=== PATIENT | male | born 1965 | race Caucasian/White ===

== ENCOUNTER 2019-08-26 19:35 | Emergency (ER) | payer BC ==
[~2019-08-26] VITALS: Ht 172.7 cm; Wt 96.2 kg
[~2019-08-26 19:35] MED LIST: GABAPENTIN300 MG PO; JARDIANCE PO; LISINOPRIL-HCT1 EAC1 PO; LISINOPRIL10 MG PO; LOVASTATIN20 MG PO; METFORMIN HCL500 MG PO
--- OUTSIDE RECORDS SUMMARY | 2019-08-26 19:38 | XMS REPORT ---
Author Author Admin, [place] Organization [facility] [address] [facility] [address] [place] [address] Phone Allergies, Adverse Reactions, Alerts Allergy Name Reaction Description Start Date Severity Status Provider NIFEDIPINE Facial swelling Critical Active Jennifer Malin MD CHLORTHALIDONE Facial swelling Critical Active Jennifer Malin MD Conditions or Problems Problem Name Problem Code Onset Date Status Entry Date Provider Comment Standard Description Annotate Health care maintenance V70.0 Active Jennifer Malin MD Routine general medical examination at a health care facility Liver function abnormality 794.8 Active Jennifer Malin MD Nonspecific abnormal results of function study of liver Obesity 278.00 Active Jennifer Malin MD Obesity, unspecified Tobacco use Active Jennifer Malin MD Tobacco use disorder Microalbuminuria 791.0 Active Ramiro Rizzo [employer] Proteinuria Peripheral vascular insufficiency 443.89 Active Ramiro Payam Friend'Isidro [employer] Other peripheral vascular disease Hyperlipidemia 272.4 Active Ramiro Payam Ronna'Isidro [employer] Other and unspecified hyperlipidemia Vitamin D deficiency 268.9 Active Ramiro Friend'Isidro [employer]C Unspecified vitamin D deficiency Diabetes mellitus, type II on oral hypoglycemics 250.00 Active Ramiro Friend'Isidro [employer] Diabetes mellitus without mention of complication, type II or unspecified type, not stated as uncontrolled A1c 9 Diabetic peripheral neuropathy 250.60 Active Ramiro Friend'Isidro [employer] Diabetes mellitus with neurological manifestations, type II or unspecified type, not stated as uncontrolled Erectile dysfunction 302.72 Active Ramiro Payam O'Isidro [employer] Psychosexual dysfunction with inhibited sexual excitement T level appropriate Hx of syncope V12.59 Active Ramiro Payam O'Isidro [employer] Other personal history of diseases of circulatory system Hypertension 401.1 Active Ramiro Payam O'Isidro [employer] Benign essential hypertension BMI 31.0-31.9 Inactive Jennifer Malin MD BMI 29.0-29.9 Inactive Ramiro Payam O'Isidro [employer] Colorectal screening ICD-V76.51 Inactive Ramiro Payam O'Isidro [employer] Preventive health care ICD-V70.0 Inactive Ramiro Payam O'Isidro [employer] Prostate Cancer, Screening ICD-V76.44 Inactive Ramiro Payam O'Isidro [employer] Candidal balanitis ICD-112.2 Inactive Ramiro Payam O'Isidro [employer] Immunization update ICD-V15.9 Inactive Ramiro Payam O'Isidro [employer] BMI 32.0-32.9 Inactive Ramiro Payam O'Isidro [employer] Bronchitis ICD-490 Inactive Ramiro Payam O'Isidro [employer] Vaccination Against Influenza V04.81 Inactive Ramiro Payam Ronna'Isidro [employer] Need for prophylactic vaccination and inoculation against influenza at outside clinic Vaccination Against Influenza ICD-V04.81 Inactive Ramiro Payam Ronna'Isidro [employer]C Helicobacter pylori gastrointestinal tract infection ICD-041.86 Inactive Ramiro Payam O'Isidro [employer] Hypercholesterolemia 272.0 Inactive Ramiro Hare O'Isidro [employer]C Pure hypercholesterolemia 10y ASCVD=15.9%; consider high intensity statin Abdominal pain, left upper quadrant ICD-789.02 Inactive Ramiro Hare O'Isidro [employer] Overweight ICD-278.02 Inactive Jennifer Malin MD BMI 31.0-31.9 Resolved Jennifer Malin MD Body Mass Index 31.0-31.9, adult BMI 29.0-29.9 Resolved Ramiro Payam O'Isidro [employer] Body Mass Index 29.0-29.9, adult Colorectal screening V76.51 Resolved Ramiro Hare O'Isidro [employer]C Screening for malignant neoplasms of colon Preventive health care V70.0 Resolved Ramiro Payam O'Isidro [employer]-C Routine general medical examination at a health care facility Prostate Cancer, Screening V76.44 Resolved Ramiro Payam O'Isidro [employer] Screening for malignant neoplasms of prostate Candidal balanitis 112.2 Resolved Ramiro Hare O'Isidro [employer]C Candidiasis of other urogenital sites Immunization update V15.9 Resolved Ramiro Friend'Isidro [employer]C Unspecified personal history presenting hazards to health BMI 32.0-32.9 Resolved Ramiro Payam O'Isidro [employer] Body Mass Index 32.0-32.9, adult Bronchitis 490 Resolved Ramiro Payam O'Isidro [employer] Bronchitis, not specified as acute or chronic Helicobacter pylori gastrointestinal tract infection 041.86 Resolved Ramiro Hare O'Isidro [employer] Helicobacter pylori [H. pylori] Abdominal pain, left upper quadrant 789.02 Resolved Ramiro Rizzo [employer]C Abdominal pain, left upper quadrant Overweight 278.02 Resolved Jennifer Malin MD Overweight Medication List Medication Instructions Start Date Stop Date Generic Name NDC Status Provider Patient Instruction ATORVASTATIN CALCIUM 10 MG TABS Take one daily ATORVASTATIN CALCIUM 41879487321 Active Paula Norman [employer]ER Active HYDROCHLOROTHIAZIDE 25 MG ORAL TABLET 1 by mouth every day HYDROCHLOROTHIAZIDE 17465532564 Active Paula Norman [employer]LE SPR[employer]ER Active JANUVIA 100 MG TABLET TAKE ONE TABLET BY MOUTH EVERY DAY SITAGLIPTIN PHOSPHATE 98927200752 Active Jessica Herbert MD Active OLMESARTAN MEDOXOMIL 40 MG ORAL TABLET 1 tab By Mouth Every Day OLMESARTAN MEDOXOMIL 20048515129 Active Paula Norman [employer]LE [employer]ER Active GLIPIZIDE 10 MG ORAL TABLET take 1 tablet Twice a Day GLIPIZIDE 61594624672 Active Paula Norman [employer]ATTLE SPRAYER Active METFORMIN HCL 1000 MG ORAL TABLET 1 tab by mouth twice a day METFORMIN HCL 06160667280 Active Paula Norman [employer]LE SPR[employer]ER Active ASPIRIN 81 MG ORAL TABLET 1 by mouth every day ASPIRIN 34917249602 Active Ramiro Rizzo [employer] Active GABAPENTIN 300 MG ORAL CAPSULE 2 caps By Mouth Twice a Day GABAPENTIN 91379101966 Active Karen Bishop MedAdherence Active CHLORTHALIDONE 25 MG ORAL TABLET 1 tab By Mouth Every Morning CHLORTHALIDONE 25 MG ORAL TABLET 453665 CHLORTHALIDONE Inactive NIFEDIPINE ER 90 MG ORAL TABLET EXTENDED RELEASE 24 HOUR 1 by mouth every day NIFEDIPINE ER 90 MG ORAL TABLET EXTENDED RELEASE 24 HOUR NIFEDIPINE Inactive JANUVIA 50 MG ORAL TABLET 1 By Mouth once a day JANUVIA 50 MG ORAL TABLET SITAGLIPTIN PHOSPHATE Inactive DIFLUCAN 150 MG ORAL TABLET 1 by mouth now. May repeat in three days. DIFLUCAN 150 MG ORAL TABLET 19760717 FLUCONAZOLE Inactive DIFLUCAN 150 MG ORAL TABLET 1 tab by mouth now. Repeat in three days. DIFLUCAN 150 MG ORAL TABLET 19760717 FLUCONAZOLE Inactive FARXIGA 5 MG ORAL TABLET Take 1 tablet by mouth daily FARXIGA 5 MG ORAL TABLET DAPAGLIFLOZIN PROPANEDIOL Inactive BROMFED DM 30-2-10 MG/5ML ORAL SYRUP 10 mL every four hours as needed for cough/congestion BROMFED DM 30-2-10 MG/5ML ORAL SYRUP 3035630 [id number] Inactive FLONASE ALLERGY RELIEF 50 MCG/ACT NASAL SUSPENSION 1 spray in each nostril every day As Needed FLONASE ALLERGY RELIEF 50 MCG/ACT NASAL SUSPENSION 7143508 FLUTICASONE PROPIONATE Inactive MEDROL 4 MG ORAL TABLET THERAPY PACK use as directed MEDROL 4 MG ORAL TABLET THERAPY PACK 164618 METHYLPREDNISOLONE Inactive AMLODIPINE BESYLATE 10 MG ORAL TABLET 1 tab by mouth daily AMLODIPINE BESYLATE 10 MG ORAL TABLET 807934 AMLODIPINE BESYLATE Inactive GLIPIZIDE XL 5 MG ORAL TABLET EXTENDED RELEASE 24 HOUR 1 tab By Mouth Every Day with first meal GLIPIZIDE XL 5 MG ORAL TABLET EXTENDED RELEASE 24 HOUR GLIPIZIDE Inactive NIFEDIPINE ER 90 MG ORAL TABLET EXTENDED RELEASE 24 HOUR 1 by mouth every day NIFEDIPINE ER 90 MG ORAL TABLET EXTENDED RELEASE 24 HOUR NIFEDIPINE Inactive AMOXICILLIN 500 MG ORAL CAPSULE 1 by mouth Twice a Day for 14 days AMOXICILLIN 500 MG ORAL CAPSULE 153817 AMOXICILLIN Inactive BIAXIN 500 MG ORAL TABLET 1 by mouth twice a day for 14 days BIAXIN 500 MG ORAL TABLET CLARITHROMYCIN Inactive GLIMEPIRIDE 2 MG ORAL TABLET 1 By Mouth Twice a Day with largest meals GLIMEPIRIDE 2 MG ORAL TABLET 243136 GLIMEPIRIDE Inactive LIPITOR 40 MG ORAL TABLET 1 by mouth every pm LIPITOR 40 MG ORAL TABLET 858942 ATORVASTATIN CALCIUM Inactive OMEPRAZOLE 20 MG ORAL CAPSULE DELAYED RELEASE 1 by mouth Twice a Day for 14 days OMEPRAZOLE 20 MG ORAL CAPSULE DELAYED RELEASE 437464 OMEPRAZOLE Inactive JANUMET 50-1000 MG ORAL TABLET 1 tab By Mouth Twice a Day JANUMET 50-1000 MG ORAL TABLET SITAGLIPTIN-METFORMIN HCL Inactive LISINOPRIL 20 MG ORAL TABLET 1 by mouth every day in the evening LISINOPRIL 20 MG ORAL TABLET 473721 LISINOPRIL Inactive LISINOPRIL-HYDROCHLOROTHIAZIDE 20-25 MG ORAL TABLET 1 by mouth daily in the morning LISINOPRIL-HYDROCHLOROTHIAZIDE 20-25 MG ORAL TABLET 542416 LISINOPRIL-HYDROCHLOROTHIAZIDE Inactive CHLORTHALIDONE 25 MG ORAL TABLET 1 tab By Mouth Every Morning CHLORTHALIDONE 37347726920 No Longer Active Jennifer Malin MD Active NIFEDIPINE ER 90 MG ORAL TABLET EXTENDED RELEASE 24 HOUR 1 by mouth every day NIFEDIPINE 27905333087 No Longer Active Jennifer Malin MD Active JANUVIA 50 MG ORAL TABLET 1 By Mouth once a day SITAGLIPTIN PHOSPHATE 39664443497 No Longer Active Ramiro Rizzo [employer]ER-C Active DIFLUCAN 150 MG ORAL TABLET 1 by mouth now. May repeat in three days. FLUCONAZOLE 14360781920 No Longer Active Ramiro Rizzo [employer]-C Active DIFLUCAN 150 MG ORAL TABLET 1 tab by mouth now. Repeat in three days. FLUCONAZOLE 29340530015 No Longer Active Ramiro Rizzo [employer]-C Active FARXIGA 5 MG ORAL TABLET Take 1 tablet by mouth daily DAPAGLIFLOZIN PROPANEDIOL 96877024445 No Longer Active Jessica Herbert MD Active INVOKANA 300 MG ORAL TABLET 1 tab By Mouth Every Morning CANAGLIFLOZIN 92240891581 No Longer Active Ramiro Rizzo [employer]ER-C Active JARDIANCE 25 MG ORAL TABLET 1 tab By Mouth Every Morning EMPAGLIFLOZIN 40362749400 No Longer Active Ramiro Rizzo [employer]-C Active BROMFED DM 30-2-10 MG/5ML ORAL SYRUP 10 mL every four hours as needed for cough/congestion [id number] 45302646713 No Longer Active Ramiro Rizzo [employer]ER-C Active FLONASE ALLERGY RELIEF 50 MCG/ACT NASAL SUSPENSION 1 spray in each nostril every day As Needed FLUTICASONE PROPIONATE 76482356929 No Longer Active Jennifer Malin MD Active MEDROL 4 MG ORAL TABLET THERAPY PACK use as directed METHYLPREDNISOLONE 01733518169 No Longer Active Ramiro Rizzo [employer]ER-C Active AMLODIPINE BESYLATE 10 MG ORAL TABLET 1 tab by mouth daily AMLODIPINE BESYLATE 47831646888 No Longer Active Ramiro Rizzo [employer]ER-C Active GLIPIZIDE XL 5 MG ORAL TABLET EXTENDED RELEASE 24 HOUR 1 tab By Mouth Every Day with first meal GLIPIZIDE 64149624630 No Longer Active Ramiro Rizzo [employer]ER-C Active NIFEDIPINE ER 90 MG ORAL TABLET EXTENDED RELEASE 24 HOUR 1 by mouth every day NIFEDIPINE 48071313563 No Longer Active Ramiro Rizzo [employer]ER-C Active AMOXICILLIN 500 MG ORAL CAPSULE 1 by mouth Twice a Day for 14 days AMOXICILLIN 53065782141 No Longer Active Ramiro Rizzo [employer]ER-C Active BIAXIN 500 MG ORAL TABLET 1 by mouth twice a day for 14 days CLARITHROMYCIN 27955669219 No Longer Active Ramiro Rizzo [employer]ER-C Active GLIMEPIRIDE 2 MG ORAL TABLET 1 By Mouth Twice a Day with largest meals GLIMEPIRIDE 19697388369 No Longer Active Ramiro Rizzo [employer]ER-C Active LIPITOR 40 MG ORAL TABLET 1 by mouth every pm ATORVASTATIN CALCIUM 43383914418 No Longer Active Ramiro Rizzo [employer]ER-C Active LOVASTATIN 20 MG ORAL TABLET 1 by mouth every night LOVASTATIN 23013829656 No Longer Active Ramiro Rizzo [employer]ER-C Active OMEPRAZOLE 20 MG ORAL CAPSULE DELAYED RELEASE 1 by mouth Twice a Day for 14 days OMEPRAZOLE 65828688845 No Longer Active Ramiro Payam Rizzo [employer]ER-C Active JANUMET 50-1000 MG ORAL TABLET 1 tab By Mouth Twice a Day SITAGLIPTIN-METFORMIN HCL 18728459323 No Longer Active Ramiro Rizzo [employer]ER-C Active LISINOPRIL 20 MG ORAL TABLET 1 by mouth every day in the evening LISINOPRIL 22763022943 No Longer Active Ramiro Payam Rizzo [employer]ER-C Active LISINOPRIL-HYDROCHLOROTHIAZIDE 20-25 MG ORAL TABLET 1 by mouth daily in the morning LISINOPRIL-HYDROCHLOROTHIAZIDE 45228078712 No Longer Active Ramiro Payam Rizzo [employer]ER-C Active METFORMIN HCL 1000 MG ORAL TABLET 1 by mouth twice a day METFORMIN HCL 46457501404 No Longer Active Ramiro Rizzo [employer]ER-C Active Advance Directives Directive Description Start Date DISCUSSED - NO DECISION MADE Immunizations Vaccine Administration Date Value Standard Description influenza immunization (Flu Vax) has been administered given influenza virus vaccine, unspecified formulation pneumococcal immunization administered given pneumococcal polysaccharide vaccine, 23 valent PEDIATRIC PNEUMOCOCCAL VACCINE ([id number]) #1 given pneumococcal conjugate vaccine, 13 valent Tetanus toxoid, reduced diphtheria toxoid and acellular Pertussis vaccine, absorbed (TdaP) given given tetanus toxoid, reduced diphtheria toxoid, and acellular pertussis vaccine, adsorbed Vital Signs Date Name Value Unit Range Description blood pressure, diastolic 89 mm[Hg] BP dumont blood pressure, systolic 192 mm[Hg] BP sys height E&M 69 [in_us] Bdy height pulse rate E&M 68 /min Heart rate respiratory rate E&M 18 /min Resp rate temperature E&M 97.5 [degF] Body temperature weight E&M 218 [lb_av] Weight Measured blood pressure, diastolic, second observation 91 mm[Hg] BP dumont blood pressure, diastolic, third observation 84 mm[Hg] BP dumont blood pressure, diastolic 84 mm[Hg] BP dumont blood pressure, systolic, second observation 199 mm[Hg] BP sys blood pressure, systolic, third observation 191 mm[Hg] BP sys blood pressure, systolic 191 mm[Hg] BP sys height E&M 69 [in_us] Bdy height pulse rate E&M 58 /min Heart rate respiratory rate E&M 12 /min Resp rate temperature E&M 98.1 [degF] Body temperature weight E&M 221 [lb_av] Weight Measured blood pressure, diastolic 76 mm[Hg] BP dumont blood pressure, systolic 162 mm[Hg] BP sys height E&M 69 [in_us] Bdy height pulse rate E&M 63 /min Heart rate temperature E&M 98.3 [degF] Body temperature weight E&M 215 [lb_av] Weight Measured blood pressure, diastolic 90 mm[Hg] BP dumont blood pressure, systolic 171 mm[Hg] BP sys height E&M 69 [in_us] Bdy height pulse rate E&M 59 /min Heart rate temperature E&M 97.6 [degF] Body temperature weight E&M 208.44 [lb_av] Weight Measured Diagnostic Results Date Name Value Unit Range Description Lab Report: CBC With Differential/Platelet, Comp. Metabolic Panel (14), ... - Urinalysis mucus on urinalysis Present Not Estab. Lab Report: CBC With Differential/Platelet, Comp. Metabolic Panel (14), ... - Chemistry thyroid stimulating hormone, serum 3.010 u[iU]/mL 0.450-4.500 Lab Report: CBC With Differential/Platelet, Comp. Metabolic Panel (14), ... - Urinalysis WBC urine on microscopy 0-5 /hpf {Cells}/[HPF] 0 - 5 Lab Report: CBC With Differential/Platelet, Comp. Metabolic Panel (14), ... - Chemistry very low density lipoproteins 27 mg/dL 5-40 testosterone, total 776 ng/dL [id number] hepatitis B surface antigen Negative Negative Lab Report: CBC With Differential/Platelet, Comp. Metabolic Panel (14), ... - Urinalysis epithelial cells, urine 0-10 /[LPF] 0 - 10 Lab Report: CBC With Differential/Platelet, Comp. Metabolic Panel (14), ... - Chemistry chloride, serum 100 mmol/L 96-106 urea nitrogen, blood 14 mg/dL 6-24 Lab Report: CBC With Differential/Platelet, Comp. Metabolic Panel (14), ... - Urinalysis leukocyte esterase, urine, by dipstick Negative Negative Lab Report: CBC With Differential/Platelet, Comp. Metabolic Panel (14), ... - Serology Helicobacter pylori antibody, IgG, serum 5.4 U/mL 0.0-0.8 Lab Report: QuantiFERON TB Gold (In Tube), QuantiFERON In Tube - Hematology Quantiferon Gold TB blood test for tuberculosis screening Negative Negative Lab Report: CBC With Differential/Platelet, Comp. Metabolic Panel (14), ... - Hematology mean corpuscular hemoglobin concentration, RBC 33.4 G/DL % 31.5-35.7 erythrocyte (RBC) count 3.89 X10E6/UL 10*6/mm3 4.14-5.80 Lab Report: CBC With Differential/Platelet, Comp. Metabolic Panel (14), ... - Serology hepatitis C antibody, serum 0.1 0.0-0.9 Lab Report: CBC With Differential/Platelet, Comp. Metabolic Panel (14), ... - Urinalysis urine color Yellow Yellow Lab Report: CBC With Differential/Platelet, Comp. Metabolic Panel (14), ... - Chemistry Absolute Neutrophils 5.0 X10E3/UL 10*3/uL 1.4-7.0 Lab Report: CBC With Differential/Platelet, Comp. Metabolic Panel (14), ... - Urinalysis bilirubin, urine Negative Negative Lab Report: CBC With Differential/Platelet, Comp. Metabolic Panel (14), ... - Chemistry LDL cholesterol, serum 104 mg/dL 0-99 urea nitrogen/creatinine ratio, serum 14 9-20 Lab Report: CBC With Differential/Platelet, Comp. Metabolic Panel (14), ... - Hematology mean corpuscular volume, RBC 98 fL 79-97 Lab Report: CBC With Differential/Platelet, Comp. Metabolic Panel (14), ... - Chemistry HDL cholesterol, serum 76 mg/dL >39 Lab Report: CBC With Differential/Platelet, Comp. Metabolic Panel (14), ... - Hematology monocytes as percent of blood leukocytes 10 % Not Estab. Lab Report: CBC With Differential/Platelet, Comp. Metabolic Panel (14), ... - Chemistry albumin/globulin ratio, serum 1.0 1.2-2.2 creatinine, serum 1.00 mg/dL 0.76-1.27 cholesterol, serum 207 mg/dL 100-199 Lab Report: Albumin/Creatinine Ratio,Urine - Chemistry creatinine, random, urine 86.4 mg/dL Not Estab. Lab Report: CBC With Differential/Platelet, Comp. Metabolic Panel (14), ... - Chemistry bilirubin, serum, total 0.4 mg/dL 0.0-1.2 Lab Report: CBC With Differential/Platelet, Comp. Metabolic Panel (14), ... - Hematology Eosinophil Absolute Count 0.3 X10E3/UL 10*3/uL 0.0-0.4 Lab Report: CBC With Differential/Platelet, Comp. Metabolic Panel (14), ... - Lab chlamydia DNA probe Negative Negative Lab Report: CBC With Differential/Platelet, Comp. Metabolic Panel (14), ... - Urinalysis appearance, urine Clear Clear Lab Report: CBC With Differential/Platelet, Comp. Metabolic Panel (14), ... - Chemistry aspartate aminotransferase (SGOT), serum 62 U/L 0-40 Lab Report: CBC With Differential/Platelet, Comp. Metabolic Panel (14), ... - Hematology red blood cell distribution width 14.1 % 12.3-15.4 Lab Report: CBC With Differential/Platelet, Comp. Metabolic Panel (14), ... - Urinalysis urinalysis, microscopic examination MICRON Lab Report: CBC With Differential/Platelet, Comp. Metabolic Panel (14), ... - Hematology leukocyte count, blood 8.2 X10E3/UL 10*3/mm3 3.4-10.8 Lab Report: CBC With Differential/Platelet, Comp. Metabolic Panel (14), ... - Urinalysis pH, urine, semiquantitative 5.5 5.0-7.5 Lab Report: CBC With Differential/Platelet, Comp. Metabolic Panel (14), ... - Chemistry potassium, serum 4.8 mmol/L 3.5-5.2 immature granulocytes, percentage of total cells, blood 0 % Not Estab. albumin, serum 3.6 g/dL 3.5-5.5 Lab Report: CBC With Differential/Platelet, Comp. Metabolic Panel (14), ... - Hematology lymphocyte count, blood, automated 2.0 X10E3/UL 10*3/mm3 0.7-3.1 hematocrit, blood 38.0 % 37.5-51.0 Lab Report: CBC With Differential/Platelet, Comp. Metabolic Panel (14), ... - Microbiology Neisseria gonorrhoeae DNA probe Negative Negative Lab Report: CBC With Differential/Platelet, Comp. Metabolic Panel (14), ... - Chemistry sodium, serum 138 mmol/L 134-144 Lab Report: CBC With Differential/Platelet, Comp. Metabolic Panel (14), ... - Hematology neutrophils as percent of blood leukocytes 62 % Not Estab. basophils as percent of blood leukocytes 0 % Not Estab. Lab Report: CBC With Differential/Platelet, Comp. Metabolic Panel (14), ... - Chemistry specific gravity, body fluid >1.030 1.005-1.030 RBC, Urine 0-2 /hpf /[HPF] 0 - 2 Lab Report: CBC With Differential/Platelet, Comp. Metabolic Panel (14), ... - Urinalysis protein, urine, semiquantitative (dipstick) Negative Negative/Trace Lab Report: CBC With Differential/Platelet, Comp. Metabolic Panel (14), ... - Serology rapid plasma reagin antibody, serum Non Reactive Non Reactive Lab Report: CBC With Differential/Platelet, Comp. Metabolic Panel (14), ... - Microbiology microscopic exam See below: Lab Report: CBC With Differential/Platelet, Comp. Metabolic Panel (14), ... - Chemistry carbon dioxide, venous blood 22 mmol/L 20-29 nitrate, urine Negative Negative triglyceride, serum, fasting 137 mg/dL 0-149 calcium, serum 9.1 mg/dL 8.7-10.2 Lab Report: Albumin/Creatinine Ratio,Urine - Chemistry microalbumin/creatinine ratio, urine 3742.4 MG/G CREAT ug/mg 0.0-30.0 Lab Report: CBC With Differential/Platelet, Comp. Metabolic Panel (14), ... - Chemistry alanine aminotransferase (SGPT), serum 81 U/L 0-44 Lab Report: CBC With Differential/Platelet, Comp. Metabolic Panel (14), ... - Hematology mean corpuscular hemoglobin, RBC 32.6 pg 26.6-33.0 Append: Adult Followup - Chemistry blood glucose, fasting 138 mg/dL Lab Report: CBC With Differential/Platelet, Comp. Metabolic Panel (14), ... - Chemistry lipase, serum 38 U/L [iU]/L 0-59 Lab Report: CBC With Differential/Platelet, Comp. Metabolic Panel (14), ... - Urinalysis bacteria, urine microscopy None seen None seen/Few Lab Report: CBC With Differential/Platelet, Comp. Metabolic Panel (14), ... - Chemistry protein, total, serum 7.3 g/dL 6.0-8.5 alkaline phosphatase, serum 305 U/L 39-117 Lab Report: CBC With Differential/Platelet, Comp. Metabolic Panel (14), ... - Hematology hemoglobin, blood 12.7 g/dL 13.0-17.7 lymphocytes as percent of blood leukocytes 24 % Not Estab. Lab Report: CBC With Differential/Platelet, Comp. Metabolic Panel (14), ... - Chemistry hemoglobin A1C, blood, as % of total hemoglobin 9.8 % 4.8-5.6 Lab Report: CBC With Differential/Platelet, Comp. Metabolic Panel (14), ... - Urinalysis glucose, urine, semiquantitative 3+ Negative Lab Report: CBC With Differential/Platelet, Comp. Metabolic Panel (14), ... - Genetics/fertility eGFR if 99 mL/min/1.73m2 >59 Lab Report: CBC With Differential/Platelet, Comp. Metabolic Panel (14), ... - Hematology basophil count, absolute 0.0 x10E3/uL 0.0-0.2 Lab Report: CBC With Differential/Platelet, Comp. Metabolic Panel (14), ... - Chemistry globulin, serum 3.7 1.5-4.5 Estimated Glomerular Filtration Rate (calc) 86 mL/min/1.73m2 >59 vitamin D 25-hydroxy, serum 25.3 ng/mL 30.0-100.0 Lab Report: CBC With Differential/Platelet, Comp. Metabolic Panel (14), ... - Basic Occult Blood, urine Negative Negative Lab Report: CBC With Differential/Platelet, Comp. Metabolic Panel (14), ... - Chemistry testosterone, serum, free 5.7 pg/mL 7.2-24.0 Lab Report: Albumin/Creatinine Ratio,Urine - Urinalysis microalbumin/total urine volume 3233.4 mg/L Not Estab. Lab Report: CBC With Differential/Platelet, Comp. Metabolic Panel (14), ... - Hematology eosinophils as percent of blood leukocytes 4 % Not Estab. Office Visit: Adult Followup rm 1.1 - Chemistry blood glucose, random 292 mg/dL Lab Report: CBC With Differential/Platelet, Comp. Metabolic Panel (14), ... - Urinalysis urobilinogen, urine, semiquantitative (dipstick) 0.2 0.2-1.0 Lab Report: CBC With Differential/Platelet, Comp. Metabolic Panel (14), ... - Chemistry prostate specific antigen 0.8 ng/mL 0.0-4.0 amylase, serum 44 U/L 31-124 Lab Report: CBC With Differential/Platelet, Comp. Metabolic Panel (14), ... - Hematology monocyte count, blood, automated 0.9 X10E3/UL 10*3/uL 0.1-0.9 platelet count 291 X10E3/UL 10*3/mm3 150-379 Lab Report: CBC With Differential/Platelet, Comp. Metabolic Panel (14), ... - Urinalysis ketones, urine, by test strip Negative Negative Encounters Date Encounter Provider Code Facility 05:47:04 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 Ofc Vst, Est Level IV Paula Norman [facility] CPT-16309 [facility] 09:22:37 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 Est Patient Detailed - 73596 Jennifer Malin MD CPT-73293 [facility] 13:43:17 CDT Est Patient Detailed - 27916 Ramiro Rizzo [facility] CPT-46950 [facility] 10:46:18 CDT Ofc Vst, Est Level IV Jessica Herbert MD CPT-99569 [facility] 12:28:41 CDT Ofc Vst, Est Level IV Jessica Herbert MD CPT-98014 [facility] 16:41:49 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 Est Patient Detailed - 16440 Ramiro Rizzo [facility] [facility] [id number] [facility] 10:27:20 CDT Est Patient Detailed - [id number] Ramiro Friend'Isidro CATTLE SPRAYER-C CPT-63702 [facility] 09:14:47 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 Est Patient Detailed - [id number] Ramiro Friend'Isidro CATTLE SPRAYER-C CPT-43095 [facility] 09:10:51 CDT Est Patient Exp Problem - 61030 Ramiro Friend'Isidro CATTLE SPRAYER-C CPT-32488 [facility] 09:13:46 CDT Est Patient Exp Problem - [id number] Ramiro Hare O'Isidro CATTLE SPRAYER-C CPT-93759 [facility] 09:32:15 CDT Est Patient Exp Problem - 47389 Ramiro Friend'Isidro CATTLE SPRAYER-C CPT-40366 [facility] 15:37:18 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 Est Patient Problem Focus - [id number] Ramiro Friend'Isidro CATTLE SPRAYER-C CPT-25913 [facility] 10:58:05 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 Est Patient Exp Problem - 12487 Ramiro Friend'Isidro CATTLE SPRAYER-C CPT-51211 [facility] 17:14:40 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 New Patient Comprehensive - [id number] Ramiro العراقيIsidro CATTLE SPRAYER-C CPT-27162 [facility] Procedures Code Procedure Name Date Entry Date Standard Description CPT-67574 INFLUENZA VACCINE QUADRIVALENT 3 YRS PLUS IM 09:22:50 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 CPT-47093 Admin of Vaccine - Injection - 1 09:22:49 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 CPT-98018 Glucose Stick 10:46:18 CDT CPT-54150 Pneumovax Vaccine PPSV23 17:00:21 CDT CPT-27268 Admin of Vaccine - Injection - 1 17:00:21 CDT CPT-59666 Est Patient Well Exam (40 - 64 Yrs) - 19637 17:00:10 CDT CPT-67434 Prevnar (PCV13) IM 10:27:23 CDT CPT-67358 TDAP 10:27:23 CDT CPT-09817 Admin of Vaccine - Injection - Each Add'l 10:27:23 CDT CPT-82460 Admin of Vaccine - Injection - 1 10:27:23 CDT CPT-37660 Glucose Stick 10:58:08 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 CPT-68215 Glucose Stick 17:14:43 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 CPT-41368 Venipuncture 17:14:43 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 CPT-44834 Handling of specimen for transfer 17:14:42 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
--- OUTSIDE RECORDS SUMMARY | 2019-08-26 19:38 | XMS REPORT ---
Author Author Admin, [place] Organization [facility] Adult [facility] Address [address] [facility] [address] [address] [place] [address] Phone Allergies, Adverse Reactions, Alerts Allergy Name Reaction Description Start Date Severity Status Provider NIFEDIPINE Facial swelling Critical Active Jennifer Malin MD CHLORTHALIDONE Facial swelling Critical Active Jennifer Malin MD Conditions or Problems Problem Name Problem Code Onset Date Status Entry Date Provider Comment Standard Description Annotate Allergic rhinitis, seasonal 477.0 Active Paula Norman WATERSHED TENDER Allergic rhinitis due to pollen Rash and other nonspecific skin eruption 782.1 Active Paula Norman WATERSHED TENDER Rash and other nonspecific skin eruption Health care maintenance V70.0 Active Jennifer Malin MD Routine general medical examination at a health care facility Liver function abnormality 794.8 Active Jennifer Malin MD Nonspecific abnormal results of function study of liver Obesity 278.00 Active Jennifer Malin MD Obesity, unspecified Tobacco use Active Jennifer Malin MD Tobacco use disorder Microalbuminuria 791.0 Active Ramiro Rizzo [employer]-C Proteinuria Peripheral vascular insufficiency 443.89 Active Ramiro Friend'Isidro [employer]ER-C Other peripheral vascular disease Hyperlipidemia 272.4 Active Ramiro Friend'Isidro [employer]-C Other and unspecified hyperlipidemia Vitamin D deficiency 268.9 Active Ramiro Friend'Isidro [employer]-C Unspecified vitamin D deficiency Diabetes mellitus, type II on oral hypoglycemics 250.00 Active Ramiro Payam O'Isidro [employer]-C Diabetes mellitus without mention of complication, type II or unspecified type, not stated as uncontrolled A1c 9 Diabetic peripheral neuropathy 250.60 Active Ramiro Payam FriendTimIsidro [employer] T[employer]-C Diabetes mellitus with neurological manifestations, type II or unspecified type, not stated as uncontrolled Erectile dysfunction 302.72 Active Ramiro Payam FriendTimIsidro [employer]-C Psychosexual dysfunction with inhibited sexual excitement T level appropriate Hx of syncope V12.59 Active Ramiro Payam Friend'Isidro [employer]-C Other personal history of diseases of circulatory system Hypertension 401.1 Active Ramiro Friend'Isidro [employer]ER-C Benign essential hypertension BMI 31.0-31.9 Inactive Jennifer Malin MD BMI 29.0-29.9 Inactive Ramiro Payam Ronna'Isidro [employer] TENDER-C Colorectal screening ICD-V76.51 Inactive Ramiro Payam Ronna'Isidro [employer]ER-C Preventive health care ICD-V70.0 Inactive Ramiro Payam O'Isidro [employer] Prostate Cancer, Screening ICD-V76.44 Inactive Ramiro Payam Ronna'Isidro [employer]-C Candidal balanitis ICD-112.2 Inactive Ramiro Payam Ronna'Isidro [employer]-C Immunization update ICD-V15.9 Inactive Ramiro Payam Ronna'Isidro [employer] T[employer]ER-C BMI 32.0-32.9 Inactive Ramiro Payam O'Isidro [employer]-C Bronchitis ICD-490 Inactive Ramiro Payam Ronna'Isidro [employer]-C Vaccination Against Influenza V04.81 Inactive Ramiro Friend'Isidro [employer]ER-C Need for prophylactic vaccination and inoculation against influenza at outside clinic Vaccination Against Influenza ICD-V04.81 Inactive Ramiro Payam O'Isidro [employer]C Helicobacter pylori gastrointestinal tract infection ICD-041.86 Inactive Ramiro Payam O'Isidro [employer]-C Hypercholesterolemia 272.0 Inactive Ramiro Payam O'Isidro [employer]SH[employer] TENDER-C Pure hypercholesterolemia 10y ASCVD=15.9%; consider high intensity statin Abdominal pain, left upper quadrant ICD-789.02 Inactive Ramiro Payam O'Isidro [employer]-C Overweight ICD-278.02 Inactive Jennifer Malin MD BMI 31.0-31.9 Resolved Jennifer Malin MD Body Mass Index 31.0-31.9, adult BMI 29.0-29.9 Resolved Ramiro Payam Ronna'Isidro [employer]SH[employer] TENDER-C Body Mass Index 29.0-29.9, adult Colorectal screening V76.51 Resolved Ramiro Payam O'Isidro [employer] T[employer]-C Screening for malignant neoplasms of colon Preventive health care V70.0 Resolved Ramiro Payam O'Isidro [employer]SH[employer] TENDER-C Routine general medical examination at a health care facility Prostate Cancer, Screening V76.44 Resolved Ramiro Payam O'Isidro [employer] T[employer]ER-C Screening for malignant neoplasms of prostate Candidal balanitis 112.2 Resolved Ramiro Payam O'Isidro [employer]-C Candidiasis of other urogenital sites Immunization update V15.9 Resolved Ramiro Payam O'Isidro [employer]SH[employer] TENDER-C Unspecified personal history presenting hazards to health BMI 32.0-32.9 Resolved Ramiro Payam O'Isidro [employer] T[employer]-C Body Mass Index 32.0-32.9, adult Bronchitis 490 Resolved Ramiro Payam O'Isidro [employer] TENDER-C Bronchitis, not specified as acute or chronic Helicobacter pylori gastrointestinal tract infection 041.86 Resolved Ramiro Hare Matthias [employer]SH[employer] TENDER-C Helicobacter pylori [H. pylori] Abdominal pain, left upper quadrant 789.02 Resolved Ramiro Hare Matthias [employer]SH[employer] TENDER-C Abdominal pain, left upper quadrant Overweight 278.02 Resolved Jennifer Malin MD Overweight Medication List Medication Instructions Start Date Stop Date Generic Name NDC Status Provider Patient Instruction BD PEN NEEDLE SHORT U/F 31G X 8 MM use for lantus injections INSULIN PEN NEEDLE 78137728702 Active Jessica Herbert MD Active GLIPIZIDE 10 MG ORAL TABLET 1 tab By Mouth Twice a Day GLIPIZIDE 86592301507 Active Paula Norman WATERSHED TENDER Active LANTUS SOLOSTAR 100 UNIT/ML SUBCUTANEOUS SOLUTION PEN-INJECTOR inject 20 units daily at 9 AM INSULIN GLARGINE 60438476553 Active Jessica Herbert MD Active LORATADINE 10 MG ORAL TABLET 1 By Mouth once a day as needed for allergies LORATADINE 62341683532 Active Paula Norman [facility] Active NASONEX 50 MCG/ACT NASAL SUSPENSION 2 sprays each nostril every day MOMETASONE FUROATE 53800238103 Active Paula Norman WATERSHED TENDER Active TRIAMCINOLONE ACETONIDE 0.1 % EXTERNAL CREAM apply to affected area three times a day as needed for itching and red rash TRIAMCINOLONE ACETONIDE 48762811577 Active Paula Norman WATERSHED TENDER Active ATORVASTATIN CALCIUM 20 MG ORAL TABLET 1 tab By Mouth Every Day ATORVASTATIN CALCIUM 84741078773 Active Paula Norman WATERSHED TENDER Active HYDROCHLOROTHIAZIDE 25 MG ORAL TABLET 1 by mouth every day HYDROCHLOROTHIAZIDE 33067324710 Active Paula Norman WATERSHED TENDER Active JANUVIA 100 MG TABLET TAKE ONE TABLET BY MOUTH EVERY DAY SITAGLIPTIN PHOSPHATE 67466346241 Active Jessica Herbert MD Active AMLODIPINE BESYLATE 5 MG ORAL TABLET 1 tab by mouth daily AMLODIPINE BESYLATE 51955654152 Active Jessica Herbert MD Active LISINOPRIL 40 MG ORAL TABLET 1 by mouth every day LISINOPRIL 87769327303 Active Paula Norman WATERSHED TENDER Active METFORMIN HCL 1000 MG ORAL TABLET 1 tab by mouth twice a day METFORMIN HCL 44043758123 Active Paula Norman WATERSHED TENDER Active ASPIRIN 81 MG ORAL TABLET 1 by mouth every day ASPIRIN 63426553872 Active Ramiro Hare Matthias WATERSHED TENDER-C Active GABAPENTIN 300 MG ORAL CAPSULE 2 caps By Mouth Twice a Day GABAPENTIN 75481745213 Active 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[employer], 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 LANTUS SOLOSTAR 100 UNIT/ML SUBCUTANEOUS SOLUTION PEN-INJECTOR inject 20 units take at bedtime LANTUS SOLOSTAR 100 UNIT/ML SUBCUTANEOUS SOLUTION PEN-INJECTOR INSULIN GLARGINE Inactive CHLORTHALIDONE 25 MG ORAL TABLET 1 tab By Mouth Every Morning CHLORTHALIDONE 25 MG ORAL TABLET 024428 CHLORTHALIDONE Inactive NIFEDIPINE ER 90 MG ORAL TABLET EXTENDED RELEASE 24 HOUR 1 by mouth every day NIFEDIPINE ER 90 MG ORAL TABLET EXTENDED RELEASE 24 HOUR NIFEDIPINE Inactive GLIPIZIDE 10 MG ORAL TABLET take 1 tablet Twice a Day GLIPIZIDE 10 MG ORAL TABLET 747603 GLIPIZIDE Inactive JANUVIA 50 MG ORAL TABLET 1 By Mouth once a day JANUVIA 50 MG ORAL TABLET SITAGLIPTIN PHOSPHATE Inactive DIFLUCAN 150 MG ORAL TABLET 1 by mouth now. May repeat in three days. DIFLUCAN 150 MG ORAL TABLET 19760717 FLUCONAZOLE Inactive DIFLUCAN 150 MG ORAL TABLET 1 tab by mouth now. Repeat in three days. DIFLUCAN 150 MG ORAL TABLET 823594 FLUCONAZOLE Inactive FARXIGA 5 MG ORAL TABLET Take 1 tablet by mouth daily FARXIGA 5 MG ORAL TABLET DAPAGLIFLOZIN PROPANEDIOL Inactive BROMFED DM 30-2-10 MG/5ML ORAL SYRUP 10 mL every four hours as needed for cough/congestion BROMFED DM 30-2-10 MG/5ML ORAL SYRUP 4077779 LORRPZYAY-OWOHXURF-UC Inactive FLONASE ALLERGY RELIEF 50 MCG/ACT NASAL SUSPENSION 1 spray in each nostril every day As Needed FLONASE ALLERGY RELIEF 50 MCG/ACT NASAL SUSPENSION 6947637 FLUTICASONE PROPIONATE Inactive MEDROL 4 MG ORAL TABLET THERAPY PACK use as directed MEDROL 4 MG ORAL TABLET THERAPY PACK 211480 METHYLPREDNISOLONE Inactive AMLODIPINE BESYLATE 10 MG ORAL TABLET 1 tab by mouth daily AMLODIPINE BESYLATE 10 MG ORAL TABLET 432596 AMLODIPINE BESYLATE Inactive GLIPIZIDE XL 5 MG [...] 14 days AMOXICILLIN 500 MG ORAL CAPSULE 963923 AMOXICILLIN Inactive BIAXIN 500 MG ORAL TABLET 1 by mouth twice a day for 14 days BIAXIN 500 MG ORAL TABLET CLARITHROMYCIN Inactive GLIMEPIRIDE 2 MG ORAL TABLET 1 By Mouth Twice a Day with largest meals GLIMEPIRIDE 2 MG ORAL TABLET 225528 GLIMEPIRIDE Inactive LIPITOR 40 MG ORAL TABLET 1 by mouth every pm LIPITOR 40 MG ORAL TABLET 077653 ATORVASTATIN CALCIUM Inactive OMEPRAZOLE 20 MG ORAL CAPSULE DELAYED RELEASE 1 by mouth Twice a Day for 14 days OMEPRAZOLE 20 MG ORAL CAPSULE DELAYED RELEASE 961870 OMEPRAZOLE Inactive JANUMET 50-1000 MG ORAL TABLET 1 tab By Mouth Twice a Day JANUMET 50-1000 MG ORAL TABLET SITAGLIPTIN-METFORMIN HCL Inactive LISINOPRIL 20 MG ORAL TABLET 1 by mouth every day in the evening LISINOPRIL 20 MG ORAL TABLET 624133 LISINOPRIL Inactive LISINOPRIL-HYDROCHLOROTHIAZIDE 20-25 MG ORAL TABLET 1 by mouth daily in the morning LISINOPRIL-HYDROCHLOROTHIAZIDE 20-25 MG ORAL TABLET 069521 LISINOPRIL-HYDROCHLOROTHIAZIDE Inactive LANTUS SOLOSTAR 100 UNIT/ML SUBCUTANEOUS SOLUTION PEN-INJECTOR inject 20 units take at bedtime INSULIN GLARGINE 37443719961 No Longer Active Paula Canalesmalina POLK Active CHLORTHALIDONE 25 MG ORAL TABLET 1 tab By Mouth Every Morning CHLORTHALIDONE 54502502623 No Longer Active Jennifer Malin MD Active NIFEDIPINE ER 90 MG ORAL TABLET EXTENDED RELEASE 24 HOUR 1 by mouth every day NIFEDIPINE 57565204042 No Longer Active Jennifer Malin MD Active OLMESARTAN MEDOXOMIL 40 MG ORAL TABLET 1 tab By Mouth Every Day OLMESARTAN MEDOXOMIL 03736265449 No Longer Active Paula Castroelisa POLK Active GLIPIZIDE 10 MG ORAL TABLET take 1 tablet Twice a Day GLIPIZIDE 48320686296 No Longer Active Paula Emerson LOPEZP Active JANUVIA 50 MG ORAL TABLET 1 By Mouth once a day SITAGLIPTIN PHOSPHATE 93480627641 No Longer Active Ramiro Rizzo WATERSHED TENDER-C Active DIFLUCAN 150 MG ORAL TABLET 1 by mouth now. May repeat in three days. FLUCONAZOLE 93807277963 No Longer Active Ramiro Rizzo WATERSHED TENDER-C Active DIFLUCAN 150 MG ORAL TABLET 1 tab by mouth now. Repeat in three days. FLUCONAZOLE 95337178686 No Longer Active Ramiro Rizzo WATERSHED TENDER-C Active FARXIGA 5 MG ORAL TABLET Take 1 tablet by mouth daily DAPAGLIFLOZIN PROPANEDIOL 13701047159 No Longer Active Jessica Herbert MD Active INVOKANA 300 MG ORAL TABLET 1 tab By Mouth Every Morning CANAGLIFLOZIN 84708258820 No Longer Active Ramiro Rizzo WATERSHED TENDER-C Active JARDIANCE 25 MG ORAL TABLET 1 tab By Mouth Every Morning EMPAGLIFLOZIN 26098588177 No Longer Active Ramiro Rizzo WATERSHED TENDER-C Active BROMFED DM 30-2-10 MG/5ML ORAL SYRUP 10 mL every four hours as needed for cough/congestion [id number] 41363981896 No Longer Active Ramiro Rizzo WATERSHED TENDER-C Active FLONASE ALLERGY RELIEF 50 MCG/ACT NASAL SUSPENSION 1 spray in each nostril every day As Needed FLUTICASONE PROPIONATE 08126187860 No Longer Active Jennifer Malin MD Active MEDROL 4 MG ORAL TABLET THERAPY PACK use as directed METHYLPREDNISOLONE 96039183483 No Longer Active Ramiro Rizzo WATERSHED TENDER-C Active AMLODIPINE BESYLATE 10 MG ORAL TABLET 1 tab by mouth daily AMLODIPINE BESYLATE 69955136061 No Longer Active Ramiro Rizzo WATERSHED TENDER-C Active GLIPIZIDE XL 5 MG ORAL TABLET EXTENDED RELEASE 24 HOUR 1 tab By Mouth Every Day with first meal GLIPIZIDE 69313828040 No Longer Active Ramiro Rizzo WATERSHED TENDER-C Active NIFEDIPINE ER 90 MG ORAL TABLET EXTENDED RELEASE 24 HOUR 1 by mouth every day NIFEDIPINE 42647176369 No Longer Active Ramiro Rizzo WATERSHED TENDER-C Active AMOXICILLIN 500 MG ORAL CAPSULE 1 by mouth Twice a Day for 14 days AMOXICILLIN 25241930191 No Longer Active Ramiro Rizzo WATERSHED TENDER-C Active BIAXIN 500 MG ORAL TABLET 1 by mouth twice a day for 14 days CLARITHROMYCIN 74463428562 No Longer Active Ramiro Rizzo WATERSHED TENDER-C Active GLIMEPIRIDE 2 MG ORAL TABLET 1 By Mouth Twice a Day with largest meals GLIMEPIRIDE 13542114649 No Longer Active Ramiro Rizzo WATERSHED TENDER-C Active LIPITOR 40 MG ORAL TABLET 1 by mouth every pm ATORVASTATIN CALCIUM 97271270784 No Longer Active Ramiro Rizzo WATERSHED TENDER-C Active LOVASTATIN 20 MG ORAL TABLET 1 by mouth every night LOVASTATIN 46172477007 No Longer Active Ramiro Hare RonnaTimIsidro WATERSHED TENDER-C Active OMEPRAZOLE 20 MG ORAL CAPSULE DELAYED RELEASE 1 by mouth Twice a Day for 14 days OMEPRAZOLE 30520444155 No Longer Active Ramiro Payam FriendTimIsidro WATERSHED TENDER-C Active JANUMET 50-1000 MG ORAL TABLET 1 tab By Mouth Twice a Day SITAGLIPTIN-METFORMIN HCL 07485950801 No Longer Active Ramiro Payam Rizzo WATERSHED TENDER-C Active LISINOPRIL 20 MG ORAL TABLET 1 by mouth every day in the evening LISINOPRIL 42934549019 No Longer Active Ramiro Payam FriendTimIsidro WATERSHED TENDER-C Active LISINOPRIL-HYDROCHLOROTHIAZIDE 20-25 MG ORAL TABLET 1 by mouth daily in the morning LISINOPRIL-HYDROCHLOROTHIAZIDE 41455270504 No Longer Active Ramiro Payam Rizzo WATERSHED TENDER-C Active METFORMIN HCL 1000 MG ORAL TABLET 1 by mouth twice a day METFORMIN HCL 83545290076 No Longer Active Ramiro Payam FriendTimIsidro WATERSHED TENDER-C Active Advance Directives Directive Description Start Date DISCUSSED - NO DECISION MADE Immunizations Vaccine Administration Date Value Standard Description influenza immunization (Flu Vax) has been administered given influenza virus vaccine, unspecified formulation pneumococcal immunization administered given pneumococcal polysaccharide vaccine, 23 valent PEDIATRIC PNEUMOCOCCAL VACCINE ([id number]) #1 given pneumococcal conjugate vaccine, 13 valent Tetanus toxoid, reduced diphtheria toxoid and acellular Pertussis vaccine, absorbed (TdaP) given given tetanus toxoid, reduced diphtheria toxoid, and acellular pertussis vaccine, adsorbed Vital Signs Date Name Value Unit Range Description blood pressure, diastolic 91 mm[Hg] BP dumont blood pressure, systolic 202 mm[Hg] BP sys height E&M 69 [in_us] Bdy height pulse rate E&M 59 /min Heart rate temperature E&M 97.7 [degF] Body temperature weight E&M 212 [lb_av] Weight Measured blood pressure, diastolic, second observation 98 mm[Hg] BP dumont blood pressure, diastolic, third observation 98 mm[Hg] BP dumont blood pressure, diastolic 98 mm[Hg] BP dumont blood pressure, systolic, second observation 223 mm[Hg] BP sys blood pressure, systolic, third observation 182 mm[Hg] BP sys blood pressure, systolic 182 mm[Hg] BP sys height E&M 69 [in_us] Bdy height pulse rate E&M 59 /min Heart rate respiratory rate E&M 12 /min Resp rate temperature E&M 97.7 [degF] Body temperature weight E&M 212 [lb_av] Weight Measured blood pressure, diastolic 89 mm[Hg] BP dumont [...] temperature weight E&M 215 [lb_av] Weight Measured Diagnostic Results Date Name [...] /hpf {Cells}/[HPF] 0 - 5 Lab Report: Comp. Metabolic Panel (14), Lipid Panel, Cardiovascular Repo ... - Chemistry very low density lipoproteins 27 mg/dL 5-40 Lab Report: CBC With Differential/Platelet, Comp. Metabolic Panel (14), ... - Chemistry testosterone, total 776 ng/dL [phone] Lab Report: PSA, Serum (Serial Monitor), Hep B Surface Ab, Vitamin D, 25 ... - Chemistry hepatitis B surface antigen Negative Negative Lab Report: CBC With Differential/Platelet, Comp. Metabolic Panel (14), ... - Urinalysis epithelial cells, urine 0-10 /[LPF] 0 - 10 Lab Report: Comp. Metabolic Panel (14), Lipid Panel, Cardiovascular Repo ... - Chemistry chloride, serum 103 mmol/L 96-106 urea nitrogen, blood 22 mg/dL 6-24 Lab Report: CBC With Differential/Platelet, [...] Urinalysis bilirubin, urine Negative Negative Lab Report: Comp. Metabolic Panel (14), Lipid Panel, Cardiovascular Repo ... - Chemistry LDL cholesterol, serum 107 mg/dL 0-99 urea nitrogen/creatinine ratio, serum 15 9-20 Lab Report: CBC With Differential/Platelet, Comp. Metabolic Panel (14), ... - Hematology mean corpuscular volume, RBC 98 fL 79-97 Lab Report: Comp. Metabolic Panel (14), Lipid Panel, Cardiovascular Repo ... - Chemistry HDL cholesterol, serum 82 mg/dL >39 Lab Report: CBC With Differential/Platelet, Comp. Metabolic Panel (14), ... - Hematology monocytes as percent of blood leukocytes 10 % Not Estab. Lab Report: Comp. Metabolic Panel (14), Lipid Panel, Cardiovascular Repo ... - Chemistry albumin/globulin ratio, serum 0.8 1.2-2.2 creatinine, serum 1.51 mg/dL 0.76-1.27 cholesterol, serum 216 mg/dL 100-199 Lab Report: Albumin/Creatinine Ratio,Urine - Chemistry creatinine, random, urine 86.4 mg/dL Not Estab. Lab Report: Comp. Metabolic Panel (14), Lipid Panel, Cardiovascular Repo ... - Chemistry bilirubin, serum, total 0.4 mg/dL 0.0-1.2 Lab Report: CBC With Differential/Platelet, Comp. Metabolic Panel (14), ... - Hematology Eosinophil Absolute Count 0.3 X10E3/UL 10*3/uL 0.0-0.4 Lab Report: CBC With Differential/Platelet, Comp. Metabolic Panel (14), ... - Lab chlamydia DNA probe Negative Negative Lab Report: CBC With Differential/Platelet, Comp. Metabolic Panel (14), ... - Urinalysis appearance, urine Clear Clear Lab Report: Comp. Metabolic Panel (14), Lipid Panel, Cardiovascular Repo ... - Chemistry aspartate aminotransferase (SGOT), serum 72 U/L 0-40 Lab Report: CBC With Differential/Platelet, [...] pH, urine, semiquantitative 5.5 5.0-7.5 Lab Report: Comp. Metabolic Panel (14), Lipid Panel, Cardiovascular Repo ... - Chemistry potassium, serum 4.5 mmol/L 3.5-5.2 albumin, serum 3.0 g/dL 3.5-5.5 Lab Report: CBC With Differential/Platelet, Comp. Metabolic Panel (14), ... - Chemistry immature granulocytes, percentage of total cells, blood 0 % Not Estab. Lab Report: CBC With Differential/Platelet, Comp. Metabolic Panel (14), ... - Hematology lymphocyte count, blood, automated 2.0 X10E3/UL 10*3/mm3 0.7-3.1 hematocrit, blood 38.0 % 37.5-51.0 Lab Report: CBC With Differential/Platelet, Comp. Metabolic Panel (14), ... - Microbiology Neisseria gonorrhoeae DNA probe Negative Negative Lab Report: Comp. Metabolic Panel (14), Lipid Panel, Cardiovascular Repo ... - Chemistry sodium, serum 140 mmol/L 134-144 Lab Report: CBC With Differential/Platelet, [...] Microbiology microscopic exam See below: Lab Report: Comp. Metabolic Panel (14), Lipid Panel, Cardiovascular Repo ... - Chemistry carbon dioxide, venous blood 21 mmol/L 20-29 Lab Report: PSA, Serum (Serial Monitor), Hep B Surface Ab, Vitamin D, 25 ... - Serology hepatitis B core antibody, total Negative Negative Lab Report: CBC With Differential/Platelet, Comp. Metabolic Panel (14), ... - Chemistry nitrate, urine Negative Negative Lab Report: Comp. Metabolic Panel (14), Lipid Panel, Cardiovascular Repo ... - Chemistry triglyceride, serum, fasting 137 mg/dL 0-149 calcium, serum 8.8 mg/dL 8.7-10.2 Lab Report: Albumin/Creatinine Ratio,Urine - Chemistry microalbumin/creatinine ratio, urine 3742.4 MG/G CREAT ug/mg 0.0-30.0 Lab Report: Comp. Metabolic Panel (14), Lipid Panel, Cardiovascular Repo ... - Chemistry alanine aminotransferase (SGPT), serum 62 U/L 0-44 Lab Report: CBC With Differential/Platelet, [...] microscopy None seen None seen/Few Lab Report: Comp. Metabolic Panel (14), Lipid Panel, Cardiovascular Repo ... - Chemistry protein, total, serum 7.0 g/dL 6.0-8.5 alkaline phosphatase, serum 378 U/L 39-117 Lab Report: CBC With Differential/Platelet, Comp. Metabolic Panel (14), ... - Hematology hemoglobin, blood 12.7 g/dL 13.0-17.7 lymphocytes as percent of blood leukocytes 24 % Not Estab. Lab Report: Comp. Metabolic Panel (14), Lipid Panel, Cardiovascular Repo ... - Chemistry hemoglobin A1C, blood, as % of total hemoglobin 9.5 % 4.8-5.6 Lab Report: CBC With Differential/Platelet, Comp. Metabolic Panel (14), ... - Urinalysis glucose, urine, semiquantitative 3+ Negative Lab Report: Comp. Metabolic Panel (14), Lipid Panel, Cardiovascular Repo ... - Genetics/fertility eGFR if 60 mL/min/1.73m2 >59 Lab Report: CBC With Differential/Platelet, Comp. Metabolic Panel (14), ... - Hematology basophil count, absolute 0.0 x10E3/uL 0.0-0.2 Lab Report: Comp. Metabolic Panel (14), Lipid Panel, Cardiovascular Repo ... - Chemistry globulin, serum 4.0 1.5-4.5 Estimated Glomerular Filtration Rate (calc) 52 mL/min/1.73m2 >59 Lab Report: PSA, Serum (Serial Monitor), Hep B Surface Ab, Vitamin D, 25 ... - Chemistry vitamin D 25-hydroxy, serum 11.9 ng/mL 30.0-100.0 Lab Report: CBC With Differential/Platelet, Comp. Metabolic Panel (14), ... - Basic Occult Blood, urine Negative Negative Lab Report: CBC With Differential/Platelet, Comp. Metabolic Panel (14), ... - Chemistry testosterone, serum, free 5.7 pg/mL 7.2-24.0 Lab Report: PSA, Serum (Serial Monitor), Hep B Surface Ab, Vitamin D, 25 ... - Serology hepatitis B surface antibody Non Reactive Lab Report: Albumin/Creatinine Ratio,Urine - Urinalysis microalbumin/total urine volume 3233.4 mg/L Not Estab. Lab Report: CBC With Differential/Platelet, Comp. Metabolic Panel (14), ... - Hematology eosinophils as percent of blood leukocytes 4 % Not Estab. Lab Report: Comp. Metabolic Panel (14), Lipid Panel, Cardiovascular Repo ... - Chemistry blood glucose, random 163 mg/dL 65-99 Lab Report: CBC With Differential/Platelet, Comp. Metabolic Panel (14), ... - Urinalysis urobilinogen, urine, semiquantitative (dipstick) 0.2 0.2-1.0 Lab Report: PSA, Serum (Serial Monitor), Hep B Surface Ab, Vitamin D, 25 ... - Chemistry prostate specific antigen 0.7 ng/mL 0.0-4.0 Lab Report: CBC With Differential/Platelet, Comp. Metabolic Panel (14), ... - Chemistry amylase, serum 44 U/L 31-124 Lab Report: CBC With Differential/Platelet, Comp. Metabolic Panel (14), ... - Hematology monocyte count, blood, automated 0.9 X10E3/UL 10*3/uL 0.1-0.9 platelet count 291 X10E3/UL 10*3/mm3 150-379 Lab Report: CBC With Differential/Platelet, Comp. Metabolic Panel (14), ... - Urinalysis ketones, urine, by test strip Negative Negative Encounters Date Encounter Provider Code Facility 14:43:53 CDT Ofc Vst, Est Level IV Jessica Herbert MD CPT-44809 [facility] 10:16:11 CDT Ofc Vst, Est Level IV Paula Norman [facility] CPT-39883 [facility] 05:47:04 RADON INSPECTOR Ofc Vst, Est Level IV Paula Norman [facility] CPT-23516 [facility] 09:22:37 RADON INSPECTOR Est Patient Detailed - 91699 Jennifer Malin MD CPT-63959 [facility] 13:43:17 CDT Est Patient Detailed - [id number] Ramiro POLK-C CPT-69263 [facility] Adult [facility] 10:46:18 CDT Ofc Vst, Est Level IV Jessica Herbert MD CPT-92995 [facility] 12:28:41 CDT Ofc Vst, Est Level IV Jessica Herbert MD CPT-09372 [facility] 16:41:49 RADON INSPECTOR Est Patient Detailed - 41506 Ramiro Friend'Isidro [employer]SHED TENDER-C CPT-27369 [facility] 10:27:20 CDT Est Patient Detailed - 87215 Ramiro Hare O'Isidro [employer] TENDER-C CPT-61639 [facility] 09:14:47 RADON INSPECTOR Est Patient Detailed - 30431 Ramiro Hare O'Isidro W[employer]SHED TENDER-C CPT-17411 [facility] 09:10:51 CDT Est Patient Exp Problem - 77633 Ramiro Hare O'Isidro [employer]SH[employer] TENDER-C CPT-52227 [facility] 09:13:46 CDT Est Patient Exp Problem - 60748 Ramiro Hare O'Isidro WATERSHED TENDER-C CPT-83429 [facility] Adult Medicine 09:32:15 CDT Est Patient Exp Problem - 10556 Ramiro Hare O'Isidro WATERSHED TENDER-C CPT-99839 [facility] Adult Medicine 15:37:18 RADON INSPECTOR Est Patient Problem Focus - 73456 Ramiro Hare O'Isidro WATERSHED TENDER-C CPT-42644 [facility] Adult Medicine 10:58:05 RADON INSPECTOR Est Patient Exp Problem - 09011 Ramiro Hare O'Isidro WATERSHED TENDER-C CPT-53873 [facility] Adult Medicine 17:14:40 RADON INSPECTOR New Patient Comprehensive - [id number] Ramiro Friend'Isidro WATERSHED TENDER-C CPT-96846 [facility] Adult Medicine Procedures Code Procedure Name Date Entry Date Standard Description CPT-66818 INFLUENZA VACCINE QUADRIVALENT 3 YRS PLUS IM 09:22:50 RADON INSPECTOR CPT-15636 Admin of Vaccine - Injection - 1 09:22:49 RADON INSPECTOR CPT-62066 Glucose Stick 10:46:18 CDT CPT-79640 Pneumovax Vaccine PPSV23 17:00:21 CDT CPT-77533 Admin of Vaccine - Injection - 1 17:00:21 CDT CPT-11139 Est Patient Well Exam (40 - 64 Yrs) - 60048 17:00:10 CDT CPT-37220 Prevnar (PCV13) IM 10:27:23 CDT CPT-59393 TDAP 10:27:23 CDT CPT-46528 Admin of Vaccine - Injection - Each Add'l 10:27:23 CDT CPT-21651 Admin of Vaccine - Injection - 1 10:27:23 CDT CPT-12000 Glucose Stick 10:58:08 RADON INSPECTOR CPT-91182 Glucose Stick 17:14:43 RADON INSPECTOR CPT-32823 Venipuncture 17:14:43 RADON INSPECTOR CPT-26188 Handling of specimen for transfer 17:14:42 RADON INSPECTOR
--- NOTE | 2019-08-26 20:51 | Diagnostic Imaging Report ---
TOES 2 + VIEWS LT - HOPD - 3 views HISTORY: Pain COMPARISON: None available. FINDINGS: Bones: No acute displaced fracture. Osseous alignment is within normal limits. Joints: No malalignment. Soft tissues: Vascular calcifications. IMPRESSION: No acute radiographic abnormality. Signed by: Dr. Rishi Padilla MD on 08/26/2019 8:48 PM
== END 2019-08-26 21:27 | disposition home or self-care (01) ==
LOC: FSED 19:35
DX: T25.132A Burn of first degree of left toe(s) (nail), initial encounter (principal); E11.22 Type 2 diabetes mellitus with diabetic chronic kidney disease; I12.9 Hypertensive chronic kidney disease with stage 1 through stage 4 chronic kidney disease, or unspecified chronic kidney disease; N18.9 Chronic kidney disease, unspecified; Z79.4 Long term (current) use of insulin; X08.8XXA Exposure to other specified smoke, fire and flames, initial encounter; Y93.89 Activity, other specified; Y92.69 Other specified industrial and construction area as the place of occurrence of the external cause
CPT/HCPCS: 80048; 85025; 99283

== ENCOUNTER 2019-10-07 22:43 | Inpatient (IN) | payer SELFPAY ==
[~2019-10-07] VITALS: Ht 172.7 cm; Wt 91.2 kg
--- OUTSIDE RECORDS SUMMARY | 2019-10-07 22:47 | XMS REPORT ---
Author Author Admin, [place] Organization Unknown Address Unknown Phone Unavailable PROBLEMS Condition Status Date Provider Notes Burn, 10-19% BSA, L great toe active Paula Canalesd Rash and other nonspecific skin eruption completed - Paula Castropard Allergic rhinitis, seasonal completed - Paula Castropard Liver function abnormality active Jennifer Malin Medication, long-term use active Paula Norman Obesity active Jennifer Malin Tobacco use active Jennifer Malin Microalbuminuria active Ramiro Rizzo BMI 31.0-31.9 completed - Jennifer Malin Prostate Cancer, Screening completed - Ramiro Rizzo Colorectal screening completed - Ramiro Rizzo Peripheral vascular insufficiency active Ramiro Rizzo Preventive health care completed - Ramiro Rizzo BMI 29.0-29.9 completed - Ramiro Rizzo Immunization update completed - Ramiro Rizzo Candidal balanitis completed - Ramiro Rizzo Bronchitis completed - Ramiro Rizzo BMI 32.0-32.9 completed - Ramiro Rizzo Vaccination Against Influenza completed - Ramiro Rizzo at outside clinic Vitamin D deficiency active Ramiro Rizzo Helicobacter pylori gastrointestinal tract infection completed - Ramiro Rizzo Hyperlipidemia active Ramiro Rizzo Diabetic peripheral neuropathy active Ramiro Rizzo Erectile dysfunction active Ramiro Rizoz T level appropriate Hx of syncope active Ramiro Rizzo Abdominal pain, left upper quadrant completed - Ramiro Rizzo Diabetes mellitus, type II active Paula Castropard Hypertension active Ramiro Rizzo Overweight completed - Jennifer Malin ENCOUNTERS Date Type Provider Location Encounter Diagnosis - Ambulatory Encounter Paula Norman [facility] Adult Medicine UNK - Ambulatory Encounter Paula Norman [facility] Adult Medicine UNK - Ambulatory Encounter Paula Norman Radha [place] Юлия Bennett [facility] Adult Medicine Diabetes mellitus, type IIMedication, long-term useAllergic rhinitis, seasonalRash and other nonspecific skin eruptionBurn, 10-19% BSA, L great toe - Ambulatory Encounter Co Юлия Bennett [facility] Adult Medicine UNK - Ambulatory Encounter Paula Norman [facility] UNK - Ambulatory Encounter Jessica Herbert [facility] Adult Medicine UNK - Ambulatory Encounter Paula Norman LM Adult Medicine UNK - Ambulatory Encounter Beth Greene [facility] Adult Medicine UNK - Ambulatory Encounter Beth Greene Paula Norman [facility] Adult Medicine UNK - Ambulatory Encounter Paula Norman [employer] Adult Medicine UNK - Ambulatory Encounter Paula Norman [employer] Adult Medicine UNK - Ambulatory Encounter Jessica Herbert [facility] Adult Medicine UNK - Ambulatory Encounter Jessica Archuleta [facility] Adult Medicine UNK - Ambulatory Encounter Paula Norman [facility] Adult Medicine UNK - Ambulatory Encounter Paula Norman [facility] Adult Medicine UNK - Ambulatory Encounter Paula Norman John Mejia [facility] Adult Medicine Allergic rhinitis, seasonalRash and other nonspecific skin eruption - Ambulatory Encounter Paula Norman Steve Espinosa [facility] Adult Medicine UNK - Ambulatory Encounter Paula Norman [employer] Adult Medicine UNK - Ambulatory Encounter Paula Norman [employer] Adult Medicine UNK - Ambulatory Encounter Jessica Herbert [employer] Adult Medicine UNK - Ambulatory Encounter Anh Samayoa [facility] Adult Medicine UNK - Ambulatory Encounter Linda Contreras [facility] UNK - Ambulatory Encounter Steve Archuleta [facility] Adult Medicine UNK - Ambulatory Encounter Ramiro Bishop MedAdherence [facility] Adult Medicine UNK - Ambulatory Encounter Paula Norman [facility] Adult Medicine UNK - Ambulatory Encounter Paula Norman Cathy Archuleta [facility] Adult Medicine UNK - Ambulatory Encounter Jessica Herbert [facility] Adult Medicine UNK - Ambulatory Encounter Angle Avila [facility] Services UNK - Ambulatory Encounter [place] [facility] Adult Medicine UNK - Ambulatory Encounter Anh Samayoa LM Adult Medicine UNK - Ambulatory Encounter Ramiro Rizzo [employer] [facility] Adult Medicine UNK - Ambulatory Encounter Jose Armando Gonzalez [facility] Adult Medicine UNK - Ambulatory Encounter Jennifer Malin [employer] [facility] Adult Medicine UNK - Ambulatory Encounter Aamir Tejedao [facility] Adult Medicine UNK - Ambulatory Encounter Fax Status [facility] Services UNK - Ambulatory Encounter Fax Status [facility] Services UNK - Ambulatory Encounter Jennifer Manning [facility] Adult Medicine UNK - Ambulatory Encounter Fax Status [facility] Services UNK - Ambulatory Encounter Fax Status [facility] Services UNK - Ambulatory Encounter [facility] - Ambulatory Encounter Jennifer Manning [facility] Adult Medicine UNK - Ambulatory Encounter Jennifer Malin [facility] Adult Medicine UNK - Ambulatory Encounter Jennifer Malin [facility] Adult Medicine UNK - Ambulatory Encounter Jennifer Strickland-Carlos Aamir Manning [facility] Adult Medicine OverweightBMI 31.0-31.9Tobacco useObesityMedication, long-term useLiver function abnormality - Ambulatory Encounter Lilo Amaro LM Adult Medicine UNK - Ambulatory Encounter Steve Archuleta [facility] Adult Medicine UNK - Ambulatory Encounter Ramiro Hare ONicky Hare O'Isidro Kamara Yao [facility] Adult Medicine Microalbuminuria - Ambulatory Encounter [facility] - Ambulatory Encounter Ramiro Friend'Isidro Friend'Isidro [facility] Adult Medicine UNK - Ambulatory Encounter Ramiro Friend'Isidro Hare O'Isidro Zachary Eileen [facility] Adult Medicine HyperlipidemiaBMI 29.0- 29.9BMI 31.0-31.9 - Ambulatory Encounter Rinal Herbert [facility] LM Adult Medicine UNK - Ambulatory Encounter Ana Laura Escobedo [facility] Vision UNK - Ambulatory Encounter Alice Malagon [facility] UNK - Ambulatory Encounter Janice Villalpando [facility] Coding Compliance Specialist UNK - Ambulatory Encounter Rinal Herbert [place] Anisa [facility] Adult Medicine UNK - Ambulatory Encounter Rinal Herbert [facility] Adult Medicine UNK - Ambulatory Encounter Rinal Herbert Aleja Geremias Gomez Anisa [facility] Adult Medicine UNK - Ambulatory Encounter Rinal Herbert [facility] Adult Medicine UNK - Ambulatory Encounter Rinal Herbert [facility] Adult Medicine UNK - Ambulatory Encounter Rinal Herbert [facility] Adult Medicine UNK - Ambulatory Encounter Rinal Herbert [facility] Adult Medicine UNK - Ambulatory Encounter Rinal Herbert [facility] Adult Medicine UNK - Ambulatory Encounter Steve Archuleta [facility] Adult Medicine UNK - Ambulatory Encounter Jessica Herbert [facility] Adult Medicine UNK - Ambulatory Encounter Jessica Keon Escobedo [facility] Adult Medicine UNK - Ambulatory Encounter Beth Jc [facility] Adult Medicine UNK - Ambulatory Encounter Ramiro Campos Jc [facility] Adult Medicine UNK - Ambulatory Encounter Ramiro Rizzo [facility] Adult Medicine UNK - Ambulatory [facility] Adult Medicine UNK - Ambulatory Encounter Ramiro Rizzo [facility] Adult Medicine UNK - Ambulatory Encounter Ramiro Rizzo [facility] Adult Medicine UNK - Ambulatory Encounter Ramiro Rizzo [facility] Adult Medicine UNK - Ambulatory Encounter Ramiro Sharma [facility] Adult Medicine Immunization updatePreventive health careColorectal screeningProstate Cancer, Screening - Ambulatory Encounter Ramiro Guerra [facility] Adult Medicine UNK - Ambulatory Encounter Ramiro Rizzo [facility] UNK - Ambulatory Encounter Ramiro Rizzo [facility] Adult Medicine UNK - Ambulatory Encounter Ramiro Rizzo [facility] Adult Medicine UNK - Ambulatory Encounter Ramiro Rizzo [employer] [facility] Adult Medicine UNK - Ambulatory Encounter Fax Status [facility] UNK - Ambulatory Encounter Fax Status [facility] UNK - Ambulatory Encounter Fax Status [facility] UNK - Ambulatory Encounter Ramiro Friend'Isidro [facility] Adult Medicine UNK - Ambulatory Encounter Ramiro Livingston [facility] Adult Medicine BMI 32.0-32.9Candidal balanitisBMI 29.0-29.9Preventive health carePeripheral vascular insufficiencyColorectal screeningProstate Cancer, Screening - Ambulatory Encounter Ramiro JacobsenLogic [facility] Adult Medicine UNK - Ambulatory Encounter Ramiro Rizzo [employer] [facility] Adult Medicine UNK - Ambulatory Encounter Lacey Hall [facility] Dental UNK - Ambulatory Encounter Ramiro Friend'Isidro Acuña [facility] UNK - Ambulatory Encounter Ramiro Rizzo [facility] Adult Medicine UNK - Ambulatory Encounter Ramiro Friend'Isidro Arellano [facility] Adult Medicine BronchitisCandidal balanitisImmunization update - Ambulatory Encounter Mag Son [facility] Adult Medicine UNK - Ambulatory Encounter Ramiro Friend'Isidro Guerra [facility] Adult Medicine UNK - Ambulatory Encounter Ramiro Friend'Isidro Friend'Isidro LM Adult Medicine UNK - Ambulatory Encounter Ramiro Friend'Isidro [facility] LM Adult Medicine UNK - Ambulatory Encounter Ramiro Friend'Isidro Hare O'Isidro LM Adult Medicine UNK - Ambulatory Encounter Ramiro Friend'Isidro Hare O'Isidro Steve Geremias [facility] Adult Medicine BMI 32.0-32.9Bronchitis - Ambulatory Encounter Ramiro Friend'Isidro Friend'Isidro LM Adult Medicine UNK - Ambulatory Encounter Ramiro Friend'Isidro Friend'Isidro LM Adult Medicine UNK - Ambulatory Encounter Ramiro Friend'Isidro Friend'Isidro Son [facility] Adult Medicine Helicobacter pylori gastrointestinal tract infectionVaccination Against Influenza - Ambulatory Encounter Florenciodenisse Givens [facility] Adult Medicine UNK - Ambulatory Encounter Anna Connell LM Adult Medicine UNK - Ambulatory Encounter Anna Connell [facility] LM Adult Medicine UNK - Ambulatory Encounter Ramiro Friend'Isidro Friend'Isidro [facility] Adult Medicine UNK - Ambulatory Encounter Av Tinajero LM Adult Medicine UNK - Ambulatory Encounter Ramiro Friend'Isidro Friend'Isidro LM Adult Medicine UNK - Ambulatory Encounter Ramiro Friend'Iisdro Friend'Isidro Arellano [facility] Adult Medicine UNK - Ambulatory Encounter Ramiro Friend'Isidro Friend'Isidro [facility] LM Adult Medicine UNK - Ambulatory Encounter Ramiro Friend'Isidro Friend'Isidro LM Adult Medicine UNK - Ambulatory Encounter Ramiro Friend'Isidro Hare O'[facility]idro [facility] Adult Medicine UNK - Ambulatory Encounter Ramiro Friend'Isdiro Hare O'Isidrojay Sharma Eileen LM Adult Medicine Abdominal pain, left upper quadrant - Ambulatory Encounter Ramiro Hare O'Isidro Hare O'Isidro [facility] Adult Medicine UNK - Ambulatory Encounter Ramiro Hare O'Isidro Hare O'Isidro [facility] Adult Medicine UNK - Ambulatory Encounter Av Tinajero [facility] Adult Medicine UNK - Ambulatory Encounter Ramiro Friend'Isidro Hare O'Isidro LM Adult Medicine UNK - Ambulatory Encounter Ramiro Friend'Isidro Hare O'Isidro Sharma Eileen [facility] Adult Medicine UNK - Ambulatory Encounter Ramiro Hare O'Isidro Hare O'Isidro [facility] Adult Medicine UNK - Ambulatory Encounter Ramiro Hare O'Isidro Hare O'Isidro [facility] Adult Medicine UNK - Ambulatory Encounter Ramiro Friend'Isidro Hare O'Isidro [facility] Adult Medicine UNK - Ambulatory Encounter Ramiro Friend'Isidro Hare O'Isidro [facility] Adult Medicine UNK - Ambulatory Encounter Ramiro Hare O'Isidro Hare O'Isidro [facility] Adult Medicine UNK - Ambulatory Encounter Ramiro Friend'Isidro Hare O'Isidro Sharma Eileen [facility] Adult Medicine UNK - Ambulatory Encounter Ramiro Friend'Isidro Hare O'Isidro [facility] LM Adult Medicine UNK - Ambulatory Encounter Ramiro Friend'Isidro Hare O'Isidro [facility] Adult Medicine Diabetes mellitus, type IIErectile dysfunctionHyperlipidemiaHelicobacter pylori gastrointestinal tract infectionVitamin D deficiency - Ambulatory Encounter Ramiro Rizzo [employer] Adult Medicine UNK - Ambulatory Encounter Yuri Reed [facility] Adult Medicine UNK - Ambulatory Encounter Yuri Reed [facility] Adult Medicine UNK - Ambulatory Encounter Ramiro Rizzo [facility] Adult Medicine UNK - Ambulatory Encounter Ramiro Rizzo Zachary Arellano [facility] Adult Medicine OverweightHypertensionDiabetes mellitus, type IIAbdominal pain, left upper quadrantHx of syncopeErectile dysfunctionDiabetic peripheral neuropathy - Ambulatory Encounter [facility] Encounter Av Tinajero [facility] Adult Medicine UNK - Ambulatory Encounter Av Tinajero [facility] Adult Medicine UNK VITAL SIGNS No Information Available ALLERGIES Allergy Name Onset Date Reaction Criticality Status NIFEDIPINE Facial swelling High Criticality active CHLORTHALIDONE Facial swelling High Criticality active REASON FOR REFERRAL Start Date - End Date Service - CT Scan RESULTS Date Observation Value Provider Reference Range Interpretation Location blood glucose, random 198 mg/dL Juan Luis Bennett hemoglobin A1C, blood, as % of total hemoglobin 9.5 % [facility] 4.8-5.6 High " LDL cholesterol, serum 107 mg/dL [facility] 0-99 High " very low density lipoproteins 27 mg/dL [facility] 5-40 " HDL cholesterol, serum 82 mg/dL [facility] >39 " triglyceride, serum, fasting 137 mg/dL [facility] 0-149 " cholesterol, serum 216 mg/dL [facility] 100-199 High " alanine aminotransferase (SGPT), serum 62 1/L [facility] 0-44 High " aspartate aminotransferase (SGOT), serum 72 1/L [facility] 0-40 High " alkaline phosphatase, serum 378 1/L [facility] 39-117 High " bilirubin, serum, total 0.4 mg/dL [facility] 0.0-1.2 " albumin/globulin ratio, serum 0.8 [facility] 1.2-2.2 Low " globulin, serum 4.0 [facility] 1.5-4.5 " albumin, serum 3.0 g/dL [facility] 3.5-5.5 Low " protein, total, serum 7.0 g/dL [facility] 6.0-8.5 " calcium, serum 8.8 mg/dL [facility] 8.7-10.2 " carbon dioxide, venous blood 21 mmol/L [facility] 20-29 " chloride, serum 103 mmol/L [facility] 96-106 " potassium, serum 4.5 mmol/L [facility] 3.5-5.2 " sodium, serum 140 mmol/L [facility] 134-144 " urea nitrogen/creatinine ratio, serum 15 [facility] 9-20 " eGFR if 60 mL/min/((173/100).m2) [facility] >59 " Estimated Glomerular Filtration Rate (calc) 52 mL/min/((173/100).m2) [facility] >59 Low " creatinine, serum 1.51 mg/dL [facility] 0.76-1.27 High " urea nitrogen, blood 22 mg/dL [facility] 6-24 " blood glucose, random 163 mg/dL [facility] 65-99 High " hepatitis B core antibody, total Negative [facility] Negative " hepatitis B surface antigen Negative [facility] Negative " vitamin D 25-hydroxy, serum 11.9 ng/mL [facility] 30.0-100.0 Low " hepatitis B surface antibody Non Reactive [facility] " prostate specific antigen 0.7 ng/mL [facility] 0.0-4.0 microalbumin/creatinine ratio, urine 3742.4 MG/G CREAT [facility] 0.0-30.0 High " microalbumin/total urine volume 3233.4 mg/L [facility] Not Estab. " creatinine, random, urine 86.4 mg/dL [facility] Not Estab. blood glucose, random 292 mg/dL Cathy Quintanilla thyroid stimulating hormone, serum 3.010 u[iU]/mL [facility] 0.450-4.500 " hemoglobin A1C, blood, as % of total hemoglobin 9.8 % [facility] 4.8-5.6 High " microalbumin/creatinine ratio, urine 4276.5 MG/G CREAT [facility] 0.0-30.0 High " microalbumin/total urine volume 3960.0 mg/L [facility] Not Estab. " creatinine, random, urine 92.6 mg/dL [facility] Not Estab. " LDL cholesterol, serum 104 mg/dL [facility] 0-99 High " very low density lipoproteins 27 mg/dL [facility] 5-40 " HDL cholesterol, serum 76 mg/dL [facility] >39 " triglyceride, serum, fasting 137 mg/dL [facility] 0-149 " cholesterol, serum 207 mg/dL [facility] 100-199 High " alanine aminotransferase (SGPT), serum 81 1/L [facility] 0-44 High " aspartate aminotransferase (SGOT), serum 62 1/L [facility] 0-40 High " alkaline phosphatase, serum 305 1/L [facility] 39-117 High " bilirubin, serum, total 0.4 mg/dL [facility] 0.0-1.2 " albumin/globulin ratio, serum 1.0 [facility] 1.2-2.2 Low " globulin, serum 3.7 [facility] 1.5-4.5 " albumin, serum 3.6 g/dL [facility] 3.5-5.5 " protein, total, serum 7.3 g/dL [facility] 6.0-8.5 " calcium, serum 9.1 mg/dL [facility] 8.7-10.2 " carbon dioxide, venous blood 22 mmol/L [facility] 20-29 " chloride, serum 100 mmol/L [facility] 96-106 " potassium, serum 4.8 mmol/L [facility] 3.5-5.2 " sodium, serum 138 mmol/L [facility] 134-144 " urea nitrogen/creatinine ratio, serum 14 [facility] 9-20 " eGFR if 99 mL/min/((173/100).m2) [facility] >59 " Estimated Glomerular Filtration Rate (calc) 86 mL/min/((173/100).m2) [facility] >59 " creatinine, serum 1.00 mg/dL [facility] 0.76-1.27 " urea nitrogen, blood 14 mg/dL [facility] 6-24 " blood glucose, random 241 mg/dL [facility] 65-99 High " immature granulocytes, percentage of total cells, blood 0 % [facility] Not Estab. " basophil count, absolute 0.0 x10E3/uL [facility] 0.0-0.2 " Eosinophil Absolute Count 0.3 X10E3/UL [facility] 0.0-0.4 " monocyte count, blood, automated 0.9 X10E3/UL [facility] 0.1-0.9 " lymphocyte count, blood, automated 2.0 X10E3/UL [facility] 0.7-3.1 " Absolute Neutrophils 5.0 X10E3/UL [facility] 1.4-7.0 " basophils as percent of blood leukocytes 0 % [facility] Not Estab. " eosinophils as percent of blood leukocytes 4 % [facility] Not Estab. " monocytes as percent of blood leukocytes 10 % [facility] Not Estab. " lymphocytes as percent of blood leukocytes 24 % [facility] Not Estab. " neutrophils as percent of blood leukocytes 62 % [facility] Not Estab. " platelet count 291 X10E3/UL [facility] 150-379 " red blood cell distribution width 14.1 % [facility] 12.3-15.4 " mean corpuscular hemoglobin concentration, RBC 33.4 G/DL [facility] 31.5-35.7 " mean corpuscular hemoglobin, RBC 32.6 pg [facility] 26.6-33.0 " mean corpuscular volume, RBC 98 fL [facility] 79-97 High " hematocrit, blood 38.0 % [facility] 37.5-51.0 " hemoglobin, blood 12.7 g/dL [facility] 13.0-17.7 Low " erythrocyte (RBC) count 3.89 X10E6/UL [facility] 4.14-5.80 Low " leukocyte count, blood 8.2 X10E3/UL [facility] 3.4-10.8 hemoglobin A1C, blood, as % of total hemoglobin 9.6 % [facility] 4.8-5.6 High blood glucose, fasting 138 mg/dL Savanna Lange microalbumin/total urine volume 2318.5 mg/L [facility] Not Estab. " creatinine, random, urine 76.6 mg/dL [facility] Not Estab. hemoglobin A1C, blood, as % of total hemoglobin 9.9 % [facility] 4.8-5.6 High hemoglobin A1C, blood, as % of total hemoglobin 10.3 % [facility] 4.8-5.6 High " LDL cholesterol, serum 127 mg/dL [facility] 0-99 High " very low density lipoproteins 48 mg/dL [facility] 5-40 High " HDL cholesterol, serum 57 mg/dL [facility] >39 " triglyceride, serum, fasting 242 mg/dL [facility] 0-149 High " cholesterol, serum 232 mg/dL [facility] 100-199 High " alanine aminotransferase (SGPT), serum 76 1/L [facility] 0-44 High " aspartate aminotransferase (SGOT), serum 57 1/L [facility] 0-40 High " alkaline phosphatase, serum 216 1/L [facility] 39-117 High " bilirubin, serum, total 0.3 mg/dL [facility] 0.0-1.2 " albumin/globulin ratio, serum 1.0 [facility] 1.2-2.2 Low " globulin, serum 4.0 [facility] 1.5-4.5 " albumin, serum 3.9 g/dL [facility] 3.5-5.5 " protein, total, serum 7.9 g/dL [facility] 6.0-8.5 " calcium, serum 9.5 mg/dL [facility] 8.7-10.2 " carbon dioxide, venous blood 26 mmol/L [facility] 18-29 " chloride, serum 96 mmol/L [facility] 96-106 " potassium, serum 4.3 mmol/L [facility] 3.5-5.2 " sodium, serum 137 mmol/L [facility] 134-144 " urea nitrogen/creatinine ratio, serum 16 [facility] 9-20 " eGFR if 82 mL/min/((173/100).m2) [facility] >59 " Estimated Glomerular Filtration Rate (calc) 71 mL/min/((173/100).m2) [facility] >59 " creatinine, serum 1.17 mg/dL [facility] 0.76-1.27 " urea nitrogen, blood 19 mg/dL [facility] 6-24 " blood glucose, random 203 mg/dL [facility] 65-99 High blood glucose, random 171 mg/dL Zachary Arellano microalbumin/total urine volume 16.6 mg/L [facility] Not Estab. " creatinine, random, urine 78.8 mg/dL [facility] Not Estab. vitamin D 25-hydroxy, serum 25.3 ng/mL [facility] 30.0-100.0 Low " thyroid stimulating hormone, serum 1.880 u[iU]/mL [facility] 0.450-4.500 " hemoglobin A1C, blood, as % of total hemoglobin 14.8 % [facility] 4.8-5.6 High " prostate specific antigen 0.8 ng/mL [facility] 0.0-4.0 " LDL cholesterol, serum 120 mg/dL [facility] 0-99 High " very low density lipoproteins 51 mg/dL [facility] 5-40 High " HDL cholesterol, serum 42 mg/dL [facility] >39 " triglyceride, serum, fasting 253 mg/dL [facility] 0-149 High " cholesterol, serum 213 mg/dL [facility] 100-199 High " alanine aminotransferase (SGPT), serum 44 1/L [facility] 0-44 " aspartate aminotransferase (SGOT), serum 35 1/L [facility] 0-40 " alkaline phosphatase, serum 183 1/L [facility] 39-117 High " bilirubin, serum, total 0.4 mg/dL [facility] 0.0-1.2 " albumin/globulin ratio, serum 1.1 [facility] 1.2-2.2 Low " globulin, serum 3.8 [facility] 1.5-4.5 " albumin, serum 4.0 g/dL [facility] 3.5-5.5 " protein, total, serum 7.8 g/dL [facility] 6.0-8.5 " calcium, serum 10.1 mg/dL [facility] 8.7-10.2 " carbon dioxide, venous blood 24 mmol/L [facility] 18-29 " chloride, serum 96 mmol/L [facility] 96-106 " potassium, serum 5.2 mmol/L [facility] 3.5-5.2 " sodium, serum 134 mmol/L [facility] 134-144 " urea nitrogen/creatinine ratio, serum 17 [facility] 9-20 " eGFR if 75 mL/min/((173/100).m2) [facility] >59 " Estimated Glomerular Filtration Rate (calc) 65 mL/min/((173/100).m2) [facility] >59 " creatinine, serum 1.27 mg/dL [facility] 0.76-1.27 " urea nitrogen, blood 21 mg/dL [facility] 6-24 " blood glucose, random 242 mg/dL [facility] 65-99 High " immature granulocytes, percentage of total cells, blood 0 % [facility] Not Estab. " basophil count, absolute 0.0 x10E3/uL [facility] 0.0-0.2 " Eosinophil Absolute Count 0.2 X10E3/UL [facility] 0.0-0.4 " monocyte count, blood, automated 0.6 X10E3/UL [facility] 0.1-0.9 " lymphocyte count, blood, automated 2.6 X10E3/UL [facility] 0.7-3.1 " Absolute Neutrophils 6.4 X10E3/UL [facility] 1.4-7.0 " basophils as percent of blood leukocytes 0 % [facility] Not Estab. " eosinophils as percent of blood leukocytes 2 % [facility] Not Estab. " monocytes as percent of blood leukocytes 7 % [facility] Not Estab. " lymphocytes as percent of blood leukocytes 26 % [facility] Not Estab. " neutrophils as percent of blood leukocytes 65 % [facility] Not Estab. " platelet count 296 X10E3/UL [facility] 150-379 " red blood cell distribution width 13.4 % [facility] 12.3-15.4 " mean corpuscular hemoglobin concentration, RBC 33.5 G/DL [facility] 31.5-35.7 " mean corpuscular hemoglobin, RBC 32.3 pg [facility] 26.6-33.0 " mean corpuscular volume, RBC 96 fL [facility] 79-97 " hematocrit, blood 42.1 % [facility] 37.5-51.0 " hemoglobin, blood 14.1 g/dL [facility] 12.6-17.7 " erythrocyte (RBC) count 4.37 X10E6/UL [facility] 4.14-5.80 " leukocyte count, blood 9.8 X10E3/UL [facility] 3.4-10.8 blood glucose, random 285 mg/dL Zachary Arellano hemoglobin A1C, blood, as % of total hemoglobin 10.3 % [facility] 4.8-5.6 High " LDL cholesterol, serum 139 mg/dL [facility] 0-99 High " very low density lipoproteins 28 mg/dL [facility] 5-40 " HDL cholesterol, serum 51 mg/dL [facility] >39 " triglyceride, serum, fasting 142 mg/dL [facility] 0-149 " cholesterol, serum 218 mg/dL [facility] 100-199 High " alanine aminotransferase (SGPT), serum 52 1/L [facility] 0-44 High " aspartate aminotransferase (SGOT), serum 50 1/L [facility] 0-40 High " alkaline phosphatase, serum 198 1/L [facility] 39-117 High " bilirubin, serum, total 0.5 mg/dL [facility] 0.0-1.2 " albumin/globulin ratio, serum 0.9 [facility] 1.1-2.5 Low " globulin, serum 4.2 [facility] 1.5-4.5 " albumin, serum 3.9 g/dL [facility] 3.5-5.5 " protein, total, serum 8.1 g/dL [facility] 6.0-8.5 " calcium, serum 9.8 mg/dL [facility] 8.7-10.2 " carbon dioxide, venous blood 24 mmol/L [facility] 18-29 " chloride, serum 100 mmol/L [facility] 96-106 " potassium, serum 5.2 mmol/L [facility] 3.5-5.2 " sodium, serum 139 mmol/L [facility] 134-144 " urea nitrogen/creatinine ratio, serum 17 [facility] 9-20 " eGFR if 105 mL/min/((173/100).m2) [facility] >59 " Estimated Glomerular Filtration Rate (calc) 91 mL/min/((173/100).m2) [facility] >59 " creatinine, serum 0.96 mg/dL [facility] 0.76-1.27 " urea nitrogen, blood 16 mg/dL [facility] 6-24 " blood glucose, random 172 mg/dL [facility] 65-99 High blood glucose, random 252 mg/dL Mag Son thyroid stimulating hormone, serum 2.920 u[iU]/mL [facility] 0.450-4.500 " vitamin D 25-hydroxy, serum 31.4 ng/mL [facility] 30.0-100.0 " hemoglobin A1C, blood, as % of total hemoglobin 8.3 % [facility] 4.8-5.6 High " LDL cholesterol, serum 101 mg/dL [facility] 0-99 High " very low density lipoproteins 40 mg/dL [facility] 5-40 " HDL cholesterol, serum 42 mg/dL [facility] >39 " triglyceride, serum, fasting 201 mg/dL [facility] 0-149 High " cholesterol, serum 183 mg/dL [facility] 100-199 " alanine aminotransferase (SGPT), serum 53 1/L [facility] 0-44 High " aspartate aminotransferase (SGOT), serum 43 1/L [facility] 0-40 High " alkaline phosphatase, serum 138 1/L [facility] 39-117 High " bilirubin, serum, total 0.3 mg/dL [facility] 0.0-1.2 " albumin/globulin ratio, serum 1.0 [facility] 1.1-2.5 Low " globulin, serum 3.8 [facility] 1.5-4.5 " albumin, serum 3.8 g/dL [facility] 3.5-5.5 " protein, total, serum 7.6 g/dL [facility] 6.0-8.5 " calcium, serum 9.6 mg/dL [facility] 8.7-10.2 " carbon dioxide, venous blood 24 mmol/L [facility] 18-29 " chloride, serum 101 mmol/L [facility] 97-106 " potassium, serum 5.1 mmol/L [facility] 3.5-5.2 " sodium, serum 139 mmol/L [facility] 136-144 " urea nitrogen/creatinine ratio, serum 18 [facility] 9-20 " eGFR if 84 mL/min/((173/100).m2) [facility] >59 " Estimated Glomerular Filtration Rate (calc) 73 mL/min/((173/100).m2) [facility] >59 " creatinine, serum 1.16 mg/dL [facility] 0.76-1.27 " urea nitrogen, blood 21 mg/dL [facility] 6-24 " blood glucose, random 214 mg/dL [facility] 65-99 High blood glucose, random 127 mg/dL Zachary Arellano hemoglobin A1C, blood, as % of total hemoglobin 7.8 % [facility] 4.8-5.6 High " LDL cholesterol, serum 106 mg/dL [facility] 0-99 High " very low density lipoproteins 23 mg/dL [facility] 5-40 " HDL cholesterol, serum 43 mg/dL [facility] >39 " triglyceride, serum, fasting 116 mg/dL [facility] 0-149 " cholesterol, serum 172 mg/dL [facility] 100-199 " alanine aminotransferase (SGPT), serum 44 1/L [facility] 0-44 " aspartate aminotransferase (SGOT), serum 38 1/L [facility] 0-40 " alkaline phosphatase, serum 108 1/L [facility] 39-117 " bilirubin, serum, total 0.3 mg/dL [facility] 0.0-1.2 " albumin/globulin ratio, serum 1.1 [facility] 1.1-2.5 " globulin, serum 3.5 [facility] 1.5-4.5 " albumin, serum 3.9 g/dL [facility] 3.5-5.5 " protein, total, serum 7.4 g/dL [facility] 6.0-8.5 " calcium, serum 9.2 mg/dL [facility] 8.7-10.2 " carbon dioxide, venous blood 20 mmol/L [facility] 18-29 " chloride, serum 100 mmol/L [facility] 97-108 " potassium, serum 4.2 mmol/L [facility] 3.5-5.2 " sodium, serum 138 mmol/L [facility] 134-144 " urea nitrogen/creatinine ratio, serum 21 [facility] 9-20 High " eGFR if 103 mL/min/((173/100).m2) [facility] >59 " Estimated Glomerular Filtration Rate (calc) 89 mL/min/((173/100).m2) [facility] >59 " creatinine, serum 0.98 mg/dL [facility] 0.76-1.27 " urea nitrogen, blood 21 mg/dL [facility] 6-24 " blood glucose, random 165 mg/dL [facility] 65-99 High " immature granulocytes, percentage of total cells, blood 0 % [facility] " basophil count, absolute 0.0 x10E3/uL [facility] 0.0-0.2 " Eosinophil Absolute Count 0.5 X10E3/UL [facility] 0.0-0.4 High " monocyte count, blood, automated 0.7 X10E3/UL [facility] 0.1-0.9 " lymphocyte count, blood, automated 2.6 X10E3/UL [facility] 0.7-3.1 " Absolute Neutrophils 5.4 X10E3/UL [facility] 1.4-7.0 " basophils as percent of blood leukocytes 0 % [facility] " eosinophils as percent of blood leukocytes 5 % [facility] " monocytes as percent of blood leukocytes 7 % [facility] " lymphocytes as percent of blood leukocytes 28 % [facility] " neutrophils as percent of blood leukocytes 60 % [facility] " platelet count 290 X10E3/UL [facility] 150-379 " red blood cell distribution width 14.0 % [facility] 12.3-15.4 " mean corpuscular hemoglobin concentration, RBC 33.0 G/DL [facility] 31.5-35.7 " mean corpuscular hemoglobin, RBC 32.4 pg [facility] 26.6-33.0 " mean corpuscular volume, RBC 98 fL [facility] 79-97 High " hematocrit, blood 41.2 % [facility] 37.5-51.0 " hemoglobin, blood 13.6 g/dL [facility] 12.6-17.7 " erythrocyte (RBC) count 4.20 X10E6/UL [facility] 4.14-5.80 " leukocyte count, blood 9.2 X10E3/UL [facility] 3.4-10.8 blood glucose, random 206 mg/dL Zachary Arellano hemoglobin A1C, blood, as % of total hemoglobin 7.8 % [facility] 4.8-5.6 High " LDL cholesterol, serum 95 mg/dL [facility] 0-99 " very low density lipoproteins 38 mg/dL [facility] 5-40 " HDL cholesterol, serum 37 mg/dL [facility] >39 Low " triglyceride, serum, fasting 192 mg/dL [facility] 0-149 High " cholesterol, serum 170 mg/dL [facility] 100-199 " alanine aminotransferase (SGPT), serum 33 1/L [facility] 0-44 " aspartate aminotransferase (SGOT), serum 31 1/L [facility] 0-40 " alkaline phosphatase, serum 124 1/L [facility] 39-117 High " bilirubin, serum, total 0.3 mg/dL [facility] 0.0-1.2 " albumin/globulin ratio, serum 1.0 [facility] 1.1-2.5 Low " globulin, serum 3.8 [facility] 1.5-4.5 " albumin, serum 3.9 g/dL [facility] 3.5-5.5 " protein, total, serum 7.7 g/dL [facility] 6.0-8.5 " calcium, serum 9.5 mg/dL [facility] 8.7-10.2 " carbon dioxide, venous blood 24 mmol/L [facility] 18-29 " chloride, serum 98 mmol/L [facility] 97-108 " potassium, serum 4.8 mmol/L [facility] 3.5-5.2 " sodium, serum 137 mmol/L [facility] 134-144 " urea nitrogen/creatinine ratio, serum 16 [facility] 9-20 " eGFR if 96 mL/min/((173/100).m2) [facility] >59 " Estimated Glomerular Filtration Rate (calc) 83 mL/min/((173/100).m2) [facility] >59 " creatinine, serum 1.04 mg/dL [facility] 0.76-1.27 " urea nitrogen, blood 17 mg/dL [facility] 6-24 " blood glucose, random 280 mg/dL [facility] 65-99 High " immature granulocytes, percentage of total cells, blood 0 % [facility] " basophil count, absolute 0.0 x10E3/uL [facility] 0.0-0.2 " Eosinophil Absolute Count 0.3 X10E3/UL [facility] 0.0-0.4 " monocyte count, blood, automated 0.6 X10E3/UL [facility] 0.1-0.9 " lymphocyte count, blood, automated 1.9 X10E3/UL [facility] 0.7-3.1 " Absolute Neutrophils 5.3 X10E3/UL [facility] 1.4-7.0 " basophils as percent of blood leukocytes 0 % [facility] " eosinophils as percent of blood leukocytes 4 % [facility] " monocytes as percent of blood leukocytes 8 % [facility] " lymphocytes as percent of blood leukocytes 24 % [facility] " neutrophils as percent of blood leukocytes 64 % [facility] " platelet count 411 X10E3/UL [facility] 150-379 High " red blood cell distribution width 13.1 % [facility] 12.3-15.4 " mean corpuscular hemoglobin concentration, RBC 34.0 G/DL [facility] 31.5-35.7 " mean corpuscular hemoglobin, RBC 31.9 pg [facility] 26.6-33.0 " mean corpuscular volume, RBC 94 fL [facility] 79-97 " [facility], [facility].9 [facility] hemoglobin, blood 13.9 g/dL [facility] 12.6-17.7 " erythrocyte (RBC) count 4.36 X10E6/UL [facility] 4.14-5.80 " leukocyte count, blood 8.2 [facility]10E3/UL [facility] 3[facility]4-10[facility] blood glucose, random 120 mg/dL [facility] blood glucose, random 200 mg/dL [facility] Quantiferon Gold TB blood test for tuberculosis screening Negative [facility] Negative " hepatitis B surface antigen Negative [facility] Negative " lipase, serum 38 U/L [facility] " amylase, serum 44 1/L [facility] 31-124 " thyroid stimulating hormone, serum 2.240 u[iU]/mL [facility] 0.450-4.500 " hepatitis C antibody, serum 0.1 [facility] 0.0-0.9 " HIV-CMIA (Chemiluminescent Microparticle Immuno Assay) Non Reactive [facility] Non Reactive " vitamin D 25-hydroxy, serum 22.1 ng/mL [facility] 30.0-100.0 Low " rapid plasma reagin antibody, serum Non Reactive [facility] Non Reactive " hemoglobin A1C, blood, as % of total hemoglobin 9.4 % [facility] 4.8-5.6 High " prostate specific antigen 0.7 ng/[facility] " Neisseria gonorrhoeae DNA probe Negative [facility] Negative " chlamydia DNA probe Negative [facility] Negative " Helicobacter pylori antibody, IgG, serum 5.4 U/mL [facility] 0.0-0.8 High " testosterone, serum, free 5.7 pg/mL [facility] 7.2-24.0 Low " testosterone, total 776 ng/dL [facility] 348-1197 " LDL cholesterol, serum 150 mg/dL [facility] 0-99 High " very low density lipoproteins 69 mg/dL [facility] 5-40 High " HDL cholesterol, serum 47 mg/dL [facility] >39 " triglyceride, serum, fasting 345 mg/dL [facility] 0-149 High " cholesterol, serum 266 mg/dL [facility] 100-199 High " bacteria, urine microscopy None seen [facility] None seen/Few " mucus on urinalysis Present [facility] Not Estab. " epithelial cells, urine 0-10 [facility] 0 - 10 " RBC, Urine 0-2 /hpf [facility] 0 - 2 " WBC urine on microscopy 0-5 /hpf [facility] 0 - 5 " microscopic exam See below: [facility] " urinalysis, microscopic examination MICRON [facility] " nitrate, urine Negative [facility] Negative " urobilinogen, urine, semiquantitative (dipstick) 0.2 [facility] 0.2-1.0 " bilirubin, urine Negative [facility] Negative " ketones, urine, by test strip Negative [facility] Negative " glucose, urine, semiquantitative 3+ [facility] Negative Abnormal " protein, urine, semiquantitative (dipstick) Negative [facility] Negative/Trace " leukocyte esterase, urine, by dipstick Negative [facility] Negative " appearance, urine Clear [facility] Clear " urine color Yellow [facility] Yellow " pH, urine, semiquantitative 5.5 [facility] 5.0-7.5 " specific gravity, body fluid >1.030 [facility] 1.005-1.030 High " alanine aminotransferase (SGPT), serum 45 1/L [facility] 0-44 High " aspartate aminotransferase (SGOT), serum 28 1/L [facility] 0-40 " alkaline phosphatase, serum 105 1/L [facility] 39-117 " bilirubin, serum, total <0.2 mg/dL [facility] 0.0-1.2 " albumin/globulin ratio, serum 1.3 [facility] 1.1-2.5 " globulin, serum 3.5 [facility] 1.5-4.5 " albumin, serum 4.4 g/dL [facility] 3.5-5.5 " protein, total, serum 7.9 g/dL [facility] 6.0-8.5 " calcium, serum 10.2 mg/dL [facility] 8.7-10.2 " carbon dioxide, venous blood 25 mmol/L [facility] 18-29 " chloride, serum 95 mmol/L [facility] 97-108 Low " potassium, serum 4.2 mmol/L [facility] 3.5-5.2 " sodium, serum 136 mmol/L [facility] 134-144 " urea nitrogen/creatinine ratio, serum 18 [facility] 9-20 " eGFR if 105 mL/min/((173/100).m2) [facility] >59 " Estimated Glomerular Filtration Rate (calc) 91 mL/min/((173/100).m2) [facility] >59 " creatinine, serum 0.97 mg/dL [facility] 0.76-1.27 " urea nitrogen, blood 17 mg/dL [facility] 6-24 " blood glucose, random 219 mg/dL [facility] 65-99 High " immature granulocytes, percentage of total cells, blood 0 % [facility] " basophil count, absolute 0.1 x10E3/uL [facility] 0.0-0.2 " Eosinophil Absolute Count 0.2 X10E3/UL [facility] 0.0-0.4 " monocyte count, blood, automated 0.8 X10E3/UL [facility] 0.1-0.9 " lymphocyte count, blood, automated 2.8 X10E3/UL [facility] 0.7-3.1 " Absolute Neutrophils 5.7 X10E3/UL [facility] 1.4-7.0 " basophils as percent of blood leukocytes 1 % [facility] " eosinophils as percent of blood leukocytes 2 % [facility] " monocytes as percent of blood leukocytes 8 % [facility] " lymphocytes as percent of blood leukocytes 29 % [facility] " neutrophils as percent of blood leukocytes 60 % [facility] " platelet count 332 X10E3/UL [facility] 150-379 " red blood cell distribution width 13.7 % [facility] 12.3-15.4 " mean corpuscular hemoglobin concentration, RBC 35.0 G/DL [facility] 31.5-35.7 " mean corpuscular hemoglobin, RBC 32.0 pg [facility] 26.6-33.0 " mean corpuscular volume, RBC 92 fL [facility] 79-97 " hematocrit, blood 40.9 % [facility] 37.5-51.0 " hemoglobin, blood 14.3 g/dL [facility] 12.6-17.7 " erythrocyte (RBC) count 4.47 X10E6/UL [facility] 4.14-5.80 " leukocyte count, blood 9.5 X10E3/UL [facility] 3.4-10.8 blood glucose, random 218 mg/dL Zachary Eileen HISTORY OF IMMUNIZATIONS No Information Available HISTORY OF MEDICATION USE Medication Instructions Dates Provider Comments MUPIROCIN 2 % EXTERNAL OINTMENT apply 4 times a day as needed Paula Norman AMOXICILLIN-POT CLAVULANATE 875-125 MG ORAL TABLET take 1 tab By Mouth Twice a Day Paula Norman BD PEN NEEDLE SHORT U/F 31G X 8 MM use for lantus injections Rinal Herbert LANTUS SOLOSTAR 100 UNIT/ML SUBCUTANEOUS SOLUTION PEN-INJECTOR inject 20 units daily at 9 AM Ellaal Herbert 3 month supply TRIAMCINOLONE ACETONIDE 0.1 % EXTERNAL CREAM apply to affected area three times a day as needed for itching and red rash Paula Norman NASONEX 50 MCG/ACT NASAL SUSPENSION 2 sprays each nostril every day Paula Norman LORATADINE 10 MG ORAL TABLET 1 By Mouth once a day as needed for allergies Paula Norman AMLODIPINE BESYLATE 5 MG ORAL TABLET 1 tab by mouth daily Paula Norman GLIPIZIDE 10 MG ORAL TABLET 1 tab By Mouth Twice a Day - Paula Norman LANTUS SOLOSTAR 100 UNIT/ML SUBCUTANEOUS SOLUTION PEN-INJECTOR inject 20 units take at bedtime - Paula Norman ATORVASTATIN CALCIUM 20 MG ORAL TABLET 1 tab By Mouth Every Day Paula Norman HYDROCHLOROTHIAZIDE 25 MG ORAL TABLET 1 by mouth every day Jennifer Malin CHLORTHALIDONE 25 MG ORAL TABLET 1 tab By Mouth Every Morning - Jennifer Malin LISINOPRIL 40 MG ORAL TABLET 1 by mouth every day Paula Norman NIFEDIPINE ER 90 MG ORAL TABLET EXTENDED RELEASE 24 HOUR 1 by mouth every day - Jennifer Malin JANUVIA 100 MG TABLET TAKE ONE TABLET BY MOUTH EVERY DAY Ellajay Keon GLIPIZIDE 10 MG ORAL TABLET take 1 tablet Twice a Day - Paula Norman JANUVIA 50 MG ORAL TABLET 1 By Mouth once a day - Ramiro Rizzo DIFLUCAN 150 MG ORAL TABLET 1 by mouth now. May repeat in three days. - Ramiro Rizzo METFORMIN HCL 1000 MG ORAL TABLET 1 tab by mouth twice a day Ramiro Rizzo DIFLUCAN 150 MG ORAL TABLET 1 tab by mouth now. Repeat in three days. - Ramiro Rizzo FARXIGA 5 MG ORAL TABLET Take 1 tablet by mouth daily - Jessica Herbert FLONASE ALLERGY RELIEF 50 MCG/ACT NASAL SUSPENSION 1 spray in each nostril every day As Needed - Jennifersatnam Malin BROMFED DM 30-2-10 MG/5ML ORAL SYRUP 10 mL every four hours as needed for cough/congestion - Ramiro Rizzo MEDROL 4 MG ORAL TABLET THERAPY PACK use as directed - Ramiro Rizzo GLIPIZIDE XL 5 MG ORAL TABLET EXTENDED RELEASE 24 HOUR 1 tab By Mouth Every Day with first meal - Ramiro Rizzo AMLODIPINE BESYLATE 10 MG ORAL TABLET 1 tab by mouth daily - Ramiro Rizzo NIFEDIPINE ER 90 MG ORAL TABLET EXTENDED RELEASE 24 HOUR 1 by mouth every day - Ramiro Rizzo ASPIRIN 81 MG ORAL TABLET 1 by mouth every day Ramiro Rizzo OMEPRAZOLE 20 MG ORAL CAPSULE DELAYED RELEASE 1 by mouth Twice a Day for 14 days - Ramiro Rizzo BIAXIN 500 MG ORAL TABLET 1 by mouth twice a day for 14 days - Ramiro Rizzo AMOXICILLIN 500 MG ORAL CAPSULE 1 by mouth Twice a Day for 14 days - Ramiro Rizzo GLIMEPIRIDE 2 MG ORAL TABLET 1 By Mouth Twice a Day with largest meals - Ramiro Rizzo LIPITOR 40 MG ORAL TABLET 1 by mouth every pm - Ramiro Rizzo JANUMET 50-1000 MG ORAL TABLET 1 tab By Mouth Twice a Day - Ramiro Rizzo GABAPENTIN 300 MG ORAL CAPSULE 2 caps By Mouth Twice a Day Ramiro Rizzo LISINOPRIL-HYDROCHLOROTHIAZIDE 20-25 MG ORAL TABLET 1 by mouth daily in the morning - Ramiro Rizzo LISINOPRIL 20 MG ORAL TABLET 1 by mouth every day in the evening - Ramiro Rizzo SOCIAL HISTORY Date Observation Value Provider Exercise Program Referral T Juan Luis Bennett " Weight Management Counseling Provided T Juan Luis Bennett " Nutrition intervention T Co Юлия Bennett " drug use, illicit Never Co Юлия Moxey " alcohol use Never Co Юлия Moxey " social history reviewed E&M reviewed today Co Юлия Bennett " sexual orientation Heterosexual Co Юлия Moxey " is there any chance that you could be ? No Co Юлия Moxey " assessment of health literacy ([facility] 2014 Standards, 3C10) Adequate Co Юлия Moxey " passive cigarette smoke exposure Yes Co Юлия Bennett " smoking status current every day smoker Co Юлия Bennett time of call 06/27/2019 10:24 AM Rebecca Browning Exercise Program Referral T Ellajay Herbert " Weight Management Counseling Provided T Jessica Herbert " Nutrition intervention T Jessica Herbert " drug use, illicit Never Steve Archuleta " alcohol use Never Steve Archuleta " social history reviewed E&M reviewed today Steve Archuleta " is there any chance that you could be ? No Steve Archuleta " assessment of health literacy ([facility] 2014 Standards, 3C10) Adequate Steve Archuleta " passive cigarette smoke exposure No Steve Archuleta " smoking status current every day smoker Steve Archuleta smoking, advice to quit Yes Paula Castropard " cigarettes, number smoked per day 5-6 Paula Norman " drug use, illicit Never Mamtaa Roberto " alcohol use Never Mamtaa Roberto " smoking status current every day smoker John Mejia " social history reviewed E&M reviewed today John Mejia " assessment of health literacy ([facility] 2014 Standards, 3C10) Adequate Loraina Robetro " passive cigarette smoke exposure No Loraina Roberto " Exercise Program Referral T Hermelindanayelysujata Roberto " Weight Management Counseling Provided T Hermelindanayelysujata Roberto " Nutrition intervention T Lornayelya Roberto time of call 01/09/2019 9:58 AM Meghan Contreras smoking, advice to quit Yes Paula Castropard " Exercise Program Referral T Paula Norman " Weight Management Counseling Provided T Paula Norman " Nutrition intervention T Paula Canalesd " social history reviewed E&M reviewed today Cathy Quintanilla " sexual orientation Heterosexual Cathy Dwight " is there any chance that you could be ? No Cathy Quintanilla " assessment of health literacy ([facility] 2014 Standards, 3C10) Adequate Cathy Quintanilla " passive cigarette smoke exposure No Cathy Quintanilla " smoking status current every day smoker Cathy Quintanilla time of call 10/25/2018 9:14 AM Angle Avila social history reviewed E&M reviewed today Jennifer Malin " drug use, illicit Never Aamir Manning " alcohol use Never Aamir Manning " Occupation #[employer] Aamir Manning " sexual orientation Heterosexual Aamir Manning " assessment of health literacy ([facility] 2014 Standards, 3C10) Adequate Aamir Manning " passive cigarette smoke exposure No Aamir Manning " smoking status current every day smoker Aamir Manning Exercise Program Referral T Ramiro Rizzo " Weight Management Counseling Provided T Ramiro Rizzo " Nutrition intervention T Ramiro Rizzo " is there any chance that you could be ? No Zachary Eileen " passive cigarette smoke exposure No Zachary Eileen " smoking status current every day smoker Zachary Eileen " alcohol use Never Zachary Eileen " drug use, illicit Never Zachary Eileen " social history reviewed E&M reviewed today Zachary Eileen drug use, illicit Never Edge[place] Anisa " alcohol use Never Savanna Anisa " social history reviewed E&M reviewed today Savanna Anisa " passive cigarette smoke exposure No [place] Anisa " smoking status current every day smoker Savanna Anisa " Exercise Program Referral T [place] Anisa " Weight Management Counseling Provided T Savanna Anisa " Nutrition intervention T [place] Anisa Exercise Program Referral T Jessica Herbert " Weight Management Counseling Provided T Jessica Herbert " Nutrition intervention T Rinjay Herbert " drug use, illicit Never Alyssarohan Quach " alcohol use Never Alyssarohan Main " is there any chance that you could be ? No Channin Main " smoking status current every day smoker Aydee Main Exercise Program Referral T Ramiro Rizzo " Weight Management Counseling Provided T Ramiro Rizzo " Nutrition intervention T Ramiro Rizzo " passive cigarette smoke exposure No Zachary Eileen " smoking status current every day smoker Zachary Eileen " is there any chance that you could be ? No Zachary Eileen " social history reviewed E&M reviewed today Zachary Eileen Exercise Program Referral T Ramiro Rizzo " Weight Management Counseling Provided T Ramiro Rizzo " Nutrition intervention T Ramiro Rizzo " smoking, advice to quit Yes Ramiro Rizzo " cigarettes, number smoked per day 3-4/day Ramiro Rizzo " passive cigarette smoke exposure No Zachary Eileen " is there any chance that you could be ? No Zachary Eileen " smoking status current every day smoker Zachary Eileen " alcohol use Never Zachary Eileen " drug use, illicit Never Zachary Eileen " social history reviewed E&M reviewed today Zachary Eileen time of call 04/13/2017 9:59 AM Tammy Ragsdale Exercise Program Referral Chelsey Rizzo " Weight Management Counseling Provided Chelsey Rizzo " Nutrition intervention Chelsey Rizzo " smoking status current every day smoker Zachary Eileen " passive cigarette smoke exposure No Zachary Eileen " is there any chance that you could be ? No Zachary Eileen " alcohol use Never Zachary Eileen " drug use, illicit Never Zachary Eileen " social history reviewed E&M reviewed today Zachary Eileen smoking, advice to quit Yes Ramiro Rizzo " Exercise Program Referral Chelsey Rizzo " Weight Management Counseling Provided Chelsey Rizzo " Nutrition intervention Chelsey Rizzo " alcohol use Never Nazjely Geremias " drug use, illicit Never Nazjely Geremias " social history reviewed E&M reviewed today Nazjely Geremias " cigarettes, number smoked per day 1-4 Nazjely Geremias " smoking status current every day smoker Nazjely Geremias " passive cigarette smoke exposure No Nazjely Geremias " is there any chance that you could be ? No Nazjely Geremias Exercise Program Referral Chelsey Rizzo " Weight Management Counseling Provided Chelsey Rizzo " Nutrition intervention Chelsey Rizzo " drug use, illicit Never Mag Son " alcohol use Never Mag Son " social history reviewed E&M reviewed today Mag Son " is there any chance that you could be ? No Mag Son " cigarettes, number smoked per day 4-5 Mag Son " passive cigarette smoke exposure No Mag Son " smoking status current every day smoker Mag Son Exercise Program Referral Chelsey Rizzo " Weight Management Counseling Provided Chelsey Rizzo " Nutrition intervention Chelsey Rizzo " passive cigarette smoke exposure No Zachary Eileen " smoking status never smoker Zachary Eileen " alcohol use Never Zachary Eileen " drug use, illicit Never Zachary Eileen " social history reviewed E&M reviewed today Zachary Eileen Exercise Program Referral Chelsey Rizzo " Weight Management Counseling Provided Chelsey Rizzo " Nutrition intervention Chelsey Rizzo " passive cigarette smoke exposure No Zachary Eileen " drug use, illicit Never Zachary Eileen " smoking status never smoker Zachary Eileen " alcohol use Never Zachary Eileen " social history reviewed E&M reviewed today Zachary Eileen drug use, illicit Never Zachary Eileen " alcohol use Never Zachary Eileen " social history reviewed E&M reviewed today Zachary Eileen " passive cigarette smoke exposure No Zachary Eileen " smoking status never smoker Zachary Eileen " passive cigarette smoke exposure No Zachary Eileen " drug use, illicit Never Zachary Eileen " alcohol use Never Zachary Eileen " smoking status never smoker Zachary Eileen " social history reviewed E&M reviewed today Zachary Eileen Exercise Program Referral Chelsey Rizzo " Weight Management Counseling Provided Chelsey Rizzo " Nutrition intervention Chelsey Rizzo " drug use, illicit Never Zachary Eileen " alcohol use Never Zachary Eileen " sex at male Zachary Eileen " patient considered to be homeless No Zachary Eileen " social history reviewed E&M reviewed today Zachary Eileen " passive cigarette smoke exposure No Zachary Eileen " smoking status never smoker Zachary Eileen FUNCTIONAL STATUS Date Observation Value Provider total score, Activities of Daily Living (ADL) Independent Ramiro Rizzo MENTAL STATUS Date Observation Value Provider mental status examination: recall E&M intact for recent and remote events Paula Norman " assessment of judgment and insight E&M intact Paula Castropard " mental status examination: orientation E&M oriented to time, place, and person Paula Castropard " assessment of mood and affect E&M no depression, anxiety, or agitation Paula Castropard " Generalized Anxiety Disorder Questionnaire - Question 2 0 Co Юлия Bennett " Generalized Anxiety Disorder Questionnaire - Question 1 0 Juan Luis Bennett assessment of judgment and insight E&M intact Rinal Herbert " mental status examination: orientation E&M oriented to time, place, and person Rinal Herbert " assessment of mood and affect E&M no depression, anxiety, or agitation Rinal Herbert " Generalized Anxiety Disorder Questionnaire - Question 2 0 Steve Archuleta " Generalized Anxiety Disorder Questionnaire - Question 1 0 Steve Archuleta mental status examination: orientation E&M oriented to time, place, and person Paula Norman " assessment of mood and affect E&M no depression, anxiety, or agitation Paula Norman " Generalized Anxiety Disorder Questionnaire - Question 2 0 John Mejia " Generalized Anxiety Disorder Questionnaire - Question 1 0 John Mejia mental status examination: recall E&M intact for recent and remote events Paula Norman " mental status examination: orientation E&M oriented to time, place, and person Paula Norman " assessment of mood and affect E&M no depression, anxiety, or agitation Paula Norman " Generalized Anxiety Disorder Questionnaire - Question 2 0 Cathy Quintanilla " Generalized Anxiety Disorder Questionnaire - Question 1 0 Cathy Quintanilla assessment of judgment and insight E&M intact Jennifer Kimo " mental status examination: orientation E&M oriented to time, place, and person Jennifer Kimo " assessment of mood and affect E&M no depression, anxiety, or agitation Jennifersatnam Malin " Generalized Anxiety Disorder Questionnaire - Question 2 0 Aamir Manning " Generalized Anxiety Disorder Questionnaire - Question 1 0 Aamir Tejedao assessment of mood and affect E&M Appropriate affect without agitation Ramiro Friend'Isidro " mental status examination: orientation E&M oriented to time, place, and person Ramiro Friend'Isidro " assessment of judgment and insight E&M intact Ramiro Payam O'Isidro " Generalized Anxiety Disorder Questionnaire - Question 2 0 Zachary Arellano " Generalized Anxiety Disorder Questionnaire - Question 1 0 Zachary Arellano assessment of judgment and insight E&M intact Rinal Herbert " mental status examination: orientation E&M oriented to time, place, and person Rinal Herbert " assessment of mood and affect E&M Appropriate affect without agitation Rinal Herbert " Generalized Anxiety Disorder Questionnaire - Question 2 0 Savanna Lange " Generalized Anxiety Disorder Questionnaire - Question 1 0 Savanna Lange assessment of judgment and insight E&M intact Rinal Herbert " mental status examination: orientation E&M oriented to time, place, and person Rinal Herbert " assessment of mood and affect E&M Appropriate affect without agitation Rinal Herbert " Generalized Anxiety Disorder Questionnaire - Question 2 0 Aydee Quach " Generalized Anxiety Disorder Questionnaire - Question 1 0 Aydee Quach assessment of judgment and insight E&M intact Ramiro Rizzo " mental status examination: orientation E&M oriented to time, place, and person Ramiro Rizzo " assessment of mood and affect E&M Appropriate affect without agitation Ramiro Rizzo " Generalized Anxiety Disorder Questionnaire - Question 2 0 Zachary Arellano " Generalized Anxiety Disorder Questionnaire - Question 1 0 Zachary Arellano assessment of judgment and insight E&M intact Ramiro Rizzo " mental status examination: orientation E&M oriented to time, place, and person Ramiro Rizzo " assessment of mood and affect E&M Appropriate affect without agitation Ramiro Rizzo " Generalized Anxiety Disorder Questionnaire - Question 2 0 Zachary Arellano " Generalized Anxiety Disorder Questionnaire - Question 1 0 Zachary Arellano assessment of judgment and insight E&M intact Ramiro Payam Rizzo " mental status examination: orientation E&M oriented to time, place, and person Ramiro Rizoz " assessment of mood and affect E&M Appropriate affect without agitation Ramiro Rizzo " Generalized Anxiety Disorder Questionnaire - Question 2 0 Zachary Arellano " Generalized Anxiety Disorder Questionnaire - Question 1 0 Zachary Arellano assessment of judgment and insight E&M intact Ramiro Rizzo " assessment of mood and affect E&M Appropriate affect without agitation Ramiro Rizzo " Generalized Anxiety Disorder Questionnaire - Question 2 0 Steve Archuleta " Generalized Anxiety Disorder Questionnaire - Question 1 0 Steve Archuleta assessment of judgment and insight E&M intact Ramiro Rizzo " assessment of mood and affect E&M Appropriate affect without agitation Ramiro Rizzo " Generalized Anxiety Disorder Questionnaire - Question 2 0 Mag Son " Generalized Anxiety Disorder Questionnaire - Question 1 0 Mag Son assessment of judgment and insight E&M intact Ramiro Rizzo " assessment of mood and affect E&M Appropriate affect without agitation Ramiro Rizzo " Generalized Anxiety Disorder Questionnaire - Question 2 0 Zachary Arellano " Generalized Anxiety Disorder Questionnaire - Question 1 0 Zachary Arellano assessment of mood and affect E&M Appropriate affect without agitation Ramiro Rizzo " assessment of judgment and insight E&M intact Ramiro العراقيIsidro " Generalized Anxiety Disorder Questionnaire - Question 2 0 Zachary Eileen " Generalized Anxiety Disorder Questionnaire - Question 1 0 Zachary Eileen assessment of judgment and insight E&M intact Ramiro Hare Matthias " assessment of mood and affect E&M no depression, anxiety, or agitation Ramiro Payam Rizzo " Generalized Anxiety Disorder Questionnaire - Question 2 0 Zachary Eileen " Generalized Anxiety Disorder Questionnaire - Question 1 0 Zachary Eileen assessment of judgment and insight E&M intact Ramiro Hare Matthias " assessment of mood and affect E&M no depression, anxiety, or agitation Ramiro Payam Rizzo " Generalized Anxiety Disorder Questionnaire - Question 2 0 Zachary Eileen " Generalized Anxiety Disorder Questionnaire - Question 1 0 Zachary Eileen assessment of judgment and insight E&M intact Ramiro Hare Matthias " assessment of mood and affect E&M no depression, anxiety, or agitation Ramiro Payam Rizzo " Generalized Anxiety Disorder Questionnaire - Question 2 0 Zachary Eileen " Generalized Anxiety Disorder Questionnaire - Question 1 0 Zachary Eileen MEDICAL EQUIPMENT No Information Available FAMILY HISTORY No Information Available INSURANCE PROVIDERS Payer name Policy type / Coverage type Covered libertarian ID [facility] [email or web address] insurance [employer] 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 Metabolic Panel (14) Microalb/Creat Ratio, Rand Ur Hemoglobin A1c CBC With Differential/Platelet Hemoglobin A1c Vitamin C with dilution Lipid Panel Microalb/Creat Ratio, Randm Ur Hemoglobin A1c Comp. Metabolic Panel (14) Magnesium, Serum Vitamin D, 25-Hydroxy Urinalysis (w/micro), Complete SPOT Urine Protein: creatine ratio PTH, Intact Phosphorus, Serum Microalbumin, Random Urine Hemoglobin A1c CBC With Differential/Platelet Comp. Metabolic Panel (14) Hep B Surface Ab Hep B Core Ab, Tot HBsAg Screen HCV RNA, PCR, Ql (Quant Rflx) Vitamin D, 25-Hydroxy PSA, Serum (Serial Monitor) TSH Rfx on Abnormal to Free T4 Hemoglobin A1c Microalb/Creat Ratio, Randm Ur Lipid Panel Comp. Metabolic Panel (14) CBC With Differential/Platelet Hemoglobin A1c Microalb/Creat Ratio, Randm Ur Hemoglobin A1c Hemoglobin A1c Lipid Panel Comp. Metabolic Panel (14) PSA, Serum (Serial Monitor) Microalb/Creat Ratio, Randm Ur Vitamin D, 25-Hydroxy TSH Hemoglobin A1c Lipid Panel Comp. Metabolic Panel (14) CBC With Differential/Platelet Microalb/Creat Ratio, Randm Ur Hemoglobin A1c Lipid Panel Comp. Metabolic Panel (14) CBC With Differential/Platelet Hemoglobin A1c Lipid Panel Comp. Metabolic Panel (14) Vitamin D, 25-Hydroxy TSH Rfx on Abnormal to Free T4 Hemoglobin A1c Lipid Panel Comp. Metabolic Panel (14) Hemoglobin A1c Lipid Panel Comp. Metabolic Panel (14) CBC With Differential/Platelet Helicobacter Pylori Urea Breath Test Hemoglobin A1c Lipid Panel Comp. Metabolic Panel (14) CBC With Differential/Platelet H pylori, IgM, IgG, IgA Ab Lipase, Serum Amylase, Serum QuantiFERON TB Gold (In Tube) Urinalysis Complete w/reflex to Culture Vitamin D, 25-Hydroxy Testosterone,Free and Total PSA, Serum (Serial Monitor) HIV 1/2 ANTIGEN/ANTIBODY, FOURTH GENERATION W/RFL RPR, Rfx Qn RPR/Confirm TP HCV Antibody HBsAg Screen Chlamydia/GC Amplification FIT- Fecal immunoassay test TSH Rfx on Abnormal to Free T4 Hemoglobin A1c Lipid Panel Comp. Metabolic Panel (14) CBC With Differential/Platelet - - - Ofc Vst, Est Level IV Ofc Vst, Est Level IV Ofc Vst, Est Level IV Ofc Vst, Est Level IV [facility] - Internal Nephrology - [place] - [facility] [place] INFLUENZA VACCINE QUADRIVALENT 3 YRS PLUS IM Admin of Vaccine - Injection - 1 Est Patient Detailed - 72580 Nephrology - [place] - [facility] [place] Est Patient Detailed - 06693 Ofc Vst, Est Level IV Glucose Stick Prescription Assistance (Non-HIV) Ofc Vst, Est Level IV Vision Diabetes Education Endocrinology - Adult - [facility] Est Patient Detailed - 66630 Est Patient Well Exam (40 - 64 Yrs) - 13877 Pneumovax Vaccine PPSV23 Admin of Vaccine - Injection - 1 Est Patient Detailed - 40843 Prevnar (PCV13) IM TDAP Admin of Vaccine - Injection - Each Add'l Admin of Vaccine - Injection - 1 Est Patient Detailed - 42607 Est Patient Exp Problem - 06707 Est Patient Exp Problem - 31557 Est Patient Exp Problem - 98513 Est Patient Problem Focus - 05210 Glucose Stick Est Patient Exp Problem - 06678 Glucose Stick Venipuncture Handling of specimen for transfer New Patient Comprehensive - 32616 HISTORY OF PROCEDURES Procedure Date Procedure Name Provider Procedure Notes Status Glucose Stick Jessica Herbert completed Glucose Stick Ramiro Rizzo completed Glucose Stick Ramiro Rizzo completed Venipuncture Ramiro Rizzo completed GOALS No Information Available HEALTH CONCERNS No Information Available
--- OUTSIDE RECORDS SUMMARY | 2019-10-07 22:47 | XMS REPORT ---
Author [facility] Address Unknown Phone Unavailable Care Team Providers Care Programming Manager Name Role Phone REAL NICOLE Unavailable Unavailable Problems This patient has no known problems. Allergies, Adverse Reactions, Alerts This patient has no known allergies or adverse reactions. Medications This patient has no known medications. Results Test Description Test Time Test Comments Text Results Atomic Results Result Comments TOES 2 + VIEWS LT - HOPD 2019-08-26 20:46:00 [place] [address] Patient Name: PRISCILLA ZAMUDIO MR #: [id number] : 1965 Age/Sex: 54/M Req #: [id number] [facility] Physician: Ordered by: REAL NICOLE MD Report #: [id number] Location: [facility] Room/Bed: Procedure: [id number] HOPD/TOES 2 + VIEWS LT - HOPD Exam Date: 08/26/19 Exam Time: 2039 REPORT STATUS: Signed TOES 2 + VIEWS LT - HOPD - 3 views HISTORY: Pain COMPARISON: None available. FINDINGS: Bones: No acute displaced fracture. Osseous alignment is within normal limits. Joints: No malalignment. Soft tissues: Vascular calcifications. IMPRESSION: No acute radiographic abnormality. Signed by: Dr. Rishi Hubbard MD on 08/26/2019 8:48 PM Dictated By: RISHI HUBBARD MD 47 Transcribed By: KEN on 08/26/192047 COPY TO: REAL NICOLE MD
--- OUTSIDE RECORDS SUMMARY | 2019-10-07 22:48 | XMS REPORT ---
Author Author Admin, Bob White Organization Unknown Address Unknown Phone Unavailable PROBLEMS [...] active Ramiro Rizzo Erectile dysfunction active Ramiro Rizzo T level appropriate Hx of syncope active Ramiro Rizzo Abdominal pain, left upper quadrant completed - Ramiro Rizzo Diabetes mellitus, type II active Paula Castropard Hypertension active Ramiro Rizzo Overweight completed - Jennifer Malin ENCOUNTERS Date Type Provider Location Encounter Diagnosis - Ambulatory Encounter Paula Norman Co Юлия Bennett [facility] Adult Medicine UNK - Ambulatory Encounter Paula Norman [facility] Adult Medicine UNK - Ambulatory Encounter Paula Norman [facility] Adult Medicine UNK - Ambulatory Encounter Paula Norman Radha [place] Юлия Steinbergjone [facility] Adult Medicine Diabetes mellitus, type IIMedication, long-term useAllergic rhinitis, seasonalRash and other nonspecific skin eruptionBurn, 10-19% BSA, L great toe - Ambulatory Encounter Co Юлия Bennett [facility] Adult Medicine UNK - Ambulatory Encounter Paula Norman [facility] [place] UNK - Ambulatory Encounter Jessica Herbert [facility] Adult Medicine UNK - Ambulatory Encounter Paula Norman LM Adult Medicine UNK - Ambulatory Encounter Beth Greene [facility] Adult Medicine UNK - Ambulatory Encounter Beth Jc Norman [facility] Adult Medicine UNK - Ambulatory Encounter Paula Norman [facility] Adult Medicine UNK - Ambulatory Encounter Paula Norman [facility] Adult Medicine UNK - Ambulatory Encounter Jessica Herbert [facility] Adult Medicine UNK - Ambulatory Encounter Jessica Herbert Abbemagda Geremias [facility] Adult Medicine UNK - Ambulatory Encounter Paula Norman LM Adult Medicine UNK - Ambulatory Encounter Paula Norman [facility] Adult Medicine UNK - Ambulatory Encounter Paula Norman John Mejia [facility] Adult Medicine Allergic rhinitis, seasonalRash and other nonspecific skin eruption - Ambulatory Encounter Paula Norman Steve Espinosa [facility] Adult Medicine UNK - Ambulatory Encounter Paula Norman [facility] Adult Medicine UNK - Ambulatory Encounter Paula Norman [employer] Adult Medicine UNK - Ambulatory Encounter Jessica Herbert [facility] Adult Medicine UNK - Ambulatory Encounter Anh Samayoa [facility] Adult Medicine UNK - Ambulatory Encounter Linda Contreras [facility] Services UNK - Ambulatory Encounter Steve Archuleta [facility] Adult Medicine UNK - [facility] - Ambulatory Encounter Paula Norman [facility] Adult Medicine UNK - Ambulatory Encounter Paula Norman Cathy Archuleta [facility] Adult Medicine UNK - Ambulatory Encounter Jessica Herbert [facility] Adult Medicine UNK - Ambulatory Encounter Angle Avila [facility] UNK - Ambulatory Encounter New Kamara Yao [facility] Adult Medicine UNK - Ambulatory Encounter Anh Samayoa [facility] Adult Medicine UNK - Ambulatory Encounter Ramiro Rizzo [employer] Adult Medicine UNK - Ambulatory Encounter Jose Armando Gonzalez [facility] Adult Medicine UNK - Ambulatory Encounter Jennifer Malin [employer] Adult Medicine UNK - Ambulatory Encounter Aamir Manning [facility] Adult Medicine UNK - Ambulatory Encounter Fax Status [facility] Services UNK - Ambulatory Encounter Fax Status [facility] Services UNK - Ambulatory Encounter Jennifer Manning [facility] Adult Medicine UNK - Ambulatory Encounter [facility] - Ambulatory Encounter [facility] UNK - Ambulatory Encounter Fax Status [facility] Services UNK - Ambulatory Encounter Jennifer Manning [facility] Adult Medicine UNK - Ambulatory Encounter Jennifer Malin [facility] Adult Medicine UNK - Ambulatory Encounter Jennifer Malin [facility] Adult Medicine UNK - Ambulatory Encounter Jennifer Avila Armando Manning [facility] Adult Medicine OverweightBMI 31.0-31.9Tobacco useObesityMedication, long-term useLiver function abnormality - Ambulatory Encounter Lilo Prem LM Adult Medicine UNK - Ambulatory Encounter Steve Archuleta LM Adult Medicine UNK - Ambulatory Encounter Ramiro Rizzo Anh Yao [facility] Adult Medicine Microalbuminuria - Ambulatory Encounter Ramiro Rizzo [facility] Adult Medicine UNK - Ambulatory Encounter Ramiro Rizzo [facility] Adult Medicine UNK - Ambulatory Encounter Ramiro Rizzo Zachary Eileen [facility] Adult Medicine HyperlipidemiaBMI 29.0- 29.9BMI 31.0-31.9 - Ambulatory Encounter Rinal Herbert [facility] LM Adult Medicine UNK - Ambulatory Encounter Ana Laura Escobedo [facility] Vision UNK - Ambulatory Encounter Alice Malagon [facility] UNK - Ambulatory Encounter Janice Villalpando [facility] Combine Driver UNK - Ambulatory Encounter Rinal Herbert Savanna Anisa [facility] Adult Medicine UNK - Ambulatory Encounter Rinal Herbert [facility] Adult Medicine UNK - Ambulatory Encounter Rinal Herbert Aleja Villalpando Tyler Anisa [facility] Adult Medicine UNK - Ambulatory Encounter Rinal Herbert [facility] Adult Medicine UNK - Ambulatory Encounter Rinal Herbert [facility] Adult Medicine UNK - Ambulatory Encounter Rinal Herbert [facility] Adult Medicine UNK - Ambulatory Encounter Rinal Herbert [facility] Adult Medicine UNK - Ambulatory Encounter Rinal Herbert [employer] Adult Medicine UNK - Ambulatory Encounter Steve Archuleta [facility] Adult Medicine UNK - Ambulatory Encounter Jessica Herbert [facility] Adult Medicine UNK - Ambulatory Encounter Jessica Nortonlucinda Bryson Ana Laura Escobedo [facility] Adult Medicine UNK - Ambulatory Encounter Beth Jc [facility] Adult Medicine UNK - Ambulatory Encounter Ramiro Campos Jc [facility] Adult Medicine UNK - Ambulatory Encounter Ramiro Rizzo [facility] Adult Medicine UNK - [facility] Adult Medicine UNK - Ambulatory Encounter Ramiro Rizzo [facility] Adult Medicine UNK - Ambulatory Encounter Ramiro Rizzo [facility] Adult Medicine UNK - Ambulatory Encounter Ramiro Rizzo [facility] Adult Medicine UNK - Ambulatory Encounter Ramiro Sharma [facility] Adult Medicine Immunization updatePreventive health careColorectal screeningProstate Cancer, Screening - Ambulatory Encounter Ramiro Guerra [facility] Adult Medicine UNK - Ambulatory Encounter Ramiro Rizzo [email or web address] UNK - Ambulatory Encounter Ramiro Rizzo [facility] Adult Medicine UNK - Ambulatory [facility] - Ambulatory Encounter Ramiro Friend'Isidro [facility] Adult Medicine UNK - Ambulatory Encounter Fax Status [facility] UNK - Ambulatory Encounter Fax Status [facility] UNK - [facility]ulatory [facility] - Ambulatory Encounter Ramiro Rizzo [facility] Adult Medicine UNK - Ambulatory Encounter Ramiro Friend'Isidro Friend'Isidro Garcia [facility] Adult Medicine BMI 32.0-32.9Candidal balanitisBMI 29.0-29.9Preventive health carePeripheral vascular insufficiencyColorectal screeningProstate Cancer, Screening - Ambulatory Encounter Ramiro Friend'Isidro [employer] Adult Medicine UNK - Ambulatory Encounter Ramiro Friend'Isidro [employer] Adult Medicine UNK - Ambulatory Encounter Lacey Hall [facility] Dental UNK - Ambulatory Encounter Ramiro Hare O'Isidro Acuña [facility] UNK - Ambulatory Encounter Ramiro Rizzo [facility] Adult Medicine UNK - Ambulatory Encounter Ramiro Friend'Isidro Friend'Isidro Arellano [facility] Adult Medicine BronchitisCandidal balanitisImmunization update - Ambulatory Encounter Mag Son [facility] Adult Medicine UNK - Ambulatory Encounter Ramiro Rizzo Peyton Guerra LM Adult Medicine UNK - Ambulatory Encounter Ramiro Friend'Isidro LM Adult Medicine UNK - Ambulatory Encounter Ramiro Friend'Isidro [facility]ic LM Adult Medicine UNK - Ambulatory Encounter Ramiro Friend'Isidro LM Adult Medicine UNK - Ambulatory Encounter Ramiro Friend'Isidro Zabaladaniela Archuleta [facility] Adult Medicine BMI 32.0-32.9Bronchitis - Ambulatory Encounter Ramiro Friend'Isidro Friend'Isidro [facility] Adult Medicine UNK - Ambulatory Encounter Ramiro Friend'Isidro LM Adult Medicine UNK - Ambulatory Encounter Ramiro Friend'Isidro Friend'Isidro Magsyed Son [facility] Adult Medicine Helicobacter pylori gastrointestinal tract infectionVaccination Against Influenza - Ambulatory Encounter Florencio Givens [facility] Adult Medicine UNK - Ambulatory Encounter Anna Connell [facility] Adult Medicine UNK - Ambulatory Encounter Anna Connell [facility] LM Adult Medicine UNK - Ambulatory Encounter Ramiro Friend'Isidro [facility] LM Adult Medicine UNK - Ambulatory Encounter Av Tinajero LM Adult Medicine UNK - Ambulatory Encounter Ramiro Rizzo LM Adult Medicine UNK - Ambulatory Encounter Ramiro Friend'Isidro Friend'Isidro Arellano [facility] Adult Medicine UNK - Ambulatory Encounter Ramiro Friend'Isidro [facility] Adult Medicine UNK - Ambulatory Encounter Ramiro Hare O'Isidro Hare [facility]ro [facility] Adult Medicine UNK - Ambulatory Encounter Ramiro Hare O'Isidrojay Hare [facility]idro [facility] Adult Medicine UNK - Ambulatory Encounter Ramiro Hare O'Isidrojay Hare O'Isidro Zachary Eileen [facility] Adult Medicine Abdominal pain, left upper quadrant - Ambulatory Encounter Ramiro Hare O'Isidrojay Hare O'Isidro [facility] Adult Medicine UNK - Ambulatory Encounter Ramiro Hare O'Isidrojay Hare O'Isidro [facility] Adult Medicine UNK - Ambulatory Encounter Av Tinajero [facility] Adult Medicine UNK - Ambulatory Encounter Ramiro Hare O'Isidrojay Hare O'Isidro [facility] Adult Medicine UNK - Ambulatory Encounter Ramiro Hare O'Isidro Hare O'Isidro Zachary Eileen [facility] Adult Medicine UNK - Ambulatory Encounter Ramiro Hare O'Isidro Hare O'Isidro [facility] Adult Medicine UNK - Ambulatory Encounter Ramiro Hare O'Isidro Hare O'Isidro [facility] Adult Medicine UNK - Ambulatory Encounter Ramiro Hare O'Isidrojay Hare O'Isidro [facility] Adult Medicine UNK - Ambulatory Encounter Ramiro Hare O'Isidrojay Hare O'Isidro [facility] Adult Medicine UNK - Ambulatory Encounter Ramiro Hare O'Isidrojay Hare O'Isidro [facility] Adult Medicine UNK - Ambulatory Encounter Ramiro Hare O'Isidrojay Hare O'Isidro Zachary Eileen [facility] Adult Medicine UNK - Ambulatory Encounter Ramiro Hare O'Isidrojay Hare O'Isidro [facility] Adult Medicine UNK - Ambulatory Encounter Ramiro Rizzo [facility] Adult Medicine Diabetes mellitus, type IIErectile dysfunctionHyperlipidemiaHelicobacter pylori gastrointestinal tract infectionVitamin D deficiency - Ambulatory Encounter Ramiro Rizzo [facility] Adult Medicine UNK - Ambulatory Encounter [facility] Adult Medicine UNK - Ambulatory Encounter [facility] Adult Medicine UNK - Ambulatory Encounter Ramiro Rizzo [facility] Adult Medicine UNK - Ambulatory Encounter Ramiro Rizzo Zachary Arellano [facility] Adult Medicine OverweightHypertensionDiabetes mellitus, type IIAbdominal pain, left upper quadrantHx of syncopeErectile dysfunctionDiabetic peripheral neuropathy - Ambulatory Encounter [facility] - Ambulatory Encounter Av Tinajero [facility] Adult Medicine UNK - Ambulatory Encounter Av Tinajero [facility] Adult Medicine UNK VITAL SIGNS No Information Available ALLERGIES Allergy Name Onset Date Reaction Criticality Status NIFEDIPINE Facial swelling High Criticality active CHLORTHALIDONE Facial swelling High Criticality active REASON FOR REFERRAL Start Date - End Date Service - Endocrinology - Adult - CT Scan RESULTS Date Observation Value Provider Reference Range Interpretation Location blood glucose, random 198 mg/dL Co Юлия Bennett hemoglobin A1C, blood, as % of [...] High blood glucose, random 171 mg/dL Zachary Eileen microalbumin/total urine volume 16.6 mg/L [facility] Not [...] % [facility] " platelet count 411 X10E3/UL [facility] 150-379 High " red blood cell distribution width 13.1 % [facility] 12.3-15.4 " mean corpuscular hemoglobin concentration, RBC 34.0 G/DL [facility] 31.5-35.7 " mean corpuscular hemoglobin, RBC 31.9 pg [facility] 26.6-33.0 " mean corpuscular volume, RBC 94 fL [facility] 79-97 " hematocrit, blood 40.9 % Link[facility] 37.5-51.0 " hemoglobin, blood 13.9 g/dL [facility] 12.6-17.7 " erythrocyte (RBC) count 4.36 X10E6/UL [facility] 4.14-5.80 " leukocyte count, blood 8.2 X10E3/UL [facility] 3.4-10.8 blood glucose, random 120 mg/dL [facility] blood glucose, random 200 mg/dL [facility] Quantiferon Gold TB blood test for tuberculosis screening Negative [facility] Negative " hepatitis B surface antigen Negative [facility] Negative " lipase, serum 38 U/L [facility] 0-59 " amylase, serum 44 1/L [facility] 31-124 " thyroid stimulating hormone, serum 2.240 u[iU]/mL [facility] 0.450-4.500 " hepatitis C antibody, serum 0.1 [facility] 0.0-0.9 " HIV-CMIA (Chemiluminescent Microparticle Immuno Assay) Non Reactive [facility] Non Reactive " vitamin D 25-hydroxy, serum 22.1 ng/mL [facility] 30.0-100.0 Low " rapid plasma reagin antibody, serum Non Reactive [facility] Non Reactive " hemoglobin A1C, blood, as % of total hemoglobin 9.4 % [facility] 4.8-5.6 High " prostate specific antigen 0.7 ng/mL [facility] 0.0-4.0 " Neisseria gonorrhoeae DNA probe Negative [...] inject 20 units daily at 9 AM Rinal Herbert 3 month supply TRIAMCINOLONE ACETONIDE 0.1 [...] TABLET 1 by mouth every day Jennifer Kimo CHLORTHALIDONE 25 MG ORAL TABLET 1 tab By Mouth Every Morning - Jennifer Malin LISINOPRIL 40 MG ORAL TABLET 1 by mouth every day Paula Norman NIFEDIPINE ER 90 MG ORAL TABLET EXTENDED RELEASE 24 HOUR 1 by mouth every day - Jennifersatnam Malin JANUVIA 100 MG TABLET TAKE ONE TABLET BY MOUTH EVERY DAY Jessica Herbert GLIPIZIDE 10 MG ORAL TABLET take 1 [...] each nostril every day As Needed - Jennifer Malin BROMFED DM 30-2-10 MG/5ML ORAL SYRUP [...] Juan Luis Bennett " Nutrition intervention T Juan Luis Bennett " drug use, illicit Never Co Юлия Bennett " alcohol use Never Co Юлия Bennett " social history reviewed E&M reviewed today Juan Luis Bennett " sexual orientation Heterosexual Juan Luis Bennett " is there any chance that you could be ? No Co Юлия Bennett " assessment of health literacy ([facility] 2014 Standards, 3C10) Adequate Juan Luis Bennett " passive cigarette smoke exposure Yes Juan Luis Bennett " smoking status current every day smoker Co Юлия Bennett time of call 06/27/2019 10:24 AM Rebecca Browning Exercise Program Referral T Jessica Herbert " Weight Management Counseling Provided T Jessica Herbert " Nutrition intervention T Rinjay Herbert " drug use, illicit Never Steve Archuleta " alcohol use Never Steve Archuleta " social history reviewed E&M reviewed today Josettelucian Archuleta " is there any chance that you could be ? No Steve Archuleta " assessment of health literacy ([employer] 2014 Standards, 3C10) Adequate Steve Archuleta " [...] social history reviewed E&M reviewed today John Roberto " assessment of health literacy ([employer] 2014 Standards, 3C10) Adequate Lormarilee Mejia " passive cigarette smoke exposure No Lornayelya Roberto " Exercise Program Referral T John Mejia " Weight Management Counseling Provided T John Mejia " Nutrition intervention T John Mejia time of call 01/09/2019 9:58 AM Meghan Contreras smoking, advice to quit Yes Paula Castropard " Exercise Program Referral T Paula Castropard " Weight Management Counseling Provided T Paula Castropard " Nutrition intervention T Paula Castropard " social history reviewed E&M reviewed today Cathy Quintanilla " sexual orientation Heterosexual Cathy Quintanilla " is there any chance that you could be ? No Cathy Quintanilla " assessment of health literacy ([employer] 2014 Standards, 3C10) Adequate Cathy Quintanilla " passive cigarette smoke exposure No Cathy Quintanilla " smoking status current every day smoker Cathy Quintanilla time of call 10/25/2018 9:14 AM Angle Avila social history reviewed E&M reviewed today Jennifer Malin " drug use, illicit Never Aamir Manning " alcohol use Never Aamir Manning " Occupation #1 [employer] Aamir Manning " sexual orientation Heterosexual Aamir Manning " assessment of health literacy ([employer] 2014 Standards, 3C10) Adequate Aamir Manning " passive cigarette smoke exposure No Aamir Manning " smoking status current every day smoker Aamir Manning Exercise Program Referral T Ramiro Rizzo " Weight Management Counseling Provided Chelsey Rizzo " Nutrition intervention T Ramiro Rizzo " is there any chance that you could be ? No Zachary Eileen " passive cigarette smoke exposure No Zachary Eileen " smoking status current every day smoker Zachary Eileen " alcohol use Never Zachary Eileen " drug use, illicit Never Zachary Eileen " social history reviewed E&M reviewed today Zachary Eileen drug use, illicit Never Savanna Anisa " alcohol use Never Savanna Anisa " social history reviewed E&M reviewed today Tyler Anisa " passive cigarette smoke exposure No Savanna Anisa " smoking status current every day smoker Savanna Anisa " Exercise Program Referral T Tyler Anisa " Weight Management Counseling Provided T Tyler Anisa " Nutrition intervention T Savanna Anisa Exercise Program Referral T Jessica Herbert " Weight Management Counseling Provided T Rinjay Herbert " Nutrition intervention T Rinjay Herbert " drug use, illicit Never Aydee Quach " alcohol use Never Channin Main " is there any chance that you could be ? No Channin Main " smoking status current every day smoker Aydee Quach Exercise Program Referral T Ramiro Rizzo " [...] Chelsey Rizzo " Weight Management Counseling Provided T Ramiro Rizzo " Nutrition intervention Chelsey Rizzo " smoking, advice to quit Yes [...] intervention Chelsey Rizzo " alcohol use Never Nadaniela Archuleta " drug use, illicit Never Nalexjely Geremias " social history reviewed E&M reviewed today Nadaniela Archuleta " cigarettes, number smoked per day 1-4 Nazilanly Geremias " smoking status current every day smoker Steve Archuleta " passive cigarette smoke exposure No Nazjely [...] of judgment and insight E&M intact Paula Norman " mental status examination: orientation E&M oriented to time, place, and person Paula Norman " assessment of mood and affect E&M no depression, anxiety, or agitation Paula Norman " Generalized Anxiety Disorder Questionnaire - Question 2 0 Co Юлия Bennett " Generalized Anxiety Disorder Questionnaire - Question 1 0 Co Юлия Bennett assessment of judgment and insight E&M intact Jessica Herbert " mental status examination: orientation E&M [...] affect E&M no depression, anxiety, or agitation Jennifer Kimo " Generalized Anxiety Disorder Questionnaire - Question 2 0 Aamir Manning " Generalized Anxiety Disorder Questionnaire - Question 1 0 Aamir Manning assessment of mood and affect E&M Appropriate affect without agitation Ramiro Rizzo " mental status examination: orientation E&M oriented to time, place, and person Ramiro Rizzo " assessment of judgment and insight E&M intact Ramiro Rizzo " Generalized Anxiety Disorder Questionnaire [...] E&M oriented to time, place, and person Jessica Herbert " assessment of mood and affect E&M Appropriate affect without agitation Jessica Herbert " Generalized Anxiety Disorder Questionnaire - Question 2 0 Aydee Quach " Generalized Anxiety Disorder Questionnaire - Question 1 0 Aydee Quach assessment of judgment and insight E&M intact Ramiro Hare O'Isidro " mental status examination: orientation E&M oriented to time, place, and person Ramiro Hare O'Isidro " assessment of mood and affect E&M Appropriate affect without agitation Ramiro Payam O'Isidro " Generalized Anxiety Disorder Questionnaire - Question 2 0 Zachary Arellano " Generalized Anxiety Disorder Questionnaire - Question 1 0 Zachary Arellano assessment of judgment and insight E&M intact Ramiro Hare O'Isidro " mental status examination: orientation E&M oriented to time, place, and person Ramiro Hare O'Isidro " assessment of mood and affect E&M Appropriate affect without agitation Ramiro Hare O'Isidro " Generalized Anxiety Disorder Questionnaire - Question 2 0 Zachary Arellano " Generalized Anxiety Disorder Questionnaire - Question 1 0 Zachary Arellano assessment of judgment and insight E&M intact Ramiro Hare O'Isidro " mental status examination: orientation E&M oriented to time, place, and person Ramiro Hare O'Isidro " assessment of mood and affect E&M Appropriate affect without agitation Ramiro Hare O'Isidro " Generalized Anxiety Disorder Questionnaire - Question 2 0 Zachary Arellano " Generalized Anxiety Disorder Questionnaire - Question 1 0 Zachary Arellano assessment of judgment and insight E&M intact Ramiro Hare O'Isidro " assessment of mood and affect E&M Appropriate affect without agitation Ramiro Hare O'Isidro " Generalized Anxiety Disorder Questionnaire - Question 2 0 Steve Archuleta " Generalized Anxiety Disorder Questionnaire - Question 1 0 Steve Archuleta assessment of judgment and insight E&M intact Ramiro Hare O'Isidro " assessment of mood and affect E&M Appropriate affect without agitation Ramiro Payam O'Isidro " Generalized Anxiety Disorder Questionnaire - Question 2 0 Mag Son " Generalized Anxiety Disorder Questionnaire - Question 1 0 Mag Son assessment of judgment and insight E&M intact Ramiro Hare O'Isidro " assessment of mood and affect E&M Appropriate affect without agitation Ramiro Hare O'Isidro " Generalized Anxiety Disorder Questionnaire - Question 2 0 Zachary Arellano " Generalized Anxiety Disorder Questionnaire - Question 1 0 Zachary Eileen assessment of mood and affect E&M Appropriate affect without agitation Ramiro Rizzo " assessment of judgment and insight E&M intact Ramiro Rizzo " Generalized Anxiety Disorder Questionnaire - Question 2 0 Zachary Eileen " Generalized Anxiety Disorder Questionnaire - Question 1 0 Zachary Garzais assessment of judgment and insight E&M intact Ramiro Rizzo " assessment of mood and affect E&M no depression, anxiety, or agitation Ramiro Rizzo " Generalized Anxiety Disorder Questionnaire - Question 2 0 Zachary Eileen " Generalized Anxiety Disorder Questionnaire - Question 1 0 Zachary Garzais assessment of judgment and insight E&M intact Ramiro Payam Rizzo " assessment of mood and affect E&M no depression, anxiety, or agitation Ramiro Rizzo " Generalized Anxiety Disorder Questionnaire - Question 2 0 Zachary Eileen " Generalized Anxiety Disorder Questionnaire - Question 1 0 Zachary Garzais assessment of judgment and insight E&M intact Ramiro Payam Rizzo " assessment of mood and affect E&M no depression, anxiety, or agitation Ramiro Rizzo " Generalized Anxiety Disorder Questionnaire - Question 2 0 Zachary Eileen " Generalized Anxiety Disorder Questionnaire - Question 1 0 Zachary Eileen MEDICAL EQUIPMENT No Information Available FAMILY HISTORY No Information Available INSURANCE PROVIDERS Payer name Policy type / Coverage type Covered green party ID Sliding 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 [id number] [facility] [employer] [id number] Sliding 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 Metabolic Panel (14) CBC With Differential/Platelet Urinalysis (w/micro), Complete Vitamin D, 25-Hydroxy Lipid Panel Comp. Metabolic Panel (14) Microalb/Creat Ratio, Randm Ur Hemoglobin A1c CBC With Differential/Platelet Hemoglobin [...] (14) CBC With Differential/Platelet - - - - Ofc Vst, Est Level IV Ofc Vst, Est Level IV Ofc Vst, Est Level IV Ofc Vst, Est Level IV Vision Dental - Internal Nephrology - Adult [facility] INFLUENZA VACCINE QUADRIVALENT 3 YRS PLUS IM Admin of Vaccine - Injection - 1 Est Patient Detailed - 29151 Nephrology - Adult - [facility] Est Patient Detailed - 47537 Ofc Vst, Est Level IV Glucose Stick Prescription Assistance (Non-HIV) Ofc Vst, Est Level IV Vision Diabetes Education Endocrinology - Adult - [facility] Est Patient Detailed - 95930 Est Patient Well Exam (40 - 64 Yrs) - 12814 Pneumovax Vaccine PPSV23 Admin of Vaccine - Injection - 1 Est Patient Detailed - 49202 Prevnar (PCV13) IM TDAP Admin of Vaccine - Injection - Each Add'l Admin of Vaccine - Injection - 1 Est Patient Detailed - 86579 Est Patient Exp Problem - 83119 Est Patient Exp Problem - 22981 Est Patient Exp Problem - 74928 Est Patient Problem Focus - 92704 Glucose Stick Est Patient Exp Problem - 03240 Glucose Stick Venipuncture Handling of specimen for transfer New Patient Comprehensive - 70376 HISTORY OF PROCEDURES Procedure Date Procedure Name Provider Procedure Notes Status Glucose Stick Jessica Herbert completed Glucose Stick Ramiro Rizzo completed Glucose Stick Ramiro Rizzo completed Venipuncture Ramiro Rizzo completed GOALS No Information Available HEALTH CONCERNS No Information Available
--- OUTSIDE RECORDS SUMMARY | 2019-10-07 22:49 | XMS REPORT ---
Author Author Admin, [place] Organization Unknown Address Unknown Phone Unavailable PROBLEMS [...] Encounter Diagnosis - Ambulatory Encounter Paula Norman LinkLogic [facility] Adult Medicine UNK - Ambulatory Encounter Paula Norman [facility] Adult Medicine UNK - Ambulatory Encounter Paula Norman [place] Bennett [facility] Adult Medicine UNK - Ambulatory Encounter Paula Norman [place] Bennett [facility] Adult Medicine UNK - Ambulatory Encounter Paula Norman [facility] Adult Medicine UNK - Ambulatory Encounter Paula Norman [facility] Adult Medicine UNK - Ambulatory Encounter Paula Norman Radha [place] Юлия Steinbergxjone [facility] Adult Medicine Diabetes mellitus, type IIMedication, long-term useAllergic rhinitis, seasonalRash and other nonspecific skin eruptionBurn, 10-19% BSA, L great toe - Ambulatory Encounter Co Юлия Bennett [facility] Adult Medicine UNK - Ambulatory Encounter Paula Norman Peyton Orr MedAdherence, Rebecca Aguilar [place] UNK - Ambulatory Encounter Jessica Herbert [facility] Adult Medicine UNK - Ambulatory Encounter Paula Norman [facility] Adult Medicine UNK - Ambulatory Encounter Beth Greene [facility] Adult Medicine UNK - Ambulatory Encounter Beth Norman [facility] Adult Medicine UNK - Ambulatory Encounter Paula Norman [employer] Adult Medicine UNK - Ambulatory Encounter Paula Norman [facility]Logic LM Adult Medicine UNK - Ambulatory Encounter Ellajay Herbert [facility] Adult Medicine UNK - Ambulatory Encounter Ellajay Archuleta [facility] Adult Medicine UNK - Ambulatory Encounter Paula Norman [facility] Adult Medicine UNK - Ambulatory Encounter Paula Norman [facility] Adult Medicine UNK - Ambulatory Encounter Paula Norman John Mejia [facility] Adult Medicine Allergic rhinitis, seasonalRash and other nonspecific skin eruption - Ambulatory Encounter Paula Norman Steve Espinosa [facility] Adult Medicine UNK - Ambulatory Encounter Paula Norman [employer] [facility] Adult Medicine UNK - Ambulatory Encounter Paula Norman [employer] Adult Medicine UNK - Ambulatory Encounter Jessica Herbert [employer] Adult Medicine UNK - Ambulatory Encounter Anh Samayoa [facility] Adult Medicine UNK - Ambulatory Encounter [facility] UNK - Ambulatory Encounter Steve Archuleta [facility] Adult Medicine UNK - Ambulatory Encounter [facility] UNK - Ambulatory Encounter Paula Norman LM Adult Medicine UNK - Ambulatory Encounter Paula Norman Cathy Archuleta [facility] Adult Medicine UNK - Ambulatory Encounter Jessica Herbert [facility] Adult Medicine UNK - Ambulatory Encounter Angle Avila [facility] Public Health Services UNK - Ambulatory Encounter New Stanley Anh Samayoa [facility] Adult Medicine UNK - Ambulatory Encounter Anh Samayoa [facility] Adult Medicine UNK - Ambulatory Encounter [facility] UNK - Ambulatory Encounter Jose Armando Gonzalez [facility] Adult Medicine UNK - Ambulatory Encounter [facility]in [facility] UNK - Ambulatory Encounter Aamir Manning [facility] Adult Medicine UNK - Ambulatory Encounter Fax Status [facility] UNK - Ambulatory Encounter Fax Status [facility] UNK - Ambulatory Encounter Jennifer Manning [facility] Adult Medicine UNK - Ambulatory Encounter [facility] - [facility]ulatory Encounter Fax Status [facility] UNK - Ambulatory Encounter [facility] - Ambulatory Encounter Jennifer Manning [facility] Adult Medicine UNK - Ambulatory Encounter Jennifer Malin [facility] Adult Medicine UNK - Ambulatory Encounter Jennifer Malin [facility] Adult Medicine UNK - Ambulatory Encounter Jennifer Manning [facility] Adult Medicine OverweightBMI 31.0-31.9Tobacco useObesityMedication, long-term useLiver function abnormality - Ambulatory Encounter Lilo Amaro [facility] Adult Medicine UNK - Ambulatory Encounter Steve Archuleta [facility] Adult Medicine UNK - Ambulatory Encounter Ramiro Friend'Isidro Friend'Isidro Samayoa [facility] Adult Medicine Microalbuminuria - Ambulatory Encounter Ramiro Friend'Isidro Hare O'Isidro [facility] Adult Medicine UNK - Ambulatory Encounter Ramiro Friend'Isidro Friend'Isidro [facility] Adult Medicine UNK - Ambulatory Encounter Ramiro Hare O'Isidro Hare O'Isidro Zachary Eileen [facility] Adult Medicine HyperlipidemiaBMI 29.0- 29.9BMI 31.0-31.9 - Ambulatory Encounter Rinjay Herbert [employer] Adult Medicine UNK - Ambulatory Encounter Ana Laura Escobedo [facility] Vision UNK - Ambulatory Encounter Alice Malagon [facility] UNK - Ambulatory Encounter Janice Villalpando [facility] Scoreboard Operator UNK - Ambulatory Encounter Rinal Herbert Savanna Lange [facility] Adult Medicine UNK - Ambulatory Encounter Rinal Herbert [facility] Adult Medicine UNK - Ambulatory Encounter Rinal Herbert Aleja Gomez Anisa [facility] Adult Medicine UNK - Ambulatory Encounter Rinal Herbert [employer] [facility] Adult Medicine UNK - Ambulatory Encounter Rinal Herbert [facility] LM Adult Medicine UNK - Ambulatory Encounter Rinal Herbert [facility] LM Adult Medicine UNK - Ambulatory Encounter Rinjay Herbert LM Adult Medicine UNK - Ambulatory Encounter Rinjay Herbert [facility] LM Adult Medicine UNK - Ambulatory Encounter Sagrariodaniela Archuleta [facility] Adult Medicine UNK - Ambulatory Encounter Rinjay Herbert LM Adult Medicine UNK - Ambulatory Encounter Rinal Keon Escobedo [facility] Adult Medicine UNK - Ambulatory Encounter Beth Greene [facility] Adult Medicine UNK - Ambulatory Encounter Ramiro Greene [facility] Adult Medicine UNK - Ambulatory Encounter Ramiro Rizzo [facility] Adult Medicine UNK - Ambulatory Encounter Ramiro Rizzo [employer] [facility] Adult Medicine UNK - Ambulatory Encounter Ramiro Rizzo [facility] Adult Medicine UNK - Ambulatory Encounter Ramiro Rizzo [facility] Adult Medicine UNK - Ambulatory Encounter Ramiro Rizzo [facility] Adult Medicine UNK - Ambulatory Encounter Ramiro Sharma [facility] Adult Medicine Immunization updatePreventive health careColorectal screeningProstate Cancer, Screening - Ambulatory Encounter Ramiro Guerra [facility] Adult Medicine UNK - Ambulatory Encounter Ramiro Hare O'Isidro Hare O'Isidro [facility] UNK - Ambulatory Encounter Ramiro Friend'Isidro Hare [facility] UNK - Ambulatory Encounter Ramiro Hare O'Isidro Hare O'Isidro [facility] Adult Medicine UNK - Ambulatory Encounter Ramiro Hare O'Isidro [facility] UN[facility] - Ambulatory Encounter Fax Status [facility] UNK - Ambulatory Encounter Fax Status [facility] UNK - Ambulatory [facility] - [facility]ulatory Encounter Ramiro Friend'Isidro Hare O'Isidro [facility] Adult Medicine UNK - Ambulatory Encounter Ramiro Hare O'Isidro Hare O'Isidrojay [place] [facility] Adult Medicine BMI 32.0-32.9Candidal balanitisBMI 29.0-29.9Preventive health carePeripheral vascular insufficiencyColorectal screeningProstate Cancer, Screening - Ambulatory Encounter Ramiro Friend'Isidro Hare O'Isidro [employer] [facility] Adult Medicine UNK - Ambulatory Encounter Ramiro Hare O'Isidro Hare O'Isidro [employer] [facility] Adult Medicine UNK - Ambulatory Encounter Lacey Hall [facility] Dental UNK - Ambulatory Encounter Ramiro Hare O'Isidro Hare O'Isidrojay Jones [facility] UNK - Ambulatory Encounter Ramiro Hare O'Isidrojay Rizzo [facility] Adult Medicine UNK - Ambulatory Encounter Ramiro Loveon Eileen [facility] Adult Medicine BronchitisCandidal balanitisImmunization update - Ambulatory Encounter Mag Son [facility] Adult Medicine UNK - Ambulatory Encounter Ramiro Guerra [facility] Adult Medicine UNK - Ambulatory Encounter Ramiro Rizzo [facility] Adult Medicine UNK - Ambulatory Encounter Ramiro Rizzo [facility] Adult Medicine UNK - Ambulatory Encounter Ramiro Rizzo [facility] Adult Medicine UNK - Ambulatory Encounter Ramiro Archuleta [facility] Adult Medicine BMI 32.0-32.9Bronchitis - Ambulatory Encounter Ramiro Rizzo [facility] Adult Medicine UNK - Ambulatory Encounter Ramiro Rizzo [facility] Adult Medicine UNK - Ambulatory Encounter Ramiro Son [facility] Adult Medicine Helicobacter pylori gastrointestinal tract infectionVaccination Against Influenza - Ambulatory Encounter Florencio Givens [facility] Adult Medicine UNK - Ambulatory Encounter Anna Connell [facility] Adult Medicine UNK - Ambulatory Encounter Anna JacobsenLogic [facility] Adult Medicine UNK - Ambulatory Encounter [facility]ro [facility] UNK - Ambulatory Encounter Av Tinajero [facility] Adult Medicine UNK - Ambulatory Encounter Ramiro Hare O'Isidro [facility] O'[facility]idro [facility] Adult Medicine UNK - Ambulatory Encounter Ramiro Hare O'Isidro Hare O'Isidro Zachary Eileen [facility] Adult Medicine UNK - Ambulatory Encounter Ramiro Hare O'Isidro Hare O'Isidro [facility] Adult Medicine UNK - Ambulatory Encounter Ramiro Hare O'Isidrojay aHre O'Isidro [facility] Adult Medicine UNK - Ambulatory [...] Adult Medicine UNK - Ambulatory Encounter Ramiro Arellano [facility] Adult Medicine UNK - Ambulatory Encounter Ramiro Rizzo [employer] [facility] Adult Medicine UNK - Ambulatory Encounter Ramiro Rizzo [facility] Adult Medicine Diabetes mellitus, type IIErectile dysfunctionHyperlipidemiaHelicobacter pylori gastrointestinal tract infectionVitamin D deficiency - Ambulatory Encounter Ramiro Rizzo [employer] [facility] Adult Medicine UNK - [facility] - Ambulatory Encounter Yuri [facility] Adult Medicine UNK - Ambulatory Encounter Ramiro Rizzo [facility] Adult Medicine UNK - Ambulatory Encounter Ramiro Loveon [facility] Adult Medicine OverweightHypertensionDiabetes mellitus, type IIAbdominal pain, left upper quadrantHx of syncopeErectile dysfunctionDiabetic peripheral neuropathy - Ambulatory Encounter Ramiro Rizzo [facility] UNK - Ambulatory Encounter Av Tinajero [facility] Adult Medicine UNK - Ambulatory Encounter Av Tinajero [facility] Adult Medicine UNK VITAL SIGNS No Information Available ALLERGIES Allergy Name Onset Date Reaction Criticality Status NIFEDIPINE Facial swelling High Criticality active CHLORTHALIDONE Facial swelling High Criticality active REASON FOR REFERRAL Start Date - End Date Service - Endocrinology - Adult - CT Scan RESULTS Date Observation Value Provider Reference Range Interpretation Location microalbumin/creatinine ratio, urine 4905.3 MG/G CREAT [facility] 0.0-30.0 High " microalbumin/total urine volume 4792.5 mg/L [facility] Not Estab. " creatinine, random, urine 97.7 mg/dL [facility] Not Estab. " bacteria, urine microscopy None seen [facility] None seen/Few " mucus on urinalysis Present [facility] Not Estab. " cast type, urinalysis Granular casts [facility] N/A Abnormal " casts, urine Present [facility] None seen Abnormal " epithelial cells, urine 0-10 [facility] 0 - 10 " RBC, Urine 0-2 /hpf [facility] 0 - 2 " WBC urine on microscopy 0-5 /hpf [facility] 0 - 5 " urinalysis, microscopic examination See below: [facility]ic " nitrate, urine Negative [facility] Negative " urobilinogen, urine, semiquantitative (dipstick) 0.2 [facility] 0.2-1.0 " bilirubin, urine Negative [facility] Negative " ketones, urine, by test strip Negative [facility] Negative " glucose, urine, semiquantitative 3+ [facility] Negative Abnormal " protein, urine, semiquantitative (dipstick) 3+ [facility] Negative/Trace Abnormal " leukocyte esterase, urine, by dipstick Negative [facility] Negative " appearance, urine Clear [facility] Clear " urine color Yellow [facility] Yellow " pH, urine, semiquantitative 5.5 [facility] 5.0-7.5 " specific gravity, body fluid 1.023 [facility] 1.005-1.030 blood glucose, random 144 mg/dL [facility] blood glucose, random 198 mg/dL [facility] hemoglobin A1C, blood, as % of total [...] 3.4-10.8 blood glucose, random 206 mg/dL Zachary Eileen hemoglobin A1C, blood, as % of total [...] " mean corpuscular volume, RBC 94 fL [facility] 79-97 " hematocrit, blood 40.9 % LinkLog 37.5-51.0 " hemoglobin, blood 13.9 g/dL LinkLog 12.6-17.7 " erythrocyte (RBC) count 4.36 [facility]E6/[facility] 4.14-5.80 " leukocyte count, blood 8.2 X10E3/UL LinkLog 3.4-10.8 blood glucose, random 120 mg/dL [facility] blood glucose, random 200 mg/dL [facility] Quantiferon Gold TB blood test for tuberculosis screening Negative Link[facility] Negative " hepatitis B surface antigen Negative [facility] Negative " lipase, serum 38 U/L LinkLog 0-59 " amylase, serum 44 1/L [facility] 31-124 " thyroid stimulating hormone, serum 2.240 u[iU]/[facility] 0.450-4.500 " hepatitis C antibody, serum 0.1 [facility] 0.0-0.9 " HIV-CMIA (Chemiluminescent Microparticle Immuno Assay) Non Reactive [facility] Non Reactive " vitamin D 25-hydroxy, serum 22.1 ng/mL [facility] 30.0-100.0 Low " rapid plasma reagin antibody, serum Non Reactive [facility]ic Non Reactive " hemoglobin A1C, blood, as % of total hemoglobin 9.4 % LinkLog 4.8-5.6 High " prostate specific antigen 0.7 ng/mL LinkLog 0.0-4.0 " Neisseria gonorrhoeae DNA probe Negative [...] Mouth Twice a Day - Paula Norman BD PEN NEEDLE SHORT U/F [...] day as needed for allergies Paula Norman HYDRALAZINE HCL 25 MG ORAL TABLET 1 tab By Mouth Three Times a Day Paula Norman GLIPIZIDE 10 MG ORAL TABLET 1 tab By Mouth Twice a Day - Paula Norman LANTUS SOLOSTAR 100 UNIT/ML SUBCUTANEOUS SOLUTION PEN-INJECTOR inject 20 units take at bedtime - Paula Norman ATORVASTATIN CALCIUM 20 MG ORAL TABLET 1 tab By Mouth Every Day Paula Norman HYDROCHLOROTHIAZIDE 25 MG ORAL TABLET 1 by mouth every day Jennifersatnam Malin CHLORTHALIDONE 25 MG ORAL TABLET 1 tab By Mouth Every Morning - Jennifersatnam Malin LISINOPRIL 40 MG ORAL TABLET 1 [...] Observation Value Provider Exercise Program Referral T Co Юлия Bennett " Weight Management Counseling Provided T Co Юлия Sabrina " Nutrition intervention T Co Юлия Moxjone " drug use, illicit Never Co Юлия Moxey " alcohol use Never Co Юлия Moxey " social history reviewed E&M reviewed today Co Юлия Bennett " sexual orientation Heterosexual Co Юлия Moxey " assessment of health literacy ([facility] 2014 Standards, 3C10) Adequate Co Юлия Moxey " passive cigarette smoke exposure Yes Co Юлия Moxey " smoking status current every day smoker Co Юлия Moxey Exercise Program Referral T Co Юлия Idrisxjone " Weight Management Counseling Provided T Co Юлия Idrisxey " Nutrition intervention T Co Юлия Moxey " drug use, illicit Never Co Юлия Moxey " alcohol use Never Co Юлия Moxey " social history reviewed E&M reviewed today Co Юлия Moxey " sexual orientation Heterosexual Co Юлия Moxey " is there any chance that you could be ? No Co Юлия Moxey " assessment of health literacy ([facility] 2014 Standards, 3C10) Adequate Co Юлия Moxey " passive cigarette smoke exposure Yes Co Юлия Moxey " smoking status current every day smoker Co Юлия Moxey time of call 06/27/2019 10:24 AM Rebecca [...] " assessment of health literacy ([facility] 2014 Standards, 3C10) Adequate Nadaniela Archuleta " passive cigarette smoke exposure No Nadaniela Archuleta " smoking status current every day smoker Steve Archuleta smoking, advice to quit Yes Paula Norman " cigarettes, number smoked per day 5-6 Paula Norman " drug use, illicit Never Lornayelya Roberto " alcohol use Never Lornayelya Roberto " smoking status current every day smoker John Roberto " social history reviewed E&M reviewed today Lormarilee Mejia " assessment of health literacy ([facility] 2014 Standards, 3C10) Adequate Loraina Roberto " passive cigarette smoke exposure No Loraina Roberto " Exercise Program Referral T Loraina Roberto " Weight Management Counseling Provided T Mamtaa Roberto " Nutrition intervention T Mamtaa Roberto time of call 01/09/2019 9:58 AM Meghan Contreras smoking, advice to quit Yes Paula Norman " Exercise Program Referral T Paula Norman " Weight Management Counseling Provided T Paula Norman " Nutrition intervention T Paula Norman " social history reviewed E&M reviewed today Cathy Quintanilla " sexual orientation Heterosexual Cathy Quintanilla " is there any chance that you could be ? No Cathy Quintanilla " assessment of health literacy ([facility] 2014 Standards, 3C10) Adequate Cathy Quintanilla " passive cigarette smoke exposure No Cathy Dwight " smoking status current every day smoker Cathy Dwight time of call 10/25/2018 9:14 AM Angle Avila social history reviewed E&M reviewed today Jennifer Malin " drug use, illicit Never Aamir Manning " alcohol use Never Aamir Manning " Occupation #[employer] Aamir Manning " sexual orientation Heterosexual Aamir Manning " assessment of health literacy ([facility] 2014 Standards, 3C10) Adequate Aamir Manning " passive cigarette smoke exposure No Aamir Manning " smoking status current every day smoker Aamir Manning Exercise Program Referral Chelsey Rizzo " Weight Management Counseling Provided Chelsey Rizzo " Nutrition intervention Chelsey Rizzo " is there any chance that you could be ? No Zachary Eileen " passive cigarette smoke exposure No Zachary Eileen " smoking status current every day smoker Zachary Eileen " alcohol use Never Zachary Eileen " drug use, illicit Never Zachary Eileen " social history reviewed E&M reviewed today Zachary Eileen drug use, illicit Never Osseo Anisa " alcohol use Never Savanna Anisa " social history reviewed E&M reviewed today Osseo Anisa " passive cigarette smoke exposure No Osseo Anisa " smoking status current every day smoker Savanna Anisa " Exercise Program Referral T Osseo Anisa " Weight Management Counseling Provided T Osseo Anisa " Nutrition intervention T Osseo Anisa Exercise Program Referral T Jessica Herbert " Weight Management Counseling Provided T Jessica Herbert " Nutrition intervention T Jessica Herbert " drug use, illicit Never Aydee Quach " alcohol use Never Channrohan Quach " is there any chance that you could be ? No Channin Main " smoking status current every day smoker Channin Main Exercise Program Referral Chelsey Rizzo " Weight [...] reviewed E&M reviewed today Steve Archuleta " cigarettes, number smoked per day 1-4 Nazjely Geremias " smoking status current every day smoker Nalexlucian Archuleta " passive cigarette smoke exposure No Steve Archuleta " is there any chance that you could be ? No Steve Archuleta Exercise Program Referral Chelsey Rizzo " Weight Management Counseling Provided Chelsey Rizzo " Nutrition intervention Chelsey Rizzo " drug use, illicit Never Mag Son " alcohol use Never Mag Son " social history reviewed E&M reviewed today Mag Son " is there any chance that you could be ? No Mag Son " cigarettes, number smoked per day 4-5 Magsyed Cartagenas " passive cigarette smoke exposure No Mag Osn " smoking status current every day smoker Mag Cartagenas Exercise Program Referral Chelsey Rizzo " Weight [...] and person Paula Norman " assessment of judgment and insight E&M intact Paula Norman " assessment of mood and affect E&M no depression, anxiety, or agitation Paula Norman " Generalized Anxiety Disorder Questionnaire - Question 2 0 Co Юлия Bennett " Generalized Anxiety Disorder Questionnaire - Question 1 0 Co Юлия Steinbergrachel mental status examination: recall E&M intact for [...] Questionnaire - Question 1 0 Co Юлия Sabrina assessment of judgment and insight E&M intact [...] affect without agitation Ramiro Payam O'Isidro " mental status examination: orientation E&M oriented to time, place, and person Ramiro Payam O'Isidro " assessment of judgment and insight E&M [...] insight E&M intact Ramiro Payam O'Isidro " mental status examination: orientation E&M oriented to time, place, and person Ramiro Payam O'Isidro " assessment of mood and affect E&M Appropriate affect without agitation Ramiro Payam O'Isidro " Generalized Anxiety Disorder Questionnaire - Question 2 0 Zachary Arellano " Generalized Anxiety Disorder Questionnaire - Question 1 0 Zachary Arellano assessment of judgment and insight E&M intact Ramiro Payam O'Isidro " mental status examination: orientation E&M oriented to time, place, and person Ramiro Payam O'Isidro " assessment of mood and affect E&M Appropriate affect without agitation Ramiro Payam O'Isidro " Generalized Anxiety Disorder Questionnaire - Question 2 0 Zachary Arellano " Generalized Anxiety Disorder Questionnaire - Question 1 0 Zachary Arellano assessment of judgment and insight E&M intact Ramiro Payam O'Isidro " mental status examination: orientation E&M oriented to time, place, and person Ramiro Payam O'Isidro " assessment of mood and affect [...] judgment and insight E&M intact Ramiro Hare ONicky " assessment of mood and affect E&M [...] judgment and insight E&M intact Ramiro Hare ONicky " assessment of mood and affect E&M no depression, anxiety, or agitation Ramiro Rizzo " Generalized Anxiety Disorder Questionnaire - Question 2 0 Zachary Arellano " Generalized Anxiety Disorder Questionnaire - Question 1 0 Zachary Arellano assessment of judgment and insight E&M intact Ramiro Hare ONicky " assessment of mood and affect E&M [...] Questionnaire - Question 1 0 Zachary Arellano MEDICAL EQUIPMENT No Information Available FAMILY HISTORY No Information Available INSURANCE PROVIDERS Payer name Policy type / Coverage type Covered green party ID Sliding 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 [id number] [facility] 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 [id number] Sliding 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 [id number] Sliding 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 [employer] Other FAMILY PLANNING*TITLE V Medicaid BCBS OF [facility] [id number] Sliding Fee Scale 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 [id number] Family Planning/WHFPT Medicaid [id number] [employer] Other [id number] ADVANCE DIRECTIVES Name Date DISCUSSED - NO [...] Dental - Internal Nephrology - Adult - [facility] INFLUENZA VACCINE QUADRIVALENT 3 YRS PLUS IM Admin of Vaccine - Injection - 1 Est Patient Detailed - 40410 Nephrology - Adult - [facility] Est Patient Detailed - 26149 Ofc Vst, Est Level IV Glucose Stick Prescription Assistance (Non-HIV) Ofc Vst, Est Level IV Vision Diabetes Education Endocrinology - Adult - [facility] Est Patient Detailed - 22340 Est Patient Well Exam (40 - 64 Yrs) - 19090 Pneumovax Vaccine PPSV23 Admin of Vaccine - Injection - 1 Est Patient Detailed - 58748 Prevnar (PCV13) IM TDAP Admin of Vaccine - Injection - Each Add'l Admin of Vaccine - Injection - 1 Est Patient Detailed - 49252 Est Patient Exp Problem - 89884 Est Patient Exp Problem - 60952 Est Patient Exp Problem - 80295 Est Patient Problem Focus - 20113 Glucose Stick Est Patient Exp Problem - 87100 Glucose Stick Venipuncture Handling of specimen for transfer New Patient Comprehensive - 84811 HISTORY OF PROCEDURES Procedure Date Procedure Name Provider Procedure Notes Status Glucose Stick Jessica Herbert completed Glucose Stick Ramiro Rizzo completed Glucose Stick Ramiro Rizzo completed Venipuncture Ramiro Rizzo completed GOALS No Information Available HEALTH CONCERNS No Information Available
--- OUTSIDE RECORDS SUMMARY | 2019-10-07 22:50 | XMS REPORT ---
Author Author Admin, [place] Organization Unknown Address Unknown Phone Unavailable PROBLEMS [...] Diagnosis - Ambulatory Encounter Paula Norman LinkLogic [facility] Adult Medicine UNK - Ambulatory Encounter Paula Norman [facility] Adult Medicine UNK - Ambulatory Encounter Paula Norman [place] Юлия Bennett [facility] Adult Medicine UNK - Ambulatory Encounter Paula Norman Co Юлия Bennett [facility] Adult Medicine UNK - Ambulatory Encounter Paula Norman [facility] Adult Medicine UNK - Ambulatory Encounter Paula Norman [facility] Adult Medicine UNK - Ambulatory Encounter Paula Norman Radha [place] Юлия Steinbergxjone [facility] Adult Medicine Diabetes mellitus, type IIMedication, long-term useAllergic rhinitis, seasonalRash and other nonspecific skin eruptionBurn, 10-19% BSA, L great toe - Ambulatory Encounter Co Юлия Bennett [facility] Adult Medicine UNK - Ambulatory Encounter Paula Norman Peyton Orr MedAdherence, Rebecca Aguilar [place] UNK - Ambulatory Encounter Jessica Herbert [facility] Adult Medicine UNK - Ambulatory Encounter Paula Norman [facility] Adult Medicine UNK - Ambulatory Encounter Beth Greene [facility] Adult Medicine UNK - Ambulatory Encounter Beth Norman [facility] Adult Medicine UNK - Ambulatory Encounter Paula Norman [employer] Adult Medicine UNK - Ambulatory Encounter Paula Norman [facility] LM Adult Medicine UNK - Ambulatory Encounter Ellajay Herbert [facility] Adult Medicine UNK - Ambulatory Encounter Ellajay Archuleta [facility] Adult Medicine UNK - Ambulatory Encounter Paula Norman [facility] Adult Medicine UNK - Ambulatory Encounter Paula Norman [facility] Adult Medicine UNK - Ambulatory Encounter Paula Norman John Mejia [facility] Adult Medicine Allergic rhinitis, seasonalRash and other nonspecific skin eruption - Ambulatory Encounter Paula Norman Steve Espinosa [facility] Adult Medicine UNK - Ambulatory Encounter Paula Norman [employer] Adult Medicine UNK - Ambulatory Encounter Paula Norman [employer] Adult Medicine UNK - Ambulatory Encounter Jessica Herbert [employer] Adult Medicine UNK - Ambulatory Encounter Anh Samayoa [facility] Adult Medicine UNK - Ambulatory Encounter [facility] UNK - Ambulatory Encounter Steve Archuleta [facility] Adult Medicine UNK - [facility] - Ambulatory Encounter Paula Norman LM Adult Medicine UNK - Ambulatory Encounter Paula Norman Cathy Archuleta [facility] Adult Medicine UNK - Ambulatory Encounter Jessica Herbert [facility] Adult Medicine UNK - Ambulatory Encounter Angle Avila [facility] Services UNK - Ambulatory Encounter [place] Anh Samayoa [facility] Adult Medicine UNK - Ambulatory Encounter Anh Samayoa [facility] Adult Medicine UNK - Ambulatory [facility] - Ambulatory Encounter Jose Armando Gonzalez [facility] Adult Medicine UNK - Amb[facility] - Ambulatory Encounter Aamir Manning [facility] Adult Medicine UNK - Ambulatory Encounter Fax Status [facility] Services UNK - Ambulatory Encounter Fax Status [facility] Services UNK - Ambulatory Encounter Jennifer Manning [facility] Adult Medicine UNK - Ambulatory Encounter [facility] - Ambulatory Encounter Fax Status [facility] UNK - Ambulatory Encounter [facility] UNK - Ambulatory Encounter Jennifer Manning [facility] Adult Medicine UNK - Ambulatory Encounter Jennifer Malin [facility] Adult Medicine UNK - Ambulatory Encounter Jennifer Malin [facility] Adult Medicine UNK - Ambulatory Encounter Jennifer Manning [facility] Adult Medicine OverweightBMI 31.0-31.9Tobacco useObesityMedication, long-term useLiver function abnormality - Ambulatory Encounter Lilo Amaro [facility] Adult Medicine UNK - Ambulatory Encounter Steve Archuleta [facility] Adult Medicine UNK - Ambulatory Encounter Ramiro Friend'Isidro Friend'Isidro Samayoa [facility] Adult Medicine Microalbuminuria - Ambulatory Encounter Ramiro Friend'Isidro Hare O'Isidro [facility] Adult Medicine UNK - Ambulatory Encounter Ramiro Friend'Isidro Friend'Isidro [facility] Adult Medicine UNK - Ambulatory Encounter Ramiro Hare O'Isidro Hare O'Isidro Zachary Eileen [facility] Adult Medicine HyperlipidemiaBMI 29.0- 29.9BMI 31.0-31.9 - Ambulatory Encounter Rinjay Herbert [employer] Adult Medicine UNK - Ambulatory Encounter Ana Laura Escobedo [facility] Vision UNK - Ambulatory Encounter Alice Malagon [facility] UNK - Ambulatory Encounter Janice Villalpando [facility] Wage Analyst UNK - Ambulatory Encounter Rinal Herbert Savanna Lange [facility] Adult Medicine UNK - Ambulatory Encounter Rinal Herbert [facility] Adult Medicine UNK - Ambulatory Encounter Rinal Herbert Aleja Gomez Anisa [facility] Adult Medicine UNK - Ambulatory Encounter Rinal Herbert [employer] [facility] Adult Medicine UNK - Ambulatory Encounter Rinal Herbert [facility] LM Adult Medicine UNK - Ambulatory Encounter Rinal Herbert [facility] LM Adult Medicine UNK - Ambulatory Encounter Rinjay Herbert LM Adult Medicine UNK - Ambulatory Encounter Rinjay Herbert [facility] LM Adult Medicine UNK - Ambulatory Encounter Sagrariodaniela Archuleta [facility] Adult Medicine UNK - Ambulatory Encounter Rinjay Herbert LM Adult Medicine UNK - Ambulatory Encounter Rinal Keon Escobedo [facility] Adult Medicine UNK - Ambulatory Encounter Beth Greene [facility] Adult Medicine UNK - Ambulatory Encounter Ramiro Greene [facility] Adult Medicine UNK - Ambulatory Encounter Ramiro Rizzo [facility] Adult Medicine UNK - Ambulatory Encounter Ramiro Rizzo [employer] [facility] Adult Medicine UNK - Ambulatory Encounter Ramiro Rizzo [facility] Adult Medicine UNK - Ambulatory Encounter Ramiro Rizzo [facility] Adult Medicine UNK - Ambulatory Encounter Ramiro Rizzo [facility] Adult Medicine UNK - Ambulatory Encounter Ramiro Sharma [facility] Adult Medicine Immunization updatePreventive health careColorectal screeningProstate Cancer, Screening - Ambulatory Encounter Ramiro Guerra [facility] Adult Medicine UNK - Ambulatory Encounter Ramiro Hare O'Isidro Hare O'Isidro [facility] UNK - Ambulatory Encounter Ramiro Friend'Isidro [facility] - Ambulatory Encounter Ramiro Hare O'Isidro [facility] UNK - Ambulatory Encounter Ramiro Hare O'Isidro [facility] - Ambulatory Encounter Fax Status [facility] Services UNK - Ambulatory Encounter Fax Status [facility] UNK - Ambulatory [facility]counter [facility] - Ambulatory Encounter Ramiro Friend'Isidro Hare O'Isidro [facility] Adult Medicine UNK - Ambulatory Encounter Ramiro Hare O'Isidro Hare O'Isidrojay Livingston [facility] Adult Medicine BMI 32.0-32.9Candidal balanitisBMI 29.0-29.9Preventive health carePeripheral vascular insufficiencyColorectal screeningProstate Cancer, Screening - Ambulatory Encounter Ramiro Friend'Isidro Hare O'Isidro [employer] Adult Medicine UNK - Ambulatory Encounter Ramiro Hare O'Isidro Hare O'Isidro [employer] [facility] Adult Medicine UNK - Ambulatory Encounter Lacey Hall [facility] Dental UNK - Ambulatory Encounter Ramiro Hare O'Isidro Hare O'Isidrojay Jones [facility] Services [facility] UNK - Ambulatory Encounter Ramiro Hare O'Isidrojay Rizzo [facility] Adult Medicine UNK - Ambulatory Encounter Ramiro Loveon Eileen [facility] Adult Medicine BronchitisCandidal balanitisImmunization update - Ambulatory Encounter Mag Son [facility] Adult Medicine UNK - Ambulatory Encounter Ramiro Guerra [facility] Adult Medicine UNK - Ambulatory Encounter Ramiro Rizzo [facility] Adult Medicine UNK - Ambulatory Encounter Ramiro Rizzo [facility] Adult Medicine UNK - Ambulatory Encounter Ramiro Rizzo [facility] Adult Medicine UNK - Ambulatory Encounter Ramiro Archuleta [facility] Adult Medicine BMI 32.0-32.9Bronchitis - Ambulatory Encounter Ramiro Rizzo [facility] Adult Medicine UNK - Ambulatory Encounter Ramiro Rizzo [facility] Adult Medicine UNK - Ambulatory Encounter Ramiro Son [facility] Adult Medicine Helicobacter pylori gastrointestinal tract infectionVaccination Against Influenza - Ambulatory Encounter Florencio Givens [facility] Adult Medicine UNK - Ambulatory Encounter Anna Connell [facility] Adult Medicine UNK - Ambulatory Encounter Anna JacobsenLogic [facility] Adult Medicine UNK - Ambulatory Encounter [facility] UNK - Ambulatory Encounter Av Tinajero [facility] Adult Medicine UNK - Ambulatory Encounter Ramiro [...] Medicine UNK - Ambulatory Encounter Ramiro Arellano [facility] Adult Medicine UNK - Ambulatory Encounter Ramiro Rizzo [employer] [facility] Adult Medicine UNK - Ambulatory Encounter Ramiro Rizzo [facility] Adult Medicine Diabetes mellitus, type IIErectile dysfunctionHyperlipidemiaHelicobacter pylori gastrointestinal tract infectionVitamin D deficiency - Ambulatory Encounter Ramiro Rizzo [employer] Adult Medicine UNK - [facility] - Ambulatory Encounter Yuri [facility] Adult Medicine UNK - Ambulatory Encounter Ramiro Rizzo [facility] Adult Medicine UNK - Ambulatory Encounter Ramiro Loveon [facility] Adult Medicine OverweightHypertensionDiabetes mellitus, type IIAbdominal pain, left upper quadrantHx of syncopeErectile dysfunctionDiabetic peripheral neuropathy - Ambulatory Encounter Ramiro Rizzo [facility] UNK - Ambulatory Encounter Av Tinajero [facility] Adult Medicine UNK - Ambulatory Encounter Av Tinajero [facility] Adult Medicine UNK VITAL SIGNS No Information [...] 1.005-1.030 blood glucose, random 144 mg/dL Co [facility] blood glucose, random 198 mg/dL [facility] hemoglobin A1C, blood, as % of [...] " mean corpuscular volume, RBC 94 fL [facility] 79-97 " hematocrit, blood 40.9 % LinkLog 37.5-51.0 " hemoglobin, blood 13.9 g/dL LinkLog 12.6-17.7 " erythrocyte (RBC) count 4.36 X10E6/UL [facility] 4.14-5.80 " leukocyte count, blood 8.2 X10E3/UL LinkLog 3.4-10.8 blood glucose, random 120 mg/dL [facility] blood glucose, random 200 mg/dL [facility] Quantiferon Gold TB blood test for tuberculosis screening Negative LinkLogic Negative " hepatitis B surface antigen Negative [facility] Negative " lipase, serum 38 U/L LinkLog 0-59 " amylase, serum 44 1/L [facility] 31-124 " thyroid stimulating hormone, serum 2.240 u[iU]/mL [facility] 0.450-4.500 " hepatitis C antibody, serum 0.1 Link[facility]ic 0.0-0.9 " HIV-CMIA (Chemiluminescent Microparticle Immuno Assay) Non Reactive LinkLogic Non Reactive " vitamin D 25-hydroxy, serum 22.1 ng/mL [facility] 30.0-100.0 Low " rapid plasma reagin antibody, [...] Moxey " assessment of health literacy ([facility] 2014 Standards, 3C10) Adequate Co Юлия Moxey [...] Юлия Moxey " assessment of health literacy ([facility] 2014 Standards, 3C10) Adequate Co Юлия Moxey [...] Steve Archuleta " assessment of health literacy ([facility] 2014 Standards, 3C10) Adequate Nadaniela Archuleta " [...] Lormarilee Mejia " assessment of health literacy ([facility] 2014 Standards, 3C10) Adequate Loraina Roberto " [...] Cathy Quintanilla " assessment of health literacy ([facility] 2014 Standards, 3C10) Adequate Cathy Quintanilla " passive cigarette smoke exposure No Cathy Dwight " smoking status current every day smoker Cathy Dwight time of call 10/25/2018 9:14 AM Angle Avila social history reviewed E&M reviewed today Jennifer Malin " drug use, illicit Never Aamir Manning " alcohol use Never Aamir Manning " Occupation #1 [employer] Aamir Manning " sexual orientation Heterosexual Aamir Amnning " assessment of health literacy ([facility] 2014 Standards, 3C10) Adequate Aamir Manning [...] today Zachary Eileen drug use, illicit Never Reading Anisa " alcohol use Never Savanna Anisa " social history reviewed E&M reviewed today Reading Anisa " passive cigarette smoke exposure No Reading Anisa " smoking status current every day smoker Savanna Anisa " Exercise Program Referral T Reading Anisa " Weight Management Counseling Provided T Reading Anisa " Nutrition intervention T Reading Anisa Exercise Program Referral T Jessica Herbert [...] affect E&M no depression, anxiety, or agitation Palua Norman " Generalized Anxiety Disorder Questionnaire - Question 2 0 Cathy Quintanilla " Generalized Anxiety Disorder Questionnaire - Question 1 0 Cathy Quintanilla assessment of judgment and insight E&M intact Jennifer Kiom " mental status examination: orientation E&M oriented [...] Disorder Questionnaire - Question 2 0 Savanna Lnage " Generalized Anxiety Disorder Questionnaire - Question [...] type / Coverage type Covered libertarian ID Sliding 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 [id number] [facility] 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 [id number] Sliding 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 [id number] Sliding 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 [employer] Other FAMILY PLANNING*TITLE V Medicaid BCBS OF [facility] [id number] Sliding Fee Scale 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 [id number] Family Planning/WHFPT Medicaid [id number] [employer] Other [id number] ADVANCE DIRECTIVES Name Date DISCUSSED - NO [...] Dental - Internal Nephrology - Adult - [facility] INFLUENZA VACCINE QUADRIVALENT 3 YRS PLUS IM Admin of Vaccine - Injection - 1 Est Patient Detailed - 71435 Nephrology - Adult - [facility] Est Patient Detailed - 62054 Ofc Vst, Est Level IV Glucose Stick Prescription Assistance (Non-HIV) Ofc Vst, Est Level IV Vision Diabetes Education Endocrinology - Adult - [facility] Est Patient Detailed - 65341 Est Patient Well Exam (40 - 64 Yrs) - 62973 Pneumovax Vaccine PPSV23 Admin of Vaccine - Injection - 1 Est Patient Detailed - 41319 Prevnar (PCV13) IM TDAP Admin of Vaccine - Injection - Each Add'l Admin of Vaccine - Injection - 1 Est Patient Detailed - 78523 Est Patient Exp Problem - 00092 Est Patient Exp Problem - 16004 Est Patient Exp Problem - 28653 Est Patient Problem Focus - 80996 Glucose Stick Est Patient Exp Problem - 99431 Glucose Stick Venipuncture Handling of specimen for transfer New Patient Comprehensive - 81872 HISTORY OF PROCEDURES Procedure Date Procedure Name Provider Procedure Notes Status Glucose Stick Jessica Herbert completed Glucose Stick Ramiro Rizzo completed Glucose Stick Ramiro Rizzo completed Venipuncture Ramiro Rizzo completed GOALS No Information Available HEALTH CONCERNS No Information Available
--- OUTSIDE RECORDS SUMMARY | 2019-10-07 22:51 | XMS REPORT ---
Author Author Admin, [place] Organization Unknown Address Unknown Phone Unavailable PROBLEMS Condition Status Date Provider Notes Asymptomatic microscopic hematuria active Paula Norman Burn, 10-19% BSA, L great toe active Paula Norman Rash and other nonspecific skin eruption completed - Paula Norman Allergic rhinitis, seasonal completed - Paula Norman Liver function abnormality active Jennifer Malin Medication, [...] Location Encounter Diagnosis - Ambulatory Encounter Paula Castroparmalina Castropard [facility] [place] [facility] Asymptomatic microscopic hematuria - Ambulatory Encounter Paula Norman [facility] Adult Medicine UNK - Ambulatory Encounter Paula Castropard [facility] Adult Medicine UNK - Ambulatory Encounter Paula Norman [facility] UNK - Ambulatory Encounter Paula Norman Jessica Herbert Co Юлия Bennett [facility] UNK - Ambulatory Encounter Paula Norman Juan Luis Bennett [facility] UNK - Ambulatory Encounter Paula Castropard [facility] UNK - Ambulatory Encounter Paula Norman [facility] UNK - Ambulatory Encounter Paula Norman Radha Livingston Co Юлия Steinbergxjone [facility] Diabetes mellitus, type IIMedication, long-term useAllergic rhinitis, seasonalRash and other nonspecific skin eruptionBurn, 10-19% BSA, L great toe - Ambulatory Encounter Co Юлия Bennett [facility] UNK - Ambulatory Encounter [facility] Castroelisa [facility] UN[facility] - Ambulatory Encounter [facility] Herbert [facility] Adult Medicine UNK - Ambulatory Encounter Paula Norman [facility] Adult Medicine UNK - Ambulatory Encounter Beth Greene [facility] Adult Medicine UNK - Ambulatory Encounter Beth Norman [facility] Adult Medicine UNK - Ambulatory Encounter Paula Norman [facility] Adult Medicine UNK - Ambulatory Encounter Paula Norman [facility] Adult Medicine UNK - Ambulatory Encounter Jessica Herbert [facility] Adult Medicine UNK - Ambulatory Encounter Ellajay Herbert Steve Archuleta [facility] Adult Medicine UNK - Ambulatory Encounter Paula Norman [facility] Adult Medicine UNK - Ambulatory Encounter Paula Norman [facility] Adult Medicine UNK - Ambulatory Encounter Paula Norman John Mejia [facility] Allergic rhinitis, seasonalRash and other nonspecific skin eruption - Ambulatory Encounter Paula Norman Steve Espinosa [facility] Adult Medicine UNK - Ambulatory Encounter Paula Norman [facility] Adult [facility] UNK - Ambulatory Encounter Paula Norman [facility] Adult Medicine UNK - Ambulatory Encounter Ellajay Nortonel [facility] Adult Medicine UNK - Ambulatory Encounter Anh Samayoa [facility] UNK - Ambulatory Encounter Linda Contreras [facility] UNK - Ambulatory Encounter Steve Archuleta [facility] Medicine UNK - Ambulatory Encounter Ramiro Bishop MedAdherence [facility] Medicine UNK - Ambulatory Encounter Paula Norman [facility] Medicine UNK - Ambulatory Encounter Paula Norman Cathy Archuleta [facility] UNK - Ambulatory Encounter Jessica Herbert [facility] Medicine UNK - Ambulatory Encounter Angle Avila [facility] UNK - Ambulatory Encounter New Kamara Yao [facility] Medicine UNK - Ambulatory Encounter Anh Samayoa [facility] Medicine UNK - Ambulatory Encounter Ramiro Rizzo LinkLogic [facility] Medicine UNK - Ambulatory Encounter Jose Armando Gonzalez [facility] Medicine UNK - Ambulatory Encounter Jennifer Malin [facility] Adult Medicine UNK - Ambulatory Encounter Aamir Manning [facility] Medicine UNK - Ambulatory Encounter Fax Status [facility] UNK - Ambulatory Encounter [facility] - Ambulatory Encounter Jennifer Tejedao [facility] Medicine UNK - Ambulatory Encounter Fax Status LinkLogic [facility] Services UNK - Ambulatory Encounter F[facility] UNK - Ambulatory Encounter Fax Status [facility] UNK - Ambulatory Encounter Jennifer Manning [facility] Medicine UNK - Ambulatory Encounter Jennifer Malin [facility] UNK - Ambulatory Encounter Jennifer Malin [facility] UNK - Ambulatory Encounter [facility] OverweightBMI 31.0-31.9Tobacco useObesityMedication, long-term useLiver function abnormality - Ambulatory Encounter Lilo Amaro [facility] UNK - Ambulatory Encounter Steve Archuleta [facility] UNK - Ambulatory Encounter Ramiro Samayoa [facility] Medicine Microalbuminuria - Ambulatory Encounter Ramiro Rizzo [facility] Adult Medicine UNK - Ambulatory Encounter Ramiro Rizzo [facility] Adult Medicine UNK - Ambulatory Encounter Ramiro Sharma Eileen [facility] Adult Medicine HyperlipidemiaBMI 29.0- 29.9BMI 31.0-31.9 - Ambulatory Encounter Jessica Herbert LinkLogduy [facility] UNK - Ambulatory Encounter Ana Laura Escobedo [facility] Vision UNK - Ambulatory Encounter Alice Malagon [facility] UNK - Ambulatory Encounter Janice Villalpando [facility] Sustainable Development Policy Analyst UNK - Ambulatory Encounter Jessica Lange [facility] Medicine UNK - Ambulatory Encounter Rinal Herbert [facility] Adult [facility] UNK - Ambulatory Encounter Rinal Herbert Aleja Mckeon [facility] Adult [facility] UNK - Ambulatory Encounter Rinal Herbert [facility] UNK - Ambulatory Encounter Rinal Herbert [facility] Adult [facility] UNK - Ambulatory Encounter Rinal Herbert [facility] Adult [facility] UNK - Ambulatory Encounter Rinal Herbert [facility] Adult Medicine UNK - Ambulatory Encounter Rinal Herbert [facility] Adult [facility] UNK - Ambulatory Encounter Josettelucian Geremias [facility] Adult [facility] UNK - Ambulatory Encounter Rinal Herbert [facility] Adult Medicine UNK - Ambulatory Encounter Rinal Herbert Aydee Escobedo [facility] Medicine UNK - Ambulatory Encounter Beth Jc [facility] Medicine UNK - Ambulatory Encounter Ramiro Mitchellhemi Jc [facility] Medicine UNK - Ambulatory Encounter [facility] - Ambulatory Encounter Ramiro Rizzo [facility] Adult Medicine UNK - Ambulatory Encounter Ramiro Rizzo [facility] Adult Medicine UNK - Ambulatory Encounter Ramiro Rizzo [facility] Adult Medicine UNK - Ambulatory Encounter Ramiro Rizzo [facility] Adult Medicine UNK - Ambulatory Encounter Ramiro Arellano [facility] Adult Medicine Immunization updatePreventive health careColorectal screeningProstate Cancer, Screening - Ambulatory Encounter Ramiro Guerra [facility] UNK - Ambulatory Encounter Ramiro Rizzo [facility] UNK - Ambulatory Encounter Ramiro Rizzo [facility] Adult Medicine UNK - Ambulatory Encounter Ramiro Rizzo [facility] Adult Medicine UNK - Ambulatory Encounter Ramiro Rizzo [facility] Adult Medicine UNK - Ambulatory Encounter [facility] - Ambulatory Encounter Fax [facility] UNK - Ambulatory Encounter Fax Status [facility] UNK - Ambulatory Encounter Ramiro Rizzo [facility] Adult Medicine UNK - Ambulatory Encounter Ramiro Livingston [facility] Adult Medicine BMI 32.0-32.9Candidal balanitisBMI 29.0-29.9Preventive health carePeripheral vascular insufficiencyColorectal screeningProstate Cancer, Screening - Ambulatory Encounter [facility]ro [facility] UN[facility] - Ambulatory Encounter Ramiro Rizzo [facility] UNK - Ambulatory Encounter Lacey Hall [facility] Dental UNK - Ambulatory Encounter Ramiro Friend'Isidro Hare O'Isidro Gomezesias Karen Acuña [facility] UNK - Ambulatory Encounter Ramiro Friend'Isidro Friend'Isidro [facility] Adult Medicine UNK - Ambulatory Encounter Ramiro Friend'Isidro Hare O'Isidro Loveon Eileen [facility] BronchitisCandidal balanitisImmunization update - Ambulatory Encounter Mag Son [facility] Medicine UNK - Ambulatory Encounter Ramiro Friend'Isidro Friend'Isidro Guerra [facility] Medicine UNK - Ambulatory Encounter Ramiro Friend'Isidro Hare O'Isidro [facility] Medicine UNK - Ambulatory Encounter Ramiro Friend'Isidro Hare O'Isidro [facility] UNK - Ambulatory Encounter Ramiro Firend'Isidro Friend'Isidro [facility] UNK - Ambulatory Encounter Ramiro Friend'Isidro Hare O'Isidro Finchlucian Geremias [facility] BMI 32.0-32.9Bronchitis - Ambulatory Encounter Ramiro Friend'Isidro Friend'Isidro [facility] UNK - Ambulatory Encounter Ramiro Friend'Isidro Friend'Isidro [facility] Medicine UNK - Ambulatory Encounter Ramiro Friend'Isidro Friend'Isidro Son [facility] Helicobacter pylori gastrointestinal tract infectionVaccination Against Influenza - Ambulatory Encounter Florencio Givens [facility] Medicine UNK - Ambulatory Encounter Anna Connell [facility] Medicine UNK - Ambulatory Encounter Anna R Ko [facility] Adult [facility] UNK - Ambulatory Encounter Ramiro Hare O'Isidro Hare O'Isidro [facility] Adult [facility] UNK - Ambulatory Encounter Av Pittsada [facility] Adult Medicine UNK - Ambulatory Encounter Rmairo Hare O'Isidro Hare O'Isidro [facility] Adult Medicine [...] Medicine UNK - Ambulatory Encounter Ramiro Rizzo [facility] Medicine UNK - Ambulatory Encounter Ramiro Rizzo [facility] Medicine UNK - Ambulatory Encounter Ramiro Rizzo [facility] Medicine UNK - Ambulatory Encounter Ramiro Arellano [facility] Medicine UNK - Ambulatory Encounter Ramiro Rizzo LinkLogic [facility] Medicine UNK - Ambulatory Encounter Ramiro Rizzo [facility] Diabetes mellitus, type IIErectile dysfunctionHyperlipidemiaHelicobacter pylori gastrointestinal tract infectionVitamin D deficiency - Ambulatory Encounter [facility]ro [facility]izzo [facility] UNK - Ambulatory Encounter Yuri Derek [facility] UNK - Ambulatory Encounter Yuri Derek [facility] Medicine UNK - Ambulatory Encounter Ramiro Rizzo [facility] UNK - Ambulatory Encounter Ramiro Sharma Eileen [facility] Adult [facility] OverweightHypertensionDiabetes mellitus, type IIAbdominal pain, left upper quadrantHx of syncopeErectile dysfunctionDiabetic peripheral neuropathy - Ambulatory Encounter Ramiro Rizzo [facility] UNK - Ambulatory Encounter Av Tinajero [facility] UNK - Ambulatory Encounter Av Tinajero [facility] UNK VITAL SIGNS No Information [...] 1.005-1.030 blood glucose, random 144 mg/dL Co Юлия Bennett blood glucose, random 198 mg/dL Co Юлия [...] " mean corpuscular volume, RBC 94 fL LinkLogic 79-97 " hematocrit, blood 40.9 % [facility]Logic 37.5-51.0 " hemoglobin, blood 13.9 g/dL [facility] 12.6-17.7 " erythrocyte (RBC) count 4.36 X10E6/UL [facility] 4.14-5.80 " leukocyte count, blood 8.2 X10E3/UL [facility] 3.4-10.8 blood glucose, random 120 mg/dL [facility] blood glucose, random 200 mg/dL [facility] Quantiferon Gold TB blood test for [...] as percent of blood leukocytes 60 % LinkLog " platelet count 332 X10E3/UL LinkLog 150-379 " red blood cell distribution width 13.7 % LinkLog 12.3-15.4 " mean corpuscular hemoglobin concentration, RBC 35.0 G/DL LinkLog 31.5-35.7 " mean corpuscular hemoglobin, RBC 32.0 pg [facility]Logic 26.6-33.0 " mean corpuscular volume, RBC 92 fL LinkLog 79-97 " hematocrit, blood 40.9 % LinkLog 37.5-51.0 " hemoglobin, blood 14.3 g/dL LinkLog 12.6-17.7 " erythrocyte (RBC) count 4.47 X10E6/UL [facility] 4.14-5.80 " leukocyte count, blood 9.5 X10E3/UL [facility] 3.4-10.8 blood glucose, random 218 mg/dL Zachary Arellano HISTORY OF IMMUNIZATIONS No Information Available HISTORY OF MEDICATION USE Medication Instructions Dates Provider Comments MUPIROCIN 2 % EXTERNAL OINTMENT apply 4 times a day as needed Paula Norman AMOXICILLIN-POT CLAVULANATE 875-125 MG ORAL TABLET take 1 tab By Mouth Twice a Day - Paula Norman BD PEN NEEDLE SHORT U/F 31G X 8 MM use for lantus injections [facility] LANTUS SOLOSTAR 100 UNIT/ML SUBCUTANEOUS SOLUTION PEN-INJECTOR [...] nostril every day As Needed - Jennifer BLANCOFED DM 30-2-10 MG/5ML ORAL SYRUP 10 mL [...] Luis Bennett " drug use, illicit Never Juan Luis Bennett " alcohol use Never Juan Luis Bennett " social history reviewed E&M reviewed today Juan Luis Bennett " sexual orientation Heterosexual Juan Luis Bennett " assessment of health literacy ([facility] 2014 Standards, 3C10) Adequate Co Юлия Moxey " passive cigarette smoke exposure Yes Co Юлия Moxey " smoking status current every day smoker Co Юлия Moxey Exercise Program Referral T Co Юлия Moxey " Weight Management Counseling Provided T Co Юлия Moxey " Nutrition intervention T Co Юлия Moxey " drug use, illicit Never Co Юлия Moxey " alcohol use Never Co Юлия Moxey " social history reviewed E&M reviewed today Co Юлия Moxey " sexual orientation Heterosexual Co Юлия Moxey " is there any chance that you could be ? No Co Юлия Moxey " assessment of health literacy ([facility] 2014 Standards, 3C10) Adequate Co Юлия Moxey " passive cigarette smoke exposure Yes Co Юлия Moxey " smoking status current every day smoker Co Юлия Moxey time of call 06/27/2019 10:24 AM Rebecca Browning Exercise Program Referral T Rinjay Herbert " Weight Management Counseling Provided T Jessica Herbert " Nutrition intervention T Rinal Herbert " drug use, illicit Never Steve Archuleta " alcohol use Never Steve Archuleta " social history reviewed E&M reviewed today Steve Archuleta " is there any chance that you could be ? No Nadaniela Archuleta " assessment of health literacy ([facility] 2014 Standards, 3C10) Adequate Steve Archuleta " passive cigarette smoke exposure No Steve Archuleta " smoking status current every day smoker Steve Archuleta smoking, advice to quit Yes Paula Norman " cigarettes, number smoked per day 5-6 Paula Norman " drug use, illicit Never Mamtaa Roberto " alcohol use Never Loraina Roberto " smoking status current every day smoker Mamtaa Roberto " social history reviewed E&M reviewed today John Mejia " assessment of health literacy ([facility] 2014 Standards, 3C10) Adequate John Mejia " passive cigarette smoke exposure No Loraina Roberto " Exercise Program Referral T John Mejia " Weight Management Counseling Provided T John Mejia " Nutrition intervention T John Mejia time of call 01/09/2019 9:58 AM Meghan Contreras smoking, advice to quit Yes Paula Norman " Exercise Program Referral T Paula Castropard " Weight Management Counseling Provided T Paula Castropard " Nutrition intervention T Paula Castropard " social history reviewed E&M reviewed today Cathy Dwight " sexual orientation Heterosexual Cathy Quintanilla " is there any chance that you could be ? No Cathy Dwight " assessment of health literacy ([facility] 2014 Standards, 3C10) Adequate Cathy Quintanilla " passive cigarette smoke exposure No Cathytalya Quintanilla " smoking status current every day smoker Cathy Quintanilla time of call 10/25/2018 9:14 AM Angle Avila social history reviewed E&M reviewed today Jennifer Kimo " drug use, illicit Never Aamir Manning " alcohol use Never Aamir Manning " Occupation #1 [employer] Aamir Manning " sexual orientation Heterosexual Aamir Manning " assessment of health literacy ([facility] 2014 Standards, 3C10) Adequate Aamir Manning " [...] Never Savanna Anisa " alcohol use Never Freedom Anisa " social history reviewed E&M reviewed today Freedom Anisa " passive cigarette smoke exposure No Savanna Anisa " smoking status current every day smoker Freedom Anisa " Exercise Program Referral T Savanna Anisa " Weight Management Counseling Provided T Freedom Anisa " Nutrition intervention T Savanna Anisa Exercise Program Referral T Rinjay Herbert " Weight Management Counseling Provided T Rinjay Herbert " Nutrition intervention T Jessica Herbert " drug use, illicit Never Aydee Quach " alcohol use Never Aydee Quach " is there any chance that you could be ? No Aydee Quach " smoking status current every day smoker Aydee Quach Exercise Program Referral Chelsey Rizzo " Weight [...] intervention Chelsey Rizzo " alcohol use Never Steve Archuleta " drug use, illicit Never Abbely Geremias " social history reviewed E&M reviewed today Steve Archuleta " cigarettes, number smoked per day 1-4 Nadaniela Archuleta " smoking status current every [...] E&M intact for recent and remote events Puala Norman " mental status examination: orientation E&M oriented to time, place, and person Paula Norman " assessment of judgment and insight E&M intact Paula Norman " assessment of mood and affect E&M no depression, anxiety, or agitation Paula Norman " Generalized Anxiety Disorder Questionnaire - Question 2 0 Co Юлия Bennett " Generalized Anxiety Disorder Questionnaire - Question 1 0 Co Юлия Steinbergxjone mental status examination: recall E&M intact for [...] Questionnaire - Question 1 0 Co Юлия Steinbergxey assessment of judgment and insight E&M intact [...] oriented to time, place, and person Jennifer Malin " assessment of mood and affect E&M no depression, anxiety, or agitation Jennifer Malin " Generalized Anxiety Disorder Questionnaire - [...] insight E&M intact Ramiro Payam Rizzo " Generalized Anxiety Disorder [...] judgment and insight E&M intact Ramiro Hare Ronna'Isidro " assessment of mood and affect E&M [...] Disorder Questionnaire - Question 2 0 Zachary Garzais " Generalized Anxiety Disorder Questionnaire - Question 1 0 Zacharyamanda Arellano MEDICAL EQUIPMENT No Information Available FAMILY HISTORY No Information Available INSURANCE PROVIDERS Payer name Policy type / Coverage type Covered libertarian ID Sliding 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 [id number] [facility] 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 GVISP 1 [id number] Sliding 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 [id number] Sliding 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 [employer] Other FAMILY PLANNING*TITLE V Medicaid [facility] [id number] Sliding Fee Scale 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 [id number] Family Planning/WHFPT Medicaid [id number] [employer] Other [id number] ADVANCE DIRECTIVES Name Date DISCUSSED - NO [...] CBC With Differential/Platelet - - - - - Ofc Vst, Est Level IV Ofc Vst, Est Level IV Ofc Vst, Est Level IV Ofc Vst, Est Level IV Ofc Vst, Est Level IV [facility] - Internal Nephrology - Adult - [facility] INFLUENZA VACCINE QUADRIVALENT 3 YRS PLUS IM Admin of Vaccine - Injection - 1 Est Patient Detailed - 55559 Nephrology - Adult - LM Est Patient Detailed - 57727 Ofc Vst, Est Level IV Glucose Stick Prescription Assistance (Non-HIV) Ofc Vst, Est Level IV Vision Diabetes Education Endocrinology - Adult - [facility] Est Patient Detailed - 42207 Est Patient Well Exam (40 - 64 Yrs) - 47913 Pneumovax Vaccine PPSV23 Admin of Vaccine - Injection - 1 Est Patient Detailed - 50181 Prevnar (PCV13) IM TDAP Admin of Vaccine - Injection - Each Add'l Admin of Vaccine - Injection - 1 Est Patient Detailed - 74786 Est Patient Exp Problem - 35301 Est Patient Exp Problem - 03609 Est Patient Exp Problem - 51163 Est Patient Problem Focus - 39397 Glucose Stick Est Patient Exp Problem - 94956 Glucose Stick Venipuncture Handling of specimen for transfer New Patient Comprehensive - 81642 HISTORY OF PROCEDURES Procedure Date Procedure Name Provider Procedure Notes Status Glucose Stick Jessica Herbert completed Glucose Stick Ramiro Rizzo completed Glucose Stick Ramiro Rizzo completed Venipuncture Ramiro Rizzo completed GOALS No Information Available HEALTH CONCERNS No Information Available
--- OUTSIDE RECORDS SUMMARY | 2019-10-07 22:52 | XMS REPORT ---
Author Author Admin, [place] Organization Unknown Address Unknown Phone Unavailable PROBLEMS Condition Status Date Provider Notes CKD stage 4 (gfr 15-29) active Paula Norman Asymptomatic microscopic hematuria active Paula Norman Burn, 10-19% BSA, L great toe active Paula Norman Rash and other nonspecific skin eruption completed - Paula Canalesd Allergic rhinitis, seasonal completed - Paula Norman [...] Location Encounter Diagnosis - Ambulatory Encounter Paula Castropard [facility] Adult Medicine CKD stage 4 (gfr 15-29) - Ambulatory Encounter Paula Castropard [facility] Adult Medicine UNK - Ambulatory Encounter Paula Castropard [facility] Adult Medicine Asymptomatic microscopic hematuria - Ambulatory Encounter Paula Norman [facility] Adult Medicine UNK - Ambulatory Encounter Paula Norman [facility] Adult Medicine UNK - Ambulatory Encounter Paula Norman [facility] Adult Medicine UNK - Ambulatory Encounter Paula Norman Jessica Herbert [place] Юлия Bennett [facility] Adult Medicine UNK - Ambulatory Encounter Paula Castropard Juan Luis Bennett [facility] Adult Medicine UNK - Ambulatory Encounter Paula Norman [facility] Adult Medicine UNK - Ambulatory Encounter Paula Norman [facility] Adult Medicine UNK - Ambulatory Encounter Paula Castropard Radha Livingston [place] Юлия Steinbergrachel [facility] Adult Medicine Diabetes mellitus, type IIMedication, long-term useAllergic rhinitis, seasonalRash and other nonspecific skin eruptionBurn, 10-19% BSA, L great toe - Ambulatory Encounter Juan Luis Bennett [facility] Adult Medicine UNK - Ambulatory Encounter Paula Castropard Paula Castroelisa [facility] Burkett UNK - Ambulatory Encounter Jessica Herbert [facility] Adult Medicine UNK - Ambulatory Encounter Paula Castropard Paula Castropard [facility] Adult Medicine UNK - Ambulatory Encounter Beth Greene [facility] Adult Medicine UNK - Ambulatory Encounter Beth Greene Paula Castropard Paula Castropard [facility] Adult Medicine UNK - Ambulatory Encounter Paula Castropard Paula Castropard Link[facility] Adult Medicine UNK - Ambulatory Encounter Paula Castropard Paula Castropard LinkLogic [facility] Adult Medicine UNK - Ambulatory Encounter Ellajay Keon [facility] Adult Medicine UNK - Ambulatory Encounter Jessica Herbert Steve Archuleta [facility] Adult Medicine UNK - Ambulatory Encounter Paula Canalesd Paula Castropard [facility] Adult Medicine UNK - Ambulatory Encounter Paula Canalsed Paula Castropard [facility] Adult Medicine UNK - Ambulatory Encounter Paula Canalesd Paula Castroelisa Mejia [facility] Adult Medicine Allergic rhinitis, seasonalRash and other nonspecific skin eruption - Ambulatory Encounter Paula Castropard Paula Castroelisa Espinosa [facility] Adult Medicine UNK - Ambulatory Encounter Paula Castropard Paula Castropard Link[facility] Adult Medicine UNK - Ambulatory Encounter Paula Emerson Norman [facility] LM Adult Medicine UNK - Ambulatory Encounter Ellajay Herbert [facility] Adult Medicine UNK - Ambulatory Encounter Anh Yao [facility] Adult Medicine UNK - Ambulatory Encounter Linda Contreras [facility] UNK - Ambulatory Encounter Steve Archuleta [facility] Adult Medicine UNK - Ambulatory Encounter Ramiro Hare O'Isidrojay Hare O'Isidrojay Bishop MedAdherence [facility] Adult Medicine UNK - Ambulatory Encounter Paula Norman [facility] Adult Medicine UNK - Ambulatory Encounter Paula Norman Cathy Archuleta [facility] Adult Medicine UNK - Ambulatory Encounter Jessica Herbert [facility] Adult Medicine UNK - Ambulatory Encounter Angle Avila [facility] Public Health Services UNK - Ambulatory Encounter [place] Anh Yao [facility] Adult Medicine UNK - Ambulatory Encounter Anh Yao [facility] Adult Medicine UNK - Ambulatory Encounter Ramiro Hare O'Isidro LinkLogic [facility] Adult Medicine UNK - Ambulatory Encounter Jose Armando Gonzalez [facility] Adult Medicine UNK - Ambulatory Encounter Jennifer Malin [employer] Adult Medicine UNK - Ambulatory Encounter Aamir Manning [facility] Adult Medicine UNK - Ambulatory Encounter Fax Status [employer] Services UNK - Ambulatory Encounter Fax Status [facility] UNK - Ambulatory Encounter Jennifer Tejedao [facility] Adult Medicine UNK - Ambulatory Encounter [facility] - [facility]ulatory Encounter [facility] UNK - Ambulatory Encounter Jennifer Manning [facility] Adult Medicine UNK - Ambulatory Encounter Jennifer Malin [facility] Adult Medicine UNK - Ambulatory Encounter Jennifer Malin [facility] Adult Medicine UNK - Ambulatory Encounter Jennifer Strickland-Carlos Tejedao [facility] Adult Medicine OverweightBMI 31.0-31.9Tobacco useObesityMedication, long-term useLiver function abnormality - Ambulatory Encounter Lilo Amaro [facility] Adult Medicine UNK - Ambulatory Encounter Steve Archuleta [facility] Adult Medicine UNK - Ambulatory Encounter Ramiro Samayoa [facility] Adult Medicine Microalbuminuria - Ambulatory Encounter Ramiro Rizzo [facility] Adult Medicine UNK - Ambulatory Encounter Ramiro Rizzo [facility] Adult Medicine UNK - Ambulatory Encounter Ramiro Arellano [facility] Adult Medicine HyperlipidemiaBMI 29.0- 29.9BMI 31.0-31.9 - [facility] Adult Medicine UNK - Ambulatory Encounter Ana Laura Escobedo [facility] Vision UNK - Ambulatory Encounter Alice Malagon [facility] Services UNK - Ambulatory Encounter Janice eSrvin Cruz [facility] License Distributor UNK - Ambulatory Encounter Rinal Herbert Lecompte Anisa [facility] Adult Medicine UNK - Ambulatory Encounter Rinal Herbert [facility] Adult Medicine UNK - Ambulatory Encounter Rinal Herbert Aleja Gomez Anisa [facility] Adult Medicine UNK - [...] - Ambulatory Encounter Rinal Herbert Aydee Escobedo [facility] Adult Medicine UNK - Ambulatory Encounter Beth Jc [facility] Adult Medicine UNK - Ambulatory Encounter Ramiro Hare O'Isidro Hare O'Isidro Mitchellhemi Jc [facility] Adult Medicine UNK - Ambulatory Encounter Ramiro Hare O'Isidro Hare O'Isidro [facility] Adult Medicine UNK - Ambulatory Encounter Ramiro Hare O'Isidro Hare O'Isidro [facility] Adult Medicine UNK - Ambulatory Encounter Ramiro Hare O'Isidro Hare O'Isidro [facility] Adult Medicine UNK - Ambulatory Encounter Ramiro Rizzo [facility] Adult Medicine UNK - Ambulatory Encounter Ramiro Rizzo [facility] Adult Medicine UNK - Ambulatory Encounter Ramiro Arellano [facility] Adult Medicine Immunization updatePreventive health careColorectal screeningProstate Cancer, Screening - Ambulatory Encounter Ramiro Guerra [facility] Adult Medicine UNK - Ambulatory Encounter Ramiro Rizzo [facility] UNK - Ambulatory Encounter Ramiro Rizoz [facility] Adult Medicine UNK - Ambulatory Encounter Ramiro Rizzo [facility] Adult Medicine UNK - Ambulatory Encounter Ramiro Rizzo [facility] Adult Medicine UNK - Ambulatory Encounter Fax Status [facility] Services UNK - Ambulatory Encounter [facility] - [facility]ulatory Encounter [facility] UNK - Ambulatory Encounter Ramiro Rizzo [facility] Adult Medicine UNK - Ambulatory Encounter Ramiro Livingston [facility] Adult Medicine BMI 32.0-32.9Candidal balanitisBMI 29.0-29.9Preventive health carePeripheral vascular insufficiencyColorectal screeningProstate Cancer, Screening - Ambulatory Encounter Ramiro Hare O'Isidro Hare O'Isidro LinkLogic [facility] Adult Medicine UNK - Ambulatory Encounter Ramiro Hare O'Isidro Hare O'Isidro [employer]ic [facility] Adult Medicine UNK - Ambulatory Encounter Lacey Landes [facility] Dental UNK - Ambulatory Encounter Ramiro Hare O'Isidro Hare O'Isidro [facility] UNK - Ambulatory Encounter Ramiro Hare O'Isidro Hare O'Isidro [facility] Adult Medicine UNK - Ambulatory Encounter Ramiro Hare O'Isidro Hare O'Isidrojay Arellano [facility] Adult Medicine BronchitisCandidal balanitisImmunization update - Ambulatory Encounter Mag Son [facility] Adult Medicine UNK - Ambulatory Encounter Ramiro Hare O'Isidro Hare O'Isidrojay Guerra [facility] Adult Medicine UNK - Ambulatory Encounter Ramiro Hare O'Isidro Hare O'Isidro [facility] Adult Medicine UNK - Ambulatory Encounter Ramiro Hare O'Isidro Hare O'Isidro [employer] [facility] Adult Medicine UNK - Ambulatory Encounter Ramiro Hare O'Isidro Hare O'Isidro [facility] Adult Medicine UNK - Ambulatory Encounter Ramiro Hare O'Isidro Hare O'Isidro Steve Archuleta [facility] Adult Medicine BMI 32.0-32.9Bronchitis - Ambulatory Encounter Ramiro Hare O'Isidro Hare O'Isidro [facility] Adult Medicine UNK - Ambulatory Encounter Ramiro Hare O'Isidro Hare O'Isidro [facility] Adult Medicine UNK - Ambulatory Encounter Ramiro Hare O'Isidro Hare Matthias Son [facility] Adult Medicine Helicobacter pylori gastrointestinal tract infectionVaccination Against Influenza - Ambulatory Encounter Florenciodenisse Givens [facility] Adult Medicine UNK - Ambulatory Encounter Anna Connell [facility] Adult Medicine UNK - Ambulatory Encounter Anna Connell LinkLogic [facility] Adult Medicine UNK - Ambulatory Encounter Ramiro Friend'Isidro [facility] LM Adult Medicine UNK - Ambulatory Encounter Av Tinajero [facility] Adult Medicine UNK - Ambulatory Encounter Ramiro Friend'Isidro LM Adult Medicine UNK - Ambulatory Encounter Ramiro Friend'Isidro Loveon Eileen [facility] Adult Medicine UNK - Ambulatory Encounter Ramiro Rizzo [facility] Adult Medicine UNK - Ambulatory Encounter Ramiro Rizzo [facility] Adult Medicine UNK - Ambulatory Encounter Ramiro Friend'Isidro [facility] Adult Medicine UNK - Ambulatory Encounter Ramiro Friend'Isidro Zachary Eileen [facility] Adult Medicine Abdominal pain, left upper quadrant - Ambulatory Encounter Ramiro Rizzo [facility] Adult Medicine UNK - Ambulatory Encounter Ramiro Rizzo [facility] Adult Medicine UNK - Ambulatory Encounter Av Tinajero [facility] Adult Medicine UNK - Ambulatory Encounter Ramiro Rizzo LM Adult Medicine UNK - Ambulatory Encounter Ramiro Friend'Isidro Zachray Eileen [facility] Adult Medicine UNK - Ambulatory Encounter Ramiro Rizzo [employer] Adult Medicine UNK - Ambulatory Encounter Ramiro Friend'Isidro Friend'Isidro [facility] Adult Medicine UNK - Ambulatory Encounter Ramiro Friend'Isidro Hare O'Isidro [facility] Adult Medicine UNK - Ambulatory Encounter Ramiro Friend'Isidro Hare O'Isidro [facility] Adult Medicine UNK - Ambulatory Encounter Ramiro Friend'Isidro Friend'Isidro [facility] Adult Medicine UNK - Ambulatory Encounter Ramiro Friend'Isidro Friend'Isidro Sharma [facility] Adult Medicine UNK - Ambulatory Encounter [facility] - Ambulatory Encounter Ramiro Friend'Isidro Friend'Isidro [facility] Adult Medicine Diabetes mellitus, type IIErectile dysfunctionHyperlipidemiaHelicobacter pylori gastrointestinal tract infectionVitamin D deficiency - Ambulatory Encounter Ramiro Friend'Isidro Friend'Isidro [facility] Adult Medicine UNK - Ambulatory Encounter Yuri Derek [facility] Adult Medicine UNK - Ambulatory Encounter Yuri Derek [facility] Adult Medicine UNK - Ambulatory Encounter Ramiro Friend'Isidro Friend'Isidro [facility] Adult Medicine UNK - Ambulatory Encounter Ramiro Friend'Isidro Sharma [facility] Adult Medicine OverweightHypertensionDiabetes mellitus, type IIAbdominal pain, left upper quadrantHx of syncopeErectile dysfunctionDiabetic peripheral neuropathy - Ambulatory Encounter Ramiro Friend'Isidro Friend'Isidro [facility] UNK - Ambulatory Encounter Av Tinajero [facility] Adult Medicine UNK - Ambulatory Encounter Av Tinajero [facility] Adult Medicine UNK VITAL SIGNS No Information Available ALLERGIES Allergy Name Onset Date Reaction Criticality Status NIFEDIPINE Facial swelling High Criticality active CHLORTHALIDONE Facial swelling High Criticality active REASON FOR REFERRAL Start Date - End Date Service - Endocrinology - Adult - CT Scan RESULTS Date Observation Value Provider Reference Range Interpretation Location vitamin D 25-hydroxy, serum 10.3 ng/mL [facility] 30.0-100.0 Low " hemoglobin A1C, blood, as % of total hemoglobin 8.5 % [facility] 4.8-5.6 High " LDL cholesterol, serum 116 mg/dL [facility] 0-99 High " very low density lipoproteins 22 mg/dL [facility] 5-40 " HDL cholesterol, serum 76 mg/dL [facility] >39 " triglyceride, serum, fasting 112 mg/dL [facility] 0-149 " cholesterol, serum 214 mg/dL [facility] 100-199 High " alanine aminotransferase (SGPT), serum 75 1/L [facility] 0-44 High " aspartate aminotransferase (SGOT), serum 82 1/L [facility] 0-40 High " alkaline phosphatase, serum 580 1/L [facility] 39-117 High " bilirubin, serum, total 0.3 mg/dL [facility] 0.0-1.2 " albumin/globulin ratio, serum 0.7 [facility] 1.2-2.2 Low " globulin, serum 4.3 [facility] 1.5-4.5 " albumin, serum 3.0 g/dL [facility] 3.5-5.5 Low " protein, total, serum 7.3 g/dL [facility] 6.0-8.5 " calcium, serum 9.1 mg/dL [facility] 8.7-10.2 " carbon dioxide, venous blood 20 mmol/L [facility] 20-29 " chloride, serum 107 mmol/L [facility] 96-106 High " potassium, serum 5.2 mmol/L [facility] 3.5-5.2 " sodium, serum 139 mmol/L [facility] 134-144 " urea nitrogen/creatinine ratio, serum 12 [facility] 9-20 " eGFR if 32 mL/min/((173/100).m2) [facility] >59 Low " Estimated Glomerular Filtration Rate (calc) 28 mL/min/((173/100).m2) [facility] >59 Low " creatinine, serum 2.52 mg/dL [facility] 0.76-1.27 High " urea nitrogen, blood 31 mg/dL [facility] 6-24 High " blood glucose, random 159 mg/dL [facility] 65-99 High " immature granulocytes, percentage of total cells, blood 0 % [facility] Not Estab. " basophil count, absolute 0.0 x10E3/uL [facility] 0.0-0.2 " Eosinophil Absolute Count 0.3 X10E3/UL [facility] 0.0-0.4 " monocyte count, blood, automated 0.8 X10E3/UL [facility] 0.1-0.9 " lymphocyte count, blood, automated 2.2 X10E3/UL [facility] 0.7-3.1 " Absolute Neutrophils 10.0 X10E3/UL [facility] 1.4-7.0 High " basophils as percent of blood leukocytes 0 % [facility] Not Estab. " eosinophils as percent of blood leukocytes 3 % [facility] Not Estab. " monocytes as percent of blood leukocytes 6 % [facility] Not Estab. " lymphocytes as percent of blood leukocytes 17 % [facility] Not Estab. " neutrophils as percent of blood leukocytes 74 % [facility] Not Estab. " platelet count 386 X10E3/UL [facility] 150-450 " red blood cell distribution width 13.1 % [facility] 12.3-15.4 " mean corpuscular hemoglobin concentration, RBC 33.5 G/DL [facility] 31.5-35.7 " mean corpuscular hemoglobin, RBC 32.1 pg [facility] 26.6-33.0 " mean corpuscular volume, RBC 96 fL [facility] 79-97 " hematocrit, blood 35.5 % [facility] 37.5-51.0 Low " hemoglobin, blood 11.9 g/dL [facility] 13.0-17.7 Low " erythrocyte (RBC) count 3.71 X10E6/UL [facility] 4.14-5.80 Low " leukocyte count, blood 13.5 X10E3/UL [facility] 3.4-10.8 High microalbumin/creatinine ratio, urine 4905.3 MG/G CREAT [facility] [...] 1.005-1.030 blood glucose, random 144 mg/dL [facility] blood glucose, random 198 mg/dL Co [facility] hemoglobin A1C, blood, as % [...] [facility] 3.4-10.8 blood glucose, random 120 mg/dL [facility] blood glucose, random 200 mg/dL [facility] Quantiferon Gold TB blood test [...] X 8 MM use for lantus injections [facility] LANTUS SOLOSTAR 100 UNIT/ML SUBCUTANEOUS SOLUTION PEN-INJECTOR inject 20 units daily at 9 AM [facility] 3 month supply TRIAMCINOLONE ACETONIDE 0.1 % [...] By Mouth Twice a Day - Paula DUMONT SOLOSTAR 100 UNIT/ML SUBCUTANEOUS SOLUTION PEN-INJECTOR inject [...] 1 tablet by mouth daily - Jessica Hebrert FLONASE ALLERGY RELIEF 50 MCG/ACT NASAL SUSPENSION [...] Juan Luis Bennett " sexual orientation Heterosexual Co Юлия Bennett " assessment of health literacy ([facility] 2014 Standards, 3C10) Adequate Juan Luis Bennett " passive cigarette smoke exposure Yes Co Юлия Moxey " smoking status current every day smoker Co Юлия Idrisxey Exercise Program Referral T Co Юлия Moxey [...] Юлия Moxey " assessment of health literacy ([facility] 2014 Standards, 3C10) Adequate Co Юлия Moxey [...] Steve Archuleta " assessment of health literacy ([facility] 2014 Standards, 3C10) Adequate Steve Archuleta " passive cigarette smoke exposure No Steve Archuleta " smoking status current every day smoker Steve Archuleta smoking, advice to quit Yes Paula Norman " cigarettes, number smoked per day 5-6 Paula Emerson " drug use, illicit Never John Mejia " alcohol use Never John Mejia " smoking status current every day smoker Mamtasujata Roberto " social history reviewed E&M reviewed today John Mejia " assessment of health literacy ([facility] 2014 Standards, 3C10) Adequate John Mejia " passive cigarette smoke exposure No John Mejia " Exercise Program Referral T John Mejia [...] Cathy Quintanilla " assessment of health literacy ([facility] 2014 Standards, 3C10) Adequate Cathy Quintanilla " passive cigarette smoke exposure No Cathy Quintanilla " smoking status current every day smoker Cathy Quintanilla time of call 10/25/2018 9:14 AM Angle Avila social history reviewed E&M reviewed today Jennifer Malin " drug use, illicit Never Aamir Manning " alcohol use Never Aamir Manning " Occupation #1 [employer] Aamir Manning " sexual orientation Heterosexual Aamir Manning " assessment of health literacy ([facility] 2014 Standards, 3C10) Adequate Aamir Manning " [...] Never Savanna Anisa " alcohol use Never Lecompte Anisa " social history reviewed E&M reviewed today Savanna Anisa " passive cigarette smoke exposure No Lecompte Anisa " smoking status current every day smoker Savanna Anisa " Exercise Program Referral T Savanna Anisa " Weight Management Counseling Provided T Savanna Anisa " Nutrition intervention T Lecompte Anisa Exercise Program Referral T Jessica Herbert [...] " Nutrition intervention T Ramiro Rizzo " smoking status current every day [...] " Nutrition intervention T Ramiro Rizzo " alcohol use Never Nazjely Geremias " drug use, illicit Never Nazjely Geremias " social history reviewed E&M reviewed today Steve Archuleta " cigarettes, number smoked per day 1-4 Nazjely Geremias " smoking status current every day smoker Nazjely Geremias " passive cigarette smoke exposure No Nazjemagda Archuleta " is there any chance that you could be ? No Nazlucian Archuleta Exercise Program Referral Chelsey Rizzo " [...] Activities of Daily Living (ADL) Independent Ramiro Hare Matthias MENTAL STATUS Date Observation Value Provider mental [...] - Question 1 0 Co Юлия Bennett mental status examination: recall E&M intact for recent and remote events Paula Norman " assessment of judgment and insight E&M intact Paula Norman " mental status examination: orientation E&M oriented to time, place, and person Paula Norman " assessment of mood and affect E&M no depression, anxiety, or agitation Paula Onrman " Generalized Anxiety Disorder Questionnaire - Question 2 0 Juan Luis Bennett " Generalized Anxiety Disorder Questionnaire - [...] Disorder Questionnaire - Question 1 0 Steve Arhculeta mental status examination: orientation E&M oriented to [...] assessment of judgment and insight E&M intact Jennifersatnam Malin " mental status examination: orientation E&M oriented to time, place, and person Jennifersatnam Malin " assessment of mood and affect E&M no depression, anxiety, or agitation Jennifersatnam Malin " Generalized Anxiety Disorder Questionnaire - Question 2 0 Aamir Manning " Generalized Anxiety Disorder Questionnaire - Question 1 0 Aamir Manning assessment of mood and affect E&M Appropriate affect without agitation Ramiro Hare O'Isidro " mental status examination: orientation E&M oriented to time, place, and person Ramiro Hare O'Isidro " assessment of judgment and insight [...] 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 [id number] [facility] 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 [id number] Sliding 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 [id number] Sliding 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 [facility] [employer] [facility] [employer] Other FAMILY PLANNING*TITLE V Medicaid BCBS OF [facility] [id number] Sliding Fee Scale 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 [id number] Family Planning/WHFPT Medicaid [id number] [employer] Other [id number] ADVANCE DIRECTIVES Name Date DISCUSSED - NO DECISION MADE TREATMENT PLAN Date Name Vitamin D, 25-Hydroxy Urinalysis Complete w/reflex to Culture Microalb/Creat Ratio, Rand Ur Lipid Panel Hemoglobin A1c Comp. Metabolic Panel (14) CBC With Differential/Platelet Urinalysis (w/micro), Complete Vitamin D, 25-Hydroxy Lipid Panel Comp. Metabolic Panel (14) Microalb/Creat Ratio, Rand Ur Hemoglobin A1c CBC With Differential/Platelet Hemoglobin A1c Vitamin C with dilution Lipid Panel Microalb/Creat Ratio, Rand Ur Hemoglobin A1c Comp. Metabolic Panel (14) [...] With Differential/Platelet - - - - - Nephrology - Adult - [facility] Ofc Vst, Est Level IV Ofc Vst, Est Level IV Ofc Vst, Est Level IV Ofc Vst, Est Level IV Ofc Vst, Est Level IV [facility] - Internal Nephrology - Adult - [facility] INFLUENZA VACCINE QUADRIVALENT 3 YRS PLUS IM Admin of Vaccine - Injection - 1 Est Patient Detailed - 45830 Nephrology - Adult - [facility] Est Patient Detailed - 51421 Ofc Vst, Est Level IV Glucose Stick Prescription Assistance (Non-HIV) Ofc Vst, Est Level IV Vision Diabetes Education Endocrinology - [place] - [facility] [place] Patient Detailed - 78853 Est Patient Well Exam (40 - 64 Yrs) - 12344 Pneumovax Vaccine PPSV23 Admin of Vaccine - Injection - 1 Est Patient Detailed - 71545 Prevnar (PCV13) IM TDAP Admin of Vaccine - Injection - Each Add'l Admin of Vaccine - Injection - 1 Est Patient Detailed - 08212 Est Patient Exp Problem - 50853 Est Patient Exp Problem - 61693 Est Patient Exp Problem - 74045 Est Patient Problem Focus - 39617 Glucose Stick Est Patient Exp Problem - 24500 Glucose Stick Venipuncture Handling of specimen for transfer New Patient Comprehensive - 02803 HISTORY OF PROCEDURES Procedure Date Procedure Name Provider Procedure Notes Status Glucose Stick Jessica Herbert completed Glucose Stick Ramiro Rizzo completed Glucose Stick Ramior Rizzo completed Venipuncture Ramiro Rizzo completed GOALS No Information Available HEALTH CONCERNS No Information Available
--- OUTSIDE RECORDS SUMMARY | 2019-10-07 22:53 | XMS REPORT ---
Author Author Admin, [place] Organization Unknown Address Unknown Phone Unavailable PROBLEMS Condition Status Date Provider Notes CKD stage 4 (gfr 15-29) active Paula Norman Asymptomatic microscopic hematuria active Paula Norman Burn, 10-19% BSA, L great toe active Paula Norman Rash and other nonspecific skin eruption completed - Paula Cnaalesd Allergic rhinitis, seasonal completed - Paula Norman [...] - Ramiro Rizzo BMI 32.0-32.9 completed - Ramrio Rizzo Vaccination Against Influenza completed - Ramiro [...] Encounter Diagnosis - Ambulatory Encounter [place] Castropard [facility] [place] CKD stage 4 (gfr 15-29) - Ambulatory Encounter Paula Castropard [facility] Adult Medicine UNK - Ambulatory Encounter Paula Castropard [facility] [place] [facility] Asymptomatic microscopic hematuria - Ambulatory Encounter Paula Norman [facility] Adult Medicine UNK - Ambulatory Encounter Paula Norman [facility] Adult Medicine UNK - Ambulatory Encounter Paula Norman [facility] UNK - Ambulatory Encounter Paula Norman Jessica Herbert Co Юлия Bennett [facility] UNK - Ambulatory Encounter Paula Castropard Juan Luis Benentt [facility] [place] [facility] UNK - Ambulatory Encounter Paula Norman [facility] UNK - Ambulatory Encounter Paula Norman [facility] [place] [facility] UNK - Ambulatory Encounter Paula Castropard Radha Livingston Co Юлия Steinbergrachel [facility] [place] [facility] Diabetes mellitus, type IIMedication, long-term useAllergic rhinitis, seasonalRash and other nonspecific skin eruptionBurn, 10-19% BSA, L great toe - Ambulatory Encounter Juan Luis Bennett [facility] [place] [facility] UNK - Ambulatory Encounter Paula Castropard Paula Castroelisa [facility] Rebecca Burkett UNK - Ambulatory Encounter Jessica Herbert [facility] [place] [facility] UNK - Ambulatory Encounter Paula Castropard Paula Castropard [facility] UNK - Ambulatory Encounter Beth Greene [facility] UNK - Ambulatory Encounter Beth Greene Paula Castropard Paula Castropard [facility] UNK - Ambulatory Encounter Paula Castropard Paula Castropard [employer] [facility] UNK - Ambulatory Encounter Paula Castropard Paula Castropard [employer] [facility] UNK - Ambulatory Encounter Ellajay Keon [facility] [place] [facility] UNK - Ambulatory Encounter Jessica Herbert Steve Archuleta [facility] UNK - Ambulatory Encounter Paula Canalesd Paula Castropard [facility] UNK - Ambulatory Encounter Paula Canalesd Paula Castropard [facility] UNK - Ambulatory Encounter Paula Canalesd Paula Castroelisa Mejia [facility] [place] [facility] Allergic rhinitis, seasonalRash and other nonspecific skin eruption - Ambulatory Encounter Paula Castropard Paula Castroelisa Espinosa [facility] [place] [facility] UNK - Ambulatory Encounter Paula Castropard Paula Castropard [employer] [facility] Medicine UNK - Ambulatory Encounter Paula Emerson Norman [employer] [facility] Adult Medicine UNK - Ambulatory Encounter Ellajay Herbert [facility] Adult Medicine UNK - Ambulatory Encounter Anh Yao [facility] UNK - Ambulatory Encounter Linda Contreras [facility] UNK - Ambulatory Encounter Steve Archuleta [facility] UNK - Ambulatory Encounter Ramiro Hare O'Isidrojay Hare O'Isidrojay Bishop MedAdherence [facility] UNK - Ambulatory Encounter Paula Norman [facility] UNK - Ambulatory Encounter Paula Norman Cathy Archuleta [facility] UNK - Ambulatory Encounter Jessica Herbert [facility] Medicine UNK - Ambulatory Encounter Angle Avila [facility] Public Health Services UNK - Ambulatory Encounter New Stanley Anh Yoa [facility] UNK - Ambulatory Encounter Anh Yao [facility] Medicine UNK - Ambulatory Encounter Ramiro Hare O'Isidro [employer] [facility] UNK - Ambulatory Encounter Jose Armando Gonzalez [facility] Medicine UNK - Ambulatory Encounter Jennifer Malin [employer] [facility] Medicine UNK - Ambulatory Encounter Aamir Manning [facility] Medicine UNK - Ambulatory Encounter Fax Status [facility] Services UNK - Ambulatory Encounter Fax Status [facility] UNK - Ambulatory Encounter Jennifer Tejedao [facility] UNK - Ambulatory Encounter [facility] Ambulatory Encounter [facility] UNK - Ambulatory Encounter [facility] UNK - Ambulatory Encounter Jennifer Manning [facility] UNK - Ambulatory Encounter Jennifer Malin [facility] UNK - Ambulatory Encounter Jennifer Malin [facility] UNK - Ambulatory Encounter Jennifer Strickland-Carlos Tejedao [facility] [place] [facility] OverweightBMI 31.0-31.9Tobacco useObesityMedication, long-term useLiver function abnormality - Ambulatory Encounter Lilo Amaro [facility] [place] [facility] UNK - Ambulatory Encounter Steve Archuleta [facility] UNK - Ambulatory Encounter Ramiro Samayoa [facility] Microalbuminuria - Ambulatory Encounter Ramiro Rizzo [facility] Adult Medicine UNK - Ambulatory Encounter Ramiro Rizzo [facility] Adult Medicine UNK - Ambulatory Encounter Ramiro Arellano 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 Adult Medicine UNK - Ambulatory Encounter Ramiro Hare O'Isidro Hare O'Isidro [employer] [facility] Adult Medicine UNK - Ambulatory Encounter Ramiro Hare O'Isidro Hare O'Isidro [facility] Adult Medicine UNK - Ambulatory Encounter Ramiro Rizzo [facility] Adult Medicine UNK - Ambulatory Encounter Ramiro Rizzo [facility] Adult Medicine UNK - Ambulatory Encounter Ramiro Arellano [facility] Adult Medicine Immunization updatePreventive health careColorectal screeningProstate Cancer, Screening - Ambulatory Encounter Ramiro Guerra [facility] UNK - Ambulatory Encounter Ramiro Rizzo [facility] UNK - Ambulatory Encounter Ramiro Rizzo [facility] Adult Medicine UNK - Ambulatory Encounter Ramiro Rizzo [facility] Adult Medicine UNK - Ambulatory Encounter Ramiro Rizzo [facility] Adult Medicine UNK - Ambulatory Encounter Fax Status [employer] [facility] Services UNK - Ambulatory Encounter Fax Status [facility] UNK - Ambulatory Encounter Fax Status [facility] Services UNK - Ambulatory Encounter Ramiro Rizzo [facility] Adult Medicine UNK - Ambulatory Encounter Ramiro Livingston [facility] Adult Medicine BMI 32.0-32.9Candidal balanitisBMI 29.0-29.9Preventive health carePeripheral vascular insufficiencyColorectal screeningProstate Cancer, Screening - Ambulatory Encounter Ramiro Hare O'Isidro Hare O'Isidro [employer] [facility] Medicine UNK - Ambulatory Encounter Ramiro Hare O'Isidro Hare O'Isidro [employer] [facility] Medicine UNK - Ambulatory Encounter Lacey Landes [facility] Dental UNK - Ambulatory Encounter Ramiro Hare O'Isidro Hare O'Isidro Dunia Jones [facility] Center UNK - Ambulatory Encounter Ramiro Hare O'Isidro Hare O'Isidro [facility] Adult Medicine UNK - Ambulatory Encounter Ramiro Hare O'Isidro Hare O'Isidrojay Arellano [facility] BronchitisCandidal balanitisImmunization update - Ambulatory Encounter Mag Son [facility] Medicine UNK - Ambulatory Encounter Ramiro Hare O'Isidro Hare O'Isidrojay Guerra [facility] Medicine UNK - Ambulatory Encounter Ramiro Hare O'Isidro Hare O'Isidro [facility] Medicine UNK - Ambulatory Encounter Ramiro Hare O'Isidro Hare O'Isidro [employer] [facility] Medicine UNK - Ambulatory Encounter Ramiro Hare O'Isidro Hare O'Isidro [facility] Adult Medicine UNK - Ambulatory Encounter Ramiro Hare O'Isidro Hare O'Isidro Steve Archuleta [facility] [place] [facility] BMI 32.0-32.9Bronchitis - Ambulatory Encounter Ramiro Hare O'Isidro Hare O'Isidro [facility] Medicine UNK - Ambulatory Encounter Ramiro Hare O'Isidro Hare O'Isidro [facility] Adult Medicine UNK - Ambulatory Encounter Ramiro Hare O'Isidro Hare Matthias Son [facility] Medicine Helicobacter pylori gastrointestinal tract infectionVaccination Against Influenza - Ambulatory Encounter Florenciodenisse Givens [facility] [place] Medicine UNK - Ambulatory Encounter Anna Connell [facility] Medicine UNK - Ambulatory Encounter Anna Connell [employer] [facility] Medicine UNK - Ambulatory Encounter Ramiro Friend'Isidro [facility] Adult Medicine UNK - Ambulatory Encounter Av Tinajero [facility] Medicine UNK - Ambulatory Encounter Ramiro Friend'Isidro [facility] Adult Medicine UNK - Ambulatory Encounter Ramiro Friend'Isidro Loveon Eileen [facility] Medicine UNK - Ambulatory Encounter Ramiro Rizzo [facility] Adult Medicine UNK - Ambulatory Encounter Ramiro Rizzo [facility] Adult Medicine UNK - Ambulatory Encounter Ramiro Friend'Isidro [facility] Adult Medicine UNK - Ambulatory Encounter Ramiro Friend'Isidro Zachary Eileen [facility] [place] [facility] Abdominal pain, left upper quadrant - Ambulatory Encounter Ramiro Rizzo [facility] Adult Medicine UNK - Ambulatory Encounter Ramiro Rizzo [facility] Adult Medicine UNK - Ambulatory Encounter Av Tinajero [facility] Medicine UNK - Ambulatory Encounter Ramiro Rizzo [facility] Adult Medicine UNK - Ambulatory Encounter Ramiro Friend'Isidro Zachary Eileen [facility] Adult Medicine UNK - Ambulatory [...] - Ambulatory Encounter Ramiro Friend'Isidro Friend'Isidro Sharma [facility] Adult Medicine UNK - Ambulatory En[facility] - Ambulatory Encounter Ramiro Friend'Isidro Friend'Isidro [facility] Diabetes mellitus, type IIErectile dysfunctionHyperlipidemiaHelicobacter pylori gastrointestinal tract infectionVitamin D deficiency - Ambulatory Encounter Ramiro Friend'Isidro Friend'Isidro [facility] Adult Medicine UNK - Ambulatory Encounter Yuri Derek [facility] Adult Medicine UNK - Ambulatory Encounter Yuri Derek [facility] Medicine UNK - Ambulatory Encounter Ramiro Friend'Isidro Friend'Isidro [facility] Medicine UNK - Ambulatory Encounter Ramiro Friend'Isidro Sharma [facility] Adult Medicine OverweightHypertensionDiabetes mellitus, type IIAbdominal pain, left upper quadrantHx of syncopeErectile dysfunctionDiabetic peripheral neuropathy - Ambulatory Encounter Ramiro Friend'Isidro Friend'Isidro [facility] UNK - Ambulatory Encounter Av Tinajero [...] 1.005-1.030 blood glucose, random 144 mg/dL [facility] blood glucose, random 198 mg/dL Co [facility] hemoglobin A1C, blood, as % of [...] LinkLogic 3.4-10.8 blood glucose, random 120 mg/dL [facility] blood glucose, random 200 mg/dL [facility] Quantiferon Gold TB blood test for [...] X 8 MM use for lantus injections [facility] LANTUS SOLOSTAR 100 UNIT/ML SUBCUTANEOUS SOLUTION PEN-INJECTOR inject 20 units daily at 9 [facility] 3 month supply TRIAMCINOLONE ACETONIDE 0.1 % [...] Юлия Bennett " assessment of health literacy ([facility] 2014 Standards, 3C10) Adequate Juan Luis [...] Юлия Moxey " assessment of health literacy ([facility] 2014 Standards, 3C10) Adequate Co Юлия [...] Steve Archuleta " assessment of health literacy ([facility] 2014 Standards, 3C10) Adequate Steve Archuleta [...] John Mejia " assessment of health literacy ([facility] 2014 Standards, 3C10) Adequate John Mejia " [...] Cathy Quintanilla " assessment of health literacy ([facility] 2014 Standards, 3C10) Adequate Cathy Quintanilla " passive cigarette smoke exposure No Cathy Quintanilla " smoking status current every day smoker Cathy Quintanilla time of call 10/25/2018 9:14 AM Angle Avila social history reviewed E&M reviewed today Jennifer Malin " drug use, illicit Never Aamir Manning " alcohol use Never Aamir Manning " 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 Aamir Manning " sexual orientation Heterosexual Aamir Manning " assessment of health literacy ([facility] 2014 Standards, 3C10) Adequate Aamir Manning [...] Never Savanna Anisa " alcohol use Never Kimberton Anisa " social history reviewed E&M reviewed today Savanna Anisa " passive cigarette smoke exposure No Kimberton Anisa " smoking status current every day smoker Savanna Anisa " Exercise Program Referral T Savanna Anisa " Weight Management Counseling Provided T Savanna Anisa " Nutrition intervention T Kimberton Anisa Exercise Program Referral T Jessica Herbert " Weight Management Counseling Provided T Jessica Herbert " Nutrition intervention T Jessica Herbert " drug use, illicit Never Aydee Quach " alcohol use Never Aydee Quach " is there any chance that you could be ? 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 [id number] [facility] 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 [id number] Sliding 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 [id number] Sliding 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 [facility] [employer] Other FAMILY PLANNING*TITLE V Medicaid BCBS OF [facility] [id number] Sliding Fee Scale 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 [id number] Family Planning/WHFPT Medicaid [id number] [employer] Other [id number] ADVANCE DIRECTIVES Name Date DISCUSSED - NO [...] - - - Nephrology - [place] - [facility] Ofc Vst, Est Level IV Ofc Vst, Est Level IV Ofc Vst, Est Level IV Ofc Vst, Est Level IV Ofc Vst, Est Level IV Vision Dental - Internal Nephrology - Adult - [facility] INFLUENZA VACCINE QUADRIVALENT 3 YRS PLUS IM Admin of Vaccine - Injection - 1 Est Patient Detailed - 45725 Nephrology - Adult - [facility] Est Patient Detailed - 29774 Ofc Vst, Est Level IV Glucose Stick Prescription Assistance (Non-HIV) Ofc Vst, Est Level IV Vision Diabetes Education Endocrinology - Adult - [facility] Est Patient Detailed - 79097 Est Patient Well Exam (40 - 64 Yrs) - 00137 Pneumovax Vaccine PPSV23 Admin of Vaccine - Injection - 1 Est Patient Detailed - 51718 Prevnar (PCV13) IM TDAP Admin of Vaccine - Injection - Each Add'l Admin of Vaccine - Injection - 1 Est Patient Detailed - 20814 Est Patient Exp Problem - 99622 Est Patient Exp Problem - 99905 Est Patient Exp Problem - 24261 Est Patient Problem Focus - 24259 Glucose Stick Est Patient Exp Problem - 48601 Glucose Stick Venipuncture Handling of specimen for transfer New Patient Comprehensive - 80659 HISTORY OF PROCEDURES Procedure Date Procedure Name Provider Procedure Notes Status Glucose Stick Jessica Herbert completed Glucose Stick Ramiro Rizzo completed Glucose Stick Ramiro Rizzo completed Venipuncture Ramiro Rizzo completed GOALS No Information Available HEALTH CONCERNS No Information Available
--- OUTSIDE RECORDS SUMMARY | 2019-10-07 22:54 | XMS REPORT ---
Author Author Admin, Nara Visa Organization Unknown Address Unknown Phone Unavailable PROBLEMS [...] Provider Location Encounter Diagnosis - Ambulatory Encounter Juan Luis Bennett [facility] Adult Medicine UNK - Ambulatory [facility]counter [facility] Adult Medicine UNK - Ambulatory Encounter Paula Castropard [facility] Adult Medicine CKD stage 4 (gfr 15-29) - Ambulatory Encounter Paula Norman [facility] Adult Medicine UNK - Ambulatory Encounter Paula Castropard [facility] Adult Medicine Asymptomatic microscopic hematuria - Ambulatory Encounter Paula Norman [facility] Adult Medicine UNK - Ambulatory Encounter [facility] Adult Medicine UNK - Ambulatory Encounter Paula Norman [facility] Adult Medicine UNK - Ambulatory Encounter Paula Norman Rinal Herbert [place] Юлия Bennett [facility] Adult Medicine UNK - Ambulatory Encounter Paula Norman Juan Luis Bennett [facility] Adult Medicine UNK - Ambulatory Encounter Paula Norman [facility] Adult Medicine UNK - Ambulatory Encounter Paula Norman [facility] Adult Medicine UNK - Ambulatory Encounter Paula Norman Radha [place] Юлия Bennett [facility] Adult Medicine Diabetes mellitus, type IIMedication, long-term useAllergic rhinitis, seasonalRash and other nonspecific skin eruptionBurn, 10-19% BSA, L great toe - Ambulatory Encounter Co Юлия Bennett [facility] Adult Medicine UNK - Ambulatory Encounter Paula [facility] - Ambulatory Encounter Jessica Herbert [facility] Adult Medicine UNK - Ambulatory Encounter Paula Norman [facility] Adult Medicine UNK - Ambulatory Encounter Beth Greene [facility] Adult Medicine UNK - Ambulatory Encounter Beth Jcelaine Norman [facility] Adult Medicine UNK - Ambulatory Encounter Paula Norman [employer] Adult Medicine UNK - Ambulatory Encounter Paula Norman [facility] Adult Medicine UNK - Ambulatory Encounter Jessica Herbert [facility] Adult Medicine UNK - Ambulatory Encounter Ellajay Herbert Steve Archuleta [facility] Adult Medicine UNK - Ambulatory Encounter Paula Norman [facility] Adult Medicine UNK - Ambulatory Encounter Paula Norman [facility] Adult Medicine UNK - Ambulatory Encounter Paula Norman John Mejia [facility] Adult Medicine Allergic rhinitis, seasonalRash and other nonspecific skin eruption - Ambulatory Encounter Paula Norman Steve Espinosa [facility] Adult Medicine UNK - Ambulatory Encounter Paula Norman [facility] Adult Medicine UNK - Ambulatory Encounter Paula Norman [facility] Adult Medicine UNK - Ambulatory Encounter Jessica Herbert [facility] LM Adult Medicine UNK - Ambulatory Encounter Anh Yao [facility] Adult Medicine UNK - Ambulatory Encounter Linda Contreras [facility] UNK - Ambulatory Encounter Steve Archuleta [facility] Adult Medicine UNK - Ambulatory Encounter Ramiro Hrae ONicky Bishop MedAdherence [facility] Adult Medicine UNK - Ambulatory Encounter Paula Norman [facility] Adult Medicine UNK - Ambulatory Encounter Paula Norman Cathy Archuleta [facility] Adult Medicine UNK - Ambulatory Encounter Jessica Nortonel [facility] Adult Medicine UNK - Ambulatory Encounter Angle Avila [facility] UNK - Ambulatory Encounter New Jaden Samayoa LM Adult Medicine UNK - Ambulatory Encounter Anh Samayoa [facility] Adult Medicine UNK - Ambulatory Encounter Ramiro JacobsenLogic [facility] Adult Medicine UNK - Ambulatory Encounter Jose Armando Gonzalez [facility] Adult Medicine UNK - Ambulatory Encounter Jennifer [facility]in [facility] UNK - Ambulatory Encounter Aamir Manning [facility] Adult Medicine UNK - Ambulatory Encounter Fax Status [facility] UNK - Ambulatory Encounter Fax Status [facility] UNK - Ambulatory Encounter Jennifer Manning [facility] Adult Medicine UNK - Ambulatory Encounter Fax Status [facility] UNK - Ambulatory Encounter Fax Status [facility] UNK - Ambulatory Encounter Fax Status [facility] UNK - Ambulatory Encounter Jennifer Manning [facility] Adult Medicine UNK - Ambulatory Encounter Jennifer Malin [facility] Adult Medicine UNK - Ambulatory Encounter Jennifer Malin [facility] Adult Medicine UNK - Ambulatory Encounter Jennifer Manning [facility] Adult Medicine OverweightBMI 31.0-31.9Tobacco useObesityMedication, long-term useLiver function abnormality - Ambulatory Encounter Lilo Amaro [facility] Adult Medicine UNK - Ambulatory Encounter Steve Archuleta [facility] Adult Medicine UNK - Ambulatory Encounter Ramiro Samayoa [facility] Adult Medicine Microalbuminuria - Ambulatory Encounter Ramiro Rizzo [facility] Adult Medicine UNK - Ambulatory Encounter Ramiro Rizzo [facility] Adult Medicine UNK - Ambulatory Encounter Ramiro Arellano [facility] Adult Medicine HyperlipidemiaBMI 29.0- 29.9BMI 31.0-31.9 - Ambulatory Encounter Rinal Herbert [facility] Adult Medicine UNK - Ambulatory Encounter Ana Laura Escobedo [facility] Vision UNK - Ambulatory Encounter Aliceangelina ObandoAbrazo [facility] UNK - Ambulatory Encounter Janice Villalpando [facility] Design Engineer UNK - Ambulatory Encounter Rinal Herbert [place] [facility] [facility] Adult Medicine UNK - Ambulatory Encounter Rinal Herbert [facility] Adult Medicine UNK - Ambulatory Encounter Rinal Herbert Aleja Villalpando [place] [facility] [facility] Adult Medicine UNK - Ambulatory [...] UNK - Ambulatory Encounter Rinal Herbert Aydee Parsonluci Reardoners LM Adult Medicine UNK - Ambulatory Encounter Beth Jc [facility] Adult Medicine UNK - Ambulatory Encounter Ramiro Hare O'Isidro Mitchellhemi Jc [facility] Adult Medicine UNK - Ambulatory Encounter Ramiro Rizzo [facility] Adult Medicine UNK - Ambulatory Encounter Ramiro JacobsenLogduy [facility] Adult Medicine UNK - Ambulatory Encounter Ramiro Rizzo [facility] Adult Medicine UNK - Ambulatory Encounter Ramiro Rizzo [facility] Adult Medicine UNK - Ambulatory Encounter Ramiro Rizzo [facility] Adult Medicine UNK - Ambulatory Encounter Ramiro Arellano [facility] Adult Medicine Immunization updatePreventive health careColorectal screeningProstate Cancer, Screening - Ambulatory Encounter Ramiro Guerra [facility] Adult Medicine UNK - Ambulatory Encounter [facility] - Ambulatory Encounter Ramiro Rizzo [facility] Adult Medicine UNK - Ambulatory Encounter Ramiro Rizzo [facility] Adult Medicine UNK - Ambulatory Encounter [facility] UNK - Ambulatory Encounter Fax Status [facility] UN[facility] - Ambulatory Encounter Fax Status [facility] UNK - Ambulatory Encounter Fax Status [facility] UNK - Ambulatory Encounter Ramiro Rizzo [facility] Adult Medicine UNK - Ambulatory Encounter Ramiro [place] [facility] Adult Medicine BMI 32.0-32.9Candidal balanitisBMI 29.0-29.9Preventive health carePeripheral vascular insufficiencyColorectal screeningProstate Cancer, Screening - Ambulatory Encounter Ramiro Rizzo [employer] Adult Medicine UNK - Ambulatory Encounter Ramiro Friend'Isidro LinkLogic [facility] Adult Medicine UNK - Ambulatory Encounter Lacey Raafel [facility] Dental UNK - Ambulatory Encounter Ramiro Friend'Isidro [facility] UNK - Ambulatory Encounter Ramiro Rizzo [facility] Adult Medicine UNK - Ambulatory Encounter Ramiro Friend'Isidro Friend'Isidro Arellano [facility] Adult Medicine BronchitisCandidal balanitisImmunization update - Ambulatory Encounter Mag Son [facility] Adult Medicine UNK - Ambulatory Encounter Ramiro Friend'Isidro Guerra [facility] Adult Medicine UNK - Ambulatory Encounter Ramiro Rizzo LM Adult Medicine UNK - Ambulatory Encounter Ramiro Friend'Isidro Rizzo Link[employer] [facility] Adult Medicine UNK - Ambulatory Encounter Ramiro Rizzo [facility] Adult Medicine UNK - Ambulatory Encounter Ramiro Friend'Isidro Archuleta [facility] Adult Medicine BMI 32.0-32.9Bronchitis - Ambulatory Encounter Ramiro Friend'Isidro [facility] Adult Medicine UNK - Ambulatory Encounter Ramiro Rizzo LM Adult Medicine UNK - Ambulatory Encounter Ramiro Son [facility] Adult Medicine Helicobacter pylori gastrointestinal tract infectionVaccination Against Influenza - Ambulatory Encounter Florencio Chon [facility] Adult Medicine UNK - Ambulatory Encounter Anna Connell [facility] Adult Medicine UNK - Ambulatory Encounter Anna Connell [employer] Adult Medicine UNK - Ambulatory Encounter Ramiro Rizzo [employer] Adult Medicine UNK - Ambulatory Encounter Av Tinajero [facility] Adult Medicine UNK - Ambulatory Encounter Ramiro Rizzo [facility] Adult Medicine UNK - Ambulatory Encounter Ramiro Arellano [facility] Adult Medicine UNK - Ambulatory Encounter Ramiro Rizzo LinkLog[facility] Adult Medicine UNK - Ambulatory Encounter Ramiro Rizzo LM Adult Medicine UNK - Ambulatory Encounter Ramiro Rizzo LM Adult Medicine UNK - Ambulatory Encounter Ramiro Sharma Eileen [facility] Adult Medicine Abdominal pain, left upper quadrant - Ambulatory Encounter Ramiro Rizzo LM Adult Medicine UNK - Ambulatory Encounter Ramiro Rizzo LinkLog[facility] Adult Medicine UNK - Ambulatory Encounter Av Tinajero [facility] Adult Medicine UNK - Ambulatory Encounter Ramiro Hare [facility] Adult Medicine UNK - Ambulatory Encounter Ramiro Friend'Isidro Friend'Isidro Zachary Eileen [facility] Adult Medicine UNK - Ambulatory Encounter Ramiro Friend'Isidro Hare O'Isidro [facility] Adult Medicine UNK - Ambulatory Encounter Ramiro Friend'Isidro Hare O'Isidro [facility] Adult Medicine UNK - Ambulatory Encounter Ramiro Friend'Isidro Hare O'Isidro [facility] Adult Medicine UNK - Ambulatory Encounter Ramiro Friend'Isidro Hare O'Isidro [facility] Adult Medicine UNK - Ambulatory Encounter Ramiro Friend'Isidro Friend'Isidro [facility] Adult Medicine UNK - Ambulatory Encounter Ramiro Friend'Isidro Hare O'Isidro Zachary Eileen [facility] Adult Medicine UNK - Ambulatory Encounter Ramiro Friend'Isidro Hare O'Isidro [facility] Adult Medicine UNK - Ambulatory Encounter Ramiro Friend'Isidro Friend'Isidro LM Adult Medicine Diabetes mellitus, type IIErectile dysfunctionHyperlipidemiaHelicobacter pylori gastrointestinal tract infectionVitamin D deficiency - Ambulatory Encounter Ramiro Friend'Isidro Friend'Isidro [facility] Adult Medicine UNK - Ambulatory Encounter Yuri Derek [facility] Adult Medicine UNK - Ambulatory Encounter Yuri Derek [facility] Adult Medicine UNK - Ambulatory Encounter Ramiro Friend'Isidro Friend'Isidro [facility] Adult Medicine UNK - Ambulatory Encounter Ramiro Friend'Isidro Friend'Isidro Sharma Eileen LM Adult Medicine OverweightHypertensionDiabetes mellitus, type IIAbdominal pain, left upper quadrantHx of syncopeErectile dysfunctionDiabetic peripheral neuropathy - Ambulatory Encounter [facility] - Ambulatory Encounter Av Tinajero [facility] Adult Medicine UNK - Ambulatory Encounter Av Tinajero [facility] Adult Medicine UNK VITAL SIGNS [...] 1.005-1.030 blood glucose, random 144 mg/dL Co [facility] blood glucose, random 198 mg/dL Co [facility] hemoglobin A1C, blood, as % of [...] 4.8-5.6 High blood glucose, fasting 138 mg/dL [place] microalbumin/total urine volume 2318.5 mg/L LinkLogic Not [...] High blood glucose, random 127 mg/dL Zachary Eileen hemoglobin A1C, blood, as [...] LinkLogic 3.4-10.8 blood glucose, random 120 mg/dL [facility] blood glucose, random 200 mg/dL [facility] Quantiferon Gold TB blood test for [...] LinkLogic 79-97 " hematocrit, blood 40.9 % LinkLog [...] By Mouth Twice a Day - Paula HORTONOSTAR 100 UNIT/ML SUBCUTANEOUS SOLUTION PEN-INJECTOR inject 20 [...] Bennett " alcohol use Never Co Юлия Moxey " social history reviewed E&M reviewed today Co Юлия Moxey " sexual orientation Heterosexual Co Юлия Moxey " assessment of health literacy ([facility] 2014 Standards, 3C10) Adequate Co [...] Юлия Moxey " assessment of health literacy ([facility] 2014 Standards, 3C10) Adequate Co Юлия Moxey " passive cigarette smoke exposure Yes Co Юлия Moxey " smoking status current every day smoker Co Юлия Moxey time of call 06/27/2019 10:24 AM Rebecca Browning Exercise Program Referral T Jessica Herbert " Weight Management Counseling Provided T Rinal Herbert " Nutrition intervention T Jessica Herbert " drug use, illicit Never Sagrariodaniela Archuleta " alcohol use Never Steve Archuleta " social history reviewed E&M reviewed today Steve Archuleta " is there any chance that you could be ? No Steve Archuleta " assessment of health literacy ([facility] 2014 Standards, 3C10) Adequate Steve Archuleta " passive cigarette smoke exposure No Josetteilanmagda Archuleta " smoking status current every day smoker Sagrariodaniela Archuleta smoking, advice to quit Yes Paula Norman " cigarettes, number smoked per day 5-6 Paula Norman " drug use, illicit Never John Mejia " alcohol use Never Mamtaa Roberto " smoking status current every day smoker John Mejia " social history reviewed E&M reviewed today John Mejia " assessment of health literacy ([facility] 2014 Standards, 3C10) Adequate Jhon Mejia " passive cigarette smoke exposure No [...] Cathy Dwight " assessment of health literacy ([facility] 2014 Standards, 3C10) Adequate Cathytalya Quintnailla " passive cigarette smoke exposure No Cathy Quintanilla " smoking status current every day smoker Cathy Quintanilla time of call 10/25/2018 9:14 AM Angle Avila social history reviewed E&M reviewed today Jennifer Malin " drug use, illicit Never Aamir Manning " alcohol use Never Aamir Manning " Occupation #1 [employer] Aamir Manning " sexual orientation Heterosexual Aamir Manning " assessment of health literacy ([facility] 2014 Standards, 3C10) Adequate Aamir [...] today Zachary Eileen drug use, illicit Never [place] " alcohol use Never Savanna Anisa " social history reviewed E&M reviewed today Savanna Anisa " passive cigarette smoke exposure No [place] " smoking status current every day smoker [place] " Exercise Program Referral T [place] " Weight Management Counseling Provided T Savanna Lange " Nutrition intervention T Savanna Lange Exercise Program Referral T Jessica Herbert " Weight Management Counseling Provided T Jessica Herbert " Nutrition intervention T Rinjay Herbert " drug use, illicit Never Aydee Quach " alcohol use Never Aydee Quach " is there any chance that you could be ? No Alyssain Main " smoking status current every day smoker Aydee Quach Exercise Program Referral Chelsye Rizzo " Weight Management Counseling Provided Chelsey [...] " smoking status current every day smoker Nalexjemagda Archuleta " passive cigarette smoke exposure No [...] Chelsey Rizzo " drug use, illicit Never Azchary Eileen " alcohol use Never Zachary Eileen " sex at male Zachary Eileen " patient considered to be homeless No Zachary Eileen " social history reviewed E&M reviewed today Zachary Arellano " passive cigarette smoke exposure No Zachary Eileen " smoking status never smoker Zachary Arellano FUNCTIONAL STATUS Date Observation Value Provider total score, Activities of Daily Living (ADL) Independent Ramiro Hare RonnaNicky MENTAL STATUS Date Observation Value Provider mental [...] - Question 1 0 Juan Luis Bennett mental status examination: recall E&M intact [...] Disorder Questionnaire - Question 1 0 Savanna Lawrencey assessment of judgment and insight E&M intact [...] Anxiety Disorder Questionnaire - Question 2 0 Zacharyamanda Arellano " Generalized Anxiety Disorder Questionnaire - Question 1 0 Zacharyamanda Arellano assessment of judgment and insight E&M [...] name Policy type / Coverage type Covered republican ID Sliding 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 [id number] [facility] 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 [employer] [id number] Sliding 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 Metabolic [...] - - - Nephrology - Adult - [facility] Ofc Vst, Est Level IV Ofc Vst, Est Level IV Ofc Vst, Est Level IV Ofc Vst, Est Level IV Ofc Vst, Est Level IV Vision Dental - Internal Nephrology - Adult - [facility] INFLUENZA VACCINE QUADRIVALENT 3 YRS PLUS IM Admin of Vaccine - Injection - 1 Est Patient Detailed - 64950 Nephrology - Adult - [facility] Est Patient Detailed - 28057 Ofc Vst, Est Level IV Glucose Stick Prescription Assistance (Non-HIV) Ofc Vst, Est Level IV Vision Diabetes Education Endocrinology - Adult - [facility] Est Patient Detailed - 01198 Est Patient Well Exam (40 - 64 Yrs) - 13747 Pneumovax Vaccine PPSV23 Admin of Vaccine - Injection - 1 Est Patient Detailed - 73446 Prevnar (PCV13) IM TDAP Admin of Vaccine - Injection - Each Add'l Admin of Vaccine - Injection - 1 Est Patient Detailed - 17366 Est Patient Exp Problem - 99089 Est Patient Exp Problem - 10576 Est Patient Exp Problem - 46489 Est Patient Problem Focus - 92782 Glucose Stick Est Patient Exp Problem - 38266 Glucose Stick Venipuncture Handling of specimen for transfer New Patient Comprehensive - 88794 HISTORY OF PROCEDURES Procedure Date Procedure Name Provider Procedure Notes Status Glucose Stick Jessica Herbert completed Glucose Stick Ramiro Rizzo completed Glucose Stick Ramiro Rizzo completed Venipuncture Ramiro Rizzo completed GOALS No Information Available [facility] No Information Available
--- OUTSIDE RECORDS SUMMARY | 2019-10-07 22:55 | XMS REPORT ---
Author Author Admin, [place] [facility] Unknown Address Unknown Phone Unavailable PROBLEMS [...] Provider Location Encounter Diagnosis - Ambulatory Encounter Co Юлия Bennett [facility] Adult Medicine UNK - Ambulatory Encounter Co Юлия Bennett [facility] Adult Medicine UNK - [facility] Adult Medicine UNK - Ambulatory Encounter Paula Castropard [facility] Adult Medicine CKD stage 4 (gfr 15-29) - Ambulatory Encounter [facility] Adult Medicine UNK - Ambulatory Encounter Paula Norman [facility] Adult Medicine Asymptomatic microscopic hematuria - Ambulatory Encounter Paula Norman [facility] Adult Medicine UNK - Ambulatory Encounter Paula Norman [facility] Adult Medicine UNK - Ambulatory Encounter Paula Norman [facility] Adult Medicine UNK - Ambulatory Encounter Paula Norman Rinal Herbert Co Юлия Bennett [facility] Adult Medicine UNK - Ambulatory Encounter Paula Norman Juan Luis Bennett [facility] Adult Medicine UNK - Ambulatory Encounter Paula Norman [facility] Adult Medicine UNK - Ambulatory Encounter Paula Norman [facility] Adult Medicine UNK - Ambulatory Encounter Paula Norman Radha [place] Co Юлия Steinbergxjone [facility] Adult Medicine Diabetes mellitus, type IIMedication, long-term useAllergic rhinitis, seasonalRash and other nonspecific skin eruptionBurn, 10-19% BSA, L great toe - Ambulatory Encounter Co Юлия Bennett [facility] Adult Medicine UNK - Ambulatory Encounter Paula Norman [facility] - Ambulatory Encounter Jessica Herbert [facility] Adult Medicine UNK - Ambulatory Encounter Paula Norman [facility] Adult Medicine UNK - Ambulatory Encounter Beth Jc [facility] Adult Medicine UNK - Ambulatory Encounter Beth Jcelaine Norman [facility] Adult Medicine UNK - Ambulatory Encounter Paula Norman [facility] Adult Medicine UNK - Ambulatory Encounter Paula Norman [facility] Adult Medicine UNK - Ambulatory Encounter Ellajay Keon [facility] Adult Medicine UNK - Ambulatory Encounter Jessica Herbert Steve Archuleta [facility] Adult Medicine UNK - Ambulatory Encounter Paula Norman [facility] Adult Medicine UNK - Ambulatory Encounter Paula Norman [facility] Adult Medicine UNK - Ambulatory Encounter Paula Norman John Mejia [facility] Adult Medicine Allergic rhinitis, seasonalRash and other nonspecific skin eruption - Ambulatory Encounter Paula Norman Abbemagda Geremias [facility] Adult Medicine UNK - Ambulatory Encounter Paula Norman [facility] Adult Medicine UNK - Ambulatory Encounter Paula Norman [facility] Adult Medicine UNK - Ambulatory Encounter Ellajay Herbert [facility] LM Adult Medicine UNK - Ambulatory Encounter Fletcher Yao [facility] Adult Medicine UNK - Ambulatory Encounter Linda Contreras [facility] UNK - Ambulatory Encounter Steve Archuleta [facility] Adult Medicine UNK - Ambulatory Encounter Ramiro JimenezAdherence LM Adult Medicine UNK - Ambulatory Encounter Paula Norman [facility] Adult Medicine UNK - Ambulatory Encounter Paula Norman Cathy Archuleta [facility] Adult Medicine UNK - Ambulatory Encounter Jessica Herbert [facility] Adult Medicine UNK - Ambulatory Encounter Angle Avila [facility] Public Health Services UNK - Ambulatory Encounter New Adrogue Anh Yao [facility] Adult Medicine UNK - Ambulatory Encounter Anh Yao [facility] Adult Medicine UNK - Ambulatory Encounter Ramiro JacobsenLogic LM Adult Medicine UNK - Ambulatory Encounter Jose Armando Gonzalez [facility] Adult Medicine UNK - Ambulatory Encounter Jennifer Malin [facility] LM Adult Medicine UNK - Ambulatory Encounter Aamir Kerri [facility] Adult Medicine UNK - Ambulatory Encounter Fax Status [facility] Services UNK - Ambulatory Encounter [facility] - Ambulatory Encounter Jennifer Manning [facility] Adult Medicine UNK - Ambulatory Encounter Fax Status [facility] Services UNK - Ambulatory Encounter Fax Status [facility] Services UNK - Ambulatory Encounter Fax Status [facility] UNK - Ambulatory Encounter Jennifer Manning [facility] Adult Medicine UNK - Ambulatory Encounter Jennifer Malin [facility] Adult Medicine UNK - Ambulatory Encounter Jennifer Malin [facility] Adult Medicine UNK - Ambulatory Encounter Jennifer Strickland-Carlos [facility] Adult Medicine OverweightBMI 31.0-31.9Tobacco useObesityMedication, long-term useLiver function abnormality - Ambulatory Encounter Lilo Amaro [facility] Adult Medicine UNK - Ambulatory Encounter Steve Archuleta [facility] Adult Medicine UNK - Ambulatory Encounter Ramiro Samayoa [facility] Adult Medicine Microalbuminuria - Ambulatory Encounter Ramiro Rizzo [facility] Adult Medicine UNK - Ambulatory Encounter Ramiro Rizzo [facility] Adult Medicine UNK - Ambulatory Encounter Ramiro Friend'Isidro Arellano [facility] Adult Medicine HyperlipidemiaBMI 29.0- 29.9BMI 31.0-31.9 - Ambulatory Encounter Rinal Herbert [facility] Adult Medicine UNK - Ambulatory Encounter Ana Laura Escobedo [facility] Vision UNK - Ambulatory Encounter Alice [facility] Services UNK - Ambulatory Encounter Janice Villalpando [facility] Staffing And Scheduling Coordinator UNK - Ambulatory Encounter Rinal Herbert Wasilla Anisa [facility] Adult Medicine UNK - Ambulatory Encounter Rinal Herbert [facility] Adult Medicine UNK - Ambulatory Encounter Rinal Herbert Aleja Villalpando [place] Anisa [facility] Adult Medicine UNK - Ambulatory [...] Adult Medicine UNK - Ambulatory Encounter Rinal Herbertlucinda Parsonluci Escobedo [facility] Adult Medicine UNK - Ambulatory Encounter Beth Jc C Adult Medicine UNK - Ambulatory Encounter Ramiro Hare O'Isidro Campos Jc [facility] Adult Medicine UNK - Ambulatory Encounter Ramiro Rizzo [facility] Adult Medicine UNK - Ambulatory En[facility] - Ambulatory Encounter Ramiro Rizzo [facility] Adult Medicine UNK - Ambulatory Encounter Ramiro Rizzo [facility] Adult Medicine UNK - Ambulatory Encounter Ramiro Rizzo [facility] Adult Medicine UNK - Ambulatory Encounter Ramiro Sharma [facility] Adult Medicine Immunization updatePreventive health careColorectal screeningProstate Cancer, Screening - Ambulatory Encounter Ramiro Guerra [facility] Adult Medicine UNK - Ambulatory Encounter R[facility]ro [facility]izzo [facility] - Ambulatory Encounter Ramiro Rizzo [facility] Adult Medicine UNK - Ambulatory Encounter Ramiro Rizzo [facility] Adult Medicine UNK - Ambulatory Encounter [facility] UNK - Ambulatory Encounter Fax Status LinkLogic [facility] Services UNK - Ambulatory Encounter Fax Status [facility] UNK - Ambulatory Encounter Fax Status [facility] UNK - Ambulatory Encounter Ramiro Rizzo [facility] Adult Medicine UNK - Ambulatory Encounter Ramiro Friend'Isidro Andria Garcia Miki [facility] Adult Medicine BMI 32.0-32.9Candidal balanitisBMI 29.0-29.9Preventive health carePeripheral vascular insufficiencyColorectal screeningProstate Cancer, Screening - Ambulatory Encounter Ramiro Friend'Isidro Friend'Isidro LinkLogic [facility] Adult Medicine UNK - Ambulatory Encounter Ramiro Friend'Isidro Hare O'Isidro [facility]ic [facility] Adult Medicine UNK - Ambulatory Encounter Lacey Hall [facility] Dental UNK - Ambulatory Encounter Ramiro Friend'Isidro Hare O'Isidro Munoz [facility] UNK - Ambulatory Encounter Ramiro Friend'Isidro Rizzo [facility] Adult Medicine UNK - Ambulatory Encounter Ramiro Friend'Isidro Friend'Isidro Arellano [facility] Adult Medicine BronchitisCandidal balanitisImmunization update - Ambulatory Encounter Mag Son [facility] Adult Medicine UNK - Ambulatory Encounter Ramiro Friend'Isidro Friend'Isidro Guerra [facility] Adult Medicine UNK - Ambulatory Encounter Ramiro Friend'Isidro [facility] Adult Medicine UNK - Ambulatory Encounter Ramiro Friend'Isidro Rizzo [employer] Adult Medicine UNK - Ambulatory Encounter Ramiro Rizzo [facility] Adult Medicine UNK - Ambulatory Encounter Ramiro Friend'Isidro Friend'Isidro Archuleta [facility] Adult Medicine BMI 32.0-32.9Bronchitis - Ambulatory Encounter Ramiro Friend'Isidro [facility] Adult Medicine UNK - Ambulatory Encounter Ramiro Friend'Isidro [facility] Adult Medicine UNK - Ambulatory Encounter Ramiro Friend'Isidro Mag Huy [facility] Adult Medicine Helicobacter pylori gastrointestinal tract infectionVaccination Against Influenza - Ambulatory Encounter Florencio Chon [facility] Adult Medicine UNK - Ambulatory Encounter Anna Connell [facility] Adult Medicine UNK - Ambulatory Encounter Anna Connell [facility] Adult Medicine UNK - Ambulatory Encounter Ramiro Friend'Isidro Friend'Isidro [facility] Adult Medicine UNK - Ambulatory Encounter Av Tinajero LM Adult Medicine UNK - Ambulatory Encounter Ramiro Friend'Isidro Friend'Isidro [facility] Adult Medicine UNK - Ambulatory Encounter Ramiro Friend'Isidro Arellano [facility] Adult Medicine UNK - Ambulatory Encounter Ramiro Friend'Isidro Friend'Isidro [facility]ic [facility] Adult Medicine UNK - Ambulatory Encounter Ramiro Friedn'Isidro [facility] Adult Medicine UNK - Ambulatory Encounter Ramiro Friend'Isidro Friend'Isidro [facility] Adult Medicine UNK - Ambulatory Encounter Ramiro Friend'Isidro Sharma Eileen [facility] Adult Medicine Abdominal pain, left upper quadrant - Ambulatory Encounter Ramiro Friend'Isidro Friend'Isidro LM Adult Medicine UNK - Ambulatory Encounter Ramiro Friend'Isidro Friend'Isidro LinkLogic [facility] Adult Medicine UNK - Ambulatory Encounter Av Tinajero [facility] Adult Medicine UNK - Ambulatory Encounter Ramiro Friend'sIidro Hare O'Isidro [facility] Adult Medicine UNK - [...] Ambulatory Encounter Ramiro Hare O'Isidro Hare O'Isidro Arellano [facility] Adult Medicine UNK - Ambulatory Encounter Ramiro Hare O'Isidro Hare O'Isidro [facility] Adult Medicine UNK - Ambulatory Encounter Ramiro Friend'Isidro Hare O'Isidro [facility] Adult [facility] Diabetes mellitus, type IIErectile dysfunctionHyperlipidemiaHelicobacter pylori gastrointestinal tract infectionVitamin D deficiency - Ambulatory Encounter Ramiro Friend'Isidro Hare O'Isidro [facility] Adult Medicine UNK - Ambulatory Encounter Yuri Derek [facility] Adult Medicine UNK - Ambulatory Encounter Yuri Derek [facility] Adult Medicine UNK - Ambulatory Encounter Ramiro Friend'Isidro Hare O'Isidro [facility] Adult Medicine UNK - Ambulatory Encounter Ramiro Friend'Isidro Rizzo Zachary Garzais [facility] Adult Medicine OverweightHypertensionDiabetes mellitus, type IIAbdominal pain, left upper quadrantHx of syncopeErectile dysfunctionDiabetic peripheral neuropathy - Ambulatory Encounter Ramiro Mills [facility] UNK - Ambulatory Encounter Av Tinajero [facility] Adult Medicine UNK - Ambulatory Encounter Av Tinajero [facility] Adult Medicine UNK VITAL SIGNS No Information [...] blood glucose, random 144 mg/dL Co Юлия Hampton blood glucose, random 198 mg/dL Co [facility] hemoglobin A1C, blood, as % of total [...] 4.8-5.6 High blood glucose, fasting 138 mg/dL Wasilla Anisa microalbumin/total urine volume 2318.5 mg/L LinkLogic [...] LinkLogic 3.4-10.8 blood glucose, random 120 mg/dL [facility] blood glucose, random 200 mg/dL [facility] Quantiferon Gold TB blood test for [...] Take 1 tablet by mouth daily - Rinjay Herbert FLONASE ALLERGY RELIEF 50 MCG/ACT NASAL [...] Date Observation Value Provider Exercise Program Referral Chelsey Bennett " Weight Management Counseling Provided Chelsey Bennett " Nutrition intervention T Co Юлия Moxey " drug use, illicit Never Co Юлия Moxey " alcohol use Never Co Юлия Moxey " social history reviewed E&M reviewed today Co Юлия Moxey " sexual orientation Heterosexual Co Юлия Moxey " assessment of health literacy ([facility] 2014 Standards, 3C10) Adequate Co Юлия Moxey [...] " assessment of health literacy ([facility] 2014 Standards, 3C10) Adequate Co Юлия Moxey " passive cigarette smoke exposure Yes Co Юлия Moxey " smoking status current every day smoker Co Юлия Moxey time of call 06/27/2019 10:24 AM Rebecca Browning Exercise Program Referral T Rinal Herbert " Weight Management Counseling Provided T Rinal Herbert " Nutrition intervention T Rinal Herbert " drug use, illicit Never Steve Archuleta " alcohol use Never Steve Archuleta " social history reviewed E&M reviewed today Steve Archuleta " is there any chance that you could be ? No Steve Archuleta " assessment of health literacy ([facility] 2014 Standards, 3C10) Adequate Steve Archuleta " passive cigarette smoke exposure No Steve Archuleta " smoking status current every day smoker Steve Archuleta smoking, advice to quit Yes Paula Norman " cigarettes, number smoked per day 5-6 Paula Norman " drug use, illicit Never Lornayelya Roberto " alcohol use Never Mamtaa Roberto " smoking status current every day smoker John Mejia " social history reviewed E&M reviewed today John Mejia " assessment of health literacy ([facility] 2014 Standards, 3C10) Adequate John Mejia " [...] " assessment of health literacy ([facility] 2014 Standards, 3C10) Adequate Cathy Quintanilla " passive cigarette smoke exposure No Cathy Dwight " smoking status current every day smoker Cathy Dwight time of call 10/25/2018 9:14 AM Angle Avila social history reviewed E&M reviewed today Jennifer Malin " drug use, illicit Never Aamir Manning " alcohol use Never Aamir Manning " Occupation #1 [employer] Aamir Manning " sexual orientation Heterosexual Aamir Manning " assessment of health literacy ([facility] 2014 Standards, 3C10) Adequate Aamir Manning " [...] today Zachary Eileen drug use, illicit Never Wasilla Anisa " alcohol use Never Wasilla Anisa " social history reviewed E&M reviewed today Savanna Anisa " passive cigarette smoke exposure No Savanna Anisa " smoking status current every day smoker Wasilla Anisa " Exercise Program Referral T Savanna Lange " Weight Management Counseling Provided T Savanna [...] 9:59 AM Tammy Ragsdale Exercise Program Referral T Ramiro Rizzo " [...] Steve Archuleta " drug use, illicit Never Steve Archuleta " social history reviewed E&M reviewed today Steve Archuleta " cigarettes, number smoked per day 1-4 Sagrariodaniela Geremias " smoking status current every day smoker Steve Archuleta " passive cigarette smoke exposure No Stvee Archuleta " is there any chance that you could be ? 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 [id number] Sliding 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 [employer] Other FAMILY PLANNING*TITLE V Medicaid [facility] [id number] Sliding Fee Scale 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 [id number] Family Planning/WHFPT Medicaid [id number] [employer] Other [id number] ADVANCE DIRECTIVES Name Date DISCUSSED - NO [...] - - - Nephrology - Adult - [facility] Ofc Vst, Est Level IV Ofc Vst, Est Level IV Ofc Vst, Est Level IV Ofc Vst, Est Level IV Ofc Vst, Est Level IV Vision Dental - Internal Nephrology - Adult - [facility] INFLUENZA VACCINE QUADRIVALENT 3 YRS PLUS IM Admin of Vaccine - Injection - 1 Est Patient Detailed - 39310 Nephrology - Adult - [facility] Est Patient Detailed - 73609 Ofc Vst, Est Level IV Glucose Stick Prescription Assistance (Non-HIV) Ofc Vst, Est Level IV Vision Diabetes Education Endocrinology - Adult - C Est Patient Detailed - 42609 Est Patient Well Exam (40 - 64 Yrs) - 65446 Pneumovax Vaccine PPSV23 Admin of Vaccine - Injection - 1 Est Patient Detailed - 96841 Prevnar (PCV13) IM TDAP Admin of Vaccine - Injection - Each Add'l Admin of Vaccine - Injection - 1 Est Patient Detailed - 06849 Est Patient Exp Problem - 48149 Est Patient Exp Problem - 64537 Est Patient Exp Problem - 45393 Est Patient Problem Focus - 87372 Glucose Stick Est Patient Exp Problem - 68193 Glucose Stick Venipuncture Handling of specimen for transfer New Patient Comprehensive - 45117 HISTORY OF PROCEDURES Procedure Date Procedure Name Provider Procedure Notes Status Glucose Stick Jessica Herbert completed Glucose Stick Ramiro Rizzo completed Glucose Stick Ramiro Rizzo completed Venipuncture Ramiro iRzzo completed GOALS No Information Available HEALTH [facility]CERNS No Information Available
--- OUTSIDE RECORDS SUMMARY | 2019-10-07 22:56 | XMS REPORT ---
Author Author Admin, Clyde Organization Unknown Address Unknown Phone Unavailable PROBLEMS [...] Encounter Diagnosis - Ambulatory Encounter Paula Castropard [facility] Adult Medicine UNK - Ambulatory Encounter Co Юлия Bennett [facility] Adult Medicine UNK - Ambulatory Encounter Co Юлия Bennett [facility] Adult Medicine UNK - Ambulatory Encounter Paula Norman LinkLogic [facility] Adult Medicine UNK - Ambulatory Encounter Paula Castropard [facility] Adult Medicine CKD stage 4 (gfr 15-29) - Ambulatory Encounter Paula Norman LinkLogic [facility] Adult Medicine UNK - Ambulatory Encounter Paula Norman [facility] Adult Medicine Asymptomatic microscopic hematuria - Ambulatory Encounter Paula Norman LinkLogic [facility] Adult Medicine UNK - Ambulatory Encounter Paula Norman LinkLogic [facility] Adult Medicine UNK - Ambulatory Encounter Paula Norman [facility] Adult Medicine UNK - Ambulatory Encounter Paula Norman Rinal Herbert Co Юлия Bennett [facility] Adult Medicine UNK - Ambulatory Encounter Paula Norman Co Юлия Bennett [facility] Adult Medicine UNK - Ambulatory Encounter Paula Norman LM Adult Medicine UNK - Ambulatory Encounter Paula Norman LM Adult Medicine UNK - Ambulatory Encounter Paula Norman Radha [place] Юлия Steinbergjone [facility] Adult Medicine Diabetes mellitus, type IIMedication, long-term useAllergic rhinitis, seasonalRash and other nonspecific skin eruptionBurn, 10-19% BSA, L great toe - Ambulatory Encounter Co Юлия Bennett [facility] Adult Medicine UNK - Ambulatory Encounter Paula Norman [facility]ton [facility] [place] [facility]K - Ambulatory Encounter Jessica Herbert [facility] Adult Medicine UNK - Ambulatory Encounter Paula Norman [facility] Adult Medicine UNK - Ambulatory Encounter Bethene Greene [facility] Adult Medicine UNK - Ambulatory Encounter Bethene Greene Paula Norman [facility] Adult Medicine UNK - Ambulatory Encounter Paula Norman LinkLogic [facility] Adult Medicine UNK - Ambulatory Encounter Paula Norman LinkLogic [facility] Adult Medicine UNK - Ambulatory Encounter Jessica Herbert LM Adult Medicine UNK - Ambulatory Encounter Jessica Archuleta [facility] Adult Medicine UNK - Ambulatory Encounter Paula Norman [facility] Adult Medicine UNK - Ambulatory Encounter Paula Canalesd LM Adult Medicine UNK - Ambulatory Encounter Paula Norman John Mejia [facility] Adult Medicine Allergic rhinitis, seasonalRash and other nonspecific skin eruption - Ambulatory Encounter Paula Norman Abbemagda Geremias Espinosa [facility] Adult Medicine UNK - Ambulatory Encounter Paula Norman LinkLogic [facility] Adult Medicine UNK - Ambulatory Encounter Paula Norman LinkLogic [facility] Adult Medicine UNK - Ambulatory Encounter Jessica Herbert LinkLogic [facility] Adult Medicine UNK - Ambulatory Encounter Anh Samayoa [facility] Adult Medicine UNK - Ambulatory Encounter Linda Contreras [facility] UNK - Ambulatory Encounter Steve Archuleta [facility] Adult Medicine UNK - Ambulatory Encounter Ramiro [facility] Adult Medicine UNK - Ambulatory Encounter Paula Norman [facility] Adult Medicine UNK - Ambulatory Encounter Paula Norman Cathy Archuleta [facility] Adult Medicine UNK - Ambulatory Encounter Jessica Herbert [facility] Adult Medicine UNK - Ambulatory Encounter Angle Avila [facility] UNK - Ambulatory Encounter [place] [facility] Adult Medicine UNK - Ambulatory Encounter Anh Samayoa [facility] Adult Medicine UNK - [facility] - Ambulatory Encounter Jose Armando Gonzalez [facility] Adult Medicine UNK - Ambulatory Encounter Jennifer Malin [facility] Adult Medicine UNK - Ambulatory Encounter Aamir Manning [facility] Adult Medicine UNK - Ambulatory Encounter Fax Status [facility] UNK - Ambulatory Encounter Fax Status [facility] UNK - Ambulatory Encounter Jennifer Manning [facility] Adult Medicine UNK - Ambulatory Encounter Fax Status [facility] UNK - Ambulatory Encounter Fax Status [facility] UNK - Ambulatory Encounter Fax Status [facility] UNK - Ambulatory Encounter Jennifer Manning [facility] Adult Medicine UNK - Ambulatory Encounter Jennifer Malin [facility] Adult Medicine UNK - Ambulatory Encounter Jennifer Malin [facility] Adult Medicine UNK - Ambulatory Encounter Jennifer Manning [facility] Adult Medicine OverweightBMI 31.0-31.9Tobacco useObesityMedication, long-term useLiver function abnormality - Ambulatory Encounter Lilo Amaro [facility] Adult Medicine UNK - Ambulatory Encounter Steve Archuleta [facility] Adult Medicine UNK - Ambulatory Encounter Ramiro Samayoa [facility] Adult Medicine Microalbuminuria - Ambulatory Encounter Ramiro Rizzo [facility] Adult Medicine UNK - Ambulatory Encounter Ramiro Rizzo [facility] Adult Medicine UNK - Ambulatory Encounter Ramiro Hare ONicky Hare O'Isidro Zachary Eileen [facility] Adult Medicine HyperlipidemiaBMI 29.0- 29.9BMI 31.0-31.9 - Ambulatory Encounter Rinal Herbert [facility] Adult Medicine UNK - Ambulatory Encounter Ana Laura Escobedo [facility] Vision UNK - Ambulatory Encounter [facility] UNK - Ambulatory Encounter Janice Villalpando [facility] Environmental Education Specialist UNK - Ambulatory Encounter Rinal Herbert Savanna Anisa [facility] Adult Medicine UNK - Ambulatory Encounter Rinal Herbert [facility] Adult Medicine UNK - Ambulatory Encounter Rinal Herbert Aleja Castroel Anisa [facility] Adult Medicine UNK - Ambulatory [...] UNK - Ambulatory Encounter Rinal Herbert Aydee Du Escobedo [facility] Adult Medicine UNK - Ambulatory Encounter Beth Jc [facility] Adult Medicine UNK - Ambulatory Encounter Ramiro Hare O'Isidro Hare ONicky Greene [facility] Adult Medicine UNK - Ambulatory Encounter Ramiro Rizzo [facility] Adult Medicine UNK - Ambulatory Encounter Ramiro Rizzo LinkLog[employer] [facility] Adult Medicine UNK - Ambulatory Encounter Ramiro Rizzo [facility] Adult Medicine UNK - Ambulatory Encounter Ramiro Rizzo [facility] Adult Medicine UNK - Ambulatory Encounter Ramiro Rizzo [facility] Adult Medicine UNK - Ambulatory Encounter Ramiro Sharma [facility] Adult Medicine Immunization updatePreventive health careColorectal screeningProstate Cancer, Screening - Ambulatory Encounter Ramiro Guerra [facility] Adult Medicine UNK - Ambulatory Encounter [facility] - [facility] - [facility]ulatory Encounter [facility] UNK - Ambulatory Encounter Ramiro Rizzo LinkLogduy [facility] Adult Medicine UNK - Ambulatory Encounter Fax Status [facility] UNK - Ambulatory Encounter Fax Status [facility] UNK - Ambulatory Encounter Fax Status [facility] UNK - Ambulatory Encounter Ramiro Rizzo [facility] Adult Medicine UNK - Ambulatory Encounter Ramiro Friend'Isidro Livingston [facility] Adult Medicine BMI 32.0-32.9Candidal balanitisBMI 29.0-29.9Preventive health carePeripheral vascular insufficiencyColorectal screeningProstate Cancer, Screening - Ambulatory Encounter Ramiro Friend'Isidro Hare O'Isidro JacobsenLogic [facility] Adult Medicine UNK - Ambulatory Encounter Ramiro Friend'Isidro H[facility] - Ambulatory Encounter Lacey Hall [facility] Dental UNK - Ambulatory Encounter Ramiro Friend'Isidro Hare O'Isidro [facility] UNK - Ambulatory Encounter Ramiro Friend'Isidro Rizzo [facility] Adult Medicine UNK - Ambulatory Encounter Ramiro Friend'Isidro Friend'Isidro Arellano [facility] Adult Medicine BronchitisCandidal balanitisImmunization update - Ambulatory Encounter Mag Son [facility] Adult Medicine UNK - Ambulatory Encounter Ramiro Friend'Isidro Guerra [facility] Adult Medicine UNK - Ambulatory Encounter Ramiro Friend'Isidro [facility] Adult Medicine UNK - Ambulatory Encounter Ramiro Friend'Isidro [facility] UNK - Ambulatory Encounter Ramiro Friend'Isidro Friend'Isidro [facility] Adult Medicine UNK - Ambulatory Encounter Ramiro Friend'Isidro Hare O'Isidro Archuleta [facility] Adult Medicine BMI 32.0-32.9Bronchitis - Ambulatory Encounter Ramiro Rizzo [facility] Adult Medicine UNK - Ambulatory Encounter Ramiro Friend'Isidro Friend'Isidro [facility] Adult Medicine UNK - Ambulatory Encounter Ramiro Son [facility] Adult Medicine Helicobacter pylori gastrointestinal tract infectionVaccination Against Influenza - Ambulatory Encounter Florencio Chon [facility] Adult Medicine UNK - Ambulatory Encounter Anna Connell [facility] Adult Medicine UNK - Ambulatory Encounter Anna Connell [facility] Adult Medicine UNK - Ambulatory Encounter Ramiro Rizzo LinkLogic [facility] Adult Medicine UNK - Ambulatory Encounter Av Lior [facility] Adult Medicine UNK - Ambulatory Encounter Ramiro Rizzo [facility] Adult Medicine UNK - Ambulatory Encounter Ramiro Friend'Isidro Arellano [facility] Adult Medicine UNK - Ambulatory Encounter Ramiro Rizzo LinkLogic [facility] Adult Medicine UNK - Ambulatory Encounter Ramiro Friend'Isidro [facility] Adult Medicine UNK - Ambulatory Encounter Ramiro Friend'Isidro [facility] Adult Medicine UNK - Ambulatory Encounter Ramiro Friend'Isidro Sharma Eileen [facility] Adult Medicine Abdominal pain, left upper quadrant - Ambulatory Encounter Ramiro Friend'Isidro [facility] Adult Medicine UNK - Ambulatory Encounter Ramiro Payam O'Isidro Hare [facility]idro [facility] Adult Medicine [...] Medicine UNK - Ambulatory Encounter Ramiro Hare O'sIidro Hare O'Isidro [facility] Adult Medicine UNK - Ambulatory Encounter Ramiro Hare O'Isidro Hare O'Isidro [facility] Adult Medicine UNK - Ambulatory Encounter Ramiro Hare O'Isidro Hare O'Isidro Zachary Eileen [facility] Adult Medicine UNK - Ambulatory Encounter Ramiro Hare O'Isidro Hare O'Isidro [facility] Adult Medicine UNK - Ambulatory Encounter Ramiro Hare O'Isidro Hare [facility]'Is[facility]ro [facility] Adult Medicine Diabetes mellitus, [...] - Ambulatory Encounter Ramiro Rizzo Zachary Arellano [facility] Adult Medicine OverweightHypertensionDiabetes mellitus, type IIAbdominal pain, left upper quadrantHx of syncopeErectile dysfunctionDiabetic peripheral neuropathy - Ambulatory Encounter Ramiro Rizzo [facility] UNK - Ambulatory Encounter Av Tinajero [facility] Adult Medicine UNK - Ambulatory Encounter Av Tinajero [facility] Adult Medicine UNK VITAL SIGNS No Information [...] LinkLogic 1.005-1.030 blood glucose, random 144 mg/dL Juan Luis Bennett blood glucose, random 198 mg/dL Juan Luis Redman Idrisxjone hemoglobin A1C, blood, as % of total [...] High blood glucose, fasting 138 mg/dL Savanna Wadezy microalbumin/total urine volume 2318.5 mg/L LinkLogic Not [...] 3.4-10.8 blood glucose, random 285 mg/dL Zachary Eileen hemoglobin A1C, blood, as [...] High blood glucose, random 252 mg/dL Mag Cartagenas thyroid stimulating hormone, serum 2.920 u[iU]/mL LinkLogic [...] LinkLogic 3.4-10.8 blood glucose, random 120 mg/dL [facility] blood glucose, random 200 mg/dL [facility] Quantiferon Gold TB blood test for [...] MEDICATION USE Medication Instructions Dates Provider Comments HUMALOG 100 UNIT/ML SUBCUTANEOUS SOLUTION inject 4 units pre meal Three Times a Day Paula Norman MUPIROCIN 2 % EXTERNAL OINTMENT apply 4 [...] 1 tab by mouth twice a day - Paula Norman DIFLUCAN 150 MG ORAL TABLET 1 tab by mouth now. Repeat in three days. - Ramiro Rizzo FARXIGA 5 MG ORAL TABLET Take 1 tablet by mouth daily - Jessica Herbert FLONASE ALLERGY RELIEF 50 MCG/ACT NASAL SUSPENSION 1 spray in each nostril every day As Needed - Jennifer SANCHEZ DM 30-2-10 MG/5ML ORAL SYRUP 10 mL [...] Provider Exercise Program Referral T Co Юлия Moxey " Weight Management Counseling Provided T Co Юлия Moxey " Nutrition intervention T Co Юлия Moxey " drug use, illicit Never Co Юлия Moxey " alcohol use Never Co Юлия Moxey " social history reviewed E&M reviewed today Co Юлия Moxey " sexual orientation Heterosexual Co Юлия Moxey " assessment of health literacy ([facility] 2014 Standards, 3C10) Adequate Co Юлия [...] Юлия Moxey " assessment of health literacy ([facility] 2014 Standards, 3C10) Adequate Co Юлия Moxey " passive cigarette smoke exposure Yes Co Юлия Moxey " smoking status current every day smoker Co Юлия Moxey time of call 06/27/2019 10:24 AM Rebecca Browning Exercise Program Referral T Rinal Herbert " Weight Management Counseling Provided T Rinjay Herbert " Nutrition intervention T Rinal Herbert " drug use, illicit Never Abbely Geremias " alcohol use Never Abbely Geremias " social history reviewed E&M reviewed today Steve Archuleta " is there any chance that you could be ? No Steve Archuleta " assessment of health literacy ([facility] 2014 Standards, 3C10) Adequate Nalexjely Geremias " passive cigarette smoke exposure No Nazjely Geremias " smoking status current every day smoker Steve Archuleta smoking, advice to quit Yes Paula Norman " cigarettes, number smoked per day 5-6 Apula Norman " drug use, illicit Never Loraina Roberto " alcohol use Never Loraina Roberto " smoking status current every day smoker John Mejia " social history reviewed E&M reviewed today John Roberto " assessment of health literacy ([facility] 2014 Standards, 3C10) Adequate John Roberto " passive cigarette smoke exposure No John Roberto " Exercise Program Referral T John Roberto " Weight Management Counseling Provided T Mamtasujata Mejia " Nutrition intervention Chelsey Hermelindamarilee Rboerto time of call 01/09/2019 9:58 AM Meghan Contreras smoking, advice to quit Yes Paula Canalesd " Exercise Program Referral T Paula Norman " Weight Management Counseling Provided T Paula Norman " Nutrition intervention T Paula Norman " social history reviewed E&M reviewed today Cathy Dwight " sexual orientation Heterosexual Cathy Quintanilla " is there any chance that you could be ? No Cathy Quintanilla " assessment of health literacy ([facility] 2014 Standards, 3C10) Adequate Cathy Quintanilla " passive cigarette smoke exposure No Cathy Dwight " smoking status current every day smoker Cathy Dwight time of call 10/25/2018 9:14 AM Angle Avila social history reviewed E&M reviewed today Jennifer Malin " drug use, illicit Never Aamir Manning " alcohol use Never Aamir Manning " Occupation #1 [employer] Aamir Manning " sexual orientation Heterosexual Aamir Manning " assessment of health literacy ([facility] 2014 Standards, 3C10) Adequate Aamir Manning [...] today Zachary Eileen drug use, illicit Never [place] Anisa " alcohol use Never [place] Anisa " social history reviewed E&M reviewed today [place] Anisa " passive cigarette smoke exposure No Savanna Anisa " smoking status current every day smoker Savannalucinda Wadezy " Exercise Program Referral T Savanna Lange " Weight Management Counseling Provided T Savanna Lange " Nutrition intervention T Savanna Lawrencey Exercise Program Referral T Jessica Herbert " Weight Management Counseling Provided T Jessica Herbert " Nutrition intervention T Jessica Herbert " drug use, illicit Never Channrohan Main " alcohol use Never Channrohan Main " is there any chance that you could be ? No Channin Main " smoking status current every day smoker Channin Main Exercise Program Referral T Ramiro Rizzo [...] " Weight Management Counseling Provided T Ramiro iRzzo " Nutrition intervention T Ramiro Rizzo " [...] Yes Ramiro Rizzo " Exercise Program Referral T Ramiro Rizzo " Weight Management Counseling Provided T Ramiro Friend'Isidro " Nutrition intervention Chelsey Rizzo " alcohol use Never Steve Archuleta " drug use, illicit Never Steve Archuleta " social history reviewed E&M reviewed today Steve Archuleta " cigarettes, number smoked per day 1-4 Steve Archuleta " smoking status current every [...] Rizzo " drug use, illicit Never Zachary Eielen " alcohol use Never Zachary Eileen " [...] judgment and insight E&M intact Ramiro Payam Friend'Isidro " Generalized Anxiety Disorder Questionnaire - Question [...] and person Ramiro Friend'Isidro " assessment of mood and affect E&M [...] 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 [id number] Family Planning/WHFPT Medicaid [id number] [employer] Other [id number] ADVANCE DIRECTIVES Name Date DISCUSSED - NO [...] - - - Nephrology - Adult - LM Ofc Vst, Est Level IV Ofc Vst, Est Level IV Ofc Vst, Est Level IV Ofc Vst, Est Level IV Ofc Vst, Est Level IV [facility] - Internal Nephrology - Adult - [facility] INFLUENZA VACCINE QUADRIVALENT 3 YRS PLUS IM Admin of Vaccine - Injection - 1 Est Patient Detailed - 59806 Nephrology - Adult - [facility] Est Patient Detailed - 10809 Ofc Vst, Est Level IV Glucose Stick Prescription Assistance (Non-HIV) Ofc Vst, Est Level IV Vision Diabetes Education Endocrinology - Adult - [facility] Est Patient Detailed - 20079 Est Patient Well Exam (40 - 64 Yrs) - 76121 Pneumovax Vaccine PPSV23 Admin of Vaccine - Injection - 1 Est Patient Detailed - 86865 Prevnar (PCV13) IM TDAP Admin of Vaccine - Injection - Each Add'l Admin of Vaccine - Injection - 1 Est Patient Detailed - 92688 Est Patient Exp Problem - 63046 Est Patient Exp Problem - 48772 Est Patient Exp Problem - 77118 Est Patient Problem Focus - 98352 Glucose Stick Est Patient Exp Problem - 01403 Glucose Stick Venipuncture Handling of specimen for transfer New Patient Comprehensive - 79384 HISTORY OF PROCEDURES Procedure Date Procedure Name Provider Procedure Notes Status Glucose Stick Rinal Herbert completed Glucose Stick Ramiro Rizzo completed Glucose Stick Ramiro Rizzo completed Venipuncture Ramiro Rizzo completed GOALS No Information Available [facility] No Information Available
--- OUTSIDE RECORDS SUMMARY | 2019-10-07 22:57 | XMS REPORT ---
Author Author Admin, [place] Organization Unknown Address Unknown Phone Unavailable PROBLEMS [...] Helicobacter pylori gastrointestinal tract infection completed - Raimro Rizzo Hyperlipidemia active Ramiro Rizzo Diabetic peripheral neuropathy active Ramiro Rizzo Erectile dysfunction active Ramiro Rizzo T level appropriate Hx of syncope active Ramiro Rizzo Abdominal pain, left upper quadrant completed - Ramiro Rizzo Diabetes mellitus, type II active Paula Castropard Hypertension active Ramiro Rizzo Overweight completed - Jennifer Malin ENCOUNTERS Date Type Provider Location Encounter Diagnosis - Ambulatory Encounter Paula Castropard [facility] Adult Medicine UNK - Ambulatory Encounter Paula Castroparmalina Castropard [facility] Adult Medicine UNK - Ambulatory Encounter Paula Castroparmalina Castropard [facility] Adult Medicine UNK - Ambulatory Encounter Paula Castropard LM Adult Medicine UNK - Ambulatory Encounter Co Юлия Bennett C Adult Medicine UNK - Ambulatory Encounter Co Юлия Bennett C Adult Medicine UNK - Ambulatory Encounter Paula Castropard Paula Castropard LinkLogic [facility] Adult Medicine UNK - Ambulatory Encounter Paula Castropard [facility] Adult Medicine CKD stage 4 (gfr 15-29) - Ambulatory Encounter Paula Castropard [facility] LM Adult Medicine UNK - Ambulatory Encounter Paula Castroparmalina Castropard [facility] Adult Medicine Asymptomatic microscopic hematuria - Ambulatory Encounter Paula Castroparmalina Castropard [facility] LM Adult Medicine UNK - Ambulatory Encounter Paula Castropard LinkLogic [facility] Adult Medicine UNK - Ambulatory Encounter Paula Norman LM Adult Medicine UNK - Ambulatory Encounter Paula Norman Jessica Herbert Co Юлия Steinbergjone [facility] Adult Medicine UNK - Ambulatory Encounter Paula Norman Co Юлия Steinbergjone [facility] Adult Medicine UNK - Ambulatory Encounter Paula Norman [facility] Adult Medicine UNK - Ambulatory Encounter Paula Norman [facility] Adult Medicine UNK - Ambulatory Encounter Paula Norman Radha Livingston Co Юлия [facility] Adult Medicine Diabetes mellitus, type IIMedication, long-term useAllergic rhinitis, seasonalRash and other nonspecific skin eruptionBurn, 10-19% BSA, L great toe - Ambulatory Encounter Co Юлия Steinbergjone [facility] Adult Medicine UNK - Ambulatory Encounter Paula Norman Peyton Orr [facility] [place] UNK - Ambulatory Encounter Ellaal Keon [facility] Adult Medicine UNK - Ambulatory Encounter Paula Norman [facility] Adult Medicine UNK - Ambulatory Encounter Bethene Greene [facility] Adult Medicine UNK - Ambulatory Encounter Bethene Greene Paula Norman LM Adult Medicine UNK - Ambulatory Encounter Paula Norman LinkLogic [facility] Adult Medicine UNK - Ambulatory Encounter Paula Norman LinkLogic [facility] Adult Medicine UNK - Ambulatory Encounter Rinal Herbert [facility] Adult Medicine UNK - Ambulatory Encounter Rinal Herbert Steve Archuleta [facility] Adult Medicine UNK - Ambulatory Encounter Paula Norman LM Adult Medicine UNK - Ambulatory Encounter Paula Norman [facility] Adult Medicine UNK - Ambulatory Encounter Paula Norman John Mejia [facility] Adult Medicine Allergic rhinitis, seasonalRash and other nonspecific skin eruption - Ambulatory Encounter Paula Norman Steve Espinosa [facility] Adult Medicine UNK - Ambulatory Encounter Paula Norman LinkLogic [facility] Adult Medicine UNK - Ambulatory Encounter Paula Norman LinkLogic [facility] Adult Medicine UNK - Ambulatory Encounter Jessica Herbert LinkLogic [facility] Adult Medicine UNK - Ambulatory Encounter Anh Samayoa [facility] Adult Medicine UNK - Ambulatory Encounter [facility] UNK - Ambulatory Encounter Steve Archuleta [facility] Adult Medicine UNK - [facility] - Ambulatory Encounter Paula Norman [facility] Adult Medicine UNK - Ambulatory Encounter Paula Norman aCthy Archuleta [facility] Adult Medicine UNK - Ambulatory Encounter Jessica Herbert [facility] Adult Medicine UNK - Ambulatory Encounter Angle Avila [facility] Public Health Services UNK - Ambulatory Encounter New Adrogue Anh Samayoa [facility] Adult Medicine UNK - Ambulatory Encounter Anh Samayoa [facility] Adult Medicine UNK - Ambulatory Encounter Ramiro JacobsenLogduy [facility] Adult Medicine UNK - Ambulatory Encounter Jose Armando Gonzalez LM Adult Medicine UNK - Ambulatory Encounter Jennifer Malin [employer]Log[employer] [facility] Adult Medicine UNK - Ambulatory Encounter Aamir Manning [facility] Adult Medicine UNK - Ambulatory Encounter [facility] - [facility]ulatory Encounter [facility] UN[facility] - Ambulatory Encounter Jennifer Manning [facility] Adult Medicine UNK - Ambulatory Encounter F[facility] UNK - Ambulatory Encounter F[facility] UNK - Ambulatory Encounter [facility] UNK - Ambulatory Encounter Jennifer Manning [facility] Adult Medicine UNK - Ambulatory Encounter Jennifer Malin [facility] Adult Medicine UNK - Ambulatory Encounter Jennifer Malin [facility] Adult Medicine UNK - Ambulatory Encounter Jenniefr Avila Aamir Manning [facility] Adult Medicine OverweightBMI 31.0-31.9Tobacco useObesityMedication, long-term useLiver function abnormality - Ambulatory Encounter Lilo Amaro [facility] Adult Medicine UNK - Ambulatory Encounter Steve Archuleta [facility] Adult Medicine UNK - Ambulatory Encounter Ramiro Rizzo Anh Yao [facility] Adult Medicine Microalbuminuria - Ambulatory Encounter Ramiro Hare O'Isidro Hare O'Isidro LinkLogic [facility] Adult Medicine UNK - Ambulatory Encounter Ramiro Hare O'Isidro Hare O'Isidro [facility] Adult Medicine UNK - Ambulatory Encounter Ramiro Hare O'Isidro Hare O'Isidro Zachary Eileen [facility] Adult Medicine HyperlipidemiaBMI 29.0- 29.9BMI 31.0-31.9 - Ambulatory Encounter Rinal Herbert [facility] LM Adult Medicine UNK - Ambulatory Encounter Ana Laura Escobedo [facility] Vision UNK - [facility] - Ambulatory Encounter Janice Villalpando [facility] Facility Security Officer UNK - Ambulatory Encounter Rinal Herbert Helen Anisa [facility] Adult Medicine UNK - Ambulatory Encounter Rinal Herbert [facility] Adult Medicine UNK - Ambulatory Encounter Rinal Herbert Aleja Geremias Villalpando [facility] Adult Medicine UNK - Ambulatory [...] Adult Medicine UNK - Ambulatory Encounter Jessica Bryson Ana Laura Gregg [facility] Adult Medicine UNK - Ambulatory Encounter Bethene Greene [facility] Adult Medicine UNK - Ambulatory Encounter Ramiro Friend'Isidro Greene [facility] Adult Medicine UNK - Ambulatory Encounter Ramiro Friend'Isidro [facility] Adult Medicine UNK - Ambulatory Encounter [facility] - Ambulatory Encounter Ramiro Friend'Isidro [facility] Adult Medicine UNK - Ambulatory Encounter Ramiro Friend'Isidro [facility] Adult Medicine UNK - Ambulatory Encounter Ramiro Friend'Isidro [facility] Adult Medicine UNK - Ambulatory Encounter Ramiro Sharma [facility] Adult Medicine Immunization updatePreventive health careColorectal screeningProstate Cancer, Screening - Ambulatory Encounter Ramiro Guerra [facility] Adult Medicine UNK - Ambulatory En[facility] - Ambulatory Encounter Ramiro Rizzo [facility] Adult Medicine UNK - Ambulatory Encounter Ramiro Friend'Isidro [facility] Adult Medicine UNK - Ambulatory En[facility] UNK - Ambulatory Encounter Fax Status [facility] UNK - Ambulatory Encounter Fax Status [facility] UNK - Ambulatory Encounter Fax Status [facility] UNK - Ambulatory Encounter Ramiro Rizzo [facility] Adult Medicine UNK - Ambulatory Encounter Ramiro Friend'Isidro Livingston [facility] Adult Medicine BMI 32.0-32.9Candidal balanitisBMI 29.0-29.9Preventive health carePeripheral vascular insufficiencyColorectal screeningProstate Cancer, Screening - Ambulatory Encounter Ramiro Rizzo Link[employer] [facility] Adult Medicine UNK - Ambulatory Encounter Ramiro [facility]idro [facility] UNK - Ambulatory Encounter Lacey Hall [facility] Dental UNK - Ambulatory Encounter Ramiro Jones [facility] UNK - Ambulatory Encounter Ramiro Rizzo [facility] Adult Medicine UNK - Ambulatory Encounter Ramiro Arellano [facility] Adult Medicine BronchitisCandidal balanitisImmunization update - Ambulatory Encounter Mag Son [facility] Adult Medicine UNK - Ambulatory Encounter Ramiro Guerra [facility] Adult Medicine UNK - Ambulatory Encounter Ramiro Friend'Isidro [facility] Adult Medicine UNK - Ambulatory Encounter Ramiro Rizzo [facility] LM Adult Medicine UNK - Ambulatory Encounter Ramiro Friend'Isidro LM Adult Medicine UNK - Ambulatory Encounter Ramiro Friend'Isidro Steve Archuleta [facility] Adult Medicine BMI 32.0-32.9Bronchitis - Ambulatory Encounter Ramiro Friend'Isidro Friend'Isidro LM Adult Medicine UNK - Ambulatory Encounter Ramiro Friend'Isidro Friend'Isidro LM Adult Medicine UNK - Ambulatory Encounter Ramiro Friend'Isidro Friend'Isidro Mag Huy [facility] Adult Medicine Helicobacter pylori gastrointestinal tract infectionVaccination Against Influenza - Ambulatory Encounter Florencio Givens [facility] Adult Medicine UNK - Ambulatory Encounter Anna Connell LM Adult Medicine UNK - Ambulatory Encounter Anna Connell [facility] LM Adult Medicine UNK - Ambulatory Encounter Ramiro Friend'Isidro [facility] LM Adult Medicine UNK - Ambulatory Encounter Av Tinajero LM Adult Medicine UNK - Ambulatory Encounter Ramiro Friend'Isidro LM Adult Medicine UNK - Ambulatory Encounter Ramiro Arellano LM Adult Medicine UNK - Ambulatory [...] infectionVitamin D deficiency - Ambulatory Encounter Ramiro Hare O'Isidro Hare O'Isidro [facility] Adult Medicine UNK - Ambulatory Encounter Yuri Reed [facility] Adult Medicine UNK - Ambulatory Encounter Yuri Reed [facility] Adult Medicine UNK - Ambulatory Encounter Ramiro iRzzo [facility] Adult Medicine UNK - Ambulatory Encounter Ramiro Rizzo Zachary Arellano [facility] Adult Medicine OverweightHypertensionDiabetes mellitus, type IIAbdominal pain, left upper quadrantHx of syncopeErectile dysfunctionDiabetic peripheral neuropathy - Ambulatory Encounter Ramiro Rizzo [facility] UNK - Ambulatory Encounter Av Tinajero [facility] Adult Medicine UNK - Ambulatory Encounter Av Tinajero [facility] Adult Medicine UNK VITAL SIGNS No Information [...] 1.005-1.030 blood glucose, random 144 mg/dL [facility] blood glucose, random 198 mg/dL [facility] hemoglobin A1C, blood, as % of total [...] LinkLogic 3.4-10.8 blood glucose, random 120 mg/dL [facility] blood glucose, random 200 mg/dL [facility] Quantiferon Gold TB blood test for tuberculosis [...] LinkLog 37.5-51.0 " hemoglobin, blood 14.3 g/dL LinkLogic [...] By Mouth Twice a Day - Paula Canalesd BD PEN NEEDLE SHORT U/F 31G X 8 MM use for lantus injections Jessica Herbert LANTUS SOLOSTAR 100 UNIT/ML SUBCUTANEOUS SOLUTION PEN-INJECTOR inject 20 units daily at 9 AM Jessica Herbert 3 month supply TRIAMCINOLONE ACETONIDE 0.1 % EXTERNAL CREAM apply to affected area three times a day as needed for itching and red rash Paula Castropard NASONEX 50 MCG/ACT NASAL SUSPENSION 2 sprays each nostril every day Paula Castropard LORATADINE 10 MG ORAL TABLET 1 By Mouth once a day as needed for allergies Paula Castropard HYDRALAZINE HCL 25 MG ORAL TABLET 1 tab By Mouth Three Times a Day Paula Canalesd GLIPIZIDE 10 MG ORAL TABLET 1 tab By Mouth Twice a Day - Paula Canalesd LANTUS SOLOSTAR 100 UNIT/ML SUBCUTANEOUS SOLUTION PEN-INJECTOR inject 20 units take at bedtime - Paula Castropard ATORVASTATIN CALCIUM 20 MG ORAL TABLET 1 tab By Mouth Every Day Paula Norman HYDROCHLOROTHIAZIDE 25 MG ORAL TABLET 1 by mouth every day Jennifer Malin CHLORTHALIDONE 25 MG ORAL TABLET 1 tab By Mouth Every Morning - Jennifer Malin LISINOPRIL 40 MG ORAL TABLET 1 by mouth every day Paula Castropard NIFEDIPINE ER 90 MG ORAL TABLET EXTENDED RELEASE 24 HOUR 1 by mouth every day - Jennifer Malin JANUVIA 100 MG TABLET TAKE ONE TABLET BY MOUTH EVERY DAY - Paula Norman GLIPIZIDE 10 MG ORAL TABLET take 1 tablet Twice a Day - Paula Norman JANUVIA 50 MG ORAL TABLET 1 By Mouth once a day - Ramiro Rizzo DIFLUCAN 150 MG ORAL TABLET 1 by mouth now. May repeat in three days. - Ramiro Payam O'Isidro METFORMIN HCL 1000 MG ORAL TABLET 1 [...] Юлия Moxey " assessment of health literacy ([facility] 2014 Standards, 3C10) Adequate Co [...] Юлия Moxey " assessment of health literacy ([facility] 2014 Standards, 3C10) Adequate Co [...] Steve Archuleta " assessment of health literacy ([facility] 2014 Standards, 3C10) Adequate Steve Archuleta " passive cigarette smoke exposure No Steve Archuleta " smoking status current every day smoker Steve Archuleta smoking, advice to quit Yes Paula Norman " cigarettes, number smoked per day 5-6 Paula Canalesd " drug use, illicit Never Mamtaa Roberto " alcohol use Never Mamtaa Roberto " smoking status current every day smoker John Mejia " social history reviewed E&M reviewed today John Mejia " assessment of health literacy ([facility] 2014 Standards, 3C10) Adequate Hermelindanayelya Roberto " passive cigarette smoke exposure No [...] Cathy Quintanilla " assessment of health literacy ([facility] 2014 Standards, 3C10) Adequate Cathy Quintanilla " passive cigarette smoke exposure No Cathy Quintanilla " smoking status current every day smoker Cathy Dwight time of call 10/25/2018 9:14 AM Angle Avila social history reviewed E&M reviewed today Jennifer Malin " drug use, illicit Never Aamir Manning " alcohol use Never Aamir Manning " Occupation #1 [employer] Aamir Manning " sexual orientation Heterosexual Aamir Manning " assessment of health literacy ([facility] 2014 Standards, 3C10) Adequate Aamir [...] today Zachary Eileen drug use, illicit Never Helen Anisa " alcohol use Never Savanna Anisa " social history reviewed E&M reviewed today Helen Anisa " passive cigarette smoke exposure No Helen Anisa " smoking status current every day smoker Savanna Anisa " Exercise Program Referral T Helen Anisa " Weight Management Counseling Provided T Helen Anisa " Nutrition intervention T Helen Anisa Exercise Program Referral T Rinjay Herbert " Weight Management Counseling Provided T Rinal Herbert " Nutrition intervention T Rinal Keon " drug use, illicit Never Aydee Quach [...] " smoking status current every day smoker Nadaniela Archuleta " passive cigarette smoke exposure No Nalexjely Geremias " is there any chance that [...] Counseling Provided Chelsey Rizzo " Nutrition intervention Chelsye Rizzo " passive cigarette smoke exposure No [...] insight E&M intact Ramiro Payam O'Isidro " assessment of mood and affect E&M Appropriate affect without agitation Ramiro Payam O'Isidro " Generalized Anxiety Disorder Questionnaire - Question 2 0 Mag Son " Generalized Anxiety Disorder Questionnaire - Question 1 0 Mag Son assessment of judgment and insight E&M intact Ramiro Payam O'Isidro " assessment of mood [...] Disorder Questionnaire - Question 1 0 Zacharyamanda Garzais assessment of judgment and insight E&M intact Ramiro Payam Rizzo " assessment of mood and affect E&M no depression, anxiety, or agitation Ramiro Rizzo " Generalized Anxiety Disorder Questionnaire - Question 2 0 Zachary Eileen " Generalized Anxiety Disorder Questionnaire - Question 1 0 Zacharyamanda Garzais assessment of judgment and insight E&M [...] name Policy type / Coverage type Covered democrat ID Sliding 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 [id number] [facility] [employer] [id number] Sliding Fee - Cat 1 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 Dialoggy [id number] Sliding Fee - Cat 1 [employer] insurance company [employer] Other FAMILY PLANNING*TITLE V [id number] Sliding Fee Scale [employer] [id number] Family Planning/WHFPT Medicaid [id number] [employer] Other [id number] ADVANCE DIRECTIVES Name Date DISCUSSED - NO [...] - - - Nephrology - Adult - [facility] Ofc Vst, Est Level IV Ofc Vst, Est Level IV Ofc Vst, Est Level IV Ofc Vst, Est Level IV Ofc Vst, Est Level IV [facility] - Internal Nephrology Adult [facility] INFLUENZA VACCINE QUADRIVALENT 3 YRS PLUS IM Admin of Vaccine - Injection - 1 Est Patient Detailed - 71222 Nephrology - Adult [facility] Est Patient Detailed - 53320 Ofc Vst, Est Level IV Glucose Stick Prescription Assistance (Non-HIV) Ofc Vst, Est Level IV Vision Diabetes Education Endocrinology - Adult [facility] Est Patient Detailed - 89823 Est Patient Well Exam (40 - 64 Yrs) - 17052 Pneumovax Vaccine PPSV23 Admin of Vaccine - Injection - 1 Est Patient Detailed - 12910 Prevnar (PCV13) IM TDAP Admin of Vaccine - Injection - Each Add'l Admin of Vaccine - Injection - 1 Est Patient Detailed - 55368 Est Patient Exp Problem - 45084 Est Patient Exp Problem - 15147 Est Patient Exp Problem - 67224 Est Patient Problem Focus - 34116 Glucose Stick Est Patient Exp Problem - 98264 Glucose Stick Venipuncture Handling of specimen for transfer New Patient Comprehensive - 52678 HISTORY OF PROCEDURES Procedure Date Procedure Name Provider Procedure Notes Status Glucose Stick Jessica Herbert completed Glucose Stick Ramiro Rizzo completed Glucose Stick Ramiro Rizzo completed Venipuncture Ramiro Rizzo completed GOALS No Information Available [facility] No Information Available
--- OUTSIDE RECORDS SUMMARY | 2019-10-07 22:58 | XMS REPORT ---
Author Author Admin, Philip Organization Unknown Address Unknown Phone Unavailable PROBLEMS [...] - Ramiro Rizzo BMI 29.0-29.9 completed - Ramrio Rizzo Immunization update completed - Ramiro Rizzo [...] Encounter Diagnosis - Ambulatory Encounter Paula Castropard [facility] Adult Medicine UNK - Ambulatory Encounter Paula Castroparmalina Castropard [facility] Adult Medicine UNK - Ambulatory Encounter Paula Castroparmalina Castropard [facility] Adult Medicine UNK - Ambulatory Encounter Paula Castropard LM Adult Medicine UNK - Ambulatory Encounter Co Юлия Bennett C Adult Medicine UNK - Ambulatory Encounter Co Юлия Bennett C Adult Medicine UNK - Ambulatory Encounter Paula Castropard Paula Castropard [employer] [facility] Adult Medicine UNK - Ambulatory Encounter Paula Castropard [facility] Adult Medicine CKD stage 4 (gfr 15-29) - Ambulatory Encounter Paula Castropard [employer] LM Adult Medicine UNK - Ambulatory Encounter Paula Castroparmalina Castropard [facility] Adult Medicine Asymptomatic microscopic hematuria - Ambulatory Encounter Paula Castroparmalina Castropard [employer] LM Adult Medicine UNK - Ambulatory Encounter Paula Castropard [employer] [facility] Adult Medicine UNK - Ambulatory Encounter Paula Norman LM Adult Medicine UNK - Ambulatory Encounter Paula Norman Jessica Herbert Co Юлия Steinbergjone [facility] Adult Medicine UNK - Ambulatory Encounter Paula Norman Co Юлия Steinbergjone [facility] Adult Medicine UNK - Ambulatory Encounter Paula Norman [facility] Adult Medicine UNK - Ambulatory Encounter Paula Norman [facility] Adult Medicine UNK - Ambulatory Encounter Paula Norman Radha [place] Юлия [facility] Adult Medicine Diabetes mellitus, type IIMedication, long-term useAllergic rhinitis, seasonalRash and other nonspecific skin eruptionBurn, 10-19% BSA, L great toe - Ambulatory Encounter Co Юлия Steinbergjone [facility] Adult Medicine UNK - Ambulatory Encounter Paula Norman Peyton Orr [facility] [place] UNK - Ambulatory Encounter Ellaal Keon [facility] Adult Medicine UNK - Ambulatory Encounter Paula Norman [facility] Adult Medicine UNK - Ambulatory Encounter Bethene Greene [facility] Adult Medicine UNK - Ambulatory Encounter Bethene Greene Paula Norman LM Adult Medicine UNK - Ambulatory Encounter Paula Norman [employer] [facility] Adult Medicine UNK - Ambulatory Encounter Paula Norman [employer] [facility] Adult Medicine UNK - Ambulatory Encounter Rinal Herbert [facility] Adult Medicine UNK - Ambulatory Encounter Rinal Herbert Steve Archuleta [facility] Adult Medicine UNK - Ambulatory Encounter Paula Norman LM Adult Medicine UNK - Ambulatory Encounter Paula Norman [facility] Adult Medicine UNK - Ambulatory Encounter Paula Norman John Mejia [facility] Adult Medicine Allergic rhinitis, seasonalRash and other nonspecific skin eruption - Ambulatory Encounter Paula Norman Steve Espinosa [facility] Adult Medicine UNK - Ambulatory Encounter Paula Norman [employer] [facility] Adult Medicine UNK - Ambulatory Encounter Paula Norman [employer] [facility] Adult Medicine UNK - Ambulatory Encounter Jessica Herbert [employer] [facility] Adult Medicine UNK - Ambulatory Encounter Anh Samayoa [facility] Adult Medicine UNK - Ambulatory Encounter Linda Contreras [facility] UNK - Ambulatory Encounter Steve Archuleta [facility] Adult Medicine UNK - [facility] - Ambulatory Encounter Paula Norman [facility] Adult Medicine UNK - Ambulatory Encounter Paula Norman Cathy Archuleta [facility] Adult Medicine UNK - Ambulatory Encounter Jessica Herbert [facility] Adult Medicine UNK - Ambulatory Encounter Angle Avila [facility] Public [facility] Services UNK - Ambulatory Encounter [place] Anh Samayoa [facility] Adult Medicine UNK - Ambulatory Encounter Anh Samayoa [facility] Adult Medicine UNK - Ambulatory Encounter Ramiro JacobsenLogduy [facility] Adult Medicine UNK - Ambulatory Encounter Jose Armando Gonzalez LM Adult Medicine UNK - Ambulatory Encounter Jennifer Malin [employer] [facility] Adult Medicine UNK - Ambulatory Encounter Aamir Manning [facility] Adult Medicine UNK - Ambulatory [facility] - Ambulatory Encounter Jennifer Manning [facility] Adult Medicine UNK - Ambulatory Encounter [facility] - [facility]counter [facility] - [facility] - Ambulatory Encounter Jennifer Manning [facility] Adult Medicine UNK - Ambulatory Encounter Jennifer Malin [facility] Adult Medicine UNK - Ambulatory Encounter Jennifer Malin [facility] Adult Medicine UNK - Ambulatory Encounter Jennifer Avila Aamir Manning [facility] Adult Medicine OverweightBMI 31.0-31.9Tobacco useObesityMedication, long-term useLiver function abnormality - Ambulatory Encounter Lilo Amaro [facility] Adult Medicine UNK - Ambulatory Encounter Steve Archuleta [facility] Adult Medicine UNK - Ambulatory Encounter Ramiro Rizzo Anh Ayo [facility] Adult Medicine Microalbuminuria - Ambulatory Encounter Ramiro Hare O'Isidro Hare O'Isidro [employer] Adult Medicine UNK - Ambulatory Encounter Ramiro Hare O'Isidro Hare O'Isidro [facility] Adult Medicine UNK - Ambulatory Encounter Ramiro Hare O'Isidro Hare O'Isidro Zachary Eileen [facility] Adult Medicine HyperlipidemiaBMI 29.0- 29.9BMI 31.0-31.9 - Ambulatory Encounter Rinal Herbert [employer] LM Adult Medicine UNK - Ambulatory Encounter Ana Laura Escobedo [facility] Vision UNK - [facility] - [facility]ulatory Encounter Janice Villalpando [facility] Application Systems Architect UNK - Ambulatory Encounter Rinal Herbert Hollis Anisa [facility] Adult Medicine UNK - Ambulatory Encounter Rinal Herbert [facility] Adult Medicine UNK - Ambulatory Encounter Rinal Herbert Aleja Geremias Villalpando Hollis Anisa [facility] Adult Medicine UNK - Ambulatory [...] Ambulatory Encounter Jessica Bryson Ana Laura Gregg [facility] Adult Medicine UNK - Ambulatory Encounter Bethene Greene [facility] Adult Medicine UNK - Ambulatory Encounter Ramiro Friend'Isidro Greene [facility] Adult Medicine UNK - Ambulatory Encounter Ramiro Friend'Isidro [facility] Adult Medicine UNK - Ambulatory Encounter [facility] - Ambulatory Encounter Ramiro Friend'Isidro [facility] Adult Medicine UNK - Ambulatory Encounter Ramiro Friend'Isidro [facility] Adult Medicine UNK - Ambulatory Encounter Ramiro Friend'Isidro [facility] Adult Medicine UNK - Ambulatory Encounter Ramiro Sharma [facility] Adult Medicine Immunization updatePreventive health careColorectal screeningProstate Cancer, Screening - Ambulatory Encounter Ramiro Guerra [facility] Adult Medicine UNK - Ambulatory En[facility] - Ambulatory Encounter Ramiro Rizzo [facility] Adult Medicine UNK - Ambulatory Encounter Ramiro Friend'Isidro [facility] Adult Medicine UNK - Ambulatory En[facility] - Ambulatory Encounter [facility] - [facility]ulatory Encounter [facility] UNK - Ambulatory Encounter F[facility] UNK - Ambulatory Encounter Ramiro Rizzo [facility] Adult Medicine UNK - Ambulatory Encounter Ramiro Friend'Isidro [place] [facility] Adult Medicine BMI 32.0-32.9Candidal balanitisBMI 29.0-29.9Preventive health carePeripheral vascular insufficiencyColorectal screeningProstate Cancer, Screening - Ambulatory Encounter Ramiro Rizzo [employer] [facility] Adult Medicine UNK - Ambulatory Encounter [facility] UNK - Ambulatory Encounter Lacey Hall [facility] Dental UNK - Ambulatory Encounter Ramiro Jones [facility] UNK - Ambulatory Encounter Ramiro Rizzo [facility] Adult Medicine UNK - Ambulatory Encounter Ramiro Arellano [facility] Adult Medicine BronchitisCandidal balanitisImmunization update - Ambulatory Encounter Mag Son [facility] Adult Medicine UNK - Ambulatory Encounter Ramiro Guerra [facility] Adult Medicine UNK - Ambulatory Encounter Ramiro Friend'Isidro [facility] Adult Medicine UNK - Ambulatory Encounter Ramiro Rizzo [employer] LM Adult Medicine UNK - Ambulatory Encounter Ramiro Friend'Isidro LM Adult Medicine UNK - Ambulatory Encounter Ramiro Friend'Isidro Steve Archuleta [facility] Adult Medicine BMI 32.0-32.9Bronchitis - Ambulatory Encounter Ramiro Friend'Isidro Friend'Isidro LM Adult Medicine UNK - Ambulatory Encounter Ramiro Friend'Isidro Friend'Isidro LM Adult Medicine UNK - Ambulatory Encounter Ramiro Friend'Isidro Friend'Isidro Mag Huy [facility] Adult Medicine Helicobacter pylori gastrointestinal tract infectionVaccination Against Influenza - Ambulatory Encounter Florencio Givens [facility] Adult Medicine UNK - Ambulatory [...] Medicine UNK - Ambulatory Encounter Yuri Reed [facility] Adult Medicine UNK - Ambulatory Encounter Yuri Reed [facility] Adult Medicine UNK - Ambulatory Encounter Ramiro Rizzo [facility] Adult Medicine UNK - Ambulatory Encounter Ramiro Rizzo Zachary Arellano [facility] Adult Medicine OverweightHypertensionDiabetes mellitus, type IIAbdominal pain, left upper quadrantHx of syncopeErectile dysfunctionDiabetic peripheral neuropathy - Ambulatory Encounter R[facility]ro Riz[facility] UNK - Ambulatory Encounter Av Tinajero [facility] Adult Medicine UNK - Ambulatory Encounter Av Tinajero [facility] Adult Medicine UNK VITAL SIGNS [...] 1.005-1.030 blood glucose, random 144 mg/dL Co [facility] blood glucose, random 198 mg/dL [facility] hemoglobin A1C, blood, as % of [...] [employer]Logic 3.4-10.8 blood glucose, random 120 mg/dL [facility] blood glucose, random 200 mg/dL [facility] Quantiferon Gold TB blood test for tuberculosis [...] Юлия Moxey " assessment of health literacy ([employer] 2014 Standards, 3C10) Adequate Co Юлия Moxey [...] Юлия Moxey " assessment of health literacy ([employer] 2014 Standards, 3C10) Adequate Co Юлия Moxey [...] Steve Archuleta " assessment of health literacy ([employer] 2014 Standards, 3C10) Adequate Steve Archuleta " [...] John Mejia " assessment of health literacy ([employer] 2014 Standards, 3C10) Adequate Hermelindanayelya Roberto " passive cigarette smoke exposure No Loraina Roberto " Exercise Program Referral T John Mejia " Weight Management Counseling Provided T John Mejia " Nutrition intervention T John Mejia time of call 01/09/2019 9:58 AM Meghan Contreras smoking, advice to quit Yes Paula Nomran " Exercise Program Referral T Paula Castropard " Weight Management Counseling Provided T Paula Castropard " Nutrition intervention T Paula Castropard " social history reviewed E&M reviewed today Cathy Dwight " sexual orientation Heterosexual Cathy Quintanilla " is there any chance that you could be ? No Cathy Quintanilla " assessment of health literacy ([employer] 2014 Standards, 3C10) Adequate Cathy Quintanilla " passive cigarette smoke exposure No Cathy Quintanilla " smoking status current every day smoker Cathy Dwight time of call 10/25/2018 9:14 AM Angle Avila social history reviewed E&M reviewed today Jennifer Malin " drug use, illicit Never Aamir Manning " alcohol use Never Aamir Manning " Occupation #1 [employer] Aamir Manning " sexual orientation Heterosexual Aamir Manning " assessment of health literacy ([employer] 2014 Standards, 3C10) Adequate Aamir Manning " [...] today Zachary Eileen drug use, illicit Never Hollis Anisa " alcohol use Never Savanna Anisa " social history reviewed E&M reviewed today Hollis Anisa " passive cigarette smoke exposure No Hollis Anisa " smoking status current every day smoker Savanna Anisa " Exercise Program Referral T Hollis Anisa " Weight Management Counseling Provided T Hollis Anisa " Nutrition intervention T Hollis Anisa Exercise Program Referral T Rinjay Herbert [...] 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 [id number] [facility] [employer] [id number] Sliding Fee - Cat 1 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 [employer] [id number] Sliding Fee - Cat 1 [employer] insurance company [facility] [employer] Other FAMILY PLANNING*TITLE V [id number] Sliding Fee Scale [employer] insurance [employer] [id number] Family Planning/WHFPT Medicaid [id number] [employer] Other [id number] ADVANCE DIRECTIVES Name Date DISCUSSED - NO [...] IV [facility] - Internal Nephrology Adult [facility] INFLUENZA VACCINE QUADRIVALENT 3 YRS PLUS IM Admin of Vaccine - Injection - 1 Est Patient Detailed - 63821 Nephrology - Adult [facility] Est Patient Detailed - 66721 Ofc Vst, Est Level IV Glucose Stick Prescription Assistance (Non-HIV) Ofc Vst, Est Level IV Vision Diabetes Education Endocrinology - Adult [facility] Est Patient Detailed - 45737 Est Patient Well Exam (40 - 64 Yrs) - 51427 Pneumovax Vaccine PPSV23 Admin of Vaccine - Injection - 1 Est Patient Detailed - 14178 Prevnar (PCV13) IM TDAP Admin of Vaccine - Injection - Each Add'l Admin of Vaccine - Injection - 1 Est Patient Detailed - 21785 Est Patient Exp Problem - 12399 Est Patient Exp Problem - 88429 Est Patient Exp Problem - 72258 Est Patient Problem Focus - 08065 Glucose Stick Est Patient Exp Problem - 81952 Glucose Stick Venipuncture Handling of specimen for transfer New Patient Comprehensive - 69967 HISTORY OF PROCEDURES Procedure Date Procedure Name Provider Procedure Notes Status Glucose Stick Jessica Herbert completed Glucose Stick Ramiro Rizzo completed Glucose Stick Ramiro Rizzo completed Venipuncture Ramiro Rizzo completed GOALS No Information Available [facility] No Information Available
--- OUTSIDE RECORDS SUMMARY | 2019-10-07 22:59 | XMS REPORT ---
Author Author Admin, [place] Organization Unknown Address Unknown Phone Unavailable PROBLEMS [...] Provider Location Encounter Diagnosis - Ambulatory Encounter Rachana Beltre [place] [facility] ADVIS[facility] UNK - Ambulatory Encounter Paula Castropard [place] [facility] UNK - Ambulatory Encounter Paula Castropard [place] [facility] UNK - Ambulatory Encounter Paula Castropard LM Adult Medicine UNK - Ambulatory Encounter Paula Castropard [place] [facility] UNK - Ambulatory Encounter Co Юлия Bennett [place] [facility] UNK - Ambulatory Encounter Co Юлия Bennett [place] [facility] UNK - Ambulatory Encounter Paula Norman [facility] [place] [facility] UNK - Ambulatory Encounter Paula Castropard [place] [facility] CKD stage 4 (gfr 15-29) - Ambulatory Encounter Paula Castropard [facility] [place] [facility] UNK - Ambulatory Encounter Paula Castropard [place] [facility] Asymptomatic microscopic hematuria - Ambulatory Encounter Paula Castropard [facility] [place] [facility] UNK - Ambulatory Encounter Paula Norman [facility] UNK - Ambulatory Encounter Paula Norman [facility] UNK - Ambulatory Encounter Paula Norman Ellajay Herbert Co Юлия Steinbergxjone [facility] UNK - Ambulatory Encounter Paula Norman Co Юлия Steinbergxjone [facility] Adult [facility] UNK - Ambulatory Encounter Paula Norman [facility] UNK - Ambulatory Encounter Paula Norman [facility] UNK - Ambulatory Encounter Paula Norman Radha [place] Co Юлия Moxjone C Adult Medicine Diabetes mellitus, type IIMedication, long-term useAllergic rhinitis, seasonalRash and other nonspecific skin eruptionBurn, 10-19% BSA, L great toe - Ambulatory Encounter Co Юлия Steinbergxjone [facility] UNK - Ambulatory Encounter Paula Norman Peyton Orr [facility] - Ambulatory Encounter Jessica Herbert [facility] UNK - Ambulatory Encounter Paula Norman [facility] UNK - Ambulatory Encounter Beth Jc [facility] UNK - Ambulatory Encounter Bethene Norman [facility] UNK - Ambulatory Encounter Paula Norman [facility] UNK - Ambulatory Encounter Paula Norman [facility] Adult [facility] UNK - Ambulatory Encounter Rinal Herbert [facility] Adult [facility] UNK - Ambulatory Encounter Jessica Archuleta [place] [facility] UNK - Ambulatory Encounter Paula Norman [place] [facility] UNK - Ambulatory Encounter Paula Norman [place] [facility] UNK - Ambulatory Encounter Paula Norman John Mejia [place] [facility] Allergic rhinitis, seasonalRash and other nonspecific skin eruption - Ambulatory Encounter Paula Norman Steve Espinosa [place] [facility] UNK - Ambulatory Encounter Paula Norman [facility] [place] [facility] UNK - Ambulatory Encounter Paula Norman [facility] [place] [facility] UNK - Ambulatory Encounter Jessica Herbert [facility] [place] [facility] UNK - Ambulatory Encounter Anh Samayoa [place] [facility] UNK - Ambulatory Encounter Linda Contreras [facility] UNK - Ambulatory Encounter Steve Archuleta [place] [facility] UNK - Ambulatory Encounter Ramiro Bishop [facility]herence [place] [facility] UNK - Ambulatory Encounter Paula Norman [place] [facility] UNK - Ambulatory Encounter Paula Norman Cathy Archuleta [place] [facility] UNK - Ambulatory Encounter Jessica Herbert [place] [facility] UNK - Ambulatory Encounter Angle Avila [facility] Services UNK - Ambulatory Encounter New Adrogue Anh Samayoa [place] [facility] UNK - Ambulatory Encounter Anh Samayoa LM Adult Medicine UNK - Ambulatory Encounter Ramiro JacobsenLogduy [place] [facility] UNK - Ambulatory Encounter Jose Armando Gonzalez LM Adult Medicine UNK - Ambulatory Encounter Jennifer JacobsenLogduy [place] [facility] UNK - Ambulatory Encounter Aamir Manning [place] [facility] UNK - Ambulatory Encounter [facility] - Ambulatory Encounter Fax Status [facility] UNK - Ambulatory Encounter Jennifer Manning [place] [facility] UNK - Ambulatory Encounter [facility] - Ambulatory Encounter [facility] - [facility] - Ambulatory Encounter Jennifer Manning [place] [facility] UNK - Ambulatory Encounter Jennifer Malin LM Adult Medicine UNK - Ambulatory Encounter Jennifer Malin LM Adult Medicine UNK - Ambulatory Encounter Jennifer Strickland-Carlos Aamir Manning [place] [facility] OverweightBMI 31.0-31.9Tobacco useObesityMedication, long-term useLiver function abnormality - Ambulatory Encounter Lilo Amaro LM Adult Medicine UNK - Ambulatory Encounter Steve Archuleta [place] [facility] UNK - Ambulatory Encounter Ramiro Hare ONicky Rizzo [place] Yao [place] [facility] Microalbuminuria - Ambulatory Encounter Ramiro Friend'Isidro Hare O'Isidro Link[facility]ic [facility] Adult Medicine UNK - Ambulatory Encounter Ramiro Friend'Isidro Rizzo [facility] Adult Medicine UNK - Ambulatory Encounter Ramiro Hare O'Isidro Hare O'Isidro Zachary Eileen [facility] Adult Medicine HyperlipidemiaBMI 29.0- 29.9BMI 31.0-31.9 - Ambulatory Encounter Rinal Herbert [facility] LM Adult Medicine UNK - Ambulatory Encounter Ana Laura Escobedo [place] [facility] UNK - Ambulatory Encounter Alice Malagon [facility] UNK - Ambulatory Encounter Janice Villalpando [place] [employer] [facility] UNK - Ambulatory Encounter Rinal Herbert [place] Anisa [facility] UNK - Ambulatory Encounter Rinal Herbert [facility] UNK - Ambulatory Encounter Rinal Herbert Aleja Geremias Castroel Anisa [facility] Adult [facility] UNK - [...] Medicine UNK - Ambulatory Encounter Jessica Herbert [place] [facility] UNK - Ambulatory Encounter Jessica Keon Escobedo [place] [facility] UNK - Ambulatory Encounter Beth Jc [place] [facility] UNK - Ambulatory Encounter Ramiro Greene [place] [facility] UNK - Ambulatory Encounter Ramiro Rizzo [facility] Adult Medicine UNK - Ambulatory Encounter [facility] - Ambulatory Encounter Ramiro Rizzo [facility] Adult Medicine UNK - Ambulatory Encounter Ramiro Rizzo [facility] Adult Medicine UNK - Ambulatory Encounter Ramiro Rizzo [facility] Adult Medicine UNK - Ambulatory Encounter Ramiro Sharma [facility] Adult Medicine Immunization updatePreventive health careColorectal screeningProstate Cancer, Screening - Ambulatory Encounter Ramiro Guerra [place] [facility] UNK - Ambulatory Encounter [facility] - [facility]ulatory Encounter Ramiro Rizzo [facility] Adult Medicine UNK - Ambulatory Encounter Ramiro Rizzo [facility] Adult Medicine UNK - Ambulatory En[facility] UN[facility] - Ambulatory Encounter Fax Status [facility] Services UNK - Ambulatory Encounter Fax Status [facility] acute hospital UNK - Ambulatory Encounter [facility] - Ambulatory Encounter Ramiro Friend'Isidro [facility] Adult Medicine UNK - Ambulatory Encounter Ramiro Friend'Isidro Friend'Isidro Loveon Eileen Living[place] [facility] Adult Medicine BMI 32.0-32.9Candidal balanitisBMI 29.0-29.9Preventive health carePeripheral vascular insufficiencyColorectal screeningProstate Cancer, Screening - Ambulatory Encounter Ramiro Friend'Isidro Friend'Isidro [facility] [place] [facility] UNK - Ambulatory Encounter Ramiro Friend'Isidro Friend'Isidro [facility] [place] [facility] UNK - Ambulatory Encounter Lacey Hall [place] Dental UNK - Ambulatory Encounter Ramiro Friend'Isidro Hare O'Isidro Jones Acuña [facility] Services Contact Center UNK - Ambulatory Encounter Ramiro Friend'Isidro Friend'Isidro [facility] Adult Medicine UNK - Ambulatory Encounter Ramiro Friend'Isidro Friend'Isidro Arellano [place] [facility] BronchitisCandidal balanitisImmunization update - Ambulatory Encounter Mag Son [place] [facility] UNK - Ambulatory Encounter Ramiro Friend'Isidro Friend'Isidro Guerra [place] [facility] UNK - Ambulatory Encounter Ramiro Friend'Isidro Friend'Isidro LM Adult Medicine UNK - Ambulatory Encounter Ramiro Friend'Isidro Hare O'Isidro [facility]ic LM Adult Medicine UNK - Ambulatory Encounter Ramiro Friend'Isidro Hare O'Isidro LM Adult Medicine UNK - Ambulatory Encounter Ramiro Friend'Isidro Hare O'Isidro Steve Archuleta [place] [facility] BMI 32.0-32.9Bronchitis - Ambulatory Encounter Ramiro Friend'Isidro Hare O'Isidro LM Adult Medicine UNK - Ambulatory Encounter Ramiro Friend'Isidro Hare O'Isidro [place] [facility] UNK - Ambulatory Encounter Ramiro Friend'Isidro Friend'Isidro Son [place] [facility] Helicobacter pylori gastrointestinal tract infectionVaccination Against Influenza - Ambulatory Encounter Florenciodenisse Givens [place] [facility] UNK - Ambulatory Encounter Anna Connell LM Adult Medicine UNK - Ambulatory Encounter Anna Connell [facility] LM Adult Medicine UNK - Ambulatory Encounter Ramiro Friend'Isidro Hare O'Isidro [facility] LM Adult Medicine UNK - Ambulatory Encounter Av Tinajero LM Adult Medicine UNK - Ambulatory Encounter Ramiro Friend'Isidro Friend'Isidro LM Adult Medicine UNK - Ambulatory Encounter Ramiro Friend'Isidro Friend'Isidro Arellano [place] [facility] UNK - Ambulatory Encounter Ramiro Friend'Isidro Hare O'Isidro [facility] [place] [facility] UNK - Ambulatory Encounter Ramiro Friend'Isidro Hare O'Isidro LM Adult Medicine UNK - Ambulatory Encounter Ramiro Friend'Isidro Friend'Isidro [facility] Adult [facility] UNK - Ambulatory Encounter Ramiro Friend'Isidro Zachary Eileen LM Adult Medicine Abdominal pain, left upper quadrant - Ambulatory Encounter Ramiro Friend'Isidro Hare O'Isidro [facility] Adult [facility] UNK - Ambulatory Encounter Ramiro Hare O'Isidro Hare O'Isidro [facility] Adult Medicine UNK - Ambulatory Encounter Av Tinajero [facility] Adult Medicine UNK - Ambulatory Encounter Ramiro Friend'Isidro Hare O'Isidro [facility] Adult Medicine UNK - Ambulatory Encounter Ramiro Friend'Isidro Hare O'Isidro Sharma Eilene [facility] Adult Medicine UNK - Ambulatory Encounter [...] Ambulatory Encounter Ramiro Friend'Isidro Friend'Isidro Sharma Eileen [facility] Adult Medicine UNK - Ambulatory Encounter Ramiro Friend'Isidro Hare O'Isidro [facility] Adult Medicine UNK - Ambulatory Encounter Ramiro Friend'Isidro Hare O'Isidro [facility] Adult [facility] Diabetes mellitus, type IIErectile dysfunctionHyperlipidemiaHelicobacter pylori gastrointestinal tract infectionVitamin D deficiency - Ambulatory Encounter Ramiro Rizzo [facility] [place] [facility] UNK - Ambulatory Encounter Yuri Reed [place] [facility] UNK - Ambulatory Encounter Yuri Reed [place] [facility] UNK - Ambulatory Encounter Ramiro Rizzo [place] [facility] UNK - Ambulatory Encounter Ramiro Rizzo Zachary Arellano [place] [facility] OverweightHypertensionDiabetes mellitus, type IIAbdominal pain, left upper quadrantHx of syncopeErectile dysfunctionDiabetic peripheral neuropathy - Ambulatory Encounter Ramiro Rizzo [facility] UNK - Ambulatory Encounter Av Tinajero [place] [facility] UNK - Ambulatory Encounter Av Tinajero [place] [facility] UNK VITAL SIGNS No Information [...] 1.005-1.030 blood glucose, random 144 mg/dL Co [facility] blood glucose, random 198 mg/dL [facility] hemoglobin A1C, blood, as % of total [...] 4.8-5.6 High blood glucose, fasting 138 mg/dL [facility]/total urine volume 2318.5 mg/L LinkLogic Not [...] LinkLogic 3.4-10.8 blood glucose, random 120 mg/dL Zachary [facility] blood glucose, random 200 mg/[facility] Quantifer[facility] Gold TB blood test for [...] TABLET 1 by mouth every day Jennifer Mailn CHLORTHALIDONE 25 MG ORAL TABLET 1 tab [...] literacy ([employer] 2014 Standards, 3C10) Adequate Co Юлия [...] literacy ([employer] 2014 Standards, 3C10) Adequate Co Юлия [...] Never Abbely Geremias " alcohol use Never Nalexjely Geremias " social history reviewed E&M reviewed today Steve Archuleta " is there any chance that you could be ? No Steve Archuleta " assessment of health literacy ([employer] 2014 Standards, 3C10) Adequate Steve Archuleta " passive cigarette smoke exposure No Steve Archuleta " smoking status current every day smoker Steve Archuleta smoking, advice to quit Yes Paula Canalesd " cigarettes, number smoked per day 5-6 Paula Norman " drug use, illicit Never John Mejia " alcohol use Never John Mejia " smoking status current every day smoker John Mejia " social history reviewed E&M reviewed today John Mejia " assessment of health literacy ([employer] 2014 Standards, 3C10) Adequate Hermelindanayelysujata Roberto " passive cigarette smoke exposure No Mamtaa Roberto " Exercise Program Referral T John Mejia " Weight Management Counseling Provided T John Mejia " Nutrition intervention T John Mejia time of call 01/09/2019 9:58 AM Meghan Contreras smoking, advice to quit Yes Paula Canalesd " Exercise Program Referral T Paula Castropard [...] Never 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 Manning " 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.] Ramiro Rizzo " Nutrition intervention T Ramiro Payam O'Isidro " smoking status current every day smoker Zachary Eileen " passive cigarette smoke exposure No Zachary Eileen " is there any chance that you could be ? No Zachary Eileen " alcohol use Never Zachary Eileen " drug use, illicit Never Zachary Eileen " social history reviewed E&M reviewed today Zachary Eileen smoking, advice to quit Yes Ramiro Rizzo " Exercise Program Referral Chlesey Rizzo " Weight Management Counseling Provided Chelsey Rizzo " Nutrition intervention Chelsey Rizzo " alcohol use Never Nazjely Geremias " drug use, illicit Never Nazjely Geremias " social history reviewed E&M reviewed today Nazjemagda Archuleta " cigarettes, number smoked per day [...] intact for recent and remote events Paula Castropard " mental status examination: orientation E&M oriented to time, place, and person Paula Castropard " assessment of judgment and insight E&M intact Paula Castropard " assessment of mood and [...] E&M no depression, anxiety, or agitation Paula Canalesd " Generalized Anxiety Disorder Questionnaire - Question [...] insight E&M intact Ramiro Payam Friend'Isidro " mental status examination: orientation E&M [...] of judgment and insight E&M intact Ramiro Friend'Isidro " assessment of mood and affect E&M Appropriate affect without agitation Ramiro Rizzo " Generalized Anxiety Disorder Questionnaire - Question 2 0 Mag Son " Generalized Anxiety Disorder Questionnaire - Question 1 0 Mag Son assessment of judgment and insight E&M intact Ramiro Friend'Isidro " assessment of mood and [...] Disorder Questionnaire - Question 2 0 Zachary Elieen " Generalized Anxiety Disorder Questionnaire - Question [...] 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 [id number] [facility] 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 [id number] Sliding 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 [id number] Sliding 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 [employer] Other FAMILY PLANNING*TITLE V Medicaid [facility] [id number] Sliding Fee Scale 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 [id number] Family Planning/FPT Medicaid [id number] [employer] Other [id number] ADVANCE DIRECTIVES Name Date DISCUSSED - NO [...] Vision Dental - Internal Nephrology - Adult [facility] INFLUENZA VACCINE QUADRIVALENT 3 YRS PLUS IM Admin of Vaccine - Injection - 1 Est Patient Detailed - 69369 Nephrology - Adult - [place] Est Patient Detailed - 96356 Ofc Vst, Est Level IV Glucose Stick Prescription Assistance (Non-HIV) Ofc Vst, Est Level IV Vision Diabetes Education Endocrinology - Adult - [place] Est Patient Detailed - 28701 Est Patient Well Exam (40 - 64 Yrs) - 26795 Pneumovax Vaccine PPSV23 Admin of Vaccine - Injection - 1 Est Patient Detailed - 03154 Prevnar (PCV13) IM TDAP Admin of Vaccine - Injection - Each Add'l Admin of Vaccine - Injection - 1 Est Patient Detailed - 12710 Est Patient Exp Problem - 92102 Est Patient Exp Problem - 25809 Est Patient Exp Problem - 42038 Est Patient Problem Focus - 54376 Glucose Stick Est Patient Exp Problem - 31284 Glucose Stick Venipuncture Handling of specimen for transfer New Patient Comprehensive - 44882 HISTORY OF PROCEDURES Procedure Date Procedure Name Provider Procedure Notes Status Glucose Stick Jessica Herbert completed Glucose Stick Ramiro Rizzo completed Glucose Stick Ramiro Rizzo completed Venipuncture Ramiro Rizzo completed GOALS No Information Available HEALTH CONCERNS No Information Available
--- OUTSIDE RECORDS SUMMARY | 2019-10-07 23:00 | XMS REPORT ---
Author Author Admin, [place] Organization Unknown Address Unknown Phone Unavailable PROBLEMS Condition Status Date Provider Notes Osteomyelitis, acute, L great toe active Paula Castropard r/o dry gangrene CKD stage 4 (gfr 15-29) active Paula Norman Asymptomatic microscopic hematuria active Paula Castropard Burn, 10-19% BSA, L great toe active Paula Castropard Rash and other nonspecific skin eruption completed [...] Helicobacter pylori gastrointestinal tract infection completed - Ramior Rizzo Hyperlipidemia active Ramiro Rizzo Diabetic peripheral neuropathy active Ramiro Rizzo Erectile dysfunction active Ramiro Rizzo T level appropriate Hx of syncope active Ramiro Rizzo Abdominal pain, left upper quadrant completed - Ramiro Rizzo Diabetes mellitus, type II active Paula Castropard Hypertension active Ramiro Rizzo Overweight completed - Jennifer Malin ENCOUNTERS Date Type Provider Location Encounter Diagnosis - Ambulatory Encounter Paula Norman [facility] [place] UN[place] - Ambulatory Encounter Paula Norman [facility] [place] UNK - Ambulatory Encounter Paula Norman Co Юлия Bennett [facility] [place] Osteomyelitis, acute, L great toe - Ambulatory Encounter Paula Norman Kaylie Aceveod MedAdherence, [facility] [place] UNK - Ambulatory Encounter Rachana Minor [facility] [place] CORRESPONDENCE REPRESENTATIVE UNK - Ambulatory Encounter Paula Norman [facility] [place] UNK - Ambulatory Encounter Paula Norman [facility] [place] UNK - Ambulatory Encounter Paula Castropard [facility] [place] UNK - Ambulatory Encounter Paula Norman [facility] [place] Medicine UNK - Ambulatory Encounter Co Юлия Bennett [facility] [place] Medicine UNK - Ambulatory Encounter Co Юлия Bennett [facility] [place] Medicine UNK - Ambulatory Encounter Paula Norman LinkLogic [facility] [place] UNK - Ambulatory Encounter Paula Norman [facility] [place] CKD stage 4 (gfr 15-29) - Ambulatory Encounter Paula Norman LinkLog[facility] [place] UNK - Ambulatory Encounter Paula Norman [facility] [place] Medicine Asymptomatic microscopic hematuria - Ambulatory Encounter Paula Norman LinkLogic [facility] [place] Medicine UNK - Ambulatory Encounter Paula Norman LinkLogic [facility] [place] Medicine UNK - Ambulatory Encounter Paula Norman [facility] [place] Medicine UNK - Ambulatory Encounter Paula Norman Jessica Herbert Co Юлия Bennett [facility] [place] Medicine UNK - Ambulatory Encounter Paula Norman Co Юлия Bennett [facility] [place] Medicine UNK - Ambulatory Encounter Paula Norman [facility] [place] Adult Medicine UNK - Ambulatory Encounter Paula Norman [facility] [place] Medicine UNK - Ambulatory Encounter Paula Norman Radha Living[place] Co Юлия Steinbergxjone [facility] [place] Diabetes mellitus, type IIMedication, long-term useAllergic rhinitis, seasonalRash and other nonspecific skin eruptionBurn, 10-19% BSA, L great toe - Ambulatory Encounter Co Юлия Bennett [facility] [place] UNK - Ambulatory Encounter Paula Norman Peyton Orr [facility]herence, Rebecca Burkett UNK - Ambulatory Encounter Jessica Herbert [facility] [place] Medicine UNK - Ambulatory Encounter Paula Norman [facility] Adult Medicine UNK - Ambulatory Encounter Beth Greene [facility] [place] Adult Medicine UNK - Ambulatory Encounter Beth Norman [facility] Adult Medicine UNK - Ambulatory Encounter Paula Norman [facility] Adult Medicine UNK - Ambulatory Encounter Paula Castropard [facility] Adult Medicine UNK - Ambulatory Encounter Ellajay Herbert [facility] [place] Medicine UNK - Ambulatory Encounter Jessica Archuleta [facility] [place] Adult Medicine UNK - Ambulatory Encounter Paula Norman [facility] Adult Medicine UNK - Ambulatory Encounter Paula Norman [facility] Adult Medicine UNK - Ambulatory Encounter Paula Norman John Mejia [facility] [place] Allergic rhinitis, seasonalRash and other nonspecific skin eruption - Ambulatory Encounter Paula Norman Steve Espinosa [facility] [place] Medicine UNK - Ambulatory Encounter Paula Norman [facility] Adult Medicine UNK - Ambulatory Encounter Paula Norman [facility]Log[facility] [place] Adult Medicine UNK - Ambulatory Encounter Jessica Herbert LinkLogic [facility] [place] Adult Medicine UNK - Ambulatory Encounter Anh Samayoa [facility] [place] Adult Medicine UNK - Ambulatory Encounter Linda Contreras [facility] UNK - Ambulatory Encounter Steve Archuleta [facility] [place] Medicine UNK - Ambulatory Encounter Ramiro Villafuertes MedAdherence [facility] [place] Adult Medicine UNK - Ambulatory Encounter Paula Norman [facility] [place] Adult Medicine UNK - Ambulatory Encounter Paula Norman Cathy Archuleta [facility] [place] Adult Medicine UNK - Ambulatory Encounter Jessica Herbert [facility] [place] Adult Medicine UNK - Ambulatory Encounter Angle Avila [facility] Public Health Services UNK - Ambulatory Encounter New Kamara Yao [facility] [place] Adult Medicine UNK - Ambulatory Encounter Anh Yao [facility] [place] Adult Medicine UNK - Ambulatory Encounter Ramiro Hare O'Isidro Ramiro Hare O'Isidro LinkLogic [facility] [place] Adult Medicine UNK - Ambulatory Encounter Jose Armando Gonzalez [facility] [place] Adult Medicine UNK - Ambulatory Encounter Jennifer Malin [facility]Log[facility] [place] Adult Medicine UNK - Ambulatory Encounter Aamir Manning [facility] [place] Adult Medicine UNK - Ambulatory Encounter Fax Status [facility] UNK - Ambulatory Encounter Fax Status [facility] UNK - Ambulatory Encounter Jennifer Manning [facility] [place] Medicine UNK - Ambulatory Encounter [facility] - Ambulatory Encounter Fax Status [facility] UNK - Ambulatory Encounter [facility] UN[facility] - Ambulatory Encounter Jennifer Manning [facility] [place] Adult Medicine UNK - Ambulatory Encounter Jennifer Malin [facility] [place] Adult Medicine UNK - Ambulatory Encounter Jennifer Malin [facility] [place] Medicine UNK - Ambulatory Encounter Jennifer Manning [facility] [place] Medicine OverweightBMI 31.0-31.9Tobacco useObesityMedication, long-term useLiver function abnormality - Ambulatory Encounter Lilo Amaro [facility] [place] Medicine UNK - Ambulatory Encounter Steve Archuleta [facility] [place] Adult Medicine UNK - Ambulatory Encounter Ramiro Friend'Isidro Samayoa [facility] [place] Adult Medicine Microalbuminuria - Ambulatory Encounter Ramiro Friend'Isidro [facility] Adult Medicine UNK - Ambulatory Encounter Ramiro Hare O'Isidro Friend'Isidro [facility] Adult Medicine UNK - Ambulatory Encounter Ramiro Friend'Isidro Hare O'Isidro Sharma Eileen [facility] Adult Medicine HyperlipidemiaBMI 29.0- 29.9BMI 31.0-31.9 - Ambulatory Encounter Rinjay Herbert [facility] [place] [place] Medicine UNK - Ambulatory Encounter Ana Laura Escobedo [facility] [place] Vision UNK - Ambulatory Encounter Alice Malagon [facility] UNK - Ambulatory Encounter Janice Villalpando [facility] [place] Balloon Tester UNK - Ambulatory Encounter Rinal Herbertlucinda aLnge [facility] [place] Adult Medicine UNK - Ambulatory Encounter Rinjay Herbert [facility] Adult Medicine UNK - Ambulatory Encounter Rinal Keon Mckeon [facility] [place] Adult Medicine UNK - Ambulatory Encounter Rinjay Herbert [facility] Adult Medicine UNK - Ambulatory Encounter Jessica Herbert [facility] Adult Medicine UNK - Ambulatory Encounter Rinjay Herbert [facility] Adult Medicine UNK - Ambulatory Encounter Jessica Herbert [facility] Adult Medicine UNK - Ambulatory Encounter Jessica Herbert [facility] Adult Medicine UNK - Ambulatory Encounter Steve Archuleta [facility] Adult Medicine UNK - Ambulatory Encounter Jessica Herbert [facility] Adult Medicine UNK - Ambulatory Encounter Jessica Herbert Aydee Escobedo [facility] [place] Adult Medicine UNK - Ambulatory Encounter Bethene Greene [facility] [place] Adult Medicine UNK - Ambulatory Encounter Ramiro Wongi Jc [facility] [place] Adult Medicine UNK - Ambulatory Encounter Ramiro Rizzo [facility] Adult Medicine UNK - Ambulatory Encounter Ramiro Rizzo [facility]Log[facility] [place] [place] Adult Medicine UNK - Ambulatory Encounter Ramiro Rizzo [facility] Adult Medicine UNK - Ambulatory Encounter Ramiro Rizzo [facility] Adult Medicine UNK - Ambulatory Encounter Ramiro Rizzo [facility] Adult Medicine UNK - Ambulatory Encounter [facility]ro [facility] Immunization updatePreventive health careColorectal screeningProstate Cancer, Screening - Ambulatory Encounter Ramiro Hare O'Isidro Peyton Guerra [facility] [place] [place] Medicine UNK - Ambulatory Encounter Ramiro Hare O'Isidro Hare O'Isidro [facility] UNK - Ambulatory Encounter Ramiro Hare O'Isidrojay Hare O'Isidro [facility] Adult Medicine UNK - Ambulatory Encounter Ramiro Hare O'Isidrojay Hare O'Isidro [facility] Adult Medicine UNK - Ambulatory Encounter Ramiro Hare O'Isidro Hare O'Isidro [employer] Adult Medicine UNK - Ambulatory Encounter F[facility] UN[facility] - [facility]ulatory [facility]counter [facility] - [facility]ulatory Encounter Fax [facility] UNK - Ambulatory Encounter Ramiro Hare O'Isidro Hare O'Isidro [facility] Adult Medicine UNK - Ambulatory Encounter Ramiro Hare O'Isidro Hare O'Isidro Andria Livingston [facility] Adult Medicine BMI 32.0-32.9Candidal balanitisBMI 29.0-29.9Preventive health carePeripheral vascular insufficiencyColorectal screeningProstate Cancer, Screening - Ambulatory Encounter Ramiro Hare O'Isidro Hare O'Isidro [employer] Adult Medicine UNK - Ambulatory Encounter Ramiro Hare O'Isidro Hare O'Isidro [employer] [place] [place] Adult Medicine UNK - Ambulatory Encounter Lacey Hall [facility] [place] Dental UNK - Ambulatory Encounter Ramiro Hare O'Isidro Hare O'Isidro Dunia Acuña [facility] UNK - Ambulatory Encounter Ramiro Rizzo [facility] Adult Medicine UNK - Ambulatory Encounter Ramiro Loveon Eileen [facility] [place] [place] Adult Medicine BronchitisCandidal balanitisImmunization update - Ambulatory Encounter Mag Son [facility] [place] Adult Medicine UNK - Ambulatory Encounter Ramiro Guerra [facility] [place] Adult Medicine UNK - Ambulatory Encounter Ramiro Rizzo [facility] [place] Adult Medicine UNK - Ambulatory En[facility] - Ambulatory Encounter Ramiro Rizzo [facility] [place] [place] Medicine UNK - Ambulatory Encounter Ramiro Finchlucian Geremias [facility] [place] BMI 32.0-32.9Bronchitis - Ambulatory Encounter Ramiro Rizzo [facility] [place] Medicine UNK - Ambulatory Encounter Ramiro Rizzo [facility] [place] Adult Medicine UNK - Ambulatory Encounter Ramiro Son [facility] [place] Medicine Helicobacter pylori gastrointestinal tract infectionVaccination Against Influenza - Ambulatory Encounter Florencio Givens [facility] [place] Adult Medicine UNK - Ambulatory Encounter Anna Connell [facility] [place] Adult Medicine UNK - Ambulatory Encounter Anna [facility]nell [facility] UNK - [facility] - Ambulatory Encounter [...] Medicine UNK - Ambulatory Encounter Ramiro Rizzo [facility] [place] Adult Medicine UNK - Ambulatory Encounter Ramiro Arellano [facility] [place] Adult Medicine UNK - Ambulatory Encounter Ramiro iRzzo [facility] Adult Medicine UNK - Ambulatory Encounter Ramiro Rizzo [facility] [place] Diabetes mellitus, type IIErectile dysfunctionHyperlipidemiaHelicobacter pylori gastrointestinal tract infectionVitamin D deficiency - Ambulatory Encounter Ramiro Rizzo [facility] Adult Medicine UNK - [facility] - [facility] - Ambulatory Encounter Ramiro Rizzo [facility] [place] Medicine UNK - Ambulatory Encounter Ramiro Sharma [facility] Adult Medicine OverweightHypertensionDiabetes mellitus, type IIAbdominal pain, left upper quadrantHx of syncopeErectile dysfunctionDiabetic peripheral neuropathy - Ambulatory Encounter Ramiro Rizzo [facility] UNK - Ambulatory Encounter Av Tinajero [facility] [place] Adult Medicine UNK - Ambulatory Encounter Av Tinajero [facility] [place] Adult Medicine UNK VITAL SIGNS No Information Available ALLERGIES Allergy Name Onset Date Reaction Criticality Status NIFEDIPINE Facial swelling High Criticality active CHLORTHALIDONE Facial swelling High Criticality active REASON FOR REFERRAL Start Date - End Date Service - Endocrinology - Adult - CT Scan RESULTS Date Observation Value Provider Reference Range Interpretation Location hemoglobin A1C, blood, as % of total hemoglobin 162 % Juan Luis Bennett vitamin D 25-hydroxy, serum 10.3 ng/mL LinkLogic [...] 1.005-1.030 blood glucose, random 144 mg/dL Co [facility] blood glucose, random 198 mg/dL [facility] hemoglobin A1C, blood, as % of [...] LinkLogic 3.4-10.8 blood glucose, random 120 mg/dL [facility] blood glucose, random 200 mg/dL [facility] Quantiferon Gold TB blood test for [...] ORAL TABLET 1 by mouth every day - Paula Norman CHLORTHALIDONE 25 MG ORAL TABLET 1 tab [...] Rizzo SOCIAL HISTORY Date Observation Value Provider drug use, illicit Never Co Юлия Moxey " alcohol use Never Co Юлия Moxey " social history reviewed E&M reviewed today Co Юлия Bennett " sexual orientation Heterosexual Co Юлия Moxey " assessment of health literacy ([facility] 2014 Standards, 3C10) Adequate Co Юлия Moxey " Exercise Program Referral T Co Юлия Moxey " Weight Management Counseling Provided T Co Юлия Moxey " Nutrition intervention T Co Юлия Moxey " passive cigarette smoke [...] of health literacy ([facility] 2014 Standards, 3C10) Adequate Co [...] of health literacy ([facility] 2014 Standards, 3C10) Adequate Co [...] of health literacy ([facility] 2014 Standards, 3C10) Adequate Sagrariodaniela Geremias " passive cigarette smoke exposure No Sagrariomiraly Geremias " smoking status current every day [...] of health literacy ([facility] 2014 Standards, 3C10) Adequate John Mejia " passive cigarette smoke exposure No John Mejia " Exercise Program Referral T John Mejia " Weight Management Counseling Provided T John Mejia " Nutrition intervention Chelsey Mejia time of call 01/09/2019 9:58 AM [...] Cathy Dwight " assessment of health literacy ([facility] 2014 Standards, 3C10) Adequate Cathy Quintanilla " passive cigarette smoke exposure No Cathytalya Quintanilla " smoking status current every day smoker Cathy Quintanilla time of call 10/25/2018 9:14 AM Angle Avila social history reviewed E&M reviewed today Jennifer Malin " drug use, illicit Never Aamir Manning " alcohol use Never Aamir Manning " Occupation #[employer] Aamir Manning " sexual orientation Heterosexual Aamir Manning " assessment of health literacy ([facility] 2014 Standards, 3C10) Adequate Aamir [...] today Zachary Eileen drug use, illicit Never Wolcott Anisa " alcohol use Never Wolcott Anisa " social history reviewed E&M reviewed [...] " smoking status current every day smoker Nazjemagda Archuleta " passive cigarette smoke exposure No [...] " social history reviewed E&M reviewed today Zacharyamanda Arellano " passive cigarette smoke exposure No [...] " assessment of mood and affect E&M depressed Paula Norman " Generalized Anxiety Disorder Questionnaire - Question 2 0 Co Юлия Bennett " Generalized Anxiety Disorder Questionnaire - Question 1 0 Co Юлия Bennett mental status examination: recall E&M intact for recent and remote events Paula Norman " mental status examination: orientation E&M oriented to time, place, and person Puala Norman " assessment of judgment and insight [...] Disorder Questionnaire - Question 2 0 Cathy Quintainlla " Generalized Anxiety Disorder Questionnaire - Question [...] judgment and insight E&M intact Ramiro Payam Friend'Iisdro " mental status examination: orientation E&M oriented [...] Appropriate affect without agitation Ramiro Friend'Isidro " Generalized Anxiety Disorder Questionnaire - [...] Appropriate affect without agitation Ramiro Friend'Isidro " Generalized Anxiety Disorder Questionnaire - Question 2 0 Mag Son " Generalized Anxiety Disorder Questionnaire - Question 1 0 Mag Son assessment of judgment and insight E&M intact Ramiro Hare O'Isidro " assessment of mood and affect E&M Appropriate affect without agitation Ramiro Friend'Isidro " Generalized Anxiety Disorder Questionnaire - Question 2 0 Zachary Arellano " Generalized Anxiety Disorder Questionnaire - Question 1 0 Zachary Arellano assessment of mood and affect E&M Appropriate affect without agitation Ramiro Hare O'Isidro " assessment of judgment [...] Disorder Questionnaire - Question 2 0 Zacharyamanda Garzais " Generalized Anxiety Disorder Questionnaire - Question 1 0 Zachary Eileen MEDICAL EQUIPMENT No Information Available FAMILY HISTORY No Information Available INSURANCE PROVIDERS Payer name Policy type / Coverage type Covered green party ID Sliding 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 [id number] [facility] [id number] [facility] 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 Wave Accounting [id number] Sliding 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 [id number] Sliding 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 [facility] [employer] Other FAMILY PLANNING*TITLE V Medicaid [facility] [id number] Sliding Fee Scale 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 [id number] Family Planning/WHFPT Medicaid [id number] [employer] Other [id number] ADVANCE DIRECTIVES Name Date DISCUSSED - NO [...] to Free T4 Hemoglobin A1c Microalb/Creat Ratio, Rand Ur Lipid Panel Comp. Metabolic Panel (14) CBC With Differential/Platelet Hemoglobin A1c Microalb/Creat Ratio, Rand Ur Hemoglobin A1c Hemoglobin A1c Lipid Panel Comp. Metabolic Panel (14) PSA, Serum (Serial Monitor) Microalb/Creat Ratio, Rand Ur Vitamin D, 25-Hydroxy TSH Hemoglobin A1c [...] - - Ofc Vst, Est Level IV Nephrology - Adult - [facility] Ofc Vst, Est Level IV Ofc Vst, Est Level IV Ofc Vst, Est Level IV Ofc Vst, Est Level IV Ofc Vst, Est Level IV Vision Dental - Internal Nephrology - Adult - [facility] INFLUENZA VACCINE QUADRIVALENT 3 YRS PLUS IM Admin of Vaccine - Injection - 1 Est Patient Detailed - 15415 Nephrology - Adult - [facility] Est Patient Detailed - 00918 Ofc Vst, Est Level IV Glucose Stick Prescription Assistance (Non-HIV) Ofc Vst, Est Level IV Vision Diabetes Education Endocrinology - Adult - [facility] Est Patient Detailed - 07110 Est Patient Well Exam (40 - 64 Yrs) - 81855 Pneumovax Vaccine [id number] Admin of Vaccine - Injection - 1 Est Patient Detailed - 50355 Prevnar (PCV13) IM TDAP Admin of Vaccine - Injection - Each Add'l Admin of Vaccine - Injection - 1 Est Patient Detailed - 41867 Est Patient Exp Problem - 38619 Est Patient Exp Problem - 41892 Est Patient Exp Problem - 61091 Est Patient Problem Focus - 75853 Glucose Stick Est Patient Exp Problem - 56539 Glucose Stick Venipuncture Handling of specimen for transfer New Patient Comprehensive - 18959 HISTORY OF PROCEDURES Procedure Date Procedure Name Provider Procedure Notes Status Glucose Stick Jessica Herbert completed Glucose Stick Ramiro Rizzo completed Glucose Stick Ramiro Rizzo completed Venipuncture Ramiro Rizzo completed GOALS No Information Available HEALTH CONCERNS No Information Available
--- OUTSIDE RECORDS SUMMARY | 2019-10-07 23:02 | XMS REPORT ---
Author Author Admin, [place] Organization Unknown Address Unknown Phone Unavailable PROBLEMS [...] - Ramiro Rizzo BMI 32.0-32.9 completed - Rmairo Rizzo Vaccination Against Influenza completed - Ramiro [...] Provider Location Encounter Diagnosis - Ambulatory Encounter Steve Archuleta [facility] Adult Medicine UNK - Ambulatory Encounter Paula Norman [facility] Adult Medicine UNK - Ambulatory Encounter Paula Norman [facility] Adult Medicine UNK - Ambulatory Encounter Paula Norman Juan Luis Bennett [facility] Adult Medicine Osteomyelitis, acute, L great toe - Ambulatory Encounter Paula Norman Kaylie Acevedo [employer], [facility] Adult Medicine UNK - Ambulatory Encounter Rachana Minor [facility] 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 - Ambulatory Encounter Paula Norman [facility] Adult Medicine UNK - Ambulatory Encounter Paula Norman [facility] Adult Medicine UNK - Ambulatory Encounter Paula Norman [facility] Adult Medicine UNK - Ambulatory Encounter Paula Norman [facility] Adult Medicine UNK - Ambulatory Encounter Juan Luis Bennett [facility] Adult Medicine UNK - Ambulatory Encounter Co Юлия Bennett [facility] Adult Medicine UNK - Ambulatory Encounter Paula Norman LinkLogic [facility] Adult Medicine UNK - Ambulatory Encounter Paula Norman [facility] Adult Medicine CKD stage 4 (gfr 15-29) - Ambulatory Encounter [facility] - Ambulatory Encounter Paula Norman [facility] Adult Medicine Asymptomatic microscopic hematuria - Ambulatory Encounter [facility] UNK - Ambulatory Encounter [facility] Adult Medicine UNK - Ambulatory Encounter Paula Norman [facility] Adult Medicine UNK - Ambulatory Encounter Paula Norman Jessica Herbert Co Юлия Steinbergjone [facility] Adult Medicine UNK - Ambulatory Encounter Paula Norman Co Юлия Steinbergjone [facility] Adult Medicine UNK - Ambulatory Encounter Paula Norman [facility] Adult Medicine UNK - Ambulatory Encounter Paula Norman [facility] Adult Medicine UNK - Ambulatory Encounter Paula Norman Radha [place] Юлия Steinbergjone [facility] Adult Medicine Diabetes mellitus, type IIMedication, long-term useAllergic rhinitis, seasonalRash and other nonspecific skin eruptionBurn, 10-19% BSA, L great toe - Ambulatory Encounter Co Юлия Bennett [facility] Adult Medicine UNK - Ambulatory Encounter Paula Norman [facility] - Ambulatory Encounter [facility] Adult Medicine UNK - Ambulatory Encounter [facility] Norman [facility] Adult Medicine UNK - Ambulatory Encounter Beth Greene [facility] Adult Medicine UNK - Ambulatory Encounter Beth Norman [facility] Adult Medicine UNK - Ambulatory Encounter Paula Norman [facility]Log[facility] Adult Medicine UNK - Ambulatory Encounter Paula Castropard LinkLogic [facility] Adult Medicine UNK - Ambulatory Encounter Jessica Nortonel [facility] Adult Medicine UNK - Ambulatory Encounter Ellajay Archuleta [facility] Adult Medicine UNK - Ambulatory Encounter Paula Norman [facility] Adult Medicine UNK - Ambulatory Encounter Paula Norman C Adult Medicine UNK - Ambulatory Encounter Paula Norman John Mejia [facility] Adult Medicine Allergic rhinitis, seasonalRash and other nonspecific skin eruption - Ambulatory Encounter Paula Norman Steve Espinosa [facility] Adult Medicine UNK - Ambulatory Encounter Paula Castropard [facility] Adult Medicine UNK - Ambulatory Encounter Paula Castropard [facility] Adult Medicine UNK - Ambulatory Encounter Jessica Herebrt LinkLogic [facility] Adult Medicine UNK - Ambulatory Encounter Anh Samayoa [facility] Adult Medicine UNK - Ambulatory Encounter Linda Contreras [facility] UNK - Ambulatory Encounter Steve Archuleta [facility] Adult Medicine UNK - Ambulatory Encounter Ramiro JimenezAdhermichael [facility] Adult Medicine UNK - Ambulatory Encounter Paula Norman [facility] Adult Medicine UNK - Ambulatory Encounter Paula Norman Cathy Archuleta [facility] Adult Medicine UNK - Ambulatory Encounter Jessica Herbert [facility] Adult Medicine UNK - Ambulatory Encounter Angle Avila [facility] Public [facility] Services UNK - Ambulatory Encounter [place] [facility] Adult Medicine UNK - Ambulatory Encounter [place] SrivastavaYao [facility] Adult Medicine UNK - Ambulatory Encounter Ramiro Rizzo [employer]Logic [facility] Adult Medicine UNK - Ambulatory Encounter Jose Armando Gonzalez [facility] Adult Medicine UNK - Ambulatory Encounter Jennifer Malin [employer]Logic [facility] Adult Medicine UNK - Ambulatory Encounter Aamir Manning [facility] Adult Medicine UNK - Ambulatory Encounter [facility] - Ambulatory Encounter Fax Status LinkLogic [facility] UNK - Ambulatory Encounter Jennifer Tejedao [facility] Adult Medicine UNK - Ambulatory Encounter Fax Status [facility]ic [facility] UNK - Ambulatory Encounter Fax Status [facility] UNK - Ambulatory Encounter Fax Status [facility] UNK - Ambulatory Encounter eJnnifer Tejedao [facility] Adult Medicine UNK - Ambulatory Encounter Jennifer Malin [facility] Adult Medicine UNK - Ambulatory Encounter Jennifer Malin [facility] Adult Medicine UNK - Ambulatory Encounter Jennifer Manning [facility] Adult Medicine OverweightBMI 31.0-31.9Tobacco useObesityMedication, long-term useLiver function abnormality - Ambulatory Encounter Lilo Amaro [facility] Adult Medicine UNK - Ambulatory Encounter Steve Archuleta [facility] Adult Medicine UNK - Ambulatory Encounter Ramiro Samayoa [facility] Adult Medicine Microalbuminuria - Ambulatory Encounter Ramiro Rizzo [facility] Adult Medicine UNK - Ambulatory Encounter Ramiro Rizzo [facility] Adult Medicine UNK - Ambulatory Encounter Ramiro Sharma [facility] Adult Medicine HyperlipidemiaBMI 29.0- 29.9BMI 31.0-31.9 - Ambulatory Encounter Jessica Herbert LinkLogduy [facility] Adult Medicine UNK - Ambulatory Encounter Ana Laura Escobedo [facility] Vision UNK - Ambulatory Encounter Alice Malagon [facility] UNK - Ambulatory Encounter Janice Villalpando [facility] 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 - Ambulatory Encounter Rinal Keon Lange [facility] Adult Medicine UNK - Ambulatory Encounter Jessica Herbert [facility] Adult Medicine UNK - Ambulatory Encounter Rinal Herbert Aleja Geremias Gomez Anisa [facility] Adult Medicine UNK - Ambulatory Encounter Rinal Herbert [facility] Adult Medicine UNK - Ambulatory Encounter Rinal Herbert [facility] Adult Medicine UNK - Ambulatory Encounter Rinal Herbert [facility] Adult Medicine UNK - Ambulatory Encounter Rinal Herbert [facility] Adult Medicine UNK - Ambulatory Encounter Rinal Herbert [facility] Adult Medicine UNK - Ambulatory Encounter Sagrariodaniela Geremias [facility] Adult Medicine UNK - Ambulatory Encounter Rinal Herbert [facility] Adult Medicine UNK - Ambulatory Encounter Rinal Herbert Aydee Escobedo [facility] Adult Medicine UNK - Ambulatory Encounter Beth Jc [facility] Adult Medicine UNK - Ambulatory [facility] - Ambulatory Encounter Ramiro Rizzo [facility] Adult Medicine UNK - Ambulatory Encounter Ramiro Rizzo [facility] Adult Medicine UNK - Ambulatory Encounter Ramiro Rizzo [facility] Adult Medicine UNK - Ambulatory Encounter Ramiro Rizzo [facility] Adult Medicine UNK - Ambulatory Encounter Ramiro Rizzo [facility] Adult Medicine UNK - Ambulatory Encounter Ramiro Sharma [facility] Adult Medicine Immunization updatePreventive health careColorectal screeningProstate Cancer, Screening - Ambulatory Encounter Ramiro Hare O'Isidro Hare O'Isidrojay Guerra [facility] Adult Medicine UNK - Ambulatory Encounter Ramiro Hare O'Isidro [facility] - Ambulatory Encounter Ramiro Hare O'Isidro [facility] UNK - Ambulatory Encounter Ramiro Hare O'Isidro Hare O'Isidro [facility] Adult Medicine UNK - Ambulatory Encounter Ramiro Hare O'Isidro [facility] UNK - Ambulatory Encounter [facility]ax [facility] UNK - Ambulatory Encounter [facility]ax [facility] - Ambulatory Encounter Fax [facility] UNK - Ambulatory Encounter Ramiro Friend'Isidro Hare O'Isidro [facility] Adult Medicine UNK - Ambulatory Encounter Ramiro Hare O'Isidro Hare O'Isidrojay [place] [facility] Adult Medicine BMI 32.0-32.9Candidal balanitisBMI 29.0-29.9Preventive health carePeripheral vascular insufficiencyColorectal screeningProstate Cancer, Screening - Ambulatory Encounter Ramiro Hare O'Isidro Hare O'Isidro LinkLogic [facility] Adult Medicine UNK - Ambulatory Encounter Ramiro Hare O'Isidro Hare O'Isidro LinkLogic [facility] Adult Medicine UNK - Ambulatory Encounter Lacey Hall [facility] Dental UNK - Ambulatory Encounter Ramiro Hare O'Isidro Hare O'Isidrojay [place] Karen Acuña [facility] UNK - Ambulatory Encounter Ramiro Friend'Isidro Friend'Isidro [facility] Adult Medicine UNK - Ambulatory Encounter Ramiro Friend'Isidro Friend'Isidro Zachary Eileen [facility] Adult Medicine BronchitisCandidal balanitisImmunization update - Ambulatory Encounter Mag Son [facility] Adult Medicine UNK - Ambulatory Encounter Ramiro Friend'Isidro Friend'Isidro Guerra [facility] Adult Medicine UNK - Ambulatory Encounter Ramiro Friend'Isidro Hare O'Isidro [facility] Adult Medicine UNK - Ambulatory Encounter Ramiro Friend'Isidro Hare O'Isidro LinkLogic [facility] Adult Medicine UNK - Ambulatory Encounter Ramiro Friend'Isidro Hare O'Isidro [facility] Adult Medicine UNK - Ambulatory Encounter Ramiro Friend'Isidro Hare O'Isidro Archuleta [facility] Adult Medicine BMI 32.0-32.9Bronchitis - Ambulatory Encounter Ramiro Friend'Isidro Friend'Isidro [facility] Adult Medicine UNK - Ambulatory Encounter Ramiro Friend'Isidro Friend'Isidro [facility] Adult Medicine UNK - Ambulatory Encounter Ramiro Friend'Isidro Friend'Isidro Son [facility] Adult Medicine Helicobacter pylori gastrointestinal tract infectionVaccination Against Influenza - Ambulatory Encounter Florencio Givens [facility] Adult Medicine UNK - Ambulatory Encounter Anna Connell [facility] Adult Medicine UNK - Ambulatory Encounter Anna JacobsenLogduy [facility] Adult Medicine UNK - Ambulatory Encounter Ramiro Friend'Isidro Ramiro Payam O'Isidro [facility] Adult Medicine UNK - [...] Medicine UNK - Ambulatory Encounter Ramiro Rizzo [facility] Adult Medicine UNK - Ambulatory Encounter Ramiro Rizzo [facility] Adult Medicine UNK - Ambulatory Encounter Ramiro Arellano [facility] Adult Medicine UNK - Ambulatory Encounter Ramiro Rizzo [facility] Adult Medicine UNK - Ambulatory Encounter Ramiro Rizzo [facility] Adult Medicine Diabetes mellitus, type IIErectile dysfunctionHyperlipidemiaHelicobacter pylori gastrointestinal tract infectionVitamin D deficiency - Ambulatory Encounter Ramiro Rizzo [facility] Adult Medicine UNK - [facility] - Ambulatory Encounter Yuri Derek [facility] Adult Medicine UNK - Ambulatory Encounter Ramiro Rizzo [facility] Adult Medicine UNK - Ambulatory Encounter Ramiro Loveon [facility] Adult Medicine OverweightHypertensionDiabetes mellitus, type IIAbdominal pain, left upper quadrantHx of syncopeErectile dysfunctionDiabetic peripheral neuropathy - Ambulatory Encounter Ramiro Rizzo [facility] UNK - Ambulatory Encounter Av Tinajero [facility] Adult Medicine UNK - Ambulatory Encounter Av Tinajero [facility] Adult Medicine UNK VITAL SIGNS [...] 1.005-1.030 blood glucose, random 144 mg/dL Co [facility] blood glucose, random 198 mg/dL [facility] hemoglobin A1C, blood, as % of [...] 12.6-17.7 " erythrocyte (RBC) count 4.36 X10E6/UL LinkLog 4.14-5.80 " leukocyte count, blood 8.2 X10E3/UL LinkLog 3.4-10.8 blood glucose, random 120 mg/dL [facility] blood glucose, random 200 mg/dL [facility] Quantiferon Gold TB blood test [...] Helicobacter pylori antibody, IgG, serum 5.4 U/mL [facility] 0.0-0.8 High " testosterone, serum, free 5.7 [...] Provider drug use, illicit Never Co Юлия Bennett " alcohol use Never Co Юлия Moxjone " social history reviewed E&M reviewed today Co Юлия Bennett " sexual orientation Heterosexual Co Юлия Steinbergxjone " assessment of health literacy ([facility] 2014 Standards, 3C10) Adequate Co Юлия Moxey " Exercise Program Referral T Co Юлия Moxjone " Weight Management Counseling Provided T Co Юлия Moxey " Nutrition intervention T Co Юлия Moxey " passive cigarette smoke exposure Yes Co Юлия Steinbergxjone " smoking status current every day smoker [...] Юлия Moxey " assessment of health literacy ([facility] 2014 Standards, 3C10) Adequate Co [...] Юлия Moxey " assessment of health literacy ([facility] 2014 Standards, 3C10) Adequate Co Юлия Moxey " passive cigarette smoke exposure Yes Co Юлия Moxey " smoking status current every day smoker Co Юлия Moxey time of call 06/27/2019 10:24 AM Rebecca Browning Exercise Program Referral T Rinal Herbert " Weight Management Counseling Provided T Rinal Herbert " Nutrition intervention T Rinal Herbert " drug use, illicit Never Nadaniela Geremias " alcohol use Never Josettelucian Geremias " social history reviewed E&M reviewed today Steve Archuleta " is there any chance that you could be ? No Steve Archuleta " assessment of health literacy ([facility] 2014 Standards, 3C10) Adequate Steve Archuleta " passive cigarette smoke exposure No Steve Archuleta " smoking status current every day smoker Steve Archuleta smoking, advice to quit Yes Paula Norman " cigarettes, number smoked per day 5-6 Paula Norman " drug use, illicit Never Lornayelya Roberto " alcohol use Never Lornayelya Roberto " smoking status current every day smoker Lornayelya Roberto " social history reviewed E&M reviewed today John Mejia " assessment of health literacy ([facility] 2014 Standards, 3C10) Adequate John [...] Cathy Quintanilla " assessment of health literacy ([facility] 2014 Standards, 3C10) Adequate Cathy Quintanilla " passive cigarette smoke exposure No Cathy Dwight " smoking status current every day smoker Cathy Quintanilla time of call 10/25/2018 9:14 AM Angle Avila social history reviewed E&M reviewed today Jennifer Malin " drug use, illicit Never Aamir Manning " alcohol use Never Aamir Manning " 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 Aamir Manning " sexual orientation Heterosexual Aamir Manning " assessment of health literacy ([facility] 2014 Standards, 3C10) Adequate Aamir [...] " social history reviewed E&M reviewed today [place] Anisa " passive cigarette smoke exposure No [place] Anisa " smoking status current every day smoker [place] Anisa " Exercise Program Referral T Savanna [...] cigarettes, number smoked per day 1-4 Sagrariodaniela Archuleta " smoking status current every day [...] Chelsey Rizzo " Nutrition intervention T Ramiro Payam O'Isidro " drug use, illicit Never Zachary Eileen [...] of Daily Living (ADL) Independent Ramiro Hare RonnaTimIsidro MENTAL STATUS Date Observation Value Provider mental [...] oriented to time, place, and person Paula Canalesd " assessment of mood and affect E&M [...] assessment of judgment and insight E&M intact aRmiro Hare Matthias " assessment of mood and [...] 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, [id number] Sliding Fee Scale 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 [id number] Family Planning/WHFPT Medicaid [id number] [employer] Other [id number] ADVANCE DIRECTIVES Name Date DISCUSSED - NO [...] Vision Dental - Internal Nephrology - Adult [facility] INFLUENZA VACCINE QUADRIVALENT 3 YRS PLUS IM Admin of Vaccine - Injection - 1 Est Patient Detailed - 60399 Nephrology - Adult [facility] Est Patient Detailed - 60686 Ofc Vst, Est Level IV Glucose Stick Prescription Assistance (Non-HIV) Ofc Vst, Est Level IV Vision Diabetes Education Endocrinology - Adult [facility] Est Patient Detailed - 17439 Est Patient Well Exam (40 - 64 Yrs) - 36290 Pneumovax Vaccine PPSV23 Admin of Vaccine - Injection - 1 Est Patient Detailed - 13836 Prevnar (PCV13) IM TDAP Admin of Vaccine - Injection - Each Add'l Admin of Vaccine - Injection - 1 Est Patient Detailed - 55167 Est Patient Exp Problem - 28593 Est Patient Exp Problem - 71041 Est Patient Exp Problem - 97696 Est Patient Problem Focus - 22724 Glucose Stick Est Patient Exp Problem - 30572 Glucose Stick Venipuncture Handling of specimen for transfer New Patient Comprehensive - 43401 HISTORY OF PROCEDURES Procedure Date Procedure Name Provider Procedure Notes Status Glucose Stick Jessica Nortonel completed Glucose Stick Ramiro Rizzo completed Glucose Stick Ramiro Rizzo completed Venipuncture Ramiro Rizzo completed GOALS No Information Available HEALTH CONCERNS No Information Available
[2019-10-07] MEDS ORDERED: ACETAMINOPHEN 325 MG TAB ONE (23:03)
--- OUTSIDE RECORDS SUMMARY | 2019-10-07 23:03 | XMS REPORT ---
Author Author Admin, [place] Organization Unknown Address Unknown Phone Unavailable PROBLEMS [...] Jennifer Malin Prostate Cancer, Screening completed - Raimro Rizzo Colorectal screening completed - Ramiro Rizzo [...] Rizzo Diabetes mellitus, type II active Paula Emerson Hypertension active Ramiro Rizzo Overweight completed - Jennifer Malin ENCOUNTERS Date Type Provider Location Encounter Diagnosis - Ambulatory Encounter Paula Castropard Paula Castroelisa Bennett [facility] Adult Medicine UNK - Ambulatory Encounter Jessica Herbert [facility] Adult Medicine UNK - Ambulatory Encounter Jessica Archuleta [facility] Adult Medicine UNK - Ambulatory Encounter Steve rAchuleta [facility] Adult Medicine UNK - Ambulatory Encounter Paula Castroparmalina Castropard [facility] Adult Medicine UNK - Ambulatory Encounter Paula Castropard Paula Castropard [facility] Adult Medicine UNK - Ambulatory Encounter Paula Castroparmalina Castropard Juan Luis Bennett [facility] Adult Medicine Osteomyelitis, acute, L great toe - Ambulatory Encounter Paula Castropard Paula Castroelisa Acevedo MedAdherence, [facility] Adult Medicine UNK - Ambulatory Encounter Rachana Beltre [facility] PESTICIDE USE MEDICAL 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 UNK - Ambulatory Encounter Paula Castropard Paula Emerson [facility] Adult Medicine UNK - Ambulatory Encounter Paula Castroparmalina Castropard [facility] Adult Medicine UNK - Ambulatory Encounter Paula Norman LM Adult Medicine UNK - Ambulatory Encounter Paula Norman LM Adult Medicine UNK - Ambulatory Encounter Co Юлия Bennett [facility] Adult Medicine UNK - Ambulatory Encounter Co Юлия Bennett [facility] Adult Medicine UNK - Ambulatory Encounter Paula Norman LinkLogic [facility] Adult Medicine UNK - Ambulatory Encounter Paula Castropard [facility] Adult Medicine CKD stage 4 (gfr 15-29) - Ambulatory Encounter Paula Norman [employer] [facility] Adult Medicine UNK - Ambulatory Encounter Paula Canalesd Paula Castropard [facility] Adult Medicine Asymptomatic microscopic hematuria - Ambulatory Encounter Paula Norman LinkLog[employer] [facility] Adult Medicine UNK - Ambulatory Encounter Paula Canalesd [employer]Logic [facility] Adult Medicine UNK - Ambulatory Encounter Paula Castropard [facility] Adult Medicine UNK - Ambulatory Encounter Paula Canalesmalina Herbert Co Юлия Steinbergxjone [facility] Adult Medicine UNK - Ambulatory Encounter Paula Canalesd Paula Norman Co Юлия Steinbergxjone [facility] Adult Medicine UNK - Ambulatory Encounter Paula Canalesd Paula Castropard LM Adult Medicine UNK - Ambulatory Encounter Paula Canalesd Paula Castropard LM Adult Medicine UNK - Ambulatory Encounter Paula Canalesd Paula Canalesmalina [place] Co Юлия Steinbergxjone [facility] Adult Medicine Diabetes mellitus, type IIMedication, long-term useAllergic rhinitis, seasonalRash and other nonspecific skin eruptionBurn, 10-19% BSA, L great toe - Ambulatory Encounter Juan Luis Bennett [facility] Adult Medicine UNK - Ambulatory Encounter Paula Norman Peyton Orr MedAdherence, Rebecca Maurerasquez Lauren Burkett UNK - Ambulatory Encounter Ellaal Keon [facility] Adult Medicine UNK - Ambulatory Encounter Paula Norman [facility] Adult Medicine UNK - Ambulatory Encounter Bethevangelist Greene [facility] Adult Medicine UNK - Ambulatory Encounter Beth Jc Norman [facility] Adult Medicine UNK - Ambulatory Encounter Paula Norman [employer]Log[employer] [facility] Adult Medicine UNK - Ambulatory Encounter Paula Norman [employer] [facility] Adult Medicine UNK - Ambulatory Encounter Ellaal Herbert [facility] Adult Medicine UNK - Ambulatory Encounter Jessica Archuleta [facility] Adult Medicine UNK [...] ASSOCIATION Adult Medicine UNK - Ambulatory Encounter Ellajay Herbert [employer] [facility] Adult Medicine UNK - Ambulatory Encounter Anh Yao [facility] Adult Medicine UNK - Ambulatory Encounter Linda Contreras [facility] UNK - Ambulatory Encounter Steve Archuleta [facility] Adult Medicine UNK - Ambulatory Encounter Ramiro Bishop MedAdherence [facility] Adult Medicine UNK - Ambulatory Encounter Paula Norman [facility] Adult Medicine UNK - Ambulatory Encounter Paula Norman Cathy Archuleta [facility] Adult Medicine UNK - Ambulatory Encounter Jessica Herbert [facility] Adult Medicine UNK - Ambulatory Encounter Angle Avila [facility] UNK - Ambulatory Encounter New Kamara Yao [facility] Adult Medicine UNK - Ambulatory Encounter Anh Yao [facility] Adult Medicine UNK - Ambulatory Encounter Ramiro Rizzo [employer] [facility] Adult Medicine UNK - Ambulatory Encounter Jose Armando Gonzalez [facility] Adult Medicine UNK - Ambulatory Encounter [facility] - Ambulatory Encounter Aamir Manning [facility] Adult Medicine UNK - Ambulatory Encounter Fax Status [facility] Services UNK - Ambulatory Encounter Fax Status [facility] UNK - Ambulatory Encounter Jennifer Tejedao [facility] Adult Medicine UNK - Ambulatory Encounter Fax Status [facility] UNK - Ambulatory Encounter Fax Status [facility] UNK - Ambulatory Encounter Fax Status [facility] UNK - Ambulatory Encounter Jennifer Manning [facility] Adult Medicine UNK - Ambulatory Encounter Jennifer Malin [facility] Adult Medicine UNK - Ambulatory Encounter Jennifer Malin [facility] Adult Medicine UNK - Ambulatory Encounter Jennifer Avila Armando [facility] Adult Medicine OverweightBMI 31.0-31.9Tobacco useObesityMedication, long-term useLiver function abnormality - Ambulatory Encounter Lilo Amaro [facility] Adult Medicine UNK - Ambulatory Encounter Steve Archuleta [facility] Adult Medicine UNK - Ambulatory Encounter Ramiro Samayoa [facility] Adult Medicine Microalbuminuria - Ambulatory Encounter Ramiro Rizzo [facility] Adult Medicine UNK - Ambulatory Encounter Ramiro Rizzo [facility] Adult Medicine UNK - Ambulatory Encounter Ramiro Arellano [facility] Adult Medicine HyperlipidemiaBMI 29.0- 29.9BMI 31.0-31.9 - Ambulatory En[facility] Adult Medicine UNK - Ambulatory Encounter Ana Laura Escobedo [facility] Vision UNK - Ambulatory Encounter Alice Malagon [facility] UNK - Ambulatory Encounter Janice Villalpando [facility] Art Glass Setter UNK - Ambulatory Encounter Rinal Herbert [place] Anisa LM Adult Medicine UNK - Ambulatory Encounter Rinal Herbert [facility] Adult Medicine UNK - Ambulatory Encounter Rinal Herbert Aleja Camacho Villalpando [place] An[place] LM Adult Medicine UNK - Ambulatory [...] UNK - Ambulatory Encounter Rinal Keon Escobedo [facility] Adult Medicine UNK - Ambulatory Encounter Bethene Greene [facility] Adult Medicine UNK - Ambulatory Encounter Ramiro Hare O'Isidro Hare [facility]idro [facility] - Ambulatory Encounter Ramiro Hare O'Isidro [facility] - Ambulatory Encounter Ramiro Hare O'Isidro Hare O'Isidro [employer] [facility] Adult Medicine UNK - Ambulatory Encounter Ramiro Hare O'Isidro Hare O'Isidro [facility] Adult Medicine UNK - Ambulatory Encounter Ramiro Hare O'Isidro Hare O'Isidro [facility] Adult Medicine UNK - Ambulatory Encounter Ramiro Rizzo [facility] Adult Medicine UNK - Ambulatory Encounter Ramiro Arellano [facility] Adult Medicine Immunization updatePreventive health careColorectal screeningProstate Cancer, Screening - Ambulatory Encounter Ramiro Guerra [facility] Adult Medicine UNK - Ambulatory Encounter Ramiro Rizzo [facility] UNK - Ambulatory Encounter Ramiro Rizzo [facility] Adult Medicine UNK - Ambulatory Encounter Ramiro Rizzo [facility] Adult Medicine UNK - Ambulatory Encounter Ramiro Rizzo [facility] Adult Medicine UNK - Ambulatory Encounter [facility] - [facility]ulatory Encounter [facility] - Ambulatory Encounter Fax [facility] UNK - Ambulatory Encounter Ramiro Rizzo [facility] Adult Medicine UNK - Ambulatory Encounter Ramiro Livingston [facility] Adult Medicine BMI 32.0-32.9Candidal balanitisBMI 29.0-29.9Preventive health carePeripheral vascular insufficiencyColorectal screeningProstate Cancer, Screening - Ambulatory Encounter [facility]ro [facility] UNK - Ambulatory Encounter Ramiro Friend'Isidro Friend'Isidro [employer]Log[facility] Adult Medicine UNK - Ambulatory Encounter Lacey Landes [facility] Dental UNK - Ambulatory Encounter Ramiro Hare O'Isidro Hare O'Isidrojay [place] Rodriguez Tammy Ragsdale [facility] UNK - Ambulatory Encounter Ramiro Hare O'Isidro Hare O'Isidro [facility] Adult Medicine UNK - Ambulatory Encounter Ramiro Friend'Isidro Hare O'Isidro Arellano [facility] Adult Medicine BronchitisCandidal balanitisImmunization update - Ambulatory Encounter Mag Son [facility] Adult Medicine UNK - Ambulatory Encounter Ramiro Hare O'Isidro Hare O'Isidro Guerra [facility] Adult Medicine UNK - Ambulatory Encounter Ramiro Hare O'Isidro Hare O'Isidro [facility] Adult Medicine UNK - Ambulatory Encounter Ramiro Friend'Isidro Hare O'Isidro LinkLogic [facility] Adult Medicine UNK - Ambulatory Encounter Ramiro Friend'Isidro Hare O'Isidro [facility] Adult Medicine UNK - Ambulatory Encounter Ramiro Friend'Isidro Hare O'Isidro Archuleta [facility] Adult Medicine BMI 32.0-32.9Bronchitis - Ambulatory Encounter Ramiro Friend'Isidro Friend'Isidro [facility] Adult Medicine UNK - Ambulatory Encounter Ramiro Friend'Isidro Hare O'Isidro [facility] Adult Medicine UNK - Ambulatory Encounter Ramiro Friend'Isidro Hare O'Isidro Son [facility] Adult Medicine Helicobacter pylori gastrointestinal tract infectionVaccination Against Influenza - Ambulatory Encounter Florencio Givens [facility] Adult Medicine UNK - Ambulatory Encounter Anna Schmidt Ko [facility] Adult Medicine UNK - Ambulatory Encounter Anna Brayan Ko [facility] Adult Medicine UNK - Ambulatory Encounter Ramiro Friend'Isidro Friend'Isidro [facility] Adult Medicine UNK - Ambulatory Encounter Av Tinajero [facility] Adult Medicine UNK - Ambulatory Encounter Ramiro Hare O'Isidro [facility] Adult Medicine UNK - Ambulatory Encounter Ramiro Friend'Isidro Sharma Eileen [facility] Adult Medicine UNK - Ambulatory Encounter Ramiro Friend'Isidro Hare O'Isidro [facility] Adult Medicine UNK - Ambulatory Encounter Ramiro Hare O'Isidro [facility] Adult Medicine UNK - Ambulatory Encounter Ramiro Friend'Isidro Hare O'Isidro [facility] Adult Medicine UNK - Ambulatory Encounter Ramiro Hare O'Isidro Zachary Eileen [facility] Adult Medicine Abdominal pain, left upper quadrant - Ambulatory Encounter Ramiro Friend'Isidro [facility] Adult Medicine UNK - Ambulatory Encounter Ramiro Friend'Iisdro Friend'Isidro [facility]ic [facility] Adult Medicine UNK - Ambulatory Encounter Av Tinajero [facility] Adult Medicine UNK - Ambulatory Encounter Ramiro Friend'Isidro [facility] Adult Medicine UNK - Ambulatory Encounter Ramiro Friend'Isidro Zachary Eileen [facility] Adult Medicine UNK - Ambulatory Encounter Ramiro Friend'Isidro FriendNicky LinkLogic LM Adult Medicine UNK - Ambulatory [...] - Ambulatory Encounter Ramiro Friend'Isidro Friend'Isidro [facility] Adult Medicine UNK - Ambulatory Encounter Ramiro Friend'Isidro Friend'Isidro [facility] Adult Medicine Diabetes mellitus, type IIErectile dysfunctionHyperlipidemiaHelicobacter pylori gastrointestinal tract infectionVitamin D deficiency - Ambulatory Encounter Ramiro Rizzo [employer] Adult Medicine UNK - Ambulatory Encounter Yuri Derek [facility] Adult Medicine UNK - Ambulatory Encounter Yuri Derek [facility] Adult Medicine UNK - Ambulatory Encounter Ramiro Friend'Isidro [facility] Adult Medicine UNK - Ambulatory Encounter Ramiro Friend'Isidro Friend'Isidro Sharma Eileen [facility] Adult Medicine OverweightHypertensionDiabetes mellitus, type IIAbdominal pain, left upper quadrantHx of syncopeErectile dysfunctionDiabetic peripheral neuropathy - Ambulatory Encounter Ramiro Friend'Isidro Friend'Isidro [facility] UNK - Ambulatory Encounter Av Tin[place]ero [place] [...] as % of total hemoglobin 162 % Co Юлия Steinbergrachel vitamin D 25-hydroxy, serum 10.3 ng/mL [facility]Logic [...] blood glucose, random 144 mg/dL Co [facility] blood glucose, random 198 mg/dL Co [facility] hemoglobin A1C, blood, as % of total [...] LinkLogic 3.4-10.8 blood glucose, random 120 mg/dL [facility] blood glucose, random 200 mg/dL [facility] Quantiferon Gold TB blood test for tuberculosis screening Negative LinkLogic Negative " hepatitis B surface antigen Negative [facility]Logic Negative " lipase, serum 38 U/L [facility]ic 0-59 " amylase, serum 44 1/L [facility] 31-124 " thyroid stimulating hormone, serum 2.240 [...] MEDICATION USE Medication Instructions Dates Provider Comments TRADJENTA 5 MG ORAL TABLET take 1 tablet daily Rinal Herbert HUMALOG 100 UNIT/ML SUBCUTANEOUS SOLUTION inject 4 [...] SOLOSTAR 100 UNIT/ML SUBCUTANEOUS SOLUTION PEN-INJECTOR inject 15 units sq Twice a Day Rinal Herbert 3 month supply TRIAMCINOLONE ACETONIDE [...] Juan Luis Bennett " alcohol use Never Co Юлия Moxey " social history reviewed E&M reviewed today Co Юлия Moxey " sexual orientation Heterosexual Co Юлия Moxey " assessment of health literacy ([facility] 2014 Standards, 3C10) Adequate Co Юлия Moxey " passive cigarette smoke exposure Yes Co Юлия Moxey " smoking status current every day smoker Co Юлия Moxey Exercise Program Referral T Rinal Herbert " Weight Management Counseling Provided T Rinal Herbert " Nutrition intervention T Rinal Herbert " drug use, illicit Never Namiraly Geremias " alcohol use Never Namiraly Geremias " social history reviewed E&M reviewed today Steve Archuleta " is there any chance that you could be ? No Nadaniela Archuleta " assessment of health literacy ([facility] 2014 Standards, 3C10) Adequate Nazjely Geremias " passive cigarette smoke exposure Yes Namiraly Geremias " smoking status current every day smoker Steve Archuleta drug use, illicit Never Co Юлия Moxey " alcohol use Never Co Юлия Moxey " social history reviewed E&M reviewed today Co Юлия Moxey " sexual orientation Heterosexual Co Юлия Moxey " assessment of health literacy ([facility] 2014 Standards, 3C10) Adequate Co Юлия Moxey [...] Юлия Moxey " assessment of health literacy ([facility] 2014 Standards, 3C10) Adequate Co Юлия Moxey [...] Юлия Moxey " assessment of health literacy ([facility] 2014 Standards, 3C10) Adequate Co Юлия Moxey " passive cigarette smoke exposure Yes Co Юлия Moxey " smoking status current every day smoker Co Юлия Moxey time of call 06/27/2019 10:24 AM Rebecca Browning Exercise Program Referral T Jessica Herbert " Weight Management Counseling Provided T Jessica Herbert " Nutrition intervention T Rinjay Nortonel " drug use, illicit Never Steve Archuleta " alcohol use Never Steve Archuleta " social history reviewed E&M reviewed today Steve Archuleta " is there any chance that you could be ? No Steve Archuleta " assessment of health literacy ([facility] 2014 Standards, 3C10) Adequate Nadaniela Archuleta " passive cigarette smoke exposure No Steve Archuleta " smoking status current every day smoker Steve Archuleta smoking, advice to quit Yes Paula Norman " cigarettes, number smoked per day 5-6 Paula Norman " drug use, illicit Never Loraina Roberto " alcohol use Never Loraina Roebrto " smoking status current every day smoker Mamtasujata Roberto " social history reviewed E&M reviewed today Lormarilee Mejia " assessment of health literacy ([facility] 2014 Standards, 3C10) Adequate Loraina Roberto " passive cigarette smoke exposure No Loraina Roberto " Exercise Program Referral T Loraina Roberto " Weight Management Counseling Provided T Loraina Roberto " Nutrition intervention T Mamtaa Roberto [...] Cathy Quintanilla " assessment of health literacy ([facility] 2014 Standards, 3C10) Adequate Cathy Dwight " passive cigarette smoke exposure No Cathy Dwight " smoking status current every day smoker Cathy Quintanilla time of call 10/25/2018 9:14 AM Angle Avila social history reviewed E&M reviewed today Jennifer Malin " drug use, illicit Never Aamir Manning " alcohol use Never Aamir Manning " Occupation #1 [employer] Aamri Manning " sexual orientation Heterosexual Aamir Manning " assessment of health literacy ([facility] 2014 Standards, 3C10) Adequate Aamir Manning " [...] today Zachary Eileen drug use, illicit Never Garden[place] Anisa " alcohol use Never Savanna Anisa " social history reviewed E&M reviewed today Gardena Anisa " passive cigarette smoke exposure No Savanna Anisa " smoking status current every day smoker Gardena Anisa " Exercise Program Referral T Gardena Anisa " Weight Management Counseling Provided T Gardena Anisa " Nutrition intervention T Gardena Anisa Exercise Program Referral T Jessica Herbert " Weight Management Counseling Provided T Jessica Herbert " Nutrition intervention T Jessica Herbert " drug use, illicit Never Channrohan Quach " alcohol use Never Channrohan Quach " is there any chance that you could be ? No Channin Main " smoking status current every day smoker Alyssain Main Exercise Program Referral Chelsey Rizzo " Weight Management Counseling Provided Chelsey Rizzo " Nutrition intervention Chelsey Rizzo " passive cigarette smoke exposure No Azchary Eileen " smoking status current every day [...] intervention Chelsey Rizzo " alcohol use Never Nazjemagda Archuleta " drug use, illicit Never Nazjely Geremias " social history reviewed E&M reviewed today Steve Archuleta " cigarettes, number smoked per day 1-4 Nazjely Geremias " smoking status current every day smoker Nalexjely Geremias " passive cigarette smoke exposure No Steve Archuleta " is there any chance that you could be ? No Steve Archuleta Exercise Program Referral Chelsey Rizzo " Weight Management Counseling Provided Chelsey Rizzo " Nutrition intervention Chelsey Rizzo " drug use, illicit Never aMg Son " alcohol use Never Mag Son " social history reviewed E&M reviewed today Mag Son " is there any chance that you could be ? No Mag Son " cigarettes, number smoked per day 4-5 Magsyed Son " passive cigarette smoke exposure No [...] Rizzo MENTAL STATUS Date Observation Value Provider Generalized Anxiety Disorder Questionnaire - Question 2 0 Co Юлия Bennett " Generalized Anxiety Disorder Questionnaire - Question 1 0 Co Юлия Bennett assessment of judgment and insight E&M intact Rinal Herbert " mental status examination: orientation E&M oriented to time, place, and person Rinal Herbert " assessment of mood and affect E&M depressed Rinal Herbert " Generalized Anxiety Disorder Questionnaire - Question 2 0 Steve Archuleta " Generalized Anxiety Disorder Questionnaire - Question 1 0 Steve Archuleta mental status examination: recall E&M intact for [...] E&M oriented to time, place, and person Ramrio Rizzo " assessment of judgment and insight [...] Anxiety Disorder Questionnaire - Question 1 0 Gardena Anisa assessment of judgment and insight E&M intact [...] insight E&M intact Ramiro Hare Matthias " mental status examination: orientation E&M oriented [...] Disorder Questionnaire - Question 2 0 Zachary rAellano " Generalized Anxiety Disorder Questionnaire - Question [...] 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 Sliding Fee Scale 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 [id number] Family Planning/WHFPT Medicaid [id number] [employer] Other [id number] ADVANCE DIRECTIVES Name Date DISCUSSED - NO DECISION MADE TREATMENT PLAN Date Name Fructosamine Hemoglobin A1c Vitamin D, 25-Hydroxy Urinalysis Complete w/reflex to [...] - - Ofc Vst, Est Level IV Prescription Assistance (Non-HIV) Free Glucometer- [facility] Ofc Vst, Est Level IV Nephrology - Adult - [facility] Ofc Vst, Est Level IV Ofc Vst, Est Level IV Ofc Vst, Est Level IV Ofc Vst, Est Level IV Ofc Vst, Est Level IV Vision Dental - Internal Nephrology Adult [facility] INFLUENZA VACCINE QUADRIVALENT 3 YRS PLUS IM Admin of Vaccine - Injection - 1 Est Patient Detailed - 29980 Nephrology - Adult [facility] Est Patient Detailed - 94522 Ofc Vst, Est Level IV Glucose Stick Prescription Assistance (Non-HIV) Ofc Vst, Est Level IV Vision Diabetes Education Endocrinology - Adult - [facility] Est Patient Detailed - 71447 Est Patient Well Exam (40 - 64 Yrs) - 66049 Pneumovax Vaccine PPSV23 Admin of Vaccine - Injection - 1 Est Patient Detailed - 64248 Prevnar (PCV13) IM TDAP Admin of Vaccine - Injection - Each Add'l Admin of Vaccine - Injection - 1 Est Patient Detailed - 52031 Est Patient Exp Problem - 30826 Est Patient Exp Problem - 09502 Est Patient Exp Problem - 43046 Est Patient Problem Focus - 14160 Glucose Stick Est Patient Exp Problem - 19604 Glucose Stick Venipuncture Handling of specimen for transfer New Patient Comprehensive - 34891 HISTORY OF PROCEDURES Procedure Date Procedure Name Provider Procedure Notes Status Glucose Stick Jessica Herbert completed Glucose Stick Ramiro Rizzo completed Glucose Stick Ramiro Rizzo completed Venipuncture Ramiro Rizzo completed GOALS No Information Available [facility] No Information Available
--- OUTSIDE RECORDS SUMMARY | 2019-10-07 23:04 | XMS REPORT ---
Author Author Admin, Tyrone Organization Unknown Address Unknown Phone Unavailable PROBLEMS Condition Status Date Provider Notes Elevated LFTs active Paula Canalesd Osteomyelitis, acute, L great toe active Paula Norman r/o dry gangrene CKD stage 4 (gfr 15-29) active Paula Norman Asymptomatic microscopic hematuria active Paula Canalesd Burn, 10-19% BSA, L great toe completed - Paula Canalesd Rash and other nonspecific skin [...] Provider Location Encounter Diagnosis - Ambulatory Encounter Stephen Soliz [facility] Adult Medicine UNK - Ambulatory Encounter Stephen Soliz [facility] Adult Medicine UNK - Ambulatory Encounter Paula Castropard [facility] Adult Medicine UNK - Ambulatory Encounter Paula Castropard Juan Luis Bennett [facility] Adult Medicine Burn, 10-19% BSA, L great toeElevated LFTs - Ambulatory Encounter Jessica Herbert [facility] Adult Medicine UNK - Ambulatory Encounter Jessica Archuleta [facility] Adult Medicine UNK - Ambulatory Encounter Steve Archuleta [facility] Adult Medicine UNK - Ambulatory Encounter Paula Castropard [facility] Adult Medicine UNK - Ambulatory Encounter Paula Norman [facility] Adult Medicine UNK - Ambulatory Encounter Paula Castropard Juan Luis Bennett [facility] Adult Medicine Osteomyelitis, acute, L great toe - Ambulatory Encounter Paula Castroparmalina Berriosd MedAdherence, LM Adult Medicine UNK - Ambulatory Encounter Rachana Alexsander [facility] FLOOR COVERINGS SALESPERSON UNK - Ambulatory Encounter Paula Castroparmalina Norman [facility] Adult Medicine UNK - Ambulatory Encounter Paula Castroparmalina Castropard LM Adult Medicine UNK - Ambulatory Encounter Paula Castroparmalina Norman [facility] Adult Medicine UNK - Ambulatory Encounter Paula Castroparmalina Castropard LM Adult Medicine UNK - Ambulatory Encounter Co Юлия Bennett [facility] Adult Medicine UNK - Ambulatory Encounter Co Юлия Bennett [facility] Adult Medicine UNK - Ambulatory Encounter Paula Canalesd Paula Canalesd LinkLogic LM Adult Medicine UNK - Ambulatory Encounter Paula Canalesd Paula Castropard LM Adult Medicine CKD stage 4 (gfr 15-29) - Ambulatory Encounter Paula Canalesd LinkLogic LM Adult Medicine UNK - Ambulatory Encounter Paula Castropard LM Adult Medicine Asymptomatic microscopic hematuria - Ambulatory Encounter Paula Canalesd Paula Castropard [facility] Adult Medicine UNK - Ambulatory Encounter Paula Canalesd LinkLogic LM Adult Medicine UNK - Ambulatory Encounter Paula Castropard Paula Castropard [facility] Adult Medicine UNK - Ambulatory Encounter Paula Castropard Paula Castropard Rinal Herbert Co Юлия Bennett [facility] Adult Medicine UNK - Ambulatory Encounter Paula Castropard Paula Castropard Co Юлия Bennett [facility] Adult Medicine UNK - Ambulatory Encounter Paula Norman [facility] Adult Medicine UNK - Ambulatory Encounter Paula Norman [facility] Adult Medicine UNK - Ambulatory Encounter Paula Norman Radha [place] Юлия Steinbergxjone [facility] Adult Medicine Diabetes mellitus, type IIMedication, long-term useAllergic rhinitis, seasonalRash and other nonspecific skin eruptionBurn, 10-19% BSA, L great toe - Ambulatory Encounter Co Юлия Bennett [facility] Adult Medicine UNK - Ambulatory Encounter Paula Norman Peyton [facility] [place] UNK - Ambulatory Encounter Jessica Herbert [facility] Adult Medicine UNK - Ambulatory Encounter Paula Norman [facility] Adult Medicine UNK - Ambulatory Encounter Beth Greene [facility] Adult Medicine UNK - Ambulatory Encounter Beth Jcelaine Norman [facility] Adult Medicine UNK - Ambulatory Encounter Paula Norman LinkLogic [facility] Adult Medicine UNK - Ambulatory Encounter Paula Norman LinkLogic [facility] Adult Medicine UNK - Ambulatory Encounter Jessica Herbert [facility] Adult Medicine UNK - Ambulatory Encounter Ellaal Herbert Steve Archuleta [facility] Adult Medicine UNK - Ambulatory Encounter Paula Norman [facility] Adult Medicine UNK - Ambulatory Encounter Paula Norman [facility] Adult Medicine UNK - Ambulatory Encounter Paula Norman John Mejia [facility] Adult Medicine Allergic rhinitis, seasonalRash and other nonspecific skin eruption - Ambulatory Encounter Paula Norman Abbemagda Geremias Espinosa LM Adult Medicine UNK - Ambulatory Encounter Paula Norman LinkLogic LM Adult Medicine UNK - Ambulatory Encounter Paula Norman LinkLogic LM Adult Medicine UNK - Ambulatory Encounter Jessica Herbert LinkLogic LM Adult Medicine UNK - Ambulatory Encounter Anh Yao [facility] Adult Medicine UNK - Ambulatory Encounter [facility] UNK - Ambulatory Encounter Steve Archuleta [facility] Adult Medicine UNK - Ambulatory Encounter Ramiro JimenezAdherence [facility] Adult Medicine UNK - Ambulatory Encounter Paula Norman LM Adult Medicine UNK - Ambulatory Encounter Paula Norman Cathy Archuleta [facility] Adult Medicine UNK - Ambulatory Encounter Jessica Herbert [facility] Adult Medicine UNK - Ambulatory Encounter Angle Avila [facility] Public Health Services UNK - Ambulatory Encounter [place]rogue Anh Yao LM Adult Medicine UNK - Ambulatory Encounter Anh Samayoa LM Adult Medicine UNK - Ambulatory Encounter Ramiro JacobsenLogic LM Adult Medicine UNK - Ambulatory Encounter Jose Armando Gonzalez [facility] Adult Medicine UNK - Ambulatory Encounter Jennifer Malin LinkLogic [facility] Adult Medicine UNK - Ambulatory Encounter Aamirmohinder Manning [facility] Adult Medicine UNK - Ambulatory Encounter Fax Status [facility] UNK - [facility] - [facility] Encounter Jennifer Manning [facility] Adult Medicine UNK - Ambulatory Encounter Fax Status [facility] UNK - Ambulatory Encounter Fax Status [facility] UNK - Ambulatory Encounter Fax Status [facility] UNK - Ambulatory Encounter Jennifer Manning [facility] Adult Medicine UNK - Ambulatory Encounter Jennifer Malin [facility] Adult Medicine UNK - Ambulatory Encounter Jennifer Malin [facility] Adult Medicine UNK - Ambulatory Encounter Jennifer Strickland-Carlos Manning [facility] Adult Medicine OverweightBMI 31.0-31.9Tobacco useObesityMedication, long-term useLiver function abnormality - Ambulatory Encounter Lilo Amaro [facility] Adult Medicine UNK - Ambulatory Encounter Steve Archuleta [facility] Adult Medicine UNK - Ambulatory Encounter Ramiro Samayoa [facility] Adult Medicine Microalbuminuria - [facility] - Ambulatory Encounter Ramiro Rizzo [facility] Adult Medicine UNK - Ambulatory Encounter Ramiro Arellano [facility] Adult Medicine HyperlipidemiaBMI 29.0- 29.9BMI 31.0-31.9 - Ambulatory Encounter Rinal Herbert [facility] Adult [facility] UNK - Ambulatory Encounter Ana Laura Escobedo [facility] Vision UNK - Ambulatory Encounter Alcie [facility] [place] Services UNK - Ambulatory Encounter Janice Villalpando [facility] Vascular Tech UNK - Ambulatory Encounter Rinal Herbert [place] Anisa [facility] Adult Medicine UNK - Ambulatory Encounter Rinal Herbert [facility] Adult [facility] UNK - Ambulatory Encounter Rinal Herbert Aleja Villalpando [place] Anisa [facility] Adult Medicine UNK - [...] - Ambulatory Encounter Rinal Herbert Aydee Parsonluci Escobedo [facility] Adult Medicine UNK - Ambulatory Encounter Beth Jc [facility] Adult Medicine UNK - Ambulatory Encounter Ramiro Hare ONicky Hare O'Isidro Beth Jc [facility] Adult Medicine UNK - Ambulatory Encounter Ramiro Hare O'Isidro [facility] Adult Medicine UNK - Ambulatory Encounter Ramiro Rizzo LinkLogduy [facility] Adult Medicine UNK - Ambulatory Encounter Ramiro Rizzo [facility] Adult Medicine UNK - Ambulatory Encounter Ramiro Rizzo [facility] Adult Medicine UNK - Ambulatory Encounter Ramiro Rizzo [facility] Adult Medicine UNK - Ambulatory Encounter Ramiro Sharma [facility] Adult Medicine Immunization updatePreventive health careColorectal screeningProstate Cancer, Screening - Ambulatory Encounter Ramiro Guerra [facility] Adult Medicine UNK - Ambulatory En[facility] - Ambulatory Encounter Ramiro Rizzo [facility] Adult Medicine UNK - Ambulatory Encounter Ramiro Rizzo [facility] Adult Medicine UNK - Ambulatory [facility] - Ambulatory Encounter Fax Status LinkLogic [facility] UNK - Ambulatory Encounter Fax Status LinkLogic [facility] UNK - Ambulatory Encounter Fax Status LinkLogic [facility] UNK - Ambulatory Encounter Ramiro Rizzo [facility] Adult Medicine UNK - Ambulatory Encounter Ramiro Ayers Pete Zacharyamanda Garcia Miki [facility] Adult Medicine BMI 32.0-32.9Candidal balanitisBMI 29.0-29.9Preventive health carePeripheral vascular insufficiencyColorectal screeningProstate Cancer, Screening - Ambulatory Encounter Ramiro Friend'Isidro Friend'Isidro LinkLogic [facility] Adult Medicine UNK - Ambulatory Encounter Ramiro Friend'Isidro Hare O'Isidro LinkLogic [facility] Adult Medicine UNK - Ambulatory Encounter Lacey Hall [facility] Dental UNK - Ambulatory Encounter Ramiro Friend'Isidro Friend'Isidro [facility] UNK - Ambulatory Encounter Ramiro Rizzo [facility] Adult Medicine UNK - Ambulatory Encounter Ramiro Friend'Isidro Arellano [facility] Adult Medicine BronchitisCandidal balanitisImmunization update - Ambulatory Encounter Mag Son [facility] Adult Medicine UNK - Ambulatory Encounter Ramiro Guerra [facility] Adult Medicine UNK - Ambulatory Encounter Ramiro Rizzo [facility] Adult Medicine UNK - Ambulatory Encounter Ramiro Friend'Isidro LinkLogduy [facility] Adult Medicine UNK - Ambulatory Encounter Ramiro Friend'Isidro [facility] Adult Medicine UNK - Ambulatory Encounter Ramiro Friend'Isidro Friend'Isidro Archuleta [facility] Adult Medicine BMI 32.0-32.9Bronchitis - Ambulatory Encounter Ramiro العراقيIsidro Friend'Isidro LM Adult Medicine UNK - Ambulatory Encounter Ramiro Friend'Isidro LM Adult Medicine UNK - Ambulatory Encounter Ramiro Friend'Isidro Friend'Iisdro Magsyed Son [facility] Adult Medicine Helicobacter pylori gastrointestinal tract infectionVaccination Against Influenza - Ambulatory Encounter Florencio Givens [facility] Adult Medicine UNK - Ambulatory Encounter Anna Connell [facility] Adult Medicine UNK - Ambulatory Encounter Anna Connell LinkLogic [facility] Adult Medicine UNK - Ambulatory Encounter Ramiro Friend'Isidro Friend'Isidro LinkLogic [facility] Adult Medicine UNK - Ambulatory Encounter Av Tinajero [facility] Adult Medicine UNK - Ambulatory Encounter Ramiro Friend'Isidro Friend'Isidro LM Adult Medicine UNK - Ambulatory Encounter Ramiro Friend'Isidro Friend'Isidro Arellano [facility] Adult Medicine UNK - Ambulatory Encounter Ramiro Friend'Isidro Friend'Isidro LinkLogic [facility] Adult Medicine UNK - Ambulatory Encounter Ramiro Friend'Isidro Friend'Isidro LM Adult Medicine UNK - Ambulatory Encounter Ramiro Friend'Isidro Friend'Isidro LM Adult Medicine UNK - Ambulatory Encounter Ramiro Friend'Isidro Friend'Isidro Arellano [facility] Adult Medicine Abdominal pain, left upper quadrant - Ambulatory Encounter Ramiro Friend'Isidro Friend'Isidro LM Adult Medicine UNK - Ambulatory Encounter Ramiro Friend'Isidro Friend'Isidro LinkLogic [facility] Adult Medicine UNK - Ambulatory Encounter Av [...] Hare O'Isidro Zachary Eileen [facility] Adult [facility] OverweightHypertensionDiabetes mellitus, type IIAbdominal pain, left upper quadrantHx of syncopeErectile dysfunctionDiabetic peripheral neuropathy - Ambulatory Encounter Ramiro [facility] UNK - Ambulatory Encounter Av Tinajero [facility] Adult Medicine UNK - Ambulatory Encounter Av Tinajero [facility] Adult Medicine UNK VITAL SIGNS No Information [...] of total hemoglobin 162 % Co Юлия Bennett vitamin D 25-hydroxy, serum 10.3 ng/mL [...] blood glucose, random 198 mg/dL Co Юлия Moxey hemoglobin A1C, blood, as % of total [...] High blood glucose, fasting 138 mg/dL Savanna Anisa microalbumin/total urine volume 2318.5 mg/L LinkLogic [...] LinkLogic 3.4-10.8 blood glucose, random 120 mg/dL [facility] blood glucose, random 200 mg/dL [facility] Quantiferon Gold TB blood test [...] MEDICATION USE Medication Instructions Dates Provider Comments AMOXICILLIN-POT CLAVULANATE 875-125 MG ORAL TABLET 1 tab By Mouth Twice a Day Paula Norman BACTRIM DS 800-160 MG ORAL TABLET 1 tab by mouth twice a day Paula Norman BUMEX 1 MG ORAL TABLET 1 tab By Mouth Every Day Paula Norman METOPROLOL SUCCINATE ER 25 MG ORAL TABLET EXTENDED RELEASE 24 HOUR 1 tab by mouth daily Paula Norman TRADJENTA 5 MG ORAL TABLET take 1 tablet daily Jessica Herbert HUMALOG 100 UNIT/ML SUBCUTANEOUS SOLUTION inject 4 units pre meal Three Times a Day Paula Norman MUPIROCIN 2 % EXTERNAL OINTMENT apply 4 times a day as needed Paula Canalesd AMOXICILLIN-POT CLAVULANATE 875-125 MG ORAL TABLET take 1 tab By Mouth Twice a Day - Paula Canalesd BD PEN NEEDLE SHORT U/F 31G X 8 MM use for lantus injections Jessica Herbert LANTUS SOLOSTAR 100 UNIT/ML SUBCUTANEOUS SOLUTION PEN-INJECTOR inject 15 units sq Twice a Day Jessica Herbert 3 month supply TRIAMCINOLONE ACETONIDE 0.1 % EXTERNAL CREAM apply to affected area three times a day as needed for itching and red rash Paula Canalesd NASONEX 50 MCG/ACT NASAL SUSPENSION 2 sprays each nostril every day Paula Castropard LORATADINE 10 MG ORAL TABLET 1 By Mouth once a day as needed for allergies Paula Csatropard HYDRALAZINE HCL 25 MG ORAL TABLET 1 tab By Mouth Three Times a Day Paula Castropard GLIPIZIDE 10 MG ORAL TABLET 1 tab [...] Юлия Moxey " assessment of health literacy ([facility] 2014 Standards, 3C10) Adequate Co Юлия Moxey " passive cigarette smoke exposure Yes Co Юлия Moxey " smoking status current every day smoker Co Юлия Moxey Exercise Program Referral T Rinal Herbert " Weight Management Counseling Provided T Rinal Herbert " Nutrition intervention T Rinal Herbert " drug use, illicit Never Nazjely Geremias " alcohol use Never Josettejely Geremias " social history reviewed E&M reviewed today Steve Archuleta " is there any chance that you could be ? No Nazjely Geremias " assessment of health literacy ([facility] 2014 Standards, 3C10) Adequate Sagrariozilanly Geremias " passive cigarette smoke exposure Yes Nazjely Geremias " smoking status current every day smoker Steve Archuleta drug use, illicit Never Co Юлия Moxey " alcohol use Never Co Юлия Moxey " social history reviewed E&M reviewed today Co Юлия Moxey " sexual orientation Heterosexual Co Юлия Moxey " assessment of health literacy ([facility] 2014 Standards, 3C10) Adequate Co Юлия [...] Юлия Moxey " assessment of health literacy ([facility] 2014 Standards, 3C10) Adequate Co Юлия [...] Юлия Moxey " assessment of health literacy ([facility] 2014 Standards, 3C10) Adequate Co Юлия [...] Steve Archuleta " assessment of health literacy ([facility] 2014 Standards, 3C10) Adequate Steve Archuleta " passive cigarette smoke exposure No Steve Archuleta " smoking status current every day smoker Steve Archuleta smoking, advice to quit Yes Paula Norman " cigarettes, number smoked per day 5-6 Paula Norman " drug use, illicit Never John Roberto " alcohol use Never John Roberto " smoking status current every day smoker John Mejia " social history reviewed E&M reviewed today John Roberto " assessment of health literacy ([facility] 2014 Standards, 3C10) Adequate John Roberto [...] Cathy Quintanilla " assessment of health literacy ([facility] 2014 Standards, 3C10) Adequate Cathy Quintanilla " passive cigarette smoke exposure No Cathy Dwight " smoking status current every day smoker Cathy Quintanilla time of call 10/25/2018 9:14 AM Angle Avila social history reviewed E&M reviewed today Jennifer Malin " drug use, illicit Never Aamir Manning " alcohol use Never Aamir Manning " Occupation #1 [employer] Aamir Manning " sexual orientation Heterosexual Aamir Manning " assessment of health literacy ([facility] 2014 Standards, 3C10) Adequate Aamir Manning [...] Never Savanna Anisa " alcohol use Never [place] Anisa " social history reviewed E&M reviewed today Savanna Lange " passive cigarette smoke exposure No Savanna Lange " smoking status current every day smoker [place] Wadezy " Exercise Program Referral T Savanna Anisa " Weight Management Counseling Provided T Savannalucinda Lawrencey " Nutrition intervention T [place] Anisa Exercise Program Referral T Rinjay Herbert [...] chance that you could be ? No Abbely Geremias Exercise Program Referral Chelsey Rizzo " [...] Date Observation Value Provider mental status examination: orientation E&M oriented to [...] Questionnaire - Question 2 0 Co Юлия Steinbergrachel " Generalized Anxiety Disorder Questionnaire - Question [...] Questionnaire - Question 2 0 Co Юлия Steinbergrachel " Generalized Anxiety Disorder Questionnaire - Question 1 0 Co Юлия Steinbergrachel assessment of judgment and insight E&M intact Rinal Herbert " mental status examination: orientation E&M oriented to time, place, and person Rinal Herbert " assessment of mood and affect E&M no depression, anxiety, or agitation Rinal Hrebert " Generalized Anxiety Disorder Questionnaire - Question [...] libertarian ID Sliding Fee - Cat 1 Striiv [id number] BCBS OF [facility] [id number] [facility] 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 [id number] Sliding 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 [id number] Sliding 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 [facility] [employer] Other FAMILY PLANNING*TITLE V [id number] Fee Scale 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 [id number] Family Planning/WHFPT Medicaid [id number] [employer] Other [id number] ADVANCE DIRECTIVES Name Date DISCUSSED - NO [...] Est Level IV Nephrology - Adult - [facility] Ofc Vst, Est Level IV Prescription Assistance (Non-HIV) Free Glucometer- [facility] Ofc Vst, Est Level IV Nephrology - Adult - [facility] Ofc Vst, Est Level IV Ofc Vst, Est Level IV Ofc Vst, Est Level IV Ofc Vst, Est Level IV Ofc Vst, Est Level IV Vision Dental - Internal Nephrology - Adult - [facility] INFLUENZA VACCINE QUADRIVALENT 3 YRS PLUS IM Admin of Vaccine - Injection - 1 Est Patient Detailed - 30362 Nephrology - Adult - [facility] Est Patient Detailed - 61850 Ofc Vst, Est Level IV Glucose Stick Prescription Assistance (Non-HIV) Ofc Vst, Est Level IV Vision Diabetes Education Endocrinology - Adult - [facility] Est Patient Detailed - 67681 Est Patient Well Exam (40 - 64 Yrs) - 61350 Pneumovax Vaccine PPSV23 Admin of Vaccine - Injection - 1 Est Patient Detailed - 56933 Prevnar (PCV13) IM TDAP Admin of Vaccine - Injection - Each Add'l Admin of Vaccine - Injection - 1 Est Patient Detailed - 25673 Est Patient Exp Problem - 93991 Est Patient Exp Problem - 56498 Est Patient Exp Problem - 21610 Est Patient Problem Focus - 71653 Glucose Stick Est Patient Exp Problem - 03147 Glucose Stick Venipuncture Handling of specimen for transfer New Patient Comprehensive - 12187 HISTORY OF PROCEDURES Procedure Date Procedure Name Provider Procedure Notes Status Glucose Stick Jessica Herbert completed Glucose Stick Ramiro Rizzo completed Glucose Stick Ramiro Rizzo completed Venipuncture Ramiro Rizzo completed GOALS No Information Available [facility]ALTH [facility] No Information Available
--- OUTSIDE RECORDS SUMMARY | 2019-10-07 23:05 | XMS REPORT ---
Author Author Admin, [place] Organization Unknown Address Unknown Phone Unavailable PROBLEMS [...] Provider Location Encounter Diagnosis - Ambulatory Encounter Ramiro Herbert [facility] UNK - Ambulatory Encounter Paula Norman Link[facility] Adult Medicine UNK - Ambulatory Encounter Stephen Soliz [facility] Adult Medicine UNK - Ambulatory Encounter Stephen Soliz [facility] Adult Medicine UNK - Ambulatory Encounter Paula Norman [facility] Adult Medicine UNK - Ambulatory Encounter Paula Norman Co Юлия Bennett [facility] Adult Medicine Burn, 10-19% BSA, L great toeElevated LFTs - Ambulatory Encounter Jessica Herbert [facility] Adult Medicine UNK - Ambulatory Encounter Jessica Leblanc [facility] Adult Medicine UNK - Ambulatory Encounter Steve Archuleta [facility] Adult Medicine UNK - Ambulatory Encounter Paula Castropard Paula Castropard [facility] Adult Medicine UNK - Ambulatory Encounter Puala Canalesd Paula Castropard LM Adult Medicine UNK - Ambulatory Encounter Paula Canalesd Paula Canalesd Co Юлия Steinbergxjone [facility] Adult Medicine Osteomyelitis, acute, L great toe - Ambulatory Encounter Paula Castropard Paula Castropard Kaylie Curtis MedAdherence, LM Adult Medicine UNK - Ambulatory Encounter Rachana Minor [facility] 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 - Ambulatory Encounter Paula Canalesd Paula Castropard LM Adult Medicine UNK - Ambulatory Encounter Paula Canalesd Paula Castropard LM Adult Medicine UNK - Ambulatory Encounter Paula Canalesd Paula Castropard [facility] Adult Medicine UNK - Ambulatory Encounter Paula Castropard Paula Castropard [facility] Adult Medicine UNK - Ambulatory Encounter Co Юлия Bennett [facility] Adult Medicine UNK - Ambulatory Encounter Co Юлия Bennett [facility] Adult Medicine UNK - Ambulatory Encounter Paula Castropard Paula Castropard [employer] [facility] Adult Medicine UNK - Ambulatory Encounter Paula Castropard Paula Castropard [facility] Adult Medicine CKD stage 4 (gfr 15-29) - Ambulatory Encounter Paula Castropard Paula Castropard LinkLogic LM Adult Medicine UNK - Ambulatory Encounter Paula Canalesd Paula Castropard LM Adult Medicine Asymptomatic microscopic hematuria - Ambulatory Encounter Paula Castropard Paula Castropard LinkLogic LM Adult Medicine UNK - Ambulatory Encounter Paula Canalesd Paula Castropard [employer]Logic LM Adult Medicine UNK - Ambulatory Encounter Paula Castropard Paula Castropard LM Adult Medicine UNK - Ambulatory Encounter Paula Emerson Lopez Herbert Co Юлия Bennett [facility] Adult Medicine UNK - Ambulatory Encounter Paula Norman Co Юлия Steinbergxjone [facility] Adult Medicine UNK - Ambulatory Encounter Paula Norman LM Adult Medicine UNK - Ambulatory Encounter Paula Norman [facility] Adult Medicine UNK - Ambulatory Encounter Paula Norman Radha [place] Co Юлия [facility] Adult Medicine Diabetes mellitus, type IIMedication, long-term useAllergic rhinitis, seasonalRash and other nonspecific skin eruptionBurn, 10-19% BSA, L great toe - Ambulatory Encounter Co Юлия Steinbergjone [facility] Adult Medicine UNK - Ambulatory Encounter Paula Norman [facility] [place] UNK - Ambulatory Encounter Ellajay Keon [facility] Adult Medicine UNK - Ambulatory Encounter Paula Norman [facility] Adult Medicine UNK - Ambulatory Encounter Beth Jc [facility] Adult Medicine UNK - Ambulatory Encounter Bethene Norman [facility] Adult Medicine UNK - Ambulatory Encounter Paula Norman [employer] [facility] Adult Medicine UNK - Ambulatory Encounter Paula Norman [employer] [facility] Adult Medicine UNK - Ambulatory Encounter Ellaal Herbert [facility] Adult Medicine UNK - Ambulatory Encounter Ellaal Herbert Steve Archuleta [facility] Adult Medicine UNK - Ambulatory Encounter Paula Canalesd [facility] Adult Medicine UNK - Ambulatory Encounter Paula Norman [facility] Adult Medicine UNK - Ambulatory Encounter Paula Norman John Mejia [facility] Adult Medicine Allergic rhinitis, seasonalRash and other nonspecific skin eruption - Ambulatory Encounter Paula Norman Sagrariodaniela Geremias Espinosa [facility] Adult Medicine UNK - Ambulatory Encounter Paula Norman [employer] [facility] Adult Medicine UNK - Ambulatory Encounter [facility] - Ambulatory Encounter Jessica Herbert [facility] Adult Medicine UNK - Ambulatory Encounter Anh Samayoa [facility] Adult Medicine UNK - Ambulatory Encounter Linda Contreras [facility] UNK - Ambulatory Encounter Steve Archuleta [facility] Adult Medicine UNK - [facility] - Ambulatory Encounter Paula Norman [facility] Adult Medicine UNK - Ambulatory Encounter Paula Norman Cathy Archuleta [facility] Adult Medicine UNK - Ambulatory Encounter Jessica Herbert [facility] Adult Medicine UNK - Ambulatory Encounter Angle Avila [facility] Public Health Services UNK - Ambulatory Encounter [place] [facility] Adult Medicine UNK - Ambulatory Encounter Anh Samayoa [facility] Adult Medicine UNK - Ambulatory [facility] UNK - Ambulatory Encounter Jose Armando Gonzalez [facility] Adult Medicine UNK - Ambulatory Encounter Jennifer JacobsenLabette Healthduy [facility] Adult Medicine UNK - Ambulatory Encounter Aamir Manning [facility] Adult Medicine UNK - Ambulatory Encounter Fax Status [facility] Services UNK - Ambulatory En[facility] - Ambulatory Encounter Jennifer Manning [facility] Adult Medicine UNK - Ambulatory Encounter [facility] - Ambulatory Encounter Fax Status [facility] UNK - Ambulatory Encounter Fax Status [facility] UNK - Ambulatory Encounter Jennifer Manning [facility] Adult Medicine UNK - Ambulatory Encounter Jennifer Malin [facility] Adult Medicine UNK - Ambulatory Encounter Jennifer Malin [facility] Adult Medicine UNK - Ambulatory Encounter Jennifer Strickland-Carlos Tejedao [facility] Adult Medicine OverweightBMI 31.0-31.9Tobacco useObesityMedication, long-term useLiver function abnormality - Ambulatory Encounter Lilo Amaro [facility] Adult Medicine UNK - Ambulatory Encounter Steve Archuleta [facility] Adult Medicine UNK - Ambulatory Encounter Ramiro Samayoa [facility] Adult Medicine Microalbuminuria - Ambulatory Encounter Ramiro Rizzo [facility] Adult Medicine UNK - [facility] - Ambulatory Encounter Ramiro Garzais [facility] Adult Medicine HyperlipidemiaBMI 29.0- 29.9BMI 31.0-31.9 - Ambulatory Encounter Rinal Herbert [facility] Adult Medicine UNK - Ambulatory Encounter Ana Laura Escobedo [facility] Vision UNK - Ambulatory Encounter Alice Obandolory [facility] UNK - Ambulatory Encounter Janice Villalpando [facility] 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 UNK - Ambulatory Encounter Rinal Herbert [...] - Ambulatory Encounter Rinal Herbert Aydee Escobedo [facility] Adult Medicine UNK - Ambulatory Encounter Beth Jc [facility] Adult Medicine UNK - Ambulatory Encounter Ramiro Friend'Isidro Mitchellhemi Jc [facility] Adult Medicine UNK - Ambulatory Encounter Ramiro Friend'Isidro [facility] Adult Medicine UNK - Ambulatory Encounter Ramiro [facility]ro [facility] UNK - Ambulatory Encounter Ramiro Friend'Isidro Friend'Isidro [facility] Adult Medicine UNK - Ambulatory Encounter Ramiro Rizzo [facility] Adult Medicine UNK - Ambulatory Encounter Ramiro Friend'Isidro Friend'Isidro [facility] Adult Medicine UNK - Ambulatory Encounter Ramiro Friend'Isidro Sharma [facility] Adult Medicine Immunization updatePreventive health careColorectal screeningProstate Cancer, Screening - Ambulatory Encounter Ramiro Guerra [facility] Adult Medicine UNK - Ambulatory Encounter Ramiro Friend'Isidro [facility] UNK - Ambulatory Encounter Ramiro Rizzo [facility] Adult Medicine UNK - Ambulatory Encounter Ramiro Friend'Isidro [facility] Adult Medicine UNK - Ambulatory Encounter Ramiro Friend'Isidro [facility] Adult Medicine UNK - Ambulatory Encounter Fax Status [facility] UNK - Ambulatory Encounter Fax Status [facility] UNK - Ambulatory Encounter Fax Status [facility] UNK - Ambulatory Encounter Ramiro Rizzo [facility] Adult Medicine UNK - Ambulatory Encounter Ramiro Friend'Isidro Friend'Isidro Ayers Freemanedmond Livingston [facility] Adult Medicine BMI 32.0-32.9Candidal balanitisBMI 29.0-29.9Preventive health carePeripheral vascular insufficiencyColorectal screeningProstate Cancer, Screening - Ambulatory Encounter Ramiro Friend'Isidro Friend'Isidro [facility] Adult Medicine UNK - Ambulatory Encounter Ramiro Friend'Isidro Friend'Isidro [facility] Adult Medicine UNK - Ambulatory Encounter Lacey Hall [facility] Dental UNK - Ambulatory Encounter Ramiro Friend'Isidro Hare O'Isidro [place] [facility] Contact Center UNK - Ambulatory Encounter Ramiro Rizzo [facility] Adult Medicine UNK - Ambulatory Encounter Ramiro Friend'Isidro Friend'Isidro Arellano [facility] Adult Medicine BronchitisCandidal balanitisImmunization update - Ambulatory Encounter Mag Son [facility] Adult Medicine UNK - Ambulatory Encounter Ramiro Friend'Isidro Guerra [facility] Adult Medicine UNK - Ambulatory Encounter Ramiro Friend'Isidro Friend'Isidro [facility] Adult Medicine UNK - Ambulatory Encounter Ramiro Friend'Isidro [facility]idro [facility] UNK - Ambulatory Encounter Ramiro Friend'Isidro Friend'Isidro [facility] Adult Medicine UNK - Ambulatory Encounter Ramiro Friend'Isidro Friend'Isidro Steve Archuleta [facility] Adult Medicine BMI 32.0-32.9Bronchitis - Ambulatory Encounter Ramiro Friend'Isidro Hare O'Isidro LM Adult Medicine UNK - Ambulatory Encounter Ramiro Friend'Isidro Friend'Isidro LM Adult Medicine UNK - Ambulatory Encounter Ramiro Friend'Isidro Hare O'Isidro Son [facility] Adult Medicine Helicobacter pylori gastrointestinal tract infectionVaccination Against Influenza - Ambulatory Encounter Florencio Givens [facility] Adult Medicine UNK - Ambulatory Encounter Anna Connell [facility] Adult Medicine UNK - Ambulatory Encounter Anna Connell [employer] [facility] Adult Medicine UNK - Ambulatory Encounter Ramiro Friend'Isidro Hare O'Isidro [employer]ic [facility] Adult Medicine UNK - Ambulatory Encounter Av Tinajero [facility] Adult Medicine UNK - Ambulatory Encounter Ramiro Friend'Isidro Friend'Isidro [facility] Adult Medicine UNK - Ambulatory Encounter Ramiro Friend'Isidro Arellano [facility] Adult Medicine UNK - Ambulatory Encounter Ramiro Friend'Isidro Hare O'Isidro [employer]ic [facility] Adult Medicine UNK - Ambulatory Encounter Ramiro Friend'Isidro Friend'Isidro LM Adult Medicine UNK - Ambulatory Encounter Ramiro Friend'Isidro Friend'Isidro [facility] Adult Medicine UNK - Ambulatory Encounter Ramiro Friend'Isidro Friend'Isidro Loveon Eileen [facility] Adult Medicine Abdominal pain, left upper quadrant [...] Medicine UNK - Ambulatory Encounter Ramiro Hrae O'Isidro Hare O'Is[facility]ro [facility] Adult Medicine UNK [...] Medicine UNK - Ambulatory Encounter Ramiro Rizzo [facility] Adult Medicine UNK - Ambulatory Encounter Ramiro Rizzo Zachary Arellano [facility] Adult Medicine OverweightHypertensionDiabetes mellitus, type IIAbdominal pain, left upper quadrantHx of syncopeErectile dysfunctionDiabetic peripheral neuropathy - [facility] Encounter Av Tinajero [facility] Adult Medicine UNK - Ambulatory Encounter Av Tinajero [facility] Adult Medicine UNK VITAL SIGNS No Information [...] 1.005-1.030 blood glucose, random 144 mg/dL Co [facility] blood glucose, random 198 mg/dL [facility] hemoglobin A1C, blood, as % of [...] 3.4-10.8 blood glucose, random 120 mg/dL Zachary Arellano blood glucose, random 200 mg/dL Zachary Arellano Quantiferon Gold TB blood test for tuberculosis [...] MEDICATION USE Medication Instructions Dates Provider Comments GLUCOCARD SHINE TEST IN VITRO STRIP Use glucometer with test strips to check blood glucose as directed by provider Ramiro Otto GLUCOCARD SHINE DEVICE Use glucometer with test strips to check blood glucose as directed by provider Ramiro Otto AMOXICILLIN-POT CLAVULANATE 875-125 MG ORAL TABLET 1 tab By Mouth Twice a Day Paula Norman BACTRIM DS 800-160 MG ORAL TABLET 1 tab by mouth twice a day Paula Norman BUMEX 1 MG ORAL TABLET 1 tab By Mouth Every Day Paula Norman METOPROLOL SUCCINATE ER 25 MG ORAL TABLET EXTENDED RELEASE 24 HOUR 1 tab by mouth daily Paual Castropard TRADJENTA 5 MG ORAL TABLET take 1 [...] every day As Needed - Jennifersatnam Malin BELLAFED DM 30-2-10 MG/5ML ORAL SYRUP 10 mL [...] Rizzo SOCIAL HISTORY Date Observation Value Provider assessment of health literacy ([facility] 2014 Standards, 3C10) Adequate Ramiro Otto " Reason for the consultation - consult note Free glucometer per referral by Dr. Keon Otto " The member(s) participating in the consultation Patient Ramiro Otto Exercise Program Referral T Co Юлия Bennett " Weight Management Counseling Provided T Co Юлия Morachel " Nutrition intervention T Co Юлия Mosandraey " drug use, illicit Never Co Юлия [...] Co Юлия Moxey Exercise Program Referral T Jessica Herbert " [...] [facility] 2014 Standards, 3C10) Adequate Steve Archuleta " passive cigarette smoke exposure Yes Steve Archuleta " smoking status current every [...] Never Steve Archuleta " alcohol use Never Nadaniela Archuleta " social history reviewed E&M reviewed today Steve Archuleta " is there any chance that you could be ? No Steve Archuleta " assessment of health literacy ([facility] 2014 Standards, 3C10) Adequate Steve [...] [facility] Standards, 3C10) Adequate Lormarilee Mejia " [...] Never Aamir Manning " Occupation #1 [employer] Aamir Manning " sexual orientation Heterosexual Aamir Manning " assessment of health literacy [facility] Standards, 3C10) Adequate Aamir Manning [...] " social history reviewed E&M reviewed today [place] Anisa " passive cigarette smoke exposure No [place] Anisa " smoking status current every day smoker [place] Anisa " Exercise Program Referral T [place] Anisa " Weight Management Counseling Provided T Savanna Anisa " Nutrition intervention T [place] Anisa Exercise Program Referral T Rinjay Herbert " Weight Management Counseling Provided T Rinal Herbert " Nutrition intervention T Rinal Herbert " drug use, illicit Never Channrohan [...] Nadaniela Archuleta " drug use, illicit Never Nadaniela Archuleta " social history reviewed E&M reviewed [...] to time, place, and person Ramiro Hare Matthias " assessment of mood and affect E&M Appropriate affect without agitation Ramiro Rizzo " Generalized Anxiety Disorder Questionnaire - Question 2 0 Zachary Arellano " Generalized Anxiety Disorder Questionnaire - Question 1 0 Zachary Arellano assessment of judgment and insight E&M intact Ramiro Hare O'Isidro " mental status examination: orientation E&M oriented to time, place, and person Ramiro Hare Matthias " assessment of mood [...] affect without agitation Ramiro Payam O'Isidro " assessment of judgment and insight E&M intact Ramiro Payam O'Isidro " Generalized Anxiety Disorder Questionnaire - Question 2 0 Zachary Arellano " Generalized Anxiety Disorder Questionnaire - Question 1 0 Zachary Arellano assessment of judgment and insight E&M intact Ramiro Hare O'Isidro " assessment of mood and affect E&M no depression, anxiety, or agitation Ramiro Friend'Isidro " Generalized Anxiety Disorder [...] party ID Sliding Fee - Cat 1 [employer] insurance company [id number] [facility] [id number] [facility] [employer] insurance [employer] [id number] Sliding Fee - Cat 1 [employer] insurance [employer] [id number] Sliding Fee - Cat 1 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 [employer] Primary Health Care [employer] Other FAMILY PLANNING*TITLE V Medicaid [facility] [id number] Sliding Fee Scale 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 [employer] [id number] Family Planning/WHFPT Medicaid [id number] Primary Health Care [employer] Other [id number] ADVANCE DIRECTIVES Name Date DISCUSSED - NO [...] Est Level IV Nephrology - Adult - [facility] Ofc Vst, Est Level IV Prescription Assistance (Non-HIV) Free Glucometer- [facility] Ofc Vst, Est Level IV Nephrology - Adult - [facility] Ofc Vst, Est Level IV Ofc Vst, Est Level IV Ofc Vst, Est Level IV Ofc Vst, Est Level IV Ofc Vst, Est Level IV Vision Dental - Internal Nephrology - Adult - [facility] INFLUENZA VACCINE QUADRIVALENT 3 YRS PLUS IM Admin of Vaccine - Injection - 1 Est Patient Detailed - 18202 Nephrology - Adult - [facility] Est Patient Detailed - 40739 Ofc Vst, Est Level IV Glucose Stick Prescription Assistance (Non-HIV) Ofc Vst, Est Level IV Vision Diabetes Education Endocrinology - Adult - [facility] Est Patient Detailed - 67132 Est Patient Well Exam (40 - 64 Yrs) - 03558 Pneumovax Vaccine PPSV23 Admin of Vaccine - Injection - 1 Est Patient Detailed - 49848 Prevnar (PCV13) IM TDAP Admin of Vaccine - Injection - Each Add'l Admin of Vaccine - Injection - 1 Est Patient Detailed - 20820 Est Patient Exp Problem - 51239 Est Patient Exp Problem - 93482 Est Patient Exp Problem - 62452 Est Patient Problem Focus - 67803 Glucose Stick Est Patient Exp Problem - 56709 Glucose Stick Venipuncture Handling of specimen for transfer New Patient Comprehensive - 14687 HISTORY OF PROCEDURES Procedure Date Procedure Name Provider Procedure Notes Status Glucose Stick Jessica Herbert completed Glucose Stick Ramiro Rizzo completed Glucose Stick Ramiro Rizzo completed Venipuncture Ramiro Rizzo completed GOALS No Information Available HEALTH [facility]CERNS No Information Available
--- OUTSIDE RECORDS SUMMARY | 2019-10-07 23:06 | XMS REPORT ---
Author Author Admin, Harvey Organization Unknown Address Unknown Phone Unavailable PROBLEMS [...] Encounter Diagnosis - Ambulatory Encounter Ramiro Herbert [facility] UNK - Ambulatory Encounter Paula Norman [facility] [place] UNK - Ambulatory Encounter Stephen Soliz [facility] [place] [place] Medicine UNK - Ambulatory Encounter Stephen Soliz [facility] [place] Medicine UNK - Ambulatory Encounter Paula Norman [facility] [place] Medicine UNK - Ambulatory Encounter Paula Norman Co Юлия Bennett [facility] [place] Medicine Burn, 10-19% BSA, L great toeElevated LFTs - Ambulatory Encounter Jessica Herbert [facility] [place] [place] Medicine UNK - Ambulatory Encounter Jessica Leblanc [facility] [place] [place] Adult Medicine UNK - Ambulatory Encounter Steve Archuleta [facility] [place] Medicine UNK - Ambulatory Encounter Paula Castropard Paula Castropard [facility] [place] Adult Medicine UNK - Ambulatory Encounter Paula Canalesd Paula Castropard LM Adult Medicine UNK - Ambulatory Encounter Paula Canalesd Paula Canalesd Co Юлия Steinbergxjone [facility] [place] [place] Medicine Osteomyelitis, acute, L great toe - Ambulatory Encounter Paula Castropard Paula Castropard Kaylie Curtis MedAdherence, LM Adult Medicine UNK - Ambulatory Encounter Rachana Minor [facility] [place] DRUM CLEANER UNK - Ambulatory Encounter Paula Canalesd Paula Castropard LM Adult Medicine UNK - Ambulatory Encounter Paula Canalesd Paula Castropard LM Adult Medicine UNK - Ambulatory Encounter Paula Canalesd Paula Castropard [facility] [place] [place] Adult Medicine UNK - Ambulatory Encounter Paula Castropard Paula Castropard [facility] [place] Medicine UNK - Ambulatory Encounter Co Юлия Bennett [facility] [place] Medicine UNK - Ambulatory Encounter Co Юлия Bennett [facility] [place] Adult Medicine UNK - Ambulatory Encounter Paula Castropard Paula Castropard [employer] [facility] [place] Adult Medicine UNK - Ambulatory Encounter Paula Castropard Paula Castropard [facility] [place] Adult Medicine [...] Paula Emerson Lopez Herbert Co Юлия Bennett [facility] [place] [place] Adult Medicine UNK - Ambulatory Encounter Paula Norman Co Юлия Steinbergxjone [facility] [place] Adult Medicine UNK - Ambulatory Encounter Paula Norman LM Adult Medicine UNK - Ambulatory Encounter Paula Norman [facility] [place] [place] Medicine UNK - Ambulatory Encounter Paula Norman Radha [place] Юлия [facility] Adult Medicine Diabetes mellitus, type IIMedication, long-term useAllergic rhinitis, seasonalRash and other nonspecific skin eruptionBurn, 10-19% BSA, L great toe - Ambulatory Encounter Co Юлия Steinbergjone [facility] [place] [place] Medicine UNK - Ambulatory Encounter Paula Norman [facility]ton [facility] Rebecca Browning [place] UNK - Ambulatory Encounter Ellajay Keon [facility] [place] Medicine UNK - Ambulatory Encounter Paula Norman [facility] [place] [place] Adult Medicine UNK - Ambulatory Encounter Beth Jc [facility] [place] Medicine UNK - Ambulatory Encounter Bethene Norman [facility] [place] Adult Medicine UNK - Ambulatory Encounter Paula Norman [employer] [facility] [place] Adult Medicine UNK - Ambulatory Encounter Paula Norman [employer] [facility] [place] Adult Medicine UNK - Ambulatory Encounter Ellaal Herbert [facility] [place] Adult Medicine UNK - Ambulatory Encounter Ellaal Herbert Steve Archuleta [facility] [place] Adult Medicine UNK - Ambulatory Encounter Paula Canalesd [facility] [place] Adult Medicine UNK - Ambulatory Encounter Paula Norman [facility] [place] Adult Medicine UNK - Ambulatory Encounter Paula Norman John Mejia [facility] [place] Medicine Allergic rhinitis, seasonalRash and other nonspecific skin eruption - Ambulatory Encounter Paula Norman Sagrariodaniela Geremias Espinosa [facility] [place] [place] Adult Medicine UNK - Ambulatory Encounter Paula Norman [facility] [place] [place] Adult Medicine UNK - Ambulatory [facility]counter [facility] - Ambulatory Encounter Jessica Herbert [facility] Adult Medicine UNK - Ambulatory Encounter Anh Samayoa [facility] [place] [place] Adult Medicine UNK - Ambulatory Encounter Linda Contreras [facility] UNK - Ambulatory Encounter Steve Archuleta [facility] [place] [place] Adult Medicine UNK - [facility] Ambulatory Encounter Paula Norman [facility] [place] [place] Adult Medicine UNK - Ambulatory Encounter Paula Norman Cathy Archuleta [facility] [place] Adult Medicine UNK - Ambulatory Encounter Jessica Herbert [facility] [place] [place] Adult Medicine UNK - Ambulatory Encounter Angle Avila [facility] UNK - Ambulatory Encounter [place] [facility] [place] [place] Adult Medicine UNK - Ambulatory Encounter Anh Samayoa [facility] [place] Adult Medicine UNK - Ambulatory [facility] - Ambulatory Encounter Jose Armando Gonzalez [facility] [place] Adult Medicine UNK - Ambulatory Encounter Jennifer JacobsenLabette Healthduy [facility] [place] Adult Medicine UNK - Ambulatory Encounter Aamir Manning [facility] [place] [place] Adult Medicine UNK - Ambulatory Encounter Fax Status [facility] UNK - Ambulatory Encounter Fax Status [facility] UNK - Ambulatory Encounter Jennifer Manning [facility] [place] [place] Adult Medicine UNK - Ambulatory Encounter Fax Status [facility] UNK - Ambulatory Encounter Fax Status [facility] UNK - Ambulatory Encounter Fax Status [facility] UNK - Ambulatory Encounter Jennifer Mannnig [facility] [place] Medicine UNK - Ambulatory Encounter Jennifer Malin [facility] [place] Adult Medicine UNK - Ambulatory Encounter Jennifer Malin [facility] [place] Medicine UNK - Ambulatory Encounter Jennifer Strickland-Carlos Tejedao [facility] [place] Medicine OverweightBMI 31.0-31.9Tobacco useObesityMedication, long-term useLiver function abnormality - Ambulatory Encounter Lilo Amaro [facility] [place] Medicine UNK - Ambulatory Encounter Steve Archuleta [facility] Adult Medicine UNK - Ambulatory Encounter Ramiro Samayoa [facility] [place] Adult Medicine Microalbuminuria - Ambulatory Encounter Ramiro Rzizo [facility] Adult Medicine UNK - [facility] - Ambulatory Encounter Ramiro Garzais [facility] Adult Medicine HyperlipidemiaBMI 29.0- 29.9BMI 31.0-31.9 - Ambulatory Encounter Rinal Herbert [facility] Adult Medicine UNK - Ambulatory Encounter Ana Laura Escobedo [facility] Vision UNK - Ambulatory Encounter Alice Obandolory [facility] Services UNK - Ambulatory Encounter Janice Villalpando [facility] [place] [place] Shampoo Technician UNK - Ambulatory Encounter Rinal Herbert [place] [...] Ambulatory Encounter Rinal Herbert Aydee Escobedo [facility] [place] Adult Medicine UNK - Ambulatory Encounter Beth Jc [facility] Adult Medicine UNK - Ambulatory Encounter Ramiro Friend'Isidro Mitchellhemi Jc [facility] Adult Medicine UNK - Ambulatory Encounter Ramiro Friend'Isidro [facility] Adult Medicine UNK - Ambulatory Encounter [facility] UNK - Ambulatory Encounter Ramiro Friend'Isidro Friend'Isidro [facility] Adult Medicine UNK - Ambulatory Encounter Ramiro Rizzo [facility] Adult Medicine UNK - Ambulatory Encounter Ramiro Friend'Isidro Friend'Isidro [facility] Adult Medicine UNK - Ambulatory Encounter Ramiro Friend'Isidro Sharma [facility] Adult Medicine Immunization updatePreventive health careColorectal screeningProstate Cancer, Screening - Ambulatory Encounter Ramiro Guerra [facility] [place] Medicine UNK - Ambulatory Encounter Ramiro Friend'Isidro [facility] UNK - Ambulatory Encounter Ramiro Rizzo [facility] Adult Medicine UNK - Ambulatory Encounter Ramiro Friend'Isidro [facility] Adult Medicine UNK - Ambulatory Encounter Ramiro Friend'Isidro [facility] Adult Medicine UNK - Ambulatory Encounter Fax Status [facility] Services UNK - Ambulatory Encounter Fax Status [facility] Services UNK - Ambulatory Encounter Fax Status [facility] UNK - Ambulatory Encounter Ramiro Rizzo [facility] Adult Medicine UNK - Ambulatory Encounter Ramiro Friend'Isidro Friend'Isidro Ayers Freemanedmond Livingston [facility] Adult Medicine BMI 32.0-32.9Candidal balanitisBMI 29.0-29.9Preventive health carePeripheral vascular insufficiencyColorectal screeningProstate Cancer, Screening - Ambulatory Encounter Ramiro Friend'Isidro Friend'Isidro [facility] Adult Medicine UNK - Ambulatory Encounter Ramiro Friend'Isidro Friend'Isidro [facility] Adult Medicine UNK - Ambulatory Encounter Lacey Hall [facility] Dental UNK - Ambulatory Encounter Ramiro Friend'Isidro Hare O'Isidro [facility] UNK - Ambulatory Encounter Ramiro Rizzo [facility] Adult Medicine UNK - Ambulatory Encounter Ramiro Friend'Isidro Friend'Isidro Arellano [facility] Adult Medicine BronchitisCandidal balanitisImmunization update - Ambulatory Encounter Mag Son [facility] Adult Medicine UNK - Ambulatory Encounter Ramiro Friend'Isidro Guerra [facility] Adult Medicine UNK - Ambulatory Encounter Ramiro Friend'Isidro Friend'Isidro [facility] Adult Medicine UNK - Ambulatory Encounter Ramiro Friend'Isidro [facility] UNK - Ambulatory Encounter Ramiro Friend'Isidro Friend'Isidro [facility] [place] Medicine UNK - Ambulatory Encounter Ramiro Friend'Isidro Friend'Isidro Steve Archuleta [facility] [place] Medicine BMI 32.0-32.9Bronchitis - Ambulatory Encounter Ramiro Friend'Isidro Hare O'Isidro LM Adult Medicine UNK - Ambulatory Encounter Ramiro Friend'Isidro Friend'Isidro LM Adult Medicine UNK - Ambulatory Encounter Ramiro Friend'Isidro Hare O'Isidro Son [facility] Adult Medicine Helicobacter pylori gastrointestinal tract infectionVaccination Against Influenza - Ambulatory Encounter Florencio Givens [facility] Adult Medicine UNK - Ambulatory Encounter Anna Connell [facility] Adult Medicine UNK - Ambulatory Encounter Anna Connell [employer] [facility] Adult Medicine UNK - Ambulatory Encounter Ramiro Friend'Isidro Hare O'Isidro [employer] [facility] Adult Medicine UNK - Ambulatory Encounter Av Tinajero [facility] Adult Medicine UNK - Ambulatory Encounter Ramiro Friend'Isidro Friend'Isidro [facility] Adult Medicine UNK - Ambulatory Encounter Ramiro Friend'Isidro Arellano [facility] Adult Medicine UNK - Ambulatory Encounter Ramiro Friend'Isidro Hare O'Isidro [employer]ic [facility] Adult Medicine UNK - Ambulatory Encounter Ramiro Friend'Isidro Friend'Isidro LM Adult Medicine UNK - Ambulatory Encounter Ramiro Friend'Isidro Friend'Isidro [facility] [place] Medicine UNK - Ambulatory Encounter Ramiro Friend'Isidro Friend'Isidro Loveon Eileen [facility] [place] Medicine Abdominal pain, left upper quadrant - Ambulatory Encounter Ramiro Friend'Isidro Hare [facility] Adult Medicine UNK - Ambulatory Encounter Ramiro Hare O'Isidro Hare O'Isidro [facility] Adult Medicine UNK - Ambulatory Encounter Av Tinajero [facility] Adult Medicine UNK - Ambulatory Encounter Ramiro Hare O'Isidro Hare O'Is[facility]ro [facility] Adult Medicine UNK - Ambulatory Encounter Ramiro Hare O'Isidro Hrae O'Isidro Zachary Eileen [facility] Adult Medicine UNK [...] UNK - Ambulatory Encounter Ramiro Rizzo [facility] [place] Medicine UNK - Ambulatory Encounter Ramiro Rizzo Zachary Arellano [facility] Adult Medicine OverweightHypertensionDiabetes mellitus, type IIAbdominal pain, left upper quadrantHx of syncopeErectile dysfunctionDiabetic peripheral neuropathy - [facility] - [facility] Encounter Av Tinajero [facility] [place] Medicine UNK - Ambulatory Encounter Av Tinajero [facility] Adult Medicine [...] 1.005-1.030 blood glucose, random 144 mg/dL Co [facility] blood glucose, random 198 mg/dL [facility] hemoglobin A1C, blood, as % of [...] LinkLogic 3.4-10.8 blood glucose, random 120 mg/dL Zcahary Arellano blood glucose, random 200 mg/dL Zachary [...] HOUR 1 tab by mouth daily Paula Castropard TRADJENTA 5 MG ORAL TABLET take [...] Observation Value Provider assessment of health literacy ([facility] 2014 Standards, 3C10) Adequate Ramiro Otto " [...] Юлия Moxey " assessment of health literacy ([facility] 2014 Standards, 3C10) Adequate Co Юлия [...] Steve Archuleta " assessment of health literacy ([facility] 2014 Standards, 3C10) Adequate Steve Archuleta " passive cigarette smoke exposure Yes Steve Archuleta " smoking status current every day smoker Steve Archuleta drug use, illicit Never Co Юлия Moxey " alcohol use Never Co Юлия Moxey " social history reviewed E&M reviewed today Co Юлия Moxey " sexual orientation Heterosexual Co Юлия Moxey " assessment of health literacy ([facility] 2014 Standards, 3C10) Adequate Co Юлия [...] Юлия Moxey " assessment of health literacy ([facility] 2014 Standards, 3C10) Adequate Co Юлия [...] Юлия Moxey " assessment of health literacy ([facility] 2014 Standards, 3C10) Adequate Co Юлия [...] Steve Archuleta " assessment of health literacy ([facility] 2014 Standards, 3C10) Adequate Steve Archuleta [...] John Roberto " assessment of health literacy ([facility] 2014 Standards, 3C10) Adequate Lormarilee Mejia " [...] Cathy Quintanilla " assessment of health literacy ([facility] 2014 Standards, 3C10) Adequate Cathy Quintanilla " passive cigarette smoke exposure No Cathy Quintanilla " smoking status current every day smoker Cathy Quintanilla time of call 10/25/2018 9:14 AM Angle Avila social history reviewed E&M reviewed today Jennifer Malin " drug use, illicit Never Aamir Manning " alcohol use Never Aamir Manning " Occupation #1 [employer] Aamir Manning " sexual orientation Heterosexual Aamir Manning " assessment of health literacy [facility] Standards, 3C10) Adequate Aamir [...] " social history reviewed E&M reviewed today [place] Anisa " passive cigarette smoke exposure No [place] Anisa " smoking status current every day smoker [place] Anisa " Exercise Program Referral T [place] Anisa " Weight Management Counseling Provided T [place] Anisa " Nutrition intervention T [place] Anisa Exercise Program Referral T Rinjay Herbert [...] Counseling Provided Chelsey Rizzo " Nutrition intervention Chelesy Rizzo " smoking, advice to quit Yes [...] Eileen " drug use, illicit Never Zachary Ieleen " smoking status never smoker Zachary Eileen [...] republican ID Sliding Fee - Cat 1 [employer] insurance company [id number] [facility] [id number] [facility] [employer] insurance [employer] [id number] Sliding Fee - Cat 1 [employer] insurance [employer] [id number] Sliding Fee - Cat 1 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 [employer] Primary Health Care [employer] Other FAMILY PLANNING*TITLE V Medicaid [facility] [id number] Sliding Fee Scale 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 [employer] [id number] Family Planning/WHFPT Medicaid [id number] Primary Health Care [employer] Other [id number] ADVANCE DIRECTIVES Name Date DISCUSSED - NO [...] Est Level IV Nephrology - Adult - [facility] Ofc Vst, Est Level IV Prescription Assistance (Non-HIV) Free Glucometer- [facility] Ofc Vst, Est Level IV Nephrology - Adult - [facility] Ofc Vst, Est Level IV Ofc Vst, Est Level IV Ofc Vst, Est Level IV Ofc Vst, Est Level IV Ofc Vst, Est Level IV Vision Dental - Internal Nephrology - Adult - [facility] INFLUENZA VACCINE QUADRIVALENT 3 YRS PLUS IM Admin of Vaccine - Injection - 1 Est Patient Detailed - 51793 Nephrology - Adult - [facility] [place] Est Patient Detailed - 64460 Ofc Vst, Est Level IV Glucose Stick Prescription Assistance (Non-HIV) Ofc Vst, Est Level IV Vision Diabetes Education Endocrinology - Adult - [facility] [place] Est Patient Detailed - 93308 Est Patient Well Exam (40 - 64 Yrs) - 97778 Pneumovax Vaccine [id number] Admin of Vaccine - Injection - 1 Est Patient Detailed - 84278 Prevnar (PCV13) IM TDAP Admin of Vaccine - Injection - Each Add'l Admin of Vaccine - Injection - 1 Est Patient Detailed - 12293 Est Patient Exp Problem - 12330 Est Patient Exp Problem - 77015 Est Patient Exp Problem - 95781 Est Patient Problem Focus - 56977 Glucose Stick Est Patient Exp Problem - 35561 Glucose Stick Venipuncture Handling of specimen for transfer New Patient Comprehensive - 49635 HISTORY OF PROCEDURES Procedure Date Procedure Name Provider Procedure Notes Status Glucose Stick Jessica Herbert completed Glucose Stick Ramiro Rizzo completed Glucose Stick Ramiro Rizzo completed Venipuncture Ramiro Rizzo completed GOALS No Information Available [facility] No Information Available
--- OUTSIDE RECORDS SUMMARY | 2019-10-07 23:07 | XMS REPORT ---
Author Author Admin, [place] Organization Unknown Address Unknown Phone Unavailable [...] Castropard Allergic rhinitis, seasonal completed - Paula aCstropard Liver function abnormality active Jennifer Malin Medication, long-term use active Paula Norman Obesity active Jennifer Mailn Tobacco use active Jennifer Malin Microalbuminuria active [...] Encounter Diagnosis - Ambulatory Encounter Ramiro Herbert [facility] UNK - Ambulatory Encounter Paula Norman LinkLogic [facility] Adult Medicine UNK - Ambulatory Encounter Stephen Soliz [facility] Adult Medicine UNK - Ambulatory Encounter Stephen Soliz [facility] Adult Medicine UNK - Ambulatory Encounter Paula Norman [facility] Adult Medicine UNK - Ambulatory Encounter Paula Norman Co Юлия Bennett [facility] Adult Medicine Burn, 10-19% BSA, L great toeElevated LFTs - Ambulatory Encounter Jessica Herbert [facility] Adult Medicine UNK - Ambulatory Encounter Jessica Leblanc [facility] Adult Medicine UNK - Ambulatory Encounter Steve Archuleta [facility] Adult Medicine UNK - Ambulatory Encounter Paula Castropard Paula Castropard [facility] Adult Medicine UNK - Ambulatory Encounter Paula Canalesd Paula Castropard LM Adult Medicine UNK - Ambulatory Encounter Paula Canalesd Paula Canalesd Co Юлия Steinbergxjone [facility] Adult Medicine Osteomyelitis, acute, L great toe - Ambulatory Encounter Paula Castropard Paula Castropard Kaylie Curtis MedAdherence, LM Adult Medicine UNK - Ambulatory Encounter Rachana Minor [facility] PRECISION LENS GRINDER UNK - Ambulatory Encounter Paula Canalesd Paula Castropard LM Adult Medicine UNK - Ambulatory Encounter Paula Canalesd Paula Castropard LM Adult Medicine UNK - Ambulatory Encounter Paula Canalesd Paula Castropard [facility] Adult Medicine UNK - Ambulatory Encounter Paula Castropard Paula Castropard [facility] Adult Medicine UNK - Ambulatory Encounter Co Юлия Bennett [facility] Adult Medicine UNK - Ambulatory Encounter Co Юлия Bennett [facility] Adult Medicine UNK - Ambulatory Encounter Paula Castropard Paula Castropard LinkLogic [facility] Adult Medicine UNK - Ambulatory Encounter Paula Castropard Paula Castropard [facility] Adult Medicine CKD stage 4 (gfr 15-29) [...] Paula Emerson Lopez Herbert Co Юлия Bennett [facility] Adult Medicine UNK - Ambulatory Encounter Paula Norman Co Юлия Steinbergxjone [facility] Adult Medicine UNK - Ambulatory Encounter Paula Norman LM Adult Medicine UNK - Ambulatory Encounter Paula Norman [facility] Adult Medicine UNK - Ambulatory Encounter Paula Norman Radha Livingston Co Юлия [facility] Adult Medicine Diabetes mellitus, type IIMedication, long-term useAllergic rhinitis, seasonalRash and other nonspecific skin eruptionBurn, 10-19% BSA, L great toe - Ambulatory Encounter Co Юлия Steinbergjone [facility] Adult Medicine UNK - Ambulatory Encounter Paula Norman [facility] Browning [facility] UNK - Ambulatory Encounter Ellajay Keon [facility] Adult Medicine UNK - Ambulatory Encounter Paula Norman [facility] Adult Medicine UNK - Ambulatory Encounter Beth Jc [facility] Adult Medicine UNK - Ambulatory Encounter Bethene Norman [facility] Adult Medicine UNK - Ambulatory Encounter Paula Norman LinkLogic [facility] Adult Medicine UNK - Ambulatory Encounter Paula Norman LinkLogic [facility] Adult Medicine UNK - Ambulatory Encounter Ellaal Herbert [facility] Adult Medicine UNK - Ambulatory Encounter Ellaal Herbert Steve Archuleta [facility] Adult Medicine UNK - Ambulatory Encounter Paula Canalesd [facility] Adult Medicine UNK - Ambulatory Encounter Paula Norman [facility] Adult Medicine UNK - Ambulatory Encounter Paula Norman John Mejia [facility] Adult Medicine Allergic rhinitis, seasonalRash and other nonspecific skin eruption - Ambulatory Encounter Paula Norman Sagraroidaniela Geremias Espinosa [facility] Adult Medicine UNK - Ambulatory Encounter Paula Norman LinkLogic [facility] Adult Medicine UNK - Ambulatory Encounter [facility] - Ambulatory Encounter Jessica Herbert [facility] Adult Medicine UNK - Ambulatory Encounter Anh Samayoa [facility] Adult Medicine UNK - Ambulatory Encounter Linda Contreras [facility] UNK - Ambulatory Encounter Steve Archuleta [facility] Adult Medicine UNK - [facility] - Ambulatory Encounter Paula Norman [facility] Adult Medicine UNK - Ambulatory Encounter Paula Norman Cathy Archuleta [facility] Adult Medicine UNK - Ambulatory Encounter Jessica Herbert [facility] Adult Medicine UNK - Ambulatory Encounter Angle Avila [facility] Public [facility] Services UNK - Ambulatory Encounter [place] [facility] Adult Medicine UNK - Ambulatory Encounter Anh Samayoa [facility] Adult Medicine UNK - Ambulatory Encounter [facility] Adult [facility] UNK - Ambulatory Encounter Jose Armando Gonzalez [facility] Adult Medicine UNK - Ambulatory Encounter [facility]Cit[facility] Center[facility] Adult Medicine UNK - Ambulatory Encounter Aamir Manning [facility] Adult Medicine UNK - Ambulatory Encounter Fax Status [facility] UNK - Ambulatory Encounter [facility] UNK - Ambulatory Encounter Jennifer Manning [facility] Adult Medicine UNK - Ambulatory Encounter Fax Status [facility] UNK - Ambulatory Encounter Fax Status [facility] UNK - Ambulatory Encounter Fax Status [facility] UNK - Ambulatory Encounter Jennifer Manning [facility] Adult Medicine UNK - Ambulatory Encounter Jennifer Malin [facility] Adult Medicine UNK - Ambulatory Encounter Jennifer Malin [facility] Adult Medicine UNK - Ambulatory Encounter Jennifer Strickland-Carlos Tejedao [facility] Adult Medicine OverweightBMI 31.0-31.9Tobacco useObesityMedication, long-term useLiver function abnormality - Ambulatory Encounter Lilo Amaro [facility] Adult Medicine UNK - Ambulatory Encounter Steve Archuleta [facility] Adult Medicine UNK - Ambulatory Encounter Ramiro Samayoa [facility] Adult Medicine Microalbuminuria - Ambulatory Encounter Ramiro Rizzo [facility] Adult Medicine UNK - [facility] - Ambulatory Encounter Ramiro Garzais [facility] Adult Medicine HyperlipidemiaBMI 29.0- 29.9BMI 31.0-31.9 - Ambulatory Encounter Rinal Herbert [facility] Adult Medicine UNK - Ambulatory Encounter Ana Laura Escobedo [facility] Vision UNK - Ambulatory Encounter Alice Obandolory [facility] UNK - Ambulatory Encounter aJnice Villalpando [facility] [employer] Supervisor UNK - Ambulatory Encounter Rinal Herbert [place] [...] - Ambulatory Encounter Rinal Herbert Aydee Escobedo [facility] Adult Medicine UNK - Ambulatory Encounter Beth Jc [facility] Adult Medicine UNK - Ambulatory Encounter Ramiro Friend'Isidro Mitchellhemi Jc [facility] Adult Medicine UNK - Ambulatory Encounter Ramiro Friend'Isidro [facility] Adult Medicine UNK - Ambulatory Encounter Ramiro [facility] UNK - Ambulatory Encounter Ramiro Friend'Isidro Friend'Isidro [facility] Adult Medicine UNK - Ambulatory Encounter Ramiro Rizzo [facility] Adult Medicine UNK - Ambulatory Encounter Ramiro Friend'Isidro Friend'Isidro [facility] Adult Medicine UNK - Ambulatory Encounter Ramiro Friend'Isidro [facility] Adult Medicine Immunization updatePreventive health careColorectal screeningProstate Cancer, Screening - Ambulatory Encounter Ramiro Guerra [facility] Adult Medicine UNK - Ambulatory Encounter Ramiro Friend'Isidro [facility] UNK - Ambulatory Encounter Ramiro Rizzo [facility] Adult Medicine UNK - Ambulatory Encounter Ramiro Friend'Isidro [facility] Adult Medicine UNK - Ambulatory Encounter Ramiro Friend'Isidro [facility] Adult Medicine UNK - Ambulatory Encounter Fax Status [facility] UNK - Ambulatory Encounter Fax Status [facility] UNK - Ambulatory Encounter Fax Status [facility] UNK - Ambulatory Encounter Ramiro Rizzo [facility] Adult Medicine UNK - Ambulatory Encounter Ramiro Friend'Isidro Friend'Isidro Ayers Freemanedmond Livingston [facility] Adult Medicine BMI 32.0-32.9Candidal balanitisBMI 29.0-29.9Preventive health carePeripheral vascular insufficiencyColorectal screeningProstate Cancer, Screening - Ambulatory Encounter Ramiro Friend'Isidro Friend'Isidro [facility] Adult Medicine UNK - Ambulatory Encounter Ramiro Friend'Isidro Friend'Isidro [facility] Adult Medicine UNK - Ambulatory Encounter Lacey Hall [facility] Dental UNK - Ambulatory Encounter Ramiro Friend'Isidro Hare O'Isidro [facility] UNK - Ambulatory Encounter Ramiro Rizoz [facility] Adult Medicine UNK - Ambulatory Encounter Ramiro Friend'Isidro Friend'Isidro Arellano [facility] Adult Medicine BronchitisCandidal balanitisImmunization update - Ambulatory Encounter Mag Son [facility] Adult Medicine UNK - Ambulatory Encounter Ramiro Friend'Isidro Guerra [facility] Adult Medicine UNK - Ambulatory Encounter Ramiro Friend'Isidro Friend'Isidro [facility] Adult Medicine UNK - Ambulatory Encounter Ramiro Friend'Isidro [facility]ro [facility] UNK - Ambulatory Encounter Ramiro Friend'Isidro Friend'Isidro [facility] Adult Medicine UNK - Ambulatory Encounter Ramiro Friend'Isidro Friend'Isidro Steve Archuleta [facility] Adult Medicine BMI 32.0-32.9Bronchitis - Ambulatory Encounter Ramiro Friend'Isidro Hare O'Isidro LM Adult Medicine UNK - Ambulatory Encounter Ramiro Friend'Isidro Friend'Isidro LM Adult Medicine UNK - Ambulatory Encounter Ramiro Friend'Isidro Hare O'Isidro Son [facility] Adult Medicine Helicobacter pylori gastrointestinal tract infectionVaccination Against Influenza - Ambulatory Encounter Florencio Givens [facility] Adult Medicine UNK - Ambulatory Encounter Anna Connell [facility] Adult Medicine UNK - Ambulatory Encounter Anna Connell LinkLogic [facility] Adult Medicine UNK - Ambulatory Encounter Ramiro Friend'Isidro Hare O'Isidro LinkLogic [facility] Adult Medicine UNK - Ambulatory Encounter Av Tinajero [facility] Adult Medicine UNK - Ambulatory Encounter Ramiro Friend'Isidro Friend'Isidro [facility] Adult Medicine UNK - Ambulatory Encounter Ramiro Friend'Isidro Arellano [facility] Adult Medicine UNK - Ambulatory Encounter Ramiro Friend'Isidro Hare O'Isidro LinkLogic [facility] Adult Medicine UNK - Ambulatory Encounter Ramiro Friend'Isidro Friend'Isidro LM Adult Medicine UNK - Ambulatory Encounter Ramiro Friend'Isidro Friend'Isidro [facility] Adult Medicine UNK - Ambulatory Encounter Ramiro Friend'Isidro Friend'Isidro Loveon Eileen [facility] Adult Medicine Abdominal pain, left upper quadrant [...] - Ambulatory Encounter Ramiro Hare O'Isidro Hare [facility]'Iisdro [facility] Adult Medicine UNK - Ambulatory Encounter [...] UNK - Ambulatory Encounter Ramiro Rizzo [facility] Adult Medicine UNK - Ambulatory Encounter Ramiro Rizzo Zachary Arellano [facility] Adult Medicine OverweightHypertensionDiabetes mellitus, type IIAbdominal pain, left upper quadrantHx of syncopeErectile dysfunctionDiabetic peripheral neuropathy - Ambulatory Encounter [facility] - Ambulatory Encounter Av Tinajero [facility] Adult Medicine UNK - Ambulatory Encounter Av Tinajero [facility] Adult Medicine UNK VITAL SIGNS No Information [...] 1.005-1.030 blood glucose, random 144 mg/dL Co [facility] blood glucose, random 198 mg/dL [facility] hemoglobin A1C, blood, as % of [...] inject 15 units sq Twice a Day Jesisca Herbert 3 month supply TRIAMCINOLONE ACETONIDE 0.1 [...] Observation Value Provider assessment of health literacy ([facility] 2014 Standards, 3C10) Adequate Ramiro Otto " [...] Юлия Moxey " assessment of health literacy ([facility] 2014 Standards, 3C10) Adequate Co Юлия [...] Steve Archuleta " assessment of health literacy ([facility] 2014 Standards, 3C10) Adequate Steve Archuleta " passive cigarette smoke exposure Yes Steve Archuleta " smoking status current every day smoker Steve Archuleta drug use, illicit Never Co Юлия Moxey " alcohol use Never Co Юлия Moxey " social history reviewed E&M reviewed today Co Юлия Moxey " sexual orientation Heterosexual Co Юлия Moxey " assessment of health literacy ([facility] 2014 Standards, 3C10) Adequate Co Юлия [...] Юлия Moxey " assessment of health literacy ([facility] 2014 Standards, 3C10) Adequate Co Юлия [...] Юлия Moxey " assessment of health literacy ([facility] 2014 Standards, 3C10) Adequate Co Юлия [...] Steve Archuleta " assessment of health literacy ([facility] 2014 Standards, 3C10) Adequate Steve Archuleta " passive cigarette smoke exposure No Steve Archuleta " smoking status current every day smoker Steve Archuleta smoking, advice to quit Yes Paula Castropard " cigarettes, number smoked per day 5-6 Paula Onrman " drug use, illicit Never Loraina Roberto " alcohol use Never Loraina Roberto " smoking status current every day smoker John Mejia " social history reviewed E&M reviewed today John Roberto " assessment of health literacy ([facility] 2014 Standards, 3C10) Adequate Lormarilee Mejia " [...] Cathy Quintanilla " assessment of health literacy ([facility] 2014 Standards, 3C10) Adequate Cathy Quintanilla " passive cigarette smoke exposure No Cathy Quintanilla " smoking status current every day smoker Cathy Quintanilla time of call 10/25/2018 9:14 AM Angle Avila social history reviewed E&M reviewed today Jennifer Malin " drug use, illicit Never Aamir Manning " alcohol use Never Aamir Manning " Occupation #1 [employer] Aamir Manning " sexual orientation Heterosexual Aamir Manning " assessment of health literacy ([facility] 2014 Standards, 3C10) Adequate Aamir [...] " social history reviewed E&M reviewed today [place] Anisa " passive cigarette smoke exposure No [place] Anisa " smoking status current every day smoker [place] Anisa " Exercise Program Referral T [place] Anisa " Weight Management Counseling Provided T [place] Anisa " Nutrition intervention T [place] Anisa Exercise Program Referral T Rinjay Herbert [...] Chelsey Rizzo " Weight Management Counseling Provided Ches[place] iRzzo " Nutrition intervention Chelsey Rizzo " passive [...] " passive cigarette smoke exposure No Zachary Eilene " smoking status never smoker Zachary Eileen [...] affect E&M no depression, anxiety, or agitation Jennifre Malin " Generalized Anxiety Disorder Questionnaire - [...] of judgment and insight E&M intact Ramiro Haer O'Isidro " assessment of mood and affect [...] libertarian ID Sliding Fee - Cat 1 [employer] company [id number] [facility] [id number] [facility] [employer] insurance [employer] [id number] Sliding Fee - Cat 1 [employer] [id number] Sliding Fee - Cat 1 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 [employer] Primary Health [facility] Siva Other FAMILY PLANNING*TITLE V Medicaid [facility] [id number] Sliding Fee Scale 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 [employer] [id number] Family Planning/WHFPT Medicaid [id number] Primary Health Care [employer]iva Other [id number] ADVANCE DIRECTIVES Name Date DISCUSSED - NO [...] Est Level IV Nephrology - Adult - [facility] Ofc Vst, Est Level IV Prescription Assistance (Non-HIV) Free Glucometer- [facility] Ofc Vst, Est Level IV Nephrology - Adult - [facility] Ofc Vst, Est Level IV Ofc Vst, Est Level IV Ofc Vst, Est Level IV Ofc Vst, Est Level IV Ofc Vst, Est Level IV Vision Dental - Internal Nephrology - Adult - [facility] INFLUENZA VACCINE QUADRIVALENT 3 YRS PLUS IM Admin of Vaccine - Injection - 1 Est Patient Detailed - 86350 Nephrology - Adult - [facility] Est Patient Detailed - 57285 Ofc Vst, Est Level IV Glucose Stick Prescription Assistance (Non-HIV) Ofc Vst, Est Level IV Vision Diabetes Education Endocrinology - Adult - [facility] Est Patient Detailed - 49960 Est Patient Well Exam (40 - 64 Yrs) - 40135 Pneumovax Vaccine PPSV23 Admin of Vaccine - Injection - 1 Est Patient Detailed - 65093 Prevnar (PCV13) IM TDAP Admin of Vaccine - Injection - Each Add'l Admin of Vaccine - Injection - 1 Est Patient Detailed - 47256 Est Patient Exp Problem - 67050 Est Patient Exp Problem - 38877 Est Patient Exp Problem - 89474 Est Patient Problem Focus - 99414 Glucose Stick Est Patient Exp Problem - 15476 Glucose Stick Venipuncture Handling of specimen for transfer New Patient Comprehensive - 85016 HISTORY OF PROCEDURES Procedure Date Procedure Name Provider Procedure Notes Status Glucose Stick Jessica Herbert completed Glucose Stick Ramiro Rizzo completed Glucose Stick Ramiro Rizzo completed Venipuncture Ramiro Rizzo completed GOALS No Information Available [facility] No Information Available
--- OUTSIDE RECORDS SUMMARY | 2019-10-07 23:08 | XMS REPORT ---
Author Author Admin, [place] Organization Unknown Address Unknown Phone Unavailable PROBLEMS [...] Rizzo Diabetes mellitus, type II active Paula Norman Hypertension active Ramiro Rizzo Overweight completed - Jennifer Malin ENCOUNTERS Date Type Provider Location Encounter Diagnosis - Ambulatory Encounter Juan Luis Bennett [facility] UNK - Ambulatory Encounter Morlin Soliz [facility] UNK - Ambulatory Encounter Morlin Soliz [facility] UNK - Ambulatory Encounter Morlin Soliz [facility] UNK - Ambulatory Encounter Ramiro Herbert [facility] UNK - Ambulatory Encounter Paula Castropard Paula Castropard [facility] UNK - Ambulatory Encounter Morlin Soliz [facility] UNK - Ambulatory Encounter Morlin Soliz [facility] UNK - Ambulatory Encounter Paula Castroelisa Norman [facility] UNK - Ambulatory Encounter Paula Castropard Paula Castroelisa Bennett [facility] Burn, 10-19% BSA, L great toeElevated LFTs - Ambulatory Encounter Jessica Herbert [facility] UNK - Ambulatory Encounter Jessica Leblanc [facility] Adult Medicine UNK - Ambulatory Encounter Steve Archuleta [facility] Adult Medicine UNK - Ambulatory Encounter Paula Canalesd Paula Castropard LM Adult Medicine UNK - Ambulatory Encounter Paula Canalesd Paula Castropard LM Adult Medicine UNK - Ambulatory Encounter Paula Norman Co Юлия Bennett [facility] Adult Medicine Osteomyelitis, acute, L great toe - Ambulatory Encounter Paula Castropard Paula Castroelisa Acevedo [facility], [facility] Adult Medicine UNK - Ambulatory Encounter Rachana Beltre [facility] MANAGER FAMILY UNK - Ambulatory Encounter Paula Castropard Paula Castropard [facility] Adult Medicine UNK - Ambulatory Encounter Paula Canalesd Paula Castropard [facility] Adult Medicine UNK - Ambulatory Encounter Paula Castropard Paula Castropard [facility] Adult Medicine UNK - Ambulatory Encounter Paula Castropard [facility] Adult Medicine UNK - Ambulatory Encounter Co Юлия Bennett [facility] Adult Medicine UNK - Ambulatory Encounter Co Юлия Bennett [facility] Adult Medicine UNK - Ambulatory Encounter Paula Canalesd Paula Castropard [facility] LM Adult Medicine UNK - Ambulatory Encounter Paula Castropard Paula Castropard LM Adult Medicine CKD stage 4 (gfr 15-29) - Ambulatory Encounter Paula Canalesd Paula Castropard [facility] LM Adult Medicine UNK - Ambulatory Encounter Paula Castropard Paula Castropard [facility] Adult Medicine Asymptomatic microscopic hematuria - Ambulatory Encounter Paula Norman [facility] UNK - Ambulatory Encounter Paula Norman [facility] UNK - Ambulatory Encounter Paula Norman [facility] UNK - Ambulatory Encounter Paula Norman Jessica Herbert Co Юлия Steinbergxjone C Adult Medicine UNK - Ambulatory Encounter Paula Norman Co Юлия Steinbergxjone [facility] Adult Medicine UNK - Ambulatory Encounter Paula Norman [facility] Adult [facility] UNK - Ambulatory Encounter Paula Norman [facility] Adult [facility] UNK - Ambulatory Encounter Paula Norman Radha Livingston Co Юлия Steinbergxjone [facility] Adult Medicine Diabetes mellitus, type IIMedication, long-term useAllergic rhinitis, seasonalRash and other nonspecific skin eruptionBurn, 10-19% BSA, L great toe - Ambulatory Encounter Co Юлия Bennett [facility] Adult Medicine UNK - Ambulatory Encounter Paula Norman [facility] Rebecca Browning [place] UNK - Ambulatory Encounter Jessica Herbert [facility] Adult Medicine UNK - Ambulatory Encounter Paula Norman [facility] UNK - Ambulatory Encounter Bethene Greene [facility] UNK - Ambulatory Encounter Beth Jc Paula Norman [facility] Adult Medicine UNK - Ambulatory Encounter Paula Norman [facility] LM Adult Medicine UNK - Ambulatory Encounter Paula Norman [facility] LM Adult Medicine UNK - Ambulatory Encounter Jessica Herbert [facility] Adult Medicine UNK - Ambulatory Encounter Jessica Archuleta [facility] Adult Medicine UNK - Ambulatory Encounter Paula Norman [facility] Adult Medicine UNK - Ambulatory Encounter Paula Norman [facility] Adult Medicine UNK - Ambulatory Encounter Paula Norman John Mejia [facility] Adult Medicine Allergic rhinitis, seasonalRash and other nonspecific skin eruption - Ambulatory Encounter Paula Norman Steve Espinosa [facility] Adult Medicine UNK - Ambulatory Encounter Paula Norman LinkLogic [facility] Adult Medicine UNK - Ambulatory Encounter Paula Norman LinkLogic [facility] Adult Medicine UNK - Ambulatory Encounter Jessica Herbert LinkLogic [facility] Adult Medicine UNK - Ambulatory Encounter Anh Samayoa [facility] Adult Medicine UNK - Ambulatory Encounter Linda Contreras [facility] UNK - Ambulatory Encounter Steve Archuleta [facility] Adult Medicine UNK - [facility] - Ambulatory Encounter Paula Norman [facility] Adult Medicine UNK - Ambulatory Encounter Paula Norman Cathy Archuleta [facility] Adult Medicine UNK - Ambulatory Encounter Jessica Herbert [facility] Adult Medicine UNK - Ambulatory Encounter Angle Avila [facility] Public [facility] UNK - Ambulatory Encounter [place] LM Adult Medicine UNK - Ambulatory Encounter Anh Samayoa [facility] Adult [facility] UNK - Ambulatory Encounter Ramiro Rizzo [facility] LM Adult Medicine UNK - Ambulatory Encounter Jose Armando Gonzalez [facility] Adult Medicine UNK - Ambulatory Encounter Jennifer Malni [facility] LM Adult Medicine UNK - Ambulatory Encounter Aamir Tejedao LM Adult Medicine UNK - Ambulatory En[facility] - Ambulatory Encounter Fax Status [facility] Services UNK - Ambulatory Encounter Jennifer Manning [facility] Adult Medicine UNK - Ambulatory Encounter [facility] - Ambulatory Encounter F[facility] - Ambulatory Encounter Fax [facility] - Ambulatory Encounter Jennifer Manning [facility] Adult Medicine UNK - Ambulatory Encounter Jennifer Malin [facility] Adult [facility] UNK - Ambulatory Encounter Jennifer Malin LM Adult Medicine UNK - Ambulatory Encounter Jennifer Strickland-Carlos Bloomando Manning LM Adult Medicine OverweightBMI 31.0-31.9Tobacco useObesityMedication, long-term useLiver function abnormality - Ambulatory Encounter Lilo Amaro LM Adult Medicine UNK - Ambulatory Encounter Steve Archuleta LM Adult Medicine UNK - Ambulatory Encounter Ramiro Kamara Yao [facility] Adult Medicine Microalbuminuria - Ambulatory Encounter Ramiro Rizzo [facility] Adult Medicine UNK - Ambulatory Encounter Ramiro Friend'Isidro Friend'Isidro [facility] Adult Medicine UNK - Ambulatory Encounter Ramiro Friend'Isidro Hare O'Isidro Zachary Eileen [facility] Adult Medicine HyperlipidemiaBMI 29.0- 29.9BMI 31.0-31.9 - Ambulatory Encounter Rinal Herbert [facility] LM Adult Medicine UNK - Ambulatory Encounter Ana Laura Escobedo [facility] Vision UNK - Ambulatory Encounter Alice Malagon [facility] UNK - Ambulatory Encounter Janice Villalpando [facility] Software Integration Developer UNK - Ambulatory Encounter Rinal Herbert Afton Anisa [facility] UNK - Ambulatory [...] Medicine UNK - Ambulatory Encounter Steve Archuleta [facility] Adult Medicine UNK - Ambulatory Encounter Ellajay Keon [facility] Adult Medicine UNK - Ambulatory Encounter Jessica Bryson Ana Laura Gregg [facility] Adult Medicine UNK - Ambulatory Encounter Beth Jc [facility] Adult Medicine UNK - Ambulatory Encounter Ramiro Campos Jc [facility] Adult Medicine UNK - Ambulatory Encounter Ramiro Rizzo [facility] Adult Medicine UNK - Ambulatory [facility] Adult Medicine UNK - Ambulatory Encounter Ramiro Rizzo [facility] Adult Medicine UNK - Ambulatory Encounter Ramiro Rizzo [facility] Adult Medicine UNK - Ambulatory Encounter Ramiro Rizzo [facility] Adult Medicine UNK - Ambulatory En[facility] Immunization updatePreventive health careColorectal screeningProstate Cancer, Screening - Ambulatory Encounter Ramiro Guerra [facility] Adult Medicine UNK - Ambulatory Encounter Ramiro Rizzo [facility] UNK - Ambulatory Encounter Ramiro Rizzo [facility] Adult Medicine UNK - Ambulatory Encounter Ramiro Rizzo [facility] Adult Medicine UNK - Ambulatory Encounter Ramiro Rizzo LinkLogic [facility] Adult Medicine UNK - Ambulatory Encounter [facility] - [facility]ulatory [facility] - Ambulatory Encounter Ramiro Friend'Isidro Friend'Isidro [facility] Adult Medicine UNK - Ambulatory Encounter Ramiro Friend'Isidro Livingston [facility] Adult Medicine BMI 32.0-32.9Candidal balanitisBMI 29.0-29.9Preventive health carePeripheral vascular insufficiencyColorectal screeningProstate Cancer, Screening - Ambulatory Encounter Ramiro Friend'Isidro LinkLogic [facility] Adult Medicine UNK - Ambulatory Encounter Ramiro Friend'Isidro LinkLogic [facility] Adult Medicine UNK - Ambulatory Encounter Lacey Hall [facility] Dental UNK - Ambulatory Encounter Ramiro Friend'Isidro Friend'Isidro Acuña [facility] UNK - Ambulatory Encounter Ramiro Rizzo [facility] Adult Medicine UNK - Ambulatory Encounter Ramiro Friend'Isidro Arellano [facility] Adult Medicine BronchitisCandidal balanitisImmunization update - Ambulatory Encounter Mag Son [facility] Adult Medicine UNK - Ambulatory Encounter Ramiro Friend'Isidro Friend'Isidro Guerra [facility] Adult Medicine UNK - Ambulatory Encounter Ramiro Friend'Isidro LM Adult Medicine UNK - Ambulatory Encounter Ramiro Friend'Isidro LinkLogic [facility] Adult Medicine UNK - Ambulatory Encounter Ramiro Friend'Isidro Hare O'Isidro [facility] Adult Medicine UNK - Ambulatory Encounter Ramiro Friend'Isidro Hare O'Isidro Steve Archuleta [facility] Adult Medicine BMI 32.0-32.9Bronchitis - Ambulatory Encounter Ramiro Friend'Isidro [facility] Adult Medicine UNK - Ambulatory Encounter Ramiro Friend'Isidro Friend'Isidro [facility] Adult Medicine UNK - Ambulatory Encounter Ramiro Friend'Isidro [facility]Isidro [facility] Helicobacter pylori gastrointestinal tract infectionVaccination Against Influenza - Ambulatory Encounter Florencio Givens [facility] Adult Medicine UNK - Ambulatory Encounter Anna Connell [facility] Adult Medicine UNK - Ambulatory Encounter Anna Connell LinkLogic [facility] Adult Medicine UNK - Ambulatory Encounter Ramiro Friend'Isidro Friend'Isidro LinkLogic [facility] Adult Medicine UNK - Ambulatory Encounter Av Tinajero [facility] Adult Medicine UNK - Ambulatory Encounter Ramiro Friend'Isidro [facility] Adult Medicine UNK - Ambulatory Encounter Ramiro Friend'Isidro Friend'Isidro Arellano [facility] Adult Medicine UNK - Ambulatory Encounter Ramiro Friend'Isidro Friend'Isidro LinkLogic [facility] Adult Medicine UNK - Ambulatory Encounter Ramiro Friend'Isidro Ramiro Payam O'Isidro [facility] UNK - Ambulatory [...] Hare O'Isidrojay Hare O'Isidro [facility] Adult [facility] Diabetes mellitus, type IIErectile dysfunctionHyperlipidemiaHelicobacter pylori gastrointestinal tract infectionVitamin D deficiency - Ambulatory Encounter Ramiro Mills [facility] Adult Medicine UNK - Ambulatory Encounter Yuri [facility] Adult Medicine UNK - Ambulatory Encounter Yuri [facility] Adult Medicine UNK - Ambulatory Encounter Ramiro Rizzo [facility] Adult Medicine UNK - Ambulatory Encounter Ramiro Rizzo Zachary Arellano [facility] Adult Medicine OverweightHypertensionDiabetes mellitus, type IIAbdominal pain, left upper quadrantHx of syncopeErectile dysfunctionDiabetic peripheral neuropathy - Ambulatory En[facility] - Ambulatory Encounter Av Lior [facility] Adult Medicine UNK - Ambulatory Encounter Av Tinajero [facility] Adult Medicine UNK VITAL [...] 1.005-1.030 blood glucose, random 144 mg/dL Co [facility] blood glucose, random 198 mg/dL Co [facility] hemoglobin A1C, blood, as % [...] 4.8-5.6 High blood glucose, fasting 138 mg/dL Afton Anisa microalbumin/total urine volume 2318.5 mg/L [facility] [...] High blood glucose, random 252 mg/dL Mag Rossijas thyroid stimulating hormone, serum 2.920 u[iU]/mL [facility]ic [...] LinkLogic 3.4-10.8 blood glucose, random 206 mg/dL Zacharyamanda Garzais hemoglobin A1C, blood, as % of total [...] LinkLogic 3.4-10.8 blood glucose, random 120 mg/dL [facility] blood glucose, random 200 mg/dL [facility] Quantiferon Gold TB blood test [...] MG ORAL TABLET take 1 tablet daily Ellajay Nortonel HUMALOG 100 UNIT/ML SUBCUTANEOUS SOLUTION inject 4 units pre meal Three Times a Day Paula Norman MUPIROCIN 2 % EXTERNAL OINTMENT apply 4 times a day as needed Paula Norman AMOXICILLIN-POT CLAVULANATE 875-125 MG ORAL TABLET take 1 tab By Mouth Twice a Day - Paula Norman BD PEN NEEDLE SHORT U/F 31G X 8 MM use for lantus injections Ellaal Herbert LANTUS SOLOSTAR 100 UNIT/ML SUBCUTANEOUS SOLUTION [...] now. Repeat in three days. - Ramiro Rizoz FARXIGA 5 MG ORAL TABLET Take 1 [...] Twice a Day with largest meals - Raimro Rizzo LIPITOR 40 MG ORAL TABLET 1 [...] Observation Value Provider assessment of health literacy ([facility] 2014 Standards, 3C10) Adequate Ramiro Otto " Reason for the consultation - consult note Free glucometer per referral by Dr. Keon Otto " The member(s) participating in the consultation Patient Ramiro Otto Exercise Program Referral T Juan Luis Bennett " Weight Management Counseling Provided T Juan Luis Bennett " Nutrition intervention T Juan Luis Bennett " drug use, illicit Never Co Юлия Bennett " alcohol use Never Co Юлия Bennett " social history reviewed E&M reviewed today Juan Luis Bennett " sexual orientation Heterosexual Co Юлия Moxey " assessment of health literacy ([facility] 2014 Standards, 3C10) Adequate Co Юлия Moxey [...] Steve Archuleta " assessment of health literacy ([facility] 2014 Standards, 3C10) Adequate Steve Archuleta " passive cigarette smoke exposure Yes Steve Archuleta " smoking status current every day smoker Steve Archuleta drug use, illicit Never Co Юлия Moxey " alcohol use Never Co Юлия Moxey " social history reviewed E&M reviewed today Co Юлия Moxey " sexual orientation Heterosexual Co Юлия Moxey " assessment of health literacy ([facility] 2014 Standards, 3C10) Adequate Co Юлия Moxey [...] Юлия Moxey " assessment of health literacy ([facility] 2014 Standards, 3C10) Adequate Co Юлия Moxey [...] Юлия Moxey " assessment of health literacy ([facility] 2014 Standards, 3C10) Adequate Co Юлия Moxey " passive cigarette smoke exposure Yes Co Юлия Moxey " smoking status current every day smoker Co Юлия Idrisxey time of call 06/27/2019 10:24 AM Rebecca [...] Steve Archuleta " assessment of health literacy ([facility] 2014 Standards, 3C10) Adequate Steve Archuleta " [...] " social history reviewed E&M reviewed today Lornayelysujata Roberto " assessment of health literacy ([facility] 2014 Standards, 3C10) Adequate Lormarilee Mejia " passive cigarette smoke exposure No Lormarilee Mejia " Exercise Program Referral T Lornayelya Roberto " Weight Management Counseling Provided T Loraina Roberto " Nutrition intervention T Hermelindaaina Roberto time of call 01/09/2019 9:58 AM [...] Cathy Quintanilla " assessment of health literacy ([facility] 2014 Standards, 3C10) Adequate Cathy Quintanilla " passive cigarette smoke exposure No Cathy Quintanilla " smoking status current every day smoker Cathy Quintanilla time of call 10/25/2018 9:14 AM Angle Avila social history reviewed E&M reviewed today Jennifer Malin " drug use, illicit Never Aamir Manning " alcohol use Never Aamir Manning " Occupation #[employer] Aamir Manning " sexual orientation Heterosexual Aamir Manning " assessment of health literacy ([facility] 2014 Standards, 3C10) Adequate Aamir Manning " [...] Never Savanna Anisa " alcohol use Never Afton Anisa " social history reviewed E&M reviewed today Savanna Anisa " passive cigarette smoke exposure No Afton Anisa " smoking status current every day smoker Afton Anisa " Exercise Program Referral T Savanna [...] Anxiety Disorder Questionnaire - Question 2 0 Setve Archuleta " Generalized Anxiety Disorder Questionnaire - [...] 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 [id number] [facility] [id number] [facility] 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 [id number] Sliding 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 [id number] Sliding 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 Ofc Vst, Est Level IV Nephrology - Adult - [facility] Ofc Vst, Est Level IV Ofc Vst, Est Level IV Ofc Vst, Est Level IV Ofc Vst, Est Level IV Ofc Vst, Est Level IV [facility] - Internal Nephrology - Adult [facility] VACCINE QUADRIVALENT 3 YRS PLUS IM Admin of Vaccine - Injection - 1 Est Patient Detailed - 61056 Nephrology [facility] Est Patient Detailed - 40004 Ofc Vst, Est Level IV Glucose Stick Prescription Assistance (Non-HIV) Ofc Vst, Est Level IV Vision Diabetes Education Endocrinology - Adult - [facility] Est Patient Detailed - 50681 Est Patient Well Exam (40 - 64 Yrs) - 51947 Pneumovax Vaccine PPSV23 Admin of Vaccine - Injection - 1 Est Patient Detailed - 68879 Prevnar (PCV13) IM TDAP Admin of Vaccine - Injection - Each Add'l Admin of Vaccine - Injection - 1 Est Patient Detailed - 18700 Est Patient Exp Problem - 49989 Est Patient Exp Problem - 61047 Est Patient Exp Problem - 09726 Est Patient Problem Focus - 61783 Glucose Stick Est Patient Exp Problem - 77453 Glucose Stick Venipuncture Handling of specimen for transfer New Patient Comprehensive - 92096 HISTORY OF PROCEDURES Procedure Date Procedure Name Provider Procedure Notes Status Glucose Stick Rinal Herbert completed Glucose Stick Ramiro Rizzo completed Glucose Stick Ramiro Rizzo completed Venipuncture Ramiro Rizzo completed GOALS No Information Available HEALTH CONCERNS No Information Available
[2019-10-07] MEDS ORDERED: MORPHINE SULFATE 2 MG/ML SYR 1ML IV PRN (23:15)
[2019-10-07] MEDS ORDERED: ONDANSETRON HCL INJ 2MG/ML 2ML 2 MG/ML VIAL IV PRN (23:15)
[2019-10-07] MEDS ORDERED: ACETAMINOPHEN 325 MG TAB PO ONE (23:15)
[2019-10-07] MEDS ORDERED: SODIUM CHLORIDE 0.9% 1000ML 1,000 ML IV ONE (23:15)
[2019-10-07] MEDS ORDERED: PIPER-TAZ 3.375 GM 50 ML ONE (23:18)
[2019-10-07 23:19] LABS: BASOPHILS % 0.1 % (0.0-1.0); EOSINOPHILS # (AUTO) 0.1 (0.0-0.4); EOSINOPHILS % 0.8 % (0.0-6.0); HEMATOCRIT 38.5 % (38.2-49.6); HEMOGLOBIN 12.7 g/dL (14.0-18.0); LYMPHOCYTES # (AUTO) 0.4 (1.0-3.2); LYMPHOCYTES % 4.9 % (18.0-39.1); MEAN CORPUSCULAR VOLUME 93.9 fL (81-99); MONOCYTES # (AUTO) 0.1 (0.2-0.8); MONOCYTES % 1.2 % (4.4-11.3); NEUTROPHILS % 92.5 % (38.7-80.0); PLATELET COUNT 454 x10e3/uL (140-360); RED CELL DISTRIBUTION WIDTH 12.1 % (11.7-14.4)
[2019-10-07] MEDS ORDERED: SODIUM CHLORIDE 0.9% 1000ML 1,000 ML IV SCH (23:30)
[2019-10-07 23:34] LABS: ALBUMIN 2.1 g/dL (3.5-5.0); ALBUMIN/GLOBULIN RATIO 0.3 (0.8-2.0); ANION GAP 15.8 mmol/L (8-16); CALCIUM 9.6 mg/dL (8.4-10.2); CREATININE, SERUM 3.25 mg/dL (0.72-1.25); POTASSIUM 4.8 mmol/L (3.5-5.1)
[2019-10-07] MEDS ORDERED: PIPER-TAZ 3.375 GM 50 ML IV ONE (23:45)
[2019-10-07] MEDS ORDERED: MORPHINE SULFATE INJ 4 MG/ML INJ 1ML IV PRN (23:45)
[2019-10-08] MEDS: SODIUM CHLORIDE 0.9% 1000ML 1,000 ML IV SCH ×3 (01:15→16:40)
[2019-10-08 05:48] LABS: BASOPHILS # (AUTO) 0.1 (0.0-0.1); BASOPHILS % 0.2 % (0.0-1.0); EOSINOPHILS % 0.1 % (0.0-6.0); HEMATOCRIT 30.7 % (38.2-49.6); LYMPHOCYTES % 3.8 % (18.0-39.1); MEAN CORPUSCULAR HEMOGLOBIN 30.5 pg (28-32); MEAN CORPUSCULAR HGB CONC 32.6 g/dL (31-35); MEAN CORPUSCULAR VOLUME 93.6 fL (81-99); MONOCYTES # (AUTO) 1.7 (0.2-0.8); MONOCYTES % 6.5 % (4.4-11.3); NEUTROPHILS % 88.6 % (38.7-80.0); PLATELET COUNT 338 x10e3/uL (140-360); RED BLOOD COUNT 3.28 x10e6/uL (4.3-5.7)
[2019-10-08 06:09] LABS: CALCIUM 8.2 mg/dL (8.4-10.2); CREATININE, SERUM 3.45 mg/dL (0.72-1.25)
--- NOTE | 2019-10-08 06:21 | NUR ---
consult paged to dr saldana. spoke to sales representative [employer]. awaiting call back
--- NOTE | 2019-10-08 06:47 | NUR ---
report given to harley madrid, updated on plan of care.
[2019-10-08] MEDS ORDERED: VANCOMYCIN 1GM/NS 250 ML 250 ML IV SCH (07:30)
[2019-10-08] MEDS ORDERED: ACETAMINOPHEN 325 MG TAB PO PRN (09:45)
[2019-10-08] MEDS ORDERED: SODIUM CHLORIDE 0.9% IV ONE (10:00)
[2019-10-08] MEDS ORDERED: VANCOMYCIN HCL IV ONE (10:00)
[2019-10-08] MEDS ORDERED: DEXTROSE 50% SYRINGE 50 ML IV PRN ×2 (10:00→12:30)
--- NOTE | 2019-10-08 10:48 | History and Physical ---
ADDENDUM: The patient has CKD stage 4, seems to be at his baseline, I am not sure. Family reports that he had some renal disease, but they do not know the actual stage. At this time, we will just continue to monitor on IV fluids. I did renally adjust his medications including his vancomycin and cefepime antibiotics that he is currently on. MD RAFA Dumont/MODSher /[phone]
[2019-10-08 11:31] VITALS: BP 173/77
[2019-10-08] MEDS ORDERED: AUGMENTIN 875-1 EACH PO (11:56)
[2019-10-08] MEDS ORDERED: HYDRALAZINE HCL25 MG PO (11:56)
[2019-10-08] MEDS ORDERED: METOPROLOL SUCC25 MG PO (11:56)
[2019-10-08] MEDS ORDERED: TRADJENTA5 MG PO (11:56)
[2019-10-08] MEDS ORDERED: BUMETANIDE1 MG PO (11:56)
[2019-10-08] MEDS ORDERED: MUPIROCIN22 GM TOP (11:57)
[2019-10-08] MEDS ORDERED: LANTUS 3ML100 UNITS/ SQ (11:58)
[2019-10-08] MEDS ORDERED: PIPER-TAZ 3.375 GM 50 ML IV SCH (12:00)
[2019-10-08 12:05] VITALS: BP 173/77
--- NOTE | 2019-10-08 12:11 | NUR ---
PATIENT ARRIVED ON THE UNIT AT 1105 PER STRETCHER FROM THE ER. PATIENT IS AWAKE, ALERT AND IN STABLE CONDITION WITH NO S/S OF RESPIRATORY DISTRESS. PATIENT DENIES PAIN. TELEMETRY APPLIED. LEFT GREAT TOE IS BLACKENED, OPEN TO AIR, AND NO DRAINAGE IS NOTED. PRESENT IN ROOM. PATIENT REFUSED BED ALARM. CALL LIGHT IS WITHIN REACH- PATIENT IS INSTRUCTED TO CALL FOR ASSISTANCE NEEDED.
[2019-10-08 12:26] VITALS: BP 173/77
[2019-10-08] MEDS: INSULIN LISPRO 100 UNIT/1 ML 3ML VIAL SQ SCH ×3 (12:30→20:17)
[2019-10-08] MEDS: LISINOPRIL 10 MG TAB PO SCH (13:01)
--- NOTE | 2019-10-08 14:44 | Diagnostic Imaging Report ---
Foot complete CPT code: 78068 Indication: Diabetic, great toe discoloration x1 month ^r/o gas ^[id number] ^[id number] Technique: A.P., oblique and lateral views of the left foot obtained. Comparison: Left toe x-rays 08/26/2019 Findings: Calcaneus is intact with prominent posterior spur. The midfoot is intact. There is diffuse demineralization of the distal phalanx of the great toe with surrounding soft tissue swelling and subcutaneous air. There appears to be a fracture at the volar aspect of the distal tuft nondisplaced on lateral image. The other digits are intact and normal in morphology. Diffuse arterial calcifications. Ulcer at the plantar surface of the great toe at the distal tuft. IMPRESSION: Soft tissue ulceration with subcutaneous air and focal demineralization of the distal phalanx suggestive of osteomyelitis. A nondisplaced fracture of the distal tuft is suspected. Signed by: Dr. Alexandra Guzman MD on 10/08/2019 2:41 PM
[2019-10-08] MEDS: HYDRALAZINE HCL 25 MG TAB PO SCH ×2 (15:10→21:15)
[2019-10-08 15:19] VITALS: BP 150/82
--- NOTE | 2019-10-08 15:55 | History and Physical ---
CHIEF COMPLAINT: Left big toe gangrene. HISTORY OF PRESENT ILLNESS: This is a 54-year-old male, history of type 2 diabetes for several years on insulin, very noncompliant with his medical care as well as his diabetes. His last A1c report was 9.1 about 3 months ago, comes into the emergency room with worsening left big toe gangrene that has been ongoing for the last several weeks. The patient reported to his PCP approximately one month ago, was sent to [facility] to have left toe further evaluated. While at [facility], he apparently had some workup done according to the family. They told them that the foot was fine, they gave him some oral antibiotics and they told them to follow up as an outpatient. He now reports with a temperature of 102 from home. His left big toe has gotten worse according to the family. He came in for further evaluation and management. The patient is seen and evaluated at bedside on the medical floor. He is currently doing well with no other issues at this time. Vital signs were stable when I evaluated him. REVIEW OF SYSTEMS: Pertinent positives: Left big toe gangrene. Pertinent negatives: Denies any chest pain, palpitation, nausea, vomiting, diarrhea, dysuria, hematuria, frequency, urgency, lightheadedness, dizziness, abdominal pain, headaches, shortness of breath, cough, congestion, fever, or any other complaints. The rest of 14-point review of systems have been reviewed with the patient and are negative. ALLERGIES: NO KNOWN DRUG ALLERGIES. HOME MEDICATIONS: Takes: 1. Lisinopril 20 mg daily. 2. Metformin 1000 mg p.o. b.i.d. 3. Lisinopril/hydrochlorothiazide 20/25 mg one tab daily. 4. Jardiance 25 mg daily. 5. Gabapentin 300 mg daily. 6. Lovastatin 20 mg at bedtime. PAST MEDICAL HISTORY: Type 2 diabetes, hypertension, morbidly obese, diabetic foot ulcers, peripheral neuropathy. PAST SURGICAL HISTORY: Reports none. FAMILY HISTORY: Hypertension and diabetes. SOCIAL HISTORY: No drugs. No alcohol. Does not smoke. Good social support. He is . PHYSICAL EXAMINATION: VITAL SIGNS: Temperature is 98.3, pulse 65, respiratory rate 16, blood pressure is 111/50, and pulse ox is 98% on room air. GENERAL: Not in acute distress. Alert and oriented x3. Cooperative on examination. HEENT: Head; normocephalic, atraumatic. Eyes; pupils are equal, round, and reactive to light bilaterally. Extraocular movements intact bilaterally. Throat; no evidence of erythema or exudates in the posterior pharynx. Has poor dentition. NECK: Supple. Good range of motion. PULMONARY: Clear to auscultation bilaterally. No wheezing, no rales, no rhonchi, no crackles appreciated. CARDIOVASCULAR: Positive S1 and S2. No murmurs, rubs, or gallops appreciated. ABDOMEN: Soft, nondistended, and nontender to palpation. Bowel sounds were present. MUSCULOSKELETAL: Strength is 5/5 throughout. No evidence of any muscle deficits on examination. No weakness appreciated. NEUROLOGIC: Cranial nerve II through XII grossly intact. No evidence of any neurological deficits on exam. SKIN: Intact. Warm to touch. Good cap refill. PSYCHIATRIC: Normal affect and mood. EXTREMITIES: Left foot big toe gangrene necrotic, but palpable pulses with warm to touch. Good blood flow appreciated. LABORATORY DATA: Labs show white count was initially on admission 8.6, now 25.9, hemoglobin was 10, hematocrit was 30.7, platelets of 338. Chemistry; sodium 134, potassium 4, chloride 110, bicarb 17, anion gap of 11, BUN is 37, creatinine is 3.45, glucose was 207, calcium 8.2. LFTs within normal range. Albumin 2.1. MICROBIOLOGY: Cultures are pending. IMAGING STUDIES: None. IMPRESSION: 1. Diabetic foot ulceration, left big toe gangrene. 2. Type 2 diabetes. 3. Hypertension. 4. Morbid obesity. 5. Peripheral neuropathy. PLAN: At this time, Podiatry has been consulted to evaluate the left big toe. MRI of the foot as well as x-ray of the foot for further evaluation and management. Continue with IV antibiotics. Blood cultures have been collected. Lactic acid and procalcitonin levels have been ordered. We will also get repeat labs as his white count is elevated to 25. Put him on insulin sliding scale, Accu-Cheks, A1c. Monitor blood pressure very closely. Resume same home medications. We will restart the patient's home gabapentin. Nutrition to start on diabetic diet. Lovenox for DVT prophylaxis. Otherwise, we will continue with same plan of care and monitor very closely. We will also get an arterial Doppler of the left lower extremity to evaluate for any type of flow obstruction. MD RAFA Dumont/EMMETT /[id number]
[2019-10-08] MEDS: ENOXAPARIN SOD INJ 40 MG/0.4 ML SYR SC SCH (16:40)
[2019-10-08 17:36] LABS: BASOPHILS # (AUTO) 0.1 (0.0-0.1); BASOPHILS % 0.3 % (0.0-1.0); EOSINOPHILS # (AUTO) 0.3 (0.0-0.4); EOSINOPHILS % 0.9 % (0.0-6.0); HEMATOCRIT 33.4 % (38.2-49.6); LYMPHOCYTES # (AUTO) 2.6 (1.0-3.2); LYMPHOCYTES % 8.9 % (18.0-39.1); MEAN CORPUSCULAR HGB CONC 32.9 g/dL (31-35); MEAN CORPUSCULAR VOLUME 94.1 fL (81-99); MONOCYTES # (AUTO) 1.9 (0.2-0.8); MONOCYTES % 6.7 % (4.4-11.3); NEUTROPHILS # (AUTO) 24.1 (2.1-6.9); NEUTROPHILS % 82.7 % (38.7-80.0); PLATELET COUNT 379 x10e3/uL (140-360); RED BLOOD COUNT 3.55 x10e6/uL (4.3-5.7); RED CELL DISTRIBUTION WIDTH 12.1 % (11.7-14.4)
--- NOTE | 2019-10-08 19:18 | NUR ---
PATIENT IS IN STABLE CONDITION WITH NO S/S OF RESPIRATORY DISTRESS- NO PAIN VOICED. IV FLUIDS AND TELEMETRY APPLIED. PRESENT IN ROOM. CALL LIGHT IS WITHIN REACH, PATIENT INSTRUCTED TO CALL FOR ASSISTANCE NEEDED. REPORT GIVEN TO ONCOMING NURSE.
--- NOTE | 2019-10-08 19:21 | Diagnostic Imaging Report ---
CT Abdomen and Pelvis without contrast INDICATION: Loose bowels and leukocytosis ^loose bm's ^[id number] ^[id number] TECHNIQUE: Thin collimation axial images obtained from the diaphragm to the level of the pubic symphysis without nonionic intravenous contrast. Dose reduction techniques used: Automated exposure control, adjustment of the mAs and/or kVp according to patient size, standardized low-dose protocol, and/or iterative reconstruction technique. RADIATION DOSE: Total DLP: 719.8 mGy*cm Estimated effective dose: (DLP x 0.015 x size factor) mSv CTDIvol has been reviewed. It is below the limits set by the Radiation Protocol Committee (RPC). COMPARISON: None. ABDOMEN FINDINGS: Lung Bases: Mild bibasilar atelectasis. The heart is mildly enlarged to top normal in size. Liver: Cirrhosis. No mass on these unenhanced images. Gallbladder: Present and appears normal. No ductal dilatation. Pancreas: Mild fatty atrophy. No soft tissue mass or ductal dilatation. Tiny calcifications in the uncinate process. Spleen: 14 cm in length. No mass. Adrenal Glands: No evidence for mass. Kidneys: Mild perinephric inflammation. Right: No renal calculus. No cortical mass or hydronephrosis Left: No renal calculus. No cortical mass or hydronephrosis Lymph Nodes: Mildly prominent aortocaval lymph nodes measuring up 12 14 mm in short axis. Aorta: Normal in diameter. Scattered calcifications. PELVIS FINDINGS: Bowel: Stomach: Normal. Small Bowel: Normal in caliber with normal wall thickness. Large Bowel: Mild to moderate burden of stool in the right colon and transverse colon. There is fluid distending the rectum with mild perirectal inflammation. No evidence of diverticulosis. Appendix: Normal. Bladder: Well distended and grossly normal. Ureters: No ureteral dilatation or calculus. There are calcifications in the vas deferens. The prostate gland is not enlarged. Peritoneum/Retroperitoneum: Mild ascites. Bones: Mild degenerative changes of the spine. No focal osseous lesions. Soft tissues: Multiple penile calcifications. IMPRESSION: 1. Fluid distending the rectum with mild perirectal inflammation. Findings are nonspecific. Please correlate for signs/symptoms of proctitis. No evidence of colitis. No evidence of bowel obstruction. Normal appendix. 2. No evidence of renal calculus or obstructive uropathy. 3. Cirrhosis and chronic pancreatitis. Signed by: Dr. Alexandra Guzman MD on 10/08/2019 7:18 PM
[2019-10-08] MEDS: GABAPENTIN 300 MG CAP PO SCH (20:17)
--- NOTE | 2019-10-08 20:18 | NUR ---
DR WALSH MADE AWARE OF THE FOOT X RAY AND CT ABDOMEN RESULT NEW ORDER RECEIVED.
[2019-10-08 20:29] VITALS: BP 185/81
[2019-10-08 20:43] VITALS: BP 185/81
[2019-10-08] MEDS: CEFEPIME 1GM/NS 0.9% 50 ML 50 ML IV SCH (21:15)
[2019-10-08] MEDS: SIMVASTATIN 20 MG TAB PO SCH (21:16)
[2019-10-08] MEDS: MORPHINE SULFATE 2 MG/ML SYR 1ML IV PRN (21:25)
[2019-10-08] MEDS: INSULIN GLARGINE 100 UNITS/ML VIAL SQ SCH (21:26)
[2019-10-08] MEDS: METRONIDAZOLE 500MG/NS 100ML 100 ML IV SCH (22:01)
[2019-10-08 22:38] LABS: BAND NEUTROPHILS % (MANUAL) 5 %; LYMPHOCYTES % (MANUAL) 12 % (19-48); MONOCYTES % (MANUAL) 6 % (3.4-9.0); NEUTROPHILS % (MANUAL) 76 % (40-74); PLASMA CELLS %(MANUAL) 1
[2019-10-08 22:39] LABS: PLATELET ESTIMATE ADEQUATE; PLATELET MORPHOLOGY COMMENT FEW LARGE
[2019-10-08 22:40] LABS: ANISOCYTOSIS SLIGHT
[2019-10-09] VITALS (8 sets, daily range): BP systolic 137–196; BP diastolic 66–88
[2019-10-09] MEDS: METRONIDAZOLE 500MG/NS 100ML 100 ML IV SCH ×3 (05:10→22:00)
[2019-10-09 06:03] LABS: BASOPHILS # (AUTO) 0.1 (0.0-0.1); BASOPHILS % 0.4 % (0.0-1.0); EOSINOPHILS # (AUTO) 0.5 (0.0-0.4); HEMATOCRIT 29.5 % (38.2-49.6); HEMOGLOBIN 9.5 g/dL (14.0-18.0); LYMPHOCYTES # (AUTO) 2.7 (1.0-3.2); MEAN CORPUSCULAR HEMOGLOBIN 30.7 pg (28-32); MEAN CORPUSCULAR HGB CONC 32.2 g/dL (31-35); MEAN CORPUSCULAR VOLUME 95.5 fL (81-99); MONOCYTES # (AUTO) 1.4 (0.2-0.8); MONOCYTES % 6.2 % (4.4-11.3); NEUTROPHILS # (AUTO) 17.9 (2.1-6.9); NEUTROPHILS % 78.9 % (38.7-80.0); PLATELET COUNT 342 x10e3/uL (140-360); RED BLOOD COUNT 3.09 x10e6/uL (4.3-5.7); RED CELL DISTRIBUTION WIDTH 12.3 % (11.7-14.4)
[2019-10-09 06:21] LABS: ANION GAP 11.2 mmol/L (8-16); CALCIUM 7.8 mg/dL (8.4-10.2); CREATININE, SERUM 3.29 mg/dL (0.72-1.25); POTASSIUM 4.2 mmol/L (3.5-5.1)
--- NOTE | 2019-10-09 07:00 | NUR ---
received am report and rounds done. pt is alert sitting up in bed, no s/s of distress. call light within reach and instructed pt to call RN for help. family is at the bedside.
--- NOTE | 2019-10-09 07:28 | NUR ---
IM- progess note O/N no events v/s; revd PE nad anicteric ns1s2 mod bs soft nt nd no t; left foot great toe dry gangrenous changes. skin dry flat affect a&ox3; fuller labs/meds; revd A/P: 54yoM DFU- left foot great toe Left foot great toe gangrene SEpsis- POA HTN DM2 DM-neuropahty EDGAR PLAN IVF May have CKD Add clindamycin IV abx; add betadine topically; d/c planning; needs f/u outpt with [facility] where pt has rec'd care; Pt has gangrene of toe for 1 month. Needs to f/u with podiatry outpt. Anirudh Ellis MD, PhD.
[2019-10-09] MEDS: INSULIN LISPRO 100 UNIT/1 ML 3ML VIAL SQ SCH ×4 (07:30→21:00)
[2019-10-09] MEDS ORDERED: CLINDAMYCIN 300MG 50 ML IV SCH (08:00)
[2019-10-09] MEDS: INSULIN GLARGINE 100 UNITS/ML VIAL SQ SCH ×2 (08:30→21:00)
[2019-10-09] MEDS: GABAPENTIN 300 MG CAP PO SCH ×2 (08:43→17:11)
[2019-10-09] MEDS: HYDRALAZINE HCL 25 MG TAB PO SCH ×3 (08:43→21:11)
[2019-10-09] MEDS: METOPROLOL SUCCINATE 25 MG TAB XL PO SCH (08:44)
[2019-10-09] MEDS: LISINOPRIL 10 MG TAB PO SCH (08:44)
[2019-10-09] MEDS ORDERED: POVIDONE IODINE 10% 120 ML BTL EXT SCH (09:00)
[2019-10-09] MEDS ORDERED: BUMETANIDE 1 MG TAB PO SCH (09:00)
[2019-10-09] MEDS ORDERED: GABAPENTIN 300 MG CAP PO SCH (09:00)
[2019-10-09] MEDS: NON-FORMULARY MEDICATION (Linagliptin (Tradjenta) 5 MG) PO SCH (09:00)
[2019-10-09] MEDS: CEFEPIME 1GM/NS 0.9% 50 ML 50 ML IV SCH ×2 (09:40→21:00)
--- NOTE | 2019-10-09 09:44 | Diagnostic Imaging Report ---
TECHNIQUE: Magnetic resonance imaging of the LEFT foot was performed WITHOUT injected contrast. HISTORY: Pain, evaluate for infection COMPARISON: None available. DISCUSSION: Soft tissue ulceration of the hallux bone marrow edema and T1 replacement involving the distal phalanx. Mild edema involving the distal aspect of the proximal phalanx without T1 replacement. Degenerative arthrosis of the first MTP joint. Soft tissue swelling of the foot. No abscess. Atrophy of the musculature. 9 mm plantar fibroma. IMPRESSION: Osteomyelitis distal phalanx of the hallux and probable early osteomyelitis of the distal aspect of the proximal phalanx. Signed by: Dr. Patrick Barton M.D. on 10/09/2019 9:40 AM
[2019-10-09] MEDS: SODIUM CHLORIDE 0.9% 1000ML 1,000 ML IV SCH ×2 (11:27→21:10)
[2019-10-09] MEDS ORDERED: VANCOMYCIN HCL 1.25 GM in SODIUM CHLORIDE 0.9% 250ML 250 ML IV ONE (13:00)
[2019-10-09] MEDS ORDERED: INFLUENZA VIRUS VAC SPLIT INJ 0.5 ML SYR IM ONE (13:30)
--- NOTE | 2019-10-09 14:40 | NUR ---
Nutrition Screen Note RD Recommendation for Physician: Plan of Care: RD following, monitoring for tolerance and adequacy Nutrition reason for involvement: Nutrition Risk Trigger- MST2 Primary Diagnose(s): gangrene of toe, sepsis PMH: DM2, HTN, obesity, diabetic foot ulcers, peripheral neuropathy Ht: 68 in Wt: 201.5 lb BMI: 30.6 kg/m2 IBW: [address] Assessment: (10/09) 54 YOM admitted for gangrene of toe on L foot and sepsis. Pt seen today per MST screen. Pt reports decreased po intake on Wednesday and Wednesday, reports eating well upon admit last night. Pt denies GI distress. Pt reports UBW of 212# 1 month ago, current wt of 207# at time of visit- insignificant wt change noted. Questionable admit wt. Pt discussed during am rounds, plan for MRI of L foot today. Chart reviewed. Labs and meds reviewed. Will continue to monitor. Current Diet: 1800 ADA Malnutrition Evaluation (10/09/19) The patient does not meet criteria for a specified degree of malnutrition at this time. Will re-evaluate at follow-up as appropriate. 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
--- NOTE | 2019-10-09 15:48 | NUR ---
GAVE PACKET OF INFORMATION WITH COMMUNITY [employer] FOR ASSISTANCE WITH LOW TO NO INCOME TO PATIENT. RESOURCES THAT PATIENT MAY BE ABLE TO FOLLOW UP UPON DISCHARGE. PT EDUCATED ON EACH RESOURCE AND UNDERSTANDING HOW TO FOLLOW UP TO SEE IF QUALIFIED FOR EACH RESOURCE.
[2019-10-09] MEDS: ENOXAPARIN SOD INJ 40 MG/0.4 ML SYR SC SCH (17:11)
--- NOTE | 2019-10-09 17:40 | Consultation ---
DATE OF CONSULTATION: 10/09/2019 INFECTIOUS DISEASE CONSULT REASON FOR CONSULTATION: Diabetic foot ulcer and fever. Thank you, Dr. Ellis, for asking me to see this patient, who was admitted through the emergency department. HISTORY OF PRESENT ILLNESS: The patient presented to the emergency department on 10/07/2019, with fever to 103 degrees Fahrenheit. He has had diarrhea for a few days. He has left great toe durand wound for several weeks and has been taking amoxicillin and Bactrim at least 3 weeks for infection of the wound. At the emergency department, he was noted to have temperature of 102.6 degrees Fahrenheit, pulse rate 104, respiratory rate 19, blood pressure 188/94, and oxygen saturation 98% on room air. Initial laboratory studies showed blood leukocyte count of 8690 with 92.5% neutrophils, BUN 36, creatinine 3.25, and blood glucose 341. MRI of the left foot showed osteomyelitis of the distal phalanx and probable osteomyelitis of the proximal phalanx of the left great toe. PAST MEDICAL HISTORY: Diabetes mellitus type 2, hypertension, hyperlipidemia, diabetic foot wound, and peripheral neuropathy. PAST SURGICAL HISTORY: None. ALLERGIES: NO KNOWN DRUG ALLERGIES. MEDICATIONS: See MAR. The current antibiotics are cefepime 1 g IV piggyback q.12 hours, metronidazole 500 mg IV piggyback q.8 hours, and clindamycin 300 mg IV piggyback q.6 hours. The patient received vancomycin and Zosyn in the emergency room. IMMUNIZATIONS: The patient has not received influenza vaccine this season. Tetanus/ diphtheria vaccine cannot be verified. FAMILY HISTORY: Significant for diabetes mellitus and hypertension. SOCIAL HISTORY: No alcohol or recreational drug use. The patient smokes. The patient has cut down cigarette to 3 a day. He was a heavy smoker until age 21 and then stopped until age 42 and began smoking again after a divorce until today. REVIEW OF SYSTEMS: As per History of Present Illness. The fever and diarrhea subsided. He denies cough, shortness of breath, nausea, vomiting, abdominal pain, and dysuria. He reports intermittent sharp pain of the feet and stated that he was taking gabapentin 600 mg by mouth twice a day for peripheral neuropathy. PHYSICAL EXAMINATION: GENERAL: No acute distress. VITAL SIGNS: T-max 98.4, pulse rate 64, respiratory rate 20, blood pressure 187/44, and weight 201 pounds. HEENT: Normocephalic. There is no icterus or injection of conjunctivae. There is no ear or nasal discharge. Moist oral mucosa. No pharyngeal erythema or exudate. NECK: Supple. No meningismus. LUNGS: With good air entry bilaterally. HEART: With normal S1 and S2. Regular. ABDOMEN: Soft and nontender. EXTREMITIES: There is gangrene of the left great toe with small purulent discharge. The left foot redness has improved. There is trace edema of the left foot. The dorsalis pedis and posterior tibial pulses are both palpable in both feet. There is no edema, clubbing, or cyanosis of the rest of the extremities. SKIN: There is gangrene of the left great toe. No rash. WILD LIFE PHOTOGRAPHER: Awake, alert, and oriented to person, place, and time. There is decreased sensation to monofilament test of the feet. Nonfocal. LABORATORY AND DIAGNOSTICS: WBC 22,630, hemoglobin 9.5, platelet 242,000, neutrophils 78.9, lymphocytes 12, monocytes 6.2, eosinophils 2.2, and basophils 0.4. BUN 38, creatinine 2.39, and blood glucose 93. IMPRESSION: 1. Infected left great toe wound which failed outpatient treatment. 2. Left great toe gangrene. 3. Osteomyelitis of the left great toe. 4. Chronic kidney disease, stage 4. 5. Diabetes mellitus type 2, uncontrolled. 6. Hypertension, uncontrolled. PLAN: 1. Switch clindamycin to vancomycin 15 mg/kg dose with target serum vancomycin level between 15 and 20. 2. Podiatry consult. 3. Glycemic and blood pressure control per hospitalists. 4. Influenza vaccination. Tetanus/diphtheria vaccination if not yet given within 10 years. MD SANTO Horvath/EMMETT /[id number] MTDD
--- NOTE | 2019-10-09 19:39 | NUR ---
RECEIVED PT IN BED AOX3 RESPIRATIONS ARE EVEN AND UNLABORED .DENIES PAIN LEFT FOOT GANGRENE TELE #15 SHOWS SR .CALL LIGHT WITH IN REACH .CONTINUE TO MONITOR
[2019-10-09] MEDS: SIMVASTATIN 20 MG TAB PO SCH (21:11)
[2019-10-09] MEDS ORDERED: ONDANSETRON HCL 4 MG ORAL DISINTEGRATING TAB PO PRN (21:15)
--- NOTE | 2019-10-09 21:45 | Consultation ---
DATE OF CONSULTATION: 10/09/2019 CONSULTED FOR: Left great toe gangrene. HISTORY OF PRESENT ILLNESS: This is a 54-year-old male with history of type 2 diabetes mellitus, who was admitted to the hospital for worsening pain, swelling and discoloration of the right great toe. He states that he is being treated by a family physician for his left foot, however, progressively got worsen, presented to the ER. On admission, he did admit to fever and chills. PAST MEDICAL HISTORY: Significant for hypertension, diabetes mellitus, peripheral neuropathy and high cholesterol, morbid obesity. PAST SURGICAL HISTORY: Reports none. FAMILY HISTORY: Hypertension, diabetes mellitus. SOCIAL HISTORY: Denies any illicit drug abuse, alcohol abuse or tobacco abuse at this point. PHYSICAL EXAMINATION: VITAL SIGNS: Reviewed. Labs were reviewed. Radiographs are reviewed, which do show osteomyelitis of the left great toe. GENERAL: The patient was seen lying in bed, in no acute distress. HEAD: Normocephalic. CHEST: Denies any chest pain. LUNGS: Denies any shortness of breath. ABDOMEN: Soft, nontender. EXTREMITIES: Lower extremity evaluation, palpable pulses to the dorsalis pedis, posterior tibial pulse of the left foot. There is a full thickness gangrene of the left hallux with significant necrosis, malodor and drainage noted at this time. LABORATORY DATA: Reviewed. IMPRESSION: 1. Left hallux gangrene. 2. Type 2 diabetes mellitus, uncontrolled. 3. Peripheral neuropathy. 4. Hypertension. PLAN: From podiatry standpoint, the patient will need a left great toe amputation and we will plan for surgery on Wednesday. He is to have a medical clearance and cardiac clearance prior to surgery. He will be n.p.o. after midnight on Wednesday. We will begin Betadine with dry dressing to the left foot in the interim. Podiatry will continue to follow. Thank you again for including in the care of this patient. MADHU Del Rosario/ADDISONL /[id number]
[2019-10-09] MEDS: MORPHINE SULFATE 2 MG/ML SYR 1ML IV PRN ×2 (23:23→23:59)
[2019-10-10] VITALS (7 sets, daily range): BP systolic 156–207; BP diastolic 70–93
[2019-10-10] MEDS: METRONIDAZOLE 500MG/NS 100ML 100 ML IV SCH ×3 (05:50→22:00)
--- NOTE | 2019-10-10 06:33 | NUR ---
B/P HIGH NOTIFIED DR LARSEN GIVEN ORDERED TO GIVE HYDRALAZINE 100MG Q8HRS AND ONE NOW .PT C/O PAIN NAND GIVEN PAIN MEDICATION.CALL LIGHT WITH IN REACH .CONTINUE TO MONITOR
[2019-10-10] MEDS ORDERED: HYDRALAZINE HCL 100 MG TABLET PO ONE (06:55)
--- NOTE | 2019-10-10 06:57 | NUR ---
IM- progess note O/N no events v/s; revd PE nad anicteric ns1s2 mod bs soft nt nd no t; left foot great toe dry gangrenous changes. skin dry flat affect a&ox3; fuller labs/meds; revd A/P: 54yoM DFU- left foot great toe Left foot great toe gangrene SEpsis- POA HTN DM2 DM-neuropahty EDGAR PLAN IVF May have CKD Add clindamycin IV abx; add betadine topically; d/c planning; needs f/u outpt with [facility] where pt has rec'd care; Pt has gangrene of toe for 1 month. Needs to f/u with podiatry outpt. 3 stop lisinopril and bumex; use 1/2 NS and bicarbs; check renal U/S. control BP. PreOP evaluation: Surgical risk, low/intermediate; Functional status>4mets; Clinical risk: pt has CKD, DM2, Pt may proceed to amputation of toe WITHOUT further testing. Anirudh Ellis MD, PhD.
[2019-10-10] MEDS ORDERED: SODIUM CHLORIDE 0.45% 1,000 ML IV ONE (07:00)
--- NOTE | 2019-10-10 07:00 | NUR ---
received am report and rounds done. pt is alert sitting up in bed, no s/s of distress. call light within reach and instructed pt to call RN for help.
[2019-10-10 07:16] LABS: BASOPHILS % 0.3 % (0.0-1.0); EOSINOPHILS # (AUTO) 0.4 (0.0-0.4); EOSINOPHILS % 2.5 % (0.0-6.0); HEMOGLOBIN 10.2 g/dL (14.0-18.0); LYMPHOCYTES # (AUTO) 2.7 (1.0-3.2); LYMPHOCYTES % 17.4 % (18.0-39.1); MEAN CORPUSCULAR HGB CONC 32.9 g/dL (31-35); MEAN CORPUSCULAR VOLUME 94.2 fL (81-99); MONOCYTES # (AUTO) 1.2 (0.2-0.8); MONOCYTES % 7.5 % (4.4-11.3); NEUTROPHILS # (AUTO) 11.2 (2.1-6.9); NEUTROPHILS % 71.3 % (38.7-80.0); PLATELET COUNT 393 x10e3/uL (140-360); RED BLOOD COUNT 3.29 x10e6/uL (4.3-5.7); RED CELL DISTRIBUTION WIDTH 12.3 % (11.7-14.4)
--- NOTE | 2019-10-10 07:16 | NUR ---
BEDSIDE REPORT GIVEN TO THE ONCOMING NURSE
[2019-10-10] MEDS: INSULIN LISPRO 100 UNIT/1 ML 3ML VIAL SQ SCH ×4 (07:30→21:00)
[2019-10-10 07:34] LABS: ANION GAP 11.2 mmol/L (8-16); CALCIUM 8.6 mg/dL (8.4-10.2); CREATININE, SERUM 3.21 mg/dL (0.72-1.25); POTASSIUM 4.2 mmol/L (3.5-5.1)
[2019-10-10] MEDS: NIFEDIPINE CR 30 MG TAB PO SCH (08:31)
[2019-10-10] MEDS: SODIUM BICARBONATE 650 MG TAB PO SCH ×3 (08:31→20:41)
[2019-10-10] MEDS: GABAPENTIN 300 MG CAP PO SCH ×2 (08:31→17:30)
[2019-10-10] MEDS: METOPROLOL SUCCINATE 25 MG TAB XL PO SCH (08:31)
[2019-10-10] MEDS: NON-FORMULARY MEDICATION (Linagliptin (Tradjenta) 5 MG) PO SCH (08:32)
[2019-10-10] MEDS: INSULIN GLARGINE 100 UNITS/ML VIAL SQ SCH ×2 (09:00→21:00)
[2019-10-10] MEDS: CEFEPIME 1GM/NS 0.9% 50 ML 50 ML IV SCH ×2 (09:31→20:41)
--- NOTE | 2019-10-10 13:42 | Diagnostic Imaging Report ---
EXAM: US RENAL RETROPERITONEAL COMP DATE: 10/10/2019 12:00 AM INDICATION: Acute kidney injury versus chronic kidney disease COMPARISON: CT abdomen/pelvis without contrast from 10/08/2019 FINDINGS: The right kidney is normal in size measuring 11.8 x 5.2 x 5.2 cm with cortical thickness of 1.8 cm. Cortical echogenicity is within normal limits. There is no evidence for solid renal mass, hydronephrosis, or shadowing calculi. The left kidney is normal in size measuring 11.9 x 6.8 x 4.7 cm with cortical thickness of 1.7 cm. Cortical echogenicity is within normal limits. There is no evidence for solid renal mass, hydronephrosis, or shadowing calculi. The partially distended urinary bladder appears unremarkable. Void volume is 106 cc. Bilateral ureteral jets are noted. IMPRESSION: Unremarkable sonographic appearance of the bilateral kidneys. Signed by: Dr. Isidro Tobar MD on 10/10/2019 1:38 PM
[2019-10-10] MEDS: POVIDONE IODINE 10% 120 ML BTL EXT SCH (13:45)
[2019-10-10] MEDS: HYDRALAZINE HCL 100 MG TABLET PO SCH ×2 (14:04→20:41)
[2019-10-10] MEDS: MORPHINE SULFATE 2 MG/ML SYR 1ML IV PRN ×2 (17:30→21:30)
[2019-10-10] MEDS: ENOXAPARIN SOD INJ 40 MG/0.4 ML SYR SC SCH (17:30)
--- NOTE | 2019-10-10 19:14 | NUR ---
RECEIVED PT IN BED AOX3 .DENIES PAIN NO ACUTE DISTRESS NOTED .NPO AFTER MIDNIGHT CALL LIGHT WITH IN REACH .CONTINUE TO MONITOR
[2019-10-10] MEDS: SIMVASTATIN 20 MG TAB PO SCH (20:41)
[2019-10-11] VITALS (8 sets, daily range): BP systolic 131–158; BP diastolic 63–79
--- NOTE | 2019-10-11 05:53 | NUR ---
IM- progess note O/N no events v/s; revd PE nad anicteric ns1s2 mod bs soft nt nd no t; left foot great toe dry gangrenous changes. skin dry flat affect a&ox3; fuller labs/meds; revd A/P: 54yoM DFU- left foot great toe Left foot great toe gangrene SEpsis- POA HTN DM2 DM-neuropahty EDGAR PLAN IVF May have CKD Add clindamycin IV abx; add betadine topically; d/c planning; needs f/u outpt with [facility] where pt has rec'd care; Pt has gangrene of toe for 1 month. Needs to f/u with podiatry outpt. 12/3 stop lisinopril and bumex; use 1/2 NS and bicarbs; check renal U/S. control BP. PreOP evaluation: Surgical risk, low/intermediate; Functional status>4mets; Clinical risk: pt has CKD, DM2, Pt may proceed to amputation of toe WITHOUT further testing. 12-4 renal u/s unremarkable; use IVF and bicarbs; Anirudh Ellis MD, PhD.
--- NOTE | 2019-10-11 06:31 | NUR ---
PT RESTED DURING THE NIGHT .PT IS NPO FOR SURGERY .CALL LIGHT WITH IN REACH .CONTINUE TO MONITOR
[2019-10-11 06:42] LABS: BASOPHILS # (AUTO) 0.1 (0.0-0.1); BASOPHILS % 0.4 % (0.0-1.0); EOSINOPHILS # (AUTO) 0.3 (0.0-0.4); EOSINOPHILS % 2.3 % (0.0-6.0); HEMATOCRIT 30.5 % (38.2-49.6); HEMOGLOBIN 9.9 g/dL (14.0-18.0); LYMPHOCYTES # (AUTO) 2.2 (1.0-3.2); LYMPHOCYTES % 14.9 % (18.0-39.1); MEAN CORPUSCULAR HEMOGLOBIN 30.7 pg (28-32); MEAN CORPUSCULAR HGB CONC 32.5 g/dL (31-35); MEAN CORPUSCULAR VOLUME 94.4 fL (81-99); MONOCYTES % 6.6 % (4.4-11.3); NEUTROPHILS # (AUTO) 10.7 (2.1-6.9); NEUTROPHILS % 74.2 % (38.7-80.0); PLATELET COUNT 365 x10e3/uL (140-360); RED BLOOD COUNT 3.23 x10e6/uL (4.3-5.7); RED CELL DISTRIBUTION WIDTH 12.4 % (11.7-14.4)
[2019-10-11 06:56] LABS: ANION GAP 11.3 mmol/L (8-16); CALCIUM 8.3 mg/dL (8.4-10.2); CREATININE, SERUM 3.38 mg/dL (0.72-1.25); POTASSIUM 4.3 mmol/L (3.5-5.1)
--- NOTE | 2019-10-11 07:10 | NUR ---
PATIENT IS IN STABLE CONDITION WITH NO S/S OF RESPIRATORY DISTRESS- PATIENT C/O LEFT GREAT TOE PAIN 5/10. IV FLUIDS AND TELEMETRY APPLIED. DRESSING APPLIED TO LEFT GREAT TOE IS DRY AND INTACT- PATIENT IS NPO FOR TODAY'S PROCEDURE. CALL LIGHT IS WITHIN REACH, PATIENT INSTRUCTED TO CALL FOR ASSISTANCE NEEDED.
[2019-10-11] MEDS: METRONIDAZOLE 500MG/NS 100ML 100 ML IV SCH ×3 (07:22→22:00)
--- NOTE | 2019-10-11 07:24 | NUR ---
BED SIDE REPORT GIVEN TO THE ONCOMING NURSE
[2019-10-11] MEDS: SODIUM CHLORIDE 0.45% 1,000 ML IV SCH ×2 (07:30→15:28)
[2019-10-11] MEDS: INSULIN LISPRO 100 UNIT/1 ML 3ML VIAL SQ SCH ×4 (07:30→21:00)
[2019-10-11] MEDS: MORPHINE SULFATE 2 MG/ML SYR 1ML IV PRN (07:31)
[2019-10-11] MEDS: INSULIN GLARGINE 100 UNITS/ML VIAL SQ SCH ×2 (08:33→21:00)
[2019-10-11] MEDS: NON-FORMULARY MEDICATION (Linagliptin (Tradjenta) 5 MG) PO SCH (08:33)
[2019-10-11] MEDS: HYDRALAZINE HCL 100 MG TABLET PO SCH ×3 (08:36→20:47)
[2019-10-11] MEDS: NIFEDIPINE CR 30 MG TAB PO SCH (08:36)
[2019-10-11] MEDS: METOPROLOL SUCCINATE 25 MG TAB XL PO SCH (08:36)
[2019-10-11] MEDS: CEFEPIME 1GM/NS 0.9% 50 ML 50 ML IV SCH ×2 (08:37→20:47)
[2019-10-11] MEDS: GABAPENTIN 300 MG CAP PO SCH ×2 (08:37→17:09)
[2019-10-11] MEDS: SODIUM BICARBONATE 650 MG TAB PO SCH ×3 (08:37→20:47)
[2019-10-11] MEDS: POVIDONE IODINE 10% 120 ML BTL EXT SCH (09:00)
--- NOTE | 2019-10-11 12:58 | NUR ---
PATIENT OFF THE FLOOR PER BED TO OR- PATIENT IS IN STABLE CONDITION WITH NO S/S OF RESPIRATORY DISTRESS. TELEMETRY APPLIED.
[2019-10-11] MEDS ORDERED: BUPIVACAINE HCL 0.5% INJ 30 ML VIAL INJ ONE (13:05)
[2019-10-11] MEDS ORDERED: SEVOFLURANE INHAL SOLN 250 ML PEN BTL ONE (13:54)
[2019-10-11] MEDS ORDERED: GLYCOPYRROLATE INJ 1MG/ 5 ML SYR ONE (13:54)
[2019-10-11] MEDS ORDERED: LIDOCAINE HCL 2% LOCAL INJ 5 ML SDV VIAL INJ ONE (13:54)
[2019-10-11] MEDS ORDERED: EPHEDRINE SULFATE INJ 50 MG/10 ML SYR ONE (13:54)
[2019-10-11] MEDS ORDERED: PROPOFOL IV EMULSION 10 MG/ML 20 ML VIAL ONE (13:54)
[2019-10-11] MEDS ORDERED: ONDANSETRON HCL INJ 2MG/ML 2ML 2 MG/ML VIAL ONE (13:54)
[2019-10-11] MEDS ORDERED: MIDAZOLAM HCL 2 MG/2 ML VIAL ONE (14:33)
[2019-10-11] MEDS ORDERED: FENTANYL CITRATE/PF 100MCG/2 ML INJ ONE (14:33)
--- NOTE | 2019-10-11 15:20 | NUR ---
PATIENT BACK ON THE UNIT FROM RECOVERY- PATIENT'S LEFT FOOT IS COVERED WITH CARMINA BANDAGE AND IS INTACT AND DRY. IV ANTIBIOTIC INFUSING. BED ALARM APPLIED. TELEMETRY APPLIED.
[2019-10-11] MEDS: ENOXAPARIN SOD INJ 40 MG/0.4 ML SYR SC SCH (17:09)
--- NOTE | 2019-10-11 19:35 | NUR ---
PATIENT IS IN STABLE CONDITION WITH NO S/S OF RESPIRATORY DISTRESS. PATIENT DENIES PAIN. IV FLUIDS AND TELEMETRY APPLIED. DRESSING TO LEFT FOOT IS INTACT AND DRY. CALL LIGHT IS WITHIN REACH, PATIENT INSTRUCTED TO CALL FOR ASSISTANCE NEEDED. REPORT GIVEN TO ONCOMING NURSE.
--- NOTE | 2019-10-11 19:40 | NUR ---
RECEIVED PT IN BED AOX3 .PT HAD LEFT GREAT TOE AMPUTATION .DENIES PAIN AT THIS TIME .CALL LIGHT WITH IN REACH
[2019-10-11] MEDS: SIMVASTATIN 20 MG TAB PO SCH (20:47)
[2019-10-12] VITALS (8 sets, daily range): BP systolic 138–172; BP diastolic 63–84
[2019-10-12] MEDS: SODIUM CHLORIDE 0.45% 1,000 ML IV SCH ×3 (00:21→21:44)
[2019-10-12] MEDS: MORPHINE SULFATE 2 MG/ML SYR 1ML IV PRN ×3 (02:45→21:44)
[2019-10-12] MEDS: METRONIDAZOLE 500MG/NS 100ML 100 ML IV SCH ×3 (05:25→21:44)
[2019-10-12] MEDS ORDERED: ACETAMINOPHEN/CODEINE 300MG - 30MG TAB PO PRN (05:30)
--- NOTE | 2019-10-12 05:57 | NUR ---
C/O PAIN ONE TIME .DRESSING AT THE GRATE TOE DY AND INTACT .CALL LIGHT WITH IN REACH .CONTINUE TO MONITOR
[2019-10-12 06:30] LABS: BASOPHILS # (AUTO) 0.1 (0.0-0.1); BASOPHILS % 0.5 % (0.0-1.0); EOSINOPHILS # (AUTO) 0.3 (0.0-0.4); EOSINOPHILS % 2.7 % (0.0-6.0); HEMATOCRIT 29.9 % (38.2-49.6); HEMOGLOBIN 9.9 g/dL (14.0-18.0); LYMPHOCYTES # (AUTO) 2.2 (1.0-3.2); LYMPHOCYTES % 17.7 % (18.0-39.1); MEAN CORPUSCULAR HEMOGLOBIN 30.8 pg (28-32); MEAN CORPUSCULAR HGB CONC 33.1 g/dL (31-35); MEAN CORPUSCULAR VOLUME 93.1 fL (81-99); MONOCYTES # (AUTO) 0.8 (0.2-0.8); MONOCYTES % 6.7 % (4.4-11.3); NEUTROPHILS # (AUTO) 8.6 (2.1-6.9); NEUTROPHILS % 70.8 % (38.7-80.0); PLATELET COUNT 367 x10e3/uL (140-360); RED BLOOD COUNT 3.21 x10e6/uL (4.3-5.7); RED CELL DISTRIBUTION WIDTH 12.5 % (11.7-14.4)
[2019-10-12 07:06] LABS: ANION GAP 12.2 mmol/L (8-16); CALCIUM 8.2 mg/dL (8.4-10.2); CREATININE, SERUM 3.02 mg/dL (0.72-1.25); POTASSIUM 4.2 mmol/L (3.5-5.1)
--- NOTE | 2019-10-12 07:10 | NUR ---
PATIENT IS ALERT AND IN STABLE CONDITION WITH NO S/S OF RESPIRATORY DISTRESS. PATIENT C/O LEFT GREAT TOE 01/15 BUT WANTS TO WAIT ON RECEIVING PAIN MEDICATION. PATIENT AWARE PAIN MEDICATION IS AVAILABLE FOR HIM. IV FLUIDS INFUSING. DRESSING TO LEFT FOOT IS DRY AND INTACT. BED ALARM APPLIED. BEDSIDE COMMODE AVAILABLE FOR PATIENT. CALL LIGHT IS WITHIN REACH, PATIENT INSTRUCTED TO CALL FOR ASSISTANCE NEEDED.
--- NOTE | 2019-10-12 07:13 | NUR ---
BEDSIDE REPORT GIVEN TOT HE ONCOMING NURSE
[2019-10-12] MEDS: POVIDONE IODINE 10% 120 ML BTL EXT SCH (07:16)
[2019-10-12] MEDS: INSULIN LISPRO 100 UNIT/1 ML 3ML VIAL SQ SCH ×4 (07:30→21:08)
[2019-10-12] MEDS: NON-FORMULARY MEDICATION (Linagliptin (Tradjenta) 5 MG) PO SCH (07:35)
[2019-10-12] MEDS: SODIUM BICARBONATE 650 MG TAB PO SCH ×3 (08:09→21:08)
[2019-10-12] MEDS: NIFEDIPINE CR 30 MG TAB PO SCH (08:09)
[2019-10-12] MEDS: GABAPENTIN 300 MG CAP PO SCH ×2 (08:09→16:29)
[2019-10-12] MEDS: METOPROLOL SUCCINATE 25 MG TAB XL PO SCH (08:09)
[2019-10-12] MEDS: HYDRALAZINE HCL 100 MG TABLET PO SCH ×3 (08:09→21:08)
[2019-10-12] MEDS: INSULIN GLARGINE 100 UNITS/ML VIAL SQ SCH ×2 (08:09→21:08)
[2019-10-12] MEDS: CEFEPIME 1GM/NS 0.9% 50 ML 50 ML IV SCH ×2 (08:09→21:08)
--- NOTE | 2019-10-12 13:43 | NUR ---
ROUNDED WITH DR. ZUÑIGA ON THE PATIENT- PATIENT'S DRESSINGS ARE DRY AND INTACT. DR. ZUÑIGA WOULD LIKE TO HAVE THE PATIENT F/U WITH HER NEXT WEEK AND WEAR A POST OP SHOE.
[2019-10-12] MEDS: ENOXAPARIN SOD INJ 40 MG/0.4 ML SYR SC SCH (16:29)
--- NOTE | 2019-10-12 19:05 | NUR ---
Received bedside report from day nurse. Patient resting in bed, no s/s of distress or c/o pain at this time. All safety measures in place. Will continue to monitor.
--- NOTE | 2019-10-12 19:17 | NUR ---
PATIENT IS ALERT AND IN STABLE CONDITION WITH NO S/S OF RESPIRATORY DISTRESS. NO PAIN VOICED. IV FLUIDS INFUSING. DRESSING TO LEFT FOOT IS DRY AND INTACT. PATIENT TO FOLLOW UP WITH DR. ZUÑIGA NEXT WEEK AND TO LEAVE WITH A POST OP SHOE. CALL LIGHT IS WITHIN REACH, PATIENT INSTRUCTED TO CALL FOR ASSISTANCE NEEDED. REPORT GIVEN TO ONCOMING NURSE.
[2019-10-12] MEDS: SIMVASTATIN 20 MG TAB PO SCH (21:08)
--- NOTE | 2019-10-12 21:11 | Operative Report ---
DATE OF PROCEDURE: 10/11/2019 SURGEON: Carlene Zavala DPM GARMENT LOOPER: None. PREOPERATIVE DIAGNOSIS: Left foot hallux gangrene. POSTOPERATIVE DIAGNOSIS: Left foot hallux gangrene. PROCEDURE: Left hallux amputation. ANESTHESIA: General. HEMOSTASIS: None. INJECTABLES: 10 mL of 0.5% Marcaine plain. DESCRIPTION OF PROCEDURE: After informed consent was obtained, the patient was brought to the operating room and placed on the operating table in the supine position. General anesthesia was obtained. The left lower extremity was scrubbed, prepped, and draped in the usual aseptic manner. Attention was directed to the left foot where a fish-mouth type incision was made at the base of the 1st digit and disarticulated at the interphalangeal joint level. At this time, two wound cultures were performed and sent to micro. Next, the digit was disarticulated and sent to pathology assessment. The wound was then thoroughly irrigated with copious amount of saline consisting of 3 L of normal sterile saline with 20 mL of Betadine in a pulsed lavage fashion. Next, the wound was then coapted utilizing 3-0 Vicryl and 2-0 nylon. Next, the surgical site was injected with approximately 10 mL of 0.5% Marcaine plain. The patient tolerated the procedure and anesthesia well. The patient was transferred back to the recovery room with vital signs stable and neurovascular status intact to preop status. Carlene Zavala DPM [facility]/MODL /[id number]
[2019-10-13] VITALS: BP 170/79
[2019-10-13] MEDS: MORPHINE SULFATE 2 MG/ML SYR 1ML IV PRN (02:08)
--- NOTE | 2019-10-13 04:44 | Progress Note ---
DATE: 10/12/2019 SUBJECTIVE: The patient was seen at bedside today in no acute distress. Dressings are clean, dry, and intact to the left foot. He denies any overnight constitutional symptoms. He states he is doing quite well. Dressings are clean, dry and intact clinically, no changes. ASSESSMENT: 1. Status post 1-day left hallux amputation. 2. Diabetes mellitus with peripheral neuropathy. PLAN: From Podiatry standpoint, the patient is okay to be discharged home on oral antibiotics. Leave the dressing clean, dry and intact. He is okay to be weightbearing as tolerated in surgical shoe. At this point, Podiatry will sign off. He is to follow up with me in clinic within 1 week of discharge. Thank you again for including me in the care of this patient. Carlene Zavala DPM [facility]/MODL /[id number]
--- NOTE | 2019-10-13 05:00 | NUR ---
Stat BMP labs drawn per Dr. Ellis's orders.
[2019-10-13 05:02] VITALS: BP 155/73
[2019-10-13 05:32] LABS: ANION GAP 10.2 mmol/L (8-16); CALCIUM 8.4 mg/dL (8.4-10.2); CREATININE, SERUM 2.88 mg/dL (0.72-1.25); POTASSIUM 4.2 mmol/L (3.5-5.1)
[2019-10-13] MEDS: METRONIDAZOLE 500MG/NS 100ML 100 ML IV SCH (05:47)
--- NOTE | 2019-10-13 06:14 | NUR ---
Received discharge orders and written Rx from Dr. Ellis.
--- NOTE | 2019-10-13 07:08 | NUR ---
Gave bedside report to day nurse. Patient awake and resting in bed, no s/s of distress or c/o pain at this time. All safety measures in place.
--- NOTE | 2019-10-13 07:09 | NUR ---
received change of shift report, walking rounds completed at bedside, pt in stable condition, will discharge this morning after breakfast.
[2019-10-13] MEDS: INSULIN LISPRO 100 UNIT/1 ML 3ML VIAL SQ SCH (07:30)
[2019-10-13 08:00] VITALS: BP 159/71
[2019-10-13] MEDS: CEFEPIME 1GM/NS 0.9% 50 ML 50 ML IV SCH (08:04)
[2019-10-13] MEDS: NON-FORMULARY MEDICATION (Linagliptin (Tradjenta) 5 MG) PO SCH (08:06)
[2019-10-13] MEDS: INSULIN GLARGINE 100 UNITS/ML VIAL SQ SCH (08:13)
[2019-10-13] MEDS: SODIUM BICARBONATE 650 MG TAB PO SCH (08:14)
[2019-10-13] MEDS: METOPROLOL SUCCINATE 25 MG TAB XL PO SCH (08:14)
[2019-10-13] MEDS: GABAPENTIN 300 MG CAP PO SCH (08:15)
[2019-10-13] MEDS: NIFEDIPINE CR 30 MG TAB PO SCH (08:15)
[2019-10-13] MEDS: HYDRALAZINE HCL 100 MG TABLET PO SCH (08:16)
[2019-10-13 08:20] VITALS: BP 159/71
== END 2019-10-13 10:30 | disposition home or self-care (01) | DRG 854 ==
LOC: ER 22:43 → ERHOLD 23:22 → MED/SURG3 10-08 11:13
PROVIDERS: ADMIT Internal Medicine; ATTEND Internal Medicine
PROC: 0Y6Q0Z2 Detachment at Left 1st Toe, Mid, Open Approach (ICD-10-PCS; principal; 2019-10-11 13:25)
DX: A41.9 Sepsis, unspecified organism (principal); E11.52 Type 2 diabetes mellitus with diabetic peripheral angiopathy with gangrene; I70.262 Atherosclerosis of native arteries of extremities with gangrene, left leg; N17.9 Acute kidney failure, unspecified; N18.4 Chronic kidney disease, stage 4 (severe); M86.8X7 Other osteomyelitis, ankle and foot; L97.529 Non-pressure chronic ulcer of other part of left foot with unspecified severity; E66.01 Morbid (severe) obesity due to excess calories; Z68.30 Body mass index [BMI] 30.0-30.9, adult; Z91.19 Patient's noncompliance with other medical treatment and regimen; E11.42 Type 2 diabetes mellitus with diabetic polyneuropathy; Z79.84 Long term (current) use of oral hypoglycemic drugs; E11.22 Type 2 diabetes mellitus with diabetic chronic kidney disease; E11.69 Type 2 diabetes mellitus with other specified complication; E78.5 Hyperlipidemia, unspecified; Z83.3 Family history of diabetes mellitus; Z82.49 Family history of ischemic heart disease and other diseases of the circulatory system; F17.210 Nicotine dependence, cigarettes, uncomplicated; I12.9 Hypertensive chronic kidney disease with stage 1 through stage 4 chronic kidney disease, or unspecified chronic kidney disease
CPT/HCPCS: 36415; 74176; 76770; 80048; 80053; 80061; 82948; 83036; 83605; 84145; 85025; 87040; 87045; 87071; 87075; 87205; 87493; 88304; 88305; 88311; 93005; 93926; 96372; 99284; J0692; J1650; J2001; J2250; J2270; J2405; J2543; J3010; J3370; J7030; J7050

== ENCOUNTER 2020-08-04 19:05 | Inpatient (IN) | payer SELFPAY ==
[~2020-08-04] VITALS: Ht 172.7 cm; Wt 111.6 kg
[~2020-08-04 19:05] MED LIST changes: +AUGMENTIN 875-1 EACH PO; +BUMETANIDE1 MG PO; +HYDRALAZINE HCL25 MG PO; +LANTUS 3ML100 UNITS/ SQ; +METOPROLOL SUCC25 MG PO; +MUPIROCIN22 GM TOP; +TRADJENTA5 MG PO
[2020-08-04] MEDS ORDERED: LIDOCAINE JELLY 2% 10ML URO-JET TOP ONE (19:30)
[2020-08-04] MEDS ORDERED: MORPHINE SULFATE 2 MG/ML SYR 1ML IV STA (19:39)
[2020-08-04] MEDS ORDERED: ONDANSETRON HCL INJ 2MG/ML 2ML 2 MG/ML VIAL IV STA (19:39)
[2020-08-04 19:50] LABS: BASOPHILS % 0.3 % (0.0-1.0); EOSINOPHILS # (AUTO) 0.2 (0.0-0.4); EOSINOPHILS % 1.7 % (0.0-6.0); HEMATOCRIT 21.8 % (38.2-49.6); LYMPHOCYTES # (AUTO) 0.6 (1.0-3.2); LYMPHOCYTES % 4.8 % (18.0-39.1); MEAN CORPUSCULAR HEMOGLOBIN 30.5 pg (28-32); MEAN CORPUSCULAR HGB CONC 31.2 g/dL (31-35); MEAN CORPUSCULAR VOLUME 97.8 fL (81-99); MONOCYTES % 7.7 % (4.4-11.3); NEUTROPHILS # (AUTO) 11.1 (2.1-6.9); PLATELET COUNT 201 x10e3/uL (140-360); RED BLOOD COUNT 2.23 x10e6/uL (4.3-5.7); RED CELL DISTRIBUTION WIDTH 14.4 % (11.7-14.4)
[2020-08-04] MEDS ORDERED: MORPHINE SULFATE INJ 4 MG/ML INJ 1ML ONE (19:50)
[2020-08-04 19:54] LABS: HEMOGLOBIN 6.8 g/dL (14.0-18.0)
[2020-08-04 19:56] LABS: BILIRUBIN,URINE NEGATIVE (NEGATIVE); CLARITY,URINE HAZY (CLEAR); COLOR,URINE YELLOW (YELLOW); KETONES,URINE NEGATIVE (NEGATIVE); LEUKOCYTE ESTERASE ,URINE NEGATIVE (NEGATIVE); NITRITE,URINE NEGATIVE (NEGATIVE); PROTEIN,URINE DIPSTICK >=300 (NEGATIVE); URINE UROBILINOGEN 0.2 mg/dL (0.2 - 1)
[2020-08-04 19:58] LABS: AMORPHOUS SEDIMENT,URINE FEW (FEW); BACTERIA,URINE MODERATE /HPF; EPITHELIAL CELLS,URINE FEW /LPF; RBC,URINE 21-50 /HPF (0-5)
[2020-08-04 20:09] LABS: ALBUMIN 3.3 g/dL (3.5-5.0); ALBUMIN/GLOBULIN RATIO 0.7 (0.8-2.0); ANION GAP 19.1 mmol/L (8-16); CALCIUM 7.4 mg/dL (8.4-10.2); CREATININE, SERUM 12.22 mg/dL (0.72-1.25)
[2020-08-04 20:20] LABS: POTASSIUM 6.1 mmol/L (3.5-5.1)
[2020-08-04] MEDS ORDERED: DEXTROSE 50% SYRINGE 50 ML IV STA (20:20)
[2020-08-04] MEDS ORDERED: SODIUM BICARBONATE 8.4% INJ 50 ML SYR IV STA (20:20)
[2020-08-04 20:21] LABS: EOSINOPHILS % (MANUAL) 1 % (0-7); LYMPHOCYTES % (MANUAL) 5 % (19-48); MONOCYTES % (MANUAL) 12 % (3.4-9.0); NEUTROPHILS % (MANUAL) 82 % (40-74)
[2020-08-04 20:22] LABS: PLATELET ESTIMATE ADEQUATE; PLATELET MORPHOLOGY COMMENT NORMAL
[2020-08-04] MEDS ORDERED: INSULIN REGULAR, HUMAN 100 UNIT/1 ML 3ML VIAL IV ONE (20:30)
[2020-08-04] MEDS ORDERED: CALCIUM GLUCONATE 10% INJ 13.95 MEQ in SODIUM CHLORIDE 0.9% 100 ML 100 ML IV ONE (20:30)
[2020-08-04] MEDS ORDERED: SOD POLYSTYRENE SULFONATE SUSP 15 GM/60 ML BTL PO ONE (20:30)
[2020-08-04 20:37] LABS: INR 1.15; PROTHROMBIN TIME 15.3 seconds (11.9-14.5)
[2020-08-04 20:38] LABS: PARTIAL THROMBOPLASTIN TIME 41.7 seconds (23.8-35.5)
[2020-08-04] MEDS ORDERED: CALCIUM GLUCONATE 10% INJ 0.465 MEQ/ML VIAL ONE (20:51)
[2020-08-04 20:53] LABS: CREATINE KINASE MB 7.2 ng/mL (0-5.0)
[2020-08-04] MEDS ORDERED: SODIUM CHLORIDE 0.9% 100 ML ONE (20:53)
[2020-08-04] MEDS ORDERED: ONDANSETRON HCL INJ 2MG/ML 2ML 2 MG/ML VIAL IV PRN (21:15)
[2020-08-04] MEDS ORDERED: SODIUM CHLORIDE FLUSH 10 ML SYR INJ PRN (21:15)
[2020-08-04] MEDS ORDERED: ASPIRIN 81 MG CHEW TAB PO ONE (21:15)
[2020-08-04] MEDS ORDERED: MORPHINE SULFATE INJ 4 MG/ML INJ 1ML IV PRN (22:15)
[2020-08-04] MEDS ORDERED: RENAGEL800 MG PO (23:09)
[2020-08-04] MEDS ORDERED: PROCARDIA XL30 MG (23:09)
[2020-08-04] MEDS ORDERED: ATORVASTATIN CA20 MG PO (23:09)
[2020-08-04] MEDS ORDERED: SODIUM BICARBO650 MG PO (23:09)
[2020-08-04] MEDS ORDERED: FUROSEMIDE INJ 10 MG/ML 4 ML VIAL IV ONE (23:15)
[2020-08-05] VITALS (11 sets, daily range): BP systolic 132–164; BP diastolic 70–91
[2020-08-05 01:04] LABS: CREATINE KINASE MB 6.5 ng/mL (0-5.0)
[2020-08-05] MEDS ORDERED: MORPHINE SULFATE 2 MG/ML SYR 1ML IV ONE (01:30)
[2020-08-05] MEDS ORDERED: NALOXONE HCL INJ 0.4 MG/ML AMP ONE ×3 (04:19→04:27)
[2020-08-05] MEDS ORDERED: HYDRALAZINE HCL 20 MG/ML VIAL IV PRN (04:30)
[2020-08-05 05:51] LABS: BASOPHILS % 0.3 % (0.0-1.0); EOSINOPHILS # (AUTO) 0.1 (0.0-0.4); EOSINOPHILS % 0.7 % (0.0-6.0); HEMATOCRIT 22.6 % (38.2-49.6); LYMPHOCYTES # (AUTO) 0.5 (1.0-3.2); LYMPHOCYTES % 3.8 % (18.0-39.1); MEAN CORPUSCULAR HEMOGLOBIN 31.8 pg (28-32); MEAN CORPUSCULAR VOLUME 102.7 fL (81-99); MONOCYTES # (AUTO) 0.8 (0.2-0.8); MONOCYTES % 6.5 % (4.4-11.3); NEUTROPHILS # (AUTO) 10.7 (2.1-6.9); PLATELET COUNT 172 x10e3/uL (140-360); RED CELL DISTRIBUTION WIDTH 14.2 % (11.7-14.4)
[2020-08-05 06:20] LABS: CREATININE, SERUM 12.55 mg/dL (0.72-1.25)
[2020-08-05 06:32] LABS: CALCIUM 7.6 mg/dL (8.4-10.2)
[2020-08-05 06:40] LABS: ALBUMIN 3.2 g/dL (3.5-5.0); ALBUMIN/GLOBULIN RATIO 0.7 (0.8-2.0); ANION GAP 19.5 mmol/L (8-16)
[2020-08-05 06:51] LABS: POTASSIUM 6.5 mmol/L (3.5-5.1)
[2020-08-05 07:25] LABS: MAGNESIUM 2.2 MG/DL (1.3-2.1); PHOSPHORUS 10.3 MG/DL (2.3-4.7)
[2020-08-05] MEDS: INSULIN REGULAR, HUMAN 100 UNIT/1 ML 3ML VIAL SQ SCH ×4 (07:30→21:00)
[2020-08-05 07:45] LABS: THYROID STIMULATING HORMONE 5.713 uIU/mL (0.350-4.940)
[2020-08-05] MEDS ORDERED: FAMOTIDINE 20 MG/2 ML VIAL IV SCH (09:00)
[2020-08-05] MEDS ORDERED: FENTANYL CITRATE/PF 100MCG/2 ML INJ ONE (09:04)
[2020-08-05] MEDS ORDERED: MIDAZOLAM HCL 2 MG/2 ML VIAL ONE (09:04)
[2020-08-05] MEDS ORDERED: HEPARIN SOD (PORCINE) 1000 UNIT/ML SDV ONE (09:04)
[2020-08-05] MEDS ORDERED: CEFAZOLIN SOD 1 GM/NS 50ML 50 ML IV ONE (09:09)
[2020-08-05] MEDS ORDERED: DEXTROSE 50% SYRINGE 50 ML IV STA (09:17)
[2020-08-05] MEDS ORDERED: SOD POLYSTYRENE SULFONATE SUSP 15 GM/60 ML BTL PO ONE (09:45)
[2020-08-05] MEDS ORDERED: INSULIN REGULAR, HUMAN 100 UNIT/1 ML 3ML VIAL IV ONE (09:45)
[2020-08-05] MEDS ORDERED: SODIUM CHLORIDE 0.9% 250ML 250 ML IV SCH (10:00)
[2020-08-05] MEDS ORDERED: CALCIUM GLUCONATE 10% INJ 4.65 MEQ in SODIUM CHLORIDE 0.9% 50ML 50 ML IV ONE (10:00)
[2020-08-05] MEDS ORDERED: SODIUM CHLORIDE 0.9% 250ML 250 ML ONE ×3 (10:02→12:56)
[2020-08-05] MEDS ORDERED: LIDOCAINE HCL 1% LOCAL INJ 20 ML VIAL ONE (10:02)
[2020-08-05] MEDS ORDERED: HEPARIN SOD (PORCINE) 1000 UNIT/ML SDV IV PRN (11:00)
[2020-08-05] MEDS ORDERED: MANNITOL 25% 12.5GM/50 ML VIAL IV PRN (11:00)
[2020-08-05] MEDS ORDERED: SODIUM CHLORIDE 0.9% 1000ML 2,000 ML IV PRN (11:00)
[2020-08-05] MEDS ORDERED: SODIUM CHLORIDE 0.9% 1000ML 2,000 ML ONE (11:04)
[2020-08-05] MEDS ORDERED: ACETAMINOPHEN 325 MG TAB PO PRN (13:15)
[2020-08-05] MEDS: CEFTRIAXONE SOD 1 GM/NS 50 ML 50 ML IV SCH (14:00)
[2020-08-05 14:20] LABS: % IRON SATURATION 14 % (15-50); IRON 33 ug/dL (65-175); TOTAL IRON BINDING CAPACITY 244 ug/dL (261-478); TRANSFERRIN 174 mg/dL (174-364)
[2020-08-05] MEDS: DEXTROSE 50% SYRINGE 50 ML IV PRN ×2 (14:50→14:55)
[2020-08-05] MEDS: SODIUM BICARBONATE 650 MG TAB PO SCH ×2 (15:00→22:00)
[2020-08-05] MEDS ORDERED: GABAPENTIN 300 MG CAP PO SCH (17:00)
[2020-08-05] MEDS ORDERED: NON-FORMULARY MEDICATION (Insulin Glargine (Lantus 3ML Pen) 15 UNITS) SQ SCH (17:00)
[2020-08-05] MEDS: SEVELAMER CARBONATE 800 MG TAB PO SCH (17:00)
[2020-08-05] MEDS: INSULIN GLARGINE 100 UNITS/ML VIAL SQ SCH (17:00)
[2020-08-05] MEDS: ACETAMINOPHEN/CODEINE 300MG - 30MG TAB PO PRN (17:31)
[2020-08-05 19:06] LABS: BASOPHILS % 0.3 % (0.0-1.0); EOSINOPHILS # (AUTO) 0.1 (0.0-0.4); EOSINOPHILS % 0.7 % (0.0-6.0); HEMATOCRIT 26.5 % (38.2-49.6); HEMOGLOBIN 8.5 g/dL (14.0-18.0); LYMPHOCYTES # (AUTO) 0.4 (1.0-3.2); LYMPHOCYTES % 3.4 % (18.0-39.1); MEAN CORPUSCULAR HEMOGLOBIN 30.7 pg (28-32); MEAN CORPUSCULAR HGB CONC 32.1 g/dL (31-35); MEAN CORPUSCULAR VOLUME 95.7 fL (81-99); MONOCYTES # (AUTO) 0.6 (0.2-0.8); MONOCYTES % 5.5 % (4.4-11.3); NEUTROPHILS # (AUTO) 10.4 (2.1-6.9); NEUTROPHILS % 89.8 % (38.7-80.0); PLATELET COUNT 206 x10e3/uL (140-360); RED BLOOD COUNT 2.77 x10e6/uL (4.3-5.7); RED CELL DISTRIBUTION WIDTH 14.6 % (11.7-14.4)
[2020-08-05 19:22] LABS: CALCIUM 7.9 mg/dL (8.4-10.2); CREATININE, SERUM 9.15 mg/dL (0.72-1.25)
[2020-08-05] MEDS ORDERED: ATORVASTATIN 20 MG TAB PO SCH (21:00)
[2020-08-05] MEDS: ATORVASTATIN 40 MG TAB PO SCH (22:00)
[2020-08-06] VITALS (8 sets, daily range): BP systolic 146–187; BP diastolic 70–82
[2020-08-06] MEDS: LEVOTHYROXINE SODIUM 25 MCG TABLET PO SCH (05:20)
[2020-08-06] MEDS: ACETAMINOPHEN/CODEINE 300MG - 30MG TAB PO PRN ×2 (05:20→12:10)
[2020-08-06 05:58] LABS: BASOPHILS % 0.4 % (0.0-1.0); EOSINOPHILS # (AUTO) 0.4 (0.0-0.4); EOSINOPHILS % 4.1 % (0.0-6.0); HEMATOCRIT 26.8 % (38.2-49.6); HEMOGLOBIN 8.8 g/dL (14.0-18.0); LYMPHOCYTES # (AUTO) 0.8 (1.0-3.2); LYMPHOCYTES % 7.6 % (18.0-39.1); MEAN CORPUSCULAR HEMOGLOBIN 31.5 pg (28-32); MEAN CORPUSCULAR HGB CONC 32.8 g/dL (31-35); MEAN CORPUSCULAR VOLUME 96.1 fL (81-99); MONOCYTES % 9.9 % (4.4-11.3); NEUTROPHILS # (AUTO) 8.1 (2.1-6.9); NEUTROPHILS % 77.6 % (38.7-80.0); PLATELET COUNT 183 x10e3/uL (140-360); RED BLOOD COUNT 2.79 x10e6/uL (4.3-5.7)
[2020-08-06] MEDS ORDERED: FAMOTIDINE 20 MG/2 ML VIAL IV SCH (06:00)
[2020-08-06 06:28] LABS: ALBUMIN/GLOBULIN RATIO 0.7 (0.8-2.0); ANION GAP 18.5 mmol/L (8-16); CALCIUM 7.6 mg/dL (8.4-10.2); CREATININE, SERUM 9.28 mg/dL (0.72-1.25); POTASSIUM 4.5 mmol/L (3.5-5.1)
[2020-08-06] MEDS: INSULIN REGULAR, HUMAN 100 UNIT/1 ML 3ML VIAL SQ SCH ×4 (07:30→19:43)
[2020-08-06] MEDS: SODIUM BICARBONATE 650 MG TAB PO SCH ×3 (08:13→20:07)
[2020-08-06] MEDS: NIFEDIPINE CR 30 MG TAB PO SCH (08:13)
[2020-08-06] MEDS: SEVELAMER CARBONATE 800 MG TAB PO SCH ×3 (08:13→17:00)
[2020-08-06] MEDS: INSULIN GLARGINE 100 UNITS/ML VIAL SQ SCH ×2 (08:16→17:00)
[2020-08-06] MEDS: CEFTRIAXONE SOD 1 GM/NS 50 ML 50 ML IV SCH (15:52)
[2020-08-06] MEDS ORDERED: ONDANSETRON HCL 4 MG ORAL DISINTEGRATING TAB PO PRN (17:00)
[2020-08-06] MEDS: HYDRALAZINE HCL 20 MG/ML VIAL IV PRN (20:07)
[2020-08-06] MEDS: ATORVASTATIN 40 MG TAB PO SCH (20:07)
[2020-08-07] VITALS (9 sets, daily range): BP systolic 156–198; BP diastolic 66–81
[2020-08-07] MEDS: ACETAMINOPHEN/CODEINE 300MG - 30MG TAB PO PRN ×2 (03:40→21:25)
[2020-08-07] MEDS: LEVOTHYROXINE SODIUM 25 MCG TABLET PO SCH (06:00)
[2020-08-07] MEDS: INSULIN REGULAR, HUMAN 100 UNIT/1 ML 3ML VIAL SQ SCH ×4 (07:30→20:01)
[2020-08-07] MEDS: INSULIN GLARGINE 100 UNITS/ML VIAL SQ SCH ×2 (09:00→17:34)
[2020-08-07] MEDS: SEVELAMER CARBONATE 800 MG TAB PO SCH ×3 (09:03→17:34)
[2020-08-07] MEDS: FAMOTIDINE 20 MG TAB PO SCH (09:03)
[2020-08-07] MEDS: SODIUM BICARBONATE 650 MG TAB PO SCH ×3 (09:03→21:04)
[2020-08-07] MEDS: NIFEDIPINE CR 30 MG TAB PO SCH (09:03)
[2020-08-07 10:31] LABS: BASOPHILS # (AUTO) 0.1 (0.0-0.1); BASOPHILS % 0.6 % (0.0-1.0); EOSINOPHILS # (AUTO) 0.4 (0.0-0.4); EOSINOPHILS % 4.1 % (0.0-6.0); HEMATOCRIT 26.7 % (38.2-49.6); HEMOGLOBIN 8.6 g/dL (14.0-18.0); LYMPHOCYTES # (AUTO) 1.2 (1.0-3.2); LYMPHOCYTES % 11.4 % (18.0-39.1); MEAN CORPUSCULAR HEMOGLOBIN 30.6 pg (28-32); MEAN CORPUSCULAR HGB CONC 32.2 g/dL (31-35); MONOCYTES # (AUTO) 1.1 (0.2-0.8); NEUTROPHILS # (AUTO) 7.4 (2.1-6.9); NEUTROPHILS % 72.5 % (38.7-80.0); PLATELET COUNT 215 x10e3/uL (140-360); RED BLOOD COUNT 2.81 x10e6/uL (4.3-5.7); RED CELL DISTRIBUTION WIDTH 14.6 % (11.7-14.4)
[2020-08-07 11:23] LABS: ANION GAP 14.9 mmol/L (8-16); CALCIUM 7.5 mg/dL (8.4-10.2); CREATININE, SERUM 7.29 mg/dL (0.72-1.25); POTASSIUM 3.9 mmol/L (3.5-5.1)
[2020-08-07] MEDS: CEFTRIAXONE SOD 1 GM/NS 50 ML 50 ML IV SCH (17:34)
[2020-08-07] MEDS: HYDRALAZINE HCL 20 MG/ML VIAL IV PRN ×2 (18:39→23:55)
[2020-08-07] MEDS: ATORVASTATIN 40 MG TAB PO SCH (21:04)
[2020-08-07] MEDS: METOCLOPRAMIDE HCL 10 MG/2ML VIAL IV SCH (23:41)
[2020-08-08] VITALS (8 sets, daily range): BP systolic 160–193; BP diastolic 69–79
[2020-08-08] MEDS: LEVOTHYROXINE SODIUM 25 MCG TABLET PO SCH (05:45)
[2020-08-08] MEDS: METOCLOPRAMIDE HCL 10 MG/2ML VIAL IV SCH ×4 (06:04→23:32)
[2020-08-08] MEDS: HYDRALAZINE HCL 20 MG/ML VIAL IV PRN ×2 (06:05→21:16)
[2020-08-08 06:29] LABS: AMYLASE 48 U/L (25-125); LIPASE 17 U/L (8-78)
[2020-08-08] MEDS: FAMOTIDINE 20 MG TAB PO SCH (07:30)
[2020-08-08] MEDS: INSULIN REGULAR, HUMAN 100 UNIT/1 ML 3ML VIAL SQ SCH ×4 (07:30→20:04)
[2020-08-08] MEDS: SEVELAMER CARBONATE 800 MG TAB PO SCH ×3 (07:43→18:05)
[2020-08-08] MEDS: DICYCLOMINE HCL 10 MG CAP PO SCH ×3 (09:00→21:39)
[2020-08-08] MEDS: NIFEDIPINE CR 30 MG TAB PO SCH (09:00)
[2020-08-08] MEDS: INSULIN GLARGINE 100 UNITS/ML VIAL SQ SCH ×2 (09:00→18:06)
[2020-08-08] MEDS ORDERED: IRON SUCROSE 100 MG in SODIUM CHLORIDE 0.9% 100 ML 100 ML IV SCH (09:00)
[2020-08-08] MEDS: SODIUM BICARBONATE 650 MG TAB PO SCH ×3 (09:00→21:39)
[2020-08-08] MEDS: ASPIRIN 81 MG CHEW TAB PO SCH (09:00)
[2020-08-08] MEDS ORDERED: HEPARIN SOD (PORCINE) 1000 UNIT/ML SDV ONE (10:17)
[2020-08-08] MEDS ORDERED: FENTANYL CITRATE/PF 100MCG/2 ML INJ ONE (10:17)
[2020-08-08] MEDS ORDERED: MIDAZOLAM HCL 2 MG/2 ML VIAL ONE (10:17)
[2020-08-08] MEDS ORDERED: LIDOCAINE HCL 1% LOCAL INJ 20 ML VIAL ONE (10:22)
[2020-08-08] MEDS ORDERED: SODIUM CHLORIDE 0.9% 250ML 250 ML ONE (10:22)
[2020-08-08] MEDS: CEFTRIAXONE SOD 1 GM/NS 50 ML 50 ML IV SCH (14:00)
[2020-08-08] MEDS: ACETAMINOPHEN/CODEINE 300MG - 30MG TAB PO PRN (21:16)
[2020-08-08] MEDS: ATORVASTATIN 40 MG TAB PO SCH (21:39)
[2020-08-09] VITALS (8 sets, daily range): BP systolic 170–209; BP diastolic 75–95
[2020-08-09] MEDS: HYDRALAZINE HCL 20 MG/ML VIAL IV PRN ×3 (04:28→21:32)
[2020-08-09] MEDS: METOCLOPRAMIDE HCL 10 MG/2ML VIAL IV SCH ×3 (05:07→17:41)
[2020-08-09] MEDS: LEVOTHYROXINE SODIUM 25 MCG TABLET PO SCH (05:07)
[2020-08-09 06:18] LABS: BASOPHILS # (AUTO) 0.1 (0.0-0.1); BASOPHILS % 0.5 % (0.0-1.0); EOSINOPHILS # (AUTO) 0.4 (0.0-0.4); EOSINOPHILS % 3.2 % (0.0-6.0); HEMATOCRIT 28.6 % (38.2-49.6); HEMOGLOBIN 9.2 g/dL (14.0-18.0); LYMPHOCYTES # (AUTO) 0.8 (1.0-3.2); LYMPHOCYTES % 6.9 % (18.0-39.1); MEAN CORPUSCULAR HEMOGLOBIN 30.2 pg (28-32); MEAN CORPUSCULAR HGB CONC 32.2 g/dL (31-35); MEAN CORPUSCULAR VOLUME 93.8 fL (81-99); MONOCYTES # (AUTO) 1.1 (0.2-0.8); MONOCYTES % 8.9 % (4.4-11.3); NEUTROPHILS # (AUTO) 9.7 (2.1-6.9); NEUTROPHILS % 80.3 % (38.7-80.0); PLATELET COUNT 248 x10e3/uL (140-360); RED BLOOD COUNT 3.05 x10e6/uL (4.3-5.7); RED CELL DISTRIBUTION WIDTH 13.6 % (11.7-14.4)
[2020-08-09 06:43] LABS: ANION GAP 14.6 mmol/L (8-16); CREATININE, SERUM 6.12 mg/dL (0.72-1.25); MAGNESIUM 1.8 MG/DL (1.3-2.1); PHOSPHORUS 5.3 MG/DL (2.3-4.7); POTASSIUM 3.6 mmol/L (3.5-5.1)
[2020-08-09] MEDS: INSULIN REGULAR, HUMAN 100 UNIT/1 ML 3ML VIAL SQ SCH ×4 (07:30→21:24)
[2020-08-09] MEDS: FAMOTIDINE 20 MG TAB PO SCH (07:57)
[2020-08-09] MEDS: SEVELAMER CARBONATE 800 MG TAB PO SCH ×3 (07:57→17:41)
[2020-08-09] MEDS: ASPIRIN 81 MG CHEW TAB PO SCH (08:00)
[2020-08-09] MEDS: DICYCLOMINE HCL 10 MG CAP PO SCH ×4 (08:00→21:23)
[2020-08-09] MEDS: SODIUM BICARBONATE 650 MG TAB PO SCH ×3 (08:00→21:24)
[2020-08-09] MEDS: NIFEDIPINE CR 30 MG TAB PO SCH ×3 (08:01→21:24)
[2020-08-09] MEDS: INSULIN GLARGINE 100 UNITS/ML VIAL SQ SCH ×2 (08:02→17:00)
[2020-08-09] MEDS ORDERED: HEPARIN SOD (PORCINE) 1000 UNIT/ML SDV IV PRN (11:30)
[2020-08-09] MEDS: IRON SUCROSE 100 MG in SODIUM CHLORIDE 0.9% 100 ML 100 ML IV SCH (12:30)
[2020-08-09] MEDS: CEFTRIAXONE SOD 1 GM/NS 50 ML 50 ML IV SCH (15:00)
[2020-08-09] MEDS: DOCUSATE SODIUM 100 MG CAP PO SCH (18:28)
[2020-08-09] MEDS: ATORVASTATIN 40 MG TAB PO SCH (21:23)
[2020-08-10] VITALS: BP 186/73
[2020-08-10] MEDS: METOCLOPRAMIDE HCL 10 MG/2ML VIAL IV SCH ×4 (02:03→17:30)
[2020-08-10] MEDS: HYDRALAZINE HCL 20 MG/ML VIAL IV PRN (02:04)
[2020-08-10 04:00] VITALS: BP 156/48
[2020-08-10] MEDS: LEVOTHYROXINE SODIUM 25 MCG TABLET PO SCH (06:00)
[2020-08-10] MEDS: INSULIN REGULAR, HUMAN 100 UNIT/1 ML 3ML VIAL SQ SCH ×3 (07:30→17:30)
[2020-08-10] MEDS: SEVELAMER CARBONATE 800 MG TAB PO SCH ×3 (07:31→17:30)
[2020-08-10] MEDS: FAMOTIDINE 20 MG TAB PO SCH (07:31)
[2020-08-10 08:19] VITALS: BP 173/67
[2020-08-10] MEDS: NIFEDIPINE CR 30 MG TAB PO SCH (08:40)
[2020-08-10] MEDS: ASPIRIN 81 MG CHEW TAB PO SCH (08:40)
[2020-08-10] MEDS: SODIUM BICARBONATE 650 MG TAB PO SCH ×2 (08:40→14:28)
[2020-08-10] MEDS: DOCUSATE SODIUM 100 MG CAP PO SCH ×2 (08:40→17:30)
[2020-08-10] MEDS: DICYCLOMINE HCL 10 MG CAP PO SCH ×2 (08:58→14:28)
[2020-08-10 09:00] VITALS: BP 173/67
[2020-08-10] MEDS ORDERED: INSULIN GLARGINE 100 UNITS/ML VIAL SQ SCH (09:00)
[2020-08-10] MEDS ORDERED: LISINOPRIL 20 MG TAB PO SCH (09:00)
[2020-08-10 12:13] VITALS: BP 170/63
[2020-08-10] MEDS: IRON SUCROSE 100 MG in SODIUM CHLORIDE 0.9% 100 ML 100 ML IV SCH (12:52)
[2020-08-10] MEDS: CEFTRIAXONE SOD 1 GM/NS 50 ML 50 ML IV SCH (15:00)
[2020-08-10 16:39] VITALS: BP 154/68
[2020-08-10] MEDS ORDERED: LEVOTHYROXINE25 MCG PO (19:28)
[2020-08-10] MEDS ORDERED: LISINOPRIL20 MG PO (19:28)
== END 2020-08-10 20:20 | disposition home or self-care (01) | DRG 673 ==
LOC: ER 19:11 → ERHOLD 21:25 → MED/SURG2 23:08
PROVIDERS: ADMIT Internal Medicine; ATTEND Internal Medicine
PROC: 02HV33Z Insertion of Infusion Device into Superior Vena Cava, Percutaneous Approach (ICD-10-PCS; principal; 2020-08-04)
PROC: B548ZZA Ultrasonography of Superior Vena Cava, Guidance (ICD-10-PCS; 2020-08-04)
PROC: 30233N1 Transfusion of Nonautologous Red Blood Cells into Peripheral Vein, Percutaneous Approach (ICD-10-PCS; 2020-08-05)
PROC: 5A1D70Z Performance of Urinary Filtration, Intermittent, Less than 6 Hours Per Day (ICD-10-PCS; 2020-08-05)
PROC: 5A1D70Z Performance of Urinary Filtration, Intermittent, Less than 6 Hours Per Day (ICD-10-PCS; 2020-08-06)
PROC: 5A1D70Z Performance of Urinary Filtration, Intermittent, Less than 6 Hours Per Day (ICD-10-PCS; 2020-08-07)
PROC: 0JH63XZ Insertion of Tunneled Vascular Access Device into Chest Subcutaneous Tissue and Fascia, Percutaneous Approach (ICD-10-PCS; 2020-08-08)
PROC: 02PY33Z Removal of Infusion Device from Great Vessel, Percutaneous Approach (ICD-10-PCS; 2020-08-08)
PROC: 02HV33Z Insertion of Infusion Device into Superior Vena Cava, Percutaneous Approach (ICD-10-PCS; 2020-08-08)
PROC: 5A1D70Z Performance of Urinary Filtration, Intermittent, Less than 6 Hours Per Day (ICD-10-PCS; 2020-08-09)
DX: N17.9 Acute kidney failure, unspecified (principal); I63.81 Other cerebral infarction due to occlusion or stenosis of small artery; I50.33 Acute on chronic diastolic (congestive) heart failure; E87.2 Acidosis; I13.2 Hypertensive heart and chronic kidney disease with heart failure and with stage 5 chronic kidney disease, or end stage renal disease; E11.22 Type 2 diabetes mellitus with diabetic chronic kidney disease; E78.5 Hyperlipidemia, unspecified; E11.42 Type 2 diabetes mellitus with diabetic polyneuropathy; E87.5 Hyperkalemia; Z89.412 Acquired absence of left great toe; Z83.3 Family history of diabetes mellitus; Z72.0 Tobacco use; D63.1 Anemia in chronic kidney disease; E03.9 Hypothyroidism, unspecified; E11.319 Type 2 diabetes mellitus with unspecified diabetic retinopathy without macular edema; E66.9 Obesity, unspecified; Z68.37 Body mass index [BMI] 37.0-37.9, adult; N18.6 End stage renal disease; R41.82 Altered mental status, unspecified; T40.605A Adverse effect of unspecified narcotics, initial encounter; Z11.59 Encounter for screening for other viral diseases; Z79.4 Long term (current) use of insulin
CPT/HCPCS: 36415; 36556; 36558; 51700; 70450; 70551; 71045; 74470; 76770; 76937; 77001; 80048; 80053; 81001; 81241; 81400; 82150; 82270; 82550; 82553; 82607; 82728; 82746; 82948; 83036; 83540; 83690; 83735; 83880; 84100; 84132; 84443; 84466; 84484; 85025; 85303; 85306; 85610; 85730; 86039; 86592; 86704; 86705; 86706; 86850; 86900; 86920; 87086; 87340; 90962; 93005; 93306; 97139; 99152; 99251; 99284; C1769; C1892; J0360; J0610; J0690; J0696; J1644; J1756; J1815; J1817; J1940; J2001; J2150; J2250; J2270; J2310; J2405; J2765; J3010; J7030; J7050; J7799; P9016; U0002

== ENCOUNTER 2020-09-09 14:36 | Inpatient (IN) | payer SELFPAY ==
[~2020-09-09] VITALS: Ht 172.7 cm; Wt 93.4 kg
[~2020-09-09 14:36] MED LIST changes: +ATORVASTATIN CA20 MG PO; +LEVOTHYROXINE25 MCG PO; +LISINOPRIL20 MG PO; +PROCARDIA XL30 MG; +RENAGEL800 MG PO; +SODIUM BICARBO650 MG PO
[2020-09-09 16:59] LABS: BASOPHILS # (AUTO) 0.1 (0.0-0.1); BASOPHILS % 0.5 % (0.0-1.0); EOSINOPHILS # (AUTO) 0.5 (0.0-0.4); EOSINOPHILS % 3.1 % (0.0-6.0); HEMATOCRIT 31.9 % (38.2-49.6); HEMOGLOBIN 10.3 g/dL (14.0-18.0); LYMPHOCYTES # (AUTO) 1.3 (1.0-3.2); LYMPHOCYTES % 9.1 % (18.0-39.1); MEAN CORPUSCULAR HEMOGLOBIN 29.7 pg (28-32); MEAN CORPUSCULAR HGB CONC 32.3 g/dL (31-35); MEAN CORPUSCULAR VOLUME 91.9 fL (81-99); MONOCYTES % 6.7 % (4.4-11.3); NEUTROPHILS # (AUTO) 11.7 (2.1-6.9); NEUTROPHILS % 79.9 % (38.7-80.0); PLATELET COUNT 316 x10e3/uL (140-360); RED BLOOD COUNT 3.47 x10e6/uL (4.3-5.7); RED CELL DISTRIBUTION WIDTH 13.9 % (11.7-14.4)
[2020-09-09 17:17] LABS: ALBUMIN 2.5 g/dL (3.5-5.0); ALBUMIN/GLOBULIN RATIO 0.4 (0.8-2.0); ANION GAP 16.2 mmol/L (8-16); CALCIUM 8.5 mg/dL (8.4-10.2); CREATININE, SERUM 6.32 mg/dL (0.72-1.25); POTASSIUM 4.2 mmol/L (3.5-5.1)
[2020-09-09 17:24] LABS: CREATINE KINASE MB 4.7 ng/mL (0-5.0)
[2020-09-09] MEDS ORDERED: PIPER-TAZ 3.375 GM 50 ML IV STA (17:53)
--- NOTE | 2020-09-09 18:05 | Emergency Department Note ---
History of Present Illnes History of Present Illness Chief Complaint: Genitourinary History of Present Illness This is a 55 year old male arrived to the ED with complaints of testicular pain pain for several weeks. . Chief Complaint Comment PATIENT IN FROM HOME WITH COMPLAINTS OF PENILE AND TESTICULAR PAIN X 3 WEEKS; STATES HAD A CATHETER PLACED 08/04/2020 WHEN HE WAS SEEN FOR RENAL FAILURE. PATIENT STATES HE HAS BEEN ON ABX FOR A BACTERIAL AND A FUNGAL INFECTION. LAST SAW HIS PHYSICIAN ON Wednesday09/02/2020. PATIENT RATES PAIN 08/17, APPEARS UNCOMFORTABLE, AMBULATORY WITHOUT ASSISTANCE Historian: Patient Arrival Mode: Car Onset (how long ago): week(s) Severity: mild Onset quality: gradual Duration (how long): week(s) Timing of current episode: constant Progression: worsening Relieving factors: none Exacerbating factors: none (RASHI STORM DO) Past Medical/Family History Physician Review I have reviewed the patient's past medical and family history. Any updates have been documented here. (RASHI STORM DO) Past Medical History Recent Fever: No Clinical Suspicion of Infectio: No New/Unexplained Change in Ment: No Past Medical History: Hypertension, Diabetes, Hyperlipedemia, Chronic Kidney Disease Other Medical History: NEUROPATHY Past Surgical History: None Other Surgery: BILATERAL LENS REPLACEMENT (35 YEARS OLD) LEFT TOE AMPUTATION (RASHI STORM DO) Recent Fever: No Clinical Suspicion of Infectio: Yes New/Unexplained Change in Ment: No Other Medical History: ESRD Past Surgical History: None (CARLOS A SANCHEZ DO) Social History Smoking Cessation: Never Smoker Alcohol Use: None Any Illegal Drug Use: No (CARLOS A SANCHEZ DO) Other Last Tetanus: UTD (RASHI STORM DO) Review of Systems Review of Systems Constitutional: Reports no symptoms EENTM: Reports no symptoms Cardiovascular: Reports no symptoms Respiratory: Reports no symptoms Gastrointestinal: Reports no symptoms Genitourinary: Reports as per HPI, Reports dysuria, Reports frequency, Reports pain Musculoskeletal: Reports no symptoms Integumentary: Reports no symptoms Neurological: Reports no symptoms Psychological: Reports no symptoms Endocrine: Reports no symptoms Hematological/Lymphatic: Reports no symptoms (RASHI STORM DO) Physical Exam Related Data Allergies: Coded Allergies: No Known Allergies (Unverified , 04/27/14) Triage Vital Signs Vital Signs Date Time Temp Pulse Resp B/P (MAP) Pulse Ox O2 Delivery O2 Flow Rate FiO2 09/09/20 15:01 97.6 75 18 128/73 100 Room Air Vital signs reviewed: Yes (RASHI STORM DO) Physical Exam CONSTITUTIONAL Constitutional: Present well-developed, Present well-nourished HENT HENT: Present normocephalic, Present atraumatic, Present oropharynx clear/moist, Present nose normal HENT L/R: Present left ext ear normal, Present right ext ear normal EYES Eyes: Reports PERRL, Reports conjunctivae normal NECK Neck: Present ROM normal PULMONARY Pulmonary: Present effort normal, Present breath sounds normal CARDIOVASCULAR Cardiovascular: Present regular rhythm, Present heart sounds normal, Present capillary refill normal, Present normal rate GASTROINTESTINAL Abdominal: Present soft, Present nontender, Present bowel sounds normal GENITOURINARY SKIN Skin: Present warm, Present dry MUSCULOSKELETAL Musculoskeletal: Present ROM normal NEUROLOGICAL Neurological: Present alert, Present oriented x 3, Present no gross motor or sensory deficits PSYCHOLOGICAL Psychological: Present mood/affect normal, Present judgement normal (RASHI STORM DO) Genitourinary: Present penis tenderness, Present other (debris glans region with diffuse tenderness of penile shaft) (CARLOS A SANCHEZ DO) Results Laboratory Result Diagram: 09/09/20 1650 09/09/20 1650 Laboratory Laboratory Tests Test 09/09/20 16:50 White Blood Count 14.68 x10e3/uL (4.8-10.8) Red Blood Count 3.47 x10e6/uL (4.3-5.7) Hemoglobin 10.3 g/dL (14.0-18.0) Hematocrit 31.9 % (38.2-49.6) Mean Corpuscular Volume 91.9 fL (81-99) Mean Corpuscular Hemoglobin 29.7 pg (28-32) Mean Corpuscular Hemoglobin Concent 32.3 g/dL (31-35) Red Cell Distribution Width 13.9 % (11.7-14.4) Platelet Count 316 x10e3/uL (140-360) Neutrophils (%) (Auto) 79.9 % (38.7-80.0) Lymphocytes (%) (Auto) 9.1 % (18.0-39.1) Monocytes (%) (Auto) 6.7 % (4.4-11.3) Eosinophils (%) (Auto) 3.1 % (0.0-6.0) Basophils (%) (Auto) 0.5 % (0.0-1.0) Neutrophils # (Auto) 11.7 (2.1-6.9) Lymphocytes # (Auto) 1.3 (1.0-3.2) Monocytes # (Auto) 1.0 (0.2-0.8) Eosinophils # (Auto) 0.5 (0.0-0.4) Basophils # (Auto) 0.1 (0.0-0.1) Absolute Immature Granulocyte (auto 0.10 x10e3/uL (0-0.1) Sodium Level 136 mmol/L (136-145) Potassium Level 4.2 mmol/L (3.5-5.1) Chloride Level 98 mmol/L (98-107) Carbon Dioxide Level 26 mmol/L (22-29) Anion Gap 16.2 mmol/L (8-16) Blood Urea Nitrogen 36 mg/dL (7-26) Creatinine 6.32 mg/dL (0.72-1.25) Estimat Glomerular Filtration Rate 9 ML/MIN (60-) BUN/Creatinine Ratio 6 (6-25) Glucose Level 137 mg/dL (74-118) Calcium Level 8.5 mg/dL (8.4-10.2) Total Bilirubin 0.4 mg/dL (0.2-1.2) Aspartate Amino Transf (AST/SGOT) 45 IU/L (5-34) Alanine Aminotransferase (ALT/SGPT) 39 IU/L (0-55) Alkaline Phosphatase 540 IU/L (40-150) Creatine Kinase 161 IU/L (30-200) Creatine Kinase MB 4.70 ng/mL (0-5.0) Troponin I 0.021 ng/mL (0-0.300) B-Type Natriuretic Peptide 924.9 pg/mL (0-100) Total Protein 8.8 g/dL (6.5-8.1) Albumin 2.5 g/dL (3.5-5.0) Globulin 6.3 g/dL (2.3-3.5) Albumin/Globulin Ratio 0.4 (0.8-2.0) Lab results reviewed: Yes (RASHI STORM, DO) Imaging Imaging results reviewed: Yes Impressions [facility] [address] [address] Patient Name: PRISCILLA ZAMUDIO MR #: [id number] : 1965 Age/Sex: 55/M Req #: [id number] Adm Physician: Ordered by: RASHI STORM DO Report #: [id number] Location: ER Room/Bed: Procedure: [id number] CT/CT ABDOMEN/PELVIS W Exam Date: 09/09/20 Exam Time: 1850 REPORT STATUS: Signed EXAM: CT Abdomen and Pelvis WITH contrast INDICATION: Scrotal pain COMPARISON: Same day scrotal ultrasound. CT of the abdomen/pelvis on 10/08/2019. TECHNIQUE: Abdomen and pelvis were scanned utilizing a multidetector helical scanner from the lung base to the pubic symphysis after administration of IV contrast. Coronal and sagittal reformations were obtained. Routine protocol was performed. Scan was performed when during portal venous phase. IV CONTRAST: 100 mL of Isovue 370 ORAL CONTRAST: None COMPLICATIONS: None RADIATION DOSE: Total DLP: 669 mGy*cm Estimated effective dose: (DLP x 0.015 x size factor) mSv CTDIvol has been reviewed. It is below the limits set by the Radiation Protocol Committee (RPC). Dose modulation, iterative reconstruction, and/or weight based adjustment of the mA/kV was utilized to reduce the radiation dose to as low as reasonably achievable. FINDINGS: LINES and TUBES: None. LOWER THORAX: Unremarkable HEPATOBILIARY: No focal hepatic lesions. No biliary ductal dilation. GALLBLADDER: No radio-opaque stones or sludge. No wall thickening. SPLEEN: No splenomegaly. PANCREAS: No focal masses or ductal dilatation. ADRENALS: No adrenal nodules KIDNEYS/URETERS: Bilateral kidneys have hypoenhancement. No hydronephrosis. No cystic or solid mass lesions. No stones. There is nonspecific perinephric fat stranding bilaterally. GI TRACT: Circumferential wall thickness of the rectum. No abnormal distention, wall thickening, or evidence of bowel obstruction. Appendix is normal. PELVIC ORGANS/BLADDER: Unremarkable. LYMPH NODES: No lymphadenopathy. VESSELS: Scattered mild arterial vascular calcifications. PERITONEUM / RETROPERITONEUM: No free air or fluid. BONES: There are degenerative changes in the spine. SOFT TISSUES: There is scrotal soft tissue edema and redemonstration of multiple penile calcifications. There is a focus of air in the distal penis , likely from recent Beltrán catheterization. There is nonspecific diffuse soft tissue edema of the bilateral upper thigh extending to the midabdomen. Prominent bilateral inguinal lymph nodes unchanged from prior examination. IMPRESSION: 1. Nonspecific scrotal soft tissue edema. Redemonstration of multiple penile calcifications which are unchanged from prior examination. Findings are indeterminate and may be related to ongoing infectious or inflammatory process. Urology consultation should be considered. 2. Hypoenhancing kidneys with nonspecific perinephric fat stranding. Findings are nonspecific but can be suggestive of pyelonephritis and/or medical renal disease. 3. Circumferential wall thickening of the rectum which may be due to underdistention. However, proctitis can have a similar appearance and should be considered. Signed by: Shanae Walls MD on 09/09/2020 8:47 PM Dictated By: SHANAE WALLS MD 46 Transcribed By: KEN on 09/09/202046 COPY TO: RASHI STORM DO~ [address] [place] [address] Patient Name: PRISCILLA ZAMUDIO MR #: [id number] : 1965 Age/Sex: 55/M Req #: [id number] Adm Physician: Ordered by: RASHI STORM DO Report #: [id number] Location: ER Room/Bed: Procedure: [id number] US/US TESTICULAR Exam Date: 09/09/20 Exam Time: 1621 REPORT STATUS: Signed EXAM: Scrotal Ultrasound with Duplex INDICATION: Testicular pain and swelling. COMPARISON: CT abdomen/pelvis on 10/08/2019. TECHNIQUE: Transverse and longitudinal images were obtained of the scrotum with grayscale imaging, color Doppler and spectral waveform analysis. FINDINGS: Right testis: Size: 4.1 x 2.1 x 2.6 cm, normal in size. Echogenicity: Normal Mass/Cysts: None Left testis: Size: 3.8 x 2.0 x 2.7 cm, normal in size. Echogenicity: Normal Mass/Cysts: None Epididymis: The right epididymis measures 1.2 x 1.0 x 0.8 cm and the left measures 1.4 x 1.0 x 0.9 cm. Appearance: Normal in size without increased vascularity. Mass/Cysts: None Extratesticular: Masses: None Hydrocele: None Varicocele: None Others: There are enlarged lymph nodes in the bilateral inguinal area measuring 4.0 x 1.3 x 2.4 cm on the right and 2.5 x 1.0 x 1.5 cm and the left. Morphology demonstrates normal fatty hilum. This finding is similar in appearance when compared to CT of the abdomen/pelvis on 10/08/2019. Doppler: Normal arterial flow to both testes and symmetrical flow on color Doppler evaluation is seen. No evidence of testicular torsion. IMPRESSION: 1. No evidence of testicular torsion. No evidence of epididymoorchitis. 2. Enlarged bilateral inguinal nodes have normal morphology and are unchanged. Signed by: Shanae Walls MD on 09/09/2020 6:51 PM Dictated By: SHANAE WALLS MD 50 Transcribed By: KEN on 09/09/201850 COPY TO: RASHI STORM DO~ (CARLOS A SANCHEZ DO) Procedures 12 Lead ECG Interpretation ECG Interpretation : ECG: ECG 1 Box Finisher: Interpreted by ED physician Prior ECG tracings: reviewed QRS axis: normal ST segments normal: Yes T waves normal: Yes Clinical Impression: normal ECG (RASHI STORM DO) Assessment & Plan Medical Decision Making MDM 55-year-old male arrives the ED with complaints of penile pain, patient really lab work and imaging, Senokot given to Dr. Sanchez for further workup and dispo. (RASHI STORM DO) MDM Diff Dx : sepsis, UTI, kidney infection, fourniere's, balanitis (CARLOS A SANCHEZ DO) Assessment & Plan Final Impression: (1) Complicated UTI (urinary tract infection) (2) Renal failure (3) Balanitis (CARLOS A SANCHEZ DO) Depart Disposition: ADMITTED Last Vital Signs Date Time Temp Pulse Resp B/P (MAP) Pulse Ox O2 Delivery O2 Flow Rate FiO2 09/09/20 15:01 97.6 75 18 128/73 100 Room Air (RASHI STORM DO) Home Meds Active Scripts Lisinopril (PRINAVIL / ZESTRIL) 20 Mg Tablet, 20 MG PO DAILY for 30 Days, 5 Refills Prov:JESIKA BANDA MD 08/10/20 Levothyroxine Sodium (LEVOTHYROXINE SODIUM) 25 Mcg Tablet, 25 MCG PO DAILY@06 for 30 Days, 5 Refills Prov:JESIKA BANDA MD 08/10/20 Reported Medications Nifedipine (PROCARDIA XL) 30 Mg Tab.er.24, 60 MG DAILY, #30 TAB 08/04/20 Atorvastatin Calcium (ATORVASTATIN CALCIUM) 20 Mg Tablet, 80 MG PO HS, #30 TAB 08/04/20 Sevelamer Hcl (RENAGEL) 800 Mg Tablet, 1600 MG PO TID, TAB 08/04/20 Sodium Bicarbonate (SODIUM BICARBONATE) 650 Mg Tablet, 650 MG PO TID 08/04/20 Insulin Glargine (LANTUS 3ML PEN) 100 Units/1 Ml Inj, 15 UNITS SQ BID WITH MEALS 10/08/19 Bumetanide (BUMETANIDE) 1 Mg Tablet, 1 MG PO BID, #30 TAB 10/08/19 Linagliptin (TRADJENTA) 5 Mg Tablet, 5 MG PO DAILY 10/08/19 Gabapentin (GABAPENTIN) 300 Mg Capsule, 600 MG PO BID, #60 CAP 10/04/17 RASHI STORM DO Sep 09, 2020 18:05 CARLOS A SANCHEZ DO Sep 09, 2020 19:59
--- NOTE | 2020-09-09 18:54 | Diagnostic Imaging Report ---
EXAM: Scrotal Ultrasound with Duplex INDICATION: Testicular pain and swelling. COMPARISON: CT abdomen/pelvis on 10/08/2019. TECHNIQUE: Transverse and longitudinal images were obtained of the scrotum with grayscale imaging, color Doppler and spectral waveform analysis. FINDINGS: Right testis: Size: 4.1 x 2.1 x 2.6 cm, normal in size. Echogenicity: Normal Mass/Cysts: None Left testis: Size: 3.8 x 2.0 x 2.7 cm, normal in size. Echogenicity: Normal Mass/Cysts: None Epididymis: The right epididymis measures 1.2 x 1.0 x 0.8 cm and the left measures 1.4 x 1.0 x 0.9 cm. Appearance: Normal in size without increased vascularity. Mass/Cysts: None Extratesticular: Masses: None Hydrocele: None Varicocele: None Others: There are enlarged lymph nodes in the bilateral inguinal area measuring 4.0 x 1.3 x 2.4 cm on the right and 2.5 x 1.0 x 1.5 cm and the left. Morphology demonstrates normal fatty hilum. This finding is similar in appearance when compared to CT of the abdomen/pelvis on 10/08/2019. Doppler: Normal arterial flow to both testes and symmetrical flow on color Doppler evaluation is seen. No evidence of testicular torsion. IMPRESSION: 1. No evidence of testicular torsion. No evidence of epididymoorchitis. 2. Enlarged bilateral inguinal nodes have normal morphology and are unchanged. Signed by: Sebastian Hall MD on 09/09/2020 6:51 PM
[2020-09-09] MEDS ORDERED: IOPAMIDOL 370 MG/ML 200 ML INFUS..BTL INJ ONE (19:02)
[2020-09-09] MEDS ORDERED: SODIUM CHLORIDE 0.9% 50ML 50 ML ONE (19:02)
[2020-09-09 20:28] LABS: BILIRUBIN,URINE NEGATIVE (NEGATIVE); CLARITY,URINE SL CLOUDY (CLEAR); COLOR,URINE YELLOW (YELLOW); KETONES,URINE NEGATIVE (NEGATIVE); LEUKOCYTE ESTERASE ,URINE TRACE (NEGATIVE); NITRITE,URINE NEGATIVE (NEGATIVE); PROTEIN,URINE DIPSTICK >=300 (NEGATIVE); URINE UROBILINOGEN 0.2 mg/dL (0.2 - 1)
[2020-09-09 20:35] LABS: BACTERIA,URINE MANY /HPF; EPITHELIAL CELLS,URINE MODERATE /LPF
--- NOTE | 2020-09-09 20:50 | Diagnostic Imaging Report ---
EXAM: CT Abdomen and Pelvis WITH contrast INDICATION: Scrotal pain COMPARISON: Same day scrotal ultrasound. CT of the abdomen/pelvis on 10/08/2019. TECHNIQUE: Abdomen and pelvis were scanned utilizing a multidetector helical scanner from the lung base to the pubic symphysis after administration of IV contrast. Coronal and sagittal reformations were obtained. Routine protocol was performed. Scan was performed when during portal venous phase. IV CONTRAST: 100 mL of Isovue 370 ORAL CONTRAST: None COMPLICATIONS: None RADIATION DOSE: Total DLP: 669 mGy*cm Estimated effective dose: (DLP x 0.015 x size factor) mSv CTDIvol has been reviewed. It is below the limits set by the Radiation Protocol Committee (RPC). Dose modulation, iterative reconstruction, and/or weight based adjustment of the mA/kV was utilized to reduce the radiation dose to as low as reasonably achievable. FINDINGS: LINES and TUBES: None. LOWER THORAX: Unremarkable HEPATOBILIARY: No focal hepatic lesions. No biliary ductal dilation. GALLBLADDER: No radio-opaque stones or sludge. No wall thickening. SPLEEN: No splenomegaly. PANCREAS: No focal masses or ductal dilatation. ADRENALS: No adrenal nodules KIDNEYS/URETERS: Bilateral kidneys have hypoenhancement. No hydronephrosis. No cystic or solid mass lesions. No stones. There is nonspecific perinephric fat stranding bilaterally. GI TRACT: Circumferential wall thickness of the rectum. No abnormal distention, wall thickening, or evidence of bowel obstruction. Appendix is normal. PELVIC ORGANS/BLADDER: Unremarkable. LYMPH NODES: No lymphadenopathy. VESSELS: Scattered mild arterial vascular calcifications. PERITONEUM / RETROPERITONEUM: No free air or fluid. BONES: There are degenerative changes in the spine. SOFT TISSUES: There is scrotal soft tissue edema and redemonstration of multiple penile calcifications. There is a focus of air in the distal penis , likely from recent Beltrán catheterization. There is nonspecific diffuse soft tissue edema of the bilateral upper thigh extending to the midabdomen. Prominent bilateral inguinal lymph nodes unchanged from prior examination. IMPRESSION: 1. Nonspecific scrotal soft tissue edema. Redemonstration of multiple penile calcifications which are unchanged from prior examination. Findings are indeterminate and may be related to ongoing infectious or inflammatory process. Urology consultation should be considered. 2. Hypoenhancing kidneys with nonspecific perinephric fat stranding. Findings are nonspecific but can be suggestive of pyelonephritis and/or medical renal disease. 3. Circumferential wall thickening of the rectum which may be due to underdistention. However, proctitis can have a similar appearance and should be considered. Signed by: Sebastian Hall MD on 09/09/2020 8:47 PM
[2020-09-09] MEDS ORDERED: MORPHINE SULFATE INJ 4 MG/ML INJ 1ML IV PRN (22:00)
[2020-09-09] MEDS ORDERED: SODIUM CHLORIDE 0.9% 1000ML 1,000 ML IV SCH (22:00)
[2020-09-10] VITALS (9 sets, daily range): BP systolic 114–186; BP diastolic 45–82
[2020-09-10] MEDS: HYDRALAZINE HCL 20 MG/ML VIAL IV PRN ×2 (01:44→04:30)
[2020-09-10] MEDS ORDERED: HYDRALAZINE HCL 20 MG/ML VIAL ONE (01:48)
[2020-09-10] MEDS: PIPER-TAZ 3.375 GM 50 ML IV SCH ×2 (02:15→08:40)
--- NOTE | 2020-09-10 03:00 | NUR ---
RECEIVED REPORT FROM SANDRINE MALONE NURSE. PATIENT ARRIVED VIA WHEELCHAIR TO THE UNIT. PATIENT IN PAIN. CALL LIGHT WITHIN REACH. PAIN MEDICATION ADMINISTERED AFTER ARRIVAL
[2020-09-10] MEDS: ONDANSETRON HCL INJ 2MG/ML 2ML 2 MG/ML VIAL IV PRN ×2 (03:37→18:22)
--- NOTE | 2020-09-10 05:13 | NUR ---
PATIENT COMPLAINING OF PENILE AND TESTICLE PAIN AND SAID THE MORPHINE IS NOT HELPING. CALLED AND TALKED TO DR. MYERS ABOUT THE MORPHINE NOT HELPING THE PATIENT'S PAIN AND THE PATIENT HAS [address] MYERS ORDERED TORADOL 10 MG, IV Q6H
[2020-09-10] MEDS ORDERED: KETOROLAC TROMETHAMINE 30 MG/ML VIAL IV PRN (05:15)
[2020-09-10 06:18] LABS: BASOPHILS # (AUTO) 0.1 (0.0-0.1); BASOPHILS % 0.5 % (0.0-1.0); EOSINOPHILS # (AUTO) 0.3 (0.0-0.4); EOSINOPHILS % 2.5 % (0.0-6.0); HEMATOCRIT 31.9 % (38.2-49.6); HEMOGLOBIN 10.2 g/dL (14.0-18.0); LYMPHOCYTES # (AUTO) 1.2 (1.0-3.2); LYMPHOCYTES % 9.6 % (18.0-39.1); MEAN CORPUSCULAR HEMOGLOBIN 29.7 pg (28-32); MEAN CORPUSCULAR VOLUME 92.7 fL (81-99); MONOCYTES # (AUTO) 0.8 (0.2-0.8); NEUTROPHILS # (AUTO) 10.1 (2.1-6.9); NEUTROPHILS % 80.9 % (38.7-80.0); PLATELET COUNT 316 x10e3/uL (140-360); RED BLOOD COUNT 3.44 x10e6/uL (4.3-5.7)
[2020-09-10 06:47] LABS: ALBUMIN 2.3 g/dL (3.5-5.0); ALBUMIN/GLOBULIN RATIO 0.4 (0.8-2.0); ANION GAP 15.5 mmol/L (8-16); CALCIUM 8.1 mg/dL (8.4-10.2); CREATININE, SERUM 6.62 mg/dL (0.72-1.25); POTASSIUM 4.5 mmol/L (3.5-5.1)
--- NOTE | 2020-09-10 07:22 | NUR ---
GAVE BEDSIDE SHIFT REPORT TO ONCOMING NURSE. CALL LIGHT WITHIN REACH. PATIENT IN BED. HOURLY ROUNDING PERFORMED.
--- NOTE | 2020-09-10 08:40 | NUR ---
Dr. Sow here to see pt.
[2020-09-10] MEDS: NON-FORMULARY MEDICATION (Linagliptin (Tradjenta) 5 MG) PO SCH (09:00)
[2020-09-10] MEDS ORDERED: ZOLPIDEM TARTRATE 5 MG TAB PO PRN (09:15)
--- NOTE | 2020-09-10 09:23 | Consultation ---
DATE OF CONSULTATION: 09/10/2020 Urology Consultation REASON FOR CONSULTATION: Penoscrotal edema and renal failure. HISTORY OF PRESENT ILLNESS: Michael Johnosn is a 55-year-old man with chronic renal failure, now on hemodialysis. The patient was noted to have penoscrotal edema. He had a Beltrán catheter in place. The Beltrán catheter was removed. The patient is admitted with urinary tract infection, microhematuria, renal failure, and other problems. The patient reports he makes a very little urine out since he has been on dialysis. Urinalysis was obtained by the ER, but not enough urine was there for a culture. The patient denies previous urolithiasis or ever seeing a urologist previously. PAST MEDICAL AND SURGICAL HISTORY: 1. Hypertension. 2. Chronic renal failure, on hemodialysis Wednesday, , and Wednesday. 3. Diabetes mellitus. 4. Hyperlipidemia. 5. Neuropathy. 6. Status post bilateral lens placement. 7. Left toe amputation. CURRENT MEDICATIONS: Please refer to the MAR. ALLERGIES: PLEASE REFER TO THE MAR. SOCIAL HISTORY: The patient denies smoking, ethanol, or drug use. He used to smoke in the past. 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 FAMILY HISTORY: Noncontributory to the active urological problems. REVIEW OF SYSTEMS: As discussed as above in the history of present illness and past medical history, otherwise negative for all systems. PHYSICAL EXAMINATION: GENERAL: Relatively healthy-appearing 55-year-old male, walking around the room, in no apparent distress. VITAL SIGNS: He is currently afebrile. Vital signs are currently stable. ABDOMEN: Soft, nondistended, nontender. It is obese. GENITOURINARY: Testes descended bilaterally. Nontender. There is minimal amount of penoscrotal edema. The patient has a firm, hard penile shaft. He has phimosis as well. There is no obvious drainage or discharge at this time. This is consistent with dry gangrene. For the remaining physical examination systems, please refer to the admission history and physical in the chart. LABORATORY STUDIES: CT scan of the abdomen and pelvis was done with contrast, that showed poorly functioning kidneys and scrotal soft tissue edema and calcifications of the penis. White blood cell count is 12,490, hemoglobin 10.2, platelets 316,000. The patient's is creatinine 6.62, sodium is slightly low at 135, calcium is low at 8.1. Urinalysis significant for rbc's, wbc's, and many bacteria as well as proteinuria and glycosuria. ASSESSMENT: 1. Chronic renal failure. 2. Penoscrotal edema, that is mild. 3. Urinary tract infection. 4. Microhematuria. 5. Leukocytosis. 6. Anemia. 7. Hyponatremia. 8. Phimosis. 9. Obesity. 10. Glycosuria. 11. Proteinuria. 12. History of Beltrán catheter. 13. Dry gangrene of the penis. PLANS: 1. Hematological and electrolyte abnormalities per primary team. 2. RN to collect urine culture and sensitivity. Unfortunately, the patient has already received antibiotics prior to the culture being sent. 3. The patient needs ongoing urological followup. 4. Defer the antibiotics to the Infectious Diseases service. Thank you much for involving us in the care of your patient. We will be happy to follow along with you as well as an outpatient. Zachery Felton MD [place]/MODL /[id number]
[2020-09-10] MEDS: NIFEDIPINE CR 30 MG TAB PO SCH (09:45)
[2020-09-10] MEDS: BUMETANIDE 1 MG TAB PO SCH ×2 (09:45→16:12)
[2020-09-10] MEDS: LISINOPRIL 20 MG TAB PO SCH (09:45)
[2020-09-10] MEDS: INSULIN GLARGINE 100 UNITS/ML VIAL SQ SCH ×2 (09:45→17:00)
[2020-09-10] MEDS: SEVELAMER CARBONATE 800 MG TAB PO SCH ×3 (09:45→22:29)
[2020-09-10] MEDS: SODIUM BICARBONATE 650 MG TAB PO SCH ×3 (09:45→22:30)
[2020-09-10] MEDS ORDERED: GABAPENTIN 300 MG CAP PO SCH (09:45)
--- NOTE | 2020-09-10 10:00 | NUR ---
Dr. Guerra here to see pt.
--- NOTE | 2020-09-10 12:00 | NUR ---
pt signed consent for dialysis.
--- NOTE | 2020-09-10 13:41 | NUR ---
WOUND CARE CONSULT 55 YO MALE HX OF UTI, ESRD NAT 18 0N CONSERVATIVE PUP STATUS AND INTERVENTIONS VISCO SURFACE LABS: WBC- 12.49 HGB- 10.2 GLUCOSE-150 HEAD TO TOE SKIN ASSESSMENT COMPLETE PATIENT PRESENTS WITH RIGHT POSTERIOR UPGRADEABLE WOUND REPORTED PAST NONHEALING ABRASION/SKIN TEAR BY PATIENT MEASURES 3CM X3CM DARK BLACK ESCHAR RIGHT POSTERIOR HEEL UPGRADEABLE WOUND 3CM X3CM DARK BLACK ESCHAR REPORTED PAST NONHEALING WOUND R/T STEPPING ON OBJECT BY PATIENT RECOMMENDATIONS: NURSING TO CONTINUE TO MONITOR PATIENT AND KEEP SKIN CLEAN AND FREE FROM LOOSE STOOL OR IRRITATING MOISTURE AND CONTINUE TO FOLLOW CONSERVATIVE / MODERATE / STRICT PUP STATUS INTERVENTIONS NURSING TO CONTINUE TO GET PATIENT OUT OF BED FOR MEALS AND MUCH TOLERATED NURSING TO CLEAN UPGRADEABLE RIGHT LOWER LEG WOUND AND RIGHT UPGRADEABLE HEEL WOUND WITH NORMAL SALINE DAILY AND PAINT WITH BETADINE AND LEAVE OPEN TO AIR Addendum: 09/10/20 at 1349 by Edgardo Tavarez RN Amended: Links added.
--- NOTE | 2020-09-10 14:26 | Consultation ---
DATE OF CONSULTATION: 09/10/2020 HISTORY OF PRESENT ILLNESS: A 55-year-old gentleman, who went to a Nephrology Service, came in with scrotal swelling seen by . Please see their notes for detail. Has underlying history of hypertension, type 2 diabetes, diabetic kidney disease, end-stage renal disease, peripheral neuropathy, atherosclerotic cardiovascular disease, hypothyroidism, secondary hyperparathyroidism as well as anemia of chronic kidney disease, currently sitting up in no apparent distress, scheduled for dialysis today. Denies fever, chills, nausea, vomiting, or headache. ALLERGIES: NO APPARENT DRUG ALLERGIES. LABORATORY DATA: White count 14.6 with a hemoglobin 10.3, potassium 4.5, creatinine 6.6, alkaline phosphatase is elevated with calcium 8.1. SOCIAL HISTORY: Does not smoke or drink. FAMILY HISTORY: Significant for diabetes. MEDICATIONS: Currently on linagliptin 5 mg p.o. daily, sodium bicarbonate 650 b.i.d., Renagel 600 mg p.o. t.i.d., nifedipine 60 mg p.o. daily, lisinopril 20 mg p.o. daily, levothyroxine 25 mcg p.o. daily, Bumex 1 mg p.o. b.i.d., Neurontin 600 mg p.o. b.i.d., which I will adjust to 300 mg once a day given his kidney failure. I will also stop linagliptin because of ESRD status. He is on Peptazol at a very high dose, which I will change to q.12. Infectious Disease to see. PHYSICAL EXAMINATION: GENERAL: Awake, alert, and oriented x3, lying supine, in no apparent distress. VITAL SIGNS: Blood pressure 183/78, pulse rate 73, afebrile, respiratory rate 14. HEAD AND NECK: Cornea clear. Oral mucosa moist. Neck veins flat. LUNGS: Bibasilar rales. HEART: S1, S2 audible. ABDOMEN: Soft, nontender. EXTREMITIES: Lower extremity examination shows no edema. IMPRESSION AND PLAN: End-stage renal disease, mild fluid overload. Please see Dr. Felton's note. I will arrange for dialysis. Please resume phosphorus binders. Renal diet. Please see orders. MD JACINDA Gomez/EMMETT /[id number]
--- NOTE | 2020-09-10 14:41 | History and Physical ---
HISTORY OF PRESENT ILLNESS: Michael Johnson is a 55-year-old male with past medical history positive for hypertension, diabetes, end-stage renal disease on dialysis, came here because of testicular pain. He had another testicular ultrasound, which showed no torsion. He showed calcification in the penis area. Blood pressure is very high also. REVIEW OF SYSTEMS: CARDIOVASCULAR: No chest pain or palpitations. RESPIRATORY: No shortness of breath. No cough. GASTROINTESTINAL: No nausea or vomiting. No diarrhea. GENITOURINARY: Testicular pain. No frequency. No dysuria. No blood in the urine. ALLERGIES: NOT ALLERGIC TO ANYTHING. PAST MEDICAL HISTORY: Hypertension, diabetes, and end-stage renal disease, on dialysis. SOCIAL HISTORY: He does not smoke. He does not drink. PHYSICAL EXAMINATION: VITAL SIGNS: Blood pressure 183/78, temperature 37.9, heart rate 73 per minute, respiratory rate 18 per minute, O2 saturation 98%. LABORATORY DATA: On the CBC, white count is elevated 12.49, hemoglobin 10.2, hematocrit 31.9, platelet count 316,000. On the BMP; sodium 135, potassium 4.5, chloride 100, CO2 of 24, BUN 42 and creatinine 3.62, glucose 150, calcium 8.1, total bilirubin 0.3, AST 41, ALT 34, alkaline phosphatase 525, creatine kinase 161, troponin 0.021. B-type natriuretic peptide , albumin 2.3, globulin 6.1. On the urine, essentially no leukocytes. Some red blood cells and white blood cells. COVID-19 test is pending. We have an x-ray also done. CT of the abdomen and pelvis showed nonspecific scrotal soft tissue edema, multiple penile calcifications, which are unchanged from prior examination finding indeterminated and may be related to ongoing infections, inflammatory process. Urology consultation should be considered. Hypoenhancing kidney with nonspecific perinephric fat stranding. Findings are nonspecific, but can be suggestive of pyelonephritis and medical renal disease, circumferential wall thickening of the rectum, which may be due to underdistention, however, proctitis . Testicular ultrasound has been done, which showed no evidence of testicular torsion. No evidence of high epididymo-orchitis unchanged. IMPRESSION: 1. Testicular pain. 2. End-stage renal disease, on dialysis. 3. Hypertension. 4. Uncontrolled diabetes mellitus type 2 with end-stage renal disease. 5. Obesity. PLAN OF TREATMENT: The patient is getting normal saline, which we are going to discontinue because the patient is a dialysis patient. Continue with Zosyn 3.375 g IV q.6 hours. Continue Lipitor 80 mg at bedtime, Bumex 1 mg twice a day, gabapentin 600 mg twice a day. He is taking hydralazine 10 mg IV q.4 hours as needed for hypertension. He is taking also levothyroxine 25 mcg daily, lisinopril 20 mg daily, morphine 4 mg q.4 hours as needed for severe pain. Apparently it is not working. We are going to change to Dilaudid 1 mg IV every 4 hours as needed. Continue nifedipine 60 mg daily. Sevelamer 1600 mg daily two times a day. Sodium bicarbonate 650 mg three times a day. Continue Lantus insulin 15 units twice a day and Tradjenta 5 mg daily. Urology is on the case for the benign calcifications. Dr. Burroughs also consulted for Infectious Diseases. . renal diet. We are going to give him Ambien 5 mg at night p.r.n. for sleep also because of insomnia. MD DEE Ramirez/EMMETT /[id number]
[2020-09-10] MEDS: GABAPENTIN 300 MG CAP PO SCH (16:12)
--- NOTE | 2020-09-10 17:30 | NUR ---
dialysis started at t his time. pt tolerating well.
[2020-09-10] MEDS ORDERED: SODIUM CHLORIDE 0.9% 1000ML 2,000 ML ONE (18:21)
[2020-09-10] MEDS: HYDROMORPHONE 1MG/1ML INJ IV PRN ×2 (18:21→22:30)
--- NOTE | 2020-09-10 19:35 | NUR ---
walking rounds complete, report given to oncoming nurse, pt stable at shift change.
--- NOTE | 2020-09-10 19:37 | NUR ---
Patient received undergoing dialysis. AAO x 3. No acute distress noted. Call light within reach.
[2020-09-10] MEDS ORDERED: HEPARIN SOD (PORCINE) 1000 UNIT/ML SDV ONE (21:12)
[2020-09-10] MEDS: ATORVASTATIN 40 MG TAB PO SCH (22:29)
[2020-09-10] MEDS: PIPERACILLIN/TAZO 2.25 GM 50 ML IV SCH (22:30)
--- NOTE | 2020-09-10 22:35 | NUR ---
Dialysis completed. 3.5 L removed.
[2020-09-11] VITALS (8 sets, daily range): BP systolic 146–188; BP diastolic 75–91
--- NOTE | 2020-09-11 02:49 | Consultation ---
DATE OF CONSULTATION: 09/10/2020 REASON FOR CONSULTATION: Cellulitis of the scrotum. HISTORY OF PRESENT ILLNESS: This is a 55-year-old white male with history of hypertension, diabetes mellitus, end-stage disease on hemodialysis, comes in with redness and swelling of the scrotum. The patient is being admitted. PAST MEDICAL HISTORY: As above. PAST SURGICAL HISTORY: As above. ALLERGIES: NKA. SOCIAL HISTORY: There is no smoking, drug abuse or alcohol abuse. FAMILY HISTORY: Otherwise unremarkable. LABORATORY DATA: Urine culture is still pending. White count 12.09. His COVID is still pending. His sodium 135, creatinine 6.65. PHYSICAL EXAMINATION: GENERAL: Currently alert, oriented. Does not seem to be in acute distress, obese. VITAL SIGNS: Stable, currently afebrile. HEENT: Normocephalic. NECK: Supple. CHEST: Clear. ABDOMEN: Soft. Bowel sounds present. He did have erythema above the scrotal area. IMPRESSION: Cellulitis of the scrotum, end-stage renal disease, he is going to be on dialysis, currently on Zosyn. Present time he is feeling better with that. We will continue same and reassess in the morning. MD NGOC Romero/EMMETT /[id number]
[2020-09-11] MEDS: HYDROMORPHONE 1MG/1ML INJ IV PRN ×4 (04:09→21:38)
[2020-09-11 05:18] LABS: BASOPHILS # (AUTO) 0.1 (0.0-0.1); BASOPHILS % 0.6 % (0.0-1.0); EOSINOPHILS # (AUTO) 0.4 (0.0-0.4); EOSINOPHILS % 3.8 % (0.0-6.0); HEMATOCRIT 33.5 % (38.2-49.6); HEMOGLOBIN 10.6 g/dL (14.0-18.0); LYMPHOCYTES # (AUTO) 1.5 (1.0-3.2); LYMPHOCYTES % 12.9 % (18.0-39.1); MEAN CORPUSCULAR HEMOGLOBIN 29.3 pg (28-32); MEAN CORPUSCULAR HGB CONC 31.6 g/dL (31-35); MEAN CORPUSCULAR VOLUME 92.5 fL (81-99); MONOCYTES % 8.6 % (4.4-11.3); NEUTROPHILS # (AUTO) 8.4 (2.1-6.9); NEUTROPHILS % 73.6 % (38.7-80.0); PLATELET COUNT 304 x10e3/uL (140-360); RED BLOOD COUNT 3.62 x10e6/uL (4.3-5.7); RED CELL DISTRIBUTION WIDTH 14.1 % (11.7-14.4)
[2020-09-11] MEDS: LEVOTHYROXINE SODIUM 25 MCG TABLET PO SCH (05:52)
[2020-09-11] MEDS: PIPERACILLIN/TAZO 2.25 GM 50 ML IV SCH ×3 (05:52→21:50)
--- NOTE | 2020-09-11 06:44 | NUR ---
Patient resting comfortably. Shift report given to oncoming nurse about patient's status.
--- NOTE | 2020-09-11 07:30 | NUR ---
PATIENT IS AWAKE, SITTING ON THE SIDE OF THE BED AND IN STABLE CONDITION WITH NO S/S OF RESPIRATORY DISTRESS. NO PAIN VOICED. CALL LIGHT IS WITHIN REACH, PATIENT INSTRUCTED TO CALL FOR ASSISTANCE NEEDED.
[2020-09-11] MEDS: NON-FORMULARY MEDICATION (Linagliptin (Tradjenta) 5 MG) PO SCH (09:00)
[2020-09-11] MEDS: SODIUM BICARBONATE 650 MG TAB PO SCH ×3 (09:45→21:14)
[2020-09-11] MEDS: NIFEDIPINE CR 30 MG TAB PO SCH ×2 (09:45→16:19)
[2020-09-11] MEDS: SEVELAMER CARBONATE 800 MG TAB PO SCH ×3 (09:45→21:14)
[2020-09-11] MEDS: GABAPENTIN 300 MG CAP PO SCH ×2 (09:46→16:19)
[2020-09-11] MEDS: BUMETANIDE 1 MG TAB PO SCH ×2 (09:46→16:19)
[2020-09-11] MEDS: LISINOPRIL 20 MG TAB PO SCH (09:46)
[2020-09-11] MEDS: INSULIN GLARGINE 100 UNITS/ML VIAL SQ SCH ×2 (10:08→17:40)
[2020-09-11] MEDS: HYDRALAZINE HCL 20 MG/ML VIAL IV PRN (12:48)
[2020-09-11] MEDS ORDERED: ONDANSETRON HCL 4 MG ORAL DISINTEGRATING TAB PO PRN (13:45)
--- NOTE | 2020-09-11 14:32 | NUR ---
CALL PLACED OUT TO DR. MYERS REGARDING PAIN MEDICATION FOR PATIENT- AWAITING CALLBACK.
--- NOTE | 2020-09-11 14:33 | Progress Note ---
DATE: Internal Medicine Progress Note SUBJECTIVE: The patient is complaining of pain. PHYSICAL EXAMINATION: VITAL SIGNS: Blood pressure 198/80, temperature 98.1, heart rate 77 per minute, respiratory rate 17 per minute, and oxygen saturation 98%. HEART: Showed regular rhythm. Normal S1 and S2 sound. LUNGS: Clear bilaterally. EXTREMITIES: Show 2+ bilateral pedal edema. LABORATORY DATA: On the CBC; white blood count 11.4, hemoglobin 10.6, hematocrit 33.5, and platelet count 304,000. Last blood sugar is 111. Urine culture is negative for the first 18 to 24 hours. FINAL IMPRESSION: 1. Testicular pain secondary to scrotal cellulitis. 2. End-stage renal disease, on dialysis. 3. Uncontrolled hypertension. 4. Uncontrolled diabetes mellitus type 2 with end-stage renal disease. 5. Obesity. PLAN OF TREATMENT: We are going to increase the nifedipine to 60 mg twice a day due to uncontrolled hypertension. Continue Zosyn 2.25 g IV q.8 hours. Continue Lipitor 80 mg at bedtime, Bumex 1 mg twice a day, gabapentin 300 mg twice a day, hydralazine 10 mg IV q.4 hours as needed for hypertension, Dilaudid 1 mg IV q.4 hours as needed for severe pain, Lantus 15 units subcutaneously twice a day, Synthroid 25 mcg p.o. daily, lisinopril 20 mg daily, nifedipine 60 mg twice a day, Zofran 4 mg q.4 hours as needed, sevelamer 1600 mg 3 times a day, sodium bicarbonate 650 mg 3 times a day, Ambien 5 mg at night p.r.n. for sleep, and Tradjenta [address] Burroughs is following the case from an Infectious Disease point of view, Dr. Felton from Urology point of view, and Dr. Guerra from Nephrology point of view. Continue diabetic and renal diet. Continue to monitor blood sugar before meals and at bedtime. Continue monitoring BUN, creatinine, and electrolytes. We will follow the blood pressure closely. Tentative discharge tomorrow. MD DEE Ramirez/MODL /[id number]
[2020-09-11] MEDS: HYDROCODONE/APAP 10MG-325MG TAB PO PRN ×2 (15:05→19:10)
--- NOTE | 2020-09-11 15:46 | NUR ---
Nutrition Screen Note RD Recommendation for Physician: -Recommend renal/ADA diet Plan of Care: RD following, monitoring for tolerance and adequacy Nutrition reason for involvement: Nutrition Risk Trigger Primary Diagnose(s): complicated UTI, ESRD PMH: Hypertension, Chronic renal failure, on hemodialysis, Diabetes mellitus, Hyperlipidemia, Neuropathy, Status post bilateral lens placement, Left toe amputation. Ht: 68 in Wt: 206 lb BMI: 31.3 kg/m2 IBW: [address] Assessment: (09/11/20) Chart reviewed. Labs and meds reviewed. Pt is a 55 year old male admitted with complicated UTI and ESRD. Pt reports a good appetite and has been eating all of his meals. No weight loss reported and pt mentioned he usually weighs 206 lbs. No N/V/D/C or chewing/swallowing issues. Pt declined the need for diet education. Will continue to monitor. Current Diet: 1400 ADA Malnutrition Evaluation (09/11/20) The patient does not meet criteria for a specified degree of malnutrition at this time. Will re-evaluate at follow-up as appropriate. Diet Education Needs Assessment: Pt declined the need for diet education. Nutrition Care Level: low Signed: Britney Tomlinson, RD, LD
--- NOTE | 2020-09-11 15:47 | NUR ---
INFECTIOUS DISEASE PROGRESS NOTE DR. BRYSON LOCKWOOD CC: Cellulitis of the scrotum. HISTORY OF PRESENT ILLNESS: This is a 55-year-old white male with history of hypertension, diabetes mellitus, end-stage disease on hemodialysis, comes in with redness and swelling of the scrotum. ROS: swelling, pain ALL 14 POINT ROS REVIEWED AND NEGATIVE UNLESS OTHERWISE DOCUMENTED PAST MEDICAL HISTORY: As above. ALLERGIES: NKA. LABORATORY DATA: per chart PHYSICAL EXAMINATION: GENERAL: Currently alert, oriented. Does not seem to be in acute distress, obese. VITAL SIGNS: Stable, currently afebrile. HEENT: Normocephalic. atraumatic NECK: Supple. no JVD CHEST: Clear. symmetric expansion ABDOMEN: Soft. Bowel sounds present. He did have erythema above the scrotal area. IMPRESSION: Cellulitis of the scrotum end-stage renal disease Leukocytosis IMPRESSION: 1. No evidence of testicular torsion. No evidence of epididymoorchitis. 2. Enlarged bilateral inguinal nodes have normal morphology and are unchanged. PLAN: Zosyn, supportive care We will continue same for now await culture results Gudelia Fernández MSN, CASINO PORTER, AGACNP-BC d/w Bryson Lockwood M.D
--- NOTE | 2020-09-11 19:24 | NUR ---
PATIENT IS IN STABLE CONDITION WITH NO S/S OF RESPIRATORY DISTRESS. PATIENT RECEIVED PAIN MEDICATION FOR SCROTUM PAIN 06/17. CALL LIGHT IS WITHIN REACH- PATIENT INSTRUCTED TO CALL FOR ASSISTANCE NEEDED. BEDSIDE SHIFT REPORT GIVEN TO ONCOMING NURSE.
--- NOTE | 2020-09-11 20:52 | NUR ---
RECEIVED PT AOX3 SITTING ON THE SIDE OF THE BED NO SIGN OF RESPIRATORY DISTRESS. C/O PAIN AT THE SCROTUM . CALL LIGHT IS WITHIN REACH, CONTINUE TO MONITOR
[2020-09-11] MEDS: ATORVASTATIN 40 MG TAB PO SCH (21:14)
[2020-09-12 01:09] VITALS: BP 149/79
[2020-09-12] MEDS: PIPERACILLIN/TAZO 2.25 GM 50 ML IV SCH ×2 (01:38→05:50)
[2020-09-12] MEDS: HYDROMORPHONE 1MG/1ML INJ IV PRN ×3 (01:38→12:16)
[2020-09-12 05:03] VITALS: BP 177/82
--- NOTE | 2020-09-12 06:15 | NUR ---
PT C/O PAIN AND GIVEN ORDERED PAIN MEDICATION ,CALL LIGHT WITH IN REACH ,CONTINUE TO MONITOR
[2020-09-12] MEDS: LEVOTHYROXINE SODIUM 25 MCG TABLET PO SCH (06:28)
--- NOTE | 2020-09-12 07:26 | NUR ---
BEDSIDE REPORT GIVEN TO THE ONCOMING NURSE
[2020-09-12 07:58] VITALS: BP 160/71
[2020-09-12 08:27] VITALS: BP 160/71
[2020-09-12] MEDS ORDERED: SODIUM CHLORIDE 0.9% 1000ML 2,000 ML ONE (08:39)
[2020-09-12] MEDS ORDERED: HEPARIN SOD (PORCINE) 1000 UNIT/ML SDV IV PRN (08:45)
[2020-09-12] MEDS ORDERED: SODIUM CHLORIDE 0.9% 1000ML 2,000 ML IV PRN (08:45)
[2020-09-12] MEDS: NON-FORMULARY MEDICATION (Linagliptin (Tradjenta) 5 MG) PO SCH (09:00)
[2020-09-12] MEDS ORDERED: VANCOMYCIN HCL 1 GM VIAL ONE (09:01)
[2020-09-12] MEDS: BUMETANIDE 1 MG TAB PO SCH ×2 (09:09→16:34)
[2020-09-12] MEDS: GABAPENTIN 300 MG CAP PO SCH ×2 (09:09→16:34)
[2020-09-12] MEDS: LISINOPRIL 20 MG TAB PO SCH (09:10)
[2020-09-12] MEDS: SODIUM BICARBONATE 650 MG TAB PO SCH ×2 (09:10→16:34)
[2020-09-12] MEDS: SEVELAMER CARBONATE 800 MG TAB PO SCH ×2 (09:10→16:34)
[2020-09-12] MEDS: INSULIN GLARGINE 100 UNITS/ML VIAL SQ SCH (09:11)
[2020-09-12] MEDS: NIFEDIPINE CR 30 MG TAB PO SCH ×2 (09:11→16:34)
--- NOTE | 2020-09-12 09:18 | NUR ---
DIALYSIS STARTED, PT TOLERATING WELL.
[2020-09-12 09:44] LABS: ANION GAP 15.7 mmol/L (8-16); CALCIUM 8.3 mg/dL (8.4-10.2); CREATININE, SERUM 6.66 mg/dL (0.72-1.25); POTASSIUM 4.7 mmol/L (3.5-5.1)
--- NOTE | 2020-09-12 11:14 | NUR ---
CALLED DR MYERS FOR D/C ORDERS.
[2020-09-12 11:38] VITALS: BP 130/74
[2020-09-12] MEDS: HYDROCODONE/APAP 10MG-325MG TAB PO PRN (12:37)
--- NOTE | 2020-09-12 13:19 | Progress Note ---
DATE: SUBJECTIVE: Mr. Johnson is doing well. There are no new complaints. He does have dialysis arranged. The scrotal is better. His urine culture was negative. His white count is 11 and his hemoglobin of 10. REVIEW OF SYSTEMS: Otherwise unremarkable. PHYSICAL EXAMINATION: GENERAL: Currently alert and oriented. VITAL SIGNS: Stable, currently afebrile. HEENT: He is not icteric. NECK: Supple. CHEST: Clear bilateral. HEART: S1 and S2. ABDOMEN: Soft. Bowel sounds present. EXTREMITIES: No edema. SKIN: No rash. IMPRESSION: 1. Scrotal cellulitis, getting better. Can discharge home with doxycycline 100 mg p.o. b.i.d. for 2 weeks. 2. The patient has diarrhea. We will give Flagyl for possibility of Clostridium difficile . Follow up as outpatient. MD NGOC Romero/EMMETT /[id number]
--- NOTE | 2020-09-12 14:45 | NUR ---
pt dialysis finished pt tolerated well.
[2020-09-12 15:52] VITALS: BP 151/78
--- NOTE | 2020-09-12 16:34 | Discharge Summary ---
HOSPITAL COURSE: A 55-year-old male, past medical history positive for end-stage renal disease on dialysis, hypertension, and diabetes, came here with scrotal pain. He was found to have scrotal cellulitis, seen by Urology, Dr. Felton. He was seen by Dr. Burroughs, Infectious Diseases. He is going to be discharged home today with oral antibiotics. The patient had a testicular ultrasound, which showed no evidence of any torsion, but he has some swelling in the scrotum area. The patient is on dialysis. He had dialysis today. Blood pressure was very high when he came, now blood pressure is much better after his nifedipine was increased. PHYSICAL EXAMINATION: HEART: Showed regular rhythm. Normal S1 and S2 sound. LUNGS: Clear bilaterally. ABDOMEN: Soft. EXTREMITIES: Show 2+ edema. VITAL SIGNS: Blood pressure 130/74, temperature 97.8, heart rate 85 per minute, respiratory rate 16 per minute, and oxygen saturation 96%. LABORATORY DATA: On the blood work, we have CBC; white blood count is 11.4, hemoglobin 10.6, hematocrit 33.5, and platelet count 304,000. On the BMP; sodium 135, potassium 4.7, chloride 99, CO2 25, BUN 37, creatinine 3.66, glucose 122, and calcium 8.3. FINAL IMPRESSION: 1. Scrotal cellulitis. 2. Hypertension with hypertensive nephropathy. 3. Uncontrolled diabetes mellitus type 2 with diabetic nephropathy. 4. End-stage renal disease, on dialysis. PLAN OF TREATMENT: The patient will continue with Tylenol 3 one tablet every 6 hours as needed for pain, doxycycline 100 mg twice a day, to complete 10 days of treatment, Flagyl 250 mg 3 times a day for 2 weeks, and Procardia XL 60 mg 2 tablets daily. Continue Lipitor 80 mg daily, Bumex 1 mg twice a day, and gabapentin 300 mg twice a day. Continue with Lantus insulin 15 units twice a day, levothyroxine 25 mcg daily, lisinopril 20 mg daily, Procardia XL 60 mg twice a day, sevelamer 1600 mg 3 times a day, sodium bicarbonate 650 mg 3 times a day, Ambien 5 mg at night p.r.n. for insomnia, and Tradjenta 5 mg daily. The patient is going to follow up with Dr. Felton. Follow up also with Dr. Burroughs. Follow up with primary care physician. Diet, renal and diabetic diet. MD DEE Ramirez/EMMETT /[id number]
--- NOTE | 2020-09-12 17:00 | NUR ---
pt discharged home , no distress noted at this time, pt was educated on his medications and was asked to follow up with their PCP, pt iv site removed, no swelling no redness to site.
--- OUTSIDE RECORDS SUMMARY | 2020-09-12 18:45 | XMS REPORT | Clinical Summary ---
Author Author [facility] Organization [facility] Address Unknown Phone Unavailable Care Team Providers Care Vice President [employer] Name Role Phone Asked, No Pcp PCP Unavailable Allergies Not on File Medications Not on file Active Problems Not on file Encounters Care Team Description Date Type Specialty [place] MD Elevated serum creatinine; CKD (chronic kidney disease) 03/08/2020 Hospital Radiology Encounter 03/08/2020 Travel 02/14/2020 Travel [place] MD Elevated serum creatinine (Primary Dx); CKD (chronic kidney disease) 02/14/2020 Transcribe Access Orders after 09/09/2019 Social History Date Tobacco Use Types Packs/Day Years Used Never Assessed Sex Assigned at Date Recorded Not on file Last Filed Vital Signs Not on file Plan of Treatment Health Maintenance Due Date Last Done Comments DIABETES: RETINAL EYE 1975 EXAM DIABETIC FOOT EXAM 1975 URINE MICROALBUMIN 1975 COLONOSCOPY SCREENING 2015 SHINGLES VACCINES (#1) 2015 INFLUENZA VACCINE 06/08/2020 10/10/2019 Procedures Comments Procedure Name Priority Date/Time Associated Diag nosis US RENAL Routine 03/08/2020 Elevated serum creatinine 12:29 PM CDT CKD (chronic kidney disease) after 09/09/2019 Results * US Renal (03/08/2020 12:29 PM CDT) Specimen Narrative Performed At EXAMINATION: US RENAL [facility] CLINICAL HISTORY: R79.89 Other specif ied abnormal findings of blood chemistry, N18.9 Chronic kidney disease unspecif ied, ELEVATED CREATININE CKD COMPARISON: None available at this time . IMPRESSION: 1.Normal renal size and echogenicity. 2.No cortical atrophy or hydronephrosis . 3.Nonspecific mild diffuse thickening o f the urinary bladder wall may be due to to detrussor muscle hypertrophy from ch ronic outlet obstruction or inflammatory or infectious cystitis. FINDINGS: RIGHT KIDNEY: *Position and Orientation: Normal. *Renal Cortical Echogenicity: Normal. *Size: 11.7 x 5.4 x 5.0 cm. *Cyst: None. *Mass: None. *Calculus: None. *Hydronephrosis: None. LEFT KIDNEY: *Position and Orientation: Normal. *Renal Cortical Echogenicity: Normal. *Size: 11.2 x 6.6 x 5.4 cm. *Cyst: None. *Mass: None. *Calculus: None. *Hydronephrosis: None. BLADDER: Mild diffuse thickening of the urinary bladder wall. OTHER: None. Thank you for allowing us to participat e in the care of your patient. [facility]-[id number] Procedure Note Hm Interface, Radiology Results Incoming - 03/08/2020 12:36 PM CDT EXAMINATION: US RENAL CLINICAL HISTORY: R79.89 Other specified abnormal findings of blood chemistry, N18.9 Chronic kidney disease unspecified, ELEVATED CREATININE CKD COMPARISON: None available at this time. IMPRESSION: 1.Normal renal size and echogenicity. 2.No cortical atrophy or hydronephrosis. 3.Nonspecific mild diffuse thickening of the urinary bladder wall may be due to to detrussor muscle hypertrophy from chronic outlet obstruction or inflammatory or infectious cystitis. FINDINGS: RIGHT KIDNEY: *Position and Orientation: Normal. *Renal Cortical Echogenicity: Normal. *Size: 11.7 x 5.4 x 5.0 cm. *Cyst: None. *Mass: None. *Calculus: None. *Hydronephrosis: None. LEFT KIDNEY: *Position and Orientation: Normal. *Renal Cortical Echogenicity: Normal. *Size: 11.2 x 6.6 x 5.4 cm. *Cyst: None. *Mass: None. *Calculus: None. *Hydronephrosis: None. BLADDER: Mild diffuse thickening of the urinary bladder wall. OTHER: None. Thank you for allowing us to participate in the care of your patient. [facility]-[id number] Performing Organization Address City/State/ZIP Code P vignesh Number [facility] [id number] [place] [address] after 09/09/2019 Advance Directives For more information, please contact: [phone] Patient Community Reinvestment Act Officer Explanation Type Date Recorded Advance Directives, Living Will and Medical Power of Test Lead
--- OUTSIDE RECORDS SUMMARY | 2020-09-12 18:47 | XMS REPORT | Continuity of Care Document ---
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 weight E&M 2019-09-29 09:50:41 203 [lb_av] [facility] in kilograms E&M 2019-09-29 09:50:41 92.27 kg [facility] site 2019-09-29 09:50:41 oral Lega cy [facility] respiratory rate E&M 2019-09-29 09:50:41 18 /min [facility] height in centimeters E&M 2019-09-29 09:50:41 175.26 cm [facility] oxygen saturation, oximetry 2019-09-29 09:02:42 97 % [facility] blood pressure, diastolic 2019-09-29 09:02:42 86 mm[Hg] [facility] blood pressure, systolic 2019-09-29 09:02:42 203 mm[Hg] [facility] pulse rate 2019-09-29 09:02:42 62 /min [facility] temperature E&M 2019-09-29 09:02:42 98.6 [degF] Leg[facility] y [facility] temperature site 2019-09-29 09:02:42 oral Lega cy [facility] height in centimeters E&M 2019-09-29 09:02:42 175.26 cm [facility] weight E&M 2019-09-29 09:02:42 203.20 [lb_av] [facility] weight in kilograms E&M 2019-09-29 09:02:42 92.36 kg [facility] oxygen saturation, oximetry 2019-09-27 09:36:57 98 % [facility] blood pressure, diastolic 2019-09-27 09:36:57 63 mm[Hg] [facility] blood pressure, systolic 2019-09-27 09:36:57 177 mm[Hg] [facility] pulse rate 2019-09-27 09:36:57 64 /min [facility] temperature E&M 2019-09-27 09:36:57 97.6 [degF] [facility] weight E&M 2019-09-27 09:36:57 205 [lb_av] [facility]&M 2019-09-27 09:36:57 93.18 kg [facility] site 2019-09-27 09:36:57 oral Lega cy [facility] respiratory rate E&M 2019-09-27 09:36:57 18 /min [facility] height in centimeters E&M 2019-09-27 09:36:57 175.26 cm [facility] oxygen saturation, oximetry 2019-09-16 13:25:59 98 % [facility] blood pressure, diastolic 2019-09-16 13:25:59 75 mm[Hg] [facility] blood pressure, systolic 2019-09-16 13:25:59 163 mm[Hg] [facility] pulse rate 2019-09-16 13:25:59 60 /min [facility] temperature E&M 2019-09-16 13:25:59 97.6 [degF] [facility] weight E&M 2019-09-16 13:25:59 212 [lb_av] [facility] weight in kilograms E&M 2019-09-16 13:25:59 96.36 kg [facility] temperature site 2019-09-16 13:25:59 oral Lega [facility] respiratory rate E&M 2019-09-16 13:25:59 18 /min [facility] height in centimeters E&M 2019-09-16 13:25:59 175.26 cm [facility] blood pressure, diastolic 2019-09-05 11:23:26 92 mm[Hg] [facility] blood pressure, systolic 2019-09-05 11:23:26 198 mm[Hg] [facility] oxygen saturation, oximetry 2019-09-05 11:23:26 97 % [facility] pulse rate 2019-09-05 11:23:26 67 /min [facility]&M 2019-09-05 11:23:26 97.8 [degF] [facility] y [facility] weight E&M 2019-09-05 11:23:26 210 [lb_av] [facility] E&M 2019-09-05 11:23:26 95.45 kg [facility] temperature site 2019-09-05 11:23:26 oral Lega [facility] respiratory rate E&M 2019-09-05 11:23:26 18 /min [facility] height in centimeters E&M 2019-09-05 11:23:26 175.26 cm [facility] blood pressure, diastolic 2019-02-01 10:56:38 91 mm[Hg] [facility] blood pressure, systolic 2019-02-01 10:56:38 202 mm[Hg] [facility] oxygen saturation, oximetry 2019-02-01 10:56:38 97 % [facility] pulse rate 2019-02-01 10:56:38 59 /min [facility] E&M 2019-02-01 10:56:38 97.7 [degF] [facility] weight E&M 2019-02-01 10:56:38 212 [lb_av] [facility] E&M 2019-02-01 10:56:38 96.36 kg [facility] temperature site 2019-02-01 10:56:38 oral Lega [facility] height in centimeters E&M 2019-02-01 10:56:38 175.26 cm [facility] blood pressure, diastolic 2019-02-01 09:03:00 98 mm[Hg] [facility] blood pressure, systolic 2019-02-01 09:03:00 182 mm[Hg] [facility] oxygen saturation, oximetry 2019-02-01 09:03:00 97 % [facility] respiratory rate E&M 2019-02-01 09:03:00 12 /min [facility] pulse rate 2019-02-01 09:03:00 59 /min [facility] temperature E&M 2019-02-01 09:03:00 97.7 [degF] [facility] y [facility] weight E&M 2019-02-01 09:03:00 212 [lb_av] [facility] in [facility] E&M 2019-02-01 09:03:00 96.36 kg [facility] site 2019-02-01 09:03:00 oral Lega cy [facility] height in centimeters E&M 2019-02-01 09:03:00 175.26 cm [facility] oxygen saturation, oximetry 2018-12-15 12:46:55 97 % [facility] respiratory rate E&M 2018-12-15 12:46:55 18 /min [facility] pulse rate 2018-12-15 12:46:55 68 /min [facility] blood pressure, diastolic 2018-12-15 12:46:55 89 mm[Hg] [facility] blood pressure, systolic 2018-12-15 12:46:55 192 mm[Hg] [facility] temperature E&M 2018-12-15 12:46:55 97.5 [degF] [facility] y [facility] height in centimeters E&M 2018-12-15 12:46:55 175.26 cm [facility] site 2018-12-15 12:46:55 oral Lega cy [facility] weight E&M 2018-12-15 12:46:55 218 [lb_av] [facility] E&M 2018-12-15 12:46:55 99.09 kg [facility] blood pressure, diastolic 2018-09-19 08:40:31 84 mm[Hg] [facility] blood pressure, systolic 2018-09-19 08:40:31 191 mm[Hg] [facility] oxygen saturation, oximetry 2018-09-19 08:40:31 98 % [facility] respiratory rate E&M 2018-09-19 08:40:31 12 /min [facility] pulse rate 2018-09-19 08:40:31 58 /min [facility] 2018-09-19 08:40:31 oral Lega cy [facility] temperature E&M 2018-09-19 08:40:31 98.1 [degF] [facility] weight E&M 2018-09-19 08:40:31 221 [lb_av] [facility] weight in kilograms E&M 2018-09-19 08:40:31 100.45 kg [facility] height in centimeters E&M 2018-09-19 08:40:31 175.26 cm [facility] blood pressure, diastolic 2018-07-04 12:16:17 76 mm[Hg] [facility] blood pressure, systolic 2018-07-04 12:16:17 162 mm[Hg] [facility] pulse rate 2018-07-04 12:16:17 63 /min [facility] oxygen saturation, oximetry 2018-07-04 12:16:17 97 % [facility] temperature E&M 2018-07-04 12:16:17 98.3 [degF] [facility] y [facility] weight E&M 2018-07-04 12:16:17 215 [lb_av] [facility] E&M 2018-07-04 12:16:17 97.73 kg [facility] height in centimeters E&M 2018-07-04 12:16:17 175.26 cm [facility] temperature site 2018-05-09 10:11:25 oral Lega [facility] oxygen saturation, oximetry 2018-05-09 10:11:25 97 % [facility] blood pressure, diastolic 2018-05-09 10:11:25 90 mm[Hg] [facility] blood pressure, systolic 2018-05-09 10:11:25 171 mm[Hg] [facility] pulse rate 2018-05-09 10:11:25 59 /min [facility] E&M 2018-05-09 10:11:25 97.6 [degF] [facility] weight E&M 2018-05-09 10:11:25 208.44 [lb_av] [facility] weight in kilograms E&M 2018-05-09 10:11:25 94.75 kg [facility] height in centimeters E&M 2018-05-09 10:11:25 175.26 cm [facility] blood pressure, diastolic 2018-01-20 11:33:44 90 mm[Hg] [facility] blood pressure, systolic 2018-01-20 11:33:44 198 mm[Hg] [facility] oxygen saturation, oximetry 2018-01-20 11:33:44 97 % [facility] pulse rate 2018-01-20 11:33:44 60 /min [facility] 2018-01-20 11:33:44 tympanic [facility] temperature E&M 2018-01-20 11:33:44 95.6 [degF] [facility] weight E&M 2018-01-20 11:33:44 206 [lb_av] [facility] E&M 2018-01-20 11:33:44 93.64 kg [facility] height in centimeters E&M 2018-01-20 11:33:44 175.26 cm [facility] blood pressure, diastolic 2017-10-25 15:20:44 74 mm[Hg] [facility] blood pressure, systolic 2017-10-25 15:20:44 125 mm[Hg] [facility] pulse rate 2017-10-25 15:20:44 73 /min [facility] oxygen saturation, oximetry 2017-10-25 15:20:44 98 % [facility] temperature E&M 2017-10-25 15:20:44 97.6 [degF] [facility] y [facility] weight E&M 2017-10-25 15:20:44 199 [lb_av] [facility] E&M 2017-10-25 15:20:44 90.45 kg [facility] temperature site 2017-10-25 15:20:44 tympanic Lega [facility] height in centimeters E&M 2017-10-25 15:20:44 175.26 cm [facility] pulse rate 2017-08-02 16:08:02 78 /min [facility], diastolic 2017-08-02 16:08:02 69 mm[Hg] [facility] blood pressure, systolic 2017-08-02 16:08:02 110 mm[Hg] [facility] temperature E&M 2017-08-02 16:08:02 96.5 [degF] [facility] y [facility] weight E&M 2017-08-02 16:08:02 199.38 [lb_av] [facility] weight in kilograms E&M 2017-08-02 16:08:02 90.63 kg [facility] temperature site 2017-08-02 16:08:02 tympanic Lega [facility] height in centimeters E&M 2017-08-02 16:08:02 175.26 cm [facility] pulse rate 2017-03-29 09:49:20 61 /min [facility] blood pressure, diastolic 2017-03-29 09:49:20 87 mm[Hg] [facility] blood pressure, systolic 2017-03-29 09:49:20 173 mm[Hg] [facility] temperature E&M 2017-03-29 09:49:20 97.9 [degF] [facility] 2017-03-29 09:49:20 98 % [facility] weight E&M 2017-03-29 09:49:20 213.38 [lb_av] [facility] weight in kilograms E&M 2017-03-29 09:49:20 96.99 kg [facility] height in centimeters E&M 2017-03-29 09:49:20 175.26 cm [facility] temperature site 2017-03-29 09:49:20 tympanic Lega [facility] temperature site 2016-12-07 08:34:07 tympanic Lega [facility] pulse rate 2016-12-07 08:34:07 60 /min [facility], diastolic 2016-12-07 08:34:07 95 mm[Hg] [facility] blood pressure, systolic 2016-12-07 08:34:07 185 mm[Hg] [facility] oxygen saturation, oximetry 2016-12-07 08:34:07 99 % [facility] temperature E&M 2016-12-07 08:34:07 96.4 [degF] [facility] weight E&M 2016-12-07 08:34:07 218.38 [lb_av] [facility] weight in kilograms E&M 2016-12-07 08:34:07 99.26 kg [facility] height in centimeters E&M 2016-12-07 08:34:07 175.26 cm [facility] blood pressure, diastolic 2016-09-07 08:30:17 96 mm[Hg] [facility] blood pressure, systolic 2016-09-07 08:30:17 196 mm[Hg] [facility] oxygen saturation, oximetry 2016-09-07 08:30:17 99 % [facility] pulse rate 2016-09-07 08:30:17 66 /min [facility] E&M 2016-09-07 08:30:17 95.8 [degF] [facility] weight E&M 2016-09-07 08:30:17 222 [lb_av] [facility] E&M 2016-09-07 08:30:17 100.91 kg [facility] temperature site 2016-09-07 08:30:17 tympanic Lega [facility] height in centimeters E&M 2016-09-07 08:30:17 175.26 cm [facility] pulse rate 2016-05-26 08:28:37 62 /min [facility], diastolic 2016-05-26 08:28:37 85 mm[Hg] [facility] blood pressure, systolic 2016-05-26 08:28:37 160 mm[Hg] [facility] temperature E&M 2016-05-26 08:28:37 97.4 [degF] [facility] oxygen saturation, oximetry 2016-05-26 08:28:37 98 % [facility] weight E&M 2016-05-26 08:28:37 221.25 [lb_av] [facility] weight in kilograms E&M 2016-05-26 08:28:37 100.57 kg [facility] temperature site 2016-05-26 08:28:37 tympanic L[facility] cy [facility] height in centimeters E&M 2016-05-26 08:28:37 175.26 cm [facility] pulse rate 2016-02-10 08:56:23 64 /min [facility] blood pressure, diastolic 2016-02-10 08:56:23 92 mm[Hg] [facility] blood pressure, systolic 2016-02-10 08:56:23 172 mm[Hg] [facility] temperature E&M 2016-02-10 08:56:23 97.3 [degF] Leg[facility] y [facility] oxygen saturation, oximetry 2016-02-10 08:56:23 97 % [facility] weight E&M 2016-02-10 08:56:23 217 [lb_av] [facility] weight in kilograms E&M 2016-02-10 08:56:23 98.64 kg [facility] height in centimeters E&M 2016-02-10 08:56:23 175.26 cm [facility] temperature site 2016-02-10 08:56:23 [facility] 2015-11-21 15:02:24 80 /min [facility] blood pressure, diastolic 2015-11-21 15:02:24 96 mm[Hg] [facility] blood pressure, systolic 2015-11-21 15:02:24 167 mm[Hg] [facility] temperature site 2015-11-21 15:02:24 tympanic Lega [facility] temperature E&M 2015-11-21 15:02:24 97.0 [degF] [facility] oxygen saturation, oximetry 2015-11-21 15:02:24 98 % [facility] weight E&M 2015-11-21 15:02:24 206.25 [lb_av] [facility] weight in kilograms E&M 2015-11-21 15:02:24 93.75 kg [facility] height in centimeters E&M 2015-11-21 15:02:24 175.26 cm [facility] pulse rate 2015-10-28 10:04:20 68 /min [facility] blood pressure, diastolic 2015-10-28 10:04:20 87 mm[Hg] [facility] blood pressure, systolic 2015-10-28 10:04:20 149 mm[Hg] [facility] weight E&M 2015-10-28 10:04:20 204.13 [lb_av] [facility] weight in kilograms E&M 2015-10-28 10:04:20 92.79 kg [facility] oxygen saturation, oximetry 2015-10-28 10:04:20 97 % [facility] temperature E&M 2015-10-28 10:04:20 97.0 [degF] Leg y [facility] temperature site 2015-10-28 10:04:[facility] height in centimeters E&M 2015-10-28 10:04:20 175.26 cm [facility] pulse rate 2015-10-14 16:24:35 76 /min [facility] blood pressure, diastolic 2015-10-14 16:24:35 91 mm[Hg] [facility] blood pressure, systolic 2015-10-14 16:24:35 151 mm[Hg] [facility] temperature E&M 2015-10-14 16:24:35 97.4 [degF] [facility] oxygen saturation, oximetry 2015-10-14 16:24:35 97 % [facility] weight E&M 2015-10-14 16:24:35 202.38 [lb_av] [facility] weight in kilograms E&M 2015-10-14 16:24:35 91.99 kg [facility] height in centimeters E&M 2015-10-14 16:24:35 175.26 cm [facility] temperature site 2015-10-14 16:24:35 [facility] Procedures Procedure Date / Time Performed Performing Clinician [facility] e Magnetic resonance imaging of brain without contrast 2020-08-08 00:00:00 [facility] Computed tomography of brain without radiopaque contrast 2020-07 00:00:00 [facility] Ultrasound, renal 2020-08-05 00:00:00 [facility] Ultrasound guidance for vascular access 2020-08-05 00:00:00 [facility] US RENAL 2020-03-08 12:29:53 [place] Glucose Stick 2018-05-09 10:35:28 Jessica Martin [facility] Glucose Stick 2015-10-28 10:57:18 Ramiro Rizzo [facility] Glucose Stick 2015-10-14 17:13:27 Ramiro Rizzo [facility] Venipuncture 2015-10-14 17:12:33 Ramiro Rizzo [facility] Plan of Care Planned Activity Planned Date Details Comments Source Future Scheduled Test 2020-06-08 00:00:00 INFLUENZA VACCINE [code = INFLUENZA VACCINE] [facility] Scheduled Test 2015 00:00:00 COLONOSCOPY SCREEN ING [code = COLONOSCOPY SCREENING] [facility] Scheduled Test 2015 00:00:00 SHINGLES VACCINES (#1) [code = SHINGLES VACCINES (#1)] [facility] Scheduled Test 1975 00:00:00 DIABETES: RETINAL EYE EXAM [code = DIABETES: RETINAL EYE EXAM] [facility] Scheduled Test 1975 00:00:00 DIABETIC FOOT EXAM [code = DIABETIC FOOT EXAM] [facility] Scheduled Test 1975 00:00:00 URINE MICROALBUMIN [code = URINE MICROALBUMIN] [facility] Hypertension [facility] Encounters Start Date/Time End Date/Time Encounter Type Admission Type [facility] Care Department Encounter ID Source 2020-08-27 00:00:00 2020-08-27 00:00:00 Office Visit Eri Norman [id number] [facility] 2020-08-27 00:00:00 2020-08-27 00:00:00 Office Visit Angle Rossi [facility] Encounter/[id number] [facility] 2020-08-27 00:00:00 2020-08-27 00:00:00 Office Visit Eri Norman [facility] Encounter/[id number] [facility] 2020-08-26 00:00:00 2020-08-26 00:00:00 Office Visit Eri Norman [facility] Encounter/[id number] [facility] 2020-08-26 00:00:00 2020-08-26 00:00:00 Office Visit Eri Norman [facility] Encounter/[id number] [facility] 2020-08-26 00:00:00 2020-08-26 00:00:00 Office Visit Paula Melo, Radha Avila, Juan Luis Montesinos [id number] [facility] 2020-08-26 00:00:00 2020-08-26 00:00:00 Office Visit Eri Norman [facility] Encounter/[id number] [facility] 2020-08-23 00:00:00 2020-08-23 00:00:00 Office Visit Melissa Brock [facility] Encounter/[id number] [facility] 2020-08-23 00:00:00 2020-08-23 00:00:00 Office Visit Abelino Hewitt Violeta [facility] Encounter/[id number] [facility] 2020-08-19 00:00:00 2020-08-19 00:00:00 Office Visit Melissa Brock [facility] Encounter/[id number] [facility] [facility] 2020-[facility]-19 00:00:00 2020-08-19 00:00:00 Office Visit Abelino Hewitt Channin [facility] Encounter/[id number] [facility] 2020-08-19 00:00:00 2020-08-19 00:00:00 Office Visit Melissa Brock [facility] Encounter/[id number] [facility] 2020-08-17 00:00:00 2020-08-17 00:00:00 Office Visit Juan Luis Bennett [facility] Encounter/[id number] [facility] 2020-08-14 00:00:00 2020-08-14 00:00:00 Office Visit Eri Norman [facility] Encounter/[id number] [facility] 2020-08-04 21:25:00 2020-08-10 20:20:00 Discharged Inpatient 1 JESIKA BANDA [facility] [id number] [facility] 2020-08-10 00:00:00 2020-08-10 00:00:00 Office Visit Eri Norman willa [facility] Encounter/[id number] [facility] 2020-07-05 00:00:00 2020-07-05 00:00:00 Office Visit Zuri rebeccaPaula puri Tammy [facility], Paula Ben [facility]Adherence, Carla [facility] Encounter/[id number] [facility] 2020-04-17 00:00:00 2020-04-17 00:00:00 Office Visit AuraGerardo fallon [facility] Encounter/[id number] [facility] 2020-04-08 00:00:00 2020-04-08 00:00:00 Office Visit Rajinder Zendejas javier [facility] Encounter/[id number] [facility] 2020-04-02 00:00:00 2020-04-02 00:00:00 Office Visit Zuri rebeccaPaula puri MedAdherenceMary EllenMonique [facility] Encounter/[id number] [facility] 2020-03-26 00:00:00 2020-03-26 00:00:00 Office Visit AuraGerardo fallon [facility] Encounter/[id number] [facility] 2020-03-08 00:00:00 2020-03-08 00:00:00 Outpatient DANNY HOLDEN [facility] [id number] [facility] 2020-02-07 00:00:00 2020-02-07 00:00:00 Office Visit AuraGerardo fallon [facility] Encounter/[id number] [facility] 2020-02-07 00:00:00 2020-02-07 00:00:00 Office Visit AuraGerardo fallon [facility] Encounter/[id number] [facility] 2020-02-06 00:00:00 2020-02-06 00:00:00 Office Visit [place] Channin Acharya, Vianay [facility] Encounter/[id number] [facility] 2020-02-05 00:00:00 2020-02-05 00:00:00 Office Visit Gerardo Holden [facility] Encounter/[id number] [facility] 2020-02-01 00:00:00 2020-02-01 00:00:00 Office Visit Vannessa Martin gianfranco [facility] Encounter/[id number] [facility] 2020-01-30 00:00:00 2020-01-30 00:00:00 Office Visit Josette Archuleta [facility] Encounter/[id number] [facility] 2020-01-23 00:00:00 2020-01-23 00:00:00 Office Visit [place] Jonah [facility] Encounter/[id number] [facility] 2020-01-06 00:00:00 2020-01-06 00:00:00 Office Visit Gerardo Holden [facility] Encounter/[id number] [facility] 2020-01-06 00:00:00 2020-01-06 00:00:00 Office Visit Gerardo Holden [facility] Encounter/[id number] [facility] 2020-01-06 00:00:00 2020-01-06 00:00:00 Office Visit Gerardo Holden [facility] Encounter/[id number] [facility] 2020-01-04 00:00:00 2020-01-04 00:00:00 Office Visit Nirav Galvin Angelo S [facility] Encounter/[id number] [facility] 2019-11-29 00:00:00 2019-11-29 00:00:00 Office Visit Dimitry Soliz [facility] Encounter/[id number] [facility] 2019-11-21 00:00:00 2019-11-21 00:00:00 Office Visit [place] Mayeli [facility] Encounter/[id number] [facility] 2019-11-21 00:00:00 2019-11-21 00:00:00 Office Visit Eri Norman [facility] Encounter/[id number] [facility] 2019-11-21 00:00:00 2019-11-21 00:00:00 Office Visit Paula [facility]/[id number] [facility] 2019-11-14 00:00:00 2019-11-14 00:00:00 Office Visit Eri Norman [facility] Encounter/[id number] [facility] 2019-11-14 00:00:00 2019-11-14 00:00:00 Office Visit Paula Melo Tamika Foster, Nirav Bennett, Juan Luis Redman [facility] Encounter/[id number] [facility] 2019-11-13 00:00:00 2019-11-13 00:00:00 Office Visit Eri Norman [facility] Encounter/[id number] [facility] 2019-11-09 00:00:00 2019-11-09 00:00:00 Office Visit Eri Norman Wilda [facility] Encounter/[id number] [facility] 2019-11-09 00:00:00 2019-11-09 00:00:00 [facility]/[id number] [facility] 2019-11-09 00:00:00 2019-11-09 00:00:00 Office Visit Ignacio Baugh [facility] Encounter/[id number] [facility] 2019-10-23 00:00:00 2019-10-23 00:00:00 Office Visit Rajinder Zendejas [facility] Encounter/[id number] [facility] 2019-10-19 00:00:00 2019-10-19 00:00:00 Office Visit Eri Norman [facility] Encounter/[id number] [facility] 2019-10-07 23:22:00 2019-10-13 10:30:00 Discharged Inpatient 1 ROBBY LARSEN [facility] [id number] [facility] 2019-10-09 00:00:00 2019-10-09 00:00:00 Office Visit Inna Salterra [facility] Encounter/[id number] [facility] 2019-10-04 00:00:00 2019-10-04 00:00:00 Office Visit Juan Luis Bennett [facility] Encounter/[id number] [facility] 2019-10-02 00:00:00 2019-10-02 00:00:00 Office Visit Dimitry Soliz in [facility] Encounter/[id number] [facility] 2019-10-02 00:00:00 2019-10-02 00:00:00 Office Visit Marcial Solizl in [facility] Encounter/[id number] [facility] 2019-10-02 00:00:00 2019-10-02 00:00:00 Office Visit Dimitry Soliz in [facility] Encounter/[id number] [facility] 2019-10-02 00:00:00 2019-10-02 00:00:00 Office Visit Ramiro Rae Rinal [facility] Encounter/[id number] [facility] 2019-09-30 00:00:00 2019-09-30 00:00:00 Office Visit Eri Norman [facility] Encounter/[id number] [facility] 2019-09-29 00:00:00 2019-09-29 00:00:00 Office Visit Dimitry Soliz in [facility] Encounter/[id number] [facility] 2019-09-29 00:00:00 2019-09-29 00:00:00 Office Visit Dimitry Soliz in [facility] Encounter/[id number] [facility] 2019-09-29 00:00:00 2019-09-29 00:00:00 Office Visit Eri Norman [facility] Encounter/[id number] [facility] 2019-09-29 00:00:00 2019-09-29 00:00:00 Office Visit Paula Melo Co Shanna [facility] Encounter/[id number] [facility] 2019-09-29 00:00:00 2019-09-29 00:00:00 Office Visit Vannessa Martin [facility] Encounter/[id number] [facility] 2019-09-29 00:00:00 2019-09-29 00:00:00 Office Visit Jessica Thompson Nazjely Smith, Robert Cardenas, Victoria [facility] Encounter/[id number] [facility] 2019-09-28 00:00:00 2019-09-28 00:00:00 Office Visit Josette Archuleta [facility] Encounter/[id number] [facility] 2019-09-27 00:00:00 2019-09-27 00:00:00 Office Visit Eri Norman [facility] Encounter/[id number] [facility] 2019-09-27 00:00:00 2019-09-27 00:00:00 Office Visit Eri Norman LC Encounter/[id number] [facility] 2019-09-27 00:00:00 2019-09-27 00:00:00 Office Visit S Paula mensah, Co Юлия [facility] Encounter/[id number] [facility] 2019-09-27 00:00:00 2019-09-27 00:00:00 Office Visit Paula Melo MedAdherence,Kaylie [facility] Encounter/[id number] [facility] 2019-09-21 00:00:00 2019-09-21 00:00:00 Office Visit David Beltre ra LC Encounter/[id number] [facility] 2019-09-21 00:00:00 2019-09-21 00:00:00 Office Visit Eri Norman LC Encounter/[id number] [facility] 2019-09-21 00:00:00 2019-09-21 00:00:00 Office Visit Eri Norman LC Encounter/[id number] [facility] 2019-09-21 00:00:00 2019-09-21 00:00:00 Office Visit Eri Norman [facility] Encounter/[id number] [facility] 2019-09-21 00:00:00 2019-09-21 00:00:00 Office Visit Eri Norman [facility] Encounter/[id number] [facility] 2019-09-20 00:00:00 2019-09-20 00:00:00 Office Visit Juan Luis Bennett silvana [facility] Encounter/[id number] [facility] 2019-09-20 00:00:00 2019-09-20 00:00:00 Office Visit Juan Luis Bennett silvana [facility] Encounter/[id number] [facility] 2019-09-19 00:00:00 2019-09-19 00:00:00 Office Visit Paula Melo Jonah [facility] Encounter/[id number] [facility] 2019-09-19 00:00:00 2019-09-19 00:00:00 Office Visit Eri Norman Wilda [facility] Encounter/[id number] [facility] 2019-09-18 00:00:00 2019-09-18 00:00:00 Office Visit Eri Norman [facility] Encounter/[id number] [facility] 2019-09-16 00:00:00 2019-09-16 00:00:00 Office Visit Eri Norman [facility] Encounter/[id number] [facility] 2019-09-16 00:00:00 2019-09-16 00:00:00 Office Visit Eri Norman [facility] Encounter/[id number] [facility] 2019-09-16 00:00:00 2019-09-16 00:00:00 Office Visit Eri Norman LC Encounter/[id number] [facility] 2019-09-16 00:00:00 2019-09-16 00:00:00 Office Visit Eri Nomran LC Encounter/[id number] [facility] 2019-09-16 00:00:00 2019-09-16 00:00:00 Office Visit Paula Melo Rinal Moxey, Co Shanna [facility] Encounter/[id number] [facility] 2019-09-16 00:00:00 2019-09-16 00:00:00 Office Visit Paula Melo Co Shanna [facility] Encounter/[id number] [facility] 2019-09-05 00:00:00 2019-09-05 00:00:00 Office Visit Eri Norman [facility] Encounter/[id number] [facility] 2019-09-05 00:00:00 2019-09-05 00:00:00 Office Visit Eri Norman [facility] Encounter/[id number] [facility] 2019-09-05 00:00:00 2019-09-05 00:00:00 Office Visit Paula Melo Tamika Foster, Jonah Moxey, Co Shanna [facility] Encounter/[id number] [facility] 2019-08-26 19:35:00 2019-08-26 21:27:00 Departed Emergency Room 1 BONNIEREAL [facility] [id number] [facility] 2019-07-05 00:00:00 2019-07-05 00:00:00 Office Visit Juan Luis Bennett [facility] Encounter/[id number] [facility] 2019-06-27 00:00:00 2019-06-27 00:00:00 Office Visit Paula Melo MedAdherence,, [facility] Encounter/[id number] [facility] 2019-06-22 00:00:00 2019-06-22 00:00:00 Office Visit Vannessa Martin [facility] Encounter/[id number] [facility] 2019-02-24 00:00:00 2019-02-24 00:00:00 Office Visit Eri Norman [facility] Encounter/[id number] [facility] 2019-02-23 00:00:00 2019-02-23 00:00:00 Office Visit Fina Greene [facility] Encounter/[id number] [facility] 2019-02-22 00:00:00 2019-02-22 00:00:00 Office Visit Beth Alvares Paula Norman [facility] Encounter/[id number] [facility] 2019-02-18 00:00:00 2019-02-18 00:00:00 Office Visit Eri Norman [facility] Encounter/[id number] [facility] 2019-02-15 00:00:00 2019-02-15 00:00:00 Office Visit Eri Norman [facility] Encounter/[id number] [facility] 2019-02-01 00:00:00 2019-02-01 00:00:00 Office Visit Vannessa Martin [facility] Encounter/[id number] [facility] 2019-02-01 00:00:00 2019-02-01 00:00:00 Office Visit Jessica Thompson Nazjely [facility] Encounter/[id number] [facility] 2019-02-01 00:00:00 2019-02-01 00:00:00 Office Visit Eri Norman [facility] Encounter/[id number] [facility] 2019-02-01 00:00:00 2019-02-01 00:00:00 Office Visit Eri Norman [facility] Encounter/[id number] [facility] 2019-02-01 00:00:00 2019-02-01 00:00:00 Office Visit Paula Melo Loraina [facility] Encounter/[id number] [facility] 2019-01-29 00:00:00 2019-01-29 00:00:00 Office Visit Paula Melo Nazjely Lewis, Shaniqua [facility] Encounter/[id number] [facility] 2019-01-25 00:00:00 2019-01-25 00:00:00 Office Visit Eri Norman [facility] Encounter/[id number] [facility] 2019-01-25 00:00:00 2019-01-25 00:00:00 Office Visit Emerson Eri crouch [facility] Encounter/[id number] [facility] 2019-01-25 00:00:00 2019-01-25 00:00:00 Office Visit Vannessa Martin [facility] Encounter/[id number] [facility] 2019-01-10 00:00:00 2019-01-10 00:00:00 Office Visit Anh Samayoa [facility] Encounter/[id number] [facility] 2019-01-09 00:00:00 2019-01-09 00:00:00 Office Visit Linda Sotelo Miryam [facility] Encounter/[id number] [facility] 2018-12-20 00:00:00 2018-12-20 00:00:00 Office Visit Josette Archuleta [facility] Encounter/[id number] [facility] 2018-12-19 00:00:00 2018-12-19 00:00:00 Office Visit Ramiro Santos Tanisha [facility] Encounter/[id number] [facility] 2018-12-15 00:00:00 2018-12-15 00:00:00 Office Visit Eri Norman [facility] Encounter/[id number] [facility] 2018-12-15 00:00:00 2018-12-15 00:00:00 Office Visit Paula Melo Dulce Garcia, Nazjely [facility] Encounter/[id number] [facility] 2018-11-25 00:00:00 2018-11-25 00:00:00 Office Visit Vannessa Martin [facility] Encounter/[id number] [facility] 2018-10-25 00:00:00 2018-10-25 00:00:00 Office Visit Angle Rossi [facility] Encounter/[id number] [facility] 2018-10-20 00:00:00 2018-10-20 00:00:00 Office Visit [place] Inez [facility] Encounter/[id number] [facility] 2018-10-20 00:00:00 2018-10-20 00:00:00 Office Visit Anh Samayoa [facility] Encounter/[id number] [facility] 2018-10-03 00:00:00 2018-10-03 00:00:00 Office Visit Jesus Gonzalez [facility] Encounter/[id number] [facility] 2018-09-19 00:00:00 2018-09-19 00:00:00 Office Visit Shae Malin [facility] Encounter/[id number] [facility] 2018-09-19 00:00:00 2018-09-19 00:00:00 Office Visit Zari Manning do LC [facility] Encounter/[id number] [facility] 2018-09-19 00:00:00 2018-09-19 00:00:00 Office Visit Status, Fax L[facility] Encounter/[id number] [facility] 2018-09-19 00:00:00 2018-09-19 00:00:00 Office Visit Status, Fax [facility] Encounter/[id number] [facility] 2018-09-19 00:00:00 2018-09-19 00:00:00 Office Visit Jennifer Hager Armando [facility] Encounter/[id number] [facility] 2018-09-19 00:00:00 2018-09-19 00:00:00 Office Visit Status, Fax [facility] Encounter/[id number] [facility] 2018-09-19 00:00:00 2018-09-19 00:00:00 Office Visit Status, Fax [facility] Encounter/[id number] [facility] 2018-09-19 00:00:00 2018-09-19 00:00:00 Office Visit Status, Fax [facility] Encounter/[id number] [facility] 2018-09-19 00:00:00 2018-09-19 00:00:00 Office Visit Jennifer Hager Armando [facility] Encounter/[id number] [facility] 2018-09-19 00:00:00 2018-09-19 00:00:00 Office Visit Shae Malin satnam LC LC Encounter/[id number] [facility] 2018-09-19 00:00:00 2018-09-19 00:00:00 Office Visit Shae Malin satnam [facility] Encounter/[id number] [facility] 2018-09-19 00:00:00 2018-09-19 00:00:00 Office Visit Jennifer Hager Carolina Robinson, Anh Kumar Kimberly Diego-Molina, Aamir Solano [facility] Encounter/[id number] [facility] 2018-09-03 00:00:00 2018-09-03 00:00:00 Office Visit Lilo Erazo [facility] Encounter/[id number] [facility] 2018-08-29 00:00:00 2018-08-29 00:00:00 Office Visit Josette Archuleta [facility] Encounter/[id number] [facility] 2018-08-24 00:00:00 2018-08-24 00:00:00 Office Visit Ramiro Santos Inez [facility] Encounter/[id number] [facility] 2018-08-22 00:00:00 2018-08-22 00:00:00 Office Visit Ramiro Rizzo [facility] Encounter/[id number] [facility] 2018-07-04 00:00:00 2018-07-04 00:00:00 Office Visit Ramiro Rizzo LC Encounter/[id number] [facility] 2018-07-04 00:00:00 2018-07-04 00:00:00 Office Visit Ramiro Santos Erron [facility] Encounter/[id number] [facility] 2018-06-20 00:00:00 2018-06-20 00:00:00 Office Visit Martin, Vannessa gianfranco [facility] Encounter/[id number] [facility] 2018-06-07 00:00:00 2018-06-07 00:00:00 Office Visit Beatris Escobedo L[facility] Encounter/[id number] [facility] 2018-05-23 00:00:00 2018-05-23 00:00:00 Office Visit Freddie Hector quijanoAlice [facility] Encounter/[id number] [facility] 2018-05-10 00:00:00 2018-05-10 00:00:00 Office Visit Janice Rich [facility] Encounter/[id number] [facility] 2018-05-09 00:00:00 2018-05-09 00:00:00 Office Visit Jessica Thompson Ethel [facility] Encounter/[id number] [facility] 2018-05-09 00:00:00 2018-05-09 00:00:00 Office Visit Vannessa Martin [facility] Encounter/[id number] [facility] 2018-05-09 00:00:00 2018-05-09 00:00:00 Office Visit Jessica Thompson Norma De La Cruz, Jasmin Linzy, Ethel [facility] Encounter/[id number] [facility] 2018-04-18 00:00:00 2018-04-18 00:00:00 Office Visit Vannessa Martin L[facility] Encounter/[id number] [facility] 2018-04-18 00:00:00 2018-04-18 00:00:00 Office Visit Vannessa Martin L[facility] Encounter/[id number] [facility] 2018-04-18 00:00:00 2018-04-18 00:00:00 Office Visit Vannessa Martin L[facility] Encounter/[id number] [facility] 2018-04-11 00:00:00 2018-04-11 00:00:00 Office Visit Vannessa Martin LC [facility] Encounter/[id number] [facility] 2018-04-09 00:00:00 2018-04-09 00:00:00 Office Visit Vannessa Martin L[facility] Encounter/[id number] [facility] 2018-02-01 00:00:00 2018-02-01 00:00:00 Office Visit Josette Archuleta L[facility] Encounter/[id number] [facility] 2018-01-20 00:00:00 2018-01-20 00:00:00 Office Visit Vannessa Martin [facility] Encounter/[id number] [facility] 2018-01-20 00:00:00 2018-01-20 00:00:00 Office Visit Jessica Thompson, Aydee Bryson, Ana Laura Grubbs [facility] Encounter/[id number] [facility] 2018-01-14 00:00:00 2018-01-14 00:00:00 Office Visit Fina Greene LC [facility] Encounter/[id number] [facility] 2018-01-13 00:00:00 2018-01-13 00:00:00 Office Visit Ramiro Santos Nohemi LC LC Encounter/[id number] [facility] 2018-01-11 00:00:00 2018-01-11 00:00:00 Office Visit Ramiro Rizzo [facility] Encounter/[id number] [facility] 2017-10-25 00:00:00 2017-10-25 00:00:00 Office Visit Ramiro Rizzo [facility] Encounter/[id number] [facility] 2017-10-25 00:00:00 2017-10-25 00:00:00 Office Visit Ramiro Rizzo [facility] Encounter/[id number] [facility] 2017-10-25 00:00:00 2017-10-25 00:00:00 Office Visit Ramiro Rizzo [facility] Encounter/[id number] [facility] 2017-10-25 00:00:00 2017-10-25 00:00:00 Office Visit Ramiro Santos Zachary Arellano LC LC Encounter/[id number] [facility] 2017-10-20 00:00:00 2017-10-20 00:00:00 Office Visit Ramiro Santos Peyton Law LC [facility] Encounter/[id number] [facility] 2017-10-05 00:00:00 2017-10-05 00:00:00 Office Visit Ramiro Rizzo [facility] Encounter/[id number] [facility] 2017-10-05 00:00:00 2017-10-05 00:00:00 Office Visit Ramiro Rizzo LC Encounter/[id number] [facility] 2017-08-16 00:00:00 2017-08-16 00:00:00 Office Visit Ramiro Rizzo [facility] Encounter/[id number] [facility] 2017-08-16 00:00:00 2017-08-16 00:00:00 Office Visit Ramiro Rizzo [facility] Encounter/[id number] [facility] 2017-08-16 00:00:00 2017-08-16 00:00:00 Office Visit Ramiro Rizzo LC Encounter/[id number] [facility] 2017-08-04 00:00:00 2017-08-04 00:00:00 Office Visit Status, Fax L[facility] Encounter/[id number] [facility] 2017-08-04 00:00:00 2017-08-04 00:00:00 Office Visit Status, Fax [facility] Encounter/[id number] [facility] 2017-08-04 00:00:00 2017-08-04 00:00:00 Office Visit Status, Fax L[facility] Encounter/[id number] [facility] 2017-08-02 00:00:00 2017-08-02 00:00:00 Office Visit Ramiro Rizzo [facility] Encounter/[id number] [facility] 2017-08-02 00:00:00 2017-08-02 00:00:00 Office Visit Ramiro Rizzo [facility] Encounter/[id number] [facility] 2017-08-02 00:00:00 2017-08-02 00:00:00 Office Visit Ramiro Santos Hilda Callis, Erron Robinson, Tamika [facility] Encounter/[id number] [facility] 2017-05-04 00:00:00 2017-05-04 00:00:00 Office Visit Rafael Lacey [facility] Encounter/[id number] [facility] 2017-04-13 00:00:00 2017-04-13 00:00:00 Office Visit Ramiro Santos, Dunia Rodriguez, Karyna Ragsdale, Karen العراقي [facility] Encounter/[id number] [facility] 2017-03-31 00:00:00 2017-03-31 00:00:00 Office Visit Ramiro Rizzo [facility] Encounter/[id number] [facility] 2017-03-29 00:00:00 2017-03-29 00:00:00 Office Visit Ramiro Rizzo [facility] Encounter/[id number] [facility] [facility] 2017-03-29 00:00:00 2017-03-29 00:00:00 Office Visit Ramiro Rizzo [facility] Encounter/[id number] [facility] 2017-03-29 00:00:00 2017-03-29 00:00:00 Office Visit Ramiro Sanots Erron [facility] Encounter/[id number] [facility]ly [facility] 2017-03-03 00:00:00 2017-03-03 00:00:[address] [facility] Encounter/[id number] [facility] 2017-03-02 00:00:00 2017-03-02 00:00:00 Office Visit Ramiro Santos Lori [facility] Encounter/[id number] [facility] 2016-12-10 00:00:00 2016-12-10 00:00:00 Office Visit Ramiro Rizzo [facility] Encounter/[id number] [facility] 2016-12-07 00:00:00 2016-12-07 00:00:00 Office Visit Ramiro Rizzo [facility] Encounter/[id number] [facility] 2016-12-07 00:00:00 2016-12-07 00:00:00 Office Visit Ramiro Rizzo [facility] Encounter/[id number] [facility] 2016-12-07 00:00:00 2016-12-07 00:00:00 Office Visit Ramiro Santos Nazjely [facility] Encounter/[id number] [facility] 2016-09-07 00:00:00 2016-09-07 00:00:00 Office Visit Ramiro Rizzo [facility] Encounter/[id number] [facility] 2016-09-07 00:00:00 2016-09-07 00:00:00 Office Visit Ramiro Rizzo [facility] Encounter/[id number] [facility] 2016-09-07 00:00:00 2016-09-07 00:00:00 Office Visit Ramiro Santos Janell [facility] Encounter/[id number] [facility] 2016-09-04 00:00:00 2016-09-04 00:00:00 Office Visit Demian Givens [facility] Encounter/[id number] [facility] 2016-08-31 00:00:00 2016-08-31 00:00:00 Office Visit Anna Jose [facility] Encounter/[id number] [facility] 2016-08-30 00:00:00 2016-08-30 00:00:00 Office Visit Anna Jose [facility] Encounter/[id number] [facility] 2016-08-24 00:00:00 2016-08-24 00:00:00 [facility]/[id number] [facility] 2016-08-24 00:00:00 2016-08-24 00:00:00 [facility]/[id number] [facility] 2016-05-26 00:00:00 2016-05-26 00:00:00 [facility]/[id number] [facility] 2016-05-26 00:00:00 2016-05-26 00:00:00 [facility]/[id number] [facility] 2016-05-12 00:00:00 2016-05-12 00:00:00 [facility]/[id number] [facility] 2016-02-10 00:00:00 2016-02-10 00:00:00 Office Visit Ramiro Rizzo [facility] Encounter/[id number] [facility] 2016-02-10 00:00:00 2016-02-10 00:00:00 Office Visit Ramiro Rizzo [facility] Encounter/[id number] [facility] 2016-02-10 00:00:00 2016-02-10 00:00:00 Office Visit Ramiro Santos Erron [facility] Encounter/[id number] [facility] 2016-02-03 00:00:00 2016-02-03 00:00:00 Office Visit Ramiro Rizzo [facility] Encounter/[id number] [facility] 2016-01-27 00:00:00 2016-01-27 00:00:00 Office Visit Ramiro Rizzo [facility] Encounter/[id number] [facility] 2016-01-27 00:00:00 2016-01-27 00:00:00 Office Visit Av Tinajero [facility] Encounter/[id number] [facility] 2015-11-21 00:00:00 2015-11-21 00:00:00 [facility]/[id number] [facility] 2015-11-21 00:00:00 2015-11-21 00:00:00 Office Visit Ramiro Santos Erron [facility] Encounter/[id number] [facility] 2015-10-28 00:00:00 2015-10-28 00:00:00 Office Visit Ramiro Rizzo [facility] Encounter/[id number] [facility] 2015-10-28 00:00:00 2015-10-28 00:00:00 Office Visit Ramiro Rizzo [facility] Encounter/[id number] [facility] 2015-10-28 00:00:00 2015-10-28 00:00:00 [facility]/[id number] [facility] 2015-10-28 00:00:00 2015-10-28 00:00:00 Office Visit Ramiro Rizzo [facility] Encounter/[id number] [facility] 2015-10-28 00:00:00 2015-10-28 00:00:00 Office Visit Ramiro Santos Erron [facility] Encounter/[id number] [facility] 2015-10-17 00:00:00 2015-10-17 00:00:00 Office Visit Ramiro Rizzo [facility] Encounter/[id number] [facility] 2015-10-14 00:00:00 2015-10-14 00:00:00 Office Visit Ramiro Rizzo [facility] Encounter/[id number] [facility] 2015-10-14 00:00:00 2015-10-14 00:00:00 Office Visit Ramiro Rizzo [facility] Encounter/[id number] [facility] 2015-10-14 00:00:00 2015-10-14 00:00:00 Office Visit Ramiro Rizzo [facility] Encounter/[id number] [facility] 2015-10-14 00:00:00 2015-10-14 00:00:00 Office Visit Esther Reed viviane [facility] Encounter/[id number] [facility] 2015-10-14 00:00:00 2015-10-14 00:00:00 Office Visit Esther Reed viviane [facility] Encounter/[id number] [facility] 2015-10-14 00:00:00 2015-10-14 00:00:00 Office Visit Ramiro Rizzo [facility] Encounter/[id number] [facility] 2015-10-14 00:00:00 2015-10-14 00:00:00 Office Visit Ramiro Santos Erron [facility] Encounter/[id number] [facility] 2015-10-14 00:00:00 2015-10-14 00:00:00 Office Visit Ramiro Rizzo [facility] Encounter/[id number] [facility] 2015-09-24 00:00:00 2015-09-24 00:00:00 Office Visit Av Tinajero [facility] Encounter/[id number] [facility] 2015-09-24 00:00:00 2015-09-24 00:00:00 Office Visit TinajeroAv mann [facility] Encounter/[id number] [facility] Results Test Description Test Time Test Comments Results Result Comments Source CT ABDOMEN/PELVIS W 2020-09-09 20:20:00 [facility] : 1965 Sex: M [facility] [address] [address] Patient Name: PRISCILLA ZAMUDIO MR #: [id number] : 1965 Age/Sex: 55/M Req #: [id number] Adm Physician: Ordered by: RASHI STORM DO Report #: [id number] Location: ER Room/Bed: Procedure: [id number] CT/CT ABDOMEN/PELVIS W Exam Date: 09/09/20 Exam Time: 1850 REPORT STATUS: Signed EXAM: CT Abdomen and Pelvis WITH contrast INDICATION: Scrotal pain COMPARISON: Same day scrotal ultrasound. CT of the abdomen/pelvis on 10/08/2019. TECHNIQUE: Abdomen and pelvis were scanned utilizing a multidetector helical scanner from the lung base to the pubic symphysis after administration of IV contrast. Coronal and sagittal reformations were obtained. Routine protocol was performed. Scan was performed when during portal venous phase. IV CONTRAST: 100 mL of Isovue 370 ORAL CONTRAST: None COMPLICATIONS: None RADIATION DOSE: Total DLP: 669 mGy*cm Estimated effective dose: (DLP x 0.015 x size factor) mSv CTDIvol has been reviewed. It is below the limits set by the Radiation Protocol Committee (RPC). Dose modulation, iterative reconstruction, and/or weight based adjustment of the mA/kV was utilized to reduce the radiation dose to as low as reasonably achievable. FINDINGS: LINES and TUBES: None. LOWER THORAX: Unremarkable HEPATOBILIARY: No focal hepatic lesions. No biliary ductal dilation. GALLBLADDER: No radio-opaque stones or sludge. No wall thickening. SPLEEN: No splenomegaly. PANCREAS: No focal masses or curt ronni dilatation. ADRENALS: No adrenal nodules KIDNEYS/URETERS: Bilateral kidneys have hypoenhancement. No hydronephrosis. No cystic or solid mass lesions. No stones. There is nonspecific perinephric fat stranding bilaterally. GI TRACT: Circumferential wall thickness of the rectum. No abnormal distention, wall thickening, or evidence of bowel obstruction. Appendix is normal. PELVIC ORGANS/BLADDER: Unremarkable. LYMPH NODES: No lymphadenopathy. VESSELS: Scattered mild arterial vascular calcifications. PERITONEUM / RETROPERITONEUM: No free air or fluid. BONES: There are degenerative changes in the spine. SOFT TISSUES: There is scrotal soft tissue edema and redemonstration of multiple penile calcifications. There is a focus of air in the distal penis , likely from recent [place]tr[place] catheterization. There is nonspecific diffuse soft tissue edema of the bilateral upper thigh extending to the midabdomen. Prominent bilateral inguinal lymph nodes unchanged from prior examination. IMPRESSION: 1. Nonspecific scrotal soft tissue edema. Redemonstration of multiple penile calcifications which are unchanged from prior examination. Findings are indeterminate and may be related to ongoing infectious or inflammatory process. Urology consultation should be considered. 2. Hypoenhancing kidneys with nonspecific perinephric fat stranding. Findings are nonspecific but can be suggestive of pyelonephritis and/or medical renal disease. 3. Circumferential wall thickening of the rectum which may be due to underdistention. However, proctitis can have a similar appearance and should be considered. Signed by: Sebastian Walls MD on 09/09/2020 8:47 PM Dictated By: SEBASTIAN WALLS MD 46 Transcribed By: KEN on 09/09/202046 COPY TO: RASHI STORM DO TESTICULAR 2020-09-09 18:45:00 [facility] : 1965 Sex: M [address] [address] Patient Name: PRISCILLA ZAMUDIO MR #: [id number] : 1965 Age/Sex: 55/M Req #: [id number] [facility] Physician: SAILAJA MYERS MD Ordered by: RASHI STORM DO Report #: [id number] Location: MED/SURG3 Room/Bed: [facility] Procedure: [id number] US/US TESTICULAR Exam Date: 09/09/20 Exam Time: 1621 REPORT STATUS: Signed EXAM: Scrotal Ultrasound with Duplex INDICATION: Testicular pain and swelling. COMPARISON: CT abdomen/pelvis on 10/08/2019. TECHNIQUE: Transverse and longitudinal images were obtained of the scrotum with grayscale imaging, color Doppler and spectral waveform analysis. FINDINGS: Right testis: Size: 4.1 x 2.1 x 2.6 cm, normal in size. Echogenicity: Normal Mass/Cysts: None Left testis: Size: 3.8 x 2.0 x 2.7 cm, normal in size. Echogenicity: Normal Mass/Cysts: None Epididymis: The right epididymis measures 1.2 x 1.0 x 0.8 cm and the left measures 1.4 x 1.0 x 0.9 cm. Appearance: Normal in size without increased vascularity. Mass/Cysts: None Extratesticular: Masses: None Hydrocele: None Varicocele: None Others: There are enlarged lymph nodes in the bilateral inguinal area measuring 4.0 x 1.3 x 2.4 cm on the right and 2.5 x 1.0 x 1.5 cm and the left. Morphology demonstrates normal fatty hilum. This finding is similar in appearance when compared to CT of the abdomen/pelvis on 10/08/2019. Doppler: Normal arterial flow to both testes and symmetrical flow on color Doppler evaluation is seen. No evidence of testicular torsion. IMPRESSION: 1. No evidence of testicular torsion. No evidence of epididymoorchitis. 2. Enlarged bilateral inguinal nodes have normal morphology and are unchanged. Signed by: Sebastian Walls MD on 09/09/2020 6:51 PM Dictated By: SEBASTIAN WALLS MD 09 Transcribed By: KEN on 09/10/201409 COPY TO: RASHI STORM DO TESTICULAR DOPPLER [facility] 2020-09-09 18:45:00 [facility] : 1965 Sex: M [facility] [address] [place] [address] Patient Name: PRISCILLA ZAMUDIO MR #: [id number] : 1965 Age/Sex: 55/M Req #: [id number] [facility] Physician: SAILAJA MYERS MD Ordered by: RASHI STORM DO Report #: [id number] Location: MED/SURG3 Room/Bed: 289 Procedure: [id number] US/US TESTICULAR DOPPLER LTD Exam Date: 09/09/20 Exam Time: 1621 REPORT STATUS: Signed EXAM: Scrotal Ultrasound with Duplex INDICATION: Testicular pain and swelling. COMPARISON: CT abdomen/pelvis on 10/08/2019. TECHNIQUE: Transverse and longitudinal images were obtained of the scrotum with grayscale imaging, color Doppler and spectral waveform analysis. FINDINGS: Right testis: Size: 4.1 x 2.1 x 2.6 cm, normal in size. Echogenicity: Normal Mass/Cysts: None Left testis: Size: 3.8 x 2.0 x 2.7 cm, normal in size. Echogenicity: Normal Mass/Cysts: None Epididymis: The right epididymis measures 1.2 x 1.0 x 0.8 cm and the left measures 1.4 x 1.0 x 0.9 cm. Appearance: Normal in size without increased vascularity. Mass/Cysts: None Extratesticular: Masses: None Hydrocele: None Varicocele: None Others: There are enlarged lymph nodes in the bilateral inguinal area measuring 4.0 x 1.3 x 2.4 cm on the right and 2.5 x 1.0 x 1.5 cm and the left. Morphology demonstrates normal fatty hilum. This finding is similar in appearance when compared to CT of the abdomen/pelvis on 10/08/2019. Doppler: Normal arterial flow to both testes and symmetrical flow on color Doppler evaluation is seen. No evidence of testicular torsion. IMPR ESSION: 1. No evidence of testicular torsion. No evidence of epididymoorchitis. 2. Enlarged bilateral inguinal nodes have normal morphology and are unchanged. Signed by: Sebastian Walls MD on 09/09/2020 6:51 PM Dictated By: SEBASTIAN WALLS MD 1410 Transcribed By: KEN on 09/10/20 1410 COPY TO: RASHI STORM DO immature granulocytes, percentage of total cells, blood 2019 12:37:00 Test Item immature granulocytes, percentage of total cells, bloo d (test code = 00432-8) 1 % [facility], upzvxyxi9218-77-13 12:37:00* Test Item Value Reference Range Interpretation Comments basophil count, absolute (test code = 03532-3) 0.1 x10E3/uL 0.0-0.2 [facility] HealthEosinophil Absolute Opzuo4679-40-32 12:37:00* Test Item Value Reference Range Interpretation Comments Eosinophil Absolute Count (test code = 20210-5) 0.5 X10E3/UL 0.0-0. 4 H [facility] Healthmonocyte count, blood, zwmvnfcbw9535-33-49 12:37:00* Test Item Value Reference Range Interpretation Comments monocyte count, blood, automated (test code = 742-7) 1.4 X10E3/UL 0 .1-0.9 H [facility] Hospitallymph[facility] count, blood, yblptttxu7582-24-57 12:37:00* Test Item Value Reference Range Interpretation Comments lymphocyte count, blood, automated (test code = 731-0) 1.4 X10E3/UL 0.7-3.1 [facility] HospitalAbsolute Jnhjikginjp8483-76-20 12:37:00* Test Item Value Reference Range Interpretation Comments Absolute Neutrophils (test code = 01393-9) 10.8 X10E3/UL 1.4-7.0 H [facility] Healthbasophils as percent of blood tktevfuvhg3248-08-22 12:37:00* Test Item Value Reference Range Interpretation Comments basophils as percent of blood leukocytes (test code = 707-0) 1 % [facility] Healtheosinophils as percent of blood yfqutprzfk1429-13-71 12:37:00* Test Item Value Reference Range Interpretation Comments eosinophils as percent of blood leukocytes (test code = 713-8) 3 % [facility] Healthmonocytes as percent of blood cjdeztamht5314-72-64 12:37:00* Test Item Value Reference Range Interpretation Comments monocytes as percent of blood leukocytes (test code = 5905-5) 10 % [facility] Hospitallymphocytes as percent of blood avhosaioei7039-18-04 12:37:00* Test Item Value Reference Range Interpretation Comments lymphocytes as percent of blood leukocytes (test code = 736-9) 10 % [facility] Healthneutrophils as percent of blood zohwxeuptr5857-14-48 12:37:00* Test Item Value Reference Range Interpretation Comments neutrophils as percent of blood leukocytes (test code = 770-8) 75 % [facility] Hospitalplatelet vmwni7503-81-32 12:37:00* Test Item Value Reference Range Interpretation Comments platelet count (test code = 777-3) 415 X10E3/UL 150-450 [facility] Hospitalred blood cell distribution lfapn6822-12-40 12:37:00* Test Item Value Reference Range Interpretation Comments red blood cell distribution width (test code = 788-0) 13.0 % 11.6-15.4 [facility] corpuscular hemoglobin concentration, DHF9389-99-09 12:37:00* Test Item Value Reference Range Interpretation Comments mean corpuscular hemoglobin concentration, RBC (test code = 786-4) 33.2 G/DL 31.5-35.7 [facility] corpuscular hemoglobin, XSR3706-06-80 12:37:00* Test Item Value Reference Range Interpretation Comments mean corpuscular hemoglobin, RBC (test code = 785-6) 30.4 pg 2 6.6-33.0 [facility] corpuscular volume, YFR5383-34-46 12:37:00* Test Item Value Reference Range Interpretation Comments mean corpuscular volume, RBC (test code = 787-2) 91 fL 79-97 [facility] Hospitalhematocrit, wjynx4535-79-22 12:37:00* Test Item Value Reference Range Interpretation Comments hematocrit, blood (test code = 4544-3) 27.7 % 37.5-51.0 L [facility] Hospitalhemoglobin, ddkcp3544-95-89 12:37:00* Test Item Value Reference Range Interpretation Comments hemoglobin, blood (test code = 718-7) 9.2 g/dL 13.0-17.7 L [facility] Hospitalerythrocyte (RBC) dytgf7087-47-80 12:37:00* Test Item Value Reference Range Interpretation Comments erythrocyte (RBC) count (test code = 789-8) 3.03 X10E6/UL 4.14-5.80 L [facility] Hospitalleukocyte count, khmax1937-63-61 12:37:00* Test Item Value Reference Range Interpretation Comments leukocyte count, blood (test code = 6690-2) 14.2 X10E3/UL 3.4-10.8 H [facility] Hospitalblood glucose, vwaxox4310-88-48 09:44:21* Test Item Value Reference Range Interpretation Comments blood glucose, random (test code = 2339-0) 104 mg/dL [facility] Hospitalwound vsusrbe0406-53-04 11:48:00* Test Item Value Reference Range Interpretation Comments wound culture (test code = 6462-6) Final report [facility] Hospitalvitamin D 25-hydroxy, vhevs3653-16-22 08:48:00* Test Item Value Reference Range Interpretation Comments vitamin D 25-hydroxy, serum (test code = 00940-6) 31.7 ng/mL 30.0 -100.0 [facility] Hospitalhemoglobin A1C, blood, as % of total boxbfwmwuq8318-42-64 08:48:00* Test Item Value Reference Range Interpretation Comments hemoglobin A1C, blood, as % of total hemoglobin (test code = 4548-4) 5.2 % 4.8-5.6 [facility] Hospitalmicroalbumin/creatinine ratio, armkx6908-28-79 08:48:00* Test Item Value Reference Range Interpretation Comments microalbumin/creatinine ratio, urine (test code = 87253-6) 6082 MG/G CREAT 0-29 H [facility] Hospitalmicroalbumin/total urine tvxibn7590-94-14 08:48:00* Test Item Value Reference Range Interpretation Comments microalbumin/total urine volume (test code = 27261-1) 3016.6 mg/L [facility] Hospitalcreatinine, random, dbumu3087-14-43 08:48:00* Test Item Value Reference Range Interpretation Comments creatinine, random, urine (test code = 2161-8) 49.6 mg/dL [facility] HospitalLDL cholesterol, iwpkm2187-39-45 08:48:00* Test Item Value Reference Range Interpretation Comments LDL cholesterol, serum (test code = 2089-1) 32 mg/dL 0-99 [facility] low density rqknhmwhgscq2811-49-52 08:48:00* Test Item Value Reference Range Interpretation Comments very low density lipoproteins (test code = 2091-7) 18 mg/dL 5-4 0 [facility] HospitalHDL cholesterol, wvxnx1641-47-72 08:48:00* Test Item Value Reference Range Interpretation Comments HDL cholesterol, serum (test code = 2085-9) 62 mg/dL >39 [facility] Hospitaltriglyceride, serum, apezzcu9534-01-17 08:48:00* Test Item Value Reference Range Interpretation Comments triglyceride, serum, fasting (test code = 2571-8) 94 mg/dL 0-14 9 [facility] Hospitalcholesterol, eifoz4891-79-47 08:48:00* Test Item Value Reference Range Interpretation Comments cholesterol, serum (test code = 2093-3) 112 mg/dL 100-199 [facility] Hospitalbacteria, urine egfdzhckgr3941-83-67 08:48:00* Test Item Value Reference Range Interpretation Comments bacteria, urine microscopy (test code = 5769-5) None seen None s een/Few [facility] Hospitalepithelial cells, wyprq3149-68-30 08:48:00* Test Item Value Reference Range Interpretation Comments epithelial cells, urine (test code = 5787-7) 0-10 0-10 [facility] HospitalRBC, Iqild3699-73-64 08:48:00* Test Item Value Reference Range Interpretation Comments RBC, Urine (test code = 28721-8) 3-10 /hpf 0-[address] [facility] urine on uiqotympms2802-78-21 08:48:00* Test Item Value Reference Range Interpretation Comments WBC urine on microscopy (test code = 1016) 0-5 /hpf 0-5 [facility] Hospitalurinalysis, microscopic ucickmqhang5949-71-87 08:48:00* Test Item Value Reference Range Interpretation Comments urinalysis, microscopic examination (test code = 43131-3) See below : [facility] Hospitalnitrate, gvlau0409-69-87 08:48:00* Test Item Value Reference Range Interpretation Comments nitrate, urine (test code = 05965-8) Negative Negative [facility] Hospitalurobilinogen, urine, semiquantitative (dipstick) 2020-08-14 08:48:00* Test Item Value Reference Range Interpretation Comments urobilinogen, urine, semiquantitative (dipstick) (test code = 5818-0) 0.2 0.2-1.0 [facility] Hospitalbilirubin, tutds5727-58-88 08:48:00* Test Item Value Reference Range Interpretation Comments bilirubin, urine (test code = 5770-3) Negative Negative [facility] Hospitalketones, urine, by test eauen0573-75-10 08:48:00* Test Item Value Reference Range Interpretation Comments ketones, urine, by test strip (test code = 5797-6) Negative Neg ative [facility] Hospitalglucose, urine, pfmaakbleaeoglhg7808-35-23 08:48:00* Test Item Value Reference Range Interpretation Comments glucose, urine, semiquantitative (test code = 5792-7) Trace Negative A [facility] Hospitalprotein, urine, semiquantitative (dipstick)2020-08-14 08:48:00* Test Item Value Reference Range Interpretation Comments protein, urine, semiquantitative (dipstick) (test code = 175 3-3) 3+ Negative/Trace A [facility] Hospitalleukocyte esterase, urine, by xgylkolv1248-83-91 08:48:00 * Test Item Value Reference Range Interpretation Comments leukocyte esterase, urine, by dipstick (test code = 5799-2) Negativ e Negative [facility] Hospitalappearance, rgcxx0901-91-26 08:48:00* Test Item Value Reference Range Interpretation Comments appearance, urine (test code = 5767-9) Clear Clear [facility] Healthurine pzrzl5784-71-05 08:48:00* Test Item Value Reference Range Interpretation Comments urine color (test code = 5778-6) Yellow Yellow [facility] HospitalpH, urine, uysmuwljvschdhsz4173-78-35 08:48:00* Test Item Value Reference Range Interpretation Comments pH, urine, semiquantitative (test code = 5803-2) >=9.0 5.0-7 .5 A [facility] Hospitalspecific gravity, body jodms5134-50-25 08:48:00* Test Item Value Reference Range Interpretation Comments specific gravity, body fluid (test code = 2964-5) 1.016 1.00 5-1.030 [facility] Hospitalalanine aminotransferase (SGPT), iruse0843-01-90 08:48:00 * Test Item Value Reference Range Interpretation Comments alanine aminotransferase (SGPT), serum (test code = 1742-6) 36 1/L 0-44 [facility] Hospitalaspartate aminotransferase (SGOT), fvhru0821-85-17 08:48:00* Test Item Value Reference Range Interpretation Comments aspartate aminotransferase (SGOT), serum (test code = 1920-8) 53 1/ L 0-40 H [facility] Hospitalalkaline phosphatase, wbkop2335-09-33 08:48:00* Test Item Value Reference Range Interpretation Comments alkaline phosphatase, serum (test code = 1783-0) 481 1/L 39-11 7 H [facility] Hospitalbilirubin, serum, swxbr6465-77-41 08:48:00* Test Item Value Reference Range Interpretation Comments bilirubin, serum, total (test code = 1975-2) 0.4 mg/dL 0.0-1.2 [facility], [id number] 08:48:00* Test Item Value Reference Range Interpretation Comments albumin/globulin ratio, serum (test code = 1759-0) 0.8 1.2 -2.2 L [facility] Healthglobulin, xjryv1235-42-17 08:48:00* Test Item Value Reference Range Interpretation Comments globulin, serum (test code = 2336-6) 4.4 1.5-4.5 [facility] Healthalbumin, zqkfg1842-30-99 08:48:00* Test Item Value Reference Range Interpretation Comments albumin, serum (test code = 1751-7) 3.4 g/dL 3.8-4.9 L [facility]protein, total, vmurb3289-79-19 08:48:00* Test Item Value Reference Range Interpretation Comments protein, total, serum (test code = 2885-2) 7.8 g/dL 6.0-8.5 [facility]calcium, iuyug2066-11-39 08:48:00* Test Item Value Reference Range Interpretation Comments calcium, serum (test code = 2000-8) 8.5 mg/dL 8.7-10.2 L [facility] Hospitalcarbon dioxide, venous jwysm2617-54-66 08:48:00* Test Item Value Reference Range Interpretation Comments carbon dioxide, venous blood (test code = 2027-1) 27 mmol/L 20-2 9 [facility] Hospitalchloride, ssgsy8485-44-79 08:48:00* Test Item Value Reference Range Interpretation Comments chloride, serum (test code = 2075-0) 97 mmol/L 96-106 [facility] Healthpotassium, gsmtz4851-45-80 08:48:00* Test Item Value Reference Range Interpretation Comments potassium, serum (test code = 2823-3) 4.0 mmol/L 3.5-5.2 [facility] Healthsodium, wjwuh4455-13-36 08:48:00* Test Item Value Reference Range Interpretation Comments sodium, serum (test code = 2951-2) 139 mmol/L 134-144 [facility] Hospitalurea nitrogen/creatinine ratio, xcdlw7168-17-99 08:48:00 * Test Item Value Reference Range Interpretation Comments urea nitrogen/creatinine ratio, serum (test code = 3097-3) 5 9-20 [facility] HealtheGFR if Vkbmpijc7531-81-47 08:48:00* Test Item Value Reference Range Interpretation Comments eGFR if (test code = 76898-8) 13 mL/min/((173/100) .m2) >59 L [facility] HospitalEstimated Glomerular Filtration Rate (calc)2020-08-14 08:48:00* Test Item Value Reference Range Interpretation Comments Estimated Glomerular Filtration Rate (calc) (test code = 22243-8) 11 mL/min/((173/100).m2) >59 L [facility] Hospitalcreatinine, yvipz4405-48-49 08:48:00* Test Item Value Reference Range Interpretation Comments creatinine, serum (test code = 2160-0) 5.41 mg/dL 0.76-1.27 H [facility] Hospitalurea nitrogen, pkoxd1103-26-95 08:48:00* Test Item Value Reference Range Interpretation Comments urea nitrogen, blood (test code = 3094-0) 28 mg/dL 6-24 H [facility] Hospitalblood glucose, rdencl7727-86-88 08:48:00* Test Item Value Reference Range Interpretation Comments blood glucose, random (test code = 2339-0) 47 mg/dL 65-99 L [facility] Hospitalimmature granulocytes, percentage of total cells, blood 2020-08-14 08:48:00* Test Item Value Reference Range Interpretation Comments immature granulocytes, percentage of total cells, bloo d (test code = 36569-4) 0 % [facility] Hospitalbasophil count, lnageasm0951-61-60 08:48:00* Test Item Value Reference Range Interpretation Comments basophil count, absolute (test code = 27616-3) 0.1 x10E3/uL 0.0-0.2 [facility] HealthEosinophil Absolute Tsdlo4721-31-30 08:48:00* Test Item Value Reference Range Interpretation Comments Eosinophil Absolute Count (test code = 63555-9) 0.5 X10E3/UL 0.0-0. 4 [facility] Healthmonocyte count, blood, cgiakoyjn6209-30-86 08:48:00* Test Item Value Reference Range Interpretation Comments monocyte count, blood, automated (test code = 742-7) 1.3 X10E3/UL 0 .1-0.9 H [facility] Hospitallymphocyte count, blood, lpcxzbcez5978-89-72 08:48:00* Test Item Value Reference Range Interpretation Comments lymphocyte count, blood, automated (test code = 731-0) 1.1 X10E3/UL 0.7-3.1 [facility] HospitalAbsolute Svtlbadwmrb5071-47-48 08:48:00* Test Item Value Reference Range Interpretation Comments Absolute Neutrophils (test code = 64799-8) 11.4 X10E3/UL 1.4-7.0 [facility] Healthbasophils as percent of blood xuincojwlb5589-06-26 08:48:00* Test Item Value Reference Range Interpretation Comments basophils as percent of blood leukocytes (test code = 707-0) 1 % [facility] Hospitaleosinophils as percent of blood cfomgmrito0963-65-28 08:48:00* Test Item Value Reference Range Interpretation Comments eosinophils as percent of blood leukocytes (test code = 713-8) 3 % [facility] Healthmonocytes as percent of blood yqiglidork6102-94-90 08:48:00* Test Item Value Reference Range Interpretation Comments monocytes as percent of blood leukocytes (test code = 5905-5) 9 % [facility] Hospitallymphocytes as percent of blood psisqdpkwf0155-78-87 08:48:00* Test Item Value Reference Range Interpretation Comments lymphocytes as percent of blood leukocytes (test code = 736-9) 8 % [facility] Hospitalneutrophils as percent of blood rmlgbkmefu7957-70-18 08:48:00* Test Item Value Reference Range Interpretation Comments neutrophils as percent of blood leukocytes (test code = 770-8) 79 % [facility] Hospitalplatelet cjqpd6385-50-24 08:48:00* Test Item Value Reference Range Interpretation Comments platelet count (test code = 777-3) 284 X10E3/UL 150-450 [facility] Hospitalred blood cell distribution zmmrv3177-16-03 08:48:00* Test Item Value Reference Range Interpretation Comments red blood cell distribution width (test code = 788-0) 13.1 % 11.6-15.4 [facility] corpuscular hemoglobin concentration, XQF0192-10-72 08:48:00* Test Item Value Reference Range Interpretation Comments mean corpuscular hemoglobin concentration, RBC (test code = 786-4) 33.2 G/DL 31.5-35.7 [facility] corpuscular hemoglobin, ZOT7685-39-12 08:48:00* Test Item Value Reference Range Interpretation Comments mean corpuscular hemoglobin, RBC (test code = 785-6) 31.2 pg 2 6.6-33.0 [facility] corpuscular volume, FTY0313-16-66 08:48:00* Test Item Value Reference Range Interpretation Comments mean corpuscular volume, RBC (test code = 787-2) 94 fL 79-97 [facility] Hospitalhematocrit, upzdu3780-86-15 08:48:00* Test Item Value Reference Range Interpretation Comments hematocrit, blood (test code = 4544-3) 28.0 % 37.5-51.0 L [facility] Hospitalhemoglobin, kxtnb6631-22-11 08:48:00* Test Item Value Reference Range Interpretation Comments hemoglobin, blood (test code = 718-7) 9.3 g/dL 13.0-17.7 L [facility] Hospitalerythrocyte (RBC) egfui2903-01-96 08:48:00* Test Item Value Reference Range Interpretation Comments erythrocyte (RBC) count (test code = 789-8) 2.98 X10E6/UL 4.14-5.80 L [facility] Hospitalleukocyte count, bzhdb7262-03-42 08:48:00* Test Item Value Reference Range Interpretation Comments leukocyte count, blood (test code = 6690-2) 14.3 X10E3/UL 3.4-10.8 [facility] blood glucose measurement by glucometer (mass/volume)2020-08-10 15:07:00* Test Item Value Reference Range Interpretation Comments Bedside Glucose (test code = 94645-3) 170 70-120 Meter ID: [id number] Hermann Katy Hospitaltool gastrointestinal hemoglobin tczysclaf9951-96-47 05:50:00* Test Item Value Reference Range Interpretation Comments Stool Occult Blood (test code = 2335-8) POSITIVE NEGATIVE [facility] leukocytes automated count (number/volume)2020-08-09 05:35:00* Test Item Value Reference Range Interpretation Comments White Blood Count (test code = 6690-2) 12.06 4.8-10.8 [facility] erythrocytes automated count (number/volume)2020-08-09 05:35:00* Test Item Value Reference Range Interpretation Comments Red Blood Count (test code = 789-8) 3.05 4.3-5.7 [facility] CenterBlood hemoglobin measurement (moles/volume)2020-08-09 05:35:00* Test Item Value Reference Range Interpretation Comments Hemoglobin (test code = 27465-7) 9.2 14.0-18.0 [facility] CenterAutomated blood hematocrit (volume fraction)2020-08-09 05:35:00* Test Item Value Reference Range Interpretation Comments Hematocrit (test code = 4544-3) 28.6 38.2-49.6 [facility] CenterAutomated erythrocyte mean corpuscular iaiffy7212-12-57 05:35:00* Test Item Value Reference Range Interpretation Comments Mean Corpuscular Volume (test code = 787-2) 93.8 81-99 [facility] CenterAutomated erythrocyte mean corpuscular hemoglobin (mass per erythrocyte)2020-08-09 05:35:00* Test Item Value Reference Range Interpretation Comments Mean Corpuscular Hemoglobin (test code = 785-6) 30.2 28-32 [facility] CenterAutomated erythrocyte mean corpuscular hemoglobin concentration measurement (mass/volume)2020-08-09 05:35:00* Test Item Value Reference Range Interpretation Comments Mean Corpuscular Hemoglobin Concent (test code = 786-4) 32.2 31-35 [facility] CenterRDW XnfJe-Fkv5583-85-02 05:35:00* Test Item Value Reference Range Interpretation Comments Red Cell Distribution Width (test code = 20169-7) 13.6 11.7 -14.4 [facility] CenterAutomated blood platelet count (count/volume)2020-08-09 05:35:00* Test Item Value Reference Range Interpretation Comments Platelet Count (test code = 777-3) 248 140-360 [facility] CenterAutomated blood segmented neutrophil count as percentage of total uknbduxsqs3354-49-47 05:35:00* Test Item Value Reference Range Interpretation Comments Neutrophils (%) (Auto) (test code = 20732-5) 80.3 38.7-80.0 [facility] CenterAutomated blood lymphocyte count as percentage ot total rgednxmpni6352-10-33 05:35:00* Test Item Value Reference Range Interpretation Comments Lymphocytes (%) (Auto) (test code = 736-9) 6.9 18.0-39.1 [facility] CenterAutomated blood monocyte count as percentage of total ecwfarbfwk5219-10-86 05:35:00* Test Item Value Reference Range Interpretation Comments Monocytes (%) (Auto) (test code = 5905-5) 8.9 4.4-11.3 [facility] CenterAutomated blood eosinophil count as percentage of total qubtazybqw7449-22-77 05:35:00* Test Item Value Reference Range Interpretation Comments Eosinophils (%) (Auto) (test code = 713-8) 3.2 0.0-6.0 [facility] CenterAutomated blood basophil count as percentage of total pwvivtovqj6589-47-58 05:35:00* Test Item Value Reference Range Interpretation Comments Basophils (%) (Auto) (test code = 706-2) 0.5 0.0-1.0 [facility] CenterFluoroscopic procedure less than one hour mkkimlfd9476-17-30 05:35:00* Test Item Value Reference Range Interpretation Comments IM GRANULOCYTES % (test code = IM GRANULOCYTES %) 0.2 0.0- 1.0 [facility] CenterAutomated blood neutrophil count 2020-08-09 05:35:00* Test Item Value Reference Range Interpretation Comments Neutrophils # (Auto) (test code = 751-8) 9.7 2.1-6.9 [facility] CenterBlood lymphocytes count (number/volume) 2020-08-09 05:35:00* Test Item Value Reference Range Interpretation Comments Lymphocytes # (Auto) (test code = 19106-1) 0.8 1.0-3.2 [facility] monocytes automated count (number/volume)2020-08-09 05:35:00* Test Item Value Reference Range Interpretation Comments Monocytes # (Auto) (test code = 742-7) 1.1 0.2-0.8 [facility] CenterAutomated blood eosinophil count 2020-08-09 05:35:00* Test Item Value Reference Range Interpretation Comments Eosinophils # (Auto) (test code = 711-2) 0.4 0.0-0.4 [facility] CenterAutomated blood basophil count (count/volume)2020-08-09 05:35:00* Test Item Value Reference Range Interpretation Comments Basophils # (Auto) (test code = 704-7) 0.1 0.0-0.1 [facility] CenterFluoroscopic procedure less than one hour emcnzszu7453-75-74 05:35:00* Test Item Value Reference Range Interpretation Comments Absolute Immature Granulocyte (auto (manuel t code = Absolute Immature Granulocyte (auto) 0.03 0-0.1 [facility] Hospitalerum or plasma sodium measurement (moles/volume)2020-08-09 05:35:00* Test Item Value Reference Range Interpretation Comments Sodium Level (test code = 2951-2) 136 136-145 [facility] Hospitalerum or plasma potassium measurement (moles/volume)2020-08-09 05:35:00* Test Item Value Reference Range Interpretation Comments Potassium Level (test code = 2823-3) 3.6 3.5-5.1 [facility] Hospitalerum or plasma chloride measurement (moles/volume)2020-08-09 05:35:00* Test Item Value Reference Range Interpretation Comments Chloride Level (test code = 2075-0) 100 98-107 [facility] Hospitalerum or plasma carbon dioxide, total measurement (moles/volume)2020-08-09 05:35:00* Test Item Value Reference Range Interpretation Comments Carbon Dioxide Level (test code = 2028-9) 25 22-29 [facility] Hospitalerum or plasma anion fli7324-20-76 05:35:00* Test Item Value Reference Range Interpretation Comments Anion Gap (test code = 77398-1) 14.6 8-16 [facility] Hospitalerum or plasma urea nitrogen measurement (mass/volume)2020-08-09 05:35:00* Test Item Value Reference Range Interpretation Comments Blood Urea Nitrogen (test code = 3094-0) 33 7-26 [facility] Hospitalerum or plasma creatinine measurement (mass/volume)2020-08-09 05:35:00* Test Item Value Reference Range Interpretation Comments Creatinine (test code = 2160-0) 6.12 0.72-1.25 [facility] Hospitalerum or plasma urea nitrogen/creatinine mass cjgxj7835-85-65 05:35:00* Test Item Value Reference Range Interpretation Comments BUN/Creatinine Ratio (test code = 3097-3) 5 6-25 [facility] CenterEstimated glomerular filtration rate (GFR) tbsmpirvjvzan3609-06-16 05:35:00* Test Item Value Reference Range Interpretation Comments Estimat Glomerular Filtration Rate (test code = 935738482) 10 >60 Ranges were taken from the National Kidney Disease Education Program and the [facility] literature.Reference ranges:60 or greater: Eylqce99-39 ( for 3 consecutive months): Chronic kidney disease 15 or less: Kidney failureKnapp Medical CenterGlucose gdwiqpfeigs9927-77-14 05:35:00* Test Item Value Reference Range Interpretation Comments Glucose Level (test code = YKH3019) 72 74-118 [facility] Hospitalerum or plasma calcium measurement (mass/volume)2020-08-09 05:35:00* Test Item Value Reference Range Interpretation Comments Calcium Level (test code = 94399-9) 8.0 8.4-10.2 [facility] CenterPhosphorus jwinhmnftjx8304-70-17 05:35:00 * Test Item Value Reference Range Interpretation Comments Phosphorus Level (test code = UEP4687) 5.3 2.3-4.7 [facility] Hospitalerum or plasma magnesium measurement (mass/volume)2020-08-09 05:35:00* Test Item Value Reference Range Interpretation Comments Magnesium Level (test code = 71812-0) 1.8 1.3-2.1 [facility] CenterMRI BRAIN [id number] 12:37:00 [facility] [address] [address] Patient Name: PRISCILLA ZAMUDIO MR #: [id number] : 1965 Age/Sex: 55/M Req #: [id number] Adm Physician: JESIKA BANDA MD Ordered by: MEG RIVAS MD Report #: [id number] [facility]: [facility]/SURG[facility] Room/Bed: [facility] Procedure: [id number] MRI/MRI BRAIN WO Exam Date: Exam Time: REPORT STATUS: Signed Examination: MRI BRAIN WO CONTRAST History: stroke Comparison studies: Head CT performed August 07, 2020 Technique: Sagittal T2; axial DWI, FLAIR, GRE or SWI, T1, Coronal FLAIR. I ntravenous contrast: None Findings: Scalp: No abnormal signal. No mas ses. Bone marrow: Normal in signal intensity. Brain volume: Adequate for age. No volume loss. Ventricles: Normal in size and configuration. No hydro cephalus. Extra-axial spaces: No abnormalities. Parenchyma: Ther e are patchy and confluent areas of T2/FLAIR hyperintensity in the periventric ular and subcortical white matter, nonspecific. Chronic infarct of the right anderson radiata and mila. No masses, hemorrhage, or acute vascular insults. Suprasellar and sellar region: No abnormalities. Craniocervical junction: No abnormalities. The foramen magnum is patent. No Chiari malformations. Vesse ls: Normal flow-voids in the arteries and sinuses. Additional findings:None . IMPRESSION: No acute intracranial abnormalities. Microvascular ischemic change/Fazekas grade 1. Chronic lacunar infarcts, as above. S igned by: Dr. Lizet Escobedo M.D. on 08/08/2020 12:41 PM Dictated By: Milton MONTOYA MD 40 Transcribed By: KEN on 08/08/201240 COPY TO: MEG MAURO MD IR CPVDYOU8191-09-16 12:12:[address] [address] Patient Name: PRISCILLA ZAMUDIO MR #: [id number] : 1965 Age/Sex: 55/M Req #: [id number] Adm Physician: JESIKA BANDA MD Ordered by: ANI POSADA, ANIYA POSADA Report #: [id number] Location: MED/SURG2 Room/Bed: [facility] Procedure: [id number] DX/IR CONSULT Exam Date: Exam Time: REPORT STATUS: Signed Conversion of a nontunneled to tunneled dialysis catheter, right. History: Renal failure. Modality: Fluoroscopy. Sedation: Versed 1 mg and f entanyl 50 mcg was given intravenously for conscious sedation. Vital signs we re monitored throughout the procedure by a nurse, and remained stable. Physici an intra-service time was 30 minutes. Cider Maker: Daysi Martin MD. Registered Account Administrator: None. Approach: Right internal jugular vein Estimated blood loss: < 5 cc. Specimen: None. Fluoroscopy Time: 0.6 min. Dose (Ka,r): 5.9 mGy. Technique: Informed written consent was obtained. Discussion of risks, benefits, and alternatives were made with the patient. The patient expressed understanding and agreed to proceed. All elements maximal sterile barrier technique was utilized for this procedure, including utilization of sterile scrub solution for skin prep, a large sterile sheet to cover the areas of the patient that were not prepped, and hand hygiene, mask, head covering, and sterile gown for performing radiologist and scrub technologist. The skin was anesthetized with 2% lidocaine. A 0.35 inch diameter guidewire was inserted through the existing nontunneled dialysis catheter into the IVC. A subcutaneous tunnel was created in the right anterior chest wall by blunt dissection. A 19 cm 14.5 [place] Mahurkar catheter was brought through the tunnel. The existing nontunneled hemodialysis catheter was then removed over the guidewire. A peel-away sheath was placed in the right IJ vein and the catheter was advanced through the sheath, with its distal tip terminating in the right atrium. The peel-away sheath was removed. The ports were flushed and aspirated easily following placement. The catheter was sutured to the skin with 2-0 silk to secure its placement. The small jugular incision site was closed using resorbable suture. Vital signs were monitored throughout the procedure by a nurse, and remained stable. The patient tolerated the procedure well and left the department in the same condition. The patient was already on Rocephin antibiotic. Results: Spot radiograph of the chest demonstrates the new dialysis catheter to lie in the expected position with its tip overlying the superior right atrium. Impression: Successful, uncomplicated conversion of a nontunneled right internal jugular to a tunneled dialysis catheter. Signed by: William Martin MD on 08/08/2020 12:13 PM Dictated By: WILLIAM MARTIN MD 1213 Transcribed By: KEN on 08/08/20 1213 COPY TO: ANIYA LAW MOD SEDATE INITIAL >5 [id number] 12:12:[address] [address] Patient Name: PRISCILLA ZAMUDIO MR #: [id number] : 1965 Age/Sex: 55/M Req #: [id number] Adm Physician: JESIKA BANDA MD Ordered by: WILLIAM MARTIN MD Report #: [id number] Location: MED/SURG2 Room/Bed: [facility] Procedure: [id number] DX/MOD SEDATE IN ITIAL >5 YRS Exam Date: 08/08/20 Exam Time: 1113 REPORT STATUS: Signed Conversion of a nontunneled to tunneled dialysis catheter, right. History: Renal failure. Modality: Fluoroscopy. Sedation: Versed 1 mg and fentanyl 50 mcg was given intravenously for conscious sedation. Vital signs were monitored throughout the procedure by a nurse, and remained stable. Physician intra-service time was 30 minutes. Cider Maker: William Martin MD. Registered Account Administrator: None. Approach: Right internal jugular vein Estimated blood loss: < 5 cc. Specimen: None. Fluoroscopy Time: 0.6 min. Dose (Ka,r): 5.9 mGy. Technique: Informed written consent was obtained. Discussion of risks, benefits, and alternatives were made with the patient. The patient expressed understanding and agreed to proceed. All elements maximal sterile barrier technique was utilized for this procedure, including utilization of sterile scrub solution for skin prep, a large sterile sheet to cover the areas of the patient that were not prepped, and hand hygiene, mask, head covering, and sterile gown for performing radiologist and scrub technologist. The skin was anesthetized with 2% lidocaine. A 0.35 inch diameter guidewire was inserted through the existing nontunneled dialysis catheter into the IVC. A subcutaneous tunnel was created in the right anterior chest wall by blunt dissection. A 19 cm 14.5 [place] Mahurkar catheter was brought through the tunnel. The existing nontunneled hemodialysis catheter was then removed over the guidewire. A peel- away sheath was placed in the right IJ vein and the catheter was advanced through the sheath, with its distal tip terminating in the right atrium. The peel-away sheath was removed. The ports were flushed and aspirated easily fol lowing placement. The catheter was sutured to the skin with 2-0 silk to secur e its placement. The small jugular incision site was closed using resorbable suture. Vital signs were monitored throughout the procedure by a nurse, and re mained stable. The patient tolerated the procedure well and left the [facility] in the same condition. The patient was already on Rocephin antibiotic. Results: Spot radiograph of the chest demonstrates the new dialysis catheter to lie in the expected position with its tip overlying the superior right atr ium. Impress ion: Successful, uncomplicated conversion of a nontunneled right internal jugular to a tunneled dialysis catheter. Signed by: William Martin MD on 08/08/2020 12:13 PM Dictated By: WILLIAM MARTIN MD 1213 COPY TO: [facility] [id number] 12:12:[address] [address] Patient Name: PRISCILLA ZAMUDIO MR #: [id number] : 1965 Age/Sex: 55/M Req #: [id number] Adm Physician: JESIKA BANDA MD Ordered by: ANI POSADA, ANIYA POSADA Report #: [id number] Location: MED/SURG2 Room/Bed: [facility] Procedure: [id number] LONNIE/ONEAL SHEPPARD CE NT HONORIO PLMT OR REM Exam Date: 08/08/20 Exam Time: 11 00 REPORT STATUS: Signed Convers ion of a nontunneled to tunneled dialysis catheter, right. History: Renal failure. Modality: Fluoroscopy. Sedation: Versed 1 mg and fentanyl 50 mcg was given intravenously for conscious sedation. Vital signs were monitored throughout the procedure by a nurse, and remained stable. Physician intra-service time was 30 minutes. Cider Maker: William Martin MD. Registered Account Administrator: None. Approach: Right internal jugular vein Estimated blood loss: < 5 cc. Specimen: None. Fluoroscopy Time: 0.6 min. Dose (Ka,r): 5.9 mGy. Technique: Informed written consent was obtained. Discussion of risks, benefits, and alternatives were made with the patient. The patient expressed understanding and agreed to proceed. All elements maximal sterile barrier technique was utilized for this procedure, including utilization of sterile scrub solution for skin prep, a large sterile sheet to cover the areas of the patient that were not prepped, and hand hygiene, mask, head covering, and sterile gown for performing radiologist and scrub technologist. The skin was anesthetized with 2% lidocaine. A 0.35 inch diameter guidewire was inserted through the existing nontunneled dialysis catheter into the IVC. A subcutaneous tunnel was created in the right anterior chest wall by blunt dissection. A 19 cm 14.5 [place] Mahurkar catheter was brought through the tunnel. The existing nontunneled hemodialysis catheter was then removed over the guidewire. A peel- away sheath was placed in the right IJ vein and the catheter was advanced through the sheath, with its distal tip terminating in the right atrium. The peel-away sheath was removed. The ports were flushed and aspirated easily fol lowing placement. The catheter was sutured to the skin with 2-0 silk to secur e its placement. The small jugular incision site was closed using resorbable suture. Vital signs were monitored throughout the procedure by a nurse, and re mained stable. The patient tolerated the procedure well and left the departme nt in the same condition. The patient was already on Rocephin antibiotic. Results: Spot radiograph of the chest demonstrates the new dialysis catheter to lie in the expected position with its tip overlying the superior right atr ium. Impress ion: Successful, uncomplicated conversion of a nontunneled right internal jugular to a tunneled dialysis catheter. Signed by: William Martin MD on 08/08/2020 12:13 PM Dictated By: WILLIAM MARTIN MD 12 COPY TO: ANA LAW TUNNELLED CVC INSERT W/O [id number] 12:12:00 [place] [address] Patient Name: PRISCILLA ZAMUDIO MR #: [id number] : 1965 Age/Sex: 55/M Req #: [id number] Adm Physician: JESIKA BANDA MD Ordered by: ANI POSADA, ANIYA POSADA Report #: [id number] Location: MED/SURG2 Room/Bed: [facility] Procedure: [id number] IR/TUNNELLED CV C INSERT W/O PORT Exam Date: Exam Time: REPORT STATUS: Signed Conversion of a nont unneled to tunneled dialysis catheter, right. History: Renal failure. Modality: Fluoroscopy. Sedation: Versed 1 mg and fentanyl 50 mcg was given intravenously for conscious sedati on. Vital signs were monitored throughout the procedure by a nurse, and remwinifred smith stable. Physician intra-service time was 30 minutes. P michael Appliquer: William Martin MD. Registered Account Administrator: None. Approach: Right internal jugular vein Estimated blood loss: < 5 cc. Specimen: None. Fluoroscopy Time: 0.6 min. Dose (Ka,r): 5.9 mGy. Technique: Informed written consent was obtained. Discussion of risks, benefits, and alternatives were made with the patient. The patient expressed understanding and agreed to proceed. All elements maximal sterile barrier technique was utilized for this procedure, including utilization of sterile scrub solution for skin prep, a large sterile sheet to cover the areas of the patient that were not prepped, and hand hygiene, mask, head covering, and sterile gown for performing radiologist and scrub technologist. The skin was anesthetized with 2% lidocaine. A 0.35 inch diameter guidewire was inserted through the existing nontunneled dialysis catheter into the IVC. A subcutaneous tunnel was created in the right anterior chest wall by blunt dissection. A 19 cm 14.5 Jamaican Mahurkar catheter was brought through the tunnel. The existing nontunneled hemodialysis catheter was then removed over the guidewire. A peel- away sheath was placed in the right IJ vein and the catheter was advanced through the sheath, with its distal tip terminating in the right atrium. The peel-away sheath was removed. The ports were flushed and aspirated easily fol lowing placement. The catheter was sutured to the skin with 2-0 silk to secur e its placement. The small jugular incision site was closed using resorbable suture. Vital signs were monitored throughout the procedure by a nurse, and re mained stable. The patient tolerated the procedure well and left the [facility] in the same condition. The patient was already on Rocephin antibiotic. Results: Spot radiograph of the chest demonstrates the new dialysis catheter to lie in the expected position with its tip overlying the superior right atr ium. Impress ion: Successful, uncomplicated conversion of a nontunneled right internal jugular to a tunneled dialysis catheter. Signed by: William Martin MD on 08/08/2020 12:13 PM Dictated By: WILLIAM MARTIN MD 1213 COPY TO: ANA LAW Serum nuclear antibody titer by uialijakqmnnvaoyuw1387-76-57 08:34:00* Test Item Value Reference Range Interpretation Comments Anti-Nuclear Antibody Screen (test code = 5048-4) Negative . Negative <1:80 Borderline 1:80 Positive > 1:80Performed at: [facility] [id number] Director: Daniel Huynh MD, Phone: [phone] Medical CenterQualitative serum rapid plasma reagin (RPR) [id number] 08:34:00* Test Item Value Reference Range Interpretation Comments Rapid Plasma Reagin (test code = 62224-1) Non Reactive Non Reactive Performed at: [facility] [id number] Director: Daniel Huynh MD, Phone: [phone] Hermann Katy Hospitalerum or plasma amylase measurement (enzymatic activity/volume)2020-08-08 05:35:00* Test Item Value Reference Range Interpretation Comments Amylase Level (test code = 1798-8) 48 25-125 [facility] Hospitalerum or plasma lipase measurement (enzymatic activity/volume)2020-08-08 05:35:00* Test Item Value Reference Range Interpretation Comments Lipase (test code = 3040-3) 17 8-78 [facility] CenterBlood cobalamin (vitamin B12) measurement (mass/volume)2020-08-08 05:35:00* Test Item Value Reference Range Interpretation Comments Vitamin B12 Level (test code = 96509-3) 999 213-816 [facility] Hospitalerum or plasma folate measurement (mass/volume)2020-08-08 05:35:00* Test Item Value Reference Range Interpretation Comments Folate (test code = 2284-8) 4.6 >3.0 A serum folate concentration of less than 3.1 ng/mL isconsidered to represent cl inical deficiency.Performed at: [facility] LabCo[address] [id number] Director: Daniel Huynh MD, Phone: [phone] Medical CenterCT BRAIN [id number] 11:41:00 [place] [address] Patient Name: PRISCILLA ZAMUDIO MR #: [id number] : 1965 Age/Sex: 55/M Req #: [id number] Adm Physician: JESIKA BANDA MD Ordered by: NORRIS FELIX FEATHER STITCHER Report #: [id number] Location: [facility]/SURG2 Room/Bed: 210 Procedure: [id number] CT/CT BRAIN WO Exam Date: 08/07/20 Exam Time: 1040 REPORT STATUS: Signed CT BRAIN WO HISTORY: C hanges in speech, tremors COMPARISON: None. TECHNIQUE: Noncontrast axial scans were obtained from skull base to the vertex. Coronal and sagittal reconstructions obtained from the axial data. One or more of the following dose reduction techniques were used: Automated exposure control, adjustment of the mA and/or kV according to patient size, and/or utilization of iterative r econstruction technique. Beam hardening artifacts obscure some details. D ISCUSSION: Scalp/Skull: Diffuse scalp vascular calcifications are present. Brain sulci: Appropriate for patient's age. Ventricles: Normal in size and c onfiguration. No hydrocephalus. Extra-axial spaces: No masses or fluid collec tions. Carotid siphon and vertebral artery calcifications are present. P arenchyma: Mild periventricular white matter hypodensities are likely chronic microvascular ischemic changes. Associated small focal hypodensities in the right anderson radiata, posterior limbs of the bilateral internal capsules (left greater than right), and central mila may be age indeterminate lacunar infar cts. Otherwise, no mass, hemorrhage, or large vascular territory acute infarct . Dural sinuses: No abnormal densities. Sellar/Suprasellar region: Intac t. Skull base: Intact. Incidental findings: Bilateral ocular lens replacemen t. IMPRESSION: 1. Age indeterminate small lacunar infarcts in the right anderson radiata, posterior limbs of the bilateral internal capsules (left great er than right), and central mila. 2. No other acute intracranial abnormalit ies. 3. Mild supratentorial chronic microvascular ischemic change. Jazlyn d by: Dr. Urbano Caputo M.D. on 08/07/2020 11:46 AM Dictated By: URBANO CAPUTO MD 1146 Tr anscribed By: KEN on 08/07/20 1146 COPY TO: NORRIS FELIX NP Serum hepatitis B virus surface antibody assay by radioimmunoassay (units/volume )2020-08-06 16:15:00* Test Item Value Reference Range Interpretation Comments Hepatitis B Surface Antibody, Quant (test code = 5194-6) <3.1 Immunity>9.9 Status of Immunity Anti-HBs Level Inconsistent with Immunity 0.0 - 9.9Consistent with Immunity >9.9[facility] Centererum or plasma hepatitis B virus core antibody detection by vlcifzufamu0438-68-06 16:15:00* Test Item Value Reference Range Interpretation Comments Hepatitis B Core Total Antibody (test code = 55803-6) Negative Negative [facility] Centererum or plasma hepatitis B virus surface antigen detection by xdvaflkrowr8293-64-88 16:15:00* Test Item Value Reference Range Interpretation Comments Hepatitis B Surface Antigen (test code = 5196-1) Negative Negat shamar Performed at: [facility] [id number] Director: Daniel Huynh MD, Phone: [phone] Hermann Katy Hospitalerum or plasma hepatitis B virus core IgM antibody detection by rruwnbwcdnb8830-38-32 16:15:00* Test Item Value Reference Range Interpretation Comments Hepatitis B Core IgM Antibody (test code = 35503-6) Negative Ne gative Performed at: [facility] [id number] Director: Daniel Huynh MD, Phone: [phone] Hermann Katy Hospitalerum or plasma total bilirubin measurement (mass/volume)2020-08-06 05:04:00* Test Item Value Reference Range Interpretation Comments Total Bilirubin (test code = 1975-2) 0.4 0.2-1.2 [facility] CenterFluoroscopic procedure less than one hour [id number] 05:04:00* Test Item Value Reference Range Interpretation Comments Aspartate Amino Transf (AST/SGOT) (test code = Aspartate Amino Transf (AST/SGOT)) 26 5-34 [facility] Hospitalerum or plasma alanine aminotransferase measurement (enzymatic activity/volume)2020-08-06 05:04:00* Test Item Value Reference Range Interpretation Comments Alanine Aminotransferase (ALT/SGPT) (test code = 1742-6) 37 0-55 [facility] Hospitalerum or plasma protein measurement (mass/volume)2020-08-06 05:04:00* Test Item Value Reference Range Interpretation Comments Total Protein (test code = 2885-2) 7.2 6.5-8.1 [facility] Hospitalerum or plasma albumin measurement (mass/volume)2020-08-06 05:04:00* Test Item Value Reference Range Interpretation Comments Albumin (test code = 1751-7) 3.0 3.5-5.0 [facility] CenterPlasma globulin measurement (mass/volume) 2020-08-06 05:04:00* Test Item Value Reference Range Interpretation Comments Globulin (test code = 31164-9) 4.2 2.3-3.5 [facility] Hospitalerum or plasma albumin/globulin mass [id number] 05:04:00* Test Item Value Reference Range Interpretation Comments Albumin/Globulin Ratio (test code = 1759-0) 0.7 0.8-2.0 [facility] Hospitalerum or plasma alkaline phosphatase measurement (enzymatic activity/volume)2020-08-06 05:04:00* Test Item Value Reference Range Interpretation Comments Alkaline Phosphatase (test code = 6768-6) 340 40-150 [facility] Hospitalerum or plasma creatine kinase measurement (enzymatic activity/volume)2020-08-06 05:04:00* Test Item Value Reference Range Interpretation Comments Creatine Kinase (test code = 2157-6) 248 30-200 [facility] Hospitalerum or plasma creatine kinase MB measurement (mass/volume)2020-08-05 16:20:00* Test Item Value Reference Range Interpretation Comments Creatine Kinase MB (test code = 50801-0) 6.00 0-5.0 [facility] CenterTroponin I measurement by highly sensitive enzyme tfpyrigrcbi1255-98-68 16:20:00* Test Item Value Reference Range Interpretation Comments Troponin I (test code = 71094-0) 0.135 0-0.300 [facility] CenterNON-TUNNELLED CVC CATH [id number] 11:11:00 [facility] [address] [place] [address] Patient Name: PRISCILLA ZAMUDIO MR #: [id number] : 1965 Age/Sex: 55/M Req #: [id number] Adm Physician: JESIKA BANDA MD Ordered by: ANI POSADA, ANIYA POSADA Report #: [id number] Location: [facility] Room/Bed: [facility] Procedure: IR/NON-TUNNELLE D CVC CATH PLACMNT Exam Date: 08/05/20 Exam Time: REPORT STATUS: Signed PROCEDU RE: Non-tunneled central venous catheter placement Procedural Personnel A ttending physician(s): Kierra Perera MD Fellow physician(s): None Resident phy sician(s): None Advanced practice provider(s): None Pre-procedure diagnos is: Acute kidney injury Post-procedure diagnosis: Same Indication: Performan ce of hemodialysis Additional clinical history: None Complications: No im mediate complications. IMPRESSION: Insertion of right-sided non-tunnel ed triple-lumen temporary dialysis catheter, with tip in the expected location of the cavoatrial junction. Plan: The catheter may be used immediate ly. PROCE DURE SUMMARY: - Venous access with ultrasound guidance - Non-tunneled centra l venous catheter insertion with fluoroscopic guidance - Additional procedure( s): None PROCEDURE DETAILS: Pre-procedure Consent: Informed consent for the procedure including risks, benefits and alternatives was obtained and time-out was performed prior to the procedure. Preparation (MIPS): The site wa s prepared and draped using all elements of maximal sterile barrier technique including sterile gloves, sterile gown, cap, mask, large sterile sheet, steril e ultrasound probe cover, hand hygiene and cutaneous antisepsis with 2% chlorh exidine. Medical reason for site preparation exception (MIPS): Not applicable Anesthesia/sedation Level of anesthesia/sedation: No sedation Access Local anesthesia was administered. The vessel was sonographically evaluated and determined to be patent. Real time ultrasound was used to visualize needle entry into the vessel and a permanent image was stored. Vein accessed: Inte rnal jugular vein Access technique: Micropuncture set with 21 gauge needle Catheter placement The access site was dilated and the catheter was placed i nto the vein over a wire under fluoroscopic guidance. The catheter tip locat ion was fluoroscopically verified and a permanent image was stored.. A sterile dressing was applied. Catheter placed: Bard Trialysis Catheter size (Fren ch): 13 Catheter length (cm): 15 Catheter flush: Heparin (1000 units/mL) C atheter securement technique: Non-absorbable suture Contrast Contrast age nt: None Contrast volume (mL): NA Radiation Dose Fluoroscopy time (vladislav manuel): 0.0 Reference air kerma (mGy): 0.7 Additional Details Addit ional description of procedure: None Equipment details: None Specimens remov ed: None Estimated blood loss (mL): Less than 10 Standardized report: [id number] A_NonTunneledCatheter_v3 Attestation Signer name: Kierra Perera MD I atte st that I was present for the entire procedure. I reviewed the stored images a nd agree with the report as written. Signed by: Kierra Perera MD on 08/05/2020 11:13 AM Dictated By: KIERRA PERERA MD 12 Transcribed By: KEN on 08/05/201112 COPY TO: ANIYA LAW [facility] PLMT OR [id number] 11:11:00 [place] [address] Patient Name: PRISCILLA ZAMUDIO MR #: [id number] : 1965 Age/Sex: 55/M Req #: [id number] Adm Physician: JESIKA BANDA MD Ordered by: ANIYA LAW MD, MD Report #: [id number] Location: [facility] Room/Bed: [facility] Procedure: IR/ONEAL SHEPPARD CE NT HONORIO PLMT OR REM Exam Date: 08/05/20 Exam Time: 10 00 REPORT STATUS: Signed PROCEDU RE: Non-tunneled central venous catheter placement Procedural Personnel A ttending physician(s): Kierra Perera MD Fellow physician(s): None Resident owen sician(s): None Advanced practice provider(s): None Pre-procedure diagnos is: Acute kidney injury Post-procedure diagnosis: Same Indication: Performan ce of hemodialysis Additional clinical history: None Complications: No im mediate complications. IMPRESSION: Insertion of right-sided non-tunnel ed triple-lumen temporary dialysis catheter, with tip in the expected location of the cavoatrial junction. Plan: The catheter may be used immediate ly. PROCE DURE SUMMARY: - Venous access with ultrasound guidance - Non-tunneled centra l venous catheter insertion with fluoroscopic guidance - Additional procedure( s): None PROCEDURE DETAILS: Pre-procedure Consent: Informed consent for the procedure including risks, benefits and alternatives was obtained and time-out was performed prior to the procedure. Preparation (MIPS): The site wa s prepared and draped using all elements of maximal sterile barrier technique including sterile gloves, sterile gown, cap, mask, large sterile sheet, steril e ultrasound probe cover, hand hygiene and cutaneous antisepsis with 2% chlorh exidine. Medical reason for site preparation exception (MIPS): Not applicable Anesthesia/sedation Level of anesthesia/sedation: No sedation Access Local anesthesia was administered. The vessel was sonographically evaluated and determined to be patent. Real time ultrasound was used to visualize needle entry into the vessel and a permanent image was stored. Vein accessed: Inte rnal jugular vein Access technique: Micropuncture set with 21 gauge needle Catheter placement The access site was dilated and the catheter was placed i nto the vein over a wire under fluoroscopic guidance. The catheter tip locat ion was fluoroscopically verified and a permanent image was stored.. A sterile dressing was applied. Catheter placed: Bard Trialysis Catheter size (Fren ch): 13 Catheter length (cm): 15 Catheter flush: Heparin (1000 units/mL) C atheter securement technique: Non-absorbable suture Contrast Contrast age nt: None Contrast volume (mL): NA Radiation Dose Fluoroscopy time (vladislav manuel): 0.0 Reference air kerma (mGy): 0.7 Additional Details Addit ional description of procedure: None Equipment details: None Specimens remov ed: None Estimated blood loss (mL): Less than 10 Standardized report: [id number] A_NonTunneledCatheter_v3 Attestation Signer name: Kierra Perera MD I atte st that I was present for the entire procedure. I reviewed the stored images a nd agree with the report as written. Signed by: Kierra Perera MD on 08/05/2020 11:13 AM Dictated By: KIERRA PERERA MD 1113 Transcribed By: KEN on 08/05/20 1113 COPY TO: ANIYA LAW GUIDANCE FOR VASCULAR [id number] 11:11:00 [place] [address] Patient Name: PRISCILLA ZAMUDIO MR #: [id number] : 1965 Age/Sex: 55/M Req #: [id number] Adm Physician: JESIKA BANDA MD Ordered by: KATY PUENTES MD Report #: [id number] Location: MED/SURG2 Room/Bed: [facility] Procedure: [id number] / VALARIE DANCE FOR VASCULAR ACCES Exam Date: 08/05/20 Exam Ti me: 0938 REPORT STATUS: Signed P ROCEDURE: Non-tunneled central venous catheter placement Procedural Personn el Attending physician(s): Kierra Perera MD Fellow physician(s): None Reside nt physician(s): None Advanced practice provider(s): None Pre-procedure d iagnosis: Acute kidney injury Post-procedure diagnosis: Same Indication: Per formance of hemodialysis Additional clinical history: None Complications: No immediate complications. IMPRESSION: Insertion of right-sided non- tunneled triple-lumen temporary dialysis catheter, with tip in the expected lo cation of the cavoatrial junction. Plan: The catheter may be used imm ediately. PROCEDURE SUMMARY: - Venous access with ultrasound guidance - Non-tunneled central venous catheter insertion with fluoroscopic guidance - Additional proc edure(s): None PROCEDURE DETAILS: Pre-procedure Consent: Informed co nsent for the procedure including risks, benefits and alternatives was obtaine d and time-out was performed prior to the procedure. Preparation (MIPS): The s ite was prepared and draped using all elements of maximal sterile barrier tech nique including sterile gloves, sterile gown, cap, mask, large sterile sheet, sterile ultrasound probe cover, hand hygiene and cutaneous antisepsis with 2% chlorhexidine. Medical reason for site preparation exception (MIPS): Not appl icable Anesthesia/sedation Level of anesthesia/sedation: No sedation Access Local anesthesia was administered. The vessel was sonographically eval uated and determined to be patent. Real time ultrasound was used to visualize needle entry into the vessel and a permanent image was stored. Vein accessed : Internal jugular vein Access technique: Micropuncture set with 21 gauge need le Catheter placement The access site was dilated and the catheter was pl aced into the vein over a wire under fluoroscopic guidance. The catheter tip location was fluoroscopically verified and a permanent image was stored.. A s terile dressing was applied. Catheter placed: Bard Trialysis Catheter size (Jamaican): 13 Catheter length (cm): 15 Catheter flush: Heparin (1000 units/m L) Catheter securement technique: Non-absorbable suture Contrast Contra st agent: None Contrast volume (mL): NA Radiation Dose Fluoroscopy time (minutes): 0.0 Reference air kerma (mGy): 0.7 Additional Details Additional description of procedure: None Equipment details: None Specimens removed: None Estimated blood loss (mL): Less than 10 Standardized report: [email or web address]_v3 Attestation Signer name: Kierra Perera MD I attest that I was present for the entire procedure. I reviewed the stored im ages and agree with the report as written. Signed by: Kierra Perera MD on 07/10 11:13 AM Dictated By: KIERRA PERERA MD 111 Transcribed By: KEN on 08/05/20 111 COPY TO: KATY PUENTES MD IR [id number] 11:11:00 [place] [address] Patient Name: PRISCILLA ZAMUDIO MR #: [id number] : 1965 Age/Sex: 55/M Req #: [id number] [facility] Physician: JESIKA BANDA MD Ordered by: KATY PUENTES MD Report #: [id number] Location: [place] [address] Room/Bed: [facility] Procedure: DX/LONNIE HICKS Exam Date: Exam Time: REPORT STATUS: Signed PROCEDURE: Non-tunneled central v enous catheter placement Procedural Personnel Attending physician(s): Nilson Perera MD Fellow physician(s): None Resident physician(s): None Advanced practice provider(s): None Pre-procedure diagnosis: Acute kidney injury Post-procedure diagnosis: Same Indication: Performance of hemodialysis Addit ional clinical history: None Complications: No immediate complications. IMPRESSION: Insertion of right-sided non-tunneled triple-lumen temporary dialysis catheter, with tip in the expected location of the cavoatrial junctio n. Plan: The catheter may be used immediately. PROCEDURE SUMMARY: - Venous a ccess with ultrasound guidance - Non-tunneled central venous catheter insertio n with fluoroscopic guidance - Additional procedure(s): None PROCEDURE DE TAILS: Pre-procedure Consent: Informed consent for the procedure includin g risks, benefits and alternatives was obtained and time-out was performed breanne or to the procedure. Preparation (MIPS): The site was prepared and draped usin g all elements of maximal sterile barrier technique including sterile gloves, sterile gown, cap, mask, large sterile sheet, sterile ultrasound probe cover, hand hygiene and cutaneous antisepsis with 2% chlorhexidine. Medical reason for site preparation exception (MIPS): Not applicable Anesthesia/sedation Level of anesthesia/sedation: No sedation Access Local anesthesia was a dministered. The vessel was sonographically evaluated and determined to be pat ent. Real time ultrasound was used to visualize needle entry into the vessel a nd a permanent image was stored. Vein accessed: Internal jugular vein Access technique: Micropuncture set with 21 gauge needle Catheter placement The access site was dilated and the catheter was placed into the vein over a wire under fluoroscopic guidance. The catheter tip location was fluoroscopically verified and a permanent image was stored.. A sterile dressing was applied. Catheter placed: [employer] Trialysis Catheter size (Jamaican): 13 Catheter length (cm): 15 Catheter flush: Heparin (1000 units/mL) Catheter securement techniq ue: Non-absorbable suture Contrast Contrast agent: None Contrast volume (mL): NA Radiation Dose Fluoroscopy time (minutes): 0.0 Reference air kerma (mGy): 0.7 Additional Details Additional description of proce dure: None Equipment details: None Specimens removed: None Estimated blood loss (mL): Less than 10 Standardized report: [id number]_NonTunneledCatheter_v3 Attestation Signer name: Kierra Perera MD I attest that I was present for the entire procedure. I reviewed the stored images and agree with the report a s written. Signed by: Kierra Perera MD on 08/05/2020 11:13 AM Dictated By: KIERRA PERERA MD 1113 Tra nscribed By: KEN on 08/05/20 1113 COPY TO: KATY PUENTES MD RENAL RETROPERITONEAL [id number] 10:19:00 [place] [address] Patient Name: PRISCILLA ZAMUDIO MR #: [id number] : 1965 Age/Sex: 55/M Req #: [id number] Adm Physician: JESIKA BANDA MD Ordered by: KATY PUENTES MD Report #: [id number] Location: MED/SURG2 Room/Bed: 210 Procedure: [id number] US/US CHANCE AL RETROPERITONEAL COMP Exam Date: 08/05/20 Exam Noe e: 0822 REPORT STATUS: Signed EX AM: Renal Ultrasound INDICATION: renal failure [id number] Y COMPARISON: CT abdomen and pelvis of 10/08/2019 , renal ultrasound of TECHNIQUE: Transverse and longitudinal images of the kidneys and bladd er were obtained. FINDINGS: Right Kidney: Length: 11.7 cm Appearance: Normal echogenicity. Collecting system: No hydronephrosis St ones: None Cyst/Mass: None Left Kidney: Length: 12.1 cm Appearance: Normal echogenicity. Collecting system: No hydronephrosis Stones: None C yst/Mass: None Bladder: Beltrán catheter in the decompressed bladder. IMPRESSION: No hydronephrosis or renal calculi. Signed by: Kierra Perera MD on 08/05/2020 10:20 AM Dictated By: KIERRA PERERA MD 1020 Transcribed By: KEN on 08/05/20 1020 COPY TO: KATY PUENTES MD Fluoroscopic procedure less than one hour ylqfrkeq6865-22-18 05:12:00* Test Item Value Reference Range Interpretation Comments Hemoglobin A1c Percent (test code = Hemoglobin A1c Percent) 4.9 4.0-7.0 [facility] iron measurement (mass/volume)2020-08-05 05:12:00* Test Item Value Reference Range Interpretation Comments Iron Level (test code = 2498-4) 33 65-175 [facility] plasma iron binding capacity measurement (mass/volume)2020-08-05 05:12:00* Test Item Value Reference Range Interpretation Comments Total Iron Binding Capacity (test code = 2500-7) 244 261-4 78 [facility]er[facility] or plasma iron saturation measurement (mass fraction)2020-08-05 05:12:00* Test Item Value Reference Range Interpretation Comments Percent Iron Saturation (test code = 2502-3) 14 15-50 [facility] or plasma transferrin measurement (mass/volume)2020-08-05 05:12:00* Test Item Value Reference Range Interpretation Comments Transferrin (test code = 3034-6) 174 174-364 [facility] or plasma ferritin measurement (mass/volume)2020-08-05 05:12:00* Test Item Value Reference Range Interpretation Comments Ferritin (test code = 2276-4) 149.99 21.81-274.66 [facility]er[facility] or plasma thyrotropin measurement by detection limit <= 0.005 miu/l (units/volume)2020-08-05 05:12:00* Test Item Value Reference Range Interpretation Comments Thyroid Stimulating Hormone (TSH) (test code = 29727-8) 5.713 0.350-4.940 [facility] than one hour szxasndb4392-31-73 21:56:00* Test Item Value Reference Range Interpretation Comments Coronavirus (PCR) (test code = Coronavirus (PCR)) NOT DETECTED NOTD ETECTED SARS-CoV-2 PCRHologic Aptima SARS-CoV-2 assay is a nucleic amplification test in tended for the qualitative detection of RNA from SARS-CoV-2 from nasopharyngeal (FEATHER STITCHER) specimens. It is used under Emergency Use Authorization (EUA) by FDA.A posi tive result is indicative of the presence of SARS-CoV-2 RNA. Clinical correlatio n with patient history and other diagnostic information is necessary to determin e patient infection status.A negative (Not Detected) result does not preclude SA RS-CoV-2 infection. Clinical Correlation with patient history and other diagnost ic information should be used in patient management decisions.Invalid: Unable to generate a valid result on this specimen. Please submit a new specimen for repr at testing oc clinically indicated.Tesing performed by:[facility] Laboratory Services[address] [place] [address] [id number], Katy boss MD, PhDCHI [facility] CenterCHES SINGLE (PORTABLE) 2020-08-04 20:56:00 [facility] [address] [address] Patient Name: PRISCILLA ZAMUDIO MR #: [id number] : 1965 Age/Sex: 55/M Req #: [id number] Adm Physician: Ordered by: KATY PUENTES MD Report #: [id number] Location: ER Room/Bed: Procedure: [id number] DX/CHEST SINGLE (PORTABLE) Exam Date: 08/04/20 Exam Time: 203 0 REPORT STATUS: Signed EXAMINAT ION: CHEST SINGLE (PORTABLE) INDICATION: renal failure, sob 20200804 Y COMPARISON: None FINDINGS: AP view TUBES and LINES: None. LUNGS: Limited by body habitus and low lung vo lumes. Central lesser congestion on mild images show edema. PLEURA: No significant pleural effusion or pneumothorax. HEART AND MEDIASTINUM: The c ardiac silhouette is enlarged. BONES AND SOFT TISSUES: No acute osseou s lesion. Soft tissues are unremarkable. UPPER ABDOMEN: No free air unde r the diaphragm. IMPRESSION: Limited as above. Enlarged cardiac si lhouette, central vascular congestion, and mild interstitial edema. Si gned by: Dr. Yesenia Padilla MD on 08/04/2020 8:57 PM Dictated By: YESENIA LARA MD 56 Transcrib ed By: KEN on 08/04/202056 COPY TO: KATY PUENTES MD Fluoroscopic procedure less than one hour bmpwcrvz3820-44-26 19:33:00* Test Item Value Reference Range Interpretation Comments Differential Total Cells Counted (test code = Javon davidl Total Cells Counted) 100 [facility] neutrophils/100 leukocytes 2020-08-04 19:33:00* Test Item Value Reference Range Interpretation Comments Neutrophils % (Manual) (test code = 83212-9) 82 40-74 [facility] blood lymphocytes/100 leukocytes 2020-08-04 19:33:00* Test Item Value Reference Range Interpretation Comments Lymphocytes % (Manual) (test code = 737-7) 5 19-48 [facility] blood monocytes/100 leukocytes 2020-08-04 19:33:00* Test Item Value Reference Range Interpretation Comments Monocytes % (Manual) (test code = 744-3) 12 3.4-9.0 [facility] blood eosinophil count as percentage of total mkrmfhlgzo9282-30-69 19:33:00* Test Item Value Reference Range Interpretation Comments Eosinophils % (Manual) (test code = 714-6) 1 0-7 [facility] platelets count by estimate (number/volume)2020-08-04 19:33:00* Test Item Value Reference Range Interpretation Comments Platelet Estimate (test code = 48899-3) ADEQUATE [facility] CenterPlatelet aplfsgchtv8464-24-27 19:33:00* Test Item Value Reference Range Interpretation Comments Platelet Morphology Comment (test code = 92014-4) NORMAL [facility] CenterProthrombin time (PT) in platelet poor plasma by coagulation eeeli5587-99-23 19:33:00* Test Item Value Reference Range Interpretation Comments Prothrombin Time (test code = 5902-2) 15.3 11.9-14.5 [facility] CenterINR in Platelet poor plasma by Coagulation dtazy7640-96-45 19:33:00* Test Item Value Reference Range Interpretation Comments Prothromb Time International Ratio (test code = 6301-6) 1.15 Oral Anticoagulant Therapy INR Values:1. Low Intensity Therapy 1.5 - 2.02 . Moderate Intensity Therapy 2.0 - 3.03. High Intensity Therapy(1) 2.5 - 3. 54. High Intensity Therapy(2) 3.0 - 4.05. Panic Value INR > 5.0 [facility] CenterActivated partial thromboplastin time (aPTT) in platelet poor plasma by coagulation xawrr6163-23-31 19:33:00* Test Item Value Reference Range Interpretation Comments Activated Partial Thromboplast Time (test code = 91837-6) 41.7 23.8-35.5 [facility] CenterUrine color iudhshkzondyt3990-43-38 19:33:00* Test Item Value Reference Range Interpretation Comments Urine Color (test code = 5778-6) YELLOW YELLOW [facility] CenterUrine tilerco2959-99-29 19:33:00* Test Item Value Reference Range Interpretation Comments Urine Clarity (test code = 09566-1) HAZY CLEAR [facility] Hospitalpecific gravity of Urine by Test strip 2020-08-04 19:33:00* Test Item Value Reference Range Interpretation Comments Urine Specific [place] (test code = 5811-5) 1.025 1.010-1.02 5 [facility] CenterUrine pH measurement by automated test xsebr3809-60-30 19:33:00* Test Item Value Reference Range Interpretation Comments Urine pH (test code = 14944-5) 5 5-7 [facility] CenterUrine leukocyte esterase detection by gaicioud4005-26-98 19:33:00* Test Item Value Reference Range Interpretation Comments Urine Leukocyte Esterase (test code = 5799-2) NEGATIVE NEGATIVE [facility] CenterUrine nitrite pfebzrrut8323-92-56 19:33:00* Test Item Value Reference Range Interpretation Comments Urine Nitrite (test code = 11684-7) NEGATIVE NEGATIVE [facility] CenterUrine protein measurement by test strip (mass/volume)2020-08-04 19:33:00* Test Item Value Reference Range Interpretation Comments Urine Protein (test code = 5804-0) >=300 NEGATIVE [facility] CenterUrine glucose nijlmqowd4182-60-00 19:33:00* Test Item Value Reference Range Interpretation Comments Urine Glucose (UA) (test code = 2349-9) 1+ NEGATIVE [facility] CenterUrine ketones detection by automated test fgtfd4752-66-70 19:33:00* Test Item Value Reference Range Interpretation Comments Urine Ketones (test code = 69348-2) NEGATIVE NEGATIVE [facility] CenterUrine urobilinogen measurement by test strip (mass/volume)2020-08-04 19:33:00* Test Item Value Reference Range Interpretation Comments Urine Urobilinogen (test code = 87909-8) 0.2 0.2-1 [facility] CenterUrine total bilirubin measurement (mass/volume)2020-08-04 19:33:00* Test Item Value Reference Range Interpretation Comments Urine Bilirubin (test code = 1978-6) NEGATIVE NEGATIVE [facility] CenterUrine erythrocytes olthxtxos6403-88-79 19:33:00* Test Item Value Reference Range Interpretation Comments Urine Blood (test code = 92869-7) LARGE NEGATIVE [facility] CenterAutomated urine sediment leukocyte count by microscopy (number/high power field)2020-08-04 19:33:00* Test Item Value Reference Range Interpretation Comments Urine WBC (test code = 5821-4) 6-10 0-5 [facility] CenterErythrocytes detection in urine sediment by light sgiltiomtw8086-31-76 19:33:00* Test Item Value Reference Range Interpretation Comments Urine RBC (test code = 39392-7) 21-50 0-5 [facility] CenterBacteria detection in urine sediment by light etrisqvhfk9011-59-16 19:33:00* Test Item Value Reference Range Interpretation Comments Urine Bacteria (test code = 94227-9) MODERATE NONE [facility] CenterEpithelial cells detection in urine sediment by light ioxbmaqqfz1980-71-51 19:33:00* Test Item Value Reference Range Interpretation Comments Urine Epithelial Cells (test code = 46425-7) FEW NONE [facility] CenterAmorphous sediment detection in urine sediment by light bvnhphafjb2330-01-96 19:33:00* Test Item Value Reference Range Interpretation Comments Urine Amorphous Sediment (test code = 8246-1) FEW FEW [facility] CenterAutomated fine granular casts count in urine sediment by microscopy low power field (number/area)2020-08-04 19:33:00* Test Item Value Reference Range Interpretation Comments Urine Fine Granular Casts (test code = 57770-2) 1-5 >0 [facility] CenterBNP Exb-lVjj5652-02-27 19:33:00* Test Item Value Reference Range Interpretation Comments B-Type Natriuretic Peptide (test code = 98817-2) 1680.4 0-100 [facility] Centermagnesium, mxsbu5978-24-37 08:50:00* Test Item Value Reference Range Interpretation Comments magnesium, serum (test code = 2601-3) 2.2 mg/dL 1.6-2.3 [facility] Healthphosphate, oowmn7114-93-24 08:50:00* Test Item Value Reference Range Interpretation Comments phosphate, serum (test code = 2777-1) 6.6 mg/dL 2.8-4.1 H [facility] Healthcalcium, qneyz7444-21-19 08:50:00* Test Item Value Reference Range Interpretation Comments calcium, serum (test code = 2000-8) 8.6 mg/dL 8.7-10.2 L [facility] Hospitalcarbon dioxide, venous hfoxl6962-17-42 08:50:00* Test Item Value Reference Range Interpretation Comments carbon dioxide, venous blood (test code = 2027-1) 18 mmol/L 20-2 9 L [facility] Healthchloride, feswd5226-95-52 08:50:00* Test Item Value Reference Range Interpretation Comments chloride, serum (test code = 2075-0) 108 mmol/L 96-106 [facility] Healthpotassium, vctpk1147-24-63 08:50:00* Test Item Value Reference Range Interpretation Comments potassium, serum (test code = 2823-3) 5.7 mmol/L 3.5-5.2 [facility] Hospitalsodium, jlcen4450-48-81 08:50:00* Test Item Value Reference Range Interpretation Comments sodium, serum (test code = 2951-2) 140 mmol/L 134-144 [facility] Hospitalurea nitrogen/creatinine ratio, cxapa8615-50-62 08:50:00 * Test Item Value Reference Range Interpretation Comments urea nitrogen/creatinine ratio, serum (test code = 3097-3) 10 9-20 [facility] HealtheGFR if Zzsonooh3891-34-42 08:50:00* Test Item Value Reference Range Interpretation Comments eGFR if (test code = 48886-7) 11 mL/min/((173/100) .m2) >59 [facility] HospitalEstimated Glomerular Filtration Rate (calc)2020-03-26 08:50:00* Test Item Value Reference Range Interpretation Comments Estimated Glomerular Filtration Rate (calc) (test code = 20258-5) 9 mL/min/((173/100).m2) >59 [facility] Hospitalcreatinine, joppl3215-91-73 08:50:00* Test Item Value Reference Range Interpretation Comments creatinine, serum (test code = 2160-0) 6.17 mg/dL 0.76-1.27 H [facility] Hospitalurea nitrogen, csvbj1738-07-90 08:50:00* Test Item Value Reference Range Interpretation Comments urea nitrogen, blood (test code = 3094-0) 62 mg/dL 6-24 [facility] Hospitalblood glucose, jwtghw9242-59-27 08:50:00* Test Item Value Reference Range Interpretation Comments blood glucose, random (test code = 2339-0) 80 mg/dL 65-99 [facility] Hospitalplatelet owkfz7683-42-09 08:50:00* Test Item Value Reference Range Interpretation Comments platelet count (test code = 777-3) 279 X10E3/UL 150-450 [facility] Hospitalred blood cell distribution ygfyz7768-28-99 08:50:00* Test Item Value Reference Range Interpretation Comments red blood cell distribution width (test code = 788-0) 13.0 % 11.6-15.4 [facility] corpuscular hemoglobin concentration, UTD5067-67-62 08:50:00* Test Item Value Reference Range Interpretation Comments mean corpuscular hemoglobin concentration, RBC (test code = 786-4) 33.9 G/DL 31.5-35.7 [facility] corpuscular hemoglobin, ISD4075-98-72 08:50:00* Test Item Value Reference Range Interpretation Comments mean corpuscular hemoglobin, RBC (test code = 785-6) 32.3 pg 2 6.6-33.0 [facility] corpuscular volume, EBA9989-22-67 08:50:00* Test Item Value Reference Range Interpretation Comments mean corpuscular volume, RBC (test code = 787-2) 96 fL 79-97 [facility] Hospitalhematocrit, qpqii9198-20-26 08:50:00* Test Item Value Reference Range Interpretation Comments hematocrit, blood (test code = 4544-3) 31.9 % 37.5-51.0 L [facility] Hospitalhemoglobin, uhdpx5667-93-75 08:50:00* Test Item Value Reference Range Interpretation Comments hemoglobin, blood (test code = 718-7) 10.8 g/dL 13.0-17.7 L [facility] Hospitalerythrocyte (RBC) xxumt1998-66-65 08:50:00* Test Item Value Reference Range Interpretation Comments erythrocyte (RBC) count (test code = 789-8) 3.34 X10E6/UL 4.14-5.80 L [facility] Hospitalleukocyte count, qttcs8271-96-91 08:50:00* Test Item Value Reference Range Interpretation Comments leukocyte count, blood (test code = 6690-2) 8.8 X10E3/UL 3.4-10.8 [facility] HospitalUS Orniz7610-58-97 12:33:54Hm Interface, Radiology Results 03/08/2020 12:36 PM CDTEXAMINATION: US RENALCLINICAL HISTORY: R79.89 Other specified abnormal findings of blood chemistry, N18.9 Chronic kidney disease unspecified, ELEVATED CREATININE CKDCOMPARISON: None available at this time.IMPRESSION:1.Normal renal size and echogenicity.2.No cortical atrophy or hydronephrosis.3.Nonspecific mild diffuse thickening of the urinary bladder wall may be due to to detrussor muscle hypertrophy from chronic outlet obstruction or inflammatory or infectious cystitis. FINDINGS:RIGHT KIDNEY:*Position and Orientation: Normal.*Renal Cortical Echogenicity: Normal .*Size: 11.7 x 5.4 x 5.0 cm.*Cyst: None.*Mass: None.*Calculus: None.*Hydronephr osis: None.LEFT KIDNEY:*Position and Orientation: Normal.*Renal Cortical Echogen icity: Normal.*Size: 11.2 x 6.6 x 5.4 cm.*Cyst: None.*Mass: None.*Calculus: Non e.*Hydronephrosis: None.BLADDER: Mild diffuse thickening of the urinary bladder wall.OTHER: None.Thank you for allowing us to participate in the care of your pa padmini.[facility]-[id number] Methodistparathormone, afgvl1411-19-47 13:14:00* Test Item Value Reference Range Interpretation Comments parathormone, serum (test code = 2731-8) 148 pg/mL 15-65 H [facility] Healthmagnesium, fjmvx5204-48-56 13:14:00* Test Item Value Reference Range Interpretation Comments magnesium, serum (test code = 2601-3) 2.1 mg/dL 1.6-2.3 [facility] Healthphosphate, nqbps3890-17-68 13:14:00* Test Item Value Reference Range Interpretation Comments phosphate, serum (test code = 2777-1) 5.2 mg/dL 2.8-4.1 H [facility] Hospitalmicroalbumin/total urine qdhnrb5278-94-05 13:14:00* Test Item Value Reference Range Interpretation Comments microalbumin/total urine volume (test code = 40648-6) 4205.6 mg/L [facility] Hospitalvitamin D 25-hydroxy, gconn9416-28-33 13:14:00* Test Item Value Reference Range Interpretation Comments vitamin D 25-hydroxy, serum (test code = 45160-6) 16.9 ng/mL 30.0 -100.0 L [facility] Hospitalcreatinine, random, vnzqo5250-96-59 13:14:00* Test Item Value Reference Range Interpretation Comments creatinine, random, urine (test code = 2161-8) 89.9 mg/dL [facility] Hospitalbacteria, urine fbatxrodje9483-91-49 13:14:00* Test Item Value Reference Range Interpretation Comments bacteria, urine microscopy (test code = 5769-5) Few None s een/Few [facility] Hospitalmucus on bmzctpucvp3185-97-36 13:14:00* Test Item Value Reference Range Interpretation Comments mucus on urinalysis (test code = 8247-9) Present [facility] HospitalCrystal Type, Jszqp5930-34-43 13:14:00* Test Item Value Reference Range Interpretation Comments Crystal Type, Urine (test code = 833310) Amorphous Sediment N/A [facility] Hospitalurine crystals, lpywnjcevjc0985-76-01 13:14:00* Test Item Value Reference Range Interpretation Comments urine crystals, microscopic (test code = 2543) Present N/A A [facility] Hospitalepithelial cells, yhque4762-69-85 13:14:00* Test Item Value Reference Range Interpretation Comments epithelial cells, urine (test code = 5787-7) None seen 0-10 [facility] HospitalRBC, Fepcf0269-49-94 13:14:00* Test Item Value Reference Range Interpretation Comments RBC, Urine (test code = 07508-3) 0-2 /hpf 0-2 [facility] HospitalWBC urine on zenltncqsk4401-32-07 13:14:00* Test Item Value Reference Range Interpretation Comments WBC urine on microscopy (test code = 1016) 0-5 /hpf 0-5 [facility] Hospitalurinalysis, microscopic yzzciipcjfd5690-68-01 13:14:00* Test Item Value Reference Range Interpretation Comments urinalysis, microscopic examination (test code = 05649-7) See below : [facility] Hospitalnitrate, rpxbw2818-35-49 13:14:00* Test Item Value Reference Range Interpretation Comments nitrate, urine (test code = 45193-9) Negative Negative [facility] Hospitalurobilinogen, urine, semiquantitative (dipstick) 2020-02-05 13:14:00* Test Item Value Reference Range Interpretation Comments urobilinogen, urine, semiquantitative (dipstick) (test code = 5818-0) 0.2 0.2-1.0 [facility] Hospitalbilirubin, xrzgb9676-63-25 13:14:00* Test Item Value Reference Range Interpretation Comments bilirubin, urine (test code = 5770-3) Negative Negative [facility] Hospitalketones, urine, by test lzbnc0894-80-96 13:14:00* Test Item Value Reference Range Interpretation Comments ketones, urine, by test strip (test code = 5797-6) Negative Neg ative [facility] Hospitalglucose, urine, scdnevphapobwzbp9356-73-69 13:14:00* Test Item Value Reference Range Interpretation Comments glucose, urine, semiquantitative (test code = 5792-7) 2+ Negative A [facility] Hospitalprotein, urine, semiquantitative (dipstick)2020-02-05 13:14:00* Test Item Value Reference Range Interpretation Comments protein, urine, semiquantitative (dipstick) (test code = 1753-3) 87 9.0 [facility] Hospitalleukocyte esterase, urine, by ujapdeee5631-76-01 13:14:00 * Test Item Value Reference Range Interpretation Comments leukocyte esterase, urine, by dipstick (test code = 5799-2) Negativ e Negative [facility] Hospitalappearance, clfbp4442-71-04 13:14:00* Test Item Value Reference Range Interpretation Comments appearance, urine (test code = 5767-9) Clear Clear [facility] Hospitalurine wsyht7274-20-93 13:14:00* Test Item Value Reference Range Interpretation Comments urine color (test code = 5778-6) Yellow Yellow [facility] HospitalpH, urine, vtrphpfhfbrjzrhz8165-54-06 13:14:00* Test Item Value Reference Range Interpretation Comments pH, urine, semiquantitative (test code = 5803-2) 5.5 5.0-7 .5 [facility] Hospitalspecific gravity, body nyvez1747-42-19 13:14:00* Test Item Value Reference Range Interpretation Comments specific gravity, body fluid (test code = 2964-5) 1.020 1.00 5-1.030 [facility] Hospitalalanine aminotransferase (SGPT), jtjuu0166-60-94 13:14:00 * Test Item Value Reference Range Interpretation Comments alanine aminotransferase (SGPT), serum (test code = 1742-6) 38 1/L 0-44 [facility] Hospitalaspartate aminotransferase (SGOT), klbvl6048-78-77 13:14:00* Test Item Value Reference Range Interpretation Comments aspartate aminotransferase (SGOT), serum (test code = 1920-8) 37 1/ L 0-40 [facility] Hospitalalkaline phosphatase, gemoh8886-95-65 13:14:00* Test Item Value Reference Range Interpretation Comments alkaline phosphatase, serum (test code = 1783-0) 249 1/L 39-11 7 H [facility] Hospitalbilirubin, serum, oqwpy1532-44-30 13:14:00* Test Item Value Reference Range Interpretation Comments bilirubin, serum, total (test code = 1975-2) <0.2 mg/dL 0.0-1.2 [facility]albumin/globulin ratio, yseyn3305-77-37 13:14:00* Test Item Value Reference Range Interpretation Comments albumin/globulin ratio, serum (test code = 1759-0) 0.8 1.2 -2.2 L [facility] Healthglobulin, bsyho3216-14-54 13:14:00* Test Item Value Reference Range Interpretation Comments globulin, serum (test code = 2336-6) 3.6 1.5-4.5 [facility] Healthalbumin, sgygj8395-31-99 13:14:00* Test Item Value Reference Range Interpretation Comments albumin, serum (test code = 1751-7) 3.0 g/dL 3.8-4.9 L [facility] Healthprotein, total, itnwn4022-74-87 13:14:00* Test Item Value Reference Range Interpretation Comments protein, total, serum (test code = 2885-2) 6.6 g/dL 6.0-8.5 [facility] Hospitalcalcium, hpews6248-19-14 13:14:00* Test Item Value Reference Range Interpretation Comments calcium, serum (test code = 2000-8) 8.4 mg/dL 8.7-10.2 L [facility] Hospitalcarbon dioxide, venous aadot1063-22-16 13:14:00* Test Item Value Reference Range Interpretation Comments carbon dioxide, venous blood (test code = 2027-1) 16 mmol/L 20-2 9 L [facility] Hospitalchloride, xbtru6843-99-58 13:14:00* Test Item Value Reference Range Interpretation Comments chloride, serum (test code = 2075-0) 112 mmol/L 96-106 [facility] Healthpotassium, nvlsa6735-14-30 13:14:00* Test Item Value Reference Range Interpretation Comments potassium, serum (test code = 2823-3) 5.5 mmol/L 3.5-5.2 H [facility] Hospitalsodium, wiqcd0853-31-81 13:14:00* Test Item Value Reference Range Interpretation Comments sodium, serum (test code = 2951-2) 139 mmol/L 134-144 [facility] Hospitalurea nitrogen/creatinine ratio, mwdlw8365-18-30 13:14:00 * Test Item Value Reference Range Interpretation Comments urea nitrogen/creatinine ratio, serum (test code = 3097-3) 11 9-20 [facility] HospitaleGFR if Bzgyjrld3380-28-33 13:14:00* Test Item Value Reference Range Interpretation Comments eGFR if (test code = 05422-4) 15 mL/min/((173/100) .m2) >59 L [facility] HospitalEstimated Glomerular Filtration Rate (calc)2020-02-05 13:14:00* Test Item Value Reference Range Interpretation Comments Estimated Glomerular Filtration Rate (calc) (test code = 08827-9) 13 mL/min/((173/100).m2) >59 L [facility] Hospitalcreatinine, bvteb8584-07-89 13:14:00* Test Item Value Reference Range Interpretation Comments creatinine, serum (test code = 2160-0) 4.74 mg/dL 0.76-1.27 H [facility] Hospitalurea nitrogen, jqlvn8019-00-50 13:14:00* Test Item Value Reference Range Interpretation Comments urea nitrogen, blood (test code = 3094-0) 53 mg/dL 6-24 H [facility] Hospitalblood glucose, yeogzy3706-01-85 13:14:00* Test Item Value Reference Range Interpretation Comments blood glucose, random (test code = 2339-0) 156 mg/dL 65-99 H [facility] Hospitalimmature granulocytes, percentage of total cells, blood 2020-02-05 13:14:00* Test Item Value Reference Range Interpretation Comments immature granulocytes, percentage of total cells, bloo d (test code = 19889-9) 0 % [facility] Hospitalbasophil count, nvivcegp8255-83-46 13:14:00* Test Item Value Reference Range Interpretation Comments basophil count, absolute (test code = 68068-2) 0.0 x10E3/uL 0.0-0.2 [facility] HospitalEosinophil Absolute Hwpon5469-00-48 13:14:00* Test Item Value Reference Range Interpretation Comments Eosinophil Absolute Count (test code = 38900-6) 0.3 X10E3/UL 0.0-0. 4 [facility] Hospitalmonocyte count, blood, ntongrwlj7409-00-51 13:14:00* Test Item Value Reference Range Interpretation Comments monocyte count, blood, automated (test code = 742-7) 0.4 X10E3/UL 0 .1-0.9 [facility] Hospitallymphocyte count, blood, wimqqfcwm5223-09-07 13:14:00* Test Item Value Reference Range Interpretation Comments lymphocyte count, blood, automated (test code = 731-0) 1.5 X10E3/UL 0.7-3.1 [facility] HospitalAbsolute Shcqyeflkjz6084-87-87 13:14:00* Test Item Value Reference Range Interpretation Comments Absolute Neutrophils (test code = 28756-3) 5.7 X10E3/UL 1.4-7.0 [facility] Hospitalbasophils as percent of blood qlthzgyauw5639-50-04 13:14:00* Test Item Value Reference Range Interpretation Comments basophils as percent of blood leukocytes (test code = 707-0) 0 % [facility] Hospitaleosinophils as percent of blood aqqvmgjzth3782-47-32 13:14:00* Test Item Value Reference Range Interpretation Comments eosinophils as percent of blood leukocytes (test code = 713-8) 4 % [facility] Hospitalmonocytes as percent of blood hfximgllih0158-14-03 13:14:00* Test Item Value Reference Range Interpretation Comments monocytes as percent of blood leukocytes (test code = 5905-5) 5 % [facility] Hospitallymphocytes as percent of blood lafihxrgef1579-27-18 13:14:00* Test Item Value Reference Range Interpretation Comments lymphocytes as percent of blood leukocytes (test code = 736-9) 19 % [facility] Hospitalneutrophils as percent of blood hbpdrxpkbc0842-80-67 13:14:00* Test Item Value Reference Range Interpretation Comments neutrophils as percent of blood leukocytes (test code = 770-8) 72 % [facility] Hospitalplatelet gxndr6554-42-43 13:14:00* Test Item Value Reference Range Interpretation Comments platelet count (test code = 777-3) 262 X10E3/UL 150-450 [facility] Hospitalred blood cell distribution mljhv9008-61-79 13:14:00* Test Item Value Reference Range Interpretation Comments red blood cell distribution width (test code = 788-0) 14.6 % 11.6-15.4 [facility] Hospitalmean corpuscular hemoglobin concentration, NSM8331-36-83 13:14:00* Test Item Value Reference Range Interpretation Comments mean corpuscular hemoglobin concentration, RBC (test code = 786-4) 31.7 G/DL 31.5-35.7 [facility] Hospitalmean corpuscular hemoglobin, ZXP5765-47-77 13:14:00* Test Item Value Reference Range Interpretation Comments mean corpuscular hemoglobin, RBC (test code = 785-6) 30.3 pg 2 6.6-33.0 [facility] Hospitalmean corpuscular volume, QJT8609-24-40 13:14:00* Test Item Value Reference Range Interpretation Comments mean corpuscular volume, RBC (test code = 787-2) 95 fL 79-97 [facility] Hospitalhematocrit, rukla1238-42-70 13:14:00* Test Item Value Reference Range Interpretation Comments hematocrit, blood (test code = 4544-3) 35.3 % 37.5-51.0 L [facility] Hospitalhemoglobin, wgtxz4871-68-09 13:14:00* Test Item Value Reference Range Interpretation Comments hemoglobin, blood (test code = 718-7) 11.2 g/dL 13.0-17.7 L [facility] Hospitalerythrocyte (RBC) hscij8997-65-64 13:14:00* Test Item Value Reference Range Interpretation Comments erythrocyte (RBC) count (test code = 789-8) 3.70 X10E6/UL 4.14-5.80 L [facility] Hospitalleukocyte count, ivxqr1243-03-75 13:14:00* Test Item Value Reference Range Interpretation Comments leukocyte count, blood (test code = 6690-2) 7.9 X10E3/UL 3.4-10.8 [facility] Hospitalmicroalbumin/total urine mkrdhv2791-46-58 12:51:00* Test Item Value Reference Range Interpretation Comments microalbumin/total urine volume (test code = 58338-9) 2916.8 mg/L [facility] Hospitalcreatinine, random, ntlvi2878-15-98 12:51:00* Test Item Value Reference Range Interpretation Comments creatinine, random, urine (test code = 2161-8) 48.8 mg/dL [facility] Hospitalbacteria, urine oyeuxyzwfe9369-78-16 12:51:00* Test Item Value Reference Range Interpretation Comments bacteria, urine microscopy (test code = 5769-5) Few None s een/Few [facility] Hospitalmucus on bjudkytqdy4581-05-00 12:51:00* Test Item Value Reference Range Interpretation Comments mucus on urinalysis (test code = 8247-9) Present [facility] Hospitalepithelial cells, zxvda8891-44-57 12:51:00* Test Item Value Reference Range Interpretation Comments epithelial cells, urine (test code = 5787-7) None seen 0-10 [facility] HospitalRBC, Jvafm5309-97-93 12:51:00* Test Item Value Reference Range Interpretation Comments RBC, Urine (test code = 66751-9) 0-2 /hpf 0-2 [facility] HospitalWBC urine on sutxvxyogi2679-01-15 12:51:00* Test Item Value Reference Range Interpretation Comments WBC urine on microscopy (test code = 1016) 0-5 /hpf 0-5 [facility] Hospitalurinalysis, microscopic hjcpbyakmfs1912-41-52 12:51:00* Test Item Value Reference Range Interpretation Comments urinalysis, microscopic examination (test code = 05468-7) See below : [facility] Hospitalnitrate, gwmub3631-47-87 12:51:00* Test Item Value Reference Range Interpretation Comments nitrate, urine (test code = 18051-8) Negative Negative [facility] Hospitalurobilinogen, urine, semiquantitative (dipstick) 2020-01-06 12:51:00* Test Item Value Reference Range Interpretation Comments urobilinogen, urine, semiquantitative (dipstick) (test code = 5818-0) 0.2 0.2-1.0 [facility] Hospitalbilirubin, yviyb6070-99-48 12:51:00* Test Item Value Reference Range Interpretation Comments bilirubin, urine (test code = 5770-3) Negative Negative [facility] Hospitalketones, urine, by test omukf1391-98-57 12:51:00* Test Item Value Reference Range Interpretation Comments ketones, urine, by test strip (test code = 5797-6) Negative Neg ative [facility] Hospitalglucose, urine, ktmmtttfsgdtjqqj3245-36-78 12:51:00* Test Item Value Reference Range Interpretation Comments glucose, urine, semiquantitative (test code = 5792-7) 2+ Negative A [facility] Hospitalprotein, urine, semiquantitative (dipstick)2020-01-06 12:51:00* Test Item Value Reference Range Interpretation Comments protein, urine, semiquantitative (dipstick) (test code = 1753-3) 60 8.4 [facility] Hospitalleukocyte esterase, urine, by gcslgbqw0913-47-97 12:51:00 * Test Item Value Reference Range Interpretation Comments leukocyte esterase, urine, by dipstick (test code = 5799-2) Negativ e Negative [facility] Hospitalappearance, qqcea4677-81-70 12:51:00* Test Item Value Reference Range Interpretation Comments appearance, urine (test code = 5767-9) Clear Clear [facility] Hospitalurine ygbbd3181-36-15 12:51:00* Test Item Value Reference Range Interpretation Comments urine color (test code = 5778-6) Yellow Yellow [facility] HospitalpH, urine, pzjvrygjynlacvip0186-40-91 12:51:00* Test Item Value Reference Range Interpretation Comments pH, urine, semiquantitative (test code = 5803-2) 6.5 5.0-7 .5 [facility] Hospitalspecific gravity, body rkyhn2578-42-64 12:51:00* Test Item Value Reference Range Interpretation Comments specific gravity, body fluid (test code = 2964-5) 1.014 1.00 5-1.030 [facility] Hospitalparathormone, tzrng0429-99-70 12:20:00* Test Item Value Reference Range Interpretation Comments parathormone, serum (test code = 2731-8) 153 pg/mL 15-65 [facility] Healthmagnesium, zzfua0356-75-10 12:20:00* Test Item Value Reference Range Interpretation Comments magnesium, serum (test code = 2601-3) 2.1 mg/dL 1.6-2.3 [facility] Hospitalphosphate, nbjph1940-83-67 12:20:00* Test Item Value Reference Range Interpretation Comments phosphate, serum (test code = 2777-1) 5.6 mg/dL 2.8-4.1 H [facility] Hospitaluric acid, aciba6830-19-93 12:20:00* Test Item Value Reference Range Interpretation Comments uric acid, serum (test code = 3084-1) 6.2 mg/dL 3.7-8.6 [facility]fructosamine, serum, yakeuibangkf5969-10-15 12:20:00* Test Item Value Reference Range Interpretation Comments fructosamine, serum, quantitative (test code = 3364) 0.25 mm ol/L Units converted. See lab report for original value. [facility] Hospitalvitamin D 25-hydroxy, nflwx8418-54-13 12:20:00* Test Item Value Reference Range Interpretation Comments vitamin D 25-hydroxy, serum (test code = 94817-1) 10.0 ng/mL 30.0 -100.0 L [facility] Hospitalhemoglobin A1C, blood, as % of total vxvhpefmbg2075-34-50 12:20:00* Test Item Value Reference Range Interpretation Comments hemoglobin A1C, blood, as % of total hemoglobin (test code = 4548-4) 7.4 % 4.8-5.6 H [facility] Hospitalcalcium, ogrev5971-21-56 12:20:00* Test Item Value Reference Range Interpretation Comments calcium, serum (test code = 2000-8) 8.9 mg/dL 8.7-10.2 [facility] Hospitalcarbon dioxide, venous dbxnp8156-71-93 12:20:00* Test Item Value Reference Range Interpretation Comments carbon dioxide, venous blood (test code = 2027-1) 18 mmol/L 20-2 9 L [facility] Healthchloride, qpafj8186-55-26 12:20:00* Test Item Value Reference Range Interpretation Comments chloride, serum (test code = 2075-0) 101 mmol/L 96-106 [facility] Hospitalpotassium, lkxqw8658-30-04 12:20:00* Test Item Value Reference Range Interpretation Comments potassium, serum (test code = 2823-3) 4.9 mmol/L 3.5-5.2 [facility] Hospitalsodium, ckqos7674-91-55 12:20:00* Test Item Value Reference Range Interpretation Comments sodium, serum (test code = 2951-2) 136 mmol/L 134-144 [facility] Hospitalurea nitrogen/creatinine ratio, rpiug8102-60-16 12:20:00 * Test Item Value Reference Range Interpretation Comments urea nitrogen/creatinine ratio, serum (test code = 3097-3) 12 9-20 [facility] HospitaleGFR if Luerhnzg0707-91-58 12:20:00* Test Item Value Reference Range Interpretation Comments eGFR if (test code = 80784-0) 19 mL/min/((173/100) .m2) >59 L [facility] HospitalEstimated Glomerular Filtration Rate (calc)2020-01-06 12:20:00* Test Item Value Reference Range Interpretation Comments Estimated Glomerular Filtration Rate (calc) (test code = 05822-2) 16 mL/min/((173/100).m2) >59 L [facility] Hospitalcreatinine, gglpz5585-98-13 12:20:00* Test Item Value Reference Range Interpretation Comments creatinine, serum (test code = 2160-0) 3.94 mg/dL 0.76-1.27 H [facility] Hospitalurea nitrogen, kyrqi0228-66-68 12:20:00* Test Item Value Reference Range Interpretation Comments urea nitrogen, blood (test code = 3094-0) 47 mg/dL 6-24 H [facility] Hospitalblood glucose, ppbtmx6750-51-00 12:20:00* Test Item Value Reference Range Interpretation Comments blood glucose, random (test code = 2339-0) 211 mg/dL 65-99 H [facility] Hospitalimmature granulocytes, percentage of total cells, blood 2020-01-06 12:20:00* Test Item Value Reference Range Interpretation Comments immature granulocytes, percentage of total cells, bloo d (test code = 21293-4) 0 % [facility] Hospitalbasophil count, iuoacrxg1299-27-42 12:20:00* Test Item Value Reference Range Interpretation Comments basophil count, absolute (test code = 27312-1) 0.1 x10E3/uL 0.0-0.2 [facility] HospitalEosinophil Absolute Kakdu8781-29-61 12:20:00* Test Item Value Reference Range Interpretation Comments Eosinophil Absolute Count (test code = 91825-8) 0.3 X10E3/UL 0.0-0. 4 [facility] Hospitalmonocyte count, blood, evmkvmwco5349-22-72 12:20:00* Test Item Value Reference Range Interpretation Comments monocyte count, blood, automated (test code = 742-7) 0.5 X10E3/UL 0 .1-0.9 [facility] Hospitallymphocyte count, blood, wwkhzzuam0306-92-55 12:20:00* Test Item Value Reference Range Interpretation Comments lymphocyte count, blood, automated (test code = 731-0) 1.6 X10E3/UL 0.7-3.1 [facility] HospitalAbsolute Jnbctpdpgbu6424-23-85 12:20:00* Test Item Value Reference Range Interpretation Comments Absolute Neutrophils (test code = 63010-3) 6.5 X10E3/UL 1.4-7.0 [facility] Hospitalbasophils as percent of blood mzkotqmrei9129-15-80 12:20:00* Test Item Value Reference Range Interpretation Comments basophils as percent of blood leukocytes (test code = 707-0) 1 % [facility] Hospitaleosinophils as percent of blood qeahoglwrh9288-73-39 12:20:00* Test Item Value Reference Range Interpretation Comments eosinophils as percent of blood leukocytes (test code = 713-8) 4 % [facility] Hospitalmonocytes as percent of blood pgbuitnaxh9351-47-00 12:20:00* Test Item Value Reference Range Interpretation Comments monocytes as percent of blood leukocytes (test code = 5905-5) 6 % [facility] Hospitallymphocytes as percent of blood tkuwddflgy6272-27-51 12:20:00* Test Item Value Reference Range Interpretation Comments lymphocytes as percent of blood leukocytes (test code = 736-9) 18 % [facility] Hospitalneutrophils as percent of blood fzmpyyasmf0359-26-80 12:20:00* Test Item Value Reference Range Interpretation Comments neutrophils as percent of blood leukocytes (test code = 770-8) 71 % [facility] Hospitalplatelet pvymh5416-18-67 12:20:00* Test Item Value Reference Range Interpretation Comments platelet count (test code = 777-3) 297 X10E3/UL 150-450 [facility] Hospitalred blood cell distribution jejli9115-01-89 12:20:00* Test Item Value Reference Range Interpretation Comments red blood cell distribution width (test code = 788-0) 14.4 % 11.6-15.4 [facility] Hospitalmean corpuscular hemoglobin concentration, CIY4245-62-74 12:20:00* Test Item Value Reference Range Interpretation Comments mean corpuscular hemoglobin concentration, RBC (test code = 786-4) 30.7 G/DL 31.5-35.7 L [facility] corpuscular hemoglobin, PPC7180-92-24 12:20:00* Test Item Value Reference Range Interpretation Comments mean corpuscular hemoglobin, RBC (test code = 785-6) 30.3 pg 2 6.6-33.0 [facility] corpuscular volume, BUQ8323-77-03 12:20:00* Test Item Value Reference Range Interpretation Comments mean corpuscular volume, RBC (test code = 787-2) 99 fL 79-97 H [facility] Hospitalhematocrit, xhjtf9285-42-08 12:20:00* Test Item Value Reference Range Interpretation Comments hematocrit, blood (test code = 4544-3) 40.4 % 37.5-51.0 [facility] Hospitalhemoglobin, lrxro8137-72-31 12:20:00* Test Item Value Reference Range Interpretation Comments hemoglobin, blood (test code = 718-7) 12.4 g/dL 13.0-17.7 L [facility] Hospitalerythrocyte (RBC) rdofg2164-86-17 12:20:00* Test Item Value Reference Range Interpretation Comments erythrocyte (RBC) count (test code = 789-8) 4.09 X10E6/UL 4.14-5.80 L [facility] Hospitalleukocyte count, mtegy5687-89-66 12:20:00* Test Item Value Reference Range Interpretation Comments leukocyte count, blood (test code = 6690-2) 9.0 X10E3/UL 3.4-10.8 [facility] glucose, ftbnrup1727-25-99 10:53:25* Test Item Value Reference Range Interpretation Comments blood glucose, fasting (test code = 7) 128 mg/dL [facility] Epzjigm8520-76-15 08:09:00* Test Item Value Reference Range Interpretation Comments Bedside Glucose (test code = 61776-5) 106 70-120 Meter ID: [id number] Level 2019-10-13 05:37:00* Test Item Value Reference Range Interpretation Comments Sodium Level (test code = 2951-2) 130 136-145 L [facility] Hfcev0551-39-53 05:37:00* Test Item Value Reference Range Interpretation Comments Potassium Level (test code = 2823-3) 4.2 3.5-5.1 [facility]Chloride Cnxgx1634-56-59 05:37:00* Test Item Value Reference Range Interpretation Comments Chloride Level (test code = 2075-0) 108 98-107 H [facility] CenterCarbon Dioxide Yoyyp3407-23-21 05:37:00* Test Item Value Reference Range Interpretation Comments Carbon Dioxide Level (test code = 2028-9) 16 22-29 L [facility] CenterAnion Tlm4445-01-62 05:37:00* Test Item Value Reference Range Interpretation Comments Anion Gap (test code = 72307-8) 10.2 8-16 [facility] CenterBlood Urea Dwjdmhvj2110-05-26 05:37:00* Test Item Value Reference Range Interpretation Comments Blood Urea Nitrogen (test code = 3094-0) 33 7-26 H [facility] CenterCreatinine2019-12-06 05:37:00* Test Item Value Reference Range Interpretation Comments Creatinine (test code = 2160-0) 2.88 0.72-1.25 H [facility] CenterBUN/Creatinine Cdpnf8248-23-88 05:37:00* Test Item Value Reference Range Interpretation Comments BUN/Creatinine Ratio (test code = 3097-3) 11 6-25 [facility] CenterEstimat Glomerular Filtration Rate 2019-10-13 05:37:00* Test Item Value Reference Range Interpretation Comments Estimat Glomerular Filtration Rate (test code = 530237605) 23 >60 L Ranges were taken from the National Kidney Disease Education Program and the [facility] literature.Reference ranges:60 or greater: Gtdpyr58-85 ( for 3 consecutive months): Chronic kidney disease 15 or less: Kidney failureKnapp Medical CenterGlucose Youfy9132-14-65 05:37:00* Test Item Value Reference Range Interpretation Comments Glucose Level (test code = ELL1605) 112 74-118 [facility] CenterCalcium Lyfjl8177-59-80 05:37:00* Test Item Value Reference Range Interpretation Comments Calcium Level (test code = 22199-9) 8.4 8.4-10.2 [facility] CenterBlood Bsxjqqb7912-01-78 23:15:00* Test Item Value Reference Range Interpretation Comments Blood Culture (test code = 06880199) NO GROWTH AFTER 5 DAYS, FINAL REPORT [facility] CenterWhite Blood Zvmlj7694-72-07 06:32:00* Test Item Value Reference Range Interpretation Comments White Blood Count (test code = 6690-2) 12.18 4.8-10.8 H [facility] CenterRed Blood Zetdp8485-68-37 06:32:00* Test Item Value Reference Range Interpretation Comments Red Blood Count (test code = 789-8) 3.21 4.3-5.7 L [facility] CenterHemoglobin2019-12-05 06:32:00* Test Item Value Reference Range Interpretation Comments Hemoglobin (test code = 13863-8) 9.9 14.0-18.0 L [facility] CenterHematocrit2019-12-05 06:32:00* Test Item Value Reference Range Interpretation Comments Hematocrit (test code = 4544-3) 29.9 38.2-49.6 L [facility] CenterMean Corpuscular Zbfrco9636-19-20 06:32:00* Test Item Value Reference Range Interpretation Comments Mean Corpuscular Volume (test code = 787-2) 93.1 81-99 [facility] CenterMean Corpuscular Ybgkneymdi6826-18-04 06:32:00* Test Item Value Reference Range Interpretation Comments Mean Corpuscular Hemoglobin (test code = 785-6) 30.8 28-32 [facility] CenterMean Corpuscular Hemoglobin Concent 2019-10-12 06:32:00* Test Item Value Reference Range Interpretation Comments Mean Corpuscular Hemoglobin Concent (test code = 786-4) 33.1 31-35 [facility] CenterRed Cell Distribution Pxrdf2498-36-98 06:32:00* Test Item Value Reference Range Interpretation Comments Red Cell Distribution Width (test code = 36634-9) 12.5 11.7 -14.4 [facility] CenterPlatelet Sdwwf2234-27-66 06:32:00* Test Item Value Reference Range Interpretation Comments Platelet Count (test code = 777-3) 367 140-360 H [facility] CenterNeutrophils (%) (Auto)2019-10-12 06:32:00 * Test Item Value Reference Range Interpretation Comments Neutrophils (%) (Auto) (test code = 03287-2) 70.8 38.7-80.0 [facility] CenterLymphocytes (%) (Auto)2019-10-12 06:32:00 * Test Item Value Reference Range Interpretation Comments Lymphocytes (%) (Auto) (test code = 736-9) 17.7 18.0-39.1 L [facility] CenterMonocytes (%) (Auto)2019-10-12 06:32:00* Test Item Value Reference Range Interpretation Comments Monocytes (%) (Auto) (test code = 5905-5) 6.7 4.4-11.3 [facility] CenterEosinophils (%) (Auto)2019-10-12 06:32:00 * Test Item Value Reference Range Interpretation Comments Eosinophils (%) (Auto) (test code = 713-8) 2.7 0.0-6.0 [facility] CenterBasophils (%) (Auto)2019-10-12 06:32:00* Test Item Value Reference Range Interpretation Comments Basophils (%) (Auto) (test code = 706-2) 0.5 0.0-1.0 [facility] CenterIM GRANULOCYTES %2019-10-12 06:32:00* Test Item Value Reference Range Interpretation Comments IM GRANULOCYTES % (test code = IM GRANULOCYTES %) 1.6 0.0- 1.0 H [facility] CenterNeutrophils # (Auto)2019-10-12 06:32:00* Test Item Value Reference Range Interpretation Comments Neutrophils # (Auto) (test code = 751-8) 8.6 2.1-6.9 H [facility] CenterLymphocytes # (Auto)2019-10-12 06:32:00* Test Item Value Reference Range Interpretation Comments Lymphocytes # (Auto) (test code = 59221-3) 2.2 1.0-3.2 [facility] CenterMonocytes # (Auto)2019-10-12 06:32:00* Test Item Value Reference Range Interpretation Comments Monocytes # (Auto) (test code = 742-7) 0.8 0.2-0.8 [facility] CenterEosinophils # (Auto)2019-10-12 06:32:00* Test Item Value Reference Range Interpretation Comments Eosinophils # (Auto) (test code = 711-2) 0.3 0.0-0.4 [facility] CenterBasophils # (Auto)2019-10-12 06:32:00* Test Item Value Reference Range Interpretation Comments Basophils # (Auto) (test code = 704-7) 0.1 0.0-0.1 [facility] CenterAbsolute Immature Granulocyte (auto 2019-10-12 06:32:00* Test Item Value Reference Range Interpretation Comments Absolute Immature Granulocyte (auto (manuel t code = Absolute Immature Granulocyte (auto) 0.19 0-0.1 H [facility] CenterProcalcitonin2019-12-04 22:39:00* Test Item Value Reference Range Interpretation Comments Procalcitonin (test code = 856418603) 40.77 0.00-0.08 H A procalcitonin (PCT) level above 2.0 ng/mL on the firstday of ICU admission is associated with a high risk forprogression to severe sepsis and/or septic shock. A PCT level below 0.5 ng/mL on the first day of ICUadmission is associated with a low risk for progressionto severe sepsis and/or septic shock.Note: Concentrati ons <0.5 ng/mL do not exclude aninfection, on account of localized infections (withoutsystemic signs) which can be associated with such lowconcentrations, or a systemic infection in its initialstages (<6 hours).Furthermore, increased procalcitonin can occur withoutinfection. PCT concentrations between 0.5 and 2.0 ng/mLshould be interpreted taking into account the patient'shistory. It is recommended to retest PCT within 6-24 hoursif any concentrations <2 ng/mL are obtained.Performed at: [facility] - [facility] [address] [id number] Director: Daniel Huynh MD, Phone: [phone] [facility] CenterUS RENAL RETROPERITONEAL ILFP3275-13-54 13:36:00 [facility] [address] [address] Patient Name: PRISCILLA ZAMUDIO MR #: [id number] : 1965 Age/Sex: 54/M Req #: [id number] Adm Physician: ROBBY LARSEN MD Ordered by: ROBBY LARSEN MD Report #: [id number] [facility] Room/Bed: [facility] Procedure: [id number] US/US R ENAL RETROPERITONEAL COMP Exam Date: 10/10/19 Exam T elisa: [id number] REPORT STATUS: Signed EXAM: US RENAL RETROPERITONEAL COMP DATE: 10/10/2019 12:00 AM INDICA TION: Acute kidney injury versus chronic kidney disease COMPARISON: CT ab domen/pelvis without contrast from 10/08/2019 FINDINGS: The right kidney i s normal in size measuring 11.8 x 5.2 x 5.2 cm with cortical thickness of 1.8 cm. Cortical echogenicity is within normal limits. There is no evidence for so lid renal mass, hydronephrosis, or shadowing calculi. The left kidney is no rmal in size measuring 11.9 x 6.8 x 4.7 cm with cortical thickness of 1.7 cm. Cortical echogenicity is within normal limits. There is no evidence for solid renal mass, hydronephrosis, or shadowing calculi. The partially distended u rinary bladder appears unremarkable. Void volume is 106 cc. Bilateral ureteral jets are noted. IMPRESSION: Unremarkable sonographic appearance of the bilateral kidneys. Signed by: Dr. Isidro Tobar MD on 10/10/2019 1:38 PM Dictated By: ISIDRO TOBAR MD 37 Transcribed By: KEN on 10/10/191337 COPY TO: ROBBY APPIAH MD MRI FOOT LEFT [id number] 09:38:00 [place] [address] Patient Name: PRISCILLA ZAMUDIO MR #: [id number] : 1965 Age/Sex: 54/M Req #: [id number] Adm Physician: ROBBY LARSEN MD Ordered by: CARLOS A SANCHEZ DO Report #: [id number] Location: [facility]/SURG3 Room/Bed: [facility] Procedure: [id number] MRI/MR I FOOT LEFT WO Exam Date: Exam Time: REPORT STATUS: Signed TECHNIQUE: Magnetic r esonance imaging of the LEFT foot was performed WITHOUT injected contrast. HISTORY: Pain, evaluate for infection COMPARISON: None available. DISC USSION: Soft tissue ulceration of the hallux bone marrow edema and T1 repl acement involving the distal phalanx. Mild edema involving the distal asp ect of the proximal phalanx without T1 replacement. Degenerative arthrosi s of the first MTP joint. Soft tissue swelling of the foot. No abscess. Atrophy of the musculature. 9 mm plantar fibroma. IMPRESSION: Osteomyelitis distal phalanx of the hallux and probable early osteomyelitis of the distal aspect of the proximal phalanx. Signed by: Dr. Berlin Horn M.D. on 10/09/2019 9:40 AM Dictated By: BERLIN HORN MD Electronicall y Signed By: BERLIN HORN MD on 10/09/19939 Transcribed By: KEN on 939 COPY TO: CARLOS A SANCHEZ DO Triglycerides Level 2019-10-09 08:01:00* Test Item Value Reference Range Interpretation Comments Triglycerides Level (test code = 2571-8) 173 0-149 H [facility] Hpjdc7401-35-49 08:01:00* Test Item Value Reference Range Interpretation Comments Cholesterol Level (test code = 2093-3) 167 0-199 Less than 200 mg/dL Low Awfw222 - 239 mg/dL Borderline Lwui544 m g/dl and greater High Risk [facility] CenterLDL Vfivgcrnret1065-47-37 08:01:00* Test Item Value Reference Range Interpretation Comments LDL Cholesterol (test code = 2089-1) 108 60-130 [facility]HDL Micobpbopib7130-53-02 08:01:00* Test Item Value Reference Range Interpretation Comments HDL Cholesterol (test code = 2085-9) 24 40-60 L [facility]Cholesterol/HDL Majrk2283-77-06 08:01:00 * Test Item Value Reference Range Interpretation Comments Cholesterol/HDL Ratio (test code = 9830-1) 7.0 3.9-4.7 H [facility] CenterHemoglobin A1c Nkvdeyk2908-88-13 08:00:00 * Test Item Value Reference Range Interpretation Comments Hemoglobin A1c Percent (test code = Hemoglobin A1c Percent) 7.8 4.0-7.0 H [facility] CenterLactic Acid Niyua4655-88-89 06:18:00* Test Item Value Reference Range Interpretation Comments Lactic Acid Level (test code = Lactic Acid Level) 0.6 0.5- 2.0 [facility] CenterDifferential Total Cells Counted 2019-10-08 22:40:00* Test Item Value Reference Range Interpretation Comments Differential Total Cells Counted (test code = Differen tial Total Cells Counted) 100 [facility] CenterNeutrophils % (Manual)2019-10-08 22:40:00 * Test Item Value Reference Range Interpretation Comments Neutrophils % (Manual) (test code = 63047-3) 76 40-74 [facility] CenterBand Neutrophils %2019-10-08 22:40:00* Test Item Value Reference Range Interpretation Comments Band Neutrophils % (test code = 764-1) 5 [facility] CenterLymphocytes % (Manual)2019-10-08 22:40:00 * Test Item Value Reference Range Interpretation Comments Lymphocytes % (Manual) (test code = 737-7) 12 19-48 L [facility] CenterMonocytes % (Manual)2019-10-08 22:40:00* Test Item Value Reference Range Interpretation Comments Monocytes % (Manual) (test code = 744-3) 6 3.4-9.0 [facility] CenterPlasma Cells % (manual)2019-10-08 22:40:00* Test Item Value Reference Range Interpretation Comments Plasma Cells % (manual) (test code = 34225-4) 1 [facility] CenterPlatelet Swgxjwwq4939-16-74 22:40:00* Test Item Value Reference Range Interpretation Comments Platelet Estimate (test code = 87384-4) ADEQUATE [facility] CenterPlatelet Morphology Xvrlmgb1981-54-13 22:40:00* Test Item Value Reference Range Interpretation Comments Platelet Morphology Comment (test code = 45093-5) FEW LARGE [facility] CenterAnisocytosis2019-12-01 22:40:00* Test Item Value Reference Range Interpretation Comments Anisocytosis (test code = 702-1) SLIGHT [facility] CenterCT ABDOMEN/PELVIS CY4056-07-71 18:55:00 [facility] [address] [address] Patient Name: PRISCILLA ZAMUDIO MR #: [id number] : 1965 Age/Sex: 54/M Req #: [id number] Adm Physician: ROBBY LARSEN MD Ordered by: BELA WALSH MD Report #: [id number] Location: MED/SURG3 Room/Bed: [facility] Procedure: [id number] CT/CT ABDOMEN/PELVIS WO Exam Date: 10/08/19 Exam Time: 18 48 REPORT STATUS: Signed CT Abdo men and Pelvis without contrast INDICATION: Loose bowels and leukocytosis loose bm's [id number] TECHNIQUE: Thin collimation axial images obtained from the diaphragm to the level of the pubic symphysis without nonio ritesh intravenous contrast. Dose reduction techniques used: Automated exposu re control, adjustment of the mAs and/or kVp according to patient size, standa rdized low-dose protocol, and/or iterative reconstruction technique. RADI ATION DOSE: Total DLP: 719.8 mGy*cm Estimated effective dose: (DLP x 0.015 x size factor) mSv CTDIvol has been reviewed. It is below the li mits set by the Radiation Protocol Committee (RPC). COMPARISON: None. ABDOMEN FINDINGS: Lung Bases: Mild bibasilar atelectasis. The heart is m ildly enlarged to top normal in size. Liver: Cirrhosis. No mass on these unenhanced images. Gallbladder: Present and appears normal. No ductal dila tation. Pancreas: Mild fatty atrophy. No soft tissue mass or ductal dilatat ion. Tiny calcifications in the uncinate process. Spleen: 14 cm in length . No mass. Adrenal Glands: No evidence for mass. Kidneys: Mild perinep hric inflammation. Right: No renal calculus. No cortical mass or hydroneph rosis Left: No renal calculus. No cortical mass or hydronephrosis Ly mph Nodes: Mildly prominent aortocaval lymph nodes measuring up 12 14 mm in sh ort axis. Aorta: Normal in diameter. Scattered calcifications. PELVIS FINDINGS: Bowel: Stomach: Normal. Small Bowel: Normal in caliber wi th normal wall thickness. Large Bowel: Mild to moderate burden of stool in the right colon and transverse colon. There is fluid distending the rectum with m ild perirectal inflammation. No evidence of diverticulosis. Appendix: Normal . Bladder: Well distended and grossly normal. Ureters: No ureteral dil atation or calculus. There are calcifications in the vas deferens. The pros olmedo gland is not enlarged. Peritoneum/Retroperitoneum: Mild ascites. Bones: Mild degenerative changes of the spine. No focal osseous lesions. Soft tissues: Multiple penile calcifications. IMPRESSION: 1. Fluid distending the rectum with mild perirectal inflammation. Findings are nonspe cific. Please correlate for signs/symptoms of proctitis. No evidence of coliti s. No evidence of bowel obstruction. Normal appendix. 2. No evidence of re nal calculus or obstructive uropathy. 3. Cirrhosis and chronic pancreatitis . Signed by: Dr. Alexandra Curtis MD on 10/08/2019 7:18 PM Dictat ed By: ALEXANDRA CURTIS MD 17 COPY TO: JM WALHS MD FOOT LEFT ZRLEHFMW2546-94-12 14:38:00 [place] [address] Patient Name: PRISCILLA ZAMUDIO MR #: [id number] : 1965 Age/Sex: 54/M Req #: [id number] Adm Physician: ROBBY LARSEN MD Ordered by: BELA WALSH MD Report #: [id number] Location: MED/SURG3 Room/Bed: [facility] Procedure: [id number] DX/FO OT LEFT COMPLETE Exam Date: 10/08/19 Exam Time: 1413 REPORT STATUS: Signed Foot comp lete CPT code: 44968 Indication: Diabetic, great toe discoloration x1 month r/o gas [id number] Technique: A.P., oblique and lateral views of the left foot obtained. Comparison: Left toe x-rays 08/26/2019 Findings: Calcaneus is intact with prominent posterior spur. The midfoot is intact. There is diffuse demineralization of the distal phalanx of the great toe with surrounding soft tissue swelling and subcutaneous air. There appears to be a fracture at the volar aspect of the distal tuft nondisplaced on later al image. The other digits are intact and normal in morphology. Diffuse arterial calcifications. Ulcer at the plantar surface of the great toe at the distal tuft. IMPRESSION: Soft tissue ulceration with subcutane ous air and focal demineralization of the distal phalanx suggestive of osteomy elitis. A nondisplaced fracture of the distal tuft is suspected. Signed b y: Dr. Alexandra Curtis MD on 10/08/2019 2:41 PM Dictated By: ALEXANDRA CURTIS MD 40 Tra nscribed By: KEN on 10/08/191440 COPY TO: BELA WALSH MD Total Ccldapzha7089-41-10 23:36:00* Test Item Value Reference Range Interpretation Comments Total Bilirubin (test code = 1975-2) 0.3 0.2-1.2 [facility] CenterAspartate Amino Transf (AST/SGOT) 2019-10-07 23:36:00* Test Item Value Reference Range Interpretation Comments Aspartate Amino Transf (AST/SGOT) (test code = Aspartate Amino Transf (AST/SGOT)) 39 5-34 H [facility] CenterAlanine Aminotransferase (ALT/SGPT) 2019-10-07 23:36:00* Test Item Value Reference Range Interpretation Comments Alanine Aminotransferase (ALT/SGPT) (test code = 1742-6) 41 0-55 [facility] CenterTotal Apfjxah1802-09-92 23:36:00* Test Item Value Reference Range Interpretation Comments Total Protein (test code = 2885-2) 8.9 6.5-8.1 [facility] CenterAlbumin2019-11-30 23:36:00* Test Item Value Reference Range Interpretation Comments Albumin (test code = 1751-7) 2.1 3.5-5.0 L [facility] CenterGlobulin2019-11-30 23:36:00* Test Item Value Reference Range Interpretation Comments Globulin (test code = 58042-9) 6.8 2.3-3.5 H [facility] CenterAlbumin/Globulin Aklln1349-35-40 23:36:00 * Test Item Value Reference Range Interpretation Comments Albumin/Globulin Ratio (test code = 1759-0) 0.3 0.8-2.0 L [facility] CenterAlkaline Gjtbeohrzbk2756-03-54 23:36:00* Test Item Value Reference Range Interpretation Comments Alkaline Phosphatase (test code = 6768-6) 640 40-150 [facility] Centerhemoglobin A1C, blood, as % of total mvvvgbbrgg2510-10-99 09:36:57* Test Item Value Reference Range Interpretation Comments hemoglobin A1C, blood, as % of total hemoglobin (test code = 4548-4 ) 162 % [facility]sonood glucose, nbzbnb5407-83-01 13:25:59* Test Item Value Reference Range Interpretation Comments blood glucose, random (test code = 2339-0) 144 mg/dL [facility]vitamin D 25-hydroxy, wxpym0194-25-84 13:23:00* Test Item Value Reference Range Interpretation Comments vitamin D 25-hydroxy, serum (test code = 63907-5) 10.3 ng/mL 30.0 -100.0 L [facility] Hospitalhemoglobin A1C, blood, as % of total axffqwgzmf1396-76-11 13:23:00* Test Item Value Reference Range Interpretation Comments hemoglobin A1C, blood, as % of total hemoglobin (test code = 4548-4) 8.5 % 4.8-5.6 H [facility] HospitalLDL cholesterol, nuoum8571-95-76 13:23:00* Test Item Value Reference Range Interpretation Comments LDL cholesterol, serum (test code = 2089-1) 116 mg/dL 0-99 [facility] low density wmpjnfvtnjhb4998-74-06 13:23:00* Test Item Value Reference Range Interpretation Comments very low density lipoproteins (test code = 2091-7) 22 mg/dL 5-4 0 [facility] HospitalHDL cholesterol, fodsm9418-90-80 13:23:00* Test Item Value Reference Range Interpretation Comments HDL cholesterol, serum (test code = 2085-9) 76 mg/dL >39 [facility] Hospitaltriglyceride, serum, myzosrj3091-75-20 13:23:00* Test Item Value Reference Range Interpretation Comments triglyceride, serum, fasting (test code = 2571-8) 112 mg/dL 0-14 9 [facility] Hospitalcholesterol, adrjb0461-79-24 13:23:00* Test Item Value Reference Range Interpretation Comments cholesterol, serum (test code = 2093-3) 214 mg/dL 100-199 H [facility] Hospitalalanine aminotransferase (SGPT), fzvin7957-82-22 13:23:00 * Test Item Value Reference Range Interpretation Comments alanine aminotransferase (SGPT), serum (test code = 1742-6) 75 1/L 0-44 H [facility] Hospitalaspartate aminotransferase (SGOT), hsmdg0231-72-34 13:23:00* Test Item Value Reference Range Interpretation Comments aspartate aminotransferase (SGOT), serum (test code = 1920-8) 82 1/ L 0-40 H [facility] Hospitalalkaline phosphatase, vmdry4235-14-21 13:23:00* Test Item Value Reference Range Interpretation Comments alkaline phosphatase, serum (test code = 1783-0) 580 1/L 39-11 7 H [facility] Hospitalbilirubin, serum, yrbxm4120-63-26 13:23:00* Test Item Value Reference Range Interpretation Comments bilirubin, serum, total (test code = 1975-2) 0.3 mg/dL 0.0-1.2 [facility] Hospitalalbumin/globulin ratio, vuzdd5079-08-65 13:23:00* Test Item Value Reference Range Interpretation Comments albumin/globulin ratio, serum (test code = 1759-0) 0.7 1.2 -2.2 L [facility] Hospitalglobulin, ivfnw4839-31-29 13:23:00* Test Item Value Reference Range Interpretation Comments globulin, serum (test code = 2336-6) 4.3 1.5-4.5 [facility] Hospitalalbumin, ygvjr3170-24-94 13:23:00* Test Item Value Reference Range Interpretation Comments albumin, serum (test code = 1751-7) 3.0 g/dL 3.5-5.5 L [facility] Healthprotein, total, eegdi9181-59-68 13:23:00* Test Item Value Reference Range Interpretation Comments protein, total, serum (test code = 2885-2) 7.3 g/dL 6.0-8.5 [facility] Hospitalcalcium, vyjnt0389-58-19 13:23:00* Test Item Value Reference Range Interpretation Comments calcium, serum (test code = 2000-8) 9.1 mg/dL 8.7-10.2 [facility] Hospitalcarbon dioxide, venous ajopa5368-81-66 13:23:00* Test Item Value Reference Range Interpretation Comments carbon dioxide, venous blood (test code = 2027-1) 20 mmol/L 20-2 9 [facility] Hospitalchloride, ckoym3436-64-81 13:23:00* Test Item Value Reference Range Interpretation Comments chloride, serum (test code = 2075-0) 107 mmol/L 96-106 H [facility] Hospitalpotassium, vatog2523-91-55 13:23:00* Test Item Value Reference Range Interpretation Comments potassium, serum (test code = 2823-3) 5.2 mmol/L 3.5-5.2 [facility] Hospitalsodium, mktlv0870-17-44 13:23:00* Test Item Value Reference Range Interpretation Comments sodium, serum (test code = 2951-2) 139 mmol/L 134-144 [facility] Hospitalurea nitrogen/creatinine ratio, kjygk2992-83-21 13:23:00 * Test Item Value Reference Range Interpretation Comments urea nitrogen/creatinine ratio, serum (test code = 3097-3) 12 9-20 [facility] HealtheGFR if Ysceqzbb3583-27-19 13:23:00* Test Item Value Reference Range Interpretation Comments eGFR if (test code = 99005-6) 32 mL/min/((173/100) .m2) >59 L [facility] HospitalEstimated Glomerular Filtration Rate (calc)2019-09-16 13:23:00* Test Item Value Reference Range Interpretation Comments Estimated Glomerular Filtration Rate (calc) (test code = 61414-6) 28 mL/min/((173/100).m2) >59 L [facility] Hospitalcreatinine, vfpte7463-99-40 13:23:00* Test Item Value Reference Range Interpretation Comments creatinine, serum (test code = 2160-0) 2.52 mg/dL 0.76-1.27 H [facility] Hospitalurea nitrogen, bqlli3989-86-81 13:23:00* Test Item Value Reference Range Interpretation Comments urea nitrogen, blood (test code = 3094-0) 31 mg/dL 6-24 H [facility] Hospitalblood glucose, slbezw1769-56-39 13:23:00* Test Item Value Reference Range Interpretation Comments blood glucose, random (test code = 2339-0) 159 mg/dL 65-99 H [facility] Hospitalimmature granulocytes, percentage of total cells, blood 2019-09-16 13:23:00* Test Item Value Reference Range Interpretation Comments immature granulocytes, percentage of total cells, bloo d (test code = 16113-0) 0 % [facility] Hospitalbasophil count, uvywmmqn2293-23-35 13:23:00* Test Item Value Reference Range Interpretation Comments basophil count, absolute (test code = 00217-2) 0.0 x10E3/uL 0.0-0.2 [facility] HospitalEosinophil Absolute Bajgz0219-54-45 13:23:00* Test Item Value Reference Range Interpretation Comments Eosinophil Absolute Count (test code = 41386-5) 0.3 X10E3/UL 0.0-0. 4 [facility] Hospitalmonocyte count, blood, rfxdqimje5004-31-45 13:23:00* Test Item Value Reference Range Interpretation Comments monocyte count, blood, automated (test code = 742-7) 0.8 X10E3/UL 0 .1-0.9 [facility] Hospitallymphocyte count, blood, rdtmqvcmj6517-36-18 13:23:00* Test Item Value Reference Range Interpretation Comments lymphocyte count, blood, automated (test code = 731-0) 2.2 X10E3/UL 0.7-3.1 [facility] HospitalAbsolute Lxjbvscirac5621-77-73 13:23:00* Test Item Value Reference Range Interpretation Comments Absolute Neutrophils (test code = 91821-9) 10.0 X10E3/UL 1.4-7.0 H [facility] Hospitalbasophils as percent of blood uszxofvedb6772-30-78 13:23:00* Test Item Value Reference Range Interpretation Comments basophils as percent of blood leukocytes (test code = 707-0) 0 % [facility] Hospitaleosinophils as percent of blood hjvznfkcky7992-52-11 13:23:00* Test Item Value Reference Range Interpretation Comments eosinophils as percent of blood leukocytes (test code = 713-8) 3 % [facility] Hospitalmonocytes as percent of blood juwbxpmjkk2255-23-98 13:23:00* Test Item Value Reference Range Interpretation Comments monocytes as percent of blood leukocytes (test code = 5905-5) 6 % [facility] Hospitallymphocytes as percent of blood dnhoolocrv7955-74-58 13:23:00* Test Item Value Reference Range Interpretation Comments lymphocytes as percent of blood leukocytes (test code = 736-9) 17 % [facility] Hospitalneutrophils as percent of blood gyigvxzqhc9278-71-27 13:23:00* Test Item Value Reference Range Interpretation Comments neutrophils as percent of blood leukocytes (test code = 770-8) 74 % [facility] Hospitalplatelet mnuuq3048-47-70 13:23:00* Test Item Value Reference Range Interpretation Comments platelet count (test code = 777-3) 386 X10E3/UL 150-450 [facility] Hospitalred blood cell distribution hsrcg3130-88-70 13:23:00* Test Item Value Reference Range Interpretation Comments red blood cell distribution width (test code = 788-0) 13.1 % 12.3-15.4 [facility] corpuscular hemoglobin concentration, RRP5318-99-82 13:23:00* Test Item Value Reference Range Interpretation Comments mean corpuscular hemoglobin concentration, RBC (test code = 786-4) 33.5 G/DL 31.5-35.7 [facility] corpuscular hemoglobin, KMZ8667-11-77 13:23:00* Test Item Value Reference Range Interpretation Comments mean corpuscular hemoglobin, RBC (test code = 785-6) 32.1 pg 2 6.6-33.0 [facility] corpuscular volume, VAF0075-96-07 13:23:00* Test Item Value Reference Range Interpretation Comments mean corpuscular volume, RBC (test code = 787-2) 96 fL 79-97 [facility] Hospitalhematocrit, ygujo7414-32-10 13:23:00* Test Item Value Reference Range Interpretation Comments hematocrit, blood (test code = 4544-3) 35.5 % 37.5-51.0 L [facility] Hospitalhemoglobin, pxfpy5554-03-23 13:23:00* Test Item Value Reference Range Interpretation Comments hemoglobin, blood (test code = 718-7) 11.9 g/dL 13.0-17.7 L [facility] Hospitalerythrocyte (RBC) lbvqb8599-57-51 13:23:00* Test Item Value Reference Range Interpretation Comments erythrocyte (RBC) count (test code = 789-8) 3.71 X10E6/UL 4.14-5.80 L [facility] Hospitalleukocyte count, iwqay0707-75-16 13:23:00* Test Item Value Reference Range Interpretation Comments leukocyte count, blood (test code = 6690-2) 13.5 X10E3/UL 3.4-10.8 H [facility] Hospitalmicroalbumin/creatinine ratio, ucgex4432-21-99 13:15:00* Test Item Value Reference Range Interpretation Comments microalbumin/creatinine ratio, urine (test code = 17982-4) 4 905.3 MG/G CREAT 0.0-30.0 H [facility] Hospitalmicroalbumin/total urine etrjvg9748-73-21 13:15:00* Test Item Value Reference Range Interpretation Comments microalbumin/total urine volume (test code = 94135-9) 4792.5 mg/L [facility] Hospitalcreatinine, random, nnuda1413-17-97 13:15:00* Test Item Value Reference Range Interpretation Comments creatinine, random, urine (test code = 2161-8) 97.7 mg/dL [facility] Hospitalbacteria, urine zmsscrbggu9150-82-15 13:15:00* Test Item Value Reference Range Interpretation Comments bacteria, urine microscopy (test code = 5769-5) None seen None s een/Few [facility] Healthmucus on lywjzwrpyc3544-21-33 13:15:00* Test Item Value Reference Range Interpretation Comments mucus on urinalysis (test code = 8247-9) Present [facility] Appy Couplecast type, tcaggcsbwq4347-86-93 13:15:00* Test Item Value Reference Range Interpretation Comments cast type, urinalysis (test code = 86729) Granular casts N/A A [facility] Healthcasts, wdeib4441-58-91 13:15:00* Test Item Value Reference Range Interpretation Comments casts, urine (test code = 5626) Present None seen A [facility] Hospitalepithelial cells, tunna1102-99-36 13:15:00* Test Item Value Reference Range Interpretation Comments epithelial cells, urine (test code = 5787-7) 0-10 0-10 [facility] HospitalRBC, Ettiy3974-56-23 13:15:00* Test Item Value Reference Range Interpretation Comments RBC, Urine (test code = 70713-5) 0-2 /hpf 0-2 [facility] HospitalWBC urine on rionhiiwzd0503-16-74 13:15:00* Test Item Value Reference Range Interpretation Comments WBC urine on microscopy (test code = 1016) 0-5 /hpf 0-5 [facility] Hospitalurinalysis, microscopic pagyhlzddhn7404-21-13 13:15:00* Test Item Value Reference Range Interpretation Comments urinalysis, microscopic examination (test code = 28419-7) See below : [facility] Hospitalnitrate, ledgk2101-66-31 13:15:00* Test Item Value Reference Range Interpretation Comments nitrate, urine (test code = 25507-6) Negative Negative [facility] Hospitalurobilinogen, urine, semiquantitative (dipstick) 2019-09-16 13:15:00* Test Item Value Reference Range Interpretation Comments urobilinogen, urine, semiquantitative (dipstick) (test code = 5818-0) 0.2 0.2-1.0 [facility] Hospitalbilirubin, bnlow4194-47-48 13:15:00* Test Item Value Reference Range Interpretation Comments bilirubin, urine (test code = 5770-3) Negative Negative [facility] Hospitalketones, urine, by test fnbxq8469-59-20 13:15:00* Test Item Value Reference Range Interpretation Comments ketones, urine, by test strip (test code = 5797-6) Negative Neg ative [facility] Hospitalglucose, urine, nwkitdlshtdsjhyw3083-63-62 13:15:00* Test Item Value Reference Range Interpretation Comments glucose, urine, semiquantitative (test code = 5792-7) 3+ Negative A [facility] Hospitalprotein, urine, semiquantitative (dipstick)2019-09-16 13:15:00* Test Item Value Reference Range Interpretation Comments protein, urine, semiquantitative (dipstick) (test code = 175 3-3) 3+ Negative/Trace A [facility] Hospitalleukocyte esterase, urine, by sacqljxp9163-09-75 13:15:00 * Test Item Value Reference Range Interpretation Comments leukocyte esterase, urine, by dipstick (test code = 5799-2) Negativ e Negative [facility] Hospitalappearance, ulkho6213-50-35 13:15:00* Test Item Value Reference Range Interpretation Comments appearance, urine (test code = 5767-9) Clear Clear [facility] Hospitalurine yfcpe3196-71-56 13:15:00* Test Item Value Reference Range Interpretation Comments urine color (test code = 5778-6) Yellow Yellow [facility] HospitalpH, urine, zuhalvvtdssxvrpt7513-74-45 13:15:00* Test Item Value Reference Range Interpretation Comments pH, urine, semiquantitative (test code = 5803-2) 5.5 5.0-7 .5 [facility] Hospitalspecific gravity, body ezqyf8716-44-60 13:15:00* Test Item Value Reference Range Interpretation Comments specific gravity, body fluid (test code = 2964-5) 1.023 1.00 5-1.030 [facility]blood glucose, jjzwez1121-18-90 11:23:26* Test Item Value Reference Range Interpretation Comments blood glucose, random (test code = 2339-0) 198 mg/dL [facility] 2 + VIEWS LT - [id number] 20:46:00 [place] [address] Patient Name: PRISCILLA ZAMUDIO MR #: [id number] : 1965 Age/Sex: 54/M Req #: [id number] Adm Physician: Ordered by: REAL NICOLE MD Report #: [id number] Location: [facility] Room/Bed: Procedure: [id number] HOP D/TOES 2 + VIEWS LT - HOPD Exam Date: 08/26/19 Exam Time: 2039 REPORT STATUS: Signed TOES 2 + VIEWS LT - HOPD - 3 views HISTORY: Pain COMPARISON: None avail able. FINDINGS: Bones: No acute displaced fracture. Osseous al ignment is within normal limits. Joints: No malalignment. Soft tissu es: Vascular calcifications. IMPRESSION: No acute radiographic abno rmality. Signed by: Dr. Yesenia Padilla MD on 08/26/2019 8:48 PM Dict ated By: YESENIA PADILLA MD 47 COPY TO: EULA NICOLE MD microalbumin/creatinine ratio, [id number] 07:58:00* Test Item Value Reference Range Interpretation Comments microalbumin/creatinine ratio, urine (test code = 51323-8) 3 742.4 MG/G CREAT 0.0-30.0 H [facility]microalbumin/total urine gmbsud0961-57-67 07:58:00* Test Item Value Reference Range Interpretation Comments microalbumin/total urine volume (test code = 21502-7) 3233.4 mg/L [facility] Hospitalcreatinine, random, [id number] 07:58:00* Test Item Value Reference Range Interpretation Comments creatinine, random, urine (test code = 2161-8) 86.4 mg/dL [facility] Hospitalhemoglobin A1C, blood, as % of total azrdovjjur8865-61-46 07:50:00* Test Item Value Reference Range Interpretation Comments hemoglobin A1C, blood, as % of total hemoglobin (test code = 4548-4) 9.5 % 4.8-5.6 H [facility] HospitalLDL cholesterol, rlixy1570-74-26 07:50:00* Test Item Value Reference Range Interpretation Comments LDL cholesterol, serum (test code = 2089-1) 107 mg/dL 0-99 H [facility] Hospitalvery low density kidgblxsmdse8128-20-24 07:50:00* Test Item Value Reference Range Interpretation Comments very low density lipoproteins (test code = 2091-7) 27 mg/dL 5-4 0 [facility] HospitalHDL cholesterol, emqxj7833-60-06 07:50:00* Test Item Value Reference Range Interpretation Comments HDL cholesterol, serum (test code = 2085-9) 82 mg/dL >39 [facility] Hospitaltriglyceride, serum, sthzjpq0777-26-37 07:50:00* Test Item Value Reference Range Interpretation Comments triglyceride, serum, fasting (test code = 2571-8) 137 mg/dL 0-14 9 [facility] Hospitalcholesterol, suzlo1146-67-16 07:50:00* Test Item Value Reference Range Interpretation Comments cholesterol, serum (test code = 2093-3) 216 mg/dL 100-199 H [facility] Hospitalalanine aminotransferase (SGPT), [id number] 07:50:00 * Test Item Value Reference Range Interpretation Comments alanine aminotransferase (SGPT), serum (test code = 1742-6) 62 1/L 0-44 H [facility] Hospitalaspartate aminotransferase (SGOT), [id number] 07:50:00* Test Item Value Reference Range Interpretation Comments aspartate aminotransferase (SGOT), serum (test code = 1920-8) 72 1/ L 0-40 H [facility] Hospitalalkaline phosphatase, krlte5878-50-88 07:50:00* Test Item Value Reference Range Interpretation Comments alkaline phosphatase, serum (test code = 1783-0) 378 1/L 39-11 7 H [facility] Hospitalbilirubin, serum, kyjen2740-38-55 07:50:00* Test Item Value Reference Range Interpretation Comments bilirubin, serum, total (test code = 1975-2) 0.4 mg/dL 0.0-1.2 [facility] Hospitalalbumin/globulin ratio, irnzq4043-26-83 07:50:00* Test Item Value Reference Range Interpretation Comments albumin/globulin ratio, serum (test code = 1759-0) 0.8 1.2 -2.2 L [facility] Healthglobulin, tuwou5655-13-32 07:50:00* Test Item Value Reference Range Interpretation Comments globulin, serum (test code = 2336-6) 4.0 1.5-4.5 [facility] Healthalbumin, wuhxb2883-59-82 07:50:00* Test Item Value Reference Range Interpretation Comments albumin, serum (test code = 1751-7) 3.0 g/dL 3.5-5.5 L [facility] Healthprotein, total, iayyb6624-84-98 07:50:00* Test Item Value Reference Range Interpretation Comments protein, total, serum (test code = 2885-2) 7.0 g/dL 6.0-8.5 [facility] Healthcalcium, ikobh3590-51-13 07:50:00* Test Item Value Reference Range Interpretation Comments calcium, serum (test code = 2000-8) 8.8 mg/dL 8.7-10.2 [facility] Hospitalcarbon dioxide, venous zyqdz6693-36-78 07:50:00* Test Item Value Reference Range Interpretation Comments carbon dioxide, venous blood (test code = 7-1) 21 mmol/L 20-2 9 [facility] Healthchloride, zbrow6799-35-67 07:50:00* Test Item Value Reference Range Interpretation Comments chloride, serum (test code = 2075-0) 103 mmol/L 96-106 [facility] Healthpotassium, rmcuf5913-90-08 07:50:00* Test Item Value Reference Range Interpretation Comments potassium, serum (test code = 2823-3) 4.5 mmol/L 3.5-5.2 [facility] Healthsodium, lvibt4367-02-64 07:50:00* Test Item Value Reference Range Interpretation Comments sodium, serum (test code = 2951-2) 140 mmol/L 134-144 [facility] Healthurea nitrogen/creatinine ratio, blwxn7832-25-27 07:50:00 * Test Item Value Reference Range Interpretation Comments urea nitrogen/creatinine ratio, serum (test code = 3097-3) 15 9-20 [facility] HealtheGFR if Llhwzwte7180-29-80 07:50:00* Test Item Value Reference Range Interpretation Comments eGFR if (test code = 03552-6) 60 mL/min/((173/100) .m2) >59 [facility] HospitalEstimated Glomerular Filtration Rate (calc)2019-01-25 07:50:00* Test Item Value Reference Range Interpretation Comments Estimated Glomerular Filtration Rate (calc) (test code = 67128-5) 52 mL/min/((173/100).m2) >59 [facility] Healthcreatinine, rwxqb0519-59-53 07:50:00* Test Item Value Reference Range Interpretation Comments creatinine, serum (test code = 2160-0) 1.51 mg/dL 0.76-1.27 H [facility] Hospitalurea nitrogen, gywtb1464-70-26 07:50:00* Test Item Value Reference Range Interpretation Comments urea nitrogen, blood (test code = 3094-0) 22 mg/dL 6-24 [facility], rvkqmr8899-68-50 07:50:00* Test Item Value Reference Range Interpretation Comments blood glucose, random (test code = 2339-0) 163 mg/dL 65-99 H [facility] Hospitalhepatitis B core antibody, kclnk2578-37-68 07:50:00* Test Item Value Reference Range Interpretation Comments hepatitis B core antibody, total (test code = 77) Negative Nega tive [facility] Hospitalhepatitis B surface bzuztsq5557-93-56 07:50:00* Test Item Value Reference Range Interpretation Comments hepatitis B surface antigen (test code = 79) Negative Negative [facility] Hospitalvitamin D 25-hydroxy, xilzo1910-52-58 07:50:00* Test Item Value Reference Range Interpretation Comments vitamin D 25-hydroxy, serum (test code = 53891-9) 11.9 ng/mL 30.0 -100.0 L [facility] Hospitalhepatitis B surface xdbxeycq3914-19-57 07:50:00* Test Item Value Reference Range Interpretation Comments hepatitis B surface antibody (test code = 78) Non Reactive [facility] Hospitalprostate specific ytpible8977-70-97 07:50:00* Test Item Value Reference Range Interpretation Comments prostate specific antigen (test code = 2857-1) 0.7 ng/mL 0.0-4.0 [facility] Hospitalblood glucose, ojvenr1710-05-74 12:46:55* Test Item Value Reference Range Interpretation Comments blood glucose, random (test code = 2339-0) 292 mg/dL [facility] Hospitalthyroid stimulating hormone, ryosc5132-90-65 09:11:00* Test Item Value Reference Range Interpretation Comments thyroid stimulating hormone, serum (test code = 3016-3) 3.01 0 u[iU]/mL 0.450-4.500 [facility] Hospitalhemoglobin A1C, blood, as % of total xmvthecpbp6733-82-93 09:11:00* Test Item Value Reference Range Interpretation Comments hemoglobin A1C, blood, as % of total hemoglobin (test code = 4548-4) 9.8 % 4.8-5.6 H [facility] Hospitalmicroalbumin/creatinine ratio, eslng6498-13-76 09:11:00* Test Item Value Reference Range Interpretation Comments microalbumin/creatinine ratio, urine (test code = 39730-3) 4 276.5 MG/G CREAT 0.0-30.0 H [facility] Hospitalmicroalbumin/total urine eqopsx6870-69-02 09:11:00* Test Item Value Reference Range Interpretation Comments microalbumin/total urine volume (test code = 48609-1) 3960.0 mg/L [facility] Hospitalcreatinine, random, uvxaj9541-44-62 09:11:00* Test Item Value Reference Range Interpretation Comments creatinine, random, urine (test code = 2161-8) 92.6 mg/dL [facility] HospitalLDL cholesterol, bkefp5266-77-35 09:11:00* Test Item Value Reference Range Interpretation Comments LDL cholesterol, serum (test code = 2089-1) 104 mg/dL 0-99 H [facility] Hospitalvery low density akjquhmqhdre4069-52-23 09:11:00* Test Item Value Reference Range Interpretation Comments very low density lipoproteins (test code = 2091-7) 27 mg/dL 5-4 0 [facility] HospitalHDL cholesterol, hxmgz9256-28-02 09:11:00* Test Item Value Reference Range Interpretation Comments HDL cholesterol, serum (test code = 2085-9) 76 mg/dL >39 [facility] Hospitaltriglyceride, serum, mnnwcae0164-89-52 09:11:00* Test Item Value Reference Range Interpretation Comments triglyceride, serum, fasting (test code = 2571-8) 137 mg/dL 0-14 9 [facility] Hospitalcholesterol, rrjxg9719-31-53 09:11:00* Test Item Value Reference Range Interpretation Comments cholesterol, serum (test code = 2093-3) 207 mg/dL 100-199 H [facility] Hospitalalanine aminotransferase (SGPT), juhfu3663-45-52 09:11:00 * Test Item Value Reference Range Interpretation Comments alanine aminotransferase (SGPT), serum (test code = 1742-6) 81 1/L 0-44 H [facility] Hospitalaspartate aminotransferase (SGOT), gwsay6973-46-95 09:11:00* Test Item Value Reference Range Interpretation Comments aspartate aminotransferase (SGOT), serum (test code = 1920-8) 62 1/ L 0-40 H [facility] Hospitalalkaline phosphatase, mcjxb3703-06-41 09:11:00* Test Item Value Reference Range Interpretation Comments alkaline phosphatase, serum (test code = 1783-0) 305 1/L 39-11 7 H [facility] Hospitalbilirubin, serum, [id number] 09:11:00* Test Item Value Reference Range Interpretation Comments bilirubin, serum, total (test code = 1975-2) 0.4 mg/dL 0.0-1.2 [facility] Healthalbumin/globulin ratio, alwaw9135-86-69 09:11:00* Test Item Value Reference Range Interpretation Comments albumin/globulin ratio, serum (test code = 1759-0) 1.0 1.2 -2.2 L [facility] Healthglobulin, [id number] 09:11:00* Test Item Value Reference Range Interpretation Comments globulin, serum (test code = 2336-6) 3.7 1.5-4.5 [facility] Healthalbumin, nwleh6594-65-86 09:11:00* Test Item Value Reference Range Interpretation Comments albumin, serum (test code = 1751-7) 3.6 g/dL 3.5-5.5 [facility] Hospitalprotein, total, mqnum4749-41-98 09:11:00* Test Item Value Reference Range Interpretation Comments protein, total, serum (test code = 2885-2) 7.3 g/dL 6.0-8.5 [facility] Hospitalcalcium, fyrzl1859-47-70 09:11:00* Test Item Value Reference Range Interpretation Comments calcium, serum (test code = 2000-8) 9.1 mg/dL 8.7-10.2 [facility] Hospitalcarbon dioxide, venous pvpak1282-84-03 09:11:00* Test Item Value Reference Range Interpretation Comments carbon dioxide, venous blood (test code = 7-1) 22 mmol/L 20-2 9 [facility] Healthchloride, rkmdd9586-75-51 09:11:00* Test Item Value Reference Range Interpretation Comments chloride, serum (test code = 2075-0) 100 mmol/L 96-106 [facility] Healthpotassium, tqvtg1144-23-01 09:11:00* Test Item Value Reference Range Interpretation Comments potassium, serum (test code = 2823-3) 4.8 mmol/L 3.5-5.2 [facility] Hospitalsodium, fpzhn5224-14-03 09:11:00* Test Item Value Reference Range Interpretation Comments sodium, serum (test code = 2951-2) 138 mmol/L 134-144 [facility] Hospitalurea nitrogen/creatinine ratio, vhuht4749-00-40 09:11:00 * Test Item Value Reference Range Interpretation Comments urea nitrogen/creatinine ratio, serum (test code = 3097-3) 14 9-20 [facility] HealtheGFR if Ccgunuja6044-32-84 09:11:00* Test Item Value Reference Range Interpretation Comments eGFR if (test code = 76228-5) 99 mL/min/((173/100) .m2) >59 [facility] HospitalEstimated Glomerular Filtration Rate (calc)2018-08-22 09:11:00* Test Item Value Reference Range Interpretation Comments Estimated Glomerular Filtration Rate (calc) (test code = 67073-4) 86 mL/min/((173/100).m2) >59 [facility] Hospitalcreatinine, tqvyi0867-27-08 09:11:00* Test Item Value Reference Range Interpretation Comments creatinine, serum (test code = 2160-0) 1.00 mg/dL 0.76-1.27 [facility] Hospitalurea nitrogen, yixjj1028-18-29 09:11:00* Test Item Value Reference Range Interpretation Comments urea nitrogen, blood (test code = 3094-0) 14 mg/dL 6-24 [facility] Hospitalblood glucose, quqfeq8871-00-49 09:11:00* Test Item Value Reference Range Interpretation Comments blood glucose, random (test code = 2339-0) 241 mg/dL 65-99 H [facility] Hospitalimmature granulocytes, percentage of total cells, blood 2018-08-22 09:11:00* Test Item Value Reference Range Interpretation Comments immature granulocytes, percentage of total cells, bloo d (test code = 10567-3) 0 % [facility] Hospitalbasophil count, oavmokol4928-69-67 09:11:00* Test Item Value Reference Range Interpretation Comments basophil count, absolute (test code = 02990-4) 0.0 x10E3/uL 0.0-0.2 [facility] HospitalEosinophil Absolute Irwab5813-93-51 09:11:00* Test Item Value Reference Range Interpretation Comments Eosinophil Absolute Count (test code = 57719-5) 0.3 X10E3/UL 0.0-0. 4 [facility] Hospitalmonocyte count, blood, jiwsmjukd4880-73-24 09:11:00* Test Item Value Reference Range Interpretation Comments monocyte count, blood, automated (test code = 742-7) 0.9 X10E3/UL 0 .1-0.9 [facility] Hospitallymphocyte count, blood, fahvxejgk1913-34-13 09:11:00* Test Item Value Reference Range Interpretation Comments lymphocyte count, blood, automated (test code = 731-0) 2.0 X10E3/UL 0.7-3.1 [facility] HospitalAbsolute Tfocuoyukkr7708-34-92 09:11:00* Test Item Value Reference Range Interpretation Comments Absolute Neutrophils (test code = 51895-8) 5.0 X10E3/UL 1.4-7.0 [facility] Hospitalbasophils as percent of blood bfmxloxypz9854-86-61 09:11:00* Test Item Value Reference Range Interpretation Comments basophils as percent of blood leukocytes (test code = 707-0) 0 % [facility] Hospitaleosinophils as percent of blood hvokgpbugx9282-42-78 09:11:00* Test Item Value Reference Range Interpretation Comments eosinophils as percent of blood leukocytes (test code = 713-8) 4 % [facility] Hospitalmonocytes as percent of blood ttzweiixdg4056-16-81 09:11:00* Test Item Value Reference Range Interpretation Comments monocytes as percent of blood leukocytes (test code = 5905-5) 10 % [facility] Hospitallymphocytes as percent of blood rjtnqqpvjr4693-78-13 09:11:00* Test Item Value Reference Range Interpretation Comments lymphocytes as percent of blood leukocytes (test code = 736-9) 24 % [facility] Hospitalneutrophils as percent of blood sigckibfbl5203-02-86 09:11:00* Test Item Value Reference Range Interpretation Comments neutrophils as percent of blood leukocytes (test code = 770-8) 62 % [facility] Hospitalplatelet awrrm7399-52-62 09:11:00* Test Item Value Reference Range Interpretation Comments platelet count (test code = 777-3) 291 X10E3/UL 150-379 [facility] blood cell distribution kieth1005-50-07 09:11:00* Test Item Value Reference Range Interpretation Comments red blood cell distribution width (test code = 788-0) 14.1 % 12.3-15.4 [facility] corpuscular hemoglobin concentration, EWH9846-02-22 09:11:00* Test Item Value Reference Range Interpretation Comments mean corpuscular hemoglobin concentration, RBC (test code = 786-4) 33.4 G/DL 31.5-35.7 [facility] corpuscular hemoglobin, [id number] 09:11:00* Test Item Value Reference Range Interpretation Comments mean corpuscular hemoglobin, RBC (test code = 785-6) 32.6 pg 2 6.6-33.0 [facility] corpuscular volume, SXP1952-24-02 09:11:00* Test Item Value Reference Range Interpretation Comments mean corpuscular volume, RBC (test code = 787-2) 98 fL 79-97 H [facility] Hospitalhematocrit, ugitj1675-94-64 09:11:00* Test Item Value Reference Range Interpretation Comments hematocrit, blood (test code = 4544-3) 38.0 % 37.5-51.0 [facility] Hospitalhemoglobin, khzgj5497-84-10 09:11:00* Test Item Value Reference Range Interpretation Comments hemoglobin, blood (test code = 718-7) 12.7 g/dL 13.0-17.7 L [facility] Hospitalerythrocyte (RBC) qqnec0135-37-11 09:11:00* Test Item Value Reference Range Interpretation Comments erythrocyte (RBC) count (test code = 789-8) 3.89 X10E6/UL 4.14-5.80 L [facility] Hospitalleukocyte count, rtrpt5636-35-70 09:11:00* Test Item Value Reference Range Interpretation Comments leukocyte count, blood (test code = 6690-2) 8.2 X10E3/UL 3.4-10.8 [facility] Hospitalhemoglobin A1C, blood, as % of total coxyzrqbsa6498-68-27 11:25:00* Test Item Value Reference Range Interpretation Comments hemoglobin A1C, blood, as % of total hemoglobin (test code = 4548-4) 9.6 % 4.8-5.6 H [facility] Hospitalblood glucose, mouqrmr7379-00-74 10:51:55* Test Item Value Reference Range Interpretation Comments blood glucose, fasting (test code = 7) 138 mg/dL [facility] Hospitalmicroalbumin/total urine nsdhlr5298-01-71 08:57:00* Test Item Value Reference Range Interpretation Comments microalbumin/total urine volume (test code = 92134-1) 2318.5 mg/L [facility] Hospitalcreatinine, random, ipvot9567-53-22 08:57:00* Test Item Value Reference Range Interpretation Comments creatinine, random, urine (test code = 2161-8) 76.6 mg/dL [facility] Hospitalhemoglobin A1C, blood, as % of total yatmjzpyue4827-29-54 08:56:00* Test Item Value Reference Range Interpretation Comments hemoglobin A1C, blood, as % of total hemoglobin (test code = 4548-4) 9.9 % 4.8-5.6 H [facility] Hospitalhemoglobin A1C, blood, as % of total zvsvdvvbbu4099-47-77 17:28:00* Test Item Value Reference Range Interpretation Comments hemoglobin A1C, blood, as % of total hemoglobin (test code = 4548-4) 10.3 % 4.8-5.6 H [facility] HospitalLDL cholesterol, emzkd5784-83-41 17:28:00* Test Item Value Reference Range Interpretation Comments LDL cholesterol, serum (test code = 2089-1) 127 mg/dL 0-99 H [facility] Hospitalvery low density mxepobfqdfty6736-44-35 17:28:00* Test Item Value Reference Range Interpretation Comments very low density lipoproteins (test code = 2091-7) 48 mg/dL 5-4 0 H [facility] HospitalHDL cholesterol, qyyyv3674-34-93 17:28:00* Test Item Value Reference Range Interpretation Comments HDL cholesterol, serum (test code = 2085-9) 57 mg/dL >39 [facility] Hospitaltriglyceride, serum, tcscagq7708-95-94 17:28:00* Test Item Value Reference Range Interpretation Comments triglyceride, serum, fasting (test code = 2571-8) 242 mg/dL 0-14 9 H [facility] Hospitalcholesterol, yynlg2812-77-90 17:28:00* Test Item Value Reference Range Interpretation Comments cholesterol, serum (test code = 2093-3) 232 mg/dL 100-199 H [facility] Hospitalalanine aminotransferase (SGPT), kxwro5238-43-87 17:28:00 * Test Item Value Reference Range Interpretation Comments alanine aminotransferase (SGPT), serum (test code = 1742-6) 76 1/L 0-44 H [facility] Hospitalaspartate aminotransferase (SGOT), nffxu1635-19-51 17:28:00* Test Item Value Reference Range Interpretation Comments aspartate aminotransferase (SGOT), serum (test code = 1920-8) 57 1/ L 0-40 H [facility] Hospitalalkaline phosphatase, oelnq8254-04-75 17:28:00* Test Item Value Reference Range Interpretation Comments alkaline phosphatase, serum (test code = 1783-0) 216 1/L 39-11 7 H [facility] Hospitalbilirubin, serum, rfqom8886-36-20 17:28:00* Test Item Value Reference Range Interpretation Comments bilirubin, serum, total (test code = 1975-2) 0.3 mg/dL 0.0-1.2 [facility] Hospitalalbumin/globulin ratio, mcbre1320-95-44 17:28:00* Test Item Value Reference Range Interpretation Comments albumin/globulin ratio, serum (test code = 1759-0) 1.0 1.2 -2.2 L [facility] Healthglobulin, vivsk2396-21-52 17:28:00* Test Item Value Reference Range Interpretation Comments globulin, serum (test code = 2336-6) 4.0 1.5-4.5 [facility] Healthalbumin, tqist9919-36-67 17:28:00* Test Item Value Reference Range Interpretation Comments albumin, serum (test code = 1751-7) 3.9 g/dL 3.5-5.5 [facility] Healthprotein, total, myudx0419-03-63 17:28:00* Test Item Value Reference Range Interpretation Comments protein, total, serum (test code = 2885-2) 7.9 g/dL 6.0-8.5 [facility] Healthcalcium, zuasj2680-91-18 17:28:00* Test Item Value Reference Range Interpretation Comments calcium, serum (test code = 2000-8) 9.5 mg/dL 8.7-10.2 [facility] Hospitalcarbon dioxide, venous fxmwt1002-70-59 17:28:00* Test Item Value Reference Range Interpretation Comments carbon dioxide, venous blood (test code = 2027-1) 26 mmol/L 18-2 9 [facility] Healthchloride, gvpgu7806-14-24 17:28:00* Test Item Value Reference Range Interpretation Comments chloride, serum (test code = 2075-0) 96 mmol/L 96-106 [facility] Hospitalpotassium, bqoha8850-94-09 17:28:00* Test Item Value Reference Range Interpretation Comments potassium, serum (test code = 2823-3) 4.3 mmol/L 3.5-5.2 [facility] Healthsodium, hlcqw3302-60-66 17:28:00* Test Item Value Reference Range Interpretation Comments sodium, serum (test code = 2951-2) 137 mmol/L 134-144 [facility] Hospitalurea nitrogen/creatinine ratio, gjpys2842-75-21 17:28:00 * Test Item Value Reference Range Interpretation Comments urea nitrogen/creatinine ratio, serum (test code = 3097-3) 16 9-20 [facility] HealtheGFR if Pfwmlgrb5304-34-13 17:28:00* Test Item Value Reference Range Interpretation Comments eGFR if (test code = 36820-2) 82 mL/min/((173/100) .m2) >59 [facility] HospitalEstimated Glomerular Filtration Rate (calc)2018-01-11 17:28:00* Test Item Value Reference Range Interpretation Comments Estimated Glomerular Filtration Rate (calc) (test code = 56020-2) 71 mL/min/((173/100).m2) >59 [facility] Hospitalcreatinine, ruqex0640-80-16 17:28:00* Test Item Value Reference Range Interpretation Comments creatinine, serum (test code = 2160-0) 1.17 mg/dL 0.76-1.27 [facility] Hospitalurea nitrogen, syynj8588-30-50 17:28:00* Test Item Value Reference Range Interpretation Comments urea nitrogen, blood (test code = 3094-0) 19 mg/dL 6-24 [facility] Hospitalblood glucose, eeepgy3286-68-82 17:28:00* Test Item Value Reference Range Interpretation Comments blood glucose, random (test code = 2339-0) 203 mg/dL 65-99 [facility] glucose, ookaid4392-47-07 15:20:44* Test Item Value Reference Range Interpretation Comments blood glucose, random (test code = 2339-0) 171 mg/dL [facility] Hospitalvitamin D 25-hydroxy, natlc9311-61-95 09:28:00* Test Item Value Reference Range Interpretation Comments vitamin D 25-hydroxy, serum (test code = 15043-8) 25.3 ng/mL 30.0 -100.0 L [facility] Hospitalthyroid stimulating hormone, exkbi1369-23-49 09:28:00* Test Item Value Reference Range Interpretation Comments thyroid stimulating hormone, serum (test code = 3016-3) 1.88 0 u[iU]/mL 0.450-4.500 [facility]hem[facility]C, blood, as % of total lewaroyhmx1065-52-97 09:28:00* Test Item Value Reference Range Interpretation Comments hemoglobin A1C, blood, as % of total hemoglobin (test code = 4548-4) 14.8 % 4.8-5.6 H [facility] Hospitalprostate specific cisnane9667-45-77 09:28:00* Test Item Value Reference Range Interpretation Comments prostate specific antigen (test code = 2857-1) 0.8 ng/mL 0.0-4.0 [facility] HospitalLDL cholesterol, [id number] 09:28:00* Test Item Value Reference Range Interpretation Comments LDL cholesterol, serum (test code = 2089-1) 120 mg/dL 0-99 [facility] Hospitalvery low density mbtksnidwexj5410-96-85 09:28:00* Test Item Value Reference Range Interpretation Comments very low density lipoproteins (test code = 2091-7) 51 mg/dL 5-4 0 H [facility] HospitalHDL cholesterol, ycirh2952-82-52 09:28:00* Test Item Value Reference Range Interpretation Comments HDL cholesterol, serum (test code = 2085-9) 42 mg/dL >39 [facility] Hospitaltriglyceride, serum, uvcaoqd7841-32-17 09:28:00* Test Item Value Reference Range Interpretation Comments triglyceride, serum, fasting (test code = 2571-8) 253 mg/dL 0-14 9 [facility] Hospitalcholesterol, [id number] 09:28:00* Test Item Value Reference Range Interpretation Comments cholesterol, serum (test code = 2093-3) 213 mg/dL 100-199 [facility] Hospitalalanine aminotransferase (SGPT), vkmxe7758-50-83 09:28:00 * Test Item Value Reference Range Interpretation Comments alanine aminotransferase (SGPT), serum (test code = 1742-6) 44 1/L 0-44 [facility] Hospitalaspartate aminotransferase (SGOT), rnanb9446-66-81 09:28:00* Test Item Value Reference Range Interpretation Comments aspartate aminotransferase (SGOT), serum (test code = 1920-8) 35 1/ L 0-40 [facility] Hospitalalkaline phosphatase, [id number] 09:28:00* Test Item Value Reference Range Interpretation Comments alkaline phosphatase, serum (test code = 1783-0) 183 1/L 39-11 7 H [facility] Hospitalbilirubin, serum, [id number] 09:28:00* Test Item Value Reference Range Interpretation Comments bilirubin, serum, total (test code = 1975-2) 0.4 mg/dL 0.0-1.2 [facility] Hospitalalbumin/globulin ratio, pskga7453-97-46 09:28:00* Test Item Value Reference Range Interpretation Comments albumin/globulin ratio, serum (test code = 1759-0) 1.1 1.2 -2.2 L [facility] Healthglobulin, [id number] 09:28:00* Test Item Value Reference Range Interpretation Comments globulin, serum (test code = 2336-6) 3.8 1.5-4.5 [facility] Healthalbumin, [id number] 09:28:00* Test Item Value Reference Range Interpretation Comments albumin, serum (test code = 1751-7) 4.0 g/dL 3.5-5.5 [facility] Healthprotein, total, [id number] 09:28:00* Test Item Value Reference Range Interpretation Comments protein, total, serum (test code = 2885-2) 7.8 g/dL 6.0-8.5 [facility] Healthcalcium, jyaem6252-82-91 09:28:00* Test Item Value Reference Range Interpretation Comments calcium, serum (test code = 2000-8) 10.1 mg/dL 8.7-10.2 [facility] Hospitalcarbon dioxide, venous ryywn2410-64-56 09:28:00* Test Item Value Reference Range Interpretation Comments carbon dioxide, venous blood (test code = 2027-1) 24 mmol/L 18-2 9 [facility] Healthchloride, fmsau3196-29-55 09:28:00* Test Item Value Reference Range Interpretation Comments chloride, serum (test code = 2075-0) 96 mmol/L 96-106 [facility] Healthpotassium, osaln6813-65-08 09:28:00* Test Item Value Reference Range Interpretation Comments potassium, serum (test code = 2823-3) 5.2 mmol/L 3.5-5.2 [facility] Healthsodium, ttjpt7956-67-77 09:28:00* Test Item Value Reference Range Interpretation Comments sodium, serum (test code = 2951-2) 134 mmol/L 134-144 [facility] Healthurea nitrogen/creatinine ratio, smssf8574-74-70 09:28:00 * Test Item Value Reference Range Interpretation Comments urea nitrogen/creatinine ratio, serum (test code = 3097-3) 17 9-20 [facility] HealtheGFR if Bnsegppp0272-43-01 09:28:00* Test Item Value Reference Range Interpretation Comments eGFR if (test code = 42500-6) 75 mL/min/((173/100) .m2) >59 [facility] HospitalEstimated Glomerular Filtration Rate (calc)2017-08-16 09:28:00* Test Item Value Reference Range Interpretation Comments Estimated Glomerular Filtration Rate (calc) (test code = 81460-2) 65 mL/min/((173/100).m2) >59 [facility] Hospitalcreatinine, tkpjp6499-38-17 09:28:00* Test Item Value Reference Range Interpretation Comments creatinine, serum (test code = 2160-0) 1.27 mg/dL 0.76-1.27 [facility] Hospitalurea nitrogen, [id number] 09:28:00* Test Item Value Reference Range Interpretation Comments urea nitrogen, blood (test code = 3094-0) 21 mg/dL 6-24 [facility] Hospitalblood glucose, mcsozl2192-88-65 09:28:00* Test Item Value Reference Range Interpretation Comments blood glucose, random (test code = 2339-0) 242 mg/dL 65-99 H [facility] Hospitalimmature granulocytes, percentage of total cells, blood 2017-08-16 09:28:00* Test Item Value Reference Range Interpretation Comments immature granulocytes, percentage of total cells, bloo d (test code = 35404-8) 0 % [facility] Hospitalbasophil count, znduepks2259-20-49 09:28:00* Test Item Value Reference Range Interpretation Comments basophil count, absolute (test code = 11974-9) 0.0 x10E3/uL 0.0-0.2 [facility] HospitalEosinophil Absolute Rexsk0041-55-08 09:28:00* Test Item Value Reference Range Interpretation Comments Eosinophil Absolute Count (test code = 60000-1) 0.2 X10E3/UL 0.0-0. 4 [facility] Hospitalmonocyte count, blood, vamhutxol3993-50-46 09:28:00* Test Item Value Reference Range Interpretation Comments monocyte count, blood, automated (test code = 742-7) 0.6 X10E3/UL 0 .1-0.9 [facility] Hospitallymphocyte count, blood, iahbmzlwx7316-54-46 09:28:00* Test Item Value Reference Range Interpretation Comments lymphocyte count, blood, automated (test code = 731-0) 2.6 X10E3/UL 0.7-3.1 [facility] HospitalAbsolute Xgexohgjpsw9413-78-59 09:28:00* Test Item Value Reference Range Interpretation Comments Absolute Neutrophils (test code = 50799-4) 6.4 X10E3/UL 1.4-7.0 [facility] Hospitalbasophils as percent of blood htosdcupcd0629-94-47 09:28:00* Test Item Value Reference Range Interpretation Comments basophils as percent of blood leukocytes (test code = 707-0) 0 % [facility] Hospitaleosinophils as percent of blood ijcxyqzuag4813-02-54 09:28:00* Test Item Value Reference Range Interpretation Comments eosinophils as percent of blood leukocytes (test code = 713-8) 2 % [facility] Hospitalmonocytes as percent of blood qlprsmokrf9470-32-06 09:28:00* Test Item Value Reference Range Interpretation Comments monocytes as percent of blood leukocytes (test code = 5905-5) 7 % [facility] Hospitallymphocytes as percent of blood ziqtqkownq1809-80-48 09:28:00* Test Item Value Reference Range Interpretation Comments lymphocytes as percent of blood leukocytes (test code = 736-9) 26 % [facility] Hospitalneutrophils as percent of blood sqbdcxzkdf9808-58-92 09:28:00* Test Item Value Reference Range Interpretation Comments neutrophils as percent of blood leukocytes (test code = 770-8) 65 % [facility] Hospitalplatelet swkdw2096-29-67 09:28:00* Test Item Value Reference Range Interpretation Comments platelet count (test code = 777-3) 296 X10E3/UL 150-379 [facility] Hospitalred blood cell distribution jukzm7586-57-83 09:28:00* Test Item Value Reference Range Interpretation Comments red blood cell distribution width (test code = 788-0) 13.4 % 12.3-15.4 [facility] corpuscular hemoglobin concentration, [id number] 09:28:00* Test Item Value Reference Range Interpretation Comments mean corpuscular hemoglobin concentration, RBC (test code = 786-4) 33.5 G/DL 31.5-35.7 [facility] hemoglobin, [id number] 09:28:00* Test Item Value Reference Range Interpretation Comments mean corpuscular hemoglobin, RBC (test code = 785-6) 32.3 pg 2 6.6-33.0 [facility] Hospitalmean corpuscular volume, EYO3488-55-11 09:28:00* Test Item Value Reference Range Interpretation Comments mean corpuscular volume, RBC (test code = 787-2) 96 fL 79-97 [facility] Hospitalhematocrit, ghqik0842-35-91 09:28:00* Test Item Value Reference Range Interpretation Comments hematocrit, blood (test code = 4544-3) 42.1 % 37.5-51.0 [facility] Hospitalhemoglobin, cvbaq0454-45-68 09:28:00* Test Item Value Reference Range Interpretation Comments hemoglobin, blood (test code = 718-7) 14.1 g/dL 12.6-17.7 [facility] Hospitalerythrocyte (RBC) udgxr2620-04-61 09:28:00* Test Item Value Reference Range Interpretation Comments erythrocyte (RBC) count (test code = 789-8) 4.37 X10E6/UL 4.14-5.80 [facility] Hospitalleukocyte count, mbhnw9653-24-86 09:28:00* Test Item Value Reference Range Interpretation Comments leukocyte count, blood (test code = 6690-2) 9.8 X10E3/UL 3.4-10.8 [facility] Hospitalmicroalbumin/total urine nnoyfh2182-82-59 09:27:00* Test Item Value Reference Range Interpretation Comments microalbumin/total urine volume (test code = 23399-3) 16.6 mg/L [facility] Hospitalcreatinine, random, kepyk9493-25-40 09:27:00* Test Item Value Reference Range Interpretation Comments creatinine, random, urine (test code = 2161-8) 78.8 mg/dL [facility] Hospitalblood glucose, nxrmip5300-26-70 09:49:20* Test Item Value Reference Range Interpretation Comments blood glucose, random (test code = 2339-0) 285 mg/dL [facility] Hospitalhemoglobin A1C, blood, as % of total jfvhmdbbxw7592-87-13 09:57:00* Test Item Value Reference Range Interpretation Comments hemoglobin A1C, blood, as % of total hemoglobin (test code = 4548-4) 10.3 % 4.8-5.6 H [facility] HospitalLDL cholesterol, szygz9897-74-40 09:57:00* Test Item Value Reference Range Interpretation Comments LDL cholesterol, serum (test code = 2089-1) 139 mg/dL 0-99 H [facility] Hospitalvery low density nozvmvwevnjj6406-98-76 09:57:00* Test Item Value Reference Range Interpretation Comments very low density lipoproteins (test code = 2091-7) 28 mg/dL 5-4 0 [facility] HospitalHDL cholesterol, qandq7154-56-34 09:57:00* Test Item Value Reference Range Interpretation Comments HDL cholesterol, serum (test code = 2085-9) 51 mg/dL >39 [facility] Hospitaltriglyceride, serum, vzxpqgd5593-61-11 09:57:00* Test Item Value Reference Range Interpretation Comments triglyceride, serum, fasting (test code = 2571-8) 142 mg/dL 0-14 9 [facility] Hospitalcholesterol, lgcvb0776-54-99 09:57:00* Test Item Value Reference Range Interpretation Comments cholesterol, serum (test code = 2093-3) 218 mg/dL 100-199 H [facility] Hospitalalanine aminotransferase (SGPT), jxqux6595-36-42 09:57:00 * Test Item Value Reference Range Interpretation Comments alanine aminotransferase (SGPT), serum (test code = 1742-6) 52 1/L 0-44 H [facility] Hospitalaspartate aminotransferase (SGOT), rfgzy7137-58-93 09:57:00* Test Item Value Reference Range Interpretation Comments aspartate aminotransferase (SGOT), serum (test code = 1920-8) 50 1/ L 0-40 H [facility] Hospitalalkaline phosphatase, qvvcj5632-71-98 09:57:00* Test Item Value Reference Range Interpretation Comments alkaline phosphatase, serum (test code = 1783-0) 198 1/L 39-11 7 H [facility] Hospitalbilirubin, serum, iekwk9435-50-25 09:57:00* Test Item Value Reference Range Interpretation Comments bilirubin, serum, total (test code = 1975-2) 0.5 mg/dL 0.0-1.2 [facility]albumin/globulin ratio, cztgp9858-55-91 09:57:00* Test Item Value Reference Range Interpretation Comments albumin/globulin ratio, serum (test code = 1759-0) 0.9 1.1 -2.5 L [facility] Healthglobulin, lngzb1282-17-32 09:57:00* Test Item Value Reference Range Interpretation Comments globulin, serum (test code = 2336-6) 4.2 1.5-4.5 [facility] Healthalbumin, [id number] 09:57:00* Test Item Value Reference Range Interpretation Comments albumin, serum (test code = 1751-7) 3.9 g/dL 3.5-5.5 [facility] Healthprotein, total, ipetr9897-96-15 09:57:00* Test Item Value Reference Range Interpretation Comments protein, total, serum (test code = 2885-2) 8.1 g/dL 6.0-8.5 [facility] Hospitalcalcium, wkhdu5350-93-34 09:57:00* Test Item Value Reference Range Interpretation Comments calcium, serum (test code = 2000-8) 9.8 mg/dL 8.7-10.2 [facility] Hospitalcarbon dioxide, venous okhnz8698-77-84 09:57:00* Test Item Value Reference Range Interpretation Comments carbon dioxide, venous blood (test code = 2027-1) 24 mmol/L 18-2 9 [facility] Hospitalchloride, bmvpg0001-52-63 09:57:00* Test Item Value Reference Range Interpretation Comments chloride, serum (test code = 2075-0) 100 mmol/L 96-106 [facility] Healthpotassium, xgdng5130-84-99 09:57:00* Test Item Value Reference Range Interpretation Comments potassium, serum (test code = 2823-3) 5.2 mmol/L 3.5-5.2 [facility] Healthsodium, oummo5717-24-85 09:57:00* Test Item Value Reference Range Interpretation Comments sodium, serum (test code = 2951-2) 139 mmol/L 134-144 [facility] Hospitalurea nitrogen/creatinine ratio, lthft9546-73-97 09:57:00 * Test Item Value Reference Range Interpretation Comments urea nitrogen/creatinine ratio, serum (test code = 3097-3) 17 9-20 [facility] HealtheGFR if Vuevsxuv6549-58-24 09:57:00* Test Item Value Reference Range Interpretation Comments eGFR if (test code = 48616-9) 105 mL/min/((173/100 ).m2) >59 [facility] HospitalEstimated Glomerular Filtration Rate (calc)2016-12-07 09:57:00* Test Item Value Reference Range Interpretation Comments Estimated Glomerular Filtration Rate (calc) (test code = 23207-2) 91 mL/min/((173/100).m2) >59 [facility] Hospitalcreatinine, satqu0384-15-51 09:57:00* Test Item Value Reference Range Interpretation Comments creatinine, serum (test code = 2160-0) 0.96 mg/dL 0.76-1.27 [facility] Hospitalurea nitrogen, ylcnx7069-15-18 09:57:00* Test Item Value Reference Range Interpretation Comments urea nitrogen, blood (test code = 3094-0) 16 mg/dL 6-24 [facility] Hospitalblood glucose, ezfvqn1559-16-69 09:57:00* Test Item Value Reference Range Interpretation Comments blood glucose, random (test code = 2339-0) 172 mg/dL 65-99 [facility] glucose, apfmyp3856-48-34 08:30:17* Test Item Value Reference Range Interpretation Comments blood glucose, random (test code = 2339-0) 252 mg/dL [facility] Hospitalthyroid stimulating hormone, hjyid8567-46-53 08:11:00* Test Item Value Reference Range Interpretation Comments thyroid stimulating hormone, serum (test code = 3016-3) 2.92 0 u[iU]/mL 0.450-4.500 [facility] Hospitalvitamin D 25-hydroxy, mdjos6334-45-98 08:11:00* Test Item Value Reference Range Interpretation Comments vitamin D 25-hydroxy, serum (test code = 46395-2) 31.4 ng/mL 30.0 -100.0 [facility] Hospitalhemoglobin A1C, blood, as % of total eicaimsidq1575-75-81 08:11:00* Test Item Value Reference Range Interpretation Comments hemoglobin A1C, blood, as % of total hemoglobin (test code = 4548-4) 8.3 % 4.8-5.6 H [facility] HospitalLDL cholesterol, icjjz3618-20-26 08:11:00* Test Item Value Reference Range Interpretation Comments LDL cholesterol, serum (test code = 2089-1) 101 mg/dL 0-99 H [facility] Hospitalvery low density nmlsqbobvzzz0982-72-45 08:11:00* Test Item Value Reference Range Interpretation Comments very low density lipoproteins (test code = 2091-7) 40 mg/dL 5-4 0 [facility] HospitalHDL cholesterol, dgqip0658-98-84 08:11:00* Test Item Value Reference Range Interpretation Comments HDL cholesterol, serum (test code = 2085-9) 42 mg/dL >39 [facility] Hospitaltriglyceride, serum, sfroodo2887-56-41 08:11:00* Test Item Value Reference Range Interpretation Comments triglyceride, serum, fasting (test code = 2571-8) 201 mg/dL 0-14 9 H [facility] Hospitalcholesterol, czcft9597-94-45 08:11:00* Test Item Value Reference Range Interpretation Comments cholesterol, serum (test code = 2093-3) 183 mg/dL 100-199 [facility] Hospitalalanine aminotransferase (SGPT), piiqt0486-97-39 08:11:00 * Test Item Value Reference Range Interpretation Comments alanine aminotransferase (SGPT), serum (test code = 1742-6) 53 1/L 0-44 H [facility] Hospitalaspartate aminotransferase (SGOT), noiar6033-44-36 08:11:00* Test Item Value Reference Range Interpretation Comments aspartate aminotransferase (SGOT), serum (test code = 1920-8) 43 1/ L 0-40 H [facility] Hospitalalkaline phosphatase, pfnbt1857-17-74 08:11:00* Test Item Value Reference Range Interpretation Comments alkaline phosphatase, serum (test code = 1783-0) 138 1/L 39-11 7 H [facility] Hospitalbilirubin, serum, augyp1898-70-66 08:11:00* Test Item Value Reference Range Interpretation Comments bilirubin, serum, total (test code = 1975-2) 0.3 mg/dL 0.0-1.2 [facility] Hospitalalbumin/globulin ratio, [id number] 08:11:00* Test Item Value Reference Range Interpretation Comments albumin/globulin ratio, serum (test code = 1759-0) 1.0 1.1 -2.5 L [facility] Healthglobulin, [id number] 08:11:00* Test Item Value Reference Range Interpretation Comments globulin, serum (test code = 2336-6) 3.8 1.5-4.5 [facility] Healthalbumin, lfpra5150-11-23 08:11:00* Test Item Value Reference Range Interpretation Comments albumin, serum (test code = 1751-7) 3.8 g/dL 3.5-5.5 [facility] Healthprotein, total, bkpvd8900-62-07 08:11:00* Test Item Value Reference Range Interpretation Comments protein, total, serum (test code = 2885-2) 7.6 g/dL 6.0-8.5 [facility] Healthcalcium, cwexy1006-45-59 08:11:00* Test Item Value Reference Range Interpretation Comments calcium, serum (test code = 2000-8) 9.6 mg/dL 8.7-10.2 [facility] Hospitalcarbon dioxide, venous nznlz4795-12-24 08:11:00* Test Item Value Reference Range Interpretation Comments carbon dioxide, venous blood (test code = 2027-1) 24 mmol/L 18-2 9 [facility] Healthchloride, docac7756-89-66 08:11:00* Test Item Value Reference Range Interpretation Comments chloride, serum (test code = 2075-0) 101 mmol/L 97-106 [facility] Healthpotassium, ynbrh9857-26-69 08:11:00* Test Item Value Reference Range Interpretation Comments potassium, serum (test code = 2823-3) 5.1 mmol/L 3.5-5.2 [facility] Healthsodium, hyxgj4380-60-96 08:11:00* Test Item Value Reference Range Interpretation Comments sodium, serum (test code = 2951-2) 139 mmol/L 136-144 [facility] Healthurea nitrogen/creatinine ratio, khrgf3077-40-19 08:11:00 * Test Item Value Reference Range Interpretation Comments urea nitrogen/creatinine ratio, serum (test code = 3097-3) 18 9-20 [facility] HealtheGFR if Yrvmevpt0954-76-23 08:11:00* Test Item Value Reference Range Interpretation Comments eGFR if (test code = 32724-0) 84 mL/min/((173/100) .m2) >59 [facility] HospitalEstimated Glomerular Filtration Rate (calc)2016-08-24 08:11:00* Test Item Value Reference Range Interpretation Comments Estimated Glomerular Filtration Rate (calc) (test code = 30995-1) 73 mL/min/((173/100).m2) >59 [facility] Hospitalcreatinine, fbosn4854-11-12 08:11:00* Test Item Value Reference Range Interpretation Comments creatinine, serum (test code = 2160-0) 1.16 mg/dL 0.76-1.27 [facility] Hospitalurea nitrogen, qsazq2213-41-27 08:11:00* Test Item Value Reference Range Interpretation Comments urea nitrogen, blood (test code = 3094-0) 21 mg/dL 6-24 [facility] Hospitalblood glucose, mgotic5912-37-96 08:11:00* Test Item Value Reference Range Interpretation Comments blood glucose, random (test code = 2339-0) 214 mg/dL 65-99 [facility], ycwvoi7566-67-44 08:28:37* Test Item Value Reference Range Interpretation Comments blood glucose, random (test code = 2339-0) 127 mg/dL [facility] Hospitalhemoglobin A1C, blood, as % of total czdqzcvbtl9869-37-13 08:24:00* Test Item Value Reference Range Interpretation Comments hemoglobin A1C, blood, as % of total hemoglobin (test code = 4548-4) 7.8 % 4.8-5.6 H [facility] HospitalLDL cholesterol, gppiq0094-19-37 08:24:00* Test Item Value Reference Range Interpretation Comments LDL cholesterol, serum (test code = 2089-1) 106 mg/dL 0-99 H [facility] Hospitalvery low density jkqppclfqfbd7144-66-63 08:24:00* Test Item Value Reference Range Interpretation Comments very low density lipoproteins (test code = 2091-7) 23 mg/dL 5-4 0 [facility] HospitalHDL cholesterol, fltkq6306-08-72 08:24:00* Test Item Value Reference Range Interpretation Comments HDL cholesterol, serum (test code = 2085-9) 43 mg/dL >39 [facility] Hospitaltriglyceride, serum, lgejydv1367-69-46 08:24:00* Test Item Value Reference Range Interpretation Comments triglyceride, serum, fasting (test code = 2571-8) 116 mg/dL 0-14 9 [facility] Hospitalcholesterol, worcf7872-20-25 08:24:00* Test Item Value Reference Range Interpretation Comments cholesterol, serum (test code = 2093-3) 172 mg/dL 100-199 [facility] Hospitalalanine aminotransferase (SGPT), vgsso8742-71-81 08:24:00 * Test Item Value Reference Range Interpretation Comments alanine aminotransferase (SGPT), serum (test code = 1742-6) 44 1/L 0-44 [facility] Hospitalaspartate aminotransferase (SGOT), bnrhq9840-00-77 08:24:00* Test Item Value Reference Range Interpretation Comments aspartate aminotransferase (SGOT), serum (test code = 1920-8) 38 1/ L 0-40 [facility] Hospitalalkaline phosphatase, kiyhg0360-99-29 08:24:00* Test Item Value Reference Range Interpretation Comments alkaline phosphatase, serum (test code = 1783-0) 108 1/L 39-11 7 [facility] Hospitalbilirubin, serum, gditc2152-00-02 08:24:00* Test Item Value Reference Range Interpretation Comments bilirubin, serum, total (test code = 1975-2) 0.3 mg/dL 0.0-1.2 [facility] Hospitalalbumin/globulin ratio, naoql4845-69-43 08:24:00* Test Item Value Reference Range Interpretation Comments albumin/globulin ratio, serum (test code = 1759-0) 1.1 1.1 -2.5 [facility] Healthglobulin, gwazy4152-48-03 08:24:00* Test Item Value Reference Range Interpretation Comments globulin, serum (test code = 2336-6) 3.5 1.5-4.5 [facility] Healthalbumin, bjpje2047-74-08 08:24:00* Test Item Value Reference Range Interpretation Comments albumin, serum (test code = 1751-7) 3.9 g/dL 3.5-5.5 [facility] Hospitalprotein, total, tglpz5706-32-75 08:24:00* Test Item Value Reference Range Interpretation Comments protein, total, serum (test code = 2885-2) 7.4 g/dL 6.0-8.5 [facility] Healthcalcium, [id number] 08:24:00* Test Item Value Reference Range Interpretation Comments calcium, serum (test code = 2000-8) 9.2 mg/dL 8.7-10.2 [facility] Hospitalcarbon dioxide, venous vhgqz4623-45-66 08:24:00* Test Item Value Reference Range Interpretation Comments carbon dioxide, venous blood (test code = 2027-1) 20 mmol/L 18-2 9 [facility] Healthchloride, iaykr3355-51-41 08:24:00* Test Item Value Reference Range Interpretation Comments chloride, serum (test code = 2075-0) 100 mmol/L 97-108 [facility] Healthpotassium, gwbqx5934-80-13 08:24:00* Test Item Value Reference Range Interpretation Comments potassium, serum (test code = 2823-3) 4.2 mmol/L 3.5-5.2 [facility] Hospitalsodium, wcipl3249-79-57 08:24:00* Test Item Value Reference Range Interpretation Comments sodium, serum (test code = 2951-2) 138 mmol/L 134-144 [facility] Hospitalurea nitrogen/creatinine ratio, ahexm3593-63-61 08:24:00 * Test Item Value Reference Range Interpretation Comments urea nitrogen/creatinine ratio, serum (test code = 3097-3) 21 9-20 [facility] HealtheGFR if Fvuwvihp5203-98-75 08:24:00* Test Item Value Reference Range Interpretation Comments eGFR if (test code = 51355-3) 103 mL/min/((173/100 ).m2) >59 [facility] HospitalEstimated Glomerular Filtration Rate (calc)2016-05-12 08:24:00* Test Item Value Reference Range Interpretation Comments Estimated Glomerular Filtration Rate (calc) (test code = 88708-0) 89 mL/min/((173/100).m2) >59 [facility] Hospitalcreatinine, [id number] 08:24:00* Test Item Value Reference Range Interpretation Comments creatinine, serum (test code = 2160-0) 0.98 mg/dL 0.76-1.27 [facility] Hospitalurea nitrogen, tmvgy8324-07-52 08:24:00* Test Item Value Reference Range Interpretation Comments urea nitrogen, blood (test code = 3094-0) 21 mg/dL 6-24 [facility]blood glucose, gyzdmk6611-84-77 08:24:00* Test Item Value Reference Range Interpretation Comments blood glucose, random (test code = 2339-0) 165 mg/dL 65-99 H [facility] Hospitalimmature granulocytes, percentage of total cells, blood 2016-05-12 08:24:00* Test Item Value Reference Range Interpretation Comments immature granulocytes, percentage of total cells, bloo d (test code = 48222-3) 0 % [facility] Hospitalbasophil count, jrqezeyt9555-72-19 08:24:00* Test Item Value Reference Range Interpretation Comments basophil count, absolute (test code = 79844-1) 0.0 x10E3/uL 0.0-0.2 [facility] HospitalEosinophil Absolute Kuccn1478-19-47 08:24:00* Test Item Value Reference Range Interpretation Comments Eosinophil Absolute Count (test code = 34878-2) 0.5 X10E3/UL 0.0-0. 4 H [facility] Hospitalmonocyte count, blood, rjeoaqzjo9565-97-30 08:24:00* Test Item Value Reference Range Interpretation Comments monocyte count, blood, automated (test code = 742-7) 0.7 X10E3/UL 0 .1-0.9 [facility] Hospitallymphocyte count, blood, cujpcecde5043-29-59 08:24:00* Test Item Value Reference Range Interpretation Comments lymphocyte count, blood, automated (test code = 731-0) 2.6 X10E3/UL 0.7-3.1 [facility] HospitalAbsolute Wcfzkohjbwx9739-01-64 08:24:00* Test Item Value Reference Range Interpretation Comments Absolute Neutrophils (test code = 12171-7) 5.4 X10E3/UL 1.4-7.0 [facility] Hospitalbasophils as percent of blood itohcgyqwg1400-64-91 08:24:00* Test Item Value Reference Range Interpretation Comments basophils as percent of blood leukocytes (test code = 707-0) 0 % [facility] Hospitaleosinophils as percent of blood zopalizudk5621-59-32 08:24:00* Test Item Value Reference Range Interpretation Comments eosinophils as percent of blood leukocytes (test code = 713-8) 5 % [facility] Healthmonocytes as percent of blood zswtduwzwu6316-15-89 08:24:00* Test Item Value Reference Range Interpretation Comments monocytes as percent of blood leukocytes (test code = 5905-5) 7 % [facility] Hospitallymphocytes as percent of blood olcjszqtky3032-97-26 08:24:00* Test Item Value Reference Range Interpretation Comments lymphocytes as percent of blood leukocytes (test code = 736-9) 28 % [facility] Hospitalneutrophils as percent of blood bqofrqzqoo3035-74-34 08:24:00* Test Item Value Reference Range Interpretation Comments neutrophils as percent of blood leukocytes (test code = 770-8) 60 % [facility] Hospitalplatelet lromm5949-65-54 08:24:00* Test Item Value Reference Range Interpretation Comments platelet count (test code = 777-3) 290 X10E3/UL 150-379 [facility] Hospitalred blood cell distribution zunig7858-20-86 08:24:00* Test Item Value Reference Range Interpretation Comments red blood cell distribution width (test code = 788-0) 14.0 % 12.3-15.4 [facility] corpuscular hemoglobin concentration, LAV0586-00-18 08:24:00* Test Item Value Reference Range Interpretation Comments mean corpuscular hemoglobin concentration, RBC (test code = 786-4) 33.0 G/DL 31.5-35.7 [facility] corpuscular hemoglobin, AYB0186-01-70 08:24:00* Test Item Value Reference Range Interpretation Comments mean corpuscular hemoglobin, RBC (test code = 785-6) 32.4 pg 2 6.6-33.0 [facility] corpuscular volume, EHL9379-96-98 08:24:00* Test Item Value Reference Range Interpretation Comments mean corpuscular volume, RBC (test code = 787-2) 98 fL 79-97 H [facility] Hospitalhematocrit, tdahu0796-61-29 08:24:00* Test Item Value Reference Range Interpretation Comments hematocrit, blood (test code = 4544-3) 41.2 % 37.5-51.0 [facility] Hospitalhemoglobin, rnteg8308-21-16 08:24:00* Test Item Value Reference Range Interpretation Comments hemoglobin, blood (test code = 718-7) 13.6 g/dL 12.6-17.7 [facility] Hospitalerythrocyte (RBC) pmakq5040-09-69 08:24:00* Test Item Value Reference Range Interpretation Comments erythrocyte (RBC) count (test code = 789-8) 4.20 X10E6/UL 4.14-5.80 [facility] Hospitalleukocyte count, iicvh9510-27-52 08:24:00* Test Item Value Reference Range Interpretation Comments leukocyte count, blood (test code = 6690-2) 9.2 X10E3/UL 3.4-10.8 [facility] Hospitalblood glucose, zryneo6800-05-44 08:56:23* Test Item Value Reference Range Interpretation Comments blood glucose, random (test code = 2339-0) 206 mg/dL [facility] Hospitalhemoglobin A1C, blood, as % of total lwkmqntjic4014-34-32 08:07:00* Test Item Value Reference Range Interpretation Comments hemoglobin A1C, blood, as % of total hemoglobin (test code = 4548-4) 7.8 % 4.8-5.6 H [facility] HospitalLDL cholesterol, dryyh0237-39-34 08:07:00* Test Item Value Reference Range Interpretation Comments LDL cholesterol, serum (test code = 2089-1) 95 mg/dL 0-99 [facility] low density ltacvmlmyrqd0793-86-17 08:07:00* Test Item Value Reference Range Interpretation Comments very low density lipoproteins (test code = 2091-7) 38 mg/dL 5-4 0 [facility] HospitalHDL cholesterol, doedf1664-22-17 08:07:00* Test Item Value Reference Range Interpretation Comments HDL cholesterol, serum (test code = 2085-9) 37 mg/dL >39 L [facility] Hospitaltriglyceride, serum, jaxkwkn6081-49-90 08:07:00* Test Item Value Reference Range Interpretation Comments triglyceride, serum, fasting (test code = 2571-8) 192 mg/dL 0-14 9 H [facility] Hospitalcholesterol, lsxax5755-86-92 08:07:00* Test Item Value Reference Range Interpretation Comments cholesterol, serum (test code = 2093-3) 170 mg/dL 100-199 [facility] Healthalanine aminotransferase (SGPT), bvuku0340-17-66 08:07:00 * Test Item Value Reference Range Interpretation Comments alanine aminotransferase (SGPT), serum (test code = 1742-6) 33 1/L 0-44 [facility] Hospitalaspartate aminotransferase (SGOT), kzibi8942-52-82 08:07:00* Test Item Value Reference Range Interpretation Comments aspartate aminotransferase (SGOT), serum (test code = 1920-8) 31 1/ L 0-40 [facility] Hospitalalkaline phosphatase, dkcqh7627-34-91 08:07:00* Test Item Value Reference Range Interpretation Comments alkaline phosphatase, serum (test code = 1783-0) 124 1/L 39-11 7 H [facility] Hospitalbilirubin, serum, soprx0173-37-54 08:07:00* Test Item Value Reference Range Interpretation Comments bilirubin, serum, total (test code = 1975-2) 0.3 mg/dL 0.0-1.2 [facility] Healthalbumin/globulin ratio, oidkq4730-40-39 08:07:00* Test Item Value Reference Range Interpretation Comments albumin/globulin ratio, serum (test code = 1759-0) 1.0 1.1 -2.5 L [facility] Healthglobulin, czjbv8977-54-76 08:07:00* Test Item Value Reference Range Interpretation Comments globulin, serum (test code = 2336-6) 3.8 1.5-4.5 [facility] Healthalbumin, skdns7035-66-94 08:07:00* Test Item Value Reference Range Interpretation Comments albumin, serum (test code = 1751-7) 3.9 g/dL 3.5-5.5 [facility] Healthprotein, total, czmsc3009-61-85 08:07:00* Test Item Value Reference Range Interpretation Comments protein, total, serum (test code = 2885-2) 7.7 g/dL 6.0-8.5 [facility] Healthcalcium, mknlu8519-70-12 08:07:00* Test Item Value Reference Range Interpretation Comments calcium, serum (test code = 2000-8) 9.5 mg/dL 8.7-10.2 [facility] Hospitalcarbon dioxide, venous xcgws7207-05-69 08:07:00* Test Item Value Reference Range Interpretation Comments carbon dioxide, venous blood (test code = 2027-1) 24 mmol/L 18-2 9 [facility] Healthchloride, hpiqs6125-92-18 08:07:00* Test Item Value Reference Range Interpretation Comments chloride, serum (test code = 2075-0) 98 mmol/L 97-108 [facility] Healthpotassium, irojz7339-96-03 08:07:00* Test Item Value Reference Range Interpretation Comments potassium, serum (test code = 2823-3) 4.8 mmol/L 3.5-5.2 [facility] Hospitalsodium, yztqf7474-17-10 08:07:00* Test Item Value Reference Range Interpretation Comments sodium, serum (test code = 2951-2) 137 mmol/L 134-144 [facility] Hospitalurea nitrogen/creatinine ratio, ybvsn0805-20-26 08:07:00 * Test Item Value Reference Range Interpretation Comments urea nitrogen/creatinine ratio, serum (test code = 3097-3) 16 9-20 [facility] HealtheGFR if Igkvkkkd1886-29-04 08:07:00* Test Item Value Reference Range Interpretation Comments eGFR if (test code = 78526-9) 96 mL/min/((173/100) .m2) >59 [facility] HospitalEstimated Glomerular Filtration Rate (calc)2016-01-27 08:07:00* Test Item Value Reference Range Interpretation Comments Estimated Glomerular Filtration Rate (calc) (test code = 05382-9) 83 mL/min/((173/100).m2) >59 [facility] Hospitalcreatinine, qroqy5665-27-16 08:07:00* Test Item Value Reference Range Interpretation Comments creatinine, serum (test code = 2160-0) 1.04 mg/dL 0.76-1.27 [facility] Hospitalurea nitrogen, rzeyp5815-54-16 08:07:00* Test Item Value Reference Range Interpretation Comments urea nitrogen, blood (test code = 3094-0) 17 mg/dL 6-24 [facility] Hospitalblood glucose, hzayhd7049-39-95 08:07:00* Test Item Value Reference Range Interpretation Comments blood glucose, random (test code = 2339-0) 280 mg/dL 65-99 H [facility] Hospitalimmature granulocytes, percentage of total cells, blood 2016-01-27 08:07:00* Test Item Value Reference Range Interpretation Comments immature granulocytes, percentage of total cells, bloo d (test code = 57846-9) 0 % [facility] Hospitalbasophil count, pgxinqna5860-40-83 08:07:00* Test Item Value Reference Range Interpretation Comments basophil count, absolute (test code = 72809-6) 0.0 x10E3/uL 0.0-0.2 [facility] HealthEosinophil Absolute Geqcj0787-03-77 08:07:00* Test Item Value Reference Range Interpretation Comments Eosinophil Absolute Count (test code = 30887-1) 0.3 X10E3/UL 0.0-0. 4 [facility] Hospitalmonocyte count, blood, lcospfibh8872-54-77 08:07:00* Test Item Value Reference Range Interpretation Comments monocyte count, blood, automated (test code = 742-7) 0.6 X10E3/UL 0 .1-0.9 [facility] Hospitallymphocyte count, blood, oltogtuzf1202-64-30 08:07:00* Test Item Value Reference Range Interpretation Comments lymphocyte count, blood, automated (test code = 731-0) 1.9 X10E3/UL 0.7-3.1 [facility] HospitalAbsolute Lujgyapjuka8146-11-38 08:07:00* Test Item Value Reference Range Interpretation Comments Absolute Neutrophils (test code = 18573-6) 5.3 X10E3/UL 1.4-7.0 [facility] Hospitalbasophils as percent of blood wdeehlalrn8433-88-79 08:07:00* Test Item Value Reference Range Interpretation Comments basophils as percent of blood leukocytes (test code = 707-0) 0 % [facility] Hospitaleosinophils as percent of blood yrvlojijnp3289-00-22 08:07:00* Test Item Value Reference Range Interpretation Comments eosinophils as percent of blood leukocytes (test code = 713-8) 4 % [facility] Healthmonocytes as percent of blood qdpgbsinas0908-87-19 08:07:00* Test Item Value Reference Range Interpretation Comments monocytes as percent of blood leukocytes (test code = 5905-5) 8 % [facility] Hospitallymphocytes as percent of blood cdwunrpfmq4507-51-50 08:07:00* Test Item Value Reference Range Interpretation Comments lymphocytes as percent of blood leukocytes (test code = 736-9) 24 % [facility] Hospitalneutrophils as percent of blood frrakpfcyt6737-20-71 08:07:00* Test Item Value Reference Range Interpretation Comments neutrophils as percent of blood leukocytes (test code = 770-8) 64 % [facility] Hospitalplatelet varjf8818-20-79 08:07:00* Test Item Value Reference Range Interpretation Comments platelet count (test code = 777-3) 411 X10E3/UL 150-379 H [facility] Hospitalred blood cell distribution asjfi1352-23-55 08:07:00* Test Item Value Reference Range Interpretation Comments red blood cell distribution width (test code = 788-0) 13.1 % 12.3-15.4 [facility] corpuscular hemoglobin concentration, [id number] 08:07:00* Test Item Value Reference Range Interpretation Comments mean corpuscular hemoglobin concentration, RBC (test code = 786-4) 34.0 G/DL 31.5-35.7 [facility] corpuscular hemoglobin, PVQ6774-89-79 08:07:00* Test Item Value Reference Range Interpretation Comments mean corpuscular hemoglobin, RBC (test code = 785-6) 31.9 pg 2 6.6-33.0 [facility] corpuscular volume, RIZ6500-83-35 08:07:00* Test Item Value Reference Range Interpretation Comments mean corpuscular volume, RBC (test code = 787-2) 94 fL 79-97 [facility] Hospitalhematocrit, ujjum1684-64-61 08:07:00* Test Item Value Reference Range Interpretation Comments hematocrit, blood (test code = 4544-3) 40.9 % 37.5-51.0 [facility] Hospitalhemoglobin, sgkys1224-32-75 08:07:00* Test Item Value Reference Range Interpretation Comments hemoglobin, blood (test code = 718-7) 13.9 g/dL 12.6-17.7 [facility] Hospitalerythrocyte (RBC) beizx2187-10-44 08:07:00* Test Item Value Reference Range Interpretation Comments erythrocyte (RBC) count (test code = 789-8) 4.36 X10E6/UL 4.14-5.80 [facility] Hospitalleukocyte count, piefk9928-32-47 08:07:00* Test Item Value Reference Range Interpretation Comments leukocyte count, blood (test code = 6690-2) 8.2 X10E3/UL 3.4-10.8 [facility] Hospitalblood glucose, uipxxv6452-99-35 15:02:24* Test Item Value Reference Range Interpretation Comments blood glucose, random (test code = 2339-0) 120 mg/dL [facility] Hospitalblood glucose, xjghxm2462-37-06 10:04:20* Test Item Value Reference Range Interpretation Comments blood glucose, random (test code = 2339-0) 200 mg/dL [facility] HospitalQuantiferon Gold TB blood test for tuberculosis screening 2015-10-14 17:26:00* Test Item Value Reference Range Interpretation Comments Quantiferon Gold TB blood test for tuberculosis screen ing (test code = 66288-9) Negative Negative [facility] Hospitalhepatitis B surface fchaidv2643-30-18 17:26:00* Test Item Value Reference Range Interpretation Comments hepatitis B surface antigen (test code = 79) Negative Negative [facility] Hospitallipase, llzmn4666-85-68 17:26:00* Test Item Value Reference Range Interpretation Comments lipase, serum (test code = 3040-3) 38 U/L 0-59 [facility] Hospitalamylase, qtqqp0070-88-08 17:26:00* Test Item Value Reference Range Interpretation Comments amylase, serum (test code = 1798-8) 44 1/L 31-124 [facility] Hospitalthyroid stimulating hormone, ilkho2371-11-27 17:26:00* Test Item Value Reference Range Interpretation Comments thyroid stimulating hormone, serum (test code = 3016-3) 2.24 0 u[iU]/mL 0.450-4.500 [facility], dqluu8902-90-46 17:26:00* Test Item Value Reference Range Interpretation Comments hepatitis C antibody, serum (test code = 5199-5) 0.1 0.0-0 .9 [facility] HospitalHIV-CMIA (Chemiluminescent Microparticle Immuno Assay) 2015-10-14 17:26:00* Test Item Value Reference Range Interpretation Comments HIV-CMIA (Chemiluminescent Microparticle Immuno Assay) (test code = 746161) Non Reactive Non Reactive [facility] Hospitalvitamin D 25-hydroxy, ydtuy6168-31-59 17:26:00* Test Item Value Reference Range Interpretation Comments vitamin D 25-hydroxy, serum (test code = 13624-7) 22.1 ng/mL 30.0 -100.0 L [facility] Hospitalrapid plasma reagin antibody, icllg1951-44-73 17:26:00* Test Item Value Reference Range Interpretation Comments rapid plasma reagin antibody, serum (test code = 5291-0) Non Reactive Non Reactive [facility] Hospitalhemoglobin A1C, blood, as % of total kjhxmfacwe1910-74-53 17:26:00* Test Item Value Reference Range Interpretation Comments hemoglobin A1C, blood, as % of total hemoglobin (test code = 4548-4) 9.4 % 4.8-5.6 H [facility] Hospitalprostate specific tssbmvz2602-81-27 17:26:00* Test Item Value Reference Range Interpretation Comments prostate specific antigen (test code = 2857-1) 0.7 ng/mL 0.0-4.0 [facility] HospitalNeisseria gonorrhoeae DNA yezis1353-23-96 17:26:00* Test Item Value Reference Range Interpretation Comments Neisseria gonorrhoeae DNA probe (test code = 50157-2) Negative Negative [facility] Hospitalchlamydia DNA woxme1713-28-36 17:26:00* Test Item Value Reference Range Interpretation Comments chlamydia DNA probe (test code = 91482-3) Negative Negative [facility] HospitalHelicobacter pylori antibody, IgG, hezun5850-00-38 17:26:00* Test Item Value Reference Range Interpretation Comments Helicobacter pylori antibody, IgG, serum (test code = 2437) 5.4 U/m L 0.0-0.8 H [facility] Hospitaltestosterone, serum, wecl0386-25-79 17:26:00* Test Item Value Reference Range Interpretation Comments testosterone, serum, free (test code = 2991-8) 5.7 pg/mL 7.2-24. 0 L [facility] Hospitaltestosterone, zebta3677-16-92 17:26:00* Test Item Value Reference Range Interpretation Comments testosterone, total (test code = 2986-8) 776 ng/dL 348-1197 [facility] HospitalLDL cholesterol, szzwd7042-00-44 17:26:00* Test Item Value Reference Range Interpretation Comments LDL cholesterol, serum (test code = 2089-1) 150 mg/dL 0-99 H [facility] Hospitalvery low density xgdehmqgpvqb8340-04-77 17:26:00* Test Item Value Reference Range Interpretation Comments very low density lipoproteins (test code = 2091-7) 69 mg/dL 5-4 0 H [facility] HospitalHDL cholesterol, ncxbk4794-33-83 17:26:00* Test Item Value Reference Range Interpretation Comments HDL cholesterol, serum (test code = 2085-9) 47 mg/dL >39 [facility] Hospitaltriglyceride, serum, imsxqbt6207-09-50 17:26:00* Test Item Value Reference Range Interpretation Comments triglyceride, serum, fasting (test code = 2571-8) 345 mg/dL 0-14 9 H [facility] Hospitalcholesterol, iqjvv4671-23-37 17:26:00* Test Item Value Reference Range Interpretation Comments cholesterol, serum (test code = 2093-3) 266 mg/dL 100-199 H [facility] Hospitalbacteria, urine eazymjvgcr3666-45-36 17:26:00* Test Item Value Reference Range Interpretation Comments bacteria, urine microscopy (test code = 5769-5) None seen None s een/Few [facility] Hospitalmucus on llcxurmogm5745-69-20 17:26:00* Test Item Value Reference Range Interpretation Comments mucus on urinalysis (test code = 8247-9) Present [facility] Hospitalepithelial cells, pkbza0398-33-88 17:26:00* Test Item Value Reference Range Interpretation Comments epithelial cells, urine (test code = 5787-7) 0-10 0-10 [facility] HospitalRBC, Yarnd5090-14-43 17:26:00* Test Item Value Reference Range Interpretation Comments RBC, Urine (test code = 33060-7) 0-2 /hpf 0-2 [facility] HospitalWBC urine on rixpytgxzk9250-79-91 17:26:00* Test Item Value Reference Range Interpretation Comments WBC urine on microscopy (test code = 1016) 0-5 /hpf 0-5 [facility] Hospitalmicroscopic itxy9042-04-73 17:26:00* Test Item Value Reference Range Interpretation Comments microscopic exam (test code = 72509) See below: [facility] Hospitalurinalysis, microscopic zvhyhemlvny9910-00-56 17:26:00* Test Item Value Reference Range Interpretation Comments urinalysis, microscopic examination (test code = 86201-4) MICRON [facility] Hospitalnitrate, ddldd0897-19-58 17:26:00* Test Item Value Reference Range Interpretation Comments nitrate, urine (test code = 68466-3) Negative Negative [facility] Hospitalurobilinogen, urine, semiquantitative (dipstick) 2015-10-14 17:26:00* Test Item Value Reference Range Interpretation Comments urobilinogen, urine, semiquantitative (dipstick) (test code = 5818-0) 0.2 0.2-1.0 [facility] Hospitalbilirubin, qgugj3642-87-30 17:26:00* Test Item Value Reference Range Interpretation Comments bilirubin, urine (test code = 5770-3) Negative Negative [facility] Hospitalketones, urine, by test ykbbn4146-89-65 17:26:00* Test Item Value Reference Range Interpretation Comments ketones, urine, by test strip (test code = 5797-6) Negative Neg ative [facility] Hospitalglucose, urine, stnymosuoivettny5710-98-72 17:26:00* Test Item Value Reference Range Interpretation Comments glucose, urine, semiquantitative (test code = 5792-7) 3+ Negative A [facility] Hospitalprotein, urine, semiquantitative (dipstick)2015-10-14 17:26:00* Test Item Value Reference Range Interpretation Comments protein, urine, semiquantitative (dipstick) (test code = 175 3-3) Negative Negative/Trace [facility] Hospitalleukocyte esterase, urine, by zzlmfskn7230-58-18 17:26:00 * Test Item Value Reference Range Interpretation Comments leukocyte esterase, urine, by dipstick (test code = 5799-2) Negativ e Negative [facility] Hospitalappearance, pogwi2545-81-47 17:26:00* Test Item Value Reference Range Interpretation Comments appearance, urine (test code = 5767-9) Clear Clear [facility] Hospitalurine ugzpk4401-06-28 17:26:00* Test Item Value Reference Range Interpretation Comments urine color (test code = 5778-6) Yellow Yellow [facility] HospitalpH, urine, ezcrvcrpgzjngveg2446-24-83 17:26:00* Test Item Value Reference Range Interpretation Comments pH, urine, semiquantitative (test code = 5803-2) 5.5 5.0-7 .5 [facility] Hospitalspecific gravity, body kxztq1856-89-98 17:26:00* Test Item Value Reference Range Interpretation Comments specific gravity, body fluid (test code = 2964-5) >1.030 1.00 5-1.030 H [facility] Hospitalalanine aminotransferase (SGPT), cyups2226-81-60 17:26:00 * Test Item Value Reference Range Interpretation Comments alanine aminotransferase (SGPT), serum (test code = 1742-6) 45 1/L 0-44 H [facility] Hospitalaspartate aminotransferase (SGOT), bhfgk1815-40-61 17:26:00* Test Item Value Reference Range Interpretation Comments aspartate aminotransferase (SGOT), serum (test code = 1920-8) 28 1/ L 0-40 [facility] Hospitalalkaline phosphatase, xywuo2604-66-03 17:26:00* Test Item Value Reference Range Interpretation Comments alkaline phosphatase, serum (test code = 1783-0) 105 1/L 39-11 7 [facility] Hospitalbilirubin, serum, tfmnr4385-30-18 17:26:00* Test Item Value Reference Range Interpretation Comments bilirubin, serum, total (test code = 1975-2) <0.2 mg/dL 0.0-1.2 [facility] Hospitalalbumin/globulin ratio, xkktd5579-50-17 17:26:00* Test Item Value Reference Range Interpretation Comments albumin/globulin ratio, serum (test code = 1759-0) 1.3 1.1 -2.5 [facility] Hospitalglobulin, jteug0812-77-34 17:26:00* Test Item Value Reference Range Interpretation Comments globulin, serum (test code = 2336-6) 3.5 1.5-4.5 [facility] Hospitalalbumin, rtfyr2608-91-21 17:26:00* Test Item Value Reference Range Interpretation Comments albumin, serum (test code = 1751-7) 4.4 g/dL 3.5-5.5 [facility] Healthprotein, total, azowo9733-10-30 17:26:00* Test Item Value Reference Range Interpretation Comments protein, total, serum (test code = 2885-2) 7.9 g/dL 6.0-8.5 [facility] Hospitalcalcium, ulmha2433-97-36 17:26:00* Test Item Value Reference Range Interpretation Comments calcium, serum (test code = 2000-8) 10.2 mg/dL 8.7-10.2 [facility] Hospitalcarbon dioxide, venous gvvyq2400-19-37 17:26:00* Test Item Value Reference Range Interpretation Comments carbon dioxide, venous blood (test code = 2027-1) 25 mmol/L 18-2 9 [facility] Healthchloride, owxmp1704-53-13 17:26:00* Test Item Value Reference Range Interpretation Comments chloride, serum (test code = 2075-0) 95 mmol/L 97-108 L [facility] Hospitalpotassium, kobrv1131-01-14 17:26:00* Test Item Value Reference Range Interpretation Comments potassium, serum (test code = 2823-3) 4.2 mmol/L 3.5-5.2 [facility]alsodium, [id number] 17:26:00* Test Item Value Reference Range Interpretation Comments sodium, serum (test code = 2951-2) 136 mmol/L 134-144 [facility]urea nitrogen/creatinine ratio, [id number] 17:26:00 * Test Item Value Reference Range Interpretation Comments urea nitrogen/creatinine ratio, serum (test code = 3097-3) 18 9-20 [facility] if [id number] 17:26:00* Test Item Value Reference Range Interpretation Comments eGFR if (test code = 66047-2) 105 mL/min/((173/100 ).m2) >59 [facility] HospitalEstimated Glomerular Filtration Rate (calc)2015-10-14 17:26:00* Test Item Value Reference Range Interpretation Comments Estimated Glomerular Filtration Rate (calc) (test code = 95101-3) 91 mL/min/((173/100).m2) >59 [facility] Hospitalcreatinine, [id number] 17:26:00* Test Item Value Reference Range Interpretation Comments creatinine, serum (test code = 2160-0) 0.97 mg/dL 0.76-1.27 [facility] Hospitalurea nitrogen, [id number] 17:26:00* Test Item Value Reference Range Interpretation Comments urea nitrogen, blood (test code = 3094-0) 17 mg/dL 6-24 [facility]blood glucose, [id number] 17:26:00* Test Item Value Reference Range Interpretation Comments blood glucose, random (test code = 2339-0) 219 mg/dL 65-99 H [facility] Hospitalimmature granulocytes, percentage of total cells, blood 2015-10-14 17:26:00* Test Item Value Reference Range Interpretation Comments immature granulocytes, percentage of total cells, bloo d (test code = 06802-4) 0 % [facility]basophil count, [id number] 17:26:00* Test Item Value Reference Range Interpretation Comments basophil count, absolute (test code = 43435-6) 0.1 x10E3/uL 0.0-0.2 [facility] HospitalEosinophil Absolute [id number] 17:26:00* Test Item Value Reference Range Interpretation Comments Eosinophil Absolute Count (test code = 27976-9) 0.2 X10E3/UL 0.0-0. 4 [facility] Hospitalmonocyte count, blood, [id number] 17:26:00* Test Item Value Reference Range Interpretation Comments monocyte count, blood, automated (test code = 742-7) 0.8 X10E3/UL 0 .1-0.9 [facility]allymphocyte count, blood, [id number] 17:26:00* Test Item Value Reference Range Interpretation Comments lymphocyte count, blood, automated (test code = 731-0) 2.8 X10E3/UL 0.7-3.1 [facility] HospitalAbsolute Sitijbvjnpt6238-90-26 17:26:00* Test Item Value Reference Range Interpretation Comments Absolute Neutrophils (test code = 61590-6) 5.7 X10E3/UL 1.4-7.0 [facility] Hospitalbasophils as percent of blood [id number] 17:26:00* Test Item Value Reference Range Interpretation Comments basophils as percent of blood leukocytes (test code = 707-0) 1 % [facility]aleosinophils as percent of blood [id number] 17:26:00* Test Item Value Reference Range Interpretation Comments eosinophils as percent of blood leukocytes (test code = 713-8) 2 % [facility] Healthmonocytes as percent of blood cerjeozgwv3252-38-09 17:26:00* Test Item Value Reference Range Interpretation Comments monocytes as percent of blood leukocytes (test code = 5905-5) 8 % [facility]allymphocytes as percent of blood [id number] 17:26:00* Test Item Value Reference Range Interpretation Comments lymphocytes as percent of blood leukocytes (test code = 736-9) 29 % [facility] Hospitalneutrophils as percent of blood puufpswfvm7265-77-80 17:26:00* Test Item Value Reference Range Interpretation Comments neutrophils as percent of blood leukocytes (test code = 770-8) 60 % [facility] Hospitalplatelet [id number] 17:26:00* Test Item Value Reference Range Interpretation Comments platelet count (test code = 777-3) 332 X10E3/UL 150-379 [facility] Hospitalred blood cell distribution fyssu3780-78-28 17:26:00* Test Item Value Reference Range Interpretation Comments red blood cell distribution width (test code = 788-0) 13.7 % 12.3-15.4 [facility] corpuscular hemoglobin concentration, [id number] 17:26:00* Test Item Value Reference Range Interpretation Comments mean corpuscular hemoglobin concentration, RBC (test code = 786-4) 35.0 G/DL 31.5-35.7 [facility] corpuscular hemoglobin, [id number] 17:26:00* Test Item Value Reference Range Interpretation Comments mean corpuscular hemoglobin, RBC (test code = 785-6) 32.0 pg 2 6.6-33.0 [facility] corpuscular volume, [id number] 17:26:00* Test Item Value Reference Range Interpretation Comments mean corpuscular volume, RBC (test code = 787-2) 92 fL 79-97 [facility] Hospitalhematocrit, [id number] 17:26:00* Test Item Value Reference Range Interpretation Comments hematocrit, blood (test code = 4544-3) 40.9 % 37.5-51.0 [facility] Hospitalhemoglobin, [id number] 17:26:00* Test Item Value Reference Range Interpretation Comments hemoglobin, blood (test code = 718-7) 14.3 g/dL 12.6-17.7 [facility] Hospitalerythrocyte (RBC) [id number] 17:26:00* Test Item Value Reference Range Interpretation Comments erythrocyte (RBC) count (test code = 789-8) 4.47 X10E6/UL 4.14-5.80 [facility] Hospitalleukocyte count, [id number] 17:26:00* Test Item Value Reference Range Interpretation Comments leukocyte count, blood (test code = 6690-2) 9.5 X10E3/UL 3.4-10.8 [facility] Hospitalblood glucose, vgqwrd6866-59-74 16:24:35* Test Item Value Reference Range Interpretation Comments blood glucose, random (test code = 2339-0) 218 mg/dL [facility]
--- OUTSIDE RECORDS SUMMARY | 2020-09-12 18:58 | XMS REPORT | Continuity of Care Document ---
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 weight E&M 2019-09-05 11:23:26 210 [lb_av] [facility] E&M 2019-09-05 11:23:26 95.45 kg [facility] temperature site 2019-09-05 11:23:26 oral [facility] respiratory rate E&M 2019-09-05 11:23:26 18 /min [facility] height in centimeters E&M 2019-09-05 11:23:26 175.26 cm [facility] blood pressure, diastolic 2019-02-01 10:56:38 91 mm[Hg] [facility] blood pressure, systolic 2019-02-01 10:56:38 202 mm[Hg] [facility] oxygen saturation, oximetry 2019-02-01 10:56:38 97 % [facility] pulse rate 2019-02-01 10:56:38 59 /min [facility] 2019-02-01 10:56:38 97.7 [degF] [facility] weight E&M 2019-02-01 10:56:38 212 [lb_av] [facility] E&M 2019-02-01 10:56:38 96.36 kg [facility] temperature site 2019-02-01 10:56:38 oral [facility] height in centimeters E&M 2019-02-01 10:56:38 175.26 cm [facility] blood pressure, diastolic 2019-02-01 09:03:00 98 mm[Hg] [facility] blood pressure, systolic 2019-02-01 09:03:00 182 mm[Hg] [facility] oxygen saturation, oximetry 2019-02-01 09:03:00 97 % [facility] respiratory rate E&M 2019-02-01 09:03:00 12 /min [facility] pulse rate 2019-02-01 09:03:00 59 /min [facility] temperature E&M 2019-02-01 09:03:00 97.7 [degF] [facility] weight E&M 2019-02-01 09:03:00 212 [lb_av] [facility] weight in kilograms E&M 2019-02-01 09:03:00 96.36 kg [facility] site 2019-02-01 09:03:00 oral [facility] height in centimeters E&M 2019-02-01 09:03:00 175.26 cm [facility] oxygen saturation, oximetry 2018-12-15 12:46:55 97 % [facility] respiratory rate E&M 2018-12-15 12:46:55 18 /min [facility] pulse rate 2018-12-15 12:46:55 68 /min [facility] blood pressure, diastolic 2018-12-15 12:46:55 89 mm[Hg] [facility] blood pressure, systolic 2018-12-15 12:46:55 192 mm[Hg] [facility] temperature E&M 2018-12-15 12:46:55 97.5 [degF] [facility] height in centimeters E&M 2018-12-15 12:46:55 175.26 cm [facility] site 2018-12-15 12:46:55 oral [facility] weight E&M 2018-12-15 12:46:55 218 [lb_av] [facility] weight in kilograms E&M 2018-12-15 12:46:55 99.09 kg [facility] blood pressure, diastolic 2018-09-19 08:40:31 84 mm[Hg] [facility] blood pressure, systolic 2018-09-19 08:40:31 191 mm[Hg] [facility] oxygen saturation, oximetry 2018-09-19 08:40:31 98 % [facility] respiratory rate E&M 2018-09-19 08:40:31 12 /min [facility] pulse rate 2018-09-19 08:40:31 58 /min [facility] 2018-09-19 08:40:31 oral [facility] temperature E&M 2018-09-19 08:40:31 98.1 [degF] [facility] weight E&M 2018-09-19 08:40:31 221 [lb_av] [facility] weight in kilograms E&M 2018-09-19 08:40:31 100.45 kg [facility] height in centimeters E&M 2018-09-19 08:40:31 175.26 cm [facility] blood pressure, diastolic 2018-07-04 12:16:17 76 mm[Hg] [facility] blood pressure, systolic 2018-07-04 12:16:17 162 mm[Hg] [facility] pulse rate 2018-07-04 12:16:17 63 /min [facility] oxygen saturation, oximetry 2018-07-04 12:16:17 97 % [facility] temperature E&M 2018-07-04 12:16:17 98.3 [degF] [facility] weight E&M 2018-07-04 12:16:17 215 [lb_av] [facility] weight in kilograms E&M 2018-07-04 12:16:17 97.73 kg [facility] height in centimeters E&M 2018-07-04 12:16:17 175.26 cm [facility] temperature site 2018-05-09 10:11:25 oral [facility] oxygen saturation, oximetry 2018-05-09 10:11:25 97 % [facility] blood pressure, diastolic 2018-05-09 10:11:25 90 mm[Hg] [facility] blood pressure, systolic 2018-05-09 10:11:25 171 mm[Hg] [facility] pulse rate 2018-05-09 10:11:25 59 /min [facility] 2018-05-09 10:11:25 97.6 [degF] [facility] weight E&M 2018-05-09 10:11:25 208.44 [lb_av] [facility] weight in kilograms E&M 2018-05-09 10:11:25 94.75 [facility] height in centimeters E&M 2018-05-09 10:11:25 175.26 cm [facility] blood pressure, diastolic 2018-01-20 11:33:44 90 mm[Hg] [facility] blood pressure, systolic 2018-01-20 11:33:44 198 mm[Hg] [facility] oxygen saturation, oximetry 2018-01-20 11:33:44 97 % [facility] pulse rate 2018-01-20 11:33:44 60 /min [facility] 2018-01-20 11:33:44 tympanic [facility] temperature E&M 2018-01-20 11:33:44 95.6 [degF] [facility] weight E&M 2018-01-20 11:33:44 206 [lb_av] [facility] E&M 2018-01-20 11:33:44 93.64 kg [facility] height in centimeters E&M 2018-01-20 11:33:44 175.26 cm [facility] blood pressure, diastolic 2017-10-25 15:20:44 74 mm[Hg] [facility] blood pressure, systolic 2017-10-25 15:20:44 125 mm[Hg] [facility] pulse rate 2017-10-25 15:20:44 73 /min [facility] oxygen saturation, oximetry 2017-10-25 15:20:44 98 % [facility] temperature E&M 2017-10-25 15:20:44 97.6 [degF] [facility] weight E&M 2017-10-25 15:20:44 199 [lb_av] [facility] weight in kilograms E&M 2017-10-25 15:20:44 90.45 kg [facility] temperature site 2017-10-25 15:20:44 tympanic [facility] height in centimeters E&M 2017-10-25 15:20:44 175.26 cm [facility] pulse rate 2017-08-02 16:08:02 78 /[facility], diastolic 2017-08-02 16:08:02 69 mm[Hg] [facility] blood pressure, systolic 2017-08-02 16:08:02 110 mm[Hg] [facility] temperature E&M 2017-08-02 16:08:02 96.5 [degF] [facility] weight E&M 2017-08-02 16:08:02 199.38 [lb_av] [facility] weight in kilograms E&M 2017-08-02 16:08:02 90.63 kg [facility] temperature site 2017-08-02 16:08:02 tympanic [facility] height in centimeters E&M 2017-08-02 16:08:02 175.26 cm [facility] pulse rate 2017-03-29 09:49:20 61 /min [facility] blood pressure, diastolic 2017-03-29 09:49:20 87 mm[Hg] [facility] blood pressure, systolic 2017-03-29 09:49:20 173 mm[Hg] [facility] temperature E&M 2017-03-29 09:49:20 97.9 [degF] [facility] 2017-03-29 09:49:20 98 % [facility] weight E&M 2017-03-29 09:49:20 213.38 [lb_av] [facility] weight in kilograms E&M 2017-03-29 09:49:20 96.99 kg [facility] height in centimeters E&M 2017-03-29 09:49:20 175.26 cm [facility] temperature site 2017-03-29 09:49:20 tympanic [facility] temperature site 2016-12-07 08:34:07 tympanic [facility] pulse rate 2016-12-07 08:34:07 60 /min [facility], diastolic 2016-12-07 08:34:07 95 mm[Hg] [facility] blood pressure, systolic 2016-12-07 08:34:07 185 mm[Hg] [facility] oxygen saturation, oximetry 2016-12-07 08:34:07 99 % [facility] temperature E&M 2016-12-07 08:34:07 96.4 [degF] [facility] weight E&M 2016-12-07 08:34:07 218.38 [lb_av] [facility] weight in kilograms E&M 2016-12-07 08:34:07 99.26 kg [facility] height in centimeters E&M 2016-12-07 08:34:07 175.26 cm [facility] blood pressure, diastolic 2016-09-07 08:30:17 96 mm[Hg] [facility] blood pressure, systolic 2016-09-07 08:30:17 196 mm[Hg] [facility] oxygen saturation, oximetry 2016-09-07 08:30:17 99 % [facility] pulse rate 2016-09-07 08:30:17 66 /min [facility] 2016-09-07 08:30:17 95.8 [degF] [facility] weight E&M 2016-09-07 08:30:17 222 [lb_av] [facility] E&M 2016-09-07 08:30:17 100.91 kg [facility] temperature site 2016-09-07 08:30:17 tympanic [facility] height in centimeters E&M 2016-09-07 08:30:17 175.26 cm [facility] pulse rate 2016-05-26 08:28:37 62 /min [facility], diastolic 2016-05-26 08:28:37 85 mm[Hg] [facility] blood pressure, systolic 2016-05-26 08:28:37 160 mm[Hg] [facility] temperature E&M 2016-05-26 08:28:37 97.4 [degF] [facility] oxygen [facility], oximetry 2016-05-26 08:28:37 98 % [facility] weight E&M 2016-05-26 08:28:37 221.25 [lb_av] [facility] weight in kilograms E&M 2016-05-26 08:28:37 100.57 kg [facility] temperature site 2016-05-26 08:28:37 tympanic [facility] height in centimeters E&M 2016-05-26 08:28:37 175.26 cm [facility] pulse rate 2016-02-10 08:56:23 64 /min [facility] blood pressure, diastolic 2016-02-10 08:56:23 92 mm[Hg] [facility] blood pressure, systolic 2016-02-10 08:56:23 172 mm[Hg] [facility] temperature E&M 2016-02-10 08:56:23 97.3 [degF] [facility] oxygen saturation, oximetry 2016-02-10 08:56:23 97 % [facility] weight E&M 2016-02-10 08:56:23 217 [lb_av] [facility] weight in kilograms E&M 2016-02-10 08:56:23 98.64 kg [facility] height in centimeters E&M 2016-02-10 08:56:23 175.26 cm [facility] temperature site 2016-02-10 08:56:23 [facility] 2015-11-21 15:02:24 80 /min [facility] blood pressure, diastolic 2015-11-21 15:02:24 96 mm[Hg] [facility] blood pressure, systolic 2015-11-21 15:02:24 167 mm[Hg] [facility] temperature site 2015-11-21 15:02:24 tympanic [facility] temperature E&M 2015-11-21 15:02:24 97.0 [degF] [facility] oxygen saturation, oximetry 2015-11-21 15:02:24 98 % [facility] weight E&M 2015-11-21 15:02:24 206.25 [lb_av] [facility] weight in kilograms E&M 2015-11-21 15:02:24 93.75 kg [facility] height in centimeters E&M 2015-11-21 15:02:24 175.26 cm [facility] pulse rate 2015-10-28 10:04:20 68 /min [facility] blood pressure, diastolic 2015-10-28 10:04:20 87 mm[Hg] [facility] blood pressure, systolic 2015-10-28 10:04:20 149 mm[Hg] [facility] weight E&M 2015-10-28 10:04:20 204.13 [lb_av] [facility] weight in kilograms E&M 2015-10-28 10:04:20 92.79 kg [facility] oxygen saturation, oximetry 2015-10-28 10:04:20 97 % [facility] temperature E&M 2015-10-28 10:04:20 97.0 [degF] [facility] temperature [facility] 2015-10-28 10:04:20 [facility] height in centimeters E&M 2015-10-28 10:04:20 175.26 cm [facility] pulse rate 2015-10-14 16:24:35 76 /min [facility] blood pressure, diastolic 2015-10-14 16:24:35 91 mm[Hg] [facility] blood pressure, systolic 2015-10-14 16:24:35 151 mm[Hg] [facility] temperature E&M 2015-10-14 16:24:35 97.4 [degF] [facility] oxygen saturation, oximetry 2015-10-14 16:24:35 97 % [facility] weight E&M 2015-10-14 16:24:35 202.38 [lb_av] [facility] weight in kilograms E&M 2015-10-14 16:24:35 91.99 kg [facility] height in centimeters E&M 2015-10-14 16:24:35 175.26 cm [facility] temperature site 2015-10-14 16:24:35 [facility] Procedures Procedure Date / Time Performed Performing Clinician [facility] e Magnetic resonance imaging of brain without contrast 2020-08-08 00:00:00 [facility] Computed tomography of brain without radiopaque contrast 2020-07 00:00:00 [facility] Ultrasound, renal 2020-08-05 00:00:00 [facility] Ultrasound guidance for vascular access 2020-08-05 00:00:00 [facility] US RENAL 2020-03-08 12:29:53 [place] Glucose Stick 2018-05-09 10:35:28 Jessica [facility] Glucose Stick 2015-10-28 10:57:18 Ramiro Rizzo [facility] Glucose Stick 2015-10-14 17:13:27 Ramiro Rizzo [facility] Venipuncture 2015-10-14 17:12:33 Ramiro Rizzo [facility] Plan of Care Planned Activity Planned Date Details Comments Source Future Scheduled Test 2020-06-08 00:00:00 INFLUENZA VACCINE [code = INFLUENZA VACCINE] [facility] Scheduled Test 2015 00:00:00 COLONOSCOPY SCREEN ING [code = COLONOSCOPY SCREENING] [facility] Scheduled Test 2015 00:00:00 SHINGLES VACCINES (#1) [code = SHINGLES VACCINES (#1)] [facility] Scheduled Test 1975 00:00:00 DIABETES: RETINAL EYE EXAM [code = DIABETES: RETINAL EYE EXAM] [facility] Scheduled Test 1975 00:00:00 DIABETIC FOOT EXAM [code = DIABETIC FOOT EXAM] [facility] Scheduled Test 1975 00:00:00 URINE MICROALBUMIN [code = URINE MICROALBUMIN] [facility] Hypertension [facility] Encounters Start Date/Time End Date/Time Encounter Type Admission Type [facility] Care Department Encounter ID Source 2020-08-27 00:00:00 2020-08-27 00:00:00 Office Visit Eri Norman [facility] Encounter[facility][id number] [facility] 2020-08-27 00:00:00 2020-08-27 00:00:00 Office Visit Angle Rossi [facility] Encounter/[id number] [facility] 2020-08-27 00:00:00 2020-08-27 00:00:00 Office Visit Eri Norman [facility] Encounter/[id number] [facility] 2020-08-26 00:00:00 2020-08-26 00:00:00 Office Visit Eri Norman [facility] Encounter/[id number] [facility] 2020-08-26 00:00:00 2020-08-26 00:00:00 Office Visit Eri Norman [facility] Encounter/[id number] [facility] 2020-08-26 00:00:00 2020-08-26 00:00:00 Office Visit Paula Melo, Radha Avila, Juan Luis Montesinos [id number] [facility] 2020-08-26 [facility]:00 2020-08-26 00:00:00 Office Visit Eri Norman [facility] Encounter/[id number] [facility] 2020-08-23 00:00:00 2020-08-23 00:00:00 Office Visit Melissa Brock [facility] Encounter/[id number] [facility] 2020-08-23 00:00:00 2020-08-23 00:00:00 Office Visit Abelino Hewitt Violeta [facility] Encounter/[id number] [facility] 2020-08-19 00:00:00 2020-08-19 00:00:00 Office Visit Melissa Brock [facility] Encounter/[id number] [facility] 2020-08-19 00:00:00 2020-08-19 00:00:00 Office Visit Abelino Hewitt Channin [facility] Encounter/[id number] [facility] 2020-08-19 00:00:00 2020-08-19 00:00:00 Office Visit Melissa Brock [facility] Encounter/[id number] [facility] 2020-08-17 00:00:00 2020-08-17 00:00:00 Office Visit Juan Luis Bennett [facility] Encounter/[id number] [facility] 2020-08-14 00:00:00 2020-08-14 00:00:00 Office Visit Eri Norman [facility] Encounter/[id number] [facility] 2020-08-04 21:25:00 2020-08-10 20:20:00 Discharged Inpatient 1 JESIKA BANDA [facility] [id number] [facility] 2020-08-10 00:00:00 2020-08-10 00:00:00 Office Visit Eri Norman willa [facility] Encounter/[id number] [facility] 2020-07-05 00:00:00 2020-07-05 00:00:00 Office Visit Zuri rebeccaPaula puri Tammy [facility], Paula Ben [facility], Carla [facility] Encounter/[id number] [facility] 2020-04-17 00:00:00 2020-04-17 00:00:00 Office Visit AuraGerardo fallon [facility] Encounter/[id number] [facility] 2020-04-08 00:00:00 2020-04-08 00:00:00 Office Visit Rajinder Zendejas javier [facility] Encounter/[id number] [facility] 2020-04-02 00:00:00 2020-04-02 00:00:00 Office Visit Zuri rebeccaPaula puri MedAdherenceMary EllenMonique [facility] Encounter/[id number] [facility] 2020-03-26 00:00:00 2020-03-26 00:00:00 Office Visit AuraGerardo fallon [facility] Encounter/[id number] [facility] 2020-03-08 00:00:00 2020-03-08 00:00:00 Outpatient DANNY HOLDEN [facility] SYSTEM [id number] Formerly [facility] 2020-02-07 00:00:00 2020-02-07 00:00:00 Office Visit AuraGerardo fallon [facility] Encounter/[id number] Formerly [facility] 2020-02-07 00:00:00 2020-02-07 00:00:00 Office Visit AuraGerardo fallon [facility] Encounter/[id number] [facility] 2020-02-06 00:00:00 2020-02-06 00:00:00 Office Visit [place] Channin Acharya, Vianay [facility] Encounter/[id number] [facility] 2020-02-05 00:00:00 2020-02-05 00:00:00 Office Visit Gerardo Holden [facility] Encounter[facility][id number] [facility] 2020-02-01 00:00:00 2020-02-01 00:00:00 Office Visit Vannessa Martin gianfranco [facility] Encounter/[id number] [facility] 2020-01-30 00:00:00 2020-01-30 00:00:00 Office Visit Josette Archuleta [facility] LC Encounter/[id number] [facility] 2020-01-23 00:00:00 2020-01-23 00:00:00 Office Visit [place] Jonah [facility] Encounter/[id number] [facility] 2020-01-06 00:00:00 2020-01-06 00:00:00 Office Visit Gerardo Holden [facility] Encounter/[id number] [facility] 2020-01-06 00:00:00 2020-01-06 00:00:00 Office Visit Gerardo Holden [facility] Encounter/[id number] [facility] 2020-01-06 00:00:00 2020-01-06 00:00:00 Office Visit Gerardo Holden [facility] Encounter/[id number] [facility] 2020-01-04 00:00:00 2020-01-04 00:00:00 Office Visit Nirav Galvin Angelo S [facility] Encounter/[id number] [facility] 2019-11-29 00:00:00 2019-11-29 00:00:00 Office Visit Dimitry Soliz [facility] LC Encounter/[id number] [facility] 2019-11-21 00:00:00 2019-11-21 00:00:00 Office Visit [place] Mayeli [facility] Encounter/[id number] [facility] 2019-11-21 00:00:00 2019-11-21 00:00:00 Office Visit Eri Norman [facility] Encounter/[id number] [facility] 2019-11-21 00:00:00 2019-11-21 00:00:00 [facility][id number] [facility] 2019-11-14 00:00:00 2019-11-14 00:00:00 Office Visit Eri Norman [facility] Encounter/[id number] [facility] 2019-11-14 00:00:00 2019-11-14 00:00:00 Office Visit Paula Melo Tamika Foster, Nirav Bennett, Juan Luis Redman [facility][id number] [facility]-11-13 00:00:00 2019-11-13 00:00:00 Office Visit Eri Norman [facility] Encounter/[id number] [facility] 2019-11-09 00:00:00 2019-11-09 00:00:00 Office Visit Eri Norman Wilda [facility] Encounter/[id number] [facility] 2019-11-09 00:00:00 2019-11-09 00:00:00 [facility]/[id number] [facility] 2019-11-09 00:00:00 2019-11-09 00:00:00 Office Visit Ignacio Baugh LC Encounter/[id number] [facility] 2019-10-23 00:00:00 2019-10-23 00:00:00 Office Visit Rajinder Zendejas [facility] LC Encounter/[id number] [facility] 2019-10-19 00:00:00 2019-10-19 00:00:00 Office Visit Eri Norman [facility] LC Encounter/[id number] [facility] 2019-10-07 23:22:00 2019-10-13 10:30:00 Discharged Inpatient 1 ROBBY LARSEN [facility] [id number] [facility] 2019-10-09 00:00:00 2019-10-09 00:00:00 Office Visit Inna Salterra [facility] Encounter/[id number] [facility] 2019-10-04 00:00:00 2019-10-04 00:00:00 Office Visit Juan Luis Bennett [facility] Encounter/[id number] [facility] 2019-10-02 00:00:00 2019-10-02 00:00:00 Office Visit Dimitry Soliz in [facility] Encounter/[id number] [facility] 2019-10-02 00:00:00 2019-10-02 00:00:00 Office Visit Marcial Solizl in [facility] Encounter/[id number] [facility] 2019-10-02 00:00:00 2019-10-02 00:00:00 Office Visit Dimitry Soliz in [facility] Encounter/[id number] [facility] 2019-10-02 00:00:00 2019-10-02 00:00:00 Office Visit Ramiro Rae Rinal [facility] Encounter/[id number] [facility] 2019-09-30 00:00:00 2019-09-30 00:00:00 Office Visit Eri Norman [facility] Encounter/[id number] [facility] 2019-09-29 00:00:00 2019-09-29 00:00:00 Office Visit Dimitry Soliz in [facility] Encounter/[id number] [facility] 2019-09-29 00:00:00 2019-09-29 00:00:00 Office Visit Dimitry Soliz in [facility] Encounter/[id number] [facility] 2019-09-29 00:00:00 2019-09-29 00:00:00 Office Visit Eri Norman [facility] Encounter/[id number] [facility] 2019-09-29 00:00:00 2019-09-29 00:00:00 Office Visit Paula Melo Co Shanna [facility] Encounter/[id number] [facility] 2019-09-29 00:00:00 2019-09-29 00:00:00 Office Visit Vannessa Martin [facility] LC Encounter/[id number] [facility] 2019-09-29 00:00:00 2019-09-29 00:00:00 Office Visit Jessica Thompson Nazjely Smith, Robert Cardenas, Victoria [facility] LC Encounter/[id number] [facility] 2019-09-28 00:00:00 2019-09-28 00:00:00 Office Visit Josette Archuleta [facility] LC Encounter/[id number] [facility] 2019-09-27 00:00:00 2019-09-27 00:00:00 Office Visit Eri Norman [facility] LC Encounter/[id number] [facility] 2019-09-27 00:00:00 2019-09-27 00:00:00 Office Visit Eri Norman LC Encounter/[id number] [facility] 2019-09-27 00:00:00 2019-09-27 00:00:00 Office Visit S Paula mensah, Co Юлия [facility] LC Encounter/[id number] [facility] 2019-09-27 00:00:00 2019-09-27 00:00:00 Office Visit Paula Melo [facility],Kaylie LC LC Encounter/[id number] [facility] 2019-09-21 00:00:00 2019-09-21 00:00:00 Office Visit David Beltre ra LC Encounter/[id number] [facility] 2019-09-21 00:00:00 2019-09-21 00:00:00 Office Visit Eri Norman LC Encounter/[id number] [facility] 2019-09-21 00:00:00 2019-09-21 00:00:00 Office Visit Eri Norman LC Encounter/[id number] [facility] 2019-09-21 00:00:00 2019-09-21 00:00:00 Office Visit Eri Norman [facility] LC Encounter/[id number] [facility] 2019-09-21 00:00:00 2019-09-21 00:00:00 Office Visit Eri Norman [facility] LC Encounter/[id number] [facility] 2019-09-20 00:00:00 2019-09-20 00:00:00 Office Visit Juan Luis Bennett silvana [facility] LC Encounter/[id number] [facility] 2019-09-20 00:00:00 2019-09-20 00:00:00 Office Visit Juan Luis Bennett silvana [facility] LC Encounter/[id number] [facility] 2019-09-19 00:00:00 2019-09-19 00:00:00 Office Visit Paula Melo Jonah LC LC Encounter/[id number] [facility] 2019-09-19 00:00:00 2019-09-19 00:00:00 Office Visit Eri Norman Wilda LC Encounter/[id number] [facility] 2019-09-18 00:00:00 2019-09-18 00:00:00 Office Visit Eri Norman [facility] LC Encounter/[id number] [facility] 2019-09-16 00:00:00 2019-09-16 00:00:00 Office Visit Eri Norman [facility] LC Encounter/[id number] [facility] 2019-09-16 00:00:00 2019-09-16 00:00:00 Office Visit Eri Norman [facility] LC Encounter/[id number] [facility] 2019-09-16 00:00:00 2019-09-16 00:00:00 Office Visit Eri Norman LC Encounter/[id number] [facility] 2019-09-16 00:00:00 2019-09-16 00:00:00 Office Visit Eri Norman LC Encounter/[id number] [facility] 2019-09-16 00:00:00 2019-09-16 00:00:00 Office Visit Paula Melo Rinal Moxey, Co Shanna [facility] Encounter/[id number] [facility] 2019-09-16 00:00:00 2019-09-16 00:00:00 Office Visit Paula Melo Co Shanna [facility] LC Encounter/[id number] [facility] 2019-09-05 00:00:00 2019-09-05 00:00:00 Office Visit Eri Norman [facility] Encounter/[id number] [facility] 2019-09-05 00:00:00 2019-09-05 00:00:00 Office Visit Eri Norman [facility] Encounter/[id number] [facility] 2019-09-05 00:00:00 2019-09-05 00:00:00 Office Visit Paula Melo Tamika Foster, Jonah Moxey, Co Shanna [facility] Encounter/[id number] [facility] 2019-08-26 19:35:00 2019-08-26 21:27:00 Departed Emergency Room 1 BONNIEREAL [facility] [id number] [facility] 2019-07-05 00:00:00 2019-07-05 00:00:00 Office Visit Juan Luis Bennett [facility] Encounter/[id number] [facility] 2019-06-27 00:00:00 2019-06-27 00:00:00 Office Visit Paula Melo [facility]/[id number] [facility] 2019-06-22 00:00:00 2019-06-22 00:00:00 Office Visit Vannessa Martin [facility] Encounter/[id number] [facility] 2019-02-24 00:00:00 2019-02-24 00:00:00 Office Visit Eri Norman [facility] Encounter/[id number] [facility] 2019-02-23 00:00:00 2019-02-23 00:00:00 Office Visit Fina Greene [facility] LC Encounter/[id number] [facility] 2019-02-22 00:00:00 2019-02-22 00:00:00 Office Visit Beth Alvares Paula Norman [facility] Encounter/[id number] [facility] 2019-02-18 00:00:00 2019-02-18 00:00:00 Office Visit Eri Norman [facility] LC Encounter/[id number] [facility] 2019-02-15 00:00:00 2019-02-15 00:00:00 Office Visit Eri Norman [facility] Encounter/[id number] [facility] 2019-02-01 00:00:00 2019-02-01 00:00:00 Office Visit Vannessa Martin [facility] LC Encounter/[id number] [facility] 2019-02-01 00:00:00 2019-02-01 00:00:00 Office Visit Jessica Thompson Nazjely [facility] Encounter/[id number] [facility] 2019-02-01 00:00:00 2019-02-01 00:00:00 Office Visit Eri Norman [facility] LC Encounter/[id number] [facility] 2019-02-01 00:00:00 2019-02-01 00:00:00 Office Visit Eri Norman [facility] Encounter/[id number] [facility] 2019-02-01 00:00:00 2019-02-01 00:00:00 Office Visit Paula Melo Loraina [facility] LC Encounter/[id number] [facility] 2019-01-29 00:00:00 2019-01-29 00:00:00 Office Visit Paula Melo Nazjely Lewis, Shaniqua [facility] LC Encounter/[id number] [facility] 2019-01-25 00:00:00 2019-01-25 00:00:00 Office Visit Eri Norman [facility] Encounter/[id number] [facility] 2019-01-25 00:00:00 2019-01-25 00:00:00 Office Visit Emerson Eri crouch [facility] LC Encounter/[id number] [facility] 2019-01-25 00:00:00 2019-01-25 00:00:00 Office Visit Vannessa Martin [facility] Encounter/[id number] [facility] 2019-01-10 00:00:00 2019-01-10 00:00:00 Office Visit Anh Samayoa [facility] LC Encounter/[id number] [facility] 2019-01-09 00:00:00 2019-01-09 00:00:00 Office Visit Linda Sotelo Miryam [facility] Encounter/[id number] [facility] 2018-12-20 00:00:00 2018-12-20 00:00:00 Office Visit Josette Archuleta [facility] Encounter/[id number] [facility] 2018-12-19 00:00:00 2018-12-19 00:00:00 Office Visit Ramiro Santos Tanisha [facility] Encounter/[id number] [facility] 2018-12-15 00:00:00 2018-12-15 00:00:00 Office Visit Eri Norman [facility] LC Encounter/[id number] [facility] 2018-12-15 00:00:00 2018-12-15 00:00:00 Office Visit Paula Melo Dulce Garcia, Nazjely [facility][id number] [facility]-11-25 00:00:00 2018-11-25 00:00:00 Office Visit Vannessa Martin [facility] Encounter/[id number] [facility] 2018-10-25 00:00:00 2018-10-25 00:00:00 Office Visit Angle Rossi [facility] LC Encounter/[id number] [facility] 2018-10-20 00:00:00 2018-10-20 00:00:00 Office Visit [place] Inez [facility] Encounter/[id number] [facility] 2018-10-20 00:00:00 2018-10-20 00:00:00 Office Visit Anh Samayoa LC [facility] Encounter/[id number] [facility] 2018-10-03 00:00:00 2018-10-03 00:00:00 Office Visit Jesus Gonzalez LC [facility] Encounter/[id number] [facility] 2018-09-19 00:00:00 2018-09-19 00:00:00 Office Visit Shae Malin LC [facility] Encounter/[id number] [facility] 2018-09-19 00:00:00 2018-09-19 00:00:00 Office Visit Zari Manning do LC [facility] Encounter/[id number] [facility] 2018-09-19 00:00:00 2018-09-19 00:00:00 Office Visit Status, Fax L[facility] Encounter/[id number] [facility] 2018-09-19 00:00:00 2018-09-19 00:00:00 Office Visit Status, Fax L[facility] Encounter/[id number] [facility] 2018-09-19 00:00:00 2018-09-19 00:00:00 Office Visit Jennifer Hager Armando LC [facility] Encounter/[id number] [facility] 2018-09-19 00:00:00 2018-09-19 00:00:00 Office Visit Status, Fax L[facility] Encounter/[id number] [facility] 2018-09-19 00:00:00 2018-09-19 00:00:00 Office Visit Status, Fax L[facility] Encounter/[id number] [facility] 2018-09-19 00:00:00 2018-09-19 00:00:00 Office Visit Status, Fax L[facility] Encounter/[id number] [facility] 2018-09-19 00:00:00 2018-09-19 00:00:00 Office Visit Jennifer Hager Armando [facility] LC Encounter/[id number] [facility] 2018-09-19 00:00:00 2018-09-19 00:00:00 Office Visit Shae Malin satnam LC LC Encounter/[id number] [facility] 2018-09-19 00:00:00 2018-09-19 00:00:00 Office Visit Shae Malin satnam [facility] LC Encounter/[id number] [facility] 2018-09-19 00:00:00 2018-09-19 00:00:00 Office Visit Jennifer Hager Carolina Robinson, Anh Kumar Kimberly Diego-Molina, Aamir Solano [facility] LC Encounter/[id number] [facility] 2018-09-03 00:00:00 2018-09-03 00:00:00 Office Visit Lilo Erazo [facility] LC Encounter/[id number] [facility] 2018-08-29 00:00:00 2018-08-29 00:00:00 Office Visit Josette Archuleta [facility] LC Encounter/[id number] [facility] 2018-08-24 00:00:00 2018-08-24 00:00:00 Office Visit Ramiro Santos Inez [facility] Encounter/[id number] [facility] 2018-08-22 00:00:00 2018-08-22 00:00:00 Office Visit Ramiro Rizzo [facility] LC Encounter/[id number] [facility] 2018-07-04 00:00:00 2018-07-04 00:00:00 Office Visit Ramiro Rizzo LC Encounter/[id number] [facility] 2018-07-04 00:00:00 2018-07-04 00:00:00 Office Visit Ramiro Santos Erron [facility] LC Encounter/[id number] [facility] 2018-06-20 00:00:00 2018-06-20 00:00:00 Office Visit Martin, Vannessa gianfranco [facility] Encounter/[id number] [facility] 2018-06-07 00:00:00 2018-06-07 00:00:00 Office Visit Beatris Escobedo L[facility] Encounter/[id number] [facility] 2018-05-23 00:00:00 2018-05-23 00:00:00 Office Visit Freddie Hector quijanoAlice [facility] Encounter/[id number] [facility] 2018-05-10 00:00:00 2018-05-10 00:00:00 Office Visit Janice Rich [facility] Encounter/[id number] [facility] 2018-05-09 00:00:00 2018-05-09 00:00:00 Office Visit Jessica Thompson Ethel [facility] Encounter/[id number] [facility] 2018-05-09 00:00:00 2018-05-09 00:00:00 Office Visit Vannessa Martin [facility] Encounter/[id number] [facility] 2018-05-09 00:00:00 2018-05-09 00:00:00 Office Visit Jessica Thompson Norma De La Cruz, Jasmin Linzy, Ethel [facility] Encounter/[id number] [facility] 2018-04-18 00:00:00 2018-04-18 00:00:00 Office Visit Vannessa Martin [facility] Encounter/[id number] [facility] 2018-04-18 00:00:00 2018-04-18 00:00:00 Office Visit Vannessa Martin [facility] Encounter/[id number] [facility] 2018-04-18 00:00:00 2018-04-18 00:00:00 Office Visit Vannessa Martin L[facility] Encounter/[id number] [facility] 2018-04-11 00:00:00 2018-04-11 00:00:00 Office Visit Vannessa Martin LC [facility] Encounter/[id number] [facility] 2018-04-09 00:00:00 2018-04-09 00:00:00 Office Visit Vannessa Martin L[facility] Encounter/[id number] [facility] 2018-02-01 00:00:00 2018-02-01 00:00:00 Office Visit Josette Archuleta [facility] Encounter/[id number] [facility] 2018-01-20 00:00:00 2018-01-20 00:00:00 Office Visit Vannessa Martin [facility] Encounter/[id number] [facility] 2018-01-20 00:00:00 2018-01-20 00:00:00 Office Visit Jessica Thompson, Aydee Bryson, Ana Laura Grubbs LC [facility] Encounter/[id number] [facility] 2018-01-14 00:00:00 2018-01-14 00:00:00 Office Visit Fina Greene LC [facility] Encounter/[id number] [facility] 2018-01-13 00:00:00 2018-01-13 00:00:00 Office Visit Ramiro Santos Nohemi LC LC Encounter/[id number] [facility] 2018-01-11 00:00:00 2018-01-11 00:00:00 Office Visit Ramiro Rizzo [facility] LC Encounter/[id number] [facility] 2017-10-25 00:00:00 2017-10-25 00:00:00 Office Visit Ramiro Rizzo [facility] LC Encounter/[id number] [facility] 2017-10-25 00:00:00 2017-10-25 00:00:00 Office Visit Ramiro Rizzo [facility] LC Encounter/[id number] [facility] 2017-10-25 00:00:00 2017-10-25 00:00:00 Office Visit Ramiro Rizzo [facility] LC Encounter/[id number] [facility] 2017-10-25 00:00:00 2017-10-25 00:00:00 Office Visit Ramiro Santos Zachary Arellano LC LC Encounter/[id number] [facility] 2017-10-20 00:00:00 2017-10-20 00:00:00 Office Visit Ramiro Santos Peyton Law LC [facility] Encounter/[id number] [facility] 2017-10-05 00:00:00 2017-10-05 00:00:00 Office Visit Ramiro Rizzo [facility] LC Encounter/[id number] [facility] 2017-10-05 00:00:00 2017-10-05 00:00:00 Office Visit Ramiro Rizzo LC Encounter/[id number] [facility] 2017-08-16 00:00:00 2017-08-16 00:00:00 Office Visit Ramiro Rizzo [facility] LC Encounter/[id number] [facility] 2017-08-16 00:00:00 2017-08-16 00:00:00 Office Visit Ramiro Rizzo [facility] LC Encounter/[id number] [facility] 2017-08-16 00:00:00 2017-08-16 00:00:00 Office Visit Ramiro Rizzo LC Encounter/[id number] [facility] 2017-08-04 00:00:00 2017-08-04 00:00:00 Office Visit Status, Fax L[facility] Encounter/[id number] [facility] 2017-08-04 00:00:00 2017-08-04 00:00:00 Office Visit Status, Fax L[facility] Encounter/[id number] [facility] 2017-08-04 00:00:00 2017-08-04 00:00:00 Office Visit Status, Fax L[facility] Encounter/[id number] [facility] 2017-08-02 00:00:00 2017-08-02 00:00:00 Office Visit Ramiro Rizzo [facility] Encounter/[id number] [facility] 2017-08-02 00:00:00 2017-08-02 00:00:00 Office Visit Ramiro Rizzo [facility] LC Encounter/[id number] [facility] 2017-08-02 00:00:00 2017-08-02 00:00:00 Office Visit Ramiro Santos Hilda Callis, Erron Robinson, Tamika [facility] LC Encounter/[id number] [facility] 2017-05-04 00:00:00 2017-05-04 00:00:00 Office Visit Rafael Lacey [facility] LC Encounter/[id number] [facility] 2017-04-13 00:00:00 2017-04-13 00:00:00 Office Visit Ramiro Santos, Dunia Rodriguez, Karyna Ragsdale, Karen العراقي [facility] LC Encounter/[id number] [facility] 2017-03-31 00:00:00 2017-03-31 00:00:00 Office Visit Ramiro Rizzo [facility] LC Encounter/[id number] [facility] 2017-03-29 00:00:00 2017-03-29 00:00:00 Office Visit Ramiro Rizzo [facility] LC Encounter/[id number] [facility] 2017-03-29 00:00:00 2017-03-29 00:00:00 Office Visit Ramiro iRzzo [facility] Encounter/[id number] [facility] 2017-03-29 00:00:00 2017-03-29 00:00:00 Office Visit Ramiro Santos Erron [facility] Encounter/[id number] [facility] 2017-03-03 00:00:00 2017-03-03 00:00:00 Office Visit Mary Son [facility] LC Encounter/[id number] [facility] 2017-03-02 00:00:00 2017-03-02 00:00:00 Office Visit Ramiro Santos Lori [facility] Encounter/[id number] [facility] 2016-12-10 00:00:00 2016-12-10 00:00:00 Office Visit Ramiro Rizzo [facility] LC Encounter/[id number] [facility] 2016-12-07 00:00:00 2016-12-07 00:00:00 Office Visit Ramiro Rizzo LC Encounter/[id number] [facility] 2016-12-07 00:00:00 2016-12-07 00:00:00 Office Visit Ramiro Rizzo [facility] LC Encounter/[id number] [facility] 2016-12-07 00:00:00 2016-12-07 00:00:00 Office Visit Ramiro Santos Nazjely [facility] LC Encounter/[id number] [facility] 2016-09-07 00:00:00 2016-09-07 00:00:00 Office Visit Ramiro Rizzo [facility] Encounter/[id number] [facility] 2016-09-07 00:00:00 2016-09-07 00:00:00 Office Visit Ramiro Rizzo [facility] Encounter/[id number] [facility] 2016-09-07 00:00:00 2016-09-07 00:00:00 Office Visit Ramiro Santos Janell [facility] Encounter/[id number] [facility] 2016-09-04 00:00:00 2016-09-04 00:00:00 Office Visit Demian Givens [facility] Encounter/[id number] [facility] 2016-08-31 00:00:00 2016-08-31 00:00:00 Office Visit Anna Jose [facility] Encounter/[id number] [facility] 2016-08-30 00:00:00 2016-08-30 00:00:00 Office Visit Anna Jose [facility] Encounter/[id number] [facility] 2016-08-24 00:00:00 2016-08-24 00:00:00 [facility][id number] [facility] 2016-08-24 00:00:00 2016-08-24 00:00:00 [facility]/[id number] [facility] 2016-05-26 00:00:00 2016-05-26 00:00:00 [facility]/[id number] [facility] 2016-05-26 00:00:00 2016-05-26 00:00:00 [facility][id number] [facility] 2016-05-12 00:00:00 2016-05-12 00:00:00 [facility]/[id number] [facility] 2016-02-10 00:00:00 2016-02-10 00:00:00 Office Visit Ramiro Rizzo [facility] Encounter/[id number] [facility] 2016-02-10 00:00:00 2016-02-10 00:00:00 Office Visit Ramiro Rizzo [facility] Encounter/[id number] [facility] 2016-02-10 00:00:00 2016-02-10 00:00:00 Office Visit Ramiro Santos Erron [facility] Encounter/[id number] [facility] 2016-02-03 00:00:00 2016-02-03 00:00:00 Office Visit Ramiro Rizzo [facility] Encounter/[id number] [facility] 2016-01-27 00:00:00 2016-01-27 00:00:00 Office Visit Ramiro Rizzo [facility] Encounter/[id number] [facility] 2016-01-27 00:00:00 2016-01-27 00:00:00 Office Visit Av Tinajero [facility] Encounter/[id number] [facility] 2015-11-21 00:00:00 2015-11-21 00:00:00 [facility][id number] [facility] 2015-11-21 00:00:00 2015-11-21 00:00:00 Office Visit Ramiro Santos Erron [facility] Encounter/[id number] [facility] 2015-10-28 00:00:00 2015-10-28 00:00:00 Office Visit Ramiro Rizzo [facility] Encounter/[id number] [facility] 2015-10-28 00:00:00 2015-10-28 00:00:00 Office Visit Ramiro Rizzo [facility] Encounter/[id number] [facility] 2015-10-28 00:00:00 2015-10-28 00:00:00 [facility]/[id number] [facility] 2015-10-28 00:00:00 2015-10-28 00:00:00 Office Visit Ramiro Rizzo [facility] Encounter/[id number] [facility] 2015-10-28 00:00:00 2015-10-28 00:00:00 Office Visit Ramiro Santos Erron [facility] Encounter/[id number] [facility] 2015-10-17 00:00:00 2015-10-17 00:00:00 Office Visit Ramiro Rizzo [facility] Encounter/[id number] [facility] 2015-10-14 00:00:00 2015-10-14 00:00:00 Office Visit Ramiro Rizzo [facility] Encounter/[id number] [facility] 2015-10-14 00:00:00 2015-10-14 00:00:00 Office Visit Ramiro Rizzo [facility] Encounter/[id number] [facility] 2015-10-14 00:00:00 2015-10-14 00:00:00 Office Visit Ramiro Rizzo [facility] Encounter/[id number] [facility] 2015-10-14 00:00:00 2015-10-14 00:00:00 Office Visit Esther Reed viviane [facility] Encounter/[id number] [facility] 2015-10-14 00:00:00 2015-10-14 00:00:00 Office Visit Esther Reed viviane [facility] Encounter/[id number] [facility] 2015-10-14 00:00:00 2015-10-14 00:00:00 Office Visit Ramiro Rizzo [facility] Encounter/[id number] [facility] 2015-10-14 00:00:00 2015-10-14 00:00:00 Office Visit Ramiro Santos Erron [facility] Encounter/[id number] [facility] 2015-10-14 00:00:00 2015-10-14 00:00:00 Office Visit Ramiro Rizzo [facility] Encounter/[id number] [facility] 2015-09-24 00:00:00 2015-09-24 00:00:00 Office Visit Av Tinajero [facility] Encounter/[id number] [facility] 2015-09-24 00:00:00 2015-09-24 00:00:00 Office Visit TinajeroAv mann [facility] Encounter/[id number] [facility] Results Test Description Test Time Test Comments Results Result Comments Source CT ABDOMEN/PELVIS W 2020-09-09 20:20:00 [facility] CENTERName: PRISCILLA ZAMUDIO : 1965 Sex: M [facility] [address] [address] Patient Name: PRISCILAL ZAMUDIO MR #: [id number] : 1965 Age/Sex: 55/M Req #: [id number] Adm Physician: Ordered by: RASHI STORM DO Report #: [id number] Location: ER Room/Bed: Procedure: [id number] CT/CT ABDOMEN/PELVIS W Exam Date: 09/09/20 Exam [...] TO: RASHI STORM DO TESTICULAR 2020-09-09 18:45:00 [facility] CENTERName: PRISCILLA ZAMUDIO : 1965 Sex: M [address] [address] Patient Name: PRISCILLA ZAMUDIO MR #: [id number] : 1965 Age/Sex: 55/M Req #: [id number] [facility] Physician: SAILAJA MYERS MD Ordered by: RASHI STORM DO Report #: [id number] Location: MED/SURG3 Room/Bed: [facility] Procedure: [id number] US/US TESTICULAR Exam Date: 09/09/20 Exam Time: [...] COPY TO: RASHI STORM DO TESTICULAR DOPPLER [facility] 2020-09-09 18:45:00 [facility] : 1965 Sex: M [facility] [address] [place] [address] Patient Name: PRISCILLA ZAMUDIO MR #: [id number] : 1965 Age/Sex: 55/M Req #: [id number] [facility] Physician: SAILAJA MYERS MD Ordered by: RASHI STORM DO Report #: [id number] Location: MED/SURG3 Room/Bed: 289 Procedure: [id number] US/US TESTICULAR DOPPLER LTD Exam Date: 09/09/20 [...] total cells, bloo d (test code = 97997-9) 1 % [facility], eoqruoye9456-03-33 12:37:00* Test Item Value Reference Range Interpretation Comments basophil count, absolute (test code = 81093-7) 0.1 x10E3/uL 0.0-0.2 [facility] HealthEosinophil Absolute Rxbpl4166-97-40 12:37:00* Test Item Value Reference Range Interpretation Comments Eosinophil Absolute Count (test code = 92620-4) 0.5 X10E3/UL 0.0-0. 4 H [facility] Healthmonocyte count, blood, skukfaigs6514-24-68 12:37:00* Test Item Value Reference Range Interpretation Comments monocyte count, blood, automated (test code = 742-7) 1.4 X10E3/UL 0 .1-0.9 H [facility], blood, cfblbnnyo3516-35-15 12:37:00* Test Item Value Reference Range Interpretation Comments lymphocyte count, blood, automated (test code = 731-0) 1.4 X10E3/UL 0.7-3.1 [facility]Absolute Dhyuvnfecqi6462-64-51 12:37:00* Test Item Value Reference Range Interpretation Comments Absolute Neutrophils (test code = 93712-4) 10.8 X10E3/UL 1.4-7.0 H [facility] Healthbasophils as percent of blood uobdnxurqy0856-68-49 12:37:00* Test Item Value Reference Range Interpretation Comments basophils as percent of blood leukocytes (test code = 707-0) 1 % [facility] Healtheosinophils as percent of blood ffroiufniy0488-35-36 12:37:00* Test Item Value Reference Range Interpretation Comments eosinophils as percent of blood leukocytes (test code = 713-8) 3 % [facility] Healthmonocytes as percent of blood oyltnzwqdi2907-74-69 12:37:00* Test Item Value Reference Range Interpretation Comments monocytes as percent of blood leukocytes (test code = 5905-5) 10 % [facility] as percent of blood rxwkqjjgbm5014-14-67 12:37:00* Test Item Value Reference Range Interpretation Comments lymphocytes as percent of blood leukocytes (test code = 736-9) 10 % [facility] Healthneutrophils as percent of blood suppdzgtzu9389-82-42 12:37:00* Test Item Value Reference Range Interpretation Comments neutrophils as percent of blood leukocytes (test code = 770-8) 75 % [facility] Southplatelet mggdt6338-23-79 12:37:00* Test Item Value Reference Range Interpretation Comments platelet count (test code = 777-3) 415 X10E3/UL 150-450 [facility]red blood cell distribution oxifh8055-85-42 12:37:00* Test Item Value Reference Range Interpretation Comments red blood cell distribution width (test code = 788-0) 13.0 % 11.6-15.4 [facility] corpuscular hemoglobin concentration, NRL2254-17-31 12:37:00* Test Item Value Reference Range Interpretation Comments mean corpuscular hemoglobin concentration, RBC (test code = 786-4) 33.2 G/DL 31.5-35.7 [facility] corpuscular hemoglobin, ONO6276-90-94 12:37:00* Test Item Value Reference Range Interpretation Comments mean corpuscular hemoglobin, RBC (test code = 785-6) 30.4 pg 2 6.6-33.0 [facility] corpuscular volume, TTA9626-22-33 12:37:00* Test Item Value Reference Range Interpretation Comments mean corpuscular volume, RBC (test code = 787-2) 91 fL 79-97 [facility]ocrit, ssknc4807-81-45 12:37:00* Test Item Value Reference Range Interpretation Comments hematocrit, blood (test code = 4544-3) 27.7 % 37.5-51.0 L [facility]hemoglobin, xqbzb7235-84-45 12:37:00* Test Item Value Reference Range Interpretation Comments hemoglobin, blood (test code = 718-7) 9.2 g/dL 13.0-17.7 L [facility] Southerythrocyte (RBC) mwwwa8248-98-93 12:37:00* Test Item Value Reference Range Interpretation Comments erythrocyte (RBC) count (test code = 789-8) 3.03 X10E6/UL 4.14-5.80 L [facility] Southleukocyte count, qswdp4173-65-94 12:37:00* Test Item Value Reference Range Interpretation Comments leukocyte count, blood (test code = 6690-2) 14.2 X10E3/UL 3.4-10.8 H [facility] Southblood glucose, zmqfgg3740-19-31 09:44:21* Test Item Value Reference Range Interpretation Comments blood glucose, random (test code = 2339-0) 104 mg/dL [facility] Southwound qjnyqom7992-31-12 11:48:00* Test Item Value Reference Range Interpretation Comments wound culture (test code = 6462-6) Final report [facility]vitamin D 25-hydroxy, wjapy0623-31-10 08:48:00* Test Item Value Reference Range Interpretation Comments vitamin D 25-hydroxy, serum (test code = 60885-6) 31.7 ng/mL 30.0 -100.0 [facility]hemoglobin A1C, blood, as % of total rhvofjyfjh2619-29-06 08:48:00* Test Item Value Reference Range Interpretation Comments hemoglobin A1C, blood, as % of total hemoglobin (test code = 4548-4) 5.2 % 4.8-5.6 [facility]microalbumin/creatinine ratio, bvuht2289-83-38 08:48:00* Test Item Value Reference Range Interpretation Comments microalbumin/creatinine ratio, urine (test code = 47237-4) 6082 MG/G CREAT 0-29 H [facility]microalbumin/total urine vbebxa0650-67-48 08:48:00* Test Item Value Reference Range Interpretation Comments microalbumin/total urine volume (test code = 27863-3) 3016.6 mg/L [facility]creatinine, random, khqbt9223-33-72 08:48:00* Test Item Value Reference Range Interpretation Comments creatinine, random, urine (test code = 2161-8) 49.6 mg/dL [facility] SouthLDL cholesterol, vdbzq2079-57-24 08:48:00* Test Item Value Reference Range Interpretation Comments LDL cholesterol, serum (test code = 2089-1) 32 mg/dL 0-99 [facility] low density xxftidqwpabb1328-55-84 08:48:00* Test Item Value Reference Range Interpretation Comments very low density lipoproteins (test code = 2091-7) 18 mg/dL 5-4 0 [facility]HDL cholesterol, rvayg5217-61-47 08:48:00* Test Item Value Reference Range Interpretation Comments HDL cholesterol, serum (test code = 2085-9) 62 mg/dL >39 [facility] Southtriglyceride, serum, wmfmwbh1463-75-28 08:48:00* Test Item Value Reference Range Interpretation Comments triglyceride, serum, fasting (test code = 2571-8) 94 mg/dL 0-14 9 [facility]cholesterol, lnalk9778-99-86 08:48:00* Test Item Value Reference Range Interpretation Comments cholesterol, serum (test code = 2093-3) 112 mg/dL 100-199 [facility]bacteria, urine aiwtszovwl3909-02-74 08:48:00* Test Item Value Reference Range Interpretation Comments bacteria, urine microscopy (test code = 5769-5) None seen None s een/Few [facility] Southepithelial cells, fklze9138-88-92 08:48:00* Test Item Value Reference Range Interpretation Comments epithelial cells, urine (test code = 5787-7) 0-10 0-10 [facility] SouthRBC, Qafmv2184-92-48 08:48:00* Test Item Value Reference Range Interpretation Comments RBC, Urine (test code = 20053-3) 3-10 /hpf 0-2 A [facility] urine on rdthkhnras7116-54-20 08:48:00* Test Item Value Reference Range Interpretation Comments WBC urine on microscopy (test code = 1016) 0-5 /hpf 0-5 [facility]urinalysis, microscopic ccpnvuykdng7119-14-81 08:48:00* Test Item Value Reference Range Interpretation Comments urinalysis, microscopic examination (test code = 98826-3) See below : [facility] Southnitrate, qwgvq9299-15-84 08:48:00* Test Item Value Reference Range Interpretation Comments nitrate, urine (test code = 14980-8) Negative Negative [facility] Southurobilinogen, urine, semiquantitative (dipstick) 2020-08-14 08:48:00* Test Item Value Reference Range Interpretation Comments urobilinogen, urine, semiquantitative (dipstick) (test code = 5818-0) 0.2 0.2-1.0 [facility]bilirubin, mabeg2602-76-11 08:48:00* Test Item Value Reference Range Interpretation Comments bilirubin, urine (test code = 5770-3) Negative Negative [facility] Southketones, urine, by test lwfwp5616-81-03 08:48:00* Test Item Value Reference Range Interpretation Comments ketones, urine, by test strip (test code = 5797-6) Negative Neg ative [facility] Southglucose, urine, ejxqfyhemnsiorgy2958-54-90 08:48:00* Test Item Value Reference Range Interpretation Comments glucose, urine, semiquantitative (test code = 5792-7) Trace Negative A [facility] Southprotein, urine, semiquantitative (dipstick)2020-08-14 08:48:00* Test Item Value Reference Range Interpretation Comments protein, urine, semiquantitative (dipstick) (test code = 175 3-3) 3+ Negative/Trace A [facility] Southleukocyte esterase, urine, by vbqpcpcg4110-43-92 08:48:00 * Test Item Value Reference Range Interpretation Comments leukocyte esterase, urine, by dipstick (test code = 5799-2) Negativ e Negative [facility] Southappearance, roumd3357-64-27 08:48:00* Test Item Value Reference Range Interpretation Comments appearance, urine (test code = 5767-9) Clear Clear [facility] Healthurine wthsu7607-36-28 08:48:00* Test Item Value Reference Range Interpretation Comments urine color (test code = 5778-6) Yellow Yellow [facility] SouthpH, urine, mtnvujsjgvowrheg7146-95-27 08:48:00* Test Item Value Reference Range Interpretation Comments pH, urine, semiquantitative (test code = 5803-2) >=9.0 5.0-7 .5 A [facility] Southspecific gravity, body fyfwa0914-75-77 08:48:00* Test Item Value Reference Range Interpretation Comments specific gravity, body fluid (test code = 2964-5) 1.016 1.00 5-1.030 [facility] Southalanine aminotransferase (SGPT), mmzlu6658-24-96 08:48:00 * Test Item Value Reference Range Interpretation Comments alanine aminotransferase (SGPT), serum (test code = 1742-6) 36 1/L 0-44 [facility] Southaspartate aminotransferase (SGOT), yspzf8799-12-62 08:48:00* Test Item Value Reference Range Interpretation Comments aspartate aminotransferase (SGOT), serum (test code = 1920-8) 53 1/ L 0-40 H [facility] Southalkaline phosphatase, amxom5325-07-69 08:48:00* Test Item Value Reference Range Interpretation Comments alkaline phosphatase, serum (test code = 1783-0) 481 1/L 39-11 7 H [facility] Southbilirubin, serum, nxgfm6046-90-70 08:48:00* Test Item Value Reference Range Interpretation Comments bilirubin, serum, total (test code = 1975-2) 0.4 mg/dL 0.0-1.2 [facility] Southalbumin/globulin ratio, uxhli5113-47-04 08:48:00* Test Item Value Reference Range Interpretation Comments albumin/globulin ratio, serum (test code = 1759-0) 0.8 1.2 -2.2 L [facility] Healthglobulin, njiap6030-14-96 08:48:00* Test Item Value Reference Range Interpretation Comments globulin, serum (test code = 2336-6) 4.4 1.5-4.5 [facility] Healthalbumin, awkxr4582-08-37 08:48:00* Test Item Value Reference Range Interpretation Comments albumin, serum (test code = 1751-7) 3.4 g/dL 3.8-4.9 L [facility] Southprotein, total, zwutz6097-40-48 08:48:00* Test Item Value Reference Range Interpretation Comments protein, total, serum (test code = 2885-2) 7.8 g/dL 6.0-8.5 [facility] Southcalcium, aftwa9676-79-31 08:48:00* Test Item Value Reference Range Interpretation Comments calcium, serum (test code = 2000-8) 8.5 mg/dL 8.7-10.2 L [facility] Southcarbon dioxide, venous wuscs6867-68-39 08:48:00* Test Item Value Reference Range Interpretation Comments carbon dioxide, venous blood (test code = 2027-1) 27 mmol/L 20-2 9 [facility] Southchloride, vffsp1810-10-46 08:48:00* Test Item Value Reference Range Interpretation Comments chloride, serum (test code = 2075-0) 97 mmol/L 96-106 [facility] Healthpotassium, yfbog5159-24-80 08:48:00* Test Item Value Reference Range Interpretation Comments potassium, serum (test code = 2823-3) 4.0 mmol/L 3.5-5.2 [facility] Healthsodium, zhsvr1809-61-45 08:48:00* Test Item Value Reference Range Interpretation Comments sodium, serum (test code = 2951-2) 139 mmol/L 134-144 [facility] Southurea nitrogen/creatinine ratio, jhrzx6259-80-99 08:48:00 * Test Item Value Reference Range Interpretation Comments urea nitrogen/creatinine ratio, serum (test code = 3097-3) 5 9-20 L [facility] HealtheGFR if Qzxeraik7718-03-55 08:48:00* Test Item Value Reference Range Interpretation Comments eGFR if (test code = 53713-1) 13 mL/min/((173/100) .m2) >59 L [facility] SouthEstimated Glomerular Filtration Rate (calc)2020-08-14 08:48:00* Test Item Value Reference Range Interpretation Comments Estimated Glomerular Filtration Rate (calc) (test code = 96607-8) 11 mL/min/((173/100).m2) >59 L [facility] Southcreatinine, oyfap8443-86-77 08:48:00* Test Item Value Reference Range Interpretation Comments creatinine, serum (test code = 2160-0) 5.41 mg/dL 0.76-1.27 H [facility] Southurea nitrogen, aimwo6001-19-24 08:48:00* Test Item Value Reference Range Interpretation Comments urea nitrogen, blood (test code = 3094-0) 28 mg/dL 6-24 H [facility] Southblood glucose, ivjzde3419-37-61 08:48:00* Test Item Value Reference Range Interpretation Comments blood glucose, random (test code = 2339-0) 47 mg/dL 65-99 L [facility] Southimmature granulocytes, percentage of total cells, blood 2020-08-14 08:48:00* Test Item Value Reference Range Interpretation Comments immature granulocytes, percentage of total cells, bloo d (test code = 45184-6) 0 % [facility] Southbasophil count, xglpowes0093-28-13 08:48:00* Test Item Value Reference Range Interpretation Comments basophil count, absolute (test code = 16964-5) 0.1 x10E3/uL 0.0-0.2 [facility] HealthEosinophil Absolute Mzpef9891-13-42 08:48:00* Test Item Value Reference Range Interpretation Comments Eosinophil Absolute Count (test code = 38191-0) 0.5 X10E3/UL 0.0-0. 4 H [facility] Healthmonocyte count, blood, ywxrskixb9863-69-35 08:48:00* Test Item Value Reference Range Interpretation Comments monocyte count, blood, automated (test code = 742-7) 1.3 X10E3/UL 0 .1-0.9 H [facility] Southlymphocyte count, blood, heuxhjtvu8619-87-87 08:48:00* Test Item Value Reference Range Interpretation Comments lymphocyte count, blood, automated (test code = 731-0) 1.1 X10E3/UL 0.7-3.1 [facility] SouthAbsolute Aztxboblayz5169-91-36 08:48:00* Test Item Value Reference Range Interpretation Comments Absolute Neutrophils (test code = 53583-3) 11.4 X10E3/UL 1.4-7.0 H [facility] Healthbasophils as percent of blood prrnmjytjd4218-76-01 08:48:00* Test Item Value Reference Range Interpretation Comments basophils as percent of blood leukocytes (test code = 707-0) 1 % [facility] Southeosinophils as percent of blood ubqiyqaaez9395-21-03 08:48:00* Test Item Value Reference Range Interpretation Comments eosinophils as percent of blood leukocytes (test code = 713-8) 3 % [facility] Healthmonocytes as percent of blood jaeanocwvu1714-31-51 08:48:00* Test Item Value Reference Range Interpretation Comments monocytes as percent of blood leukocytes (test code = 5905-5) 9 % [facility] Southlymphocytes as percent of blood boffljpiky1049-37-65 08:48:00* Test Item Value Reference Range Interpretation Comments lymphocytes as percent of blood leukocytes (test code = 736-9) 8 % [facility] Southneutrophils as percent of blood vbkuzsedxf3669-88-53 08:48:00* Test Item Value Reference Range Interpretation Comments neutrophils as percent of blood leukocytes (test code = 770-8) 79 % [facility] Southplatelet jcxdw2833-61-64 08:48:00* Test Item Value Reference Range Interpretation Comments platelet count (test code = 777-3) 284 X10E3/UL 150-450 [facility] Southred blood cell distribution bvsgp6167-77-15 08:48:00* Test Item Value Reference Range Interpretation Comments red blood cell distribution width (test code = 788-0) 13.1 % 11.6-15.4 [facility] corpuscular hemoglobin concentration, SFV0501-09-34 08:48:00* Test Item Value Reference Range Interpretation Comments mean corpuscular hemoglobin concentration, RBC (test code = 786-4) 33.2 G/DL 31.5-35.7 [facility] corpuscular hemoglobin, VQD9518-40-15 08:48:00* Test Item Value Reference Range Interpretation Comments mean corpuscular hemoglobin, RBC (test code = 785-6) 31.2 pg 2 6.6-33.0 [facility] corpuscular volume, LVG5124-82-06 08:48:00* Test Item Value Reference Range Interpretation Comments mean corpuscular volume, RBC (test code = 787-2) 94 fL 79-97 [facility] Southhematocrit, hxxax8096-19-36 08:48:00* Test Item Value Reference Range Interpretation Comments hematocrit, blood (test code = 4544-3) 28.0 % 37.5-51.0 L [facility] Southhemoglobin, ssymc9270-97-05 08:48:00* Test Item Value Reference Range Interpretation Comments hemoglobin, blood (test code = 718-7) 9.3 g/dL 13.0-17.7 L [facility] Southerythrocyte (RBC) eanvv7166-00-07 08:48:00* Test Item Value Reference Range Interpretation Comments erythrocyte (RBC) count (test code = 789-8) 2.98 X10E6/UL 4.14-5.80 L [facility] Southleukocyte count, xsnnq9787-93-65 08:48:00* Test Item Value Reference Range Interpretation Comments leukocyte count, blood (test code = 6690-2) 14.3 X10E3/UL 3.4-10.8 H [facility] blood glucose measurement by glucometer (mass/volume)2020-08-10 15:07:00* Test Item Value Reference Range Interpretation Comments Bedside Glucose (test code = 36448-0) 170 70-120 Meter ID: [id number] [facility] [facility]ust[facility] gastrointestinal hemoglobin ymiaavhdy5945-81-03 05:50:00* Test Item Value Reference Range Interpretation Comments Stool Occult Blood (test code = 2335-8) POSITIVE NEGATIVE [facility] leukocytes automated count (number/volume)2020-08-09 05:35:00* Test Item Value Reference Range Interpretation Comments White Blood Count (test code = 6690-2) 12.06 4.8-10.8 [facility] erythrocytes automated count (number/volume)2020-08-09 05:35:00* Test Item Value Reference Range Interpretation Comments Red Blood Count (test code = 789-8) 3.05 4.3-5.7 [facility] HospitalBlood hemoglobin measurement (moles/volume)2020-08-09 05:35:00* Test Item Value Reference Range Interpretation Comments Hemoglobin (test code = 30059-4) 9.2 14.0-18.0 [facility] HospitalAutomated blood hematocrit (volume fraction)2020-08-09 05:35:00* Test Item Value Reference Range Interpretation Comments Hematocrit (test code = 4544-3) 28.6 38.2-49.6 [facility] HospitalAutomated erythrocyte mean corpuscular vongza9169-74-73 05:35:00* Test Item Value Reference Range Interpretation Comments Mean Corpuscular Volume (test code = 787-2) 93.8 81-99 [facility] HospitalAutomated erythrocyte mean corpuscular hemoglobin (mass per erythrocyte)2020-08-09 05:35:00* Test Item Value Reference Range Interpretation Comments Mean Corpuscular Hemoglobin (test code = 785-6) 30.2 28-32 [facility] HospitalAutomated erythrocyte mean corpuscular hemoglobin concentration measurement (mass/volume)2020-08-09 05:35:00* Test Item Value Reference Range Interpretation Comments Mean Corpuscular Hemoglobin Concent (test code = 786-4) 32.2 31-35 [facility] HospitalRDW NjiSr-Rdo7109-04-02 05:35:00* Test Item Value Reference Range Interpretation Comments Red Cell Distribution Width (test code = 27245-9) 13.6 11.7 -14.4 [facility] HospitalAutomated blood platelet count (count/volume)2020-08-09 05:35:00* Test Item Value Reference Range Interpretation Comments Platelet Count (test code = 777-3) 248 140-360 [facility] HospitalAutomated blood segmented neutrophil count as percentage of total hzlrqfwkvz7925-02-43 05:35:00* Test Item Value Reference Range Interpretation Comments Neutrophils (%) (Auto) (test code = 40827-3) 80.3 38.7-80.0 [facility] HospitalAutomated blood lymphocyte count as percentage ot total ufslfdjfyi1888-62-12 05:35:00* Test Item Value Reference Range Interpretation Comments Lymphocytes (%) (Auto) (test code = 736-9) 6.9 18.0-39.1 [facility] HospitalAutomated blood monocyte count as percentage of total wtjxdgqgdv7797-37-86 05:35:00* Test Item Value Reference Range Interpretation Comments Monocytes (%) (Auto) (test code = 5905-5) 8.9 4.4-11.3 [facility] HospitalAutomated blood eosinophil count as percentage of total wpmkmtyeeu0493-59-60 05:35:00* Test Item Value Reference Range Interpretation Comments Eosinophils (%) (Auto) (test code = 713-8) 3.2 0.0-6.0 [facility] HospitalAutomated blood basophil count as percentage of total iahvpbcmhw3463-50-52 05:35:00* Test Item Value Reference Range Interpretation Comments Basophils (%) (Auto) (test code = 706-2) 0.5 0.0-1.0 [facility] HospitalFluoroscopic procedure less than one hour xnabenxd6727-42-98 05:35:00* Test Item Value Reference Range Interpretation Comments IM GRANULOCYTES % (test code = IM GRANULOCYTES %) 0.2 0.0- 1.0 [facility] HospitalAutomated blood neutrophil count 2020-08-09 05:35:00* Test Item Value Reference Range Interpretation Comments Neutrophils # (Auto) (test code = 751-8) 9.7 2.1-6.9 [facility] HospitalBlood lymphocytes count (number/volume) 2020-08-09 05:35:00* Test Item Value Reference Range Interpretation Comments Lymphocytes # (Auto) (test code = 94506-0) 0.8 1.0-3.2 [facility]Bl[facility] monocytes automated count (number/volume)2020-08-09 05:35:00* Test Item Value Reference Range Interpretation Comments Monocytes # (Auto) (test code = 742-7) 1.1 0.2-0.8 [facility] HospitalAutomated blood eosinophil count 2020-08-09 05:35:00* Test Item Value Reference Range Interpretation Comments Eosinophils # (Auto) (test code = 711-2) 0.4 0.0-0.4 [facility] HospitalAutomated blood basophil count (count/volume)2020-08-09 05:35:00* Test Item Value Reference Range Interpretation Comments Basophils # (Auto) (test code = 704-7) 0.1 0.0-0.1 [facility] HospitalFluoroscopic procedure less than one hour klnqhdeu5644-42-94 05:35:00* Test Item Value Reference Range Interpretation Comments Absolute Immature Granulocyte (auto (manuel t code = Absolute Immature Granulocyte (auto) 0.03 0-0.1 [facility] Campuserum or plasma sodium measurement (moles/volume)2020-08-09 05:35:00* Test Item Value Reference Range Interpretation Comments Sodium Level (test code = 2951-2) 136 136-145 [facility] Campuserum or plasma potassium measurement (moles/volume)2020-08-09 05:35:00* Test Item Value Reference Range Interpretation Comments Potassium Level (test code = 2823-3) 3.6 3.5-5.1 [facility] Campuserum or plasma chloride measurement (moles/volume)2020-08-09 05:35:00* Test Item Value Reference Range Interpretation Comments Chloride Level (test code = 2075-0) 100 98-107 [facility] Campuserum or plasma carbon dioxide, total measurement (moles/volume)2020-08-09 05:35:00* Test Item Value Reference Range Interpretation Comments Carbon Dioxide Level (test code = 2028-9) 25 22-29 [facility] Campuserum or plasma anion cvb5448-09-36 05:35:00* Test Item Value Reference Range Interpretation Comments Anion Gap (test code = 35579-7) 14.6 8-16 [facility] Campuserum or plasma urea nitrogen measurement (mass/volume)2020-08-09 05:35:00* Test Item Value Reference Range Interpretation Comments Blood Urea Nitrogen (test code = 3094-0) 33 7-26 [facility] Campuserum or plasma creatinine measurement (mass/volume)2020-08-09 05:35:00* Test Item Value Reference Range Interpretation Comments Creatinine (test code = 2160-0) 6.12 0.72-1.25 [facility] Campuserum or plasma urea nitrogen/creatinine mass pgjgm2237-09-29 05:35:00* Test Item Value Reference Range Interpretation Comments BUN/Creatinine Ratio (test code = 3097-3) 5 6-25 [facility] HospitalEstimated glomerular filtration rate (GFR) ceuoodhcdwjvz6161-10-79 05:35:00* Test Item Value Reference Range Interpretation Comments Estimat Glomerular Filtration Rate (test code = 474099883) 10 >60 Ranges were taken from the National Kidney Disease Education Program and the [facility] [employer] literature.Reference ranges:60 or greater: Grobww92-13 ( for 3 consecutive months): Chronic kidney disease 15 or less: Kidney failureSt. David's Georgetown HospitalGlucose vcgdcbgvois4902-72-54 05:35:00* Test Item Value Reference Range Interpretation Comments Glucose Level (test code = FNI4117) 72 74-118 [facility] Campuserum or plasma calcium measurement (mass/volume)2020-08-09 05:35:00* Test Item Value Reference Range Interpretation Comments Calcium Level (test code = 51135-4) 8.0 8.4-10.2 [facility] HospitalPhosphorus spkiejefngo5090-65-34 05:35:00 * Test Item Value Reference Range Interpretation Comments Phosphorus Level (test code = URC1203) 5.3 2.3-4.7 [facility] Campuserum or plasma magnesium measurement (mass/volume)2020-08-09 05:35:00* Test Item Value Reference Range Interpretation Comments Magnesium Level (test code = 74620-7) 1.8 1.3-2.1 [facility] HospitalMRI BRAIN IB1803-40-65 12:37:00 [facility] [address] [address] Patient Name: PRISCILLA ZAMUDIO MR #: [id number] : 1965 Age/Sex: 55/M Req #: [id number] Adm Physician: JESIKA BANDA MD Ordered by: MEG RIVAS MD Report #: [id number] Location: [facility]/SURG2 Room/Bed: [facility] Procedure: [id number] MRI/MRI BRAIN WO Exam Date: Exam Time: [...] 08/08/201240 COPY TO: MEG MAURO MD IR [id number] 12:12:00 [address] [place] [address] Patient Name: PRISCILLA ZAMUDIO MR #: [id number] : 1965 Age/Sex: 55/M Req #: [id number] Adm Physician: JESIKA BANDA MD Ordered by: ANI POSADA, ANIYA POSADA Report #: [id number] Location: MED/SURG2 Room/Bed: [facility] Procedure: [id number] DX/IR CONSULT Exam Date: Exam Time: REPORT STATUS: Signed Conversion of a nontunneled to tunneled dialysis catheter, right. History: Renal failure. Modality: Fluoroscopy. Sedation: Versed 1 mg and f entanyl 50 mcg was given intravenously for conscious sedation. Vital signs we re monitored throughout the procedure by a nurse, and remained stable. Physici an intra-service time was 30 minutes. Public Health Dentist: Daysi Martin MD. Dictaphone Operator: None. Approach: Right internal jugular vein Estimated [...] by blunt dissection. A 19 cm 14.5 Cameroonian Mahurkar catheter was brought through the tunnel. [...] TO: ANIYA LAW MOD SEDATE INITIAL >5 [id number] 12:12:00 [address] [address] Patient Name: PRISCILLA ZAMUDIO MR #: [id number] : 1965 Age/Sex: 55/M Req #: [id number] Adm Physician: JESIKA BANDA MD Ordered by: WILLIAM MARTIN MD Report #: [id number] Location: MED/SURG2 Room/Bed: [facility] Procedure: [id number] DX/MOD SEDATE IN ITIAL >5 YRS Exam Date: 08/08/20 Exam Time: 1113 REPORT STATUS: Signed Conversion of a nontunneled to tunneled dialysis catheter, right. History: Renal failure. Modality: Fluoroscopy. Sedation: Versed 1 mg and fentanyl 50 mcg was given intravenously for conscious sedation. Vital signs were monitored throughout the procedure by a nurse, and remained stable. Physician intra-service time was 30 minutes. Public Health Dentist: William Martin MD. Dictaphone Operator: None. Approach: Right internal jugular vein Estimated [...] by blunt dissection. A 19 cm 14.5 Cameroonian Mahurkar catheter was brought through the tunnel. [...] tolerated the procedure well and left the [facility] in the same condition. The patient [...] MARTIN MD 1213 COPY TO: NI [facility]ARTIN [facility] [id number] 12:12:00 [address] [place] [address] Patient Name: PRISCILLA ZAMUDIO MR #: [id number] : 1965 Age/Sex: 55/M Req #: [id number] Adm Physician: JESIKA BANDA MD Ordered by: ANI POSADA, ANIYA POSADA Report #: [id number] Location: MED/SURG2 Room/Bed: [facility] Procedure: [id number] LONNIE/ONEAL SHEPPARD CE NT HONORIO PLMT OR [...] stable. Physician intra-service time was 30 minutes. Public Health Dentist: William Martin MD. Dictaphone Operator: None. Approach: Right internal jugular vein Estimated [...] by blunt dissection. A 19 cm 14.5 Cameroonian Mahurkar catheter was brought through the tunnel. [...] TO: ANA LAW TUNNELLED CVC INSERT W/O [id number] 12:12:00 [address] [place] [address] Patient Name: PRISCILLA ZAMUDIO MR #: [id number] : 1965 Age/Sex: 55/M Req #: [id number] Adm Physician: JESIKA BANDA MD Ordered by: ANI POSADA, ANIYA POSADA Report #: [id number] Location: MED/SURG2 Room/Bed: [facility] Procedure: [id number] IR/TUNNELLED CV C INSERT W/O PORT Exam [...] intra-service time was 30 minutes. P michael Tool Design Drafter: William Martin MD. Dictaphone Operator: None. Approach: Right internal jugular vein Estimated [...] by blunt dissection. A 19 cm 14.5 Cameroonian Mahurkar catheter was brought through the tunnel. [...] tolerated the procedure well and left the [facility] in the same condition. The patient [...] ANA LAW Serum nuclear antibody titer by blozbgqqywvpdhguko6428-36-75 08:34:00* Test Item Value Reference Range Interpretation Comments Anti-Nuclear Antibody Screen (test code = 5048-4) Negative . Negative <1:80 Borderline 1:80 Positive > 1:80Performed at: [facility] [id number] Director: Daniel Huynh MD, Phone: [phone]. David's Georgetown HospitalQualitative serum rapid plasma reagin (RPR) skzr7508-03-06 08:34:00* Test Item Value Reference Range Interpretation Comments Rapid Plasma Reagin (test code = 26079-7) Non Reactive Non Reactive Performed at: [facility] [id number] Director: Daniel Huynh MD, Phone: [phone] [facility] of [facility] Campuserum or plasma amylase measurement (enzymatic activity/volume)2020-08-08 05:35:00* Test Item Value Reference Range Interpretation Comments Amylase Level (test code = 1798-8) 48 25-125 [facility] Campuserum or plasma lipase measurement (enzymatic activity/volume)2020-08-08 05:35:00* Test Item Value Reference Range Interpretation Comments Lipase (test code = 3040-3) 17 8-78 [facility] HospitalBlood cobalamin (vitamin B12) measurement (mass/volume)2020-08-08 05:35:00* Test Item Value Reference Range Interpretation Comments Vitamin B12 Level (test code = 37351-6) 999 213-816 [facility] Campuserum or plasma folate measurement (mass/volume)2020-08-08 05:35:00* Test Item Value Reference Range Interpretation Comments Folate (test code = 2284-8) 4.6 >3.0 A serum folate concentration of less than 3.1 ng/mL isconsidered to represent cl inical deficiency.Performed at: [facility]Co[address] [id number] Director: Daniel Huynh MD, Phone: [phone]. David's Georgetown HospitalCT BRAIN OZ7632-25-79 11:41:00 [address] [address] Patient Name: PRISCILLA ZAMUDIO MR #: [id number] : 1965 Age/Sex: 55/M Req #: [id number] Adm Physician: JESIKA BANDA MD Ordered by: NORRIS FELIX SENIOR RESEARCH FELLOW Report #: [id number] Location: [facility]/SURG2 Room/Bed: 210 Procedure: [id number] CT/CT BRAIN WO Exam Date: 08/07/20 Exam [...] Immunity 0.0 - 9.9Consistent with Immunity >9.9[facility] or plasma hepatitis B virus core antibody detection by sxgthbpqkvi5809-47-13 16:15:00* Test Item Value Reference Range Interpretation Comments Hepatitis B Core Total Antibody (test code = 84557-3) Negative Negative [facility] or plasma hepatitis B virus surface antigen detection by phptzypluxy3450-14-53 16:15:00* Test Item Value Reference Range Interpretation Comments Hepatitis B Surface Antigen (test code = 5196-1) Negative Negat shamar Performed at: [facility] [employer] [id number] Director: Daniel Huynh MD, Phone: [phone] [facility] of [facility] Campuserum or plasma hepatitis B virus core IgM antibody detection by voiszlphvld5912-36-82 16:15:00* Test Item Value Reference Range Interpretation Comments Hepatitis B Core IgM Antibody (test code = 21313-3) Negative Ne gative Performed at: [facility] [employer] [id number] Director: Daniel Huynh MD, Phone: [phone] [facility] Campuserum or plasma total bilirubin measurement (mass/volume)2020-08-06 05:04:00* Test Item Value Reference Range Interpretation Comments Total Bilirubin (test code = 1975-2) 0.4 0.2-1.2 [facility] HospitalFluoroscopic procedure less than one hour dwcrgezg4601-22-34 05:04:00* Test Item Value Reference Range Interpretation Comments Aspartate Amino Transf (AST/SGOT) (test code = Aspartate Amino Transf (AST/SGOT)) 26 5-34 [facility] Campuserum or plasma alanine aminotransferase measurement (enzymatic activity/volume)2020-08-06 05:04:00* Test Item Value Reference Range Interpretation Comments Alanine Aminotransferase (ALT/SGPT) (test code = 1742-6) 37 0-55 [facility] Campuserum or plasma protein measurement (mass/volume)2020-08-06 05:04:00* Test Item Value Reference Range Interpretation Comments Total Protein (test code = 2885-2) 7.2 6.5-8.1 [facility] Campuserum or plasma albumin measurement (mass/volume)2020-08-06 05:04:00* Test Item Value Reference Range Interpretation Comments Albumin (test code = 1751-7) 3.0 3.5-5.0 [facility] HospitalPlasma globulin measurement (mass/volume) 2020-08-06 05:04:00* Test Item Value Reference Range Interpretation Comments Globulin (test code = 56661-4) 4.2 2.3-3.5 [facility] Campuserum or plasma albumin/globulin mass dodvj9928-96-46 05:04:00* Test Item Value Reference Range Interpretation Comments Albumin/Globulin Ratio (test code = 1759-0) 0.7 0.8-2.0 [facility] Campuserum or plasma alkaline phosphatase measurement (enzymatic activity/volume)2020-08-06 05:04:00* Test Item Value Reference Range Interpretation Comments Alkaline Phosphatase (test code = 6768-6) 340 40-150 [facility] Campuserum or plasma creatine kinase measurement (enzymatic activity/volume)2020-08-06 05:04:00* Test Item Value Reference Range Interpretation Comments Creatine Kinase (test code = 2157-6) 248 30-200 [facility] Campuserum or plasma creatine kinase MB measurement (mass/volume)2020-08-05 16:20:00* Test Item Value Reference Range Interpretation Comments Creatine Kinase MB (test code = 59473-2) 6.00 0-5.0 [facility] HospitalTroponin I measurement by highly sensitive enzyme qvfdsqmkwow1104-26-22 16:20:00* Test Item Value Reference Range Interpretation Comments Troponin I (test code = 36978-7) 0.135 0-0.300 [facility] HospitalNON-TUNNELLED CVC CATH FRVOFBB2150-99-28 11:11:00 [facility] [address] [address] Patient Name: PRISCILLA ZAMUDIO MR #: [id number] : 1965 Age/Sex: 55/M Req #: [id number] Adm Physician: JESIKA BANDA MD Ordered by: ANI POSADA, ANIYA POSADA Report #: [id number] Location: [facility] Room/Bed: [facility] Procedure: IR/NON-TUNNELLE D CVC CATH PLACMNT Exam [...] volume (mL): NA Radiation Dose Fluoroscopy time (vladislva manuel): 0.0 Reference air kerma (mGy): 0.7 [...] TO: ANIYA LAW CENT HONORIO PLMT OR [id number] 11:11:00 [address] [address] Patient Name: PRISCILLA ZAMUDIO MR #: [id number] : 1965 Age/Sex: 55/M Req #: [id number] Adm Physician: JESIKA BANDA MD Ordered by: ANIYA LAW MD, MD Report #: [id number] Location: [facility] Room/Bed: [facility] Procedure: IR/ONEAL SHEPPARD CE NT HONORIO PLMT [...] COPY TO: ANIYA LAW GUIDANCE FOR VASCULAR [id number] 11:11:00 [address] [address] Patient Name: PRISCILLA ZAMUDIO MR #: [id number] : 1965 Age/Sex: 55/M Req #: [id number] Adm Physician: JESIKA BANDA MD Ordered by: KATY PUENTES MD Report #: [id number] Location: MED/SURG2 Room/Bed: [facility] Procedure: [id number] / VALARIE DANCE FOR VASCULAR ACCES Exam [...] applied. Catheter placed: Bard Trialysis Catheter size (Cameroonian): 13 Catheter length (cm): 15 Catheter flush: [...] 111 COPY TO: KATY PUENTES MD IR [id number] 11:11:00 [address] [address] Patient Name: PRISCILLA ZAMUDIO MR #: [id number] : 1965 Age/Sex: 55/M Req #: [id number] [facility] Physician: JESIKA BANDA MD Ordered by: KATY PUENTES MD Report #: [id number] Location: [address] [address] [address] Room/Bed: [facility] Procedure: DX/LONNIE HICKS Exam Date: Exam Time: [...] A sterile dressing was applied. Catheter placed: import.io Trialysis Catheter size (Cameroonian): 13 Catheter length (cm): 15 Catheter flush: [...] COPY TO: KATY PUENTES MD RENAL RETROPERITONEAL [id number] 10:19:00 [address] [address] Patient Name: PRISCILLA ZAMUDIO MR #: [id number] : 1965 Age/Sex: 55/M Req #: [id number] Adm Physician: JESIKA BANDA MD Ordered by: KATY PUENTES MD Report #: [id number] Location: MED/SURG2 Room/Bed: 210 Procedure: [id number] US/US CHANCE AL RETROPERITONEAL COMP Exam Date: [...] MD Fluoroscopic procedure less than one hour vvgfgxey4668-13-23 05:12:00* Test Item Value Reference Range Interpretation Comments Hemoglobin A1c Percent (test code = Hemoglobin A1c Percent) 4.9 4.0-7.0 [facility] Campuserum or plasma iron measurement (mass/volume)2020-08-05 05:12:00* Test Item Value Reference Range Interpretation Comments Iron Level (test code = 2498-4) 33 65-175 [facility] Campuserum or plasma iron binding capacity measurement (mass/volume)2020-08-05 05:12:00* Test Item Value Reference Range Interpretation Comments Total Iron Binding Capacity (test code = 2500-7) 244 261-4 78 [facility] Campuserum or plasma iron saturation measurement (mass fraction)2020-08-05 05:12:00* Test Item Value Reference Range Interpretation Comments Percent Iron Saturation (test code = 2502-3) 14 15-50 [facility] Campuserum or plasma transferrin measurement (mass/volume)2020-08-05 05:12:00* Test Item Value Reference Range Interpretation Comments Transferrin (test code = 3034-6) 174 174-364 [facility] Campuserum or plasma ferritin measurement (mass/volume)2020-08-05 05:12:00* Test Item Value Reference Range Interpretation Comments Ferritin (test code = 2276-4) 149.99 21.81-274.66 [facility] Campuserum or plasma thyrotropin measurement by detection limit <= 0.005 miu/l (units/volume)2020-08-05 05:12:00* Test Item Value Reference Range Interpretation Comments Thyroid Stimulating Hormone (TSH) (test code = 42538-7) 5.713 0.350-4.940 [facility] HospitalFluoroscopic procedure less than one hour hqdjprmu8878-72-17 21:56:00* Test Item Value Reference Range Interpretation Comments Coronavirus (PCR) (test code = Coronavirus (PCR)) NOT DETECTED NOTD ETECTED SARS-CoV-2 PCRHologic Aptima SARS-CoV-2 assay is a nucleic amplification test in tended for the qualitative detection of RNA from SARS-CoV-2 from nasopharyngeal (SENIOR RESEARCH FELLOW) specimens. It is used under Emergency Use [...] repr at testing oc clinically indicated.Tesing performed by:[facility] Laboratory Services[address] [place] [address] [id number], Katy boss MD, PhDCHI [facility] Medical CenterCHES SINGLE (PORTABLE) 2020-08-04 20:56:00 [facility] [address] [address] Patient Name: PRISCILLA ZAMUDIO MR #: [id number] : 1965 Age/Sex: 55/M Req #: [id number] Adm Physician: Ordered by: KATY PUENTES MD Report #: [id number] Location: ER Room/Bed: Procedure: [id number] DX/CHEST SINGLE (PORTABLE) Exam Date: 08/04/20 Exam [...] MD Fluoroscopic procedure less than one hour spaqsifn4530-11-14 19:33:00* Test Item Value Reference Range Interpretation Comments Differential Total Cells Counted (test code = Javon davidl Total Cells Counted) 100 [facility]/100 leukocytes 2020-08-04 19:33:00* Test Item Value Reference Range Interpretation Comments Neutrophils % (Manual) (test code = 43148-8) 82 40-74 [facility] blood lymphocytes/100 leukocytes 2020-08-04 19:33:00* Test Item Value Reference Range Interpretation Comments Lymphocytes % (Manual) (test code = 737-7) 5 19-48 [facility] blood monocytes/100 leukocytes 2020-08-04 19:33:00* Test Item Value Reference Range Interpretation Comments Monocytes % (Manual) (test code = 744-3) 12 3.4-9.0 [facility] blood eosinophil count as percentage of total eurgdqpdnf0919-23-18 19:33:00* Test Item Value Reference Range Interpretation Comments Eosinophils % (Manual) (test code = 714-6) 1 0-7 [facility] HospitalBlood platelets count by estimate (number/volume)2020-08-04 19:33:00* Test Item Value Reference Range Interpretation Comments Platelet Estimate (test code = 27443-0) [facility]DE[facility]ATE [facility] [facility] lvdphhrqdh1537-44-10 19:33:00* Test Item Value Reference Range Interpretation Comments Platelet Morphology Comment (test code = 67913-0) NORMAL [facility] HospitalProthrombin time (PT) in platelet poor plasma by coagulation oajoo4979-13-32 19:33:00* Test Item Value Reference Range Interpretation Comments Prothrombin Time (test code = 5902-2) 15.3 11.9-14.5 [facility] HospitalINR in Platelet poor plasma by Coagulation ihujp4401-67-76 19:33:00* Test Item Value Reference Range Interpretation Comments Prothromb Time International Ratio (test code = 6301-6) 1.15 Oral Anticoagulant Therapy INR Values:1. Low Intensity Therapy 1.5 - 2.02 . Moderate Intensity Therapy 2.0 - 3.03. High Intensity Therapy(1) 2.5 - 3. 54. High Intensity Therapy(2) 3.0 - 4.05. Panic Value INR > 5.0 [facility] HospitalActivated partial thromboplastin time (aPTT) in platelet poor plasma by coagulation rqcbv8945-59-77 19:33:00* Test Item Value Reference Range Interpretation Comments Activated Partial Thromboplast Time (test code = 36827-8) 41.7 23.8-35.5 [facility] HospitalUrine color tdcsgmucmoyyq9661-69-46 19:33:00* Test Item Value Reference Range Interpretation Comments Urine Color (test code = 5778-6) YELLOW YELLOW [facility] HospitalUrine sutcjip9394-27-09 19:33:00* Test Item Value Reference Range Interpretation Comments Urine Clarity (test code = 91071-6) HAZY CLEAR [facility] gravity of Urine by Test strip 2020-08-04 19:33:00* Test Item Value Reference Range Interpretation Comments Urine Specific Maxwell (test code = 5811-5) 1.025 1.010-1.[address] [facility] HospitalUrine pH measurement by automated test ktpiq0328-13-73 19:33:00* Test Item Value Reference Range Interpretation Comments Urine pH (test code = 09429-7) 5 5-7 [facility] HospitalUrine leukocyte esterase detection by cmrleajk2847-07-42 19:33:00* Test Item Value Reference Range Interpretation Comments Urine Leukocyte Esterase (test code = 5799-2) NEGATIVE NEGATIVE [facility] HospitalUrine nitrite cuskrwjfy7237-02-72 19:33:00* Test Item Value Reference Range Interpretation Comments Urine Nitrite (test code = 24533-7) NEGATIVE NEGATIVE [facility] HospitalUrine protein measurement by test strip (mass/volume)2020-08-04 19:33:00* Test Item Value Reference Range Interpretation Comments Urine Protein (test code = 5804-0) >=[address] [facility] HospitalUrine glucose rzeofndhn7087-54-87 19:33:00* Test Item Value Reference Range Interpretation Comments Urine Glucose (UA) (test code = 2349-9) 1+ NEGATIVE [facility] HospitalUrine ketones detection by automated test aaunw8332-61-15 19:33:00* Test Item Value Reference Range Interpretation Comments Urine Ketones (test code = 94727-3) NEGATIVE NEGATIVE [facility] HospitalUrine urobilinogen measurement by test strip (mass/volume)2020-08-04 19:33:00* Test Item Value Reference Range Interpretation Comments Urine Urobilinogen (test code = 49290-6) 0.2 0.2-1 [facility] HospitalUrine total bilirubin measurement (mass/volume)2020-08-04 19:33:00* Test Item Value Reference Range Interpretation Comments Urine Bilirubin (test code = 1978-6) NEGATIVE NEGATIVE [facility] HospitalUrine erythrocytes gmxhzyhxy6782-20-82 19:33:00* Test Item Value Reference Range Interpretation Comments Urine Blood (test code = 78371-2) LARGE NEGATIVE [facility] HospitalAutomated urine sediment leukocyte count by microscopy (number/high power field)2020-08-04 19:33:00* Test Item Value Reference Range Interpretation Comments Urine WBC (test code = 5821-4) 6-10 0-5 [facility] HospitalErythrocytes detection in urine sediment by light ggtwgkcrss5775-13-76 19:33:00* Test Item Value Reference Range Interpretation Comments Urine RBC (test code = 32065-8) 21-50 0-5 [facility] HospitalBacteria detection in urine sediment by light vmchgwavhb0708-75-86 19:33:00* Test Item Value Reference Range Interpretation Comments Urine Bacteria (test code = 24093-3) MODERATE NONE [facility] HospitalEpithelial cells detection in urine sediment by light mrcprsthgv6103-70-59 19:33:00* Test Item Value Reference Range Interpretation Comments Urine Epithelial Cells (test code = 27185-3) FEW NONE [facility] HospitalAmorphous sediment detection in urine sediment by light efeniqfqsf4413-22-32 19:33:00* Test Item Value Reference Range Interpretation Comments Urine Amorphous Sediment (test code = 8246-1) FEW FEW [facility] HospitalAutomated fine granular casts count in urine sediment by microscopy low power field (number/area)2020-08-04 19:33:00* Test Item Value Reference Range Interpretation Comments Urine Fine Granular Casts (test code = 89104-3) 1-[address] [facility] HospitalBNP Xbr-aFti6845-92-27 19:33:00* Test Item Value Reference Range Interpretation Comments B-Type Natriuretic Peptide (test code = 24753-3) 1680.4 0-100 [facility] Hospitalmagnesium, xlexl1088-17-11 08:50:00* Test Item Value Reference Range Interpretation Comments magnesium, serum (test code = 2601-3) 2.2 mg/dL 1.6-2.3 [facility] Healthphosphate, smprx2032-01-52 08:50:00* Test Item Value Reference Range Interpretation Comments phosphate, serum (test code = 2777-1) 6.6 mg/dL 2.8-4.1 H [facility] Healthcalcium, zvnnk3301-12-03 08:50:00* Test Item Value Reference Range Interpretation Comments calcium, serum (test code = 2000-8) 8.6 mg/dL 8.7-10.2 L [facility], venous oypte3160-55-70 08:50:00* Test Item Value Reference Range Interpretation Comments carbon dioxide, venous blood (test code = 2027-1) 18 mmol/L 20-2 9 L [facility] Healthchloride, umssq2211-42-76 08:50:00* Test Item Value Reference Range Interpretation Comments chloride, serum (test code = 2075-0) 108 mmol/L 96-106 H [facility] Healthpotassium, pcozh2324-14-27 08:50:00* Test Item Value Reference Range Interpretation Comments potassium, serum (test code = 2823-3) 5.7 mmol/L 3.5-5.2 H [facility] Southsodium, kpnjn2627-08-15 08:50:00* Test Item Value Reference Range Interpretation Comments sodium, serum (test code = 2951-2) 140 mmol/L 134-144 [facility] Southurea nitrogen/creatinine ratio, ujmxk3501-33-94 08:50:00 * Test Item Value Reference Range Interpretation Comments urea nitrogen/creatinine ratio, serum (test code = 3097-3) 10 9-20 [facility] HealtheGFR if Nbgugavu9484-29-82 08:50:00* Test Item Value Reference Range Interpretation Comments eGFR if (test code = 93609-1) 11 mL/min/((173/100) .m2) >59 L [facility] SouthEstimated Glomerular Filtration Rate (calc)2020-03-26 08:50:00* Test Item Value Reference Range Interpretation Comments Estimated Glomerular Filtration Rate (calc) (test code = 92930-1) 9 mL/min/((173/100).m2) >59 L [facility] Southcreatinine, npftd1148-36-65 08:50:00* Test Item Value Reference Range Interpretation Comments creatinine, serum (test code = 2160-0) 6.17 mg/dL 0.76-1.27 H [facility] Southurea nitrogen, utxjd4580-51-36 08:50:00* Test Item Value Reference Range Interpretation Comments urea nitrogen, blood (test code = 3094-0) 62 mg/dL 6-24 H [facility] Southblood glucose, fnzcpw1933-18-53 08:50:00* Test Item Value Reference Range Interpretation Comments blood glucose, random (test code = 2339-0) 80 mg/dL 65-99 [facility] Southplatelet sdvqx4826-97-92 08:50:00* Test Item Value Reference Range Interpretation Comments platelet count (test code = 777-3) 279 X10E3/UL 150-450 [facility] Southred blood cell distribution dpjqc3791-78-83 08:50:00* Test Item Value Reference Range Interpretation Comments red blood cell distribution width (test code = 788-0) 13.0 % 11.6-15.4 [facility] corpuscular hemoglobin concentration, EJZ8191-21-57 08:50:00* Test Item Value Reference Range Interpretation Comments mean corpuscular hemoglobin concentration, RBC (test code = 786-4) 33.9 G/DL 31.5-35.7 [facility] corpuscular hemoglobin, CUF1665-71-32 08:50:00* Test Item Value Reference Range Interpretation Comments mean corpuscular hemoglobin, RBC (test code = 785-6) 32.3 pg 2 6.6-33.0 [facility] corpuscular volume, GIB3759-97-48 08:50:00* Test Item Value Reference Range Interpretation Comments mean corpuscular volume, RBC (test code = 787-2) 96 fL 79-97 [facility] Southhematocrit, zvkbo6010-16-99 08:50:00* Test Item Value Reference Range Interpretation Comments hematocrit, blood (test code = 4544-3) 31.9 % 37.5-51.0 L [facility] Southhemoglobin, dvwxo0108-45-96 08:50:00* Test Item Value Reference Range Interpretation Comments hemoglobin, blood (test code = 718-7) 10.8 g/dL 13.0-17.7 L [facility] Southerythrocyte (RBC) raqdv8387-79-08 08:50:00* Test Item Value Reference Range Interpretation Comments erythrocyte (RBC) count (test code = 789-8) 3.34 X10E6/UL 4.14-5.80 L [facility] Southleukocyte count, idydt9230-48-42 08:50:00* Test Item Value Reference Range Interpretation Comments leukocyte count, blood (test code = 6690-2) 8.8 X10E3/UL 3.4-10.8 [facility] SouthUS Bnuuk3065-01-74 12:33:54Hm Interface, Radiology Results 03/08/2020 12:36 PM [...] participate in the care of your pa padmini.[facility]-[id number] Methodistparathormone, vxdnq9521-60-58 13:14:00* Test Item Value Reference Range Interpretation Comments parathormone, serum (test code = 2731-8) 148 pg/mL 15-65 H [facility] Healthmagnesium, xkbsd8484-79-07 13:14:00* Test Item Value Reference Range Interpretation Comments magnesium, serum (test code = 2601-3) 2.1 mg/dL 1.6-2.3 [facility] Healthphosphate, snhdg1860-60-51 13:14:00* Test Item Value Reference Range Interpretation Comments phosphate, serum (test code = 2777-1) 5.2 mg/dL 2.8-4.1 H [facility] Southmicroalbumin/total urine ssxpky2216-94-96 13:14:00* Test Item Value Reference Range Interpretation Comments microalbumin/total urine volume (test code = 47632-6) 4205.6 mg/L [facility] Southvitamin D 25-hydroxy, ktgng6968-69-70 13:14:00* Test Item Value Reference Range Interpretation Comments vitamin D 25-hydroxy, serum (test code = 03730-1) 16.9 ng/mL 30.0 -100.0 L [facility] Southcreatinine, random, wxjrj5971-27-18 13:14:00* Test Item Value Reference Range Interpretation Comments creatinine, random, urine (test code = 2161-8) 89.9 mg/dL [facility] Southbacteria, urine bmehewhyca2159-18-32 13:14:00* Test Item Value Reference Range Interpretation Comments bacteria, urine microscopy (test code = 5769-5) Few None s een/Few [facility] Southmucus on usvnekatat8760-42-18 13:14:00* Test Item Value Reference Range Interpretation Comments mucus on urinalysis (test code = 8247-9) Present [facility] SouthCrystal Type, Gutcs5376-90-72 13:14:00* Test Item Value Reference Range Interpretation Comments Crystal Type, Urine (test code = 303844) Amorphous Sediment N/A [facility] Southurine crystals, ayhcromunbw7778-03-97 13:14:00* Test Item Value Reference Range Interpretation Comments urine crystals, microscopic (test code = 2543) Present N/A A [facility] Southepithelial cells, grnmr3562-41-42 13:14:00* Test Item Value Reference Range Interpretation Comments epithelial cells, urine (test code = 5787-7) None seen 0-10 [facility] SouthRBC, Bcsmo8370-05-25 13:14:00* Test Item Value Reference Range Interpretation Comments RBC, Urine (test code = 87973-1) 0-2 /hpf 0-2 [facility] SouthWBC urine on izsstzftyw7295-19-13 13:14:00* Test Item Value Reference Range Interpretation Comments WBC urine on microscopy (test code = 1016) 0-5 /hpf 0-5 [facility] Southurinalysis, microscopic mibhjghewwb8231-42-97 13:14:00* Test Item Value Reference Range Interpretation Comments urinalysis, microscopic examination (test code = 42660-5) See below : [facility] Southnitrate, jpapf6969-45-50 13:14:00* Test Item Value Reference Range Interpretation Comments nitrate, urine (test code = 61022-8) Negative Negative [facility] Southurobilinogen, urine, semiquantitative (dipstick) 2020-02-05 13:14:00* Test Item Value Reference Range Interpretation Comments urobilinogen, urine, semiquantitative (dipstick) (test code = 5818-0) 0.2 0.2-1.0 [facility] Southbilirubin, aqgip6683-93-96 13:14:00* Test Item Value Reference Range Interpretation Comments bilirubin, urine (test code = 5770-3) Negative Negative [facility] Southketones, urine, by test lrydh0524-78-50 13:14:00* Test Item Value Reference Range Interpretation Comments ketones, urine, by test strip (test code = 5797-6) Negative Neg ative [facility] Southglucose, urine, qwtgfsnsgccnxogx0424-63-41 13:14:00* Test Item Value Reference Range Interpretation Comments glucose, urine, semiquantitative (test code = 5792-7) 2+ Negative A [facility] Southprotein, urine, semiquantitative (dipstick)2020-02-05 13:14:00* Test Item Value Reference Range Interpretation Comments protein, urine, semiquantitative (dipstick) (test code = 1753-3) 87 9.0 [facility] Southleukocyte esterase, urine, by ilghcchs7072-90-06 13:14:00 * Test Item Value Reference Range Interpretation Comments leukocyte esterase, urine, by dipstick (test code = 5799-2) Negativ e Negative [facility] Southappearance, wcrso9704-99-64 13:14:00* Test Item Value Reference Range Interpretation Comments appearance, urine (test code = 5767-9) Clear Clear [facility] Southurine yechj5417-41-20 13:14:00* Test Item Value Reference Range Interpretation Comments urine color (test code = 5778-6) Yellow Yellow [facility] SouthpH, urine, pygvrmelnbxlwqdu2598-53-70 13:14:00* Test Item Value Reference Range Interpretation Comments pH, urine, semiquantitative (test code = 5803-2) 5.5 5.0-7 .5 [facility] Southspecific gravity, body fajhh3392-40-74 13:14:00* Test Item Value Reference Range Interpretation Comments specific gravity, body fluid (test code = 2964-5) 1.020 1.00 5-1.030 [facility] Southalanine aminotransferase (SGPT), wfzas4732-07-17 13:14:00 * Test Item Value Reference Range Interpretation Comments alanine aminotransferase (SGPT), serum (test code = 1742-6) 38 1/L 0-44 [facility] Southaspartate aminotransferase (SGOT), zupgj6039-78-31 13:14:00* Test Item Value Reference Range Interpretation Comments aspartate aminotransferase (SGOT), serum (test code = 1920-8) 37 1/ L 0-40 [facility] Southalkaline phosphatase, ytbxb9131-81-63 13:14:00* Test Item Value Reference Range Interpretation Comments alkaline phosphatase, serum (test code = 1783-0) 249 1/L 39-11 7 H [facility] Southbilirubin, serum, wvsur8182-26-16 13:14:00* Test Item Value Reference Range Interpretation Comments bilirubin, serum, total (test code = 1975-2) <0.2 mg/dL 0.0-1.2 [facility]album[facility]globulin [facility], izqbf2479-09-06 13:14:00* Test Item Value Reference Range Interpretation Comments albumin/globulin ratio, serum (test code = 1759-0) 0.8 1.2 -2.2 L [facility] Healthglobulin, nzjbd0454-62-40 13:14:00* Test Item Value Reference Range Interpretation Comments globulin, serum (test code = 2336-6) 3.6 1.5-4.5 [facility] Healthalbumin, rvzky5284-07-57 13:14:00* Test Item Value Reference Range Interpretation Comments albumin, serum (test code = 1751-7) 3.0 g/dL 3.8-4.9 L [facility] Healthprotein, total, uvltc1085-77-75 13:14:00* Test Item Value Reference Range Interpretation Comments protein, total, serum (test code = 2885-2) 6.6 g/dL 6.0-8.5 [facility] Southcalcium, pvddi9080-49-03 13:14:00* Test Item Value Reference Range Interpretation Comments calcium, serum (test code = 2000-8) 8.4 mg/dL 8.7-10.2 L [facility] Southcarbon dioxide, venous mtguu6328-28-83 13:14:00* Test Item Value Reference Range Interpretation Comments carbon dioxide, venous blood (test code = 2027-1) 16 mmol/L 20-2 9 L [facility] Southchloride, spmll7029-24-44 13:14:00* Test Item Value Reference Range Interpretation Comments chloride, serum (test code = 2075-0) 112 mmol/L 96-106 H [facility] Healthpotassium, nsxqy3783-42-45 13:14:00* Test Item Value Reference Range Interpretation Comments potassium, serum (test code = 2823-3) 5.5 mmol/L 3.5-5.2 H [facility] Southsodium, onqwd9060-41-41 13:14:00* Test Item Value Reference Range Interpretation Comments sodium, serum (test code = 2951-2) 139 mmol/L 134-144 [facility] Southurea nitrogen/creatinine ratio, qnmpv3551-04-53 13:14:00 * Test Item Value Reference Range Interpretation Comments urea nitrogen/creatinine ratio, serum (test code = 3097-3) 11 9-20 [facility] SoutheGFR if Jdyupbfn0878-12-50 13:14:00* Test Item Value Reference Range Interpretation Comments eGFR if (test code = 47450-9) 15 mL/min/((173/100) .m2) >59 L [facility] SouthEstimated Glomerular Filtration Rate (calc)2020-02-05 13:14:00* Test Item Value Reference Range Interpretation Comments Estimated Glomerular Filtration Rate (calc) (test code = 99371-6) 13 mL/min/((173/100).m2) >59 L [facility] Southcreatinine, fstiv0746-10-58 13:14:00* Test Item Value Reference Range Interpretation Comments creatinine, serum (test code = 2160-0) 4.74 mg/dL 0.76-1.27 H [facility] Southurea nitrogen, msxjn9364-70-78 13:14:00* Test Item Value Reference Range Interpretation Comments urea nitrogen, blood (test code = 3094-0) 53 mg/dL 6-24 H [facility] Southblood glucose, uecwkv3467-48-16 13:14:00* Test Item Value Reference Range Interpretation Comments blood glucose, random (test code = 2339-0) 156 mg/dL 65-99 H [facility] Southimmature granulocytes, percentage of total cells, blood 2020-02-05 13:14:00* Test Item Value Reference Range Interpretation Comments immature granulocytes, percentage of total cells, bloo d (test code = 01264-8) 0 % [facility] Southbasophil count, dbvmbrpk8086-15-59 13:14:00* Test Item Value Reference Range Interpretation Comments basophil count, absolute (test code = 89361-3) 0.0 x10E3/uL 0.0-0.2 [facility] SouthEosinophil Absolute Fggew3116-52-49 13:14:00* Test Item Value Reference Range Interpretation Comments Eosinophil Absolute Count (test code = 26893-2) 0.3 X10E3/UL 0.0-0. 4 [facility] Southmonocyte count, blood, rirlyuwwt7240-30-82 13:14:00* Test Item Value Reference Range Interpretation Comments monocyte count, blood, automated (test code = 742-7) 0.4 X10E3/UL 0 .1-0.9 [facility] Southlymphocyte count, blood, iykfsiqgc6041-61-04 13:14:00* Test Item Value Reference Range Interpretation Comments lymphocyte count, blood, automated (test code = 731-0) 1.5 X10E3/UL 0.7-3.1 [facility] SouthAbsolute Niihnvlnrds3734-78-06 13:14:00* Test Item Value Reference Range Interpretation Comments Absolute Neutrophils (test code = 51584-9) 5.7 X10E3/UL 1.4-7.0 [facility] Southbasophils as percent of blood qggfcfrxxs7636-94-86 13:14:00* Test Item Value Reference Range Interpretation Comments basophils as percent of blood leukocytes (test code = 707-0) 0 % [facility] Southeosinophils as percent of blood wanxrznhtb4682-35-42 13:14:00* Test Item Value Reference Range Interpretation Comments eosinophils as percent of blood leukocytes (test code = 713-8) 4 % [facility] Southmonocytes as percent of blood lzbotdsxti7731-60-76 13:14:00* Test Item Value Reference Range Interpretation Comments monocytes as percent of blood leukocytes (test code = 5905-5) 5 % [facility] Southlymphocytes as percent of blood hmblrdacza7880-30-85 13:14:00* Test Item Value Reference Range Interpretation Comments lymphocytes as percent of blood leukocytes (test code = 736-9) 19 % [facility] Southneutrophils as percent of blood sqdnqfvvtx9141-52-18 13:14:00* Test Item Value Reference Range Interpretation Comments neutrophils as percent of blood leukocytes (test code = 770-8) 72 % [facility] Southplatelet tzlak3222-15-56 13:14:00* Test Item Value Reference Range Interpretation Comments platelet count (test code = 777-3) 262 X10E3/UL 150-450 [facility] Southred blood cell distribution weigs4914-82-47 13:14:00* Test Item Value Reference Range Interpretation Comments red blood cell distribution width (test code = 788-0) 14.6 % 11.6-15.4 [facility] Southmean corpuscular hemoglobin concentration, PLE4396-29-29 13:14:00* Test Item Value Reference Range Interpretation Comments mean corpuscular hemoglobin concentration, RBC (test code = 786-4) 31.7 G/DL 31.5-35.7 [facility] Southmean corpuscular hemoglobin, QQU8588-79-86 13:14:00* Test Item Value Reference Range Interpretation Comments mean corpuscular hemoglobin, RBC (test code = 785-6) 30.3 pg 2 6.6-33.0 [facility] Southmean corpuscular volume, ZGA3329-33-26 13:14:00* Test Item Value Reference Range Interpretation Comments mean corpuscular volume, RBC (test code = 787-2) 95 fL 79-97 [facility] Southhematocrit, lkoyv6815-97-00 13:14:00* Test Item Value Reference Range Interpretation Comments hematocrit, blood (test code = 4544-3) 35.3 % 37.5-51.0 L [facility] Southhemoglobin, qkogb1780-49-46 13:14:00* Test Item Value Reference Range Interpretation Comments hemoglobin, blood (test code = 718-7) 11.2 g/dL 13.0-17.7 L [facility] Southerythrocyte (RBC) qptue4643-38-90 13:14:00* Test Item Value Reference Range Interpretation Comments erythrocyte (RBC) count (test code = 789-8) 3.70 X10E6/UL 4.14-5.80 L [facility] Southleukocyte count, fkapl8057-38-10 13:14:00* Test Item Value Reference Range Interpretation Comments leukocyte count, blood (test code = 6690-2) 7.9 X10E3/UL 3.4-10.8 [facility] Southmicroalbumin/total urine ydxmgl4801-24-30 12:51:00* Test Item Value Reference Range Interpretation Comments microalbumin/total urine volume (test code = 25626-3) 2916.8 mg/L [facility] Southcreatinine, random, hzirl7640-73-75 12:51:00* Test Item Value Reference Range Interpretation Comments creatinine, random, urine (test code = 2161-8) 48.8 mg/dL [facility] Southbacteria, urine ruaxluyzvp0379-44-86 12:51:00* Test Item Value Reference Range Interpretation Comments bacteria, urine microscopy (test code = 5769-5) Few None s een/Few [facility] Southmucus on ufrgdnowtk3378-38-24 12:51:00* Test Item Value Reference Range Interpretation Comments mucus on urinalysis (test code = 8247-9) Present [facility] Southepithelial cells, gtksn3585-30-65 12:51:00* Test Item Value Reference Range Interpretation Comments epithelial cells, urine (test code = 5787-7) None seen 0-10 [facility] SouthRBC, Fqzim5050-06-50 12:51:00* Test Item Value Reference Range Interpretation Comments RBC, Urine (test code = 02532-2) 0-2 /hpf 0-2 [facility] SouthWBC urine on ajdphmrpek5035-63-00 12:51:00* Test Item Value Reference Range Interpretation Comments WBC urine on microscopy (test code = 1016) 0-5 /hpf 0-5 [facility] Southurinalysis, microscopic obnfaluerav3184-47-06 12:51:00* Test Item Value Reference Range Interpretation Comments urinalysis, microscopic examination (test code = 64403-5) See below : [facility] Southnitrate, ompdl5055-51-76 12:51:00* Test Item Value Reference Range Interpretation Comments nitrate, urine (test code = 65135-6) Negative Negative [facility] Southurobilinogen, urine, semiquantitative (dipstick) 2020-01-06 12:51:00* Test Item Value Reference Range Interpretation Comments urobilinogen, urine, semiquantitative (dipstick) (test code = 5818-0) 0.2 0.2-1.0 [facility] kvukb0533-82-48 12:51:00* Test Item Value Reference Range Interpretation Comments bilirubin, urine (test code = 5770-3) Negative Negative [facility]ketones, urine, by test nyxpq4930-30-85 12:51:00* Test Item Value Reference Range Interpretation Comments ketones, urine, by test strip (test code = 5797-6) Negative Neg ative [facility]glucose, urine, wldygtputqfpwqvy1129-52-12 12:51:00* Test Item Value Reference Range Interpretation Comments glucose, urine, semiquantitative (test code = 5792-7) 2+ Negative A [facility]protein, urine, semiquantitative (dipstick)2020-01-06 12:51:00* Test Item Value Reference Range Interpretation Comments protein, urine, semiquantitative (dipstick) (test code = 1753-3) 60 8.4 [facility]leukocyte esterase, urine, by gohutusk5882-14-24 12:51:00 * Test Item Value Reference Range Interpretation Comments leukocyte esterase, urine, by dipstick (test code = 5799-2) Negativ e Negative [facility]appearance, njlpg9881-03-62 12:51:00* Test Item Value Reference Range Interpretation Comments appearance, urine (test code = 5767-9) Clear Clear [facility]urine saomh8220-10-56 12:51:00* Test Item Value Reference Range Interpretation Comments urine color (test code = 5778-6) Yellow Yellow [facility]pH, urine, tjyzndykeivvjiec5284-33-56 12:51:00* Test Item Value Reference Range Interpretation Comments pH, urine, semiquantitative (test code = 5803-2) 6.5 5.0-7 .5 [facility]specific gravity, body aaxty4575-11-65 12:51:00* Test Item Value Reference Range Interpretation Comments specific gravity, body fluid (test code = 2964-5) 1.014 1.00 5-1.030 [facility]parathormone, kwvjv1055-49-81 12:20:00* Test Item Value Reference Range Interpretation Comments parathormone, serum (test code = 2731-8) 153 pg/mL 15-65 [facility] Healthmagnesium, migyz0739-25-86 12:20:00* Test Item Value Reference Range Interpretation Comments magnesium, serum (test code = 2601-3) 2.1 mg/dL 1.6-2.3 [facility]phosphate, hkshe4372-46-33 12:20:00* Test Item Value Reference Range Interpretation Comments phosphate, serum (test code = 2777-1) 5.6 mg/dL 2.8-4.1 H [facility]uric acid, cnlvw2320-05-86 12:20:00* Test Item Value Reference Range Interpretation Comments uric acid, serum (test code = 3084-1) 6.2 mg/dL 3.7-8.6 [facility]fructosamine, serum, sgjaephdparn1247-03-72 12:20:00* Test Item Value Reference Range Interpretation Comments fructosamine, serum, quantitative (test code = 3364) 0.25 mm ol/L Units converted. See lab report for original value. [facility]vitamin D 25-hydroxy, gxott8311-69-04 12:20:00* Test Item Value Reference Range Interpretation Comments vitamin D 25-hydroxy, serum (test code = 39703-3) 10.0 ng/mL 30.0 -100.0 L [facility]hemoglobin A1C, blood, as % of total xqydftdluj7124-50-86 12:20:00* Test Item Value Reference Range Interpretation Comments hemoglobin A1C, blood, as % of total hemoglobin (test code = 4548-4) 7.4 % 4.8-5.6 H [facility]calcium, qixgx5007-38-55 12:20:00* Test Item Value Reference Range Interpretation Comments calcium, serum (test code = 2000-8) 8.9 mg/dL 8.7-10.2 [facility]carbon dioxide, venous dekef5908-03-98 12:20:00* Test Item Value Reference Range Interpretation Comments carbon dioxide, venous blood (test code = 2027-1) 18 mmol/L 20-2 9 L [facility] Healthchloride, adyuq7437-08-33 12:20:00* Test Item Value Reference Range Interpretation Comments chloride, serum (test code = 2075-0) 101 mmol/L 96-106 [facility]potassium, cmkdf6078-03-25 12:20:00* Test Item Value Reference Range Interpretation Comments potassium, serum (test code = 2823-3) 4.9 mmol/L 3.5-5.2 [facility]sodium, qzsds5004-59-59 12:20:00* Test Item Value Reference Range Interpretation Comments sodium, serum (test code = 2951-2) 136 mmol/L 134-144 [facility] Southurea nitrogen/creatinine ratio, rzfag0038-41-43 12:20:00 * Test Item Value Reference Range Interpretation Comments urea nitrogen/creatinine ratio, serum (test code = 3097-3) 12 9-20 [facility] SoutheGFR if Fynrjnfi7594-12-69 12:20:00* Test Item Value Reference Range Interpretation Comments eGFR if (test code = 06351-5) 19 mL/min/((173/100) .m2) >59 L [facility]Estimated Glomerular Filtration Rate (calc)2020-01-06 12:20:00* Test Item Value Reference Range Interpretation Comments Estimated Glomerular Filtration Rate (calc) (test code = 96201-1) 16 mL/min/((173/100).m2) >59 L [facility]creatinine, vridw9389-32-73 12:20:00* Test Item Value Reference Range Interpretation Comments creatinine, serum (test code = 2160-0) 3.94 mg/dL 0.76-1.27 H [facility] Southurea nitrogen, rmvxy8027-19-41 12:20:00* Test Item Value Reference Range Interpretation Comments urea nitrogen, blood (test code = 3094-0) 47 mg/dL 6-24 H [facility] Southblood glucose, tlhbfh7110-55-64 12:20:00* Test Item Value Reference Range Interpretation Comments blood glucose, random (test code = 2339-0) 211 mg/dL 65-99 H [facility] Southimmature granulocytes, percentage of total cells, blood 2020-01-06 12:20:00* Test Item Value Reference Range Interpretation Comments immature granulocytes, percentage of total cells, bloo d (test code = 98775-0) 0 % [facility]basophil count, rvkjrzdz0940-69-88 12:20:00* Test Item Value Reference Range Interpretation Comments basophil count, absolute (test code = 64843-3) 0.1 x10E3/uL 0.0-0.2 [facility] SouthEosinophil Absolute Oclqk4510-29-13 12:20:00* Test Item Value Reference Range Interpretation Comments Eosinophil Absolute Count (test code = 32960-3) 0.3 X10E3/UL 0.0-0. 4 [facility]monocyte count, blood, vtciphrwi5180-54-17 12:20:00* Test Item Value Reference Range Interpretation Comments monocyte count, blood, automated (test code = 742-7) 0.5 X10E3/UL 0 .1-0.9 [facility]lymphocyte count, blood, lxmwwuvhz1414-09-27 12:20:00* Test Item Value Reference Range Interpretation Comments lymphocyte count, blood, automated (test code = 731-0) 1.6 X10E3/UL 0.7-3.1 [facility] SouthAbsolute Dldehzhafna7919-61-37 12:20:00* Test Item Value Reference Range Interpretation Comments Absolute Neutrophils (test code = 78454-4) 6.5 X10E3/UL 1.4-7.0 [facility]basophils as percent of blood vanrbtlqqa2386-94-79 12:20:00* Test Item Value Reference Range Interpretation Comments basophils as percent of blood leukocytes (test code = 707-0) 1 % [facility]heosinophils as percent of blood gxiqgqtcro6531-88-29 12:20:00* Test Item Value Reference Range Interpretation Comments eosinophils as percent of blood leukocytes (test code = 713-8) 4 % [facility]monocytes as percent of blood bjivjjtonr9267-65-57 12:20:00* Test Item Value Reference Range Interpretation Comments monocytes as percent of blood leukocytes (test code = 5905-5) 6 % [facility]lymphocytes as percent of blood rmxlmqerhk5888-08-87 12:20:00* Test Item Value Reference Range Interpretation Comments lymphocytes as percent of blood leukocytes (test code = 736-9) 18 % [facility] Southneutrophils as percent of blood fumgvosrdm8641-60-03 12:20:00* Test Item Value Reference Range Interpretation Comments neutrophils as percent of blood leukocytes (test code = 770-8) 71 % [facility] Southplatelet wipme0250-04-60 12:20:00* Test Item Value Reference Range Interpretation Comments platelet count (test code = 777-3) 297 X10E3/UL 150-450 [facility] Southred blood cell distribution fglmb0055-93-93 12:20:00* Test Item Value Reference Range Interpretation Comments red blood cell distribution width (test code = 788-0) 14.4 % 11.6-15.4 [facility] Southmean corpuscular hemoglobin concentration, ODQ0730-06-12 12:20:00* Test Item Value Reference Range Interpretation Comments mean corpuscular hemoglobin concentration, RBC (test code = 786-4) 30.7 G/DL 31.5-35.7 L [facility] corpuscular hemoglobin, SYH4754-53-63 12:20:00* Test Item Value Reference Range Interpretation Comments mean corpuscular hemoglobin, RBC (test code = 785-6) 30.3 pg 2 6.6-33.0 [facility] corpuscular volume, AQQ3443-03-77 12:20:00* Test Item Value Reference Range Interpretation Comments mean corpuscular volume, RBC (test code = 787-2) 99 fL 79-97 H [facility]hematocrit, zlphh3140-04-10 12:20:00* Test Item Value Reference Range Interpretation Comments hematocrit, blood (test code = 4544-3) 40.4 % 37.5-51.0 [facility]hemoglobin, eslmw3950-49-36 12:20:00* Test Item Value Reference Range Interpretation Comments hemoglobin, blood (test code = 718-7) 12.4 g/dL 13.0-17.7 L [facility] Southerythrocyte (RBC) eqwkw3848-11-34 12:20:00* Test Item Value Reference Range Interpretation Comments erythrocyte (RBC) count (test code = 789-8) 4.09 X10E6/UL 4.14-5.80 L [facility] Southleukocyte count, nrbin0411-33-10 12:20:00* Test Item Value Reference Range Interpretation Comments leukocyte count, blood (test code = 6690-2) 9.0 X10E3/UL 3.4-10.8 [facility] glucose, dyhwmze6993-29-53 10:53:25* Test Item Value Reference Range Interpretation Comments blood glucose, fasting (test code = 7) 128 mg/dL [facility] Bqabflz4091-39-23 08:09:00* Test Item Value Reference Range Interpretation Comments Bedside Glucose (test code = 20638-2) 106 70-120 Meter ID: [id number] [facility] Level 2019-10-13 05:37:00* Test Item Value Reference Range Interpretation Comments Sodium Level (test code = 2951-2) 130 136-145 L [facility] Mjrnu7552-03-37 05:37:00* Test Item Value Reference Range Interpretation Comments Potassium Level (test code = 2823-3) 4.2 3.5-5.1 [facility] HospitalChloride Dfsmv9068-07-65 05:37:00* Test Item Value Reference Range Interpretation Comments Chloride Level (test code = 2075-0) 108 98-[address] [facility] HospitalCarbon Dioxide Jqfns4661-36-71 05:37:00* Test Item Value Reference Range Interpretation Comments Carbon Dioxide Level (test code = 2028-9) 16 22-[address] [facility] HospitalAnion Epu4581-59-81 05:37:00* Test Item Value Reference Range Interpretation Comments Anion Gap (test code = 83785-7) 10.2 8-16 [facility] HospitalBlood Urea Bwyfnsgm5749-99-16 05:37:00* Test Item Value Reference Range Interpretation Comments Blood Urea Nitrogen (test code = 3094-0) 33 7-[address] [facility] HospitalCreatinine2019-12-06 05:37:00* Test Item Value Reference Range Interpretation Comments Creatinine (test code = 2160-0) 2.88 0.72-1.[address] [facility] HospitalBUN/Creatinine Rkehs9692-23-76 05:37:00* Test Item Value Reference Range Interpretation Comments BUN/Creatinine Ratio (test code = 3097-3) 11 6-25 [facility] HospitalEstimat Glomerular Filtration Rate 2019-10-13 05:37:00* Test Item Value Reference Range Interpretation Comments Estimat Glomerular Filtration Rate (test code = 942850802) 23 >60 L Ranges were taken from the National Kidney Disease Education Program and the [facility], [facility] [employer] literature.Reference ranges:60 or greater: Xarawy91-57 ( for 3 consecutive months): Chronic kidney disease 15 or less: Kidney failureSt. David's Georgetown HospitalGlucose Ucvwv4847-48-67 05:37:00* Test Item Value Reference Range Interpretation Comments Glucose Level (test code = OBM6283) 112 74-118 [facility] HospitalCalcium Nwogu5369-32-15 05:37:00* Test Item Value Reference Range Interpretation Comments Calcium Level (test code = 65162-1) 8.4 8.4-10.2 [facility] HospitalBlood Txwvich7997-08-31 23:15:00* Test Item Value Reference Range Interpretation Comments Blood Culture (test code = 40004474) NO GROWTH AFTER 5 DAYS, FINAL REPORT [facility] HospitalWhite Blood Msqte7663-70-25 06:32:00* Test Item Value Reference Range Interpretation Comments White Blood Count (test code = 6690-2) 12.18 4.8-10.[address] [facility] HospitalRed Blood Ropuc7899-11-93 06:32:00* Test Item Value Reference Range Interpretation Comments Red Blood Count (test code = 789-8) 3.21 4.3-5.[address] [facility] HospitalHemoglobin2019-12-05 06:32:00* Test Item Value Reference Range Interpretation Comments Hemoglobin (test code = 48289-5) 9.9 14.0-18.[address] [facility] HospitalHematocrit2019-12-05 06:32:00* Test Item Value Reference Range Interpretation Comments Hematocrit (test code = 4544-3) 29.9 38.2-49.[address] [facility] HospitalMean Corpuscular Ipfcwj4605-09-44 06:32:00* Test Item Value Reference Range Interpretation Comments Mean Corpuscular Volume (test code = 787-2) 93.1 81-99 [facility] HospitalMean Corpuscular Xvxgxtjbnp8188-51-23 06:32:00* Test Item Value Reference Range Interpretation Comments Mean Corpuscular Hemoglobin (test code = 785-6) 30.8 28-32 [facility] HospitalMean Corpuscular Hemoglobin Concent 2019-10-12 06:32:00* Test Item Value Reference Range Interpretation Comments Mean Corpuscular Hemoglobin Concent (test code = 786-4) 33.1 31-35 [facility] HospitalRed Cell Distribution Dimww4997-56-47 06:32:00* Test Item Value Reference Range Interpretation Comments Red Cell Distribution Width (test code = 68943-2) 12.5 11.7 -14.4 [facility] HospitalPlatelet Nygvo1807-12-18 06:32:00* Test Item Value Reference Range Interpretation Comments Platelet Count (test code = 777-3) 367 140-[address] [facility] HospitalNeutrophils (%) (Auto)2019-10-12 06:32:00 * Test Item Value Reference Range Interpretation Comments Neutrophils (%) (Auto) (test code = 99541-0) 70.8 38.7-80.0 [facility] HospitalLymphocytes (%) (Auto)2019-10-12 06:32:00 * Test Item Value Reference Range Interpretation Comments Lymphocytes (%) (Auto) (test code = 736-9) 17.7 18.0-39.[address] [facility] HospitalMonocytes (%) (Auto)2019-10-12 06:32:00* Test Item Value Reference Range Interpretation Comments Monocytes (%) (Auto) (test code = 5905-5) 6.7 4.4-11.3 [facility] HospitalEosinophils (%) (Auto)2019-10-12 06:32:00 * Test Item Value Reference Range Interpretation Comments Eosinophils (%) (Auto) (test code = 713-8) 2.7 0.0-6.0 [facility] HospitalBasophils (%) (Auto)2019-10-12 06:32:00* Test Item Value Reference Range Interpretation Comments Basophils (%) (Auto) (test code = 706-2) 0.5 0.0-1.0 [facility] HospitalIM GRANULOCYTES %2019-10-12 06:32:00* Test Item Value Reference Range Interpretation Comments IM GRANULOCYTES % (test code = IM GRANULOCYTES %) 1.6 0.0- 1.[address] [facility] HospitalNeutrophils # (Auto)2019-10-12 06:32:00* Test Item Value Reference Range Interpretation Comments Neutrophils # (Auto) (test code = 751-8) 8.6 2.1-6.[address] [facility] HospitalLymphocytes # (Auto)2019-10-12 06:32:00* Test Item Value Reference Range Interpretation Comments Lymphocytes # (Auto) (test code = 80012-4) 2.2 1.0-3.2 [facility] HospitalMonocytes # (Auto)2019-10-12 06:32:00* Test Item Value Reference Range Interpretation Comments Monocytes # (Auto) (test code = 742-7) 0.8 0.2-0.8 [facility] HospitalEosinophils # (Auto)2019-10-12 06:32:00* Test Item Value Reference Range Interpretation Comments Eosinophils # (Auto) (test code = 711-2) 0.3 0.0-0.4 [facility] HospitalBasophils # (Auto)2019-10-12 06:32:00* Test Item Value Reference Range Interpretation Comments Basophils # (Auto) (test code = 704-7) 0.1 0.0-0.1 [facility] HospitalAbsolute Immature Granulocyte (auto 2019-10-12 06:32:00* Test Item Value Reference Range Interpretation Comments Absolute Immature Granulocyte (auto (manuel t code = Absolute Immature Granulocyte (auto) 0.19 0-0.[address] [facility] HospitalProcalcitonin2019-12-04 22:39:00* Test Item Value Reference Range Interpretation Comments Procalcitonin (test code = 693069007) 40.77 0.00-0.08 H A procalcitonin (PCT) level [...] ng/mL are obtained.Performed at: HD - [facility] [address] [id number] Director: Daniel Huynh MD, Phone: [phone] [facility] CenterUS RENAL RETROPERITONEAL REKQ4042-36-09 13:36:00 [facility] [address] [address] Patient Name: PRISCILLA ZAMUDIO MR #: [id number] : 1965 Age/Sex: 54/M Req #: [id number] Adm Physician: ROBBY LARSEN MD Ordered by: ROBBY LARSEN MD Report #: [id number] Location: [facility] Room/Bed: [facility] Procedure: [id number] US/US R ENAL RETROPERITONEAL COMP Exam Date: [...] TO: ROBBY APPIAH MD MRI FOOT LEFT NH0724-30-92 09:38:00 [address] [address] Patient Name: PRISCILLA ZAMUDIO MR #: [id number] : 1965 Age/Sex: 54/M Req #: [id number] Adm Physician: ROBBY LARSEN MD Ordered by: CARLOS A SANCHEZ DO Report #: [id number] Location: [facility] Room/Bed: [facility] Procedure: [id number] MRI/MR I FOOT LEFT WO Exam Date: [...] (test code = 2571-8) 173 0-[address] [facility] HospitalCholesterol Kjqxt8205-28-47 08:01:00* Test Item Value Reference Range Interpretation Comments Cholesterol Level (test code = 2093-3) 167 0-199 Less than 200 mg/dL Low Xbao088 - 239 mg/dL Borderline Hlvn708 m g/dl and greater High Risk [facility] HospitalLDL Wsxjzliztgh9157-01-78 08:01:00* Test Item Value Reference Range Interpretation Comments LDL Cholesterol (test code = 2089-1) 108 60-130 [facility] HospitalHDL Nqcnkllmvxz6267-49-54 08:01:00* Test Item Value Reference Range Interpretation Comments HDL Cholesterol (test code = 2085-9) 24 40-[address] [facility] HospitalCholesterol/HDL Vomcn0645-32-74 08:01:00 * Test Item Value Reference Range Interpretation Comments Cholesterol/HDL Ratio (test code = 9830-1) 7.0 3.9-4.[address] [facility] HospitalHemoglobin A1c Tmlulnh5735-64-90 08:00:00 * Test Item Value Reference Range Interpretation Comments Hemoglobin A1c Percent (test code = Hemoglobin A1c Percent) 7.8 4.0-7.[address] [facility] HospitalLactic Acid Axuql9095-97-93 06:18:00* Test Item Value Reference Range Interpretation Comments Lactic Acid Level (test code = Lactic Acid Level) 0.6 0.5- 2.0 [facility] HospitalDifferential Total Cells Counted 2019-10-08 22:40:00* Test Item Value Reference Range Interpretation Comments Differential Total Cells Counted (test code = Differen tial Total Cells Counted) 100 [facility] HospitalNeutrophils % (Manual)2019-10-08 22:40:00 * Test Item Value Reference Range Interpretation Comments Neutrophils % (Manual) (test code = 00590-2) 76 40-[address] [facility] HospitalBand Neutrophils %2019-10-08 22:40:00* Test Item Value Reference Range Interpretation Comments Band Neutrophils % (test code = 764-1) 5 [facility] HospitalLymphocytes % (Manual)2019-10-08 22:40:00 * Test Item Value Reference Range Interpretation Comments Lymphocytes % (Manual) (test code = 737-7) 12 19-[address] [facility] HospitalMonocytes % (Manual)2019-10-08 22:40:00* Test Item Value Reference Range Interpretation Comments Monocytes % (Manual) (test code = 744-3) 6 3.4-9.0 [facility] HospitalPlasma Cells % (manual)2019-10-08 22:40:00* Test Item Value Reference Range Interpretation Comments Plasma Cells % (manual) (test code = 49966-3) 1 [facility] HospitalPlatelet Bcpsffic4933-29-87 22:40:00* Test Item Value Reference Range Interpretation Comments Platelet Estimate (test code = 36837-2) ADEQUATE [facility] HospitalPlatelet Morphology Fezpeaw0484-23-53 22:40:00* Test Item Value Reference Range Interpretation Comments Platelet Morphology Comment (test code = 65687-4) FEW LARGE [facility] HospitalAnisocytosis2019-12-01 22:40:00* Test Item Value Reference Range Interpretation Comments Anisocytosis (test code = 702-1) SLIGHT [facility] HospitalCT ABDOMEN/PELVIS EB8966-25-63 18:55:00 [facility] [address] [address] Patient Name: PRISCILLA ZAMUDIO MR #: [id number] : 1965 Age/Sex: 54/M Req #: [id number] Adm Physician: ROBBY LARSEN MD Ordered by: BELA WALSH MD Report #: [id number] Location: [facility]3 Room/Bed: [facility] Procedure: [id number] CT/CT ABDOMEN/PELVIS WO Exam Date: 10/08/19 Exam Time: 18 48 REPORT STATUS: Signed CT Abdo men and Pelvis without contrast INDICATION: Loose bowels and leukocytosis loose bm's [id number] TECHNIQUE: Thin collimation axial images obtained [...] ALEXANDRA CURTIS MD 17 COPY TO: JM WALSH MD FOOT LEFT MSVGASCH1624-63-51 14:38:00 [address] [address] Patient Name: PRISCILLA ZAMUDIO MR #: [id number] : 1965 Age/Sex: 54/M Req #: [id number] Adm Physician: ROBBY LARSEN MD Ordered by: BELA WALSH MD Report #: [id number] Location: MED/[facility]3 Room/Bed: [facility] Procedure: [id number] DX/FO OT LEFT COMPLETE Exam Date: 10/08/19 Exam Time: 1413 REPORT STATUS: Signed Foot comp lete CPT code: 64266 Indication: Diabetic, great toe discoloration x1 month r/o gas [id number] 1413 Technique: A.P., oblique and lateral views [...] 10/08/191440 COPY TO: BELA WALSH MD Total Grtrleotf9049-76-02 23:36:00* Test Item Value Reference Range Interpretation Comments Total Bilirubin (test code = 1975-2) 0.3 0.2-1.2 [facility] HospitalAspartate Amino Transf (AST/SGOT) 2019-10-07 23:36:00* Test Item Value Reference Range Interpretation Comments Aspartate Amino Transf (AST/SGOT) (test code = Aspartate Amino Transf (AST/SGOT)) 39 5-[address] [facility] HospitalAlanine Aminotransferase (ALT/SGPT) 2019-10-07 23:36:00* Test Item Value Reference Range Interpretation Comments Alanine Aminotransferase (ALT/SGPT) (test code = 1742-6) 41 0-55 [facility] HospitalTotal Abxqtat2142-68-93 23:36:00* Test Item Value Reference Range Interpretation Comments Total Protein (test code = 2885-2) 8.9 6.5-8.[address] [facility] HospitalAlbumin2019-11-30 23:36:00* Test Item Value Reference Range Interpretation Comments Albumin (test code = 1751-7) 2.1 3.5-5.[address] [facility] HospitalGlobulin2019-11-30 23:36:00* Test Item Value Reference Range Interpretation Comments Globulin (test code = 36137-0) 6.8 2.3-3.[address] [facility] HospitalAlbumin/Globulin Pheie1185-64-36 23:36:00 * Test Item Value Reference Range Interpretation Comments Albumin/Globulin Ratio (test code = 1759-0) 0.3 0.8-2.[address] [facility] HospitalAlkaline Apsqaojwohd2038-80-60 23:36:00* Test Item Value Reference Range Interpretation Comments Alkaline Phosphatase (test code = 6768-6) 640 40-[address] [facility] Hospitalhemoglobin A1C, blood, as % of total zqhvmrbozg1612-66-02 09:36:57* Test Item Value Reference Range Interpretation Comments hemoglobin A1C, blood, as % of total hemoglobin (test code = 4548-4 ) 162 % [facility], eoxcyz8953-62-12 13:25:59* Test Item Value Reference Range Interpretation Comments blood glucose, random (test code = 2339-0) 144 mg/dL [facility] 25-hydroxy, chffd9667-36-14 13:23:00* Test Item Value Reference Range Interpretation Comments vitamin D 25-hydroxy, serum (test code = 78925-9) 10.3 ng/mL 30.0 -100.0 L [facility]hemoglobin A1C, blood, as % of total nrinpvzfmv0729-28-72 13:23:00* Test Item Value Reference Range Interpretation Comments hemoglobin A1C, blood, as % of total hemoglobin (test code = 4548-4) 8.5 % 4.8-5.6 H [facility] SouthLDL cholesterol, nxhmh7435-52-18 13:23:00* Test Item Value Reference Range Interpretation Comments LDL cholesterol, serum (test code = 2089-1) 116 mg/dL 0-99 H [facility] low density gfcwupglqnzy3036-22-47 13:23:00* Test Item Value Reference Range Interpretation Comments very low density lipoproteins (test code = 2091-7) 22 mg/dL 5-4 0 [facility]HDL cholesterol, dmlbt2809-18-90 13:23:00* Test Item Value Reference Range Interpretation Comments HDL cholesterol, serum (test code = 2085-9) 76 mg/dL >39 [facility]htriglyceride, serum, [id number] 13:23:00* Test Item Value Reference Range Interpretation Comments triglyceride, serum, fasting (test code = 2571-8) 112 mg/dL 0-14 9 [facility]cholesterol, [id number] 13:23:00* Test Item Value Reference Range Interpretation Comments cholesterol, serum (test code = 2093-3) 214 mg/dL 100-199 H [facility]alanine aminotransferase (SGPT), cgulp7981-89-89 13:23:00 * Test Item Value Reference Range Interpretation Comments alanine aminotransferase (SGPT), serum (test code = 1742-6) 75 1/L 0-44 H [facility] Southaspartate aminotransferase (SGOT), titaz6269-31-35 13:23:00* Test Item Value Reference Range Interpretation Comments aspartate aminotransferase (SGOT), serum (test code = 1920-8) 82 1/ L 0-40 H [facility]alkaline phosphatase, htkko2432-22-37 13:23:00* Test Item Value Reference Range Interpretation Comments alkaline phosphatase, serum (test code = 1783-0) 580 1/L 39-11 7 H [facility]bilirubin, serum, uqkix9358-33-74 13:23:00* Test Item Value Reference Range Interpretation Comments bilirubin, serum, total (test code = 1975-2) 0.3 mg/dL 0.0-1.2 [facility]albumin/globulin ratio, wrgao3536-35-31 13:23:00* Test Item Value Reference Range Interpretation Comments albumin/globulin ratio, serum (test code = 1759-0) 0.7 1.2 -2.2 L [facility]globulin, zdqxc8303-15-38 13:23:00* Test Item Value Reference Range Interpretation Comments globulin, serum (test code = 2336-6) 4.3 1.5-4.5 [facility]albumin, cnwho0913-04-70 13:23:00* Test Item Value Reference Range Interpretation Comments albumin, serum (test code = 1751-7) 3.0 g/dL 3.5-5.5 L [facility] Healthprotein, total, uuibc7140-76-92 13:23:00* Test Item Value Reference Range Interpretation Comments protein, total, serum (test code = 2885-2) 7.3 g/dL 6.0-8.5 [facility]calcium, fousv9851-62-50 13:23:00* Test Item Value Reference Range Interpretation Comments calcium, serum (test code = 2000-8) 9.1 mg/dL 8.7-10.2 [facility]carbon dioxide, venous spcqv0684-40-19 13:23:00* Test Item Value Reference Range Interpretation Comments carbon dioxide, venous blood (test code = 2027-1) 20 mmol/L 20-2 9 [facility]chloride, qugxp5380-69-57 13:23:00* Test Item Value Reference Range Interpretation Comments chloride, serum (test code = 2075-0) 107 mmol/L 96-106 H [facility]potassium, cqsbx8071-18-18 13:23:00* Test Item Value Reference Range Interpretation Comments potassium, serum (test code = 2823-3) 5.2 mmol/L 3.5-5.2 [facility]sodium, fvaby8446-35-22 13:23:00* Test Item Value Reference Range Interpretation Comments sodium, serum (test code = 2951-2) 139 mmol/L 134-144 [facility]urea nitrogen/creatinine ratio, wdrnn6033-18-04 13:23:00 * Test Item Value Reference Range Interpretation Comments urea nitrogen/creatinine ratio, serum (test code = 3097-3) 12 9-20 [facility] HealtheGFR if Pnkmjdnn8647-77-34 13:23:00* Test Item Value Reference Range Interpretation Comments eGFR if (test code = 62951-6) 32 mL/min/((173/100) .m2) >59 L [facility]Estimated Glomerular Filtration Rate (calc)2019-09-16 13:23:00* Test Item Value Reference Range Interpretation Comments Estimated Glomerular Filtration Rate (calc) (test code = 55941-8) 28 mL/min/((173/100).m2) >59 L [facility]creatinine, hpzcj2685-25-09 13:23:00* Test Item Value Reference Range Interpretation Comments creatinine, serum (test code = 2160-0) 2.52 mg/dL 0.76-1.27 H [facility] Southurea nitrogen, ecbio7560-22-28 13:23:00* Test Item Value Reference Range Interpretation Comments urea nitrogen, blood (test code = 3094-0) 31 mg/dL 6-24 H [facility]blood glucose, kilmvb0644-49-16 13:23:00* Test Item Value Reference Range Interpretation Comments blood glucose, random (test code = 2339-0) 159 mg/dL 65-99 H [facility] Southimmature granulocytes, percentage of total cells, blood 2019-09-16 13:23:00* Test Item Value Reference Range Interpretation Comments immature granulocytes, percentage of total cells, bloo d (test code = 92037-8) 0 % [facility]basophil count, qqhglvbf6627-86-67 13:23:00* Test Item Value Reference Range Interpretation Comments basophil count, absolute (test code = 25250-6) 0.0 x10E3/uL 0.0-0.2 [facility] SouthEosinophil Absolute Wlbsk9197-54-41 13:23:00* Test Item Value Reference Range Interpretation Comments Eosinophil Absolute Count (test code = 27498-6) 0.3 X10E3/UL 0.0-0. 4 [facility]monocyte count, blood, myzcijqbj3195-22-96 13:23:00* Test Item Value Reference Range Interpretation Comments monocyte count, blood, automated (test code = 742-7) 0.8 X10E3/UL 0 .1-0.9 [facility]lymphocyte count, blood, auvxwxxcu3543-65-30 13:23:00* Test Item Value Reference Range Interpretation Comments lymphocyte count, blood, automated (test code = 731-0) 2.2 X10E3/UL 0.7-3.1 [facility] SouthAbsolute Augdmqbrxfs6350-16-68 13:23:00* Test Item Value Reference Range Interpretation Comments Absolute Neutrophils (test code = 04067-1) 10.0 X10E3/UL 1.4-7.0 H [facility]basophils as percent of blood ivhmyaodjd0314-23-59 13:23:00* Test Item Value Reference Range Interpretation Comments basophils as percent of blood leukocytes (test code = 707-0) 0 % [facility] Southeosinophils as percent of blood ggpecxomsh3378-60-56 13:23:00* Test Item Value Reference Range Interpretation Comments eosinophils as percent of blood leukocytes (test code = 713-8) 3 % [facility]monocytes as percent of blood quvzzexdtz8208-63-39 13:23:00* Test Item Value Reference Range Interpretation Comments monocytes as percent of blood leukocytes (test code = 5905-5) 6 % [facility]lymphocytes as percent of blood crsqzwvono1449-83-60 13:23:00* Test Item Value Reference Range Interpretation Comments lymphocytes as percent of blood leukocytes (test code = 736-9) 17 % [facility]neutrophils as percent of blood szyrzvqusi6919-39-54 13:23:00* Test Item Value Reference Range Interpretation Comments neutrophils as percent of blood leukocytes (test code = 770-8) 74 % [facility] Southplatelet ofczl7932-47-85 13:23:00* Test Item Value Reference Range Interpretation Comments platelet count (test code = 777-3) 386 X10E3/UL 150-450 [facility] Southred blood cell distribution wvpnm9193-03-10 13:23:00* Test Item Value Reference Range Interpretation Comments red blood cell distribution width (test code = 788-0) 13.1 % 12.3-15.4 [facility] corpuscular hemoglobin concentration, FHR8849-42-28 13:23:00* Test Item Value Reference Range Interpretation Comments mean corpuscular hemoglobin concentration, RBC (test code = 786-4) 33.5 G/DL 31.5-35.7 [facility] corpuscular hemoglobin, [id number] 13:23:00* Test Item Value Reference Range Interpretation Comments mean corpuscular hemoglobin, RBC (test code = 785-6) 32.1 pg 2 6.6-33.0 [facility] corpuscular volume, TTQ8900-25-75 13:23:00* Test Item Value Reference Range Interpretation Comments mean corpuscular volume, RBC (test code = 787-2) 96 fL 79-97 [facility]hematocrit, wdjqc6919-27-45 13:23:00* Test Item Value Reference Range Interpretation Comments hematocrit, blood (test code = 4544-3) 35.5 % 37.5-51.0 L [facility] Southhemoglobin, cnydr3306-55-56 13:23:00* Test Item Value Reference Range Interpretation Comments hemoglobin, blood (test code = 718-7) 11.9 g/dL 13.0-17.7 L [facility] Southerythrocyte (RBC) gtouu0404-40-21 13:23:00* Test Item Value Reference Range Interpretation Comments erythrocyte (RBC) count (test code = 789-8) 3.71 X10E6/UL 4.14-5.80 L [facility] Southleukocyte count, fyvpf9869-38-77 13:23:00* Test Item Value Reference Range Interpretation Comments leukocyte count, blood (test code = 6690-2) 13.5 X10E3/UL 3.4-10.8 H [facility]microalbumin/creatinine ratio, zjsoq5571-97-37 13:15:00* Test Item Value Reference Range Interpretation Comments microalbumin/creatinine ratio, urine (test code = 24379-2) 4 905.3 MG/G CREAT 0.0-30.0 H [facility]microalbumin/total urine eceluu5718-55-52 13:15:00* Test Item Value Reference Range Interpretation Comments microalbumin/total urine volume (test code = 96441-3) 4792.5 mg/L [facility]creatinine, random, qulzi3043-11-26 13:15:00* Test Item Value Reference Range Interpretation Comments creatinine, random, urine (test code = 2161-8) 97.7 mg/dL [facility]bacteria, urine rqudjqmiko8726-64-91 13:15:00* Test Item Value Reference Range Interpretation Comments bacteria, urine microscopy (test code = 5769-5) None seen None s een/Few [facility] Healthmucus on nroioiqtgg4871-61-98 13:15:00* Test Item Value Reference Range Interpretation Comments mucus on urinalysis (test code = 8247-9) Present [facility] [employer] type, kwypupdaea5492-04-49 13:15:00* Test Item Value Reference Range Interpretation Comments cast type, urinalysis (test code = 72394) Granular casts N/A A [facility] Healthcasts, geadx1003-25-85 13:15:00* Test Item Value Reference Range Interpretation Comments casts, urine (test code = 5626) Present None seen A [facility] Southepithelial cells, niwah2060-22-77 13:15:00* Test Item Value Reference Range Interpretation Comments epithelial cells, urine (test code = 5787-7) 0-10 0-10 [facility] SouthRBC, Tbfpt1069-57-23 13:15:00* Test Item Value Reference Range Interpretation Comments RBC, Urine (test code = 01005-4) 0-2 /hpf 0-2 [facility] SouthWBC urine on xmkpddxeem3935-19-51 13:15:00* Test Item Value Reference Range Interpretation Comments WBC urine on microscopy (test code = 1016) 0-5 /hpf 0-5 [facility]urinalysis, microscopic lqgnqezvbvp8528-45-58 13:15:00* Test Item Value Reference Range Interpretation Comments urinalysis, microscopic examination (test code = 48063-2) See below : [facility] Southnitrate, yonyy8856-50-10 13:15:00* Test Item Value Reference Range Interpretation Comments nitrate, urine (test code = 51873-9) Negative Negative [facility] Southurobilinogen, urine, semiquantitative (dipstick) 2019-09-16 13:15:00* Test Item Value Reference Range Interpretation Comments urobilinogen, urine, semiquantitative (dipstick) (test code = 5818-0) 0.2 0.2-1.0 [facility]bilirubin, pbvof7261-40-36 13:15:00* Test Item Value Reference Range Interpretation Comments bilirubin, urine (test code = 5770-3) Negative Negative [facility] Southketones, urine, by test pjghw9186-57-91 13:15:00* Test Item Value Reference Range Interpretation Comments ketones, urine, by test strip (test code = 5797-6) Negative Neg ative [facility] Southglucose, urine, serhjimynpqecxzk4972-35-26 13:15:00* Test Item Value Reference Range Interpretation Comments glucose, urine, semiquantitative (test code = 5792-7) 3+ Negative A [facility]protein, urine, semiquantitative (dipstick)2019-09-16 13:15:00* Test Item Value Reference Range Interpretation Comments protein, urine, semiquantitative (dipstick) (test code = 175 3-3) 3+ Negative/Trace A [facility] Southleukocyte esterase, urine, by xpxagxai8115-24-32 13:15:00 * Test Item Value Reference Range Interpretation Comments leukocyte esterase, urine, by dipstick (test code = 5799-2) Negativ e Negative [facility] Southappearance, isppx7818-94-17 13:15:00* Test Item Value Reference Range Interpretation Comments appearance, urine (test code = 5767-9) Clear Clear [facility] Southurine wmpbw5872-09-36 13:15:00* Test Item Value Reference Range Interpretation Comments urine color (test code = 5778-6) Yellow Yellow [facility] SouthpH, urine, bduusbcurhesatwm8754-33-80 13:15:00* Test Item Value Reference Range Interpretation Comments pH, urine, semiquantitative (test code = 5803-2) 5.5 5.0-7 .5 [facility] Southspecific gravity, body sfraf1370-85-78 13:15:00* Test Item Value Reference Range Interpretation Comments specific gravity, body fluid (test code = 2964-5) 1.023 1.00 5-1.030 [facility] Southblood glucose, sgfici4996-16-20 11:23:26* Test Item Value Reference Range Interpretation Comments blood glucose, random (test code = 2339-0) 198 mg/dL [facility] 2 + VIEWS LT - YXVP8102-03-48 20:46:00 [place] [address] Patient Name: PRISCILLA ZAMUDIO MR #: [id number] : 1965 Age/Sex: 54/M Req #: [id number] Adm Physician: Ordered by: REAL NICOLE MD Report #: [id number] Location: [facility] Room/Bed: Procedure: [id number] HOP D/TOES 2 + VIEWS LT - [...] COPY TO: EULA NICOLE MD microalbumin/creatinine ratio, bomvg9753-63-04 07:58:00* Test Item Value Reference Range Interpretation Comments microalbumin/creatinine ratio, urine (test code = 62915-9) 3 742.4 MG/G CREAT 0.0-30.0 H [facility]microalbumin/total urine revzox0541-05-43 07:58:00* Test Item Value Reference Range Interpretation Comments microalbumin/total urine volume (test code = 69914-2) 3233.4 mg/L [facility]creatinine, random, zduwx4262-37-12 07:58:00* Test Item Value Reference Range Interpretation Comments creatinine, random, urine (test code = 2161-8) 86.4 mg/dL [facility]hemoglobin A1C, blood, as % of total zevdhfutjs7377-41-40 07:50:00* Test Item Value Reference Range Interpretation Comments hemoglobin A1C, blood, as % of total hemoglobin (test code = 4548-4) 9.5 % 4.8-5.6 H [facility]LDL cholesterol, zhuds3654-08-11 07:50:00* Test Item Value Reference Range Interpretation Comments LDL cholesterol, serum (test code = 2089-1) 107 mg/dL 0-99 H [facility]very low density yehqdnethijg1091-87-58 07:50:00* Test Item Value Reference Range Interpretation Comments very low density lipoproteins (test code = 2091-7) 27 mg/dL 5-4 0 [facility]HDL cholesterol, anctb4241-72-73 07:50:00* Test Item Value Reference Range Interpretation Comments HDL cholesterol, serum (test code = 2085-9) 82 mg/dL >39 [facility]htriglyceride, serum, xdazctp4896-94-66 07:50:00* Test Item Value Reference Range Interpretation Comments triglyceride, serum, fasting (test code = 2571-8) 137 mg/dL 0-14 9 [facility]cholesterol, soiyg5204-09-91 07:50:00* Test Item Value Reference Range Interpretation Comments cholesterol, serum (test code = 2093-3) 216 mg/dL 100-199 H [facility]alanine aminotransferase (SGPT), kxifx7228-69-50 07:50:00 * Test Item Value Reference Range Interpretation Comments alanine aminotransferase (SGPT), serum (test code = 1742-6) 62 1/L 0-44 H [facility] Southaspartate aminotransferase (SGOT), nvwbr6391-11-76 07:50:00* Test Item Value Reference Range Interpretation Comments aspartate aminotransferase (SGOT), serum (test code = 1920-8) 72 1/ L 0-40 H [facility] Southalkaline phosphatase, dmpju6129-73-23 07:50:00* Test Item Value Reference Range Interpretation Comments alkaline phosphatase, serum (test code = 1783-0) 378 1/L 39-11 7 H [facility]bilirubin, serum, iuifn7043-04-56 07:50:00* Test Item Value Reference Range Interpretation Comments bilirubin, serum, total (test code = 1975-2) 0.4 mg/dL 0.0-1.2 [facility]albumin/globulin ratio, siuhr9809-66-43 07:50:00* Test Item Value Reference Range Interpretation Comments albumin/globulin ratio, serum (test code = 1759-0) 0.8 1.2 -2.2 L [facility] Healthglobulin, rfqlh2569-96-68 07:50:00* Test Item Value Reference Range Interpretation Comments globulin, serum (test code = 2336-6) 4.0 1.5-4.5 [facility] Healthalbumin, sdqwb8576-16-15 07:50:00* Test Item Value Reference Range Interpretation Comments albumin, serum (test code = 1751-7) 3.0 g/dL 3.5-5.5 L [facility] Healthprotein, total, mmrpb2770-02-73 07:50:00* Test Item Value Reference Range Interpretation Comments protein, total, serum (test code = 2885-2) 7.0 g/dL 6.0-8.5 [facility] Healthcalcium, wzaup6792-91-94 07:50:00* Test Item Value Reference Range Interpretation Comments calcium, serum (test code = 2000-8) 8.8 mg/dL 8.7-10.2 [facility]carbon dioxide, venous dsrwz5019-70-65 07:50:00* Test Item Value Reference Range Interpretation Comments carbon dioxide, venous blood (test code = 7-1) 21 mmol/L 20-2 9 [facility] Healthchloride, rwrxo9184-58-41 07:50:00* Test Item Value Reference Range Interpretation Comments chloride, serum (test code = 2075-0) 103 mmol/L 96-106 [facility] Healthpotassium, dgobk8394-66-32 07:50:00* Test Item Value Reference Range Interpretation Comments potassium, serum (test code = 2823-3) 4.5 mmol/L 3.5-5.2 [facility] Healthsodium, yzuwg4089-44-83 07:50:00* Test Item Value Reference Range Interpretation Comments sodium, serum (test code = 2951-2) 140 mmol/L 134-144 [facility] Healthurea nitrogen/creatinine ratio, zktrb3971-59-88 07:50:00 * Test Item Value Reference Range Interpretation Comments urea nitrogen/creatinine ratio, serum (test code = 3097-3) 15 9-20 [facility] HealtheGFR if Flhhhhem3883-81-03 07:50:00* Test Item Value Reference Range Interpretation Comments eGFR if (test code = 71028-8) 60 mL/min/((173/100) .m2) >59 [facility] SouthEstimated Glomerular Filtration Rate (calc)2019-01-25 07:50:00* Test Item Value Reference Range Interpretation Comments Estimated Glomerular Filtration Rate (calc) (test code = 83587-1) 52 mL/min/((173/100).m2) >59 L [facility] Healthcreatinine, lechy6944-65-63 07:50:00* Test Item Value Reference Range Interpretation Comments creatinine, serum (test code = 2160-0) 1.51 mg/dL 0.76-1.27 H [facility] Southurea nitrogen, ojagz7691-73-94 07:50:00* Test Item Value Reference Range Interpretation Comments urea nitrogen, blood (test code = 3094-0) 22 mg/dL 6-24 [facility], hooqqg7826-23-87 07:50:00* Test Item Value Reference Range Interpretation Comments blood glucose, random (test code = 2339-0) 163 mg/dL 65-99 H [facility] Southhepatitis B core antibody, dqznw5350-43-50 07:50:00* Test Item Value Reference Range Interpretation Comments hepatitis B core antibody, total (test code = 77) Negative Nega tive [facility] Southhepatitis B surface hvzhzcp1354-92-07 07:50:00* Test Item Value Reference Range Interpretation Comments hepatitis B surface antigen (test code = 79) Negative Negative [facility] Southvitamin D 25-hydroxy, jlfkg4304-43-71 07:50:00* Test Item Value Reference Range Interpretation Comments vitamin D 25-hydroxy, serum (test code = 59512-2) 11.9 ng/mL 30.0 -100.0 L [facility] Southhepatitis B surface phvekknp7617-23-52 07:50:00* Test Item Value Reference Range Interpretation Comments hepatitis B surface antibody (test code = 78) Non Reactive [facility] Southprostate specific bnblyco0736-13-45 07:50:00* Test Item Value Reference Range Interpretation Comments prostate specific antigen (test code = 2857-1) 0.7 ng/mL 0.0-4.0 [facility] Southblood glucose, imwwqn3003-82-58 12:46:55* Test Item Value Reference Range Interpretation Comments blood glucose, random (test code = 2339-0) 292 mg/dL [facility] Souththyroid stimulating hormone, zbqam9618-75-68 09:11:00* Test Item Value Reference Range Interpretation Comments thyroid stimulating hormone, serum (test code = 3016-3) 3.01 0 u[iU]/mL 0.450-4.500 [facility]hemoglobin A1C, blood, as % of total gtbsdkialg9024-90-62 09:11:00* Test Item Value Reference Range Interpretation Comments hemoglobin A1C, blood, as % of total hemoglobin (test code = 4548-4) 9.8 % 4.8-5.6 H [facility]microalbumin/creatinine ratio, pewhn3732-25-94 09:11:00* Test Item Value Reference Range Interpretation Comments microalbumin/creatinine ratio, urine (test code = 55160-5) 4 276.5 MG/G CREAT 0.0-30.0 H [facility]microalbumin/total urine afykal7617-67-02 09:11:00* Test Item Value Reference Range Interpretation Comments microalbumin/total urine volume (test code = 43203-2) 3960.0 mg/L [facility]creatinine, random, hdtow6587-82-29 09:11:00* Test Item Value Reference Range Interpretation Comments creatinine, random, urine (test code = 2161-8) 92.6 mg/dL [facility] SouthLDL cholesterol, zvwls7311-28-91 09:11:00* Test Item Value Reference Range Interpretation Comments LDL cholesterol, serum (test code = 2089-1) 104 mg/dL 0-99 H [facility] Southvery low density pmdcfbzthllz7422-63-53 09:11:00* Test Item Value Reference Range Interpretation Comments very low density lipoproteins (test code = 2091-7) 27 mg/dL 5-4 0 [facility] SouthHDL cholesterol, angfv0755-43-97 09:11:00* Test Item Value Reference Range Interpretation Comments HDL cholesterol, serum (test code = 2085-9) 76 mg/dL >39 [facility] Southtriglyceride, serum, lghcyvn1282-90-30 09:11:00* Test Item Value Reference Range Interpretation Comments triglyceride, serum, fasting (test code = 2571-8) 137 mg/dL 0-14 9 [facility]cholesterol, nvgfi1612-39-68 09:11:00* Test Item Value Reference Range Interpretation Comments cholesterol, serum (test code = 2093-3) 207 mg/dL 100-199 H [facility]alanine aminotransferase (SGPT), oblyb2293-80-19 09:11:00 * Test Item Value Reference Range Interpretation Comments alanine aminotransferase (SGPT), serum (test code = 1742-6) 81 1/L 0-44 H [facility] Southaspartate aminotransferase (SGOT), hdecl8456-16-88 09:11:00* Test Item Value Reference Range Interpretation Comments aspartate aminotransferase (SGOT), serum (test code = 1920-8) 62 1/ L 0-40 H [facility] Southalkaline phosphatase, gksba9470-42-13 09:11:00* Test Item Value Reference Range Interpretation Comments alkaline phosphatase, serum (test code = 1783-0) 305 1/L 39-11 7 H [facility] Southbilirubin, serum, dvcig7699-61-67 09:11:00* Test Item Value Reference Range Interpretation Comments bilirubin, serum, total (test code = 1975-2) 0.4 mg/dL 0.0-1.2 [facility] Healthalbumin/globulin ratio, upvjq9338-52-19 09:11:00* Test Item Value Reference Range Interpretation Comments albumin/globulin ratio, serum (test code = 1759-0) 1.0 1.2 -2.2 L [facility] Healthglobulin, zadaz7073-77-12 09:11:00* Test Item Value Reference Range Interpretation Comments globulin, serum (test code = 2336-6) 3.7 1.5-4.5 [facility] Healthalbumin, tbcbo5198-17-05 09:11:00* Test Item Value Reference Range Interpretation Comments albumin, serum (test code = 1751-7) 3.6 g/dL 3.5-5.5 [facility]protein, total, dbvdw0473-81-77 09:11:00* Test Item Value Reference Range Interpretation Comments protein, total, serum (test code = 2885-2) 7.3 g/dL 6.0-8.5 [facility]calcium, tggcb2897-92-35 09:11:00* Test Item Value Reference Range Interpretation Comments calcium, serum (test code = 2000-8) 9.1 mg/dL 8.7-10.2 [facility] Southcarbon dioxide, venous afwwd7463-27-01 09:11:00* Test Item Value Reference Range Interpretation Comments carbon dioxide, venous blood (test code = 7-1) 22 mmol/L 20-2 9 [facility] Healthchloride, yhopu5885-07-11 09:11:00* Test Item Value Reference Range Interpretation Comments chloride, serum (test code = 2075-0) 100 mmol/L 96-106 [facility] Healthpotassium, pzoen1645-05-59 09:11:00* Test Item Value Reference Range Interpretation Comments potassium, serum (test code = 2823-3) 4.8 mmol/L 3.5-5.2 [facility] wdqji2149-63-76 09:11:00* Test Item Value Reference Range Interpretation Comments sodium, serum (test code = 2951-2) 138 mmol/L 134-144 [facility] nitrogen/creatinine ratio, ralbk4730-02-36 09:11:00 * Test Item Value Reference Range Interpretation Comments urea nitrogen/creatinine ratio, serum (test code = 3097-3) 14 9-20 [facility] HealtheGFR if Qnijrjuq6174-94-27 09:11:00* Test Item Value Reference Range Interpretation Comments eGFR if (test code = 98629-3) 99 mL/min/((173/100) .m2) >59 [facility]Estimated Glomerular Filtration Rate (calc)2018-08-22 09:11:00* Test Item Value Reference Range Interpretation Comments Estimated Glomerular Filtration Rate (calc) (test code = 46432-7) 86 mL/min/((173/100).m2) >59 [facility]inine, hdbzr1382-15-22 09:11:00* Test Item Value Reference Range Interpretation Comments creatinine, serum (test code = 2160-0) 1.00 mg/dL 0.76-1.27 [facility]ure[facility] nitrogen, kiwxy7756-10-13 09:11:00* Test Item Value Reference Range Interpretation Comments urea nitrogen, blood (test code = 3094-0) 14 mg/dL 6-24 [facility]blood glucose, cbrwje5781-75-99 09:11:00* Test Item Value Reference Range Interpretation Comments blood glucose, random (test code = 2339-0) 241 mg/dL 65-99 H [facility] Southimmature granulocytes, percentage of total cells, blood 2018-08-22 09:11:00* Test Item Value Reference Range Interpretation Comments immature granulocytes, percentage of total cells, bloo d (test code = 72815-0) 0 % [facility]basophil count, yeraowcy0067-23-10 09:11:00* Test Item Value Reference Range Interpretation Comments basophil count, absolute (test code = 51377-1) 0.0 x10E3/uL 0.0-0.2 [facility]Eosinophil Absolute Qycwd7951-43-55 09:11:00* Test Item Value Reference Range Interpretation Comments Eosinophil Absolute Count (test code = 05585-1) 0.3 X10E3/UL 0.0-0. 4 [facility]monocyte count, blood, cdcqkaddh0577-86-18 09:11:00* Test Item Value Reference Range Interpretation Comments monocyte count, blood, automated (test code = 742-7) 0.9 X10E3/UL 0 .1-0.9 [facility]lymphocyte count, blood, eoghgxnix7649-81-27 09:11:00* Test Item Value Reference Range Interpretation Comments lymphocyte count, blood, automated (test code = 731-0) 2.0 X10E3/UL 0.7-3.1 [facility]Absolute Wgzdtwtzeuy9905-91-16 09:11:00* Test Item Value Reference Range Interpretation Comments Absolute Neutrophils (test code = 28474-7) 5.0 X10E3/UL 1.4-7.0 [facility]basophils as percent of blood bmvdfsbyqp6598-42-82 09:11:00* Test Item Value Reference Range Interpretation Comments basophils as percent of blood leukocytes (test code = 707-0) 0 % [facility] Southeosinophils as percent of blood rjmgcghtow8008-93-54 09:11:00* Test Item Value Reference Range Interpretation Comments eosinophils as percent of blood leukocytes (test code = 713-8) 4 % [facility]monocytes as percent of blood myrwppqnuv6830-63-04 09:11:00* Test Item Value Reference Range Interpretation Comments monocytes as percent of blood leukocytes (test code = 5905-5) 10 % [facility]lymphocytes as percent of blood lglkxfmhvu1639-95-32 09:11:00* Test Item Value Reference Range Interpretation Comments lymphocytes as percent of blood leukocytes (test code = 736-9) 24 % [facility]neutrophils as percent of blood ubkqtfmaas8285-16-69 09:11:00* Test Item Value Reference Range Interpretation Comments neutrophils as percent of blood leukocytes (test code = 770-8) 62 % [facility] Southplatelet cehsm0720-43-86 09:11:00* Test Item Value Reference Range Interpretation Comments platelet count (test code = 777-3) 291 X10E3/UL 150-379 [facility] blood cell distribution fvcar9650-77-43 09:11:00* Test Item Value Reference Range Interpretation Comments red blood cell distribution width (test code = 788-0) 14.1 % 12.3-15.4 [facility] corpuscular hemoglobin concentration, VJM4698-21-58 09:11:00* Test Item Value Reference Range Interpretation Comments mean corpuscular hemoglobin concentration, RBC (test code = 786-4) 33.4 G/DL 31.5-35.7 [facility] corpuscular hemoglobin, [id number] 09:11:00* Test Item Value Reference Range Interpretation Comments mean corpuscular hemoglobin, RBC (test code = 785-6) 32.6 pg 2 6.6-33.0 [facility] corpuscular volume, [id number] 09:11:00* Test Item Value Reference Range Interpretation Comments mean corpuscular volume, RBC (test code = 787-2) 98 fL 79-97 H [facility]hematocrit, xqkvf7337-00-06 09:11:00* Test Item Value Reference Range Interpretation Comments hematocrit, blood (test code = 4544-3) 38.0 % 37.5-51.0 [facility]hemoglobin, czcqj0789-25-36 09:11:00* Test Item Value Reference Range Interpretation Comments hemoglobin, blood (test code = 718-7) 12.7 g/dL 13.0-17.7 L [facility] Southerythrocyte (RBC) psgpi6591-98-97 09:11:00* Test Item Value Reference Range Interpretation Comments erythrocyte (RBC) count (test code = 789-8) 3.89 X10E6/UL 4.14-5.80 L [facility] Southleukocyte count, fnirf5886-28-41 09:11:00* Test Item Value Reference Range Interpretation Comments leukocyte count, blood (test code = 6690-2) 8.2 X10E3/UL 3.4-10.8 [facility]hemoglobin A1C, blood, as % of total nisqkxxjka9171-88-11 11:25:00* Test Item Value Reference Range Interpretation Comments hemoglobin A1C, blood, as % of total hemoglobin (test code = 4548-4) 9.6 % 4.8-5.6 H [facility]blood glucose, benirex6285-49-27 10:51:55* Test Item Value Reference Range Interpretation Comments blood glucose, fasting (test code = 7) 138 mg/dL [facility]microalbumin/total urine utwcrm1429-04-38 08:57:00* Test Item Value Reference Range Interpretation Comments microalbumin/total urine volume (test code = 81149-7) 2318.5 mg/L [facility]creatinine, random, okwtj4378-58-84 08:57:00* Test Item Value Reference Range Interpretation Comments creatinine, random, urine (test code = 2161-8) 76.6 mg/dL [facility]hemoglobin A1C, blood, as % of total giaumrdyca5581-57-99 08:56:00* Test Item Value Reference Range Interpretation Comments hemoglobin A1C, blood, as % of total hemoglobin (test code = 4548-4) 9.9 % 4.8-5.6 H [facility]hemoglobin A1C, blood, as % of total ggsklivgfa2105-68-84 17:28:00* Test Item Value Reference Range Interpretation Comments hemoglobin A1C, blood, as % of total hemoglobin (test code = 4548-4) 10.3 % 4.8-5.6 H [facility] SouthLDL cholesterol, jjkdd8712-91-05 17:28:00* Test Item Value Reference Range Interpretation Comments LDL cholesterol, serum (test code = 2089-1) 127 mg/dL 0-99 H [facility] Southvery low density wkxynmrtjedm2685-46-82 17:28:00* Test Item Value Reference Range Interpretation Comments very low density lipoproteins (test code = 2091-7) 48 mg/dL 5-4 0 H [facility] SouthHDL cholesterol, tigpz8199-84-41 17:28:00* Test Item Value Reference Range Interpretation Comments HDL cholesterol, serum (test code = 2085-9) 57 mg/dL >39 [facility] Southtriglyceride, serum, cqhgvrw5041-56-32 17:28:00* Test Item Value Reference Range Interpretation Comments triglyceride, serum, fasting (test code = 2571-8) 242 mg/dL 0-14 9 H [facility]cholesterol, yvufx5582-11-97 17:28:00* Test Item Value Reference Range Interpretation Comments cholesterol, serum (test code = 2093-3) 232 mg/dL 100-199 H [facility]alanine aminotransferase (SGPT), uesmb4670-31-73 17:28:00 * Test Item Value Reference Range Interpretation Comments alanine aminotransferase (SGPT), serum (test code = 1742-6) 76 1/L 0-44 H [facility] Southaspartate aminotransferase (SGOT), bhqex9536-82-54 17:28:00* Test Item Value Reference Range Interpretation Comments aspartate aminotransferase (SGOT), serum (test code = 1920-8) 57 1/ L 0-40 H [facility] Southalkaline phosphatase, uoaso3749-72-69 17:28:00* Test Item Value Reference Range Interpretation Comments alkaline phosphatase, serum (test code = 1783-0) 216 1/L 39-11 7 [facility]bilirubin, serum, nlada3376-46-19 17:28:00* Test Item Value Reference Range Interpretation Comments bilirubin, serum, total (test code = 1975-2) 0.3 mg/dL 0.0-1.2 [facility]albumin/globulin ratio, yaojf7297-51-32 17:28:00* Test Item Value Reference Range Interpretation Comments albumin/globulin ratio, serum (test code = 1759-0) 1.0 1.2 -2.2 L [facility] Healthglobulin, gkvur3722-81-07 17:28:00* Test Item Value Reference Range Interpretation Comments globulin, serum (test code = 2336-6) 4.0 1.5-4.5 [facility] Healthalbumin, gxqiw5507-34-20 17:28:00* Test Item Value Reference Range Interpretation Comments albumin, serum (test code = 1751-7) 3.9 g/dL 3.5-5.5 [facility] Healthprotein, total, tcewi7067-07-03 17:28:00* Test Item Value Reference Range Interpretation Comments protein, total, serum (test code = 2885-2) 7.9 g/dL 6.0-8.5 [facility] Healthcalcium, vhvzz4862-80-55 17:28:00* Test Item Value Reference Range Interpretation Comments calcium, serum (test code = 2000-8) 9.5 mg/dL 8.7-10.2 [facility]carbon dioxide, venous xipvh1661-12-51 17:28:00* Test Item Value Reference Range Interpretation Comments carbon dioxide, venous blood (test code = 2027-1) 26 mmol/L 18-2 9 [facility] Healthchloride, uzmhd1357-75-73 17:28:00* Test Item Value Reference Range Interpretation Comments chloride, serum (test code = 2075-0) 96 mmol/L 96-106 [facility]potassium, iebty4626-80-07 17:28:00* Test Item Value Reference Range Interpretation Comments potassium, serum (test code = 2823-3) 4.3 mmol/L 3.5-5.2 [facility] Healthsodium, omtsf5830-46-32 17:28:00* Test Item Value Reference Range Interpretation Comments sodium, serum (test code = 2951-2) 137 mmol/L 134-144 [facility]urea nitrogen/creatinine ratio, swabz8272-48-39 17:28:00 * Test Item Value Reference Range Interpretation Comments urea nitrogen/creatinine ratio, serum (test code = 3097-3) 16 9-20 [facility] HealtheGFR if Tsxcream2344-49-75 17:28:00* Test Item Value Reference Range Interpretation Comments eGFR if (test code = 54296-6) 82 mL/min/((173/100) .m2) >59 [facility] SouthEstimated Glomerular Filtration Rate (calc)2018-01-11 17:28:00* Test Item Value Reference Range Interpretation Comments Estimated Glomerular Filtration Rate (calc) (test code = 03758-9) 71 mL/min/((173/100).m2) >59 [facility]creatinine, rsunl6946-37-08 17:28:00* Test Item Value Reference Range Interpretation Comments creatinine, serum (test code = 2160-0) 1.17 mg/dL 0.76-1.27 [facility]urea nitrogen, ajtfq1107-73-70 17:28:00* Test Item Value Reference Range Interpretation Comments urea nitrogen, blood (test code = 3094-0) 19 mg/dL 6-24 [facility] Southblood glucose, bilwpd9507-63-99 17:28:00* Test Item Value Reference Range Interpretation Comments blood glucose, random (test code = 2339-0) 203 mg/dL 65-99 [facility], hoogre9654-30-42 15:20:44* Test Item Value Reference Range Interpretation Comments blood glucose, random (test code = 2339-0) 171 mg/dL [facility] Southvitamin D 25-hydroxy, iqmgg3422-96-06 09:28:00* Test Item Value Reference Range Interpretation Comments vitamin D 25-hydroxy, serum (test code = 88959-9) 25.3 ng/mL 30.0 -100.0 L [facility] Souththyroid stimulating hormone, nviaq2298-00-11 09:28:00* Test Item Value Reference Range Interpretation Comments thyroid stimulating hormone, serum (test code = 3016-3) 1.88 0 u[iU]/mL 0.450-4.500 [facility]hemoglobin A1C, blood, as % of total wynibutjnr4727-99-98 09:28:00* Test Item Value Reference Range Interpretation Comments hemoglobin A1C, blood, as % of total hemoglobin (test code = 4548-4) 14.8 % 4.8-5.6 H [facility] Southprostate specific wkcjjxq0429-91-58 09:28:00* Test Item Value Reference Range Interpretation Comments prostate specific antigen (test code = 2857-1) 0.8 ng/mL 0.0-4.0 [facility] SouthLDL cholesterol, rwthh7917-52-33 09:28:00* Test Item Value Reference Range Interpretation Comments LDL cholesterol, serum (test code = 2089-1) 120 mg/dL 0-99 H [facility] Southvery low density eovbcdbqscez8428-47-13 09:28:00* Test Item Value Reference Range Interpretation Comments very low density lipoproteins (test code = 2091-7) 51 mg/dL 5-4 0 H [facility] SouthHDL cholesterol, elxip3293-52-91 09:28:00* Test Item Value Reference Range Interpretation Comments HDL cholesterol, serum (test code = 2085-9) 42 mg/dL >39 [facility]htriglyceride, serum, jvwaajz8273-67-27 09:28:00* Test Item Value Reference Range Interpretation Comments triglyceride, serum, fasting (test code = 2571-8) 253 mg/dL 0-14 9 H [facility]cholesterol, rsaia8609-04-55 09:28:00* Test Item Value Reference Range Interpretation Comments cholesterol, serum (test code = 2093-3) 213 mg/dL 100-199 H [facility]alanine aminotransferase (SGPT), etrur8963-81-54 09:28:00 * Test Item Value Reference Range Interpretation Comments alanine aminotransferase (SGPT), serum (test code = 1742-6) 44 1/L 0-44 [facility] Southaspartate aminotransferase (SGOT), omqqp7496-06-83 09:28:00* Test Item Value Reference Range Interpretation Comments aspartate aminotransferase (SGOT), serum (test code = 1920-8) 35 1/ L 0-40 [facility] Southalkaline phosphatase, axmpa0379-78-46 09:28:00* Test Item Value Reference Range Interpretation Comments alkaline phosphatase, serum (test code = 1783-0) 183 1/L 39-11 7 H [facility]bilirubin, serum, tzyid2944-89-96 09:28:00* Test Item Value Reference Range Interpretation Comments bilirubin, serum, total (test code = 1975-2) 0.4 mg/dL 0.0-1.2 [facility]albumin/globulin ratio, ipqrk8299-37-76 09:28:00* Test Item Value Reference Range Interpretation Comments albumin/globulin ratio, serum (test code = 1759-0) 1.1 1.2 -2.2 L [facility] Healthglobulin, ooytd3390-17-43 09:28:00* Test Item Value Reference Range Interpretation Comments globulin, serum (test code = 2336-6) 3.8 1.5-4.5 [facility] Healthalbumin, aobmm8557-85-37 09:28:00* Test Item Value Reference Range Interpretation Comments albumin, serum (test code = 1751-7) 4.0 g/dL 3.5-5.5 [facility] Healthprotein, total, plsmg4640-83-61 09:28:00* Test Item Value Reference Range Interpretation Comments protein, total, serum (test code = 2885-2) 7.8 g/dL 6.0-8.5 [facility] Healthcalcium, trmsb5711-10-90 09:28:00* Test Item Value Reference Range Interpretation Comments calcium, serum (test code = 2000-8) 10.1 mg/dL 8.7-10.2 [facility]carbon dioxide, venous iyger6736-02-08 09:28:00* Test Item Value Reference Range Interpretation Comments carbon dioxide, venous blood (test code = 2027-1) 24 mmol/L 18-2 9 [facility] Healthchloride, nodft9933-98-57 09:28:00* Test Item Value Reference Range Interpretation Comments chloride, serum (test code = 2075-0) 96 mmol/L 96-106 [facility] Healthpotassium, imwgq4301-28-98 09:28:00* Test Item Value Reference Range Interpretation Comments potassium, serum (test code = 2823-3) 5.2 mmol/L 3.5-5.2 [facility] Healthsodium, ucham7684-46-19 09:28:00* Test Item Value Reference Range Interpretation Comments sodium, serum (test code = 2951-2) 134 mmol/L 134-144 [facility] Healthurea nitrogen/creatinine ratio, thcex1933-21-09 09:28:00 * Test Item Value Reference Range Interpretation Comments urea nitrogen/creatinine ratio, serum (test code = 3097-3) 17 9-20 [facility] HealtheGFR if Dozpfphg4267-45-25 09:28:00* Test Item Value Reference Range Interpretation Comments eGFR if (test code = 12636-7) 75 mL/min/((173/100) .m2) >59 [facility] SouthEstimated Glomerular Filtration Rate (calc)2017-08-16 09:28:00* Test Item Value Reference Range Interpretation Comments Estimated Glomerular Filtration Rate (calc) (test code = 13277-4) 65 mL/min/((173/100).m2) >59 [facility]creatinine, donps6335-37-43 09:28:00* Test Item Value Reference Range Interpretation Comments creatinine, serum (test code = 2160-0) 1.27 mg/dL 0.76-1.27 [facility]urea nitrogen, dpeoz2152-96-19 09:28:00* Test Item Value Reference Range Interpretation Comments urea nitrogen, blood (test code = 3094-0) 21 mg/dL 6-24 [facility] Southblood glucose, catduk8279-57-74 09:28:00* Test Item Value Reference Range Interpretation Comments blood glucose, random (test code = 2339-0) 242 mg/dL 65-99 H [facility] Southimmature granulocytes, percentage of total cells, blood 2017-08-16 09:28:00* Test Item Value Reference Range Interpretation Comments immature granulocytes, percentage of total cells, bloo d (test code = 25381-0) 0 % [facility] Southbasophil count, zlchwvst2874-61-21 09:28:00* Test Item Value Reference Range Interpretation Comments basophil count, absolute (test code = 07857-1) 0.0 x10E3/uL 0.0-0.2 [facility] SouthEosinophil Absolute Ajjxo6407-88-86 09:28:00* Test Item Value Reference Range Interpretation Comments Eosinophil Absolute Count (test code = 14652-6) 0.2 X10E3/UL 0.0-0. 4 [facility] Southmonocyte count, blood, aaljmrzct5617-99-97 09:28:00* Test Item Value Reference Range Interpretation Comments monocyte count, blood, automated (test code = 742-7) 0.6 X10E3/UL 0 .1-0.9 [facility]lymphocyte count, blood, ufwwhcije5738-11-88 09:28:00* Test Item Value Reference Range Interpretation Comments lymphocyte count, blood, automated (test code = 731-0) 2.6 X10E3/UL 0.7-3.1 [facility] SouthAbsolute Scaekuoonli1341-09-68 09:28:00* Test Item Value Reference Range Interpretation Comments Absolute Neutrophils (test code = 66104-5) 6.4 X10E3/UL 1.4-7.0 [facility]basophils as percent of blood sngmwttttj3439-41-07 09:28:00* Test Item Value Reference Range Interpretation Comments basophils as percent of blood leukocytes (test code = 707-0) 0 % [facility] Southeosinophils as percent of blood byjleibohp4617-23-75 09:28:00* Test Item Value Reference Range Interpretation Comments eosinophils as percent of blood leukocytes (test code = 713-8) 2 % [facility] Southmonocytes as percent of blood lxkedfpxhe1804-89-01 09:28:00* Test Item Value Reference Range Interpretation Comments monocytes as percent of blood leukocytes (test code = 5905-5) 7 % [facility] Southlymphocytes as percent of blood nushezdprz0872-20-06 09:28:00* Test Item Value Reference Range Interpretation Comments lymphocytes as percent of blood leukocytes (test code = 736-9) 26 % [facility] Southneutrophils as percent of blood lpgoqjjpem1681-98-46 09:28:00* Test Item Value Reference Range Interpretation Comments neutrophils as percent of blood leukocytes (test code = 770-8) 65 % [facility] Southplatelet wsyof5649-68-61 09:28:00* Test Item Value Reference Range Interpretation Comments platelet count (test code = 777-3) 296 X10E3/UL 150-379 [facility] Southred blood cell distribution wcvsv0891-62-90 09:28:00* Test Item Value Reference Range Interpretation Comments red blood cell distribution width (test code = 788-0) 13.4 % 12.3-15.4 [facility] corpuscular hemoglobin concentration, XTO9633-64-42 09:28:00* Test Item Value Reference Range Interpretation Comments mean corpuscular hemoglobin concentration, RBC (test code = 786-4) 33.5 G/DL 31.5-35.7 [facility] hemoglobin, TAT7114-59-04 09:28:00* Test Item Value Reference Range Interpretation Comments mean corpuscular hemoglobin, RBC (test code = 785-6) 32.3 pg 2 6.6-33.0 [facility]mean corpuscular volume, YAT8910-72-52 09:28:00* Test Item Value Reference Range Interpretation Comments mean corpuscular volume, RBC (test code = 787-2) 96 fL 79-97 [facility]hematocrit, gxqmn5088-64-13 09:28:00* Test Item Value Reference Range Interpretation Comments hematocrit, blood (test code = 4544-3) 42.1 % 37.5-51.0 [facility] Southhemoglobin, bsbqc7008-29-38 09:28:00* Test Item Value Reference Range Interpretation Comments hemoglobin, blood (test code = 718-7) 14.1 g/dL 12.6-17.7 [facility] Southerythrocyte (RBC) fwous1625-65-15 09:28:00* Test Item Value Reference Range Interpretation Comments erythrocyte (RBC) count (test code = 789-8) 4.37 X10E6/UL 4.14-5.80 [facility] Southleukocyte count, hjktv8235-56-69 09:28:00* Test Item Value Reference Range Interpretation Comments leukocyte count, blood (test code = 6690-2) 9.8 X10E3/UL 3.4-10.8 [facility] Southmicroalbumin/total urine vzfpdm2182-75-93 09:27:00* Test Item Value Reference Range Interpretation Comments microalbumin/total urine volume (test code = 96181-9) 16.6 mg/L [facility]creatinine, random, iymfn7374-18-27 09:27:00* Test Item Value Reference Range Interpretation Comments creatinine, random, urine (test code = 2161-8) 78.8 mg/dL [facility] Southblood glucose, mqrxfs4029-84-74 09:49:20* Test Item Value Reference Range Interpretation Comments blood glucose, random (test code = 2339-0) 285 mg/dL [facility]hemoglobin A1C, blood, as % of total vfvkcfsihl0667-99-21 09:57:00* Test Item Value Reference Range Interpretation Comments hemoglobin A1C, blood, as % of total hemoglobin (test code = 4548-4) 10.3 % 4.8-5.6 H [facility] SouthLDL cholesterol, gccwp2419-00-03 09:57:00* Test Item Value Reference Range Interpretation Comments LDL cholesterol, serum (test code = 2089-1) 139 mg/dL 0-99 H [facility] Southvery low density uabdmcvysmwz1753-48-56 09:57:00* Test Item Value Reference Range Interpretation Comments very low density lipoproteins (test code = 2091-7) 28 mg/dL 5-4 0 [facility] SouthHDL cholesterol, qlawf0434-44-53 09:57:00* Test Item Value Reference Range Interpretation Comments HDL cholesterol, serum (test code = 2085-9) 51 mg/dL >39 [facility] Southtriglyceride, serum, kidcuyi0473-95-35 09:57:00* Test Item Value Reference Range Interpretation Comments triglyceride, serum, fasting (test code = 2571-8) 142 mg/dL 0-14 9 [facility]cholesterol, bcogm2091-96-96 09:57:00* Test Item Value Reference Range Interpretation Comments cholesterol, serum (test code = 2093-3) 218 mg/dL 100-199 H [facility]alanine aminotransferase (SGPT), xiqgh4505-70-00 09:57:00 * Test Item Value Reference Range Interpretation Comments alanine aminotransferase (SGPT), serum (test code = 1742-6) 52 1/L 0-44 H [facility] Southaspartate aminotransferase (SGOT), siaiw6088-69-19 09:57:00* Test Item Value Reference Range Interpretation Comments aspartate aminotransferase (SGOT), serum (test code = 1920-8) 50 1/ L 0-40 H [facility] Southalkaline phosphatase, eglgf3414-75-21 09:57:00* Test Item Value Reference Range Interpretation Comments alkaline phosphatase, serum (test code = 1783-0) 198 1/L 39-11 7 [facility], [facility] [id number] 09:57:00* Test Item Value Reference Range Interpretation Comments bilirubin, serum, total (test code = 1975-2) 0.5 mg/dL 0.0-1.2 [facility], poajj0396-83-29 09:57:00* Test Item Value Reference Range Interpretation Comments albumin/globulin ratio, serum (test code = 1759-0) 0.9 1.1 -2.5 L [facility] Healthglobulin, [id number] 09:57:00* Test Item Value Reference Range Interpretation Comments globulin, serum (test code = 2336-6) 4.2 1.5-4.5 [facility] Healthalbumin, [id number] 09:57:00* Test Item Value Reference Range Interpretation Comments albumin, serum (test code = 1751-7) 3.9 g/dL 3.5-5.5 [facility] Healthprotein, total, iimat3249-14-68 09:57:00* Test Item Value Reference Range Interpretation Comments protein, total, serum (test code = 2885-2) 8.1 g/dL 6.0-8.5 [facility], sqbxd5264-47-79 09:57:00* Test Item Value Reference Range Interpretation Comments calcium, serum (test code = 2000-8) 9.8 mg/dL 8.7-10.2 [facility], venous rrxag0943-52-19 09:57:00* Test Item Value Reference Range Interpretation Comments carbon dioxide, venous blood (test code = 2027-1) 24 mmol/L 18-2 9 [facility]chlor[facility], dnsfc6931-52-81 09:57:00* Test Item Value Reference Range Interpretation Comments chloride, serum (test code = 2075-0) 100 mmol/L 96-106 [facility] Healthpotassium, cpnki3209-15-90 09:57:00* Test Item Value Reference Range Interpretation Comments potassium, serum (test code = 2823-3) 5.2 mmol/L 3.5-5.2 [facility] Healthsodium, gfqws4537-58-48 09:57:00* Test Item Value Reference Range Interpretation Comments sodium, serum (test code = 2951-2) 139 mmol/L 134-144 [facility]urea nitrogen/creatinine ratio, [id number] 09:57:00 * Test Item Value Reference Range Interpretation Comments urea nitrogen/creatinine ratio, serum (test code = 3097-3) 17 9-20 [facility] HealtheGFR if Vucgamxh8587-04-31 09:57:00* Test Item Value Reference Range Interpretation Comments eGFR if (test code = 08020-4) 105 mL/min/((173/100 ).m2) >59 [facility]Estimated Glomerular Filtration Rate (calc)2016-12-07 09:57:00* Test Item Value Reference Range Interpretation Comments Estimated Glomerular Filtration Rate (calc) (test code = 43793-9) 91 mL/min/((173/100).m2) >59 [facility]inine, [id number] 09:57:00* Test Item Value Reference Range Interpretation Comments creatinine, serum (test code = 2160-0) 0.96 mg/dL 0.76-1.27 [facility]urea nitrogen, injps8231-71-75 09:57:00* Test Item Value Reference Range Interpretation Comments urea nitrogen, blood (test code = 3094-0) 16 mg/dL 6-24 [facility]blood glucose, gjdmrc6728-10-12 09:57:00* Test Item Value Reference Range Interpretation Comments blood glucose, random (test code = 2339-0) 172 mg/dL 65-99 [facility], rsnjyn7205-04-89 08:30:17* Test Item Value Reference Range Interpretation Comments blood glucose, random (test code = 2339-0) 252 mg/dL [facility]hthyroid stimulating hormone, imxby1552-17-40 08:11:00* Test Item Value Reference Range Interpretation Comments thyroid stimulating hormone, serum (test code = 3016-3) 2.92 0 u[iU]/mL 0.450-4.500 [facility]vitamin D 25-hydroxy, ljzvu2426-68-63 08:11:00* Test Item Value Reference Range Interpretation Comments vitamin D 25-hydroxy, serum (test code = 96320-4) 31.4 ng/mL 30.0 -100.0 [facility]hemoglobin A1C, blood, as % of total ydjkkeypdw6223-60-06 08:11:00* Test Item Value Reference Range Interpretation Comments hemoglobin A1C, blood, as % of total hemoglobin (test code = 4548-4) 8.3 % 4.8-5.6 H [facility]LDL cholesterol, atncv3657-95-93 08:11:00* Test Item Value Reference Range Interpretation Comments LDL cholesterol, serum (test code = 2089-1) 101 mg/dL 0-99 H [facility]very low density skufioxadktg7654-34-70 08:11:00* Test Item Value Reference Range Interpretation Comments very low density lipoproteins (test code = 2091-7) 40 mg/dL 5-4 0 [facility]HDL cholesterol, tyzbw5528-83-24 08:11:00* Test Item Value Reference Range Interpretation Comments HDL cholesterol, serum (test code = 2085-9) 42 mg/dL >39 [facility]htriglyceride, serum, rrrvbdq3921-32-97 08:11:00* Test Item Value Reference Range Interpretation Comments triglyceride, serum, fasting (test code = 2571-8) 201 mg/dL 0-14 9 H [facility]cholesterol, gcywj3654-27-90 08:11:00* Test Item Value Reference Range Interpretation Comments cholesterol, serum (test code = 2093-3) 183 mg/dL 100-199 [facility]alanine aminotransferase (SGPT), ajbey0962-91-31 08:11:00 * Test Item Value Reference Range Interpretation Comments alanine aminotransferase (SGPT), serum (test code = 1742-6) 53 1/L 0-44 H [facility] Southaspartate aminotransferase (SGOT), qzwnk8755-38-10 08:11:00* Test Item Value Reference Range Interpretation Comments aspartate aminotransferase (SGOT), serum (test code = 1920-8) 43 1/ L 0-40 H [facility]alkaline phosphatase, pxfql5845-30-12 08:11:00* Test Item Value Reference Range Interpretation Comments alkaline phosphatase, serum (test code = 1783-0) 138 1/L 39-11 7 H [facility]bilirubin, serum, xmhuy1262-67-89 08:11:00* Test Item Value Reference Range Interpretation Comments bilirubin, serum, total (test code = 1975-2) 0.3 mg/dL 0.0-1.2 [facility]albumin/globulin ratio, gpjma0457-26-78 08:11:00* Test Item Value Reference Range Interpretation Comments albumin/globulin ratio, serum (test code = 1759-0) 1.0 1.1 -2.5 L [facility] Healthglobulin, juglc3723-66-53 08:11:00* Test Item Value Reference Range Interpretation Comments globulin, serum (test code = 2336-6) 3.8 1.5-4.5 [facility] Healthalbumin, [id number] 08:11:00* Test Item Value Reference Range Interpretation Comments albumin, serum (test code = 1751-7) 3.8 g/dL 3.5-5.5 [facility] Healthprotein, total, mvorz7413-21-52 08:11:00* Test Item Value Reference Range Interpretation Comments protein, total, serum (test code = 2885-2) 7.6 g/dL 6.0-8.5 [facility] Healthcalcium, vggbi9647-23-35 08:11:00* Test Item Value Reference Range Interpretation Comments calcium, serum (test code = 2000-8) 9.6 mg/dL 8.7-10.2 [facility]carbon dioxide, venous isrus9210-38-19 08:11:00* Test Item Value Reference Range Interpretation Comments carbon dioxide, venous blood (test code = 2027-1) 24 mmol/L 18-2 9 [facility] Healthchloride, etmik4713-93-83 08:11:00* Test Item Value Reference Range Interpretation Comments chloride, serum (test code = 2075-0) 101 mmol/L 97-106 [facility] Healthpotassium, [id number] 08:11:00* Test Item Value Reference Range Interpretation Comments potassium, serum (test code = 2823-3) 5.1 mmol/L 3.5-5.2 [facility] Healthsodium, vdieu6987-60-93 08:11:00* Test Item Value Reference Range Interpretation Comments sodium, serum (test code = 2951-2) 139 mmol/L 136-144 [facility] Healthurea nitrogen/creatinine ratio, gklin2363-09-80 08:11:00 * Test Item Value Reference Range Interpretation Comments urea nitrogen/creatinine ratio, serum (test code = 3097-3) 18 9-20 [facility] HealtheGFR if Lxfmutdr5624-23-61 08:11:00* Test Item Value Reference Range Interpretation Comments eGFR if (test code = 14938-9) 84 mL/min/((173/100) .m2) >59 [facility]Estimated Glomerular Filtration Rate (calc)2016-08-24 08:11:00* Test Item Value Reference Range Interpretation Comments Estimated Glomerular Filtration Rate (calc) (test code = 19093-1) 73 mL/min/((173/100).m2) >59 [facility]creatinine, [id number] 08:11:00* Test Item Value Reference Range Interpretation Comments creatinine, serum (test code = 2160-0) 1.16 mg/dL 0.76-1.27 [facility]ure[facility] nitrogen, fgohl0791-82-72 08:11:00* Test Item Value Reference Range Interpretation Comments urea nitrogen, blood (test code = 3094-0) 21 mg/dL 6-24 [facility]blood glucose, iziqzu0154-28-13 08:11:00* Test Item Value Reference Range Interpretation Comments blood glucose, random (test code = 2339-0) 214 mg/dL 65-99 [facility], dolqxv5274-85-45 08:28:37* Test Item Value Reference Range Interpretation Comments blood glucose, random (test code = 2339-0) 127 mg/dL [facility]hemoglobin A1C, blood, as % of total ilvkazcjjm8055-97-35 08:24:00* Test Item Value Reference Range Interpretation Comments hemoglobin A1C, blood, as % of total hemoglobin (test code = 4548-4) 7.8 % 4.8-5.6 H [facility]LDL cholesterol, iequo0224-70-08 08:24:00* Test Item Value Reference Range Interpretation Comments LDL cholesterol, serum (test code = 2089-1) 106 mg/dL 0-99 H [facility] Southvery low density hcspdfcqdlzn2329-49-89 08:24:00* Test Item Value Reference Range Interpretation Comments very low density lipoproteins (test code = 2091-7) 23 mg/dL 5-4 0 [facility]HDL cholesterol, fubxu5974-87-55 08:24:00* Test Item Value Reference Range Interpretation Comments HDL cholesterol, serum (test code = 2085-9) 43 mg/dL >39 [facility]htriglyceride, serum, hkykvim4963-91-15 08:24:00* Test Item Value Reference Range Interpretation Comments triglyceride, serum, fasting (test code = 2571-8) 116 mg/dL 0-14 9 [facility]cholesterol, stfmm7206-98-67 08:24:00* Test Item Value Reference Range Interpretation Comments cholesterol, serum (test code = 2093-3) 172 mg/dL 100-199 [facility]alanine aminotransferase (SGPT), rjfoj5729-92-09 08:24:00 * Test Item Value Reference Range Interpretation Comments alanine aminotransferase (SGPT), serum (test code = 1742-6) 44 1/L 0-44 [facility] Southaspartate aminotransferase (SGOT), fqyqb1625-38-40 08:24:00* Test Item Value Reference Range Interpretation Comments aspartate aminotransferase (SGOT), serum (test code = 1920-8) 38 1/ L 0-40 [facility] Southalkaline phosphatase, iloqi4792-29-21 08:24:00* Test Item Value Reference Range Interpretation Comments alkaline phosphatase, serum (test code = 1783-0) 108 1/L 39-11 7 [facility]bilirubin, serum, iopud9436-55-15 08:24:00* Test Item Value Reference Range Interpretation Comments bilirubin, serum, total (test code = 1975-2) 0.3 mg/dL 0.0-1.2 [facility]albumin/globulin ratio, lmgts2007-31-75 08:24:00* Test Item Value Reference Range Interpretation Comments albumin/globulin ratio, serum (test code = 1759-0) 1.1 1.1 -2.5 [facility] Healthglobulin, wbrfg2610-13-14 08:24:00* Test Item Value Reference Range Interpretation Comments globulin, serum (test code = 2336-6) 3.5 1.5-4.5 [facility] Healthalbumin, gvpql7446-48-99 08:24:00* Test Item Value Reference Range Interpretation Comments albumin, serum (test code = 1751-7) 3.9 g/dL 3.5-5.5 [facility]protein, total, fmytq3695-65-77 08:24:00* Test Item Value Reference Range Interpretation Comments protein, total, serum (test code = 2885-2) 7.4 g/dL 6.0-8.5 [facility] Healthcalcium, xwhdo5831-46-58 08:24:00* Test Item Value Reference Range Interpretation Comments calcium, serum (test code = 2000-8) 9.2 mg/dL 8.7-10.2 [facility]carbon dioxide, venous yqrrk9621-68-46 08:24:00* Test Item Value Reference Range Interpretation Comments carbon dioxide, venous blood (test code = 2027-1) 20 mmol/L 18-2 9 [facility] Healthchloride, xigjs8392-87-23 08:24:00* Test Item Value Reference Range Interpretation Comments chloride, serum (test code = 2075-0) 100 mmol/L 97-108 [facility] Healthpotassium, nmhso4827-21-13 08:24:00* Test Item Value Reference Range Interpretation Comments potassium, serum (test code = 2823-3) 4.2 mmol/L 3.5-5.2 [facility]sodium, llcjo4157-39-92 08:24:00* Test Item Value Reference Range Interpretation Comments sodium, serum (test code = 2951-2) 138 mmol/L 134-144 [facility]urea nitrogen/creatinine ratio, xbvxk4558-65-98 08:24:00 * Test Item Value Reference Range Interpretation Comments urea nitrogen/creatinine ratio, serum (test code = 3097-3) 21 9-20 [facility] HealtheGFR if Yduqooln7459-32-88 08:24:00* Test Item Value Reference Range Interpretation Comments eGFR if (test code = 49807-7) 103 mL/min/((173/100 ).m2) >59 [facility]Estimated Glomerular Filtration Rate (calc)2016-05-12 08:24:00* Test Item Value Reference Range Interpretation Comments Estimated Glomerular Filtration Rate (calc) (test code = 19336-2) 89 mL/min/((173/100).m2) >59 [facility]creatinine, qwxrm1519-44-33 08:24:00* Test Item Value Reference Range Interpretation Comments creatinine, serum (test code = 2160-0) 0.98 mg/dL 0.76-1.27 [facility]urea nitrogen, mpzpp3153-65-42 08:24:00* Test Item Value Reference Range Interpretation Comments urea nitrogen, blood (test code = 3094-0) 21 mg/dL 6-24 [facility]blood glucose, xahyuc1489-11-18 08:24:00* Test Item Value Reference Range Interpretation Comments blood glucose, random (test code = 2339-0) 165 mg/dL 65-99 H [facility] Southimmature granulocytes, percentage of total cells, blood 2016-05-12 08:24:00* Test Item Value Reference Range Interpretation Comments immature granulocytes, percentage of total cells, bloo d (test code = 75128-5) 0 % [facility]basophil count, merigxsg5587-07-63 08:24:00* Test Item Value Reference Range Interpretation Comments basophil count, absolute (test code = 35690-1) 0.0 x10E3/uL 0.0-0.2 [facility] SouthEosinophil Absolute Tvwie8490-31-81 08:24:00* Test Item Value Reference Range Interpretation Comments Eosinophil Absolute Count (test code = 49533-5) 0.5 X10E3/UL 0.0-0. 4 H [facility] Southmonocyte count, blood, pplyjubgm8227-38-50 08:24:00* Test Item Value Reference Range Interpretation Comments monocyte count, blood, automated (test code = 742-7) 0.7 X10E3/UL 0 .1-0.9 [facility]lymphocyte count, blood, gstfkuypw7868-95-03 08:24:00* Test Item Value Reference Range Interpretation Comments lymphocyte count, blood, automated (test code = 731-0) 2.6 X10E3/UL 0.7-3.1 [facility] SouthAbsolute Ygitmxnhnlb6839-79-48 08:24:00* Test Item Value Reference Range Interpretation Comments Absolute Neutrophils (test code = 72391-4) 5.4 X10E3/UL 1.4-7.0 [facility]basophils as percent of blood bwmiyvkven7129-60-59 08:24:00* Test Item Value Reference Range Interpretation Comments basophils as percent of blood leukocytes (test code = 707-0) 0 % [facility]heosinophils as percent of blood eskxhkmtnl9405-27-92 08:24:00* Test Item Value Reference Range Interpretation Comments eosinophils as percent of blood leukocytes (test code = 713-8) 5 % [facility] Healthmonocytes as percent of blood pqkwuoxmgk1878-47-47 08:24:00* Test Item Value Reference Range Interpretation Comments monocytes as percent of blood leukocytes (test code = 5905-5) 7 % [facility]lymphocytes as percent of blood tbawljmtye5603-61-74 08:24:00* Test Item Value Reference Range Interpretation Comments lymphocytes as percent of blood leukocytes (test code = 736-9) 28 % [facility] Southneutrophils as percent of blood dfzpwvkvqw7416-09-52 08:24:00* Test Item Value Reference Range Interpretation Comments neutrophils as percent of blood leukocytes (test code = 770-8) 60 % [facility] Southplatelet fyori3929-29-92 08:24:00* Test Item Value Reference Range Interpretation Comments platelet count (test code = 777-3) 290 X10E3/UL 150-379 [facility] Southred blood cell distribution dgspu1477-80-16 08:24:00* Test Item Value Reference Range Interpretation Comments red blood cell distribution width (test code = 788-0) 14.0 % 12.3-15.4 [facility] corpuscular hemoglobin concentration, [id number] 08:24:00* Test Item Value Reference Range Interpretation Comments mean corpuscular hemoglobin concentration, RBC (test code = 786-4) 33.0 G/DL 31.5-35.7 [facility] corpuscular hemoglobin, [id number] 08:24:00* Test Item Value Reference Range Interpretation Comments mean corpuscular hemoglobin, RBC (test code = 785-6) 32.4 pg 2 6.6-33.0 [facility] corpuscular volume, JFM5280-11-03 08:24:00* Test Item Value Reference Range Interpretation Comments mean corpuscular volume, RBC (test code = 787-2) 98 fL 79-97 H [facility]hematocrit, urfzp1608-92-26 08:24:00* Test Item Value Reference Range Interpretation Comments hematocrit, blood (test code = 4544-3) 41.2 % 37.5-51.0 [facility]hemoglobin, wiifo6312-32-63 08:24:00* Test Item Value Reference Range Interpretation Comments hemoglobin, blood (test code = 718-7) 13.6 g/dL 12.6-17.7 [facility] Southerythrocyte (RBC) xyhvl6221-24-68 08:24:00* Test Item Value Reference Range Interpretation Comments erythrocyte (RBC) count (test code = 789-8) 4.20 X10E6/UL 4.14-5.80 [facility]leukocyte count, jrkrq8465-57-85 08:24:00* Test Item Value Reference Range Interpretation Comments leukocyte count, blood (test code = 6690-2) 9.2 X10E3/UL 3.4-10.8 [facility]blood glucose, kauyio9463-59-33 08:56:23* Test Item Value Reference Range Interpretation Comments blood glucose, random (test code = 2339-0) 206 mg/dL [facility]hemoglobin A1C, blood, as % of total ryvkhufffs9096-16-14 08:07:00* Test Item Value Reference Range Interpretation Comments hemoglobin A1C, blood, as % of total hemoglobin (test code = 4548-4) 7.8 % 4.8-5.6 H [facility]LDL cholesterol, eutnc9703-96-02 08:07:00* Test Item Value Reference Range Interpretation Comments LDL cholesterol, serum (test code = 2089-1) 95 mg/dL 0-99 [facility] low density ndwjtxckolje4253-52-15 08:07:00* Test Item Value Reference Range Interpretation Comments very low density lipoproteins (test code = 2091-7) 38 mg/dL 5-4 0 [facility]HDL cholesterol, gzbds8731-07-92 08:07:00* Test Item Value Reference Range Interpretation Comments HDL cholesterol, serum (test code = 2085-9) 37 mg/dL >39 L [facility]htriglyceride, serum, zjhioqi7354-43-22 08:07:00* Test Item Value Reference Range Interpretation Comments triglyceride, serum, fasting (test code = 2571-8) 192 mg/dL 0-14 9 H [facility]cholesterol, iyctm0149-84-61 08:07:00* Test Item Value Reference Range Interpretation Comments cholesterol, serum (test code = 2093-3) 170 mg/dL 100-199 [facility] Healthalanine aminotransferase (SGPT), luosa9056-97-84 08:07:00 * Test Item Value Reference Range Interpretation Comments alanine aminotransferase (SGPT), serum (test code = 1742-6) 33 1/L 0-44 [facility] Southaspartate aminotransferase (SGOT), kizyr6942-72-86 08:07:00* Test Item Value Reference Range Interpretation Comments aspartate aminotransferase (SGOT), serum (test code = 1920-8) 31 1/ L 0-40 [facility]alkaline phosphatase, gijxz9696-39-41 08:07:00* Test Item Value Reference Range Interpretation Comments alkaline phosphatase, serum (test code = 1783-0) 124 1/L 39-11 7 [facility]bilirubin, serum, awdqe4734-10-15 08:07:00* Test Item Value Reference Range Interpretation Comments bilirubin, serum, total (test code = 1975-2) 0.3 mg/dL 0.0-1.2 [facility] Healthalbumin/globulin ratio, jbadb7287-17-41 08:07:00* Test Item Value Reference Range Interpretation Comments albumin/globulin ratio, serum (test code = 1759-0) 1.0 1.1 -2.5 L [facility] Healthglobulin, zuypf3226-86-83 08:07:00* Test Item Value Reference Range Interpretation Comments globulin, serum (test code = 2336-6) 3.8 1.5-4.5 [facility] Healthalbumin, szgti4568-87-78 08:07:00* Test Item Value Reference Range Interpretation Comments albumin, serum (test code = 1751-7) 3.9 g/dL 3.5-5.5 [facility] Healthprotein, total, thkmg6539-81-23 08:07:00* Test Item Value Reference Range Interpretation Comments protein, total, serum (test code = 2885-2) 7.7 g/dL 6.0-8.5 [facility] Healthcalcium, utkyf0101-51-16 08:07:00* Test Item Value Reference Range Interpretation Comments calcium, serum (test code = 2000-8) 9.5 mg/dL 8.7-10.2 [facility]carbon dioxide, venous rxrml4187-23-46 08:07:00* Test Item Value Reference Range Interpretation Comments carbon dioxide, venous blood (test code = 2027-1) 24 mmol/L 18-2 9 [facility] Healthchloride, ytvtj0647-61-77 08:07:00* Test Item Value Reference Range Interpretation Comments chloride, serum (test code = 2075-0) 98 mmol/L 97-108 [facility] Healthpotassium, xvgwf4811-31-09 08:07:00* Test Item Value Reference Range Interpretation Comments potassium, serum (test code = 2823-3) 4.8 mmol/L 3.5-5.2 [facility]sodium, snkat0690-91-41 08:07:00* Test Item Value Reference Range Interpretation Comments sodium, serum (test code = 2951-2) 137 mmol/L 134-144 [facility]urea nitrogen/creatinine ratio, hpwha6463-30-30 08:07:00 * Test Item Value Reference Range Interpretation Comments urea nitrogen/creatinine ratio, serum (test code = 3097-3) 16 9-20 [facility] HealtheGFR if Vztilowz7178-39-17 08:07:00* Test Item Value Reference Range Interpretation Comments eGFR if (test code = 47452-7) 96 mL/min/((173/100) .m2) >59 [facility] SouthEstimated Glomerular Filtration Rate (calc)2016-01-27 08:07:00* Test Item Value Reference Range Interpretation Comments Estimated Glomerular Filtration Rate (calc) (test code = 39802-9) 83 mL/min/((173/100).m2) >59 [facility]creatinine, xtpjj2494-56-39 08:07:00* Test Item Value Reference Range Interpretation Comments creatinine, serum (test code = 2160-0) 1.04 mg/dL 0.76-1.27 [facility] Southurea nitrogen, tuord5554-78-47 08:07:00* Test Item Value Reference Range Interpretation Comments urea nitrogen, blood (test code = 3094-0) 17 mg/dL 6-24 [facility] Southblood glucose, azcxtg8428-58-08 08:07:00* Test Item Value Reference Range Interpretation Comments blood glucose, random (test code = 2339-0) 280 mg/dL 65-99 H [facility] Southimmature granulocytes, percentage of total cells, blood 2016-01-27 08:07:00* Test Item Value Reference Range Interpretation Comments immature granulocytes, percentage of total cells, bloo d (test code = 00522-3) 0 % [facility]basophil count, ryluvlju2132-47-80 08:07:00* Test Item Value Reference Range Interpretation Comments basophil count, absolute (test code = 28215-8) 0.0 x10E3/uL 0.0-0.2 [facility] HealthEosinophil Absolute Ajnzv0470-10-77 08:07:00* Test Item Value Reference Range Interpretation Comments Eosinophil Absolute Count (test code = 13907-8) 0.3 X10E3/UL 0.0-0. 4 [facility] Southmonocyte count, blood, zacgtiray7726-15-58 08:07:00* Test Item Value Reference Range Interpretation Comments monocyte count, blood, automated (test code = 742-7) 0.6 X10E3/UL 0 .1-0.9 [facility]lymphocyte count, blood, nxlijzmwj0818-47-38 08:07:00* Test Item Value Reference Range Interpretation Comments lymphocyte count, blood, automated (test code = 731-0) 1.9 X10E3/UL 0.7-3.1 [facility] SouthAbsolute Musxkspphvu3540-58-11 08:07:00* Test Item Value Reference Range Interpretation Comments Absolute Neutrophils (test code = 80461-0) 5.3 X10E3/UL 1.4-7.0 [facility] percent of blood baqzaaldql7030-73-57 08:07:00* Test Item Value Reference Range Interpretation Comments basophils as percent of blood leukocytes (test code = 707-0) 0 % [facility]heosinophils as percent of blood rcyhulfvuh2730-52-51 08:07:00* Test Item Value Reference Range Interpretation Comments eosinophils as percent of blood leukocytes (test code = 713-8) 4 % [facility]mon[facility] percent of blood eklrtwcvom6566-37-45 08:07:00* Test Item Value Reference Range Interpretation Comments monocytes as percent of blood leukocytes (test code = 5905-5) 8 % [facility] as percent of blood djppfgsykk2444-89-90 08:07:00* Test Item Value Reference Range Interpretation Comments lymphocytes as percent of blood leukocytes (test code = 736-9) 24 % [facility]neutrophils as percent of blood ecrsumiovs0767-26-08 08:07:00* Test Item Value Reference Range Interpretation Comments neutrophils as percent of blood leukocytes (test code = 770-8) 64 % [facility]platelet xgvow1784-01-31 08:07:00* Test Item Value Reference Range Interpretation Comments platelet count (test code = 777-3) 411 X10E3/UL 150-379 H [facility]red blood cell distribution temiw9627-52-54 08:07:00* Test Item Value Reference Range Interpretation Comments red blood cell distribution width (test code = 788-0) 13.1 % 12.3-15.4 [facility] corpuscular hemoglobin concentration, [id number] 08:07:00* Test Item Value Reference Range Interpretation Comments mean corpuscular hemoglobin concentration, RBC (test code = 786-4) 34.0 G/DL 31.5-35.7 [facility] corpuscular hemoglobin, [id number] 08:07:00* Test Item Value Reference Range Interpretation Comments mean corpuscular hemoglobin, RBC (test code = 785-6) 31.9 pg 2 6.6-33.0 [facility] corpuscular volume, [id number] 08:07:00* Test Item Value Reference Range Interpretation Comments mean corpuscular volume, RBC (test code = 787-2) 94 fL 79-97 [facility]hematocrit, nssjq1638-83-41 08:07:00* Test Item Value Reference Range Interpretation Comments hematocrit, blood (test code = 4544-3) 40.9 % 37.5-51.0 [facility]hemoglobin, bxpsy4951-37-09 08:07:00* Test Item Value Reference Range Interpretation Comments hemoglobin, blood (test code = 718-7) 13.9 g/dL 12.6-17.7 [facility]herythrocyte (RBC) ojjyg6695-82-22 08:07:00* Test Item Value Reference Range Interpretation Comments erythrocyte (RBC) count (test code = 789-8) 4.36 X10E6/UL 4.14-5.80 [facility]leukocyte count, rcxyg8043-97-88 08:07:00* Test Item Value Reference Range Interpretation Comments leukocyte count, blood (test code = 6690-2) 8.2 X10E3/UL 3.4-10.8 [facility]blood glucose, iuhlpz5874-55-75 15:02:24* Test Item Value Reference Range Interpretation Comments blood glucose, random (test code = 2339-0) 120 mg/dL [facility]blood glucose, yjezrw1649-81-24 10:04:20* Test Item Value Reference Range Interpretation Comments blood glucose, random (test code = 2339-0) 200 mg/dL [facility] SouthQuantiferon Gold TB blood test for tuberculosis screening 2015-10-14 17:26:00* Test Item Value Reference Range Interpretation Comments Quantiferon Gold TB blood test for tuberculosis screen ing (test code = 05048-8) Negative Negative [facility]hepatitis B surface tqfkrng2245-58-56 17:26:00* Test Item Value Reference Range Interpretation Comments hepatitis B surface antigen (test code = 79) Negative Negative [facility]lipase, rvtbr3082-56-21 17:26:00* Test Item Value Reference Range Interpretation Comments lipase, serum (test code = 3040-3) 38 U/L 0-59 [facility]amylase, utxnp7636-12-48 17:26:00* Test Item Value Reference Range Interpretation Comments amylase, serum (test code = 1798-8) 44 1/L 31-124 [facility] Souththyroid stimulating hormone, jqbkm3221-26-35 17:26:00* Test Item Value Reference Range Interpretation Comments thyroid stimulating hormone, serum (test code = 3016-3) 2.24 0 u[iU]/mL 0.450-4.500 [facility] antibody, jqcxb3452-44-75 17:26:00* Test Item Value Reference Range Interpretation Comments hepatitis C antibody, serum (test code = 5199-5) 0.1 0.0-0 .9 [facility]HIV-CMIA (Chemiluminescent Microparticle Immuno Assay) 2015-10-14 17:26:00* Test Item Value Reference Range Interpretation Comments HIV-CMIA (Chemiluminescent Microparticle Immuno Assay) (test code = 352470) Non Reactive Non Reactive [facility]vitamin D 25-hydroxy, yuxbm1273-58-65 17:26:00* Test Item Value Reference Range Interpretation Comments vitamin D 25-hydroxy, serum (test code = 91385-7) 22.1 ng/mL 30.0 -100.0 L [facility] Southrapid plasma reagin antibody, refaw0579-17-94 17:26:00* Test Item Value Reference Range Interpretation Comments rapid plasma reagin antibody, serum (test code = 5291-0) Non Reactive Non Reactive [facility]hemoglobin A1C, blood, as % of total rivjxncvcj3778-88-54 17:26:00* Test Item Value Reference Range Interpretation Comments hemoglobin A1C, blood, as % of total hemoglobin (test code = 4548-4) 9.4 % 4.8-5.6 H [facility]prostate specific xlnzsqq5976-05-26 17:26:00* Test Item Value Reference Range Interpretation Comments prostate specific antigen (test code = 2857-1) 0.7 ng/mL 0.0-4.0 [facility] SouthNeisseria gonorrhoeae DNA jbzfo2388-33-28 17:26:00* Test Item Value Reference Range Interpretation Comments Neisseria gonorrhoeae DNA probe (test code = 15513-5) Negative Negative [facility]chlamydia DNA mowru9650-62-25 17:26:00* Test Item Value Reference Range Interpretation Comments chlamydia DNA probe (test code = 94357-9) Negative Negative [facility] SouthHelicobacter pylori antibody, IgG, eiram8497-48-34 17:26:00* Test Item Value Reference Range Interpretation Comments Helicobacter pylori antibody, IgG, serum (test code = 2437) 5.4 U/m L 0.0-0.8 H [facility]htestosterone, serum, qrgb3579-16-75 17:26:00* Test Item Value Reference Range Interpretation Comments testosterone, serum, free (test code = 2991-8) 5.7 pg/mL 7.2-24. 0 L [facility]htestosterone, zghpo0586-02-56 17:26:00* Test Item Value Reference Range Interpretation Comments testosterone, total (test code = 2986-8) 776 ng/dL 348-1197 [facility]LDL cholesterol, ytdjd7486-35-87 17:26:00* Test Item Value Reference Range Interpretation Comments LDL cholesterol, serum (test code = 2089-1) 150 mg/dL 0-99 H [facility] Southvery low density hfjhusdssejs1766-95-19 17:26:00* Test Item Value Reference Range Interpretation Comments very low density lipoproteins (test code = 2091-7) 69 mg/dL 5-4 0 H [facility] SouthHDL cholesterol, eelyp8734-80-67 17:26:00* Test Item Value Reference Range Interpretation Comments HDL cholesterol, serum (test code = 2085-9) 47 mg/dL >39 [facility]htriglyceride, serum, pwozpmn4602-27-82 17:26:00* Test Item Value Reference Range Interpretation Comments triglyceride, serum, fasting (test code = 2571-8) 345 mg/dL 0-14 9 H [facility]cholesterol, sauis3466-07-27 17:26:00* Test Item Value Reference Range Interpretation Comments cholesterol, serum (test code = 2093-3) 266 mg/dL 100-199 H [facility]bacteria, urine akmhxmqlky2221-62-56 17:26:00* Test Item Value Reference Range Interpretation Comments bacteria, urine microscopy (test code = 5769-5) None seen None s een/Few [facility] Southmucus on iotkxvaqiz2129-62-97 17:26:00* Test Item Value Reference Range Interpretation Comments mucus on urinalysis (test code = 8247-9) Present [facility] Southepithelial cells, ekrap6849-81-69 17:26:00* Test Item Value Reference Range Interpretation Comments epithelial cells, urine (test code = 5787-7) 0-10 0-10 [facility] SouthRBC, Lltus4028-87-55 17:26:00* Test Item Value Reference Range Interpretation Comments RBC, Urine (test code = 04915-8) 0-2 /hpf 0-2 [facility] SouthWBC urine on ptjtgcyncb3941-62-18 17:26:00* Test Item Value Reference Range Interpretation Comments WBC urine on microscopy (test code = 1016) 0-5 /hpf 0-5 [facility]microscopic cywa0503-98-31 17:26:00* Test Item Value Reference Range Interpretation Comments microscopic exam (test code = 17598) See below: [facility]urinalysis, microscopic tiqxajcgfyi4380-90-00 17:26:00* Test Item Value Reference Range Interpretation Comments urinalysis, microscopic examination (test code = 55985-8) MICRON [facility] Southnitrate, jrgbv7499-97-23 17:26:00* Test Item Value Reference Range Interpretation Comments nitrate, urine (test code = 95811-2) Negative Negative [facility] Southurobilinogen, urine, semiquantitative (dipstick) 2015-10-14 17:26:00* Test Item Value Reference Range Interpretation Comments urobilinogen, urine, semiquantitative (dipstick) (test code = 5818-0) 0.2 0.2-1.0 [facility]bilirubin, bwkgx0889-23-12 17:26:00* Test Item Value Reference Range Interpretation Comments bilirubin, urine (test code = 5770-3) Negative Negative [facility] Southketones, urine, by test savbq6682-13-73 17:26:00* Test Item Value Reference Range Interpretation Comments ketones, urine, by test strip (test code = 5797-6) Negative Neg ative [facility]glucose, urine, xtbhuoysckwqgepo3885-97-66 17:26:00* Test Item Value Reference Range Interpretation Comments glucose, urine, semiquantitative (test code = 5792-7) 3+ Negative A [facility]protein, urine, semiquantitative (dipstick)2015-10-14 17:26:00* Test Item Value Reference Range Interpretation Comments protein, urine, semiquantitative (dipstick) (test code = 175 3-3) Negative Negative/Trace [facility]leukocyte esterase, urine, by mfhqwbjx9954-10-86 17:26:00 * Test Item Value Reference Range Interpretation Comments leukocyte esterase, urine, by dipstick (test code = 5799-2) Negativ e Negative [facility] Southappearance, jvbvo0501-58-73 17:26:00* Test Item Value Reference Range Interpretation Comments appearance, urine (test code = 5767-9) Clear Clear [facility] Southurine axcbk7018-46-41 17:26:00* Test Item Value Reference Range Interpretation Comments urine color (test code = 5778-6) Yellow Yellow [facility] SouthpH, urine, pimddwgfsunaceix6313-01-91 17:26:00* Test Item Value Reference Range Interpretation Comments pH, urine, semiquantitative (test code = 5803-2) 5.5 5.0-7 .5 [facility]specific gravity, body yhqql8003-89-58 17:26:00* Test Item Value Reference Range Interpretation Comments specific gravity, body fluid (test code = 2964-5) >1.030 1.00 5-1.030 H [facility] Southalanine aminotransferase (SGPT), pnesh4471-24-47 17:26:00 * Test Item Value Reference Range Interpretation Comments alanine aminotransferase (SGPT), serum (test code = 1742-6) 45 1/L 0-44 H [facility] Southaspartate aminotransferase (SGOT), vkdlm4904-53-04 17:26:00* Test Item Value Reference Range Interpretation Comments aspartate aminotransferase (SGOT), serum (test code = 1920-8) 28 1/ L 0-40 [facility] Southalkaline phosphatase, aljyz6868-99-28 17:26:00* Test Item Value Reference Range Interpretation Comments alkaline phosphatase, serum (test code = 1783-0) 105 1/L 39-11 7 [facility]bilirubin, serum, urlos7649-04-00 17:26:00* Test Item Value Reference Range Interpretation Comments bilirubin, serum, total (test code = 1975-2) <0.2 mg/dL 0.0-1.2 [facility]albumin/globulin ratio, kexqi1812-63-68 17:26:00* Test Item Value Reference Range Interpretation Comments albumin/globulin ratio, serum (test code = 1759-0) 1.3 1.1 -2.5 [facility] Southglobulin, kygby1199-60-42 17:26:00* Test Item Value Reference Range Interpretation Comments globulin, serum (test code = 2336-6) 3.5 1.5-4.5 [facility] Southalbumin, tzcik4972-58-33 17:26:00* Test Item Value Reference Range Interpretation Comments albumin, serum (test code = 1751-7) 4.4 g/dL 3.5-5.5 [facility] Healthprotein, total, muafd9492-96-78 17:26:00* Test Item Value Reference Range Interpretation Comments protein, total, serum (test code = 2885-2) 7.9 g/dL 6.0-8.5 [facility]calcium, poatw1514-41-07 17:26:00* Test Item Value Reference Range Interpretation Comments calcium, serum (test code = 2000-8) 10.2 mg/dL 8.7-10.2 [facility] Southcarbon dioxide, venous ozncm7471-02-47 17:26:00* Test Item Value Reference Range Interpretation Comments carbon dioxide, venous blood (test code = 2027-1) 25 mmol/L 18-2 9 [facility] Healthchloride, fubvn0777-74-83 17:26:00* Test Item Value Reference Range Interpretation Comments chloride, serum (test code = 2075-0) 95 mmol/L 97-108 L [facility] Southpotassium, eplfb8826-87-45 17:26:00* Test Item Value Reference Range Interpretation Comments potassium, serum (test code = 2823-3) 4.2 mmol/L 3.5-5.2 [facility]sodium, eiumm3191-18-30 17:26:00* Test Item Value Reference Range Interpretation Comments sodium, serum (test code = 2951-2) 136 mmol/L 134-144 [facility] Southurea nitrogen/creatinine ratio, refrl4497-03-56 17:26:00 * Test Item Value Reference Range Interpretation Comments urea nitrogen/creatinine ratio, serum (test code = 3097-3) 18 9-20 [facility] HealtheGFR if Npogxbjh9200-74-37 17:26:00* Test Item Value Reference Range Interpretation Comments eGFR if (test code = 82105-3) 105 mL/min/((173/100 ).m2) >59 [facility] SouthEstimated Glomerular Filtration Rate (calc)2015-10-14 17:26:00* Test Item Value Reference Range Interpretation Comments Estimated Glomerular Filtration Rate (calc) (test code = 73002-7) 91 mL/min/((173/100).m2) >59 [facility]creatinine, xqoyf4198-85-63 17:26:00* Test Item Value Reference Range Interpretation Comments creatinine, serum (test code = 2160-0) 0.97 mg/dL 0.76-1.27 [facility] Southurea nitrogen, lhpvp9315-31-20 17:26:00* Test Item Value Reference Range Interpretation Comments urea nitrogen, blood (test code = 3094-0) 17 mg/dL 6-24 [facility] Southblood glucose, gadhcb5525-27-97 17:26:00* Test Item Value Reference Range Interpretation Comments blood glucose, random (test code = 2339-0) 219 mg/dL 65-99 H [facility] Southimmature granulocytes, percentage of total cells, blood 2015-10-14 17:26:00* Test Item Value Reference Range Interpretation Comments immature granulocytes, percentage of total cells, bloo d (test code = 94858-4) 0 % [facility] Southbasophil count, fljjjzdi9228-33-10 17:26:00* Test Item Value Reference Range Interpretation Comments basophil count, absolute (test code = 74018-0) 0.1 x10E3/uL 0.0-0.2 [facility] SouthEosinophil Absolute Lhxzz9008-83-24 17:26:00* Test Item Value Reference Range Interpretation Comments Eosinophil Absolute Count (test code = 84310-0) 0.2 X10E3/UL 0.0-0. 4 [facility] Southmonocyte count, blood, lzrmdzijp2652-03-38 17:26:00* Test Item Value Reference Range Interpretation Comments monocyte count, blood, automated (test code = 742-7) 0.8 X10E3/UL 0 .1-0.9 [facility] Southlymphocyte count, blood, wmfghquak4518-78-24 17:26:00* Test Item Value Reference Range Interpretation Comments lymphocyte count, blood, automated (test code = 731-0) 2.8 X10E3/UL 0.7-3.1 [facility] SouthAbsolute Nkaxmhvweob6907-80-84 17:26:00* Test Item Value Reference Range Interpretation Comments Absolute Neutrophils (test code = 64544-4) 5.7 X10E3/UL 1.4-7.0 [facility]basophils as percent of blood kufvqyutzb1036-20-77 17:26:00* Test Item Value Reference Range Interpretation Comments basophils as percent of blood leukocytes (test code = 707-0) 1 % [facility]heosinophils as percent of blood xvdthsufgk2594-73-43 17:26:00* Test Item Value Reference Range Interpretation Comments eosinophils as percent of blood leukocytes (test code = 713-8) 2 % [facility] Healthmonocytes as percent of blood rdtcotqzec1580-19-92 17:26:00* Test Item Value Reference Range Interpretation Comments monocytes as percent of blood leukocytes (test code = 5905-5) 8 % [facility]lymphocytes as percent of blood bhijlhzejz0069-11-47 17:26:00* Test Item Value Reference Range Interpretation Comments lymphocytes as percent of blood leukocytes (test code = 736-9) 29 % [facility] Southneutrophils as percent of blood mobvtsfemc6933-28-92 17:26:00* Test Item Value Reference Range Interpretation Comments neutrophils as percent of blood leukocytes (test code = 770-8) 60 % [facility] Southplatelet nksat2382-84-59 17:26:00* Test Item Value Reference Range Interpretation Comments platelet count (test code = 777-3) 332 X10E3/UL 150-379 [facility] Southred blood cell distribution bhbsf6019-12-88 17:26:00* Test Item Value Reference Range Interpretation Comments red blood cell distribution width (test code = 788-0) 13.7 % 12.3-15.4 [facility] corpuscular hemoglobin concentration, HHY9132-96-09 17:26:00* Test Item Value Reference Range Interpretation Comments mean corpuscular hemoglobin concentration, RBC (test code = 786-4) 35.0 G/DL 31.5-35.7 [facility] corpuscular hemoglobin, [id number] 17:26:00* Test Item Value Reference Range Interpretation Comments mean corpuscular hemoglobin, RBC (test code = 785-6) 32.0 pg 2 6.6-33.0 [facility] corpuscular volume, IAE1164-89-45 17:26:00* Test Item Value Reference Range Interpretation Comments mean corpuscular volume, RBC (test code = 787-2) 92 fL 79-97 [facility]hematocrit, sfxdi1462-71-04 17:26:00* Test Item Value Reference Range Interpretation Comments hematocrit, blood (test code = 4544-3) 40.9 % 37.5-51.0 [facility]hemoglobin, bkqni1201-62-07 17:26:00* Test Item Value Reference Range Interpretation Comments hemoglobin, blood (test code = 718-7) 14.3 g/dL 12.6-17.7 [facility] Southerythrocyte (RBC) znvzy3024-90-76 17:26:00* Test Item Value Reference Range Interpretation Comments erythrocyte (RBC) count (test code = 789-8) 4.47 X10E6/UL 4.14-5.80 [facility] Southleukocyte count, elksk4173-62-18 17:26:00* Test Item Value Reference Range Interpretation Comments leukocyte count, blood (test code = 6690-2) 9.5 X10E3/UL 3.4-10.8 [facility] Southblood glucose, lizcqu6500-12-45 16:24:35* Test Item Value Reference Range Interpretation Comments blood glucose, random (test code = 2339-0) 218 mg/dL [facility]
== END 2020-09-12 16:36 | disposition home or self-care (01) | DRG 299 ==
LOC: ER 15:53 → ERHOLD 22:50 → MED/SURG3 09-10 02:56
PROVIDERS: ADMIT Internal Medicine; ATTEND Internal Medicine
PROC: 5A1D70Z Performance of Urinary Filtration, Intermittent, Less than 6 Hours Per Day (ICD-10-PCS; principal; 2020-09-10)
DX: E11.52 Type 2 diabetes mellitus with diabetic peripheral angiopathy with gangrene (principal); N18.6 End stage renal disease; I12.0 Hypertensive chronic kidney disease with stage 5 chronic kidney disease or end stage renal disease; N39.0 Urinary tract infection, site not specified; E87.1 Hypo-osmolality and hyponatremia; I96 Gangrene, not elsewhere classified; N49.2 Inflammatory disorders of scrotum; E11.22 Type 2 diabetes mellitus with diabetic chronic kidney disease; Z99.2 Dependence on renal dialysis; Z79.4 Long term (current) use of insulin; E11.65 Type 2 diabetes mellitus with hyperglycemia; E21.3 Hyperparathyroidism, unspecified; E11.42 Type 2 diabetes mellitus with diabetic polyneuropathy; D63.1 Anemia in chronic kidney disease; N47.1 Phimosis; R31.29 Other microscopic hematuria; E66.9 Obesity, unspecified; Z68.31 Body mass index [BMI] 31.0-31.9, adult; I25.10 Atherosclerotic heart disease of native coronary artery without angina pectoris; E78.5 Hyperlipidemia, unspecified
CPT/HCPCS: 36415; 74177; 76870; 80048; 80053; 81001; 82550; 82553; 82948; 83880; 84484; 85025; 86705; 86706; 87086; 87340; 93976; 99251; 99284; J0360; J1170; J1644; J1815; J1885; J2270; J2405; J2543; J3370; J7030; Q0162; Q9967

== ENCOUNTER 2021-02-07 14:48 | Emergency (ER) | payer MEDICARE, BC ==
[~2021-02-07] VITALS: Ht 172.7 cm; Wt 93.4 kg
[2021-02-07 15:17] LABS: BASOPHILS # (AUTO) 0.1 (0.0-0.1); BASOPHILS % 0.4 % (0.0-1.0); EOSINOPHILS # (AUTO) 0.2 (0.0-0.4); EOSINOPHILS % 1.1 % (0.0-6.0); HEMATOCRIT 26.2 % (38.2-49.6); HEMOGLOBIN 8.6 g/dL (14.0-18.0); LYMPHOCYTES # (AUTO) 0.9 (1.0-3.2); LYMPHOCYTES % 5.7 % (18.0-39.1); MEAN CORPUSCULAR HEMOGLOBIN 30.5 pg (28-32); MEAN CORPUSCULAR HGB CONC 32.8 g/dL (31-35); MEAN CORPUSCULAR VOLUME 92.9 fL (81-99); MONOCYTES % 6.4 % (4.4-11.3); NEUTROPHILS # (AUTO) 13.8 (2.1-6.9); NEUTROPHILS % 85.7 % (38.7-80.0); PLATELET COUNT 350 x10e3/uL (140-360); RED BLOOD COUNT 2.82 x10e6/uL (4.3-5.7); RED CELL DISTRIBUTION WIDTH 13.2 % (11.7-14.4)
[2021-02-07] MEDS: SODIUM CHLORIDE 0.9% 1000ML 1,000 ML IV ONE ×2 (15:30→16:12)
[2021-02-07] MEDS: PIPERACILLIN/TAZOBAC 3.375 GM in SODIUM CHLORIDE 0.9% 50ML 50 ML IV SCH ×2 (15:30→16:12)
[2021-02-07 15:34] LABS: ALBUMIN 2.2 g/dL (3.5-5.0); ALBUMIN/GLOBULIN RATIO 0.3 (0.8-2.0); ANION GAP 24.7 mmol/L (8-16); CALCIUM 8.1 mg/dL (8.4-10.2); CREATININE, SERUM 12.27 mg/dL (0.72-1.25); POTASSIUM 5.7 mmol/L (3.5-5.1)
[2021-02-07] MEDS ORDERED: INSULIN REGULAR, HUMAN 100 UNIT/1 ML 3ML VIAL IV STA (16:07)
[2021-02-07] MEDS ORDERED: DEXTROSE 50% SYRINGE 50 ML IV STA (16:07)
[2021-02-07] MEDS ORDERED: FUROSEMIDE INJ 10 MG/ML 4 ML VIAL IV ONE (16:15)
[2021-02-07] MEDS ORDERED: CEPHALEXIN500 MG PO (16:20)
[2021-02-07] MEDS ORDERED: BACTRIM DS TAB1 EACH PO (16:20)
[2021-02-07] MEDS ORDERED: TYLENOL # 31 EA PO (16:22)
[2021-02-07 17:01] VITALS: BP 163/77
== END 2021-02-07 17:04 | disposition home or self-care (01) ==
LOC: ER 14:55
DX: E11.621 Type 2 diabetes mellitus with foot ulcer (principal); L97.519 Non-pressure chronic ulcer of other part of right foot with unspecified severity; L03.115 Cellulitis of right lower limb; E11.22 Type 2 diabetes mellitus with diabetic chronic kidney disease; I12.9 Hypertensive chronic kidney disease with stage 1 through stage 4 chronic kidney disease, or unspecified chronic kidney disease; N18.9 Chronic kidney disease, unspecified; E87.5 Hyperkalemia
CPT/HCPCS: 36415; 73630; 80053; 85025; 93005; 99284; J1817; J1940; J2543; J7030; J7799

== ENCOUNTER 2021-02-15 06:44 | Emergency (ER) | payer MEDICARE, BC ==
[~2021-02-15] VITALS: Ht 172.7 cm; Wt 93.4 kg
[~2021-02-15 06:44] MED LIST changes: +BACTRIM DS TAB1 EACH PO; +CEPHALEXIN500 MG PO; +TYLENOL # 31 EA PO
[2021-02-15] MEDS ORDERED: HYDROCODONE/APAP 7.5MG-325MG 1 EA TAB PO ONE (08:00)
[2021-02-15 09:18] VITALS: BP 122/62
== END 2021-02-15 09:20 | disposition home or self-care (01) ==
LOC: ER 06:48
DX: R10.32 Left lower quadrant pain (principal); S39.011A Strain of muscle, fascia and tendon of abdomen, initial encounter; I12.0 Hypertensive chronic kidney disease with stage 5 chronic kidney disease or end stage renal disease; E11.22 Type 2 diabetes mellitus with diabetic chronic kidney disease; N18.6 End stage renal disease; Z99.2 Dependence on renal dialysis
CPT/HCPCS: 93971; 99283

== ENCOUNTER 2021-02-17 12:10 | Inpatient (IN) | payer MEDICARE, BC ==
[~2021-02-17] VITALS: Ht 172.7 cm; Wt 83.7 kg
[2021-02-17] MEDS ORDERED: VANCOMYCIN 1GM/NS 250 ML 250 ML IV ONE (14:00)
[2021-02-17 14:06] LABS: BASOPHILS # (AUTO) 0.1 (0.0-0.1); BASOPHILS % 0.6 % (0.0-1.0); EOSINOPHILS # (AUTO) 0.3 (0.0-0.4); EOSINOPHILS % 2.6 % (0.0-6.0); HEMATOCRIT 27.3 % (38.2-49.6); HEMOGLOBIN 8.7 g/dL (14.0-18.0); LYMPHOCYTES # (AUTO) 1.5 (1.0-3.2); LYMPHOCYTES % 14.1 % (18.0-39.1); MEAN CORPUSCULAR HEMOGLOBIN 30.2 pg (28-32); MEAN CORPUSCULAR HGB CONC 31.9 g/dL (31-35); MEAN CORPUSCULAR VOLUME 94.8 fL (81-99); MONOCYTES # (AUTO) 0.5 (0.2-0.8); MONOCYTES % 4.8 % (4.4-11.3); NEUTROPHILS % 77.5 % (38.7-80.0); PLATELET COUNT 342 x10e3/uL (140-360); RED BLOOD COUNT 2.88 x10e6/uL (4.3-5.7); RED CELL DISTRIBUTION WIDTH 13.3 % (11.7-14.4)
[2021-02-17 14:09] LABS: INR 1.03; PROTHROMBIN TIME 14.1 seconds (11.9-14.5)
[2021-02-17 14:10] LABS: PARTIAL THROMBOPLASTIN TIME 40.5 seconds (23.8-35.5)
[2021-02-17] MEDS ORDERED: HYDROCODONE/APAP 10MG-325MG TAB PO ONE (14:15)
[2021-02-17 14:24] LABS: ALBUMIN 2.2 g/dL (3.5-5.0); ALBUMIN/GLOBULIN RATIO 0.3 (0.8-2.0); ANION GAP 13.5 mmol/L (8-16); CALCIUM 7.8 mg/dL (8.4-10.2); CREATININE, SERUM 6.04 mg/dL (0.72-1.25); MAGNESIUM 2.2 MG/DL (1.3-2.1); POTASSIUM 4.5 mmol/L (3.5-5.1)
[2021-02-17 14:51] LABS: CLARITY,URINE SL CLOUDY (CLEAR); COLOR,URINE YELLOW (YELLOW); KETONES,URINE NEGATIVE (NEGATIVE); LEUKOCYTE ESTERASE ,URINE NEGATIVE (NEGATIVE); NITRITE,URINE NEGATIVE (NEGATIVE); PROTEIN,URINE DIPSTICK >=300 (NEGATIVE); URINE UROBILINOGEN 0.2 mg/dL (0.2 - 1)
[2021-02-17] MEDS ORDERED: PIPERACILLIN/TAZOBACTAM 2.25 GM in SODIUM CHLORIDE 0.9% 50ML 50 ML IV ONE (15:00)
[2021-02-17 15:05] LABS: BACTERIA,URINE RARE /HPF; WBC,URINE (MAN) 0-5 /HPF (0-5)
[2021-02-17] MEDS ORDERED: ONDANSETRON HCL INJ 2MG/ML 2ML 2 MG/ML VIAL IV PRN (16:15)
[2021-02-17] MEDS ORDERED: DEXTROSE 50% SYRINGE 50 ML IV PRN ×2 (16:15→18:30)
[2021-02-17] MEDS ORDERED: MORPHINE SULFATE INJ 4 MG/ML INJ 1ML IV PRN (16:15)
[2021-02-17] MEDS ORDERED: INSULIN LISPRO 100 UNIT/1 ML 3ML VIAL SQ SCH (16:30)
[2021-02-17] MEDS ORDERED: ACETAMINOPHEN/CODEINE 300MG - 30MG TAB PO PRN (18:30)
[2021-02-17 19:50] VITALS: BP 173/69
[2021-02-17] MEDS: INSULIN LISPRO 100 UNIT/1 ML 3ML VIAL SQ SCH (20:44)
[2021-02-17] MEDS: SODIUM BICARBONATE 650 MG TAB PO SCH (20:53)
[2021-02-17] MEDS: ATORVASTATIN 40 MG TAB PO SCH (20:53)
[2021-02-17] MEDS: PIPERACILLIN/TAZOBACTAM 2.25 GM in SODIUM CHLORIDE 0.9% 50ML 50 ML IV SCH (20:53)
[2021-02-17] MEDS: SEVELAMER CARBONATE 800 MG TAB PO SCH (20:53)
[2021-02-17] MEDS ORDERED: PIPERACILLIN/TAZOBACTAM SOD 2.25 GM VIAL ONE (20:56)
[2021-02-17] MEDS ORDERED: SODIUM CHLORIDE 0.9% 250ML 250 ML ONE (20:57)
[2021-02-17] MEDS ORDERED: SODIUM CHLORIDE 0.9% 50ML 50 ML ONE (20:57)
[2021-02-17 21:05] LABS: CREATINE KINASE MB 1.9 ng/mL (0-5.0)
[2021-02-18] VITALS (8 sets, daily range): BP systolic 135–194; BP diastolic 60–82
[2021-02-18 04:53] LABS: CREATINE KINASE MB 1.6 ng/mL (0-5.0)
[2021-02-18] MEDS: LEVOTHYROXINE SODIUM 25 MCG TABLET PO SCH (05:13)
[2021-02-18 06:54] LABS: BASOPHILS # (AUTO) 0.1 (0.0-0.1); BASOPHILS % 0.6 % (0.0-1.0); EOSINOPHILS # (AUTO) 0.3 (0.0-0.4); EOSINOPHILS % 3.7 % (0.0-6.0); HEMATOCRIT 25.7 % (38.2-49.6); HEMOGLOBIN 8.3 g/dL (14.0-18.0); LYMPHOCYTES # (AUTO) 1.4 (1.0-3.2); LYMPHOCYTES % 16.1 % (18.0-39.1); MEAN CORPUSCULAR HEMOGLOBIN 30.5 pg (28-32); MEAN CORPUSCULAR HGB CONC 32.3 g/dL (31-35); MEAN CORPUSCULAR VOLUME 94.5 fL (81-99); MONOCYTES # (AUTO) 0.7 (0.2-0.8); MONOCYTES % 7.3 % (4.4-11.3); NEUTROPHILS # (AUTO) 6.4 (2.1-6.9); PLATELET COUNT 317 x10e3/uL (140-360); RED BLOOD COUNT 2.72 x10e6/uL (4.3-5.7); RED CELL DISTRIBUTION WIDTH 13.3 % (11.7-14.4)
[2021-02-18 07:26] LABS: ALBUMIN/GLOBULIN RATIO 0.3 (0.8-2.0); ANION GAP 12.9 mmol/L (8-16); CALCIUM 7.5 mg/dL (8.4-10.2); CREATININE, SERUM 6.76 mg/dL (0.72-1.25); POTASSIUM 5.9 mmol/L (3.5-5.1)
[2021-02-18] MEDS: INSULIN LISPRO 100 UNIT/1 ML 3ML VIAL SQ SCH ×4 (07:30→21:25)
[2021-02-18] MEDS: INSULIN GLARGINE 100 UNITS/ML VIAL SQ SCH ×2 (09:00→16:13)
[2021-02-18] MEDS ORDERED: GABAPENTIN 300 MG CAP PO SCH (09:00)
[2021-02-18] MEDS: SEVELAMER CARBONATE 800 MG TAB PO SCH ×3 (09:14→21:04)
[2021-02-18] MEDS: GABAPENTIN 300 MG CAP PO SCH ×2 (09:14→16:13)
[2021-02-18] MEDS: BUMETANIDE 1 MG TAB PO SCH ×2 (09:14→16:13)
[2021-02-18] MEDS: NIFEDIPINE CR 30 MG TAB PO SCH (09:14)
[2021-02-18] MEDS: LISINOPRIL 20 MG TAB PO SCH (09:14)
[2021-02-18] MEDS: PIPERACILLIN/TAZOBACTAM 2.25 GM in SODIUM CHLORIDE 0.9% 50ML 50 ML IV SCH ×2 (09:14→21:08)
[2021-02-18] MEDS: SODIUM BICARBONATE 650 MG TAB PO SCH ×3 (09:14→21:04)
[2021-02-18] MEDS ORDERED: SODIUM CHLORIDE 0.9% 50ML 50 ML ONE ×2 (09:17→19:44)
[2021-02-18] MEDS ORDERED: PIPERACILLIN/TAZOBACTAM SOD 2.25 GM VIAL ONE ×2 (09:17→19:44)
[2021-02-18] MEDS ORDERED: HEPARIN SOD (PORCINE) 1000 UNIT/ML SDV INJ PRN (17:30)
[2021-02-18] MEDS: ATORVASTATIN 40 MG TAB PO SCH (21:04)
[2021-02-18] MEDS: HYDROCODONE/APAP 5MG-325MG TAB PO PRN (21:19)
[2021-02-19] VITALS (7 sets, daily range): BP systolic 132–209; BP diastolic 65–99
[2021-02-19] MEDS: LEVOTHYROXINE SODIUM 25 MCG TABLET PO SCH (05:37)
[2021-02-19 06:06] LABS: BASOPHILS # (AUTO) 0.1 (0.0-0.1); BASOPHILS % 0.5 % (0.0-1.0); EOSINOPHILS # (AUTO) 0.4 (0.0-0.4); EOSINOPHILS % 3.8 % (0.0-6.0); HEMATOCRIT 27.8 % (38.2-49.6); HEMOGLOBIN 8.9 g/dL (14.0-18.0); LYMPHOCYTES # (AUTO) 1.2 (1.0-3.2); LYMPHOCYTES % 12.9 % (18.0-39.1); MEAN CORPUSCULAR HEMOGLOBIN 30.6 pg (28-32); MEAN CORPUSCULAR VOLUME 95.5 fL (81-99); MONOCYTES # (AUTO) 0.6 (0.2-0.8); MONOCYTES % 6.7 % (4.4-11.3); NEUTROPHILS # (AUTO) 7.1 (2.1-6.9); NEUTROPHILS % 75.9 % (38.7-80.0); PLATELET COUNT 309 x10e3/uL (140-360); RED BLOOD COUNT 2.91 x10e6/uL (4.3-5.7); RED CELL DISTRIBUTION WIDTH 13.4 % (11.7-14.4)
[2021-02-19 06:26] LABS: ANION GAP 12.3 mmol/L (8-16); CALCIUM 8.2 mg/dL (8.4-10.2); CREATININE, SERUM 4.67 mg/dL (0.72-1.25); POTASSIUM 5.3 mmol/L (3.5-5.1)
[2021-02-19] MEDS: INSULIN LISPRO 100 UNIT/1 ML 3ML VIAL SQ SCH ×4 (07:30→20:05)
[2021-02-19] MEDS ORDERED: SODIUM CHLORIDE 0.9% 50ML 50 ML ONE ×2 (07:36→19:51)
[2021-02-19] MEDS ORDERED: PIPERACILLIN/TAZOBACTAM SOD 2.25 GM VIAL ONE ×2 (07:36→19:51)
[2021-02-19] MEDS: NIFEDIPINE CR 30 MG TAB PO SCH ×2 (07:59→20:02)
[2021-02-19] MEDS: LISINOPRIL 20 MG TAB PO SCH (07:59)
[2021-02-19] MEDS: BUMETANIDE 1 MG TAB PO SCH ×2 (08:01→17:18)
[2021-02-19] MEDS: SODIUM BICARBONATE 650 MG TAB PO SCH ×3 (08:02→20:02)
[2021-02-19] MEDS: SEVELAMER CARBONATE 800 MG TAB PO SCH ×3 (08:02→20:02)
[2021-02-19] MEDS: GABAPENTIN 300 MG CAP PO SCH ×2 (08:02→17:18)
[2021-02-19] MEDS: HYDROCODONE/APAP 5MG-325MG TAB PO PRN ×3 (08:22→21:37)
[2021-02-19] MEDS: PIPERACILLIN/TAZOBACTAM 2.25 GM in SODIUM CHLORIDE 0.9% 50ML 50 ML IV SCH ×2 (09:00→20:02)
[2021-02-19] MEDS ORDERED: HYDRALAZINE HCL 20 MG/ML VIAL IV STA (12:14)
[2021-02-19] MEDS ORDERED: NIFEDIPINE CR 30 MG TAB PO SCH (15:30)
[2021-02-19] MEDS: HYDRALAZINE HCL 25 MG TAB PO SCH (17:17)
[2021-02-19] MEDS: ATORVASTATIN 40 MG TAB PO SCH (20:02)
[2021-02-20] VITALS (8 sets, daily range): BP systolic 144–191; BP diastolic 55–75
[2021-02-20] MEDS: LEVOTHYROXINE SODIUM 25 MCG TABLET PO SCH (05:43)
[2021-02-20 06:47] LABS: BASOPHILS # (AUTO) 0.1 (0.0-0.1); BASOPHILS % 0.7 % (0.0-1.0); EOSINOPHILS # (AUTO) 0.3 (0.0-0.4); EOSINOPHILS % 2.9 % (0.0-6.0); HEMATOCRIT 29.9 % (38.2-49.6); HEMOGLOBIN 9.5 g/dL (14.0-18.0); LYMPHOCYTES # (AUTO) 1.8 (1.0-3.2); LYMPHOCYTES % 15.5 % (18.0-39.1); MEAN CORPUSCULAR HEMOGLOBIN 30.1 pg (28-32); MEAN CORPUSCULAR HGB CONC 31.8 g/dL (31-35); MEAN CORPUSCULAR VOLUME 94.6 fL (81-99); MONOCYTES # (AUTO) 0.7 (0.2-0.8); NEUTROPHILS # (AUTO) 8.8 (2.1-6.9); NEUTROPHILS % 74.5 % (38.7-80.0); PLATELET COUNT 334 x10e3/uL (140-360); RED BLOOD COUNT 3.16 x10e6/uL (4.3-5.7); RED CELL DISTRIBUTION WIDTH 13.2 % (11.7-14.4)
[2021-02-20 07:14] LABS: ALBUMIN 2.2 g/dL (3.5-5.0); ALBUMIN/GLOBULIN RATIO 0.3 (0.8-2.0); ANION GAP 13.9 mmol/L (8-16); CALCIUM 8.5 mg/dL (8.4-10.2); CREATININE, SERUM 4.59 mg/dL (0.72-1.25); POTASSIUM 4.9 mmol/L (3.5-5.1)
[2021-02-20] MEDS ORDERED: SODIUM CHLORIDE 0.9% 50ML 50 ML ONE ×2 (07:14→20:02)
[2021-02-20] MEDS ORDERED: PIPERACILLIN/TAZOBACTAM SOD 2.25 GM VIAL ONE ×2 (07:14→20:02)
[2021-02-20] MEDS: INSULIN LISPRO 100 UNIT/1 ML 3ML VIAL SQ SCH ×4 (07:30→20:39)
[2021-02-20 07:58] LABS: ERYTHROCYTE SEDIMENTATION RATE 107 mm/hr (0-13)
[2021-02-20] MEDS: PIPERACILLIN/TAZOBACTAM 2.25 GM in SODIUM CHLORIDE 0.9% 50ML 50 ML IV SCH ×2 (08:39→20:39)
[2021-02-20] MEDS: SEVELAMER CARBONATE 800 MG TAB PO SCH ×3 (08:40→20:28)
[2021-02-20] MEDS: LISINOPRIL 20 MG TAB PO SCH (08:40)
[2021-02-20] MEDS: FOLIC ACID/CYANOCOB/PYRIDOXINE TAB PO SCH (08:40)
[2021-02-20] MEDS: GABAPENTIN 300 MG CAP PO SCH ×2 (08:40→16:10)
[2021-02-20] MEDS: SODIUM BICARBONATE 650 MG TAB PO SCH ×3 (08:40→20:28)
[2021-02-20] MEDS: HYDRALAZINE HCL 25 MG TAB PO SCH ×2 (08:40→16:10)
[2021-02-20] MEDS: BUMETANIDE 1 MG TAB PO SCH ×2 (08:40→16:10)
[2021-02-20] MEDS: ZINC SULFATE 220 MG CAP PO SCH ×2 (08:46→16:10)
[2021-02-20] MEDS: ASCORBIC ACID 500 MG TAB PO SCH (08:46)
[2021-02-20] MEDS ORDERED: ZINC SULFATE 220 MG CAP PO SCH (09:00)
[2021-02-20] MEDS ORDERED: ASCORBIC ACID 500 MG TAB PO SCH ×2 (09:00)
[2021-02-20] MEDS: HYDROCODONE/APAP 5MG-325MG TAB PO PRN ×2 (09:00→20:29)
[2021-02-20] MEDS ORDERED: SODIUM CHLORIDE 0.9% 1000ML 2,000 ML ONE (09:41)
[2021-02-20] MEDS ORDERED: HYDRALAZINE HCL 20 MG/ML VIAL IV PRN (20:00)
[2021-02-20] MEDS ORDERED: MELATONIN 5 MG TABLET PO PRN (20:00)
[2021-02-20] MEDS ORDERED: ACETAMINOPHEN 325 MG TAB PO PRN (20:00)
[2021-02-20] MEDS: NIFEDIPINE CR 30 MG TAB PO SCH (20:28)
[2021-02-20] MEDS: ATORVASTATIN 40 MG TAB PO SCH (20:28)
[2021-02-21] VITALS (7 sets, daily range): BP systolic 112–151; BP diastolic 40–75
[2021-02-21] MEDS: HYDROCODONE/APAP 5MG-325MG TAB PO PRN ×4 (00:29→20:45)
[2021-02-21] MEDS: LEVOTHYROXINE SODIUM 25 MCG TABLET PO SCH (05:49)
[2021-02-21] MEDS: INSULIN LISPRO 100 UNIT/1 ML 3ML VIAL SQ SCH ×4 (07:30→21:11)
[2021-02-21] MEDS ORDERED: SODIUM CHLORIDE 0.9% 50ML 50 ML ONE ×2 (07:30→20:18)
[2021-02-21] MEDS ORDERED: PIPERACILLIN/TAZOBACTAM SOD 2.25 GM VIAL ONE ×2 (07:30→20:18)
[2021-02-21] MEDS: PIPERACILLIN/TAZOBACTAM 2.25 GM in SODIUM CHLORIDE 0.9% 50ML 50 ML IV SCH ×2 (07:38→20:40)
[2021-02-21] MEDS: HYDRALAZINE HCL 25 MG TAB PO SCH ×2 (07:39→16:52)
[2021-02-21] MEDS: GABAPENTIN 300 MG CAP PO SCH ×2 (07:39→16:52)
[2021-02-21] MEDS: LISINOPRIL 20 MG TAB PO SCH (07:39)
[2021-02-21] MEDS: BUMETANIDE 1 MG TAB PO SCH ×2 (07:39→16:52)
[2021-02-21] MEDS: FOLIC ACID/CYANOCOB/PYRIDOXINE TAB PO SCH (07:39)
[2021-02-21] MEDS: ZINC SULFATE 220 MG CAP PO SCH ×2 (07:40→16:52)
[2021-02-21] MEDS: SODIUM BICARBONATE 650 MG TAB PO SCH ×3 (07:40→20:46)
[2021-02-21] MEDS: SEVELAMER CARBONATE 800 MG TAB PO SCH ×3 (07:40→20:46)
[2021-02-21] MEDS ORDERED: VANCOMYCIN 1GM/NS 250 ML 250 ML IV SCH (17:00)
[2021-02-21] MEDS: ATORVASTATIN 40 MG TAB PO SCH (20:45)
[2021-02-21] MEDS: NIFEDIPINE CR 30 MG TAB PO SCH (20:46)
[2021-02-22 04:00] VITALS: BP 135/51
[2021-02-22] MEDS: LEVOTHYROXINE SODIUM 25 MCG TABLET PO SCH (05:27)
[2021-02-22 06:06] LABS: BASOPHILS # (AUTO) 0.1 (0.0-0.1); BASOPHILS % 0.6 % (0.0-1.0); EOSINOPHILS # (AUTO) 0.3 (0.0-0.4); EOSINOPHILS % 2.9 % (0.0-6.0); LYMPHOCYTES # (AUTO) 1.9 (1.0-3.2); MEAN CORPUSCULAR HEMOGLOBIN 29.8 pg (28-32); MEAN CORPUSCULAR HGB CONC 32.1 g/dL (31-35); MEAN CORPUSCULAR VOLUME 92.7 fL (81-99); MONOCYTES # (AUTO) 0.8 (0.2-0.8); MONOCYTES % 7.2 % (4.4-11.3); NEUTROPHILS # (AUTO) 7.6 (2.1-6.9); NEUTROPHILS % 70.9 % (38.7-80.0); PLATELET COUNT 261 x10e3/uL (140-360); RED BLOOD COUNT 3.02 x10e6/uL (4.3-5.7); RED CELL DISTRIBUTION WIDTH 13.2 % (11.7-14.4)
[2021-02-22] MEDS: INSULIN LISPRO 100 UNIT/1 ML 3ML VIAL SQ SCH ×4 (07:30→21:00)
[2021-02-22] MEDS ORDERED: SODIUM CHLORIDE 0.9% 1000ML 2,000 ML ONE (09:15)
[2021-02-22] MEDS ORDERED: PIPERACILLIN/TAZOBACTAM SOD 2.25 GM VIAL ONE ×2 (09:20→20:27)
[2021-02-22] MEDS ORDERED: SODIUM CHLORIDE 0.9% 50ML 50 ML ONE ×2 (09:21→20:27)
[2021-02-22] MEDS: PIPERACILLIN/TAZOBACTAM 2.25 GM in SODIUM CHLORIDE 0.9% 50ML 50 ML IV SCH ×2 (10:45→20:30)
[2021-02-22] MEDS: FOLIC ACID/CYANOCOB/PYRIDOXINE TAB PO SCH (10:53)
[2021-02-22] MEDS: ASCORBIC ACID 500 MG TAB PO SCH (10:54)
[2021-02-22] MEDS: SEVELAMER CARBONATE 800 MG TAB PO SCH ×3 (10:54→20:30)
[2021-02-22] MEDS: LISINOPRIL 20 MG TAB PO SCH (10:54)
[2021-02-22] MEDS: SODIUM BICARBONATE 650 MG TAB PO SCH ×3 (10:54→20:30)
[2021-02-22] MEDS: GABAPENTIN 300 MG CAP PO SCH ×2 (10:54→17:03)
[2021-02-22] MEDS: ZINC SULFATE 220 MG CAP PO SCH ×2 (10:55→17:03)
[2021-02-22] MEDS: HYDRALAZINE HCL 25 MG TAB PO SCH ×2 (10:56→17:06)
[2021-02-22] MEDS: BUMETANIDE 1 MG TAB PO SCH ×2 (10:58→17:03)
[2021-02-22] MEDS: COLLAGENASE 5 GM TUBE TOP SCH (11:00)
[2021-02-22] MEDS ORDERED: COLLAGENASE 5 GM TUBE TOP PRN (15:45)
[2021-02-22 20:00] VITALS: BP 179/70
[2021-02-22] MEDS: HYDROCODONE/APAP 5MG-325MG TAB PO PRN (20:30)
[2021-02-22] MEDS: NIFEDIPINE CR 30 MG TAB PO SCH (20:30)
[2021-02-22] MEDS: ATORVASTATIN 40 MG TAB PO SCH (20:30)
[2021-02-22] MEDS ORDERED: SODIUM CHLORIDE 0.9% 250ML 250 ML ONE (20:32)
[2021-02-22 21:00] VITALS: BP 179/70
[2021-02-23] VITALS (9 sets, daily range): BP systolic 116–177; BP diastolic 54–90
[2021-02-23] MEDS: HYDROCODONE/APAP 5MG-325MG TAB PO PRN ×3 (05:04→23:10)
[2021-02-23] MEDS: LEVOTHYROXINE SODIUM 25 MCG TABLET PO SCH (06:10)
[2021-02-23] MEDS: INSULIN LISPRO 100 UNIT/1 ML 3ML VIAL SQ SCH ×4 (07:30→21:00)
[2021-02-23] MEDS ORDERED: PIPERACILLIN/TAZOBACTAM SOD 2.25 GM VIAL ONE ×2 (08:31→21:59)
[2021-02-23] MEDS ORDERED: SODIUM CHLORIDE 0.9% 50ML 50 ML ONE ×2 (08:39→21:59)
[2021-02-23] MEDS: COLLAGENASE 5 GM TUBE TOP SCH (09:00)
[2021-02-23] MEDS: PIPERACILLIN/TAZOBACTAM 2.25 GM in SODIUM CHLORIDE 0.9% 50ML 50 ML IV SCH ×2 (09:02→21:56)
[2021-02-23] MEDS: HYDRALAZINE HCL 25 MG TAB PO SCH ×2 (09:02→15:56)
[2021-02-23] MEDS: SEVELAMER CARBONATE 800 MG TAB PO SCH ×3 (09:03→21:56)
[2021-02-23] MEDS: BUMETANIDE 1 MG TAB PO SCH ×2 (09:03→15:56)
[2021-02-23] MEDS: GABAPENTIN 300 MG CAP PO SCH ×2 (09:03→15:57)
[2021-02-23] MEDS: LISINOPRIL 20 MG TAB PO SCH (09:03)
[2021-02-23] MEDS: SODIUM BICARBONATE 650 MG TAB PO SCH ×3 (09:03→21:56)
[2021-02-23] MEDS: FOLIC ACID/CYANOCOB/PYRIDOXINE TAB PO SCH (09:03)
[2021-02-23] MEDS: ZINC SULFATE 220 MG CAP PO SCH ×2 (09:03→15:57)
[2021-02-23] MEDS ORDERED: VANCOMYCIN 1GM/NS 250 ML 250 ML IV SCH (17:00)
[2021-02-23] MEDS: NIFEDIPINE CR 30 MG TAB PO SCH (21:56)
[2021-02-23] MEDS: ATORVASTATIN 40 MG TAB PO SCH (21:56)
[2021-02-24] VITALS (8 sets, daily range): BP systolic 155–189; BP diastolic 62–76
[2021-02-24] MEDS: HYDROCODONE/APAP 5MG-325MG TAB PO PRN ×2 (03:26→18:45)
[2021-02-24 05:46] LABS: BASOPHILS # (AUTO) 0.1 (0.0-0.1); BASOPHILS % 0.9 % (0.0-1.0); EOSINOPHILS # (AUTO) 0.3 (0.0-0.4); EOSINOPHILS % 3.5 % (0.0-6.0); HEMATOCRIT 25.8 % (38.2-49.6); HEMOGLOBIN 8.5 g/dL (14.0-18.0); LYMPHOCYTES # (AUTO) 1.6 (1.0-3.2); LYMPHOCYTES % 17.8 % (18.0-39.1); MEAN CORPUSCULAR HEMOGLOBIN 30.2 pg (28-32); MEAN CORPUSCULAR HGB CONC 32.9 g/dL (31-35); MEAN CORPUSCULAR VOLUME 91.8 fL (81-99); MONOCYTES # (AUTO) 0.8 (0.2-0.8); MONOCYTES % 8.9 % (4.4-11.3); NEUTROPHILS # (AUTO) 6.1 (2.1-6.9); NEUTROPHILS % 68.5 % (38.7-80.0); PLATELET COUNT 250 x10e3/uL (140-360); RED BLOOD COUNT 2.81 x10e6/uL (4.3-5.7); RED CELL DISTRIBUTION WIDTH 13.5 % (11.7-14.4)
[2021-02-24] MEDS: LEVOTHYROXINE SODIUM 25 MCG TABLET PO SCH (06:18)
[2021-02-24 06:22] LABS: ANION GAP 16.6 mmol/L (8-16); CALCIUM 7.7 mg/dL (8.4-10.2); CREATININE, SERUM 8.08 mg/dL (0.72-1.25); POTASSIUM 4.6 mmol/L (3.5-5.1)
[2021-02-24] MEDS: INSULIN LISPRO 100 UNIT/1 ML 3ML VIAL SQ SCH ×4 (07:30→21:00)
[2021-02-24] MEDS: HYDRALAZINE HCL 25 MG TAB PO SCH ×2 (08:21→17:00)
[2021-02-24] MEDS: BUMETANIDE 1 MG TAB PO SCH ×2 (08:22→17:33)
[2021-02-24] MEDS: GABAPENTIN 300 MG CAP PO SCH ×2 (08:22→17:33)
[2021-02-24] MEDS: FOLIC ACID/CYANOCOB/PYRIDOXINE TAB PO SCH (08:22)
[2021-02-24] MEDS: ZINC SULFATE 220 MG CAP PO SCH ×2 (08:23→17:33)
[2021-02-24] MEDS: SEVELAMER CARBONATE 800 MG TAB PO SCH ×3 (08:23→21:00)
[2021-02-24] MEDS: LISINOPRIL 20 MG TAB PO SCH (08:23)
[2021-02-24] MEDS: ASCORBIC ACID 500 MG TAB PO SCH (08:23)
[2021-02-24] MEDS: SODIUM BICARBONATE 650 MG TAB PO SCH ×2 (08:23→15:00)
[2021-02-24] MEDS: PIPERACILLIN/TAZOBACTAM 2.25 GM in SODIUM CHLORIDE 0.9% 50ML 50 ML IV SCH (08:31)
[2021-02-24] MEDS: COLLAGENASE 5 GM TUBE TOP SCH (09:34)
[2021-02-24] MEDS: NIFEDIPINE CR 30 MG TAB PO SCH (21:00)
[2021-02-24] MEDS: ATORVASTATIN 40 MG TAB PO SCH (21:00)
[2021-02-25] VITALS (9 sets, daily range): BP systolic 116–185; BP diastolic 64–72
[2021-02-25] MEDS: SODIUM BICARBONATE 650 MG TAB PO SCH ×4 (01:33→21:00)
[2021-02-25] MEDS: HYDROCODONE/APAP 5MG-325MG TAB PO PRN ×3 (04:35→15:12)
[2021-02-25] MEDS: LEVOTHYROXINE SODIUM 25 MCG TABLET PO SCH (06:12)
[2021-02-25 06:20] LABS: BASOPHILS # (AUTO) 0.1 (0.0-0.1); BASOPHILS % 1.1 % (0.0-1.0); EOSINOPHILS # (AUTO) 0.4 (0.0-0.4); EOSINOPHILS % 3.6 % (0.0-6.0); HEMATOCRIT 26.2 % (38.2-49.6); HEMOGLOBIN 8.4 g/dL (14.0-18.0); LYMPHOCYTES # (AUTO) 2.1 (1.0-3.2); LYMPHOCYTES % 21.4 % (18.0-39.1); MEAN CORPUSCULAR HEMOGLOBIN 29.6 pg (28-32); MEAN CORPUSCULAR HGB CONC 32.1 g/dL (31-35); MEAN CORPUSCULAR VOLUME 92.3 fL (81-99); MONOCYTES # (AUTO) 0.8 (0.2-0.8); MONOCYTES % 8.6 % (4.4-11.3); NEUTROPHILS # (AUTO) 6.2 (2.1-6.9); NEUTROPHILS % 64.9 % (38.7-80.0); PLATELET COUNT 265 x10e3/uL (140-360); RED BLOOD COUNT 2.84 x10e6/uL (4.3-5.7); RED CELL DISTRIBUTION WIDTH 13.8 % (11.7-14.4)
[2021-02-25 06:38] LABS: ANION GAP 15.6 mmol/L (8-16); CALCIUM 7.9 mg/dL (8.4-10.2); CREATININE, SERUM 9.19 mg/dL (0.72-1.25)
[2021-02-25 06:49] LABS: POTASSIUM 5.6 mmol/L (3.5-5.1)
[2021-02-25 06:54] LABS: INR 1.13; PROTHROMBIN TIME 15.2 seconds (11.9-14.5)
[2021-02-25 06:55] LABS: PARTIAL THROMBOPLASTIN TIME 39.6 seconds (23.8-35.5)
[2021-02-25] MEDS: INSULIN LISPRO 100 UNIT/1 ML 3ML VIAL SQ SCH ×4 (07:30→21:00)
[2021-02-25] MEDS ORDERED: SODIUM CHLORIDE 0.9% 1000ML 1,000 ML ONE ×3 (08:18→17:47)
[2021-02-25] MEDS: ZINC SULFATE 220 MG CAP PO SCH ×2 (09:00→17:00)
[2021-02-25] MEDS: HYDRALAZINE HCL 25 MG TAB PO SCH ×2 (09:00→17:00)
[2021-02-25] MEDS: BUMETANIDE 1 MG TAB PO SCH ×2 (09:00→17:00)
[2021-02-25] MEDS: LISINOPRIL 20 MG TAB PO SCH (09:00)
[2021-02-25] MEDS: SEVELAMER CARBONATE 800 MG TAB PO SCH ×3 (09:00→21:00)
[2021-02-25] MEDS: FOLIC ACID/CYANOCOB/PYRIDOXINE TAB PO SCH (09:00)
[2021-02-25] MEDS: GABAPENTIN 300 MG CAP PO SCH ×2 (10:04→17:00)
[2021-02-25] MEDS: COLLAGENASE 5 GM TUBE TOP SCH (16:03)
[2021-02-25] MEDS ORDERED: MIDAZOLAM HCL 2 MG/2 ML VIAL ONE ×2 (16:42→17:41)
[2021-02-25] MEDS ORDERED: FENTANYL CITRATE/PF 100MCG/2 ML INJ ONE (16:42)
[2021-02-25] MEDS ORDERED: HEPARIN SOD/SOD CHLORIDE 2,000 ML ONE (16:42)
[2021-02-25] MEDS ORDERED: LIDOCAINE HCL 2% LOCAL 20 ML VIAL ONE (16:42)
[2021-02-25] MEDS ORDERED: IOPAMIDOL 300MG/ML 100 ML INFUS..BTL IV ONE (16:43)
[2021-02-25] MEDS ORDERED: SODIUM CHLORIDE 0.9% 250ML 250 ML ONE (16:46)
[2021-02-25] MEDS ORDERED: VANCOMYCIN 1GM/NS 250 ML 250 ML IV SCH ×2 (17:00→21:00)
[2021-02-25] MEDS ORDERED: HYDRALAZINE HCL 20 MG/ML VIAL ONE (17:41)
[2021-02-25] MEDS ORDERED: VERAPAMIL HCL 2.5 MG/ML 2 ML VIAL ONE (17:47)
[2021-02-25] MEDS ORDERED: CLOPIDOGREL BISULFATE 75 MG TAB ONE (18:23)
[2021-02-25] MEDS ORDERED: ASPIRIN 325 MG TAB ONE (18:24)
[2021-02-25] MEDS: ATORVASTATIN 40 MG TAB PO SCH (21:00)
[2021-02-25] MEDS: NIFEDIPINE CR 30 MG TAB PO SCH (21:00)
[2021-02-26 00:20] VITALS: BP 195/68
[2021-02-26 05:55] VITALS: BP 154/64
[2021-02-26] MEDS: LEVOTHYROXINE SODIUM 25 MCG TABLET PO SCH (06:00)
[2021-02-26] MEDS: INSULIN LISPRO 100 UNIT/1 ML 3ML VIAL SQ SCH ×2 (07:30→11:30)
[2021-02-26 08:11] VITALS: BP 144/64
[2021-02-26] MEDS ORDERED: ASPIRIN 81 MG CHEW TAB PO SCH (09:00)
[2021-02-26] MEDS ORDERED: CLOPIDOGREL BISULFATE 75 MG TAB PO SCH (09:00)
[2021-02-26] MEDS: COLLAGENASE 5 GM TUBE TOP SCH (09:05)
[2021-02-26] MEDS: HYDRALAZINE HCL 25 MG TAB PO SCH (09:09)
[2021-02-26] MEDS: BUMETANIDE 1 MG TAB PO SCH (09:10)
[2021-02-26] MEDS: SEVELAMER CARBONATE 800 MG TAB PO SCH (09:10)
[2021-02-26] MEDS: FOLIC ACID/CYANOCOB/PYRIDOXINE TAB PO SCH (09:10)
[2021-02-26] MEDS: ASCORBIC ACID 500 MG TAB PO SCH (09:10)
[2021-02-26] MEDS: ZINC SULFATE 220 MG CAP PO SCH (09:10)
[2021-02-26] MEDS: GABAPENTIN 300 MG CAP PO SCH (09:10)
[2021-02-26] MEDS: SODIUM BICARBONATE 650 MG TAB PO SCH (09:10)
[2021-02-26] MEDS: LISINOPRIL 20 MG TAB PO SCH (09:10)
[2021-02-26 09:47] VITALS: BP 144/64
[2021-02-26 11:39] VITALS: BP 152/68
[2021-02-26] MEDS ORDERED: TYLENOL # 31 EA PO (11:45)
[2021-02-26] MEDS ORDERED: Collagenase TOP (11:49)
[2021-02-26] MEDS ORDERED: PLAVIX75 MG PO (11:49)
[2021-02-26] MEDS ORDERED: ASPIRIN CHEW81 MG PO (11:49)
[2021-02-26] MEDS ORDERED: HYDRALAZINE HCL25 MG PO (11:49)
== END 2021-02-26 15:57 | disposition home health service (06) | DRG 270 ==
LOC: ER 15:32 → ERHOLD 16:38 → MED/SURG3 19:30
PROVIDERS: ADMIT Internal Medicine; ATTEND Internal Medicine
PROC: 5A1D70Z Performance of Urinary Filtration, Intermittent, Less than 6 Hours Per Day (ICD-10-PCS; 2021-02-18)
PROC: 5A1D70Z Performance of Urinary Filtration, Intermittent, Less than 6 Hours Per Day (ICD-10-PCS; 2021-02-19)
PROC: 5A1D70Z Performance of Urinary Filtration, Intermittent, Less than 6 Hours Per Day (ICD-10-PCS; 2021-02-20)
PROC: 0JBQ0ZZ Excision of Right Foot Subcutaneous Tissue and Fascia, Open Approach (ICD-10-PCS; principal; 2021-02-21)
PROC: 0KBV0ZZ Excision of Right Foot Muscle, Open Approach (ICD-10-PCS; 2021-02-23)
PROC: 04CR3ZZ Extirpation of Matter from Right Posterior Tibial Artery, Percutaneous Approach (ICD-10-PCS; 2021-02-25)
PROC: 047R3Z1 Dilation of Right Posterior Tibial Artery using Drug-Coated Balloon, Percutaneous Approach (ICD-10-PCS; 2021-02-25)
PROC: 047M3ZZ Dilation of Right Popliteal Artery, Percutaneous Approach (ICD-10-PCS; 2021-02-25)
PROC: 5A1D70Z Performance of Urinary Filtration, Intermittent, Less than 6 Hours Per Day (ICD-10-PCS; 2021-02-25)
PROC: 0QBL0ZZ Excision of Right Tarsal, Open Approach (ICD-10-PCS; 2021-02-26)
DX: E11.52 Type 2 diabetes mellitus with diabetic peripheral angiopathy with gangrene (principal); N18.6 End stage renal disease; M86.8X7 Other osteomyelitis, ankle and foot; I12.0 Hypertensive chronic kidney disease with stage 5 chronic kidney disease or end stage renal disease; L02.611 Cutaneous abscess of right foot; L03.115 Cellulitis of right lower limb; L97.414 Non-pressure chronic ulcer of right heel and midfoot with necrosis of bone; I70.261 Atherosclerosis of native arteries of extremities with gangrene, right leg; E11.69 Type 2 diabetes mellitus with other specified complication; E11.621 Type 2 diabetes mellitus with foot ulcer; Z79.4 Long term (current) use of insulin; E11.22 Type 2 diabetes mellitus with diabetic chronic kidney disease; Z99.2 Dependence on renal dialysis; E78.5 Hyperlipidemia, unspecified; F17.210 Nicotine dependence, cigarettes, uncomplicated; G89.4 Chronic pain syndrome; E87.5 Hyperkalemia; D63.1 Anemia in chronic kidney disease; E03.9 Hypothyroidism, unspecified; I44.0 Atrioventricular block, first degree; E11.42 Type 2 diabetes mellitus with diabetic polyneuropathy; E11.628 Type 2 diabetes mellitus with other skin complications; B95.2 Enterococcus as the cause of diseases classified elsewhere; Z89.412 Acquired absence of left great toe; E11.51 Type 2 diabetes mellitus with diabetic peripheral angiopathy without gangrene
CPT/HCPCS: 36247; 36415; 37229; 75630; 80048; 80053; 80202; 81001; 82550; 82553; 82948; 83036; 83735; 84484; 85025; 85347; 85610; 85651; 85730; 86140; 86704; 86705; 87040; 87071; 87186; 87205; 87340; 90962; 93926; 99152; 99153; 99284; C1724; C1725; C1760; C1769; C1887; J0360; J1644; J2001; J2250; J2270; J2405; J2543; J3010; J3370; J7030; J7050; Q9967; U0002

== ENCOUNTER 2021-05-26 13:20 | Emergency (ER) | payer MEDICARE, BC ==
[~2021-05-26] VITALS: Ht 172.7 cm; Wt 83.5 kg
[~2021-05-26 13:20] MED LIST changes: +ASPIRIN CHEW81 MG PO; +Collagenase TOP; +PLAVIX75 MG PO
[2021-05-27] MEDS ORDERED: LISINOPRIL20 MG PO (15:15)
[2021-05-31] MEDS ORDERED: NIFEDIPINE ER30 M1 PO (20:28)
[2021-05-31] MEDS ORDERED: LOPRESSOR25 MG PO (20:28)
[2021-05-31] MEDS ORDERED: PREDNISONE20 MG PO (20:28)
[2021-05-31] MEDS ORDERED: HYDRALAZINE HCL25 MG PO (20:28)
[2021-05-31] MEDS ORDERED: MUPIROCIN22 GM TOP (20:28)
[2021-05-31] MEDS ORDERED: KEFLEX125 MG/5 M PO (20:28)
[2021-05-31] MEDS ORDERED: ACETAMINOPHEN325 M1 PO (20:28)
== END 2021-05-26 17:30 | disposition home or self-care (01) ==
LOC: ER 17:02
DX: M25.561 Pain in right knee (principal); M25.461 Effusion, right knee; I12.0 Hypertensive chronic kidney disease with stage 5 chronic kidney disease or end stage renal disease; E11.22 Type 2 diabetes mellitus with diabetic chronic kidney disease; N18.6 End stage renal disease; Z99.2 Dependence on renal dialysis; E78.5 Hyperlipidemia, unspecified
CPT/HCPCS: 99283

== ENCOUNTER 2021-05-27 10:16 | Inpatient (IN) | payer BC, MEDICARE ==
[~2021-05-27] VITALS: Ht 172.7 cm; Wt 85.7 kg
[2021-05-27] VITALS (8 sets, daily range): BP systolic 139–173; BP diastolic 72–79
[2021-05-27 11:00] LABS: BASOPHILS # (AUTO) 0.1 (0.0-0.1); BASOPHILS % 0.4 % (0.0-1.0); EOSINOPHILS # (AUTO) 0.2 (0.0-0.4); EOSINOPHILS % 1.7 % (0.0-6.0); HEMATOCRIT 30.2 % (38.2-49.6); LYMPHOCYTES # (AUTO) 1.2 (1.0-3.2); LYMPHOCYTES % 10.2 % (18.0-39.1); MEAN CORPUSCULAR HEMOGLOBIN 31.1 pg (28-32); MEAN CORPUSCULAR HGB CONC 33.1 g/dL (31-35); MEAN CORPUSCULAR VOLUME 93.8 fL (81-99); MONOCYTES # (AUTO) 1.4 (0.2-0.8); MONOCYTES % 11.8 % (4.4-11.3); NEUTROPHILS # (AUTO) 8.6 (2.1-6.9); NEUTROPHILS % 75.5 % (38.7-80.0); PLATELET COUNT 259 x10e3/uL (140-360); RED BLOOD COUNT 3.22 x10e6/uL (4.3-5.7); RED CELL DISTRIBUTION WIDTH 14.4 % (11.7-14.4)
[2021-05-27 11:22] LABS: ALBUMIN 2.4 g/dL (3.5-5.0); ALBUMIN/GLOBULIN RATIO 0.4 (0.8-2.0); ANION GAP 17.6 mmol/L (8-16); CREATININE, SERUM 10.82 mg/dL (0.72-1.25)
[2021-05-27 11:24] LABS: POTASSIUM 5.6 mmol/L (3.5-5.1)
[2021-05-27 13:15] LABS: CREATINE KINASE MB 3.1 ng/mL (0-5.0)
[2021-05-27] MEDS ORDERED: SODIUM BICARBONATE 8.4% INJ 50 ML SYR IV STA (13:23)
[2021-05-27] MEDS ORDERED: CALCIUM CHLORIDE 10% 1.36 MEQ/ML 10ML SYR IV STA (13:23)
[2021-05-27] MEDS ORDERED: SOD POLYSTYRENE SULFONATE SUSP 15 GM/60 ML BTL PO ONE (13:30)
[2021-05-27] MEDS ORDERED: CALCIUM GLUCONATE 10% INJ 0.465 MEQ/ML VIAL ONE (13:46)
[2021-05-27] MEDS: SODIUM CHLORIDE 0.9% 1000ML 1,000 ML IV SCH ×2 (13:48→22:59)
[2021-05-27] MEDS ORDERED: LISINOPRIL20 MG PO (15:15)
[2021-05-27] MEDS ORDERED: ONDANSETRON HCL INJ 2MG/ML 2ML 2 MG/ML VIAL IV PRN (16:00)
[2021-05-27] MEDS ORDERED: DOCUSATE SODIUM 100 MG CAP PO PRN (16:00)
[2021-05-27] MEDS ORDERED: HYDROMORPHONE 1MG/1ML INJ IV PRN (16:15)
[2021-05-27 16:19] LABS: CHOL/HDL RATIO 2.6 (3.9-4.7)
[2021-05-27] MEDS ORDERED: MORPHINE SULFATE INJ 4 MG/ML INJ 1ML IV PRN (16:30)
[2021-05-27] MEDS: SEVELAMER CARBONATE 800 MG TAB PO SCH (17:34)
[2021-05-27] MEDS: BUMETANIDE 1 MG TAB PO SCH (17:34)
[2021-05-27] MEDS: GABAPENTIN 300 MG CAP PO SCH (17:34)
[2021-05-27] MEDS: PIPERACILLIN/TAZOBACTAM 2.25 GM in SODIUM CHLORIDE 0.9% 50ML 50 ML IV SCH ×2 (17:36→23:15)
[2021-05-27] MEDS: LISINOPRIL 20 MG TAB PO SCH (17:36)
[2021-05-27 18:37] LABS: CREATINE KINASE MB 2.2 ng/mL (0-5.0)
[2021-05-27] MEDS ORDERED: Vancomycin IV 1 GM in SODIUM CHLORIDE 0.9% 250ML 250 ML IV SCH (20:00)
[2021-05-27] MEDS ORDERED: ZOLPIDEM TARTRATE 5 MG TAB PO PRN (21:00)
[2021-05-27] MEDS: ATORVASTATIN 40 MG TAB PO SCH (22:59)
[2021-05-27] MEDS: SODIUM BICARBONATE 650 MG TAB PO SCH (22:59)
[2021-05-27] MEDS: HEPARIN SOD (PORCINE) 5,000 UNIT/ML VIAL SC SCH (23:00)
[2021-05-27] MEDS: ACETAMINOPHEN 325 MG TAB PO PRN (23:30)
[2021-05-28 00:56] VITALS: BP 182/85
[2021-05-28] MEDS: METOPROLOL TARTRATE 25 MG TAB PO SCH ×4 (04:28→22:00)
[2021-05-28 04:56] LABS: BASOPHILS # (AUTO) 0.1 (0.0-0.1); BASOPHILS % 0.5 % (0.0-1.0); EOSINOPHILS # (AUTO) 0.2 (0.0-0.4); EOSINOPHILS % 1.6 % (0.0-6.0); HEMOGLOBIN 10.1 g/dL (14.0-18.0); MEAN CORPUSCULAR HEMOGLOBIN 30.8 pg (28-32); MEAN CORPUSCULAR HGB CONC 32.6 g/dL (31-35); MEAN CORPUSCULAR VOLUME 94.5 fL (81-99); MONOCYTES # (AUTO) 1.1 (0.2-0.8); MONOCYTES % 10.2 % (4.4-11.3); NEUTROPHILS # (AUTO) 8.4 (2.1-6.9); NEUTROPHILS % 78.3 % (38.7-80.0); PLATELET COUNT 225 x10e3/uL (140-360); RED BLOOD COUNT 3.28 x10e6/uL (4.3-5.7); RED CELL DISTRIBUTION WIDTH 14.2 % (11.7-14.4)
[2021-05-28 05:25] LABS: ALBUMIN 2.1 g/dL (3.5-5.0); ALBUMIN/GLOBULIN RATIO 0.4 (0.8-2.0); ANION GAP 20.3 mmol/L (8-16); CALCIUM 7.6 mg/dL (8.4-10.2); CREATININE, SERUM 11.23 mg/dL (0.72-1.25); POTASSIUM 5.3 mmol/L (3.5-5.1)
[2021-05-28 05:34] VITALS: BP 153/69
[2021-05-28] MEDS: PIPERACILLIN/TAZOBACTAM 2.25 GM in SODIUM CHLORIDE 0.9% 50ML 50 ML IV SCH ×3 (05:49→18:10)
[2021-05-28] MEDS: LEVOTHYROXINE SODIUM 25 MCG TABLET PO SCH (05:49)
[2021-05-28 06:28] LABS: CREATINE KINASE MB 1.6 ng/mL (0-5.0)
[2021-05-28 08:00] VITALS: BP 153/69
[2021-05-28 08:32] VITALS: BP 158/84
[2021-05-28] MEDS: SEVELAMER CARBONATE 800 MG TAB PO SCH ×3 (08:50→18:00)
[2021-05-28] MEDS: BUMETANIDE 1 MG TAB PO SCH ×2 (08:50→18:00)
[2021-05-28] MEDS: LISINOPRIL 20 MG TAB PO SCH ×2 (08:50→21:00)
[2021-05-28] MEDS: HEPARIN SOD (PORCINE) 5,000 UNIT/ML VIAL SC SCH ×2 (08:50→21:00)
[2021-05-28] MEDS: GABAPENTIN 300 MG CAP PO SCH ×2 (08:50→18:00)
[2021-05-28] MEDS: SODIUM BICARBONATE 650 MG TAB PO SCH ×3 (08:50→21:00)
[2021-05-28] MEDS: ASPIRIN 81 MG CHEW TAB PO SCH (09:00)
[2021-05-28] MEDS ORDERED: SODIUM CHLORIDE 0.9% 1000ML 2,000 ML ONE (09:40)
[2021-05-28] MEDS ORDERED: SODIUM CHLORIDE 0.9% 1000ML 2,000 ML IV PRN (11:45)
[2021-05-28] MEDS ORDERED: HEPARIN SOD (PORCINE) 1000 UNIT/ML SDV IV PRN (11:45)
[2021-05-28] MEDS ORDERED: SODIUM CHLORIDE 0.9% 250ML 500 ML IV PRN (11:45)
[2021-05-28 11:53] VITALS: BP 151/76
[2021-05-28 12:34] LABS: BODY FLUID TYPE SYNOVIAL
[2021-05-28 12:35] LABS: BODY FLUID APPEARANCE CLOUDY; BODY FLUID COLOR COLORLESS; WBC,BODY FLUID 406 cells/uL
[2021-05-28 12:36] LABS: RBC,BODY FLUID 0 cells/uL
[2021-05-28 13:33] LABS: BODY FLUID APPEARANCE CLOUDY; BODY FLUID COLOR RED; BODY FLUID TYPE SYNOVIAL
[2021-05-28 13:38] LABS: RBC,BODY FLUID 47000 cells/uL; WBC,BODY FLUID 30443 cells/uL
[2021-05-28 13:47] LABS: LYMPHOCYTES,BODY FLUID 2 %; MONO/MACROPHG,BODY FLUID 8 %
[2021-05-28 13:48] LABS: NEUTROPHILS,BODY FLUID 90 %
[2021-05-28 13:56] LABS: LYMPHOCYTES,BODY FLUID 2 %; MONO/MACROPHG,BODY FLUID 2 %; NEUTROPHILS,BODY FLUID 96 %
[2021-05-28] MEDS: NIFEDIPINE CR 30 MG TAB PO SCH (18:00)
[2021-05-28] MEDS: ACETAMINOPHEN 325 MG TAB PO PRN (18:00)
[2021-05-28 20:00] VITALS: BP 179/84
[2021-05-28] MEDS ORDERED: TRAMADOL HCL 50 MG TAB PO PRN (20:15)
[2021-05-28] MEDS: ATORVASTATIN 40 MG TAB PO SCH (21:00)
[2021-05-29] VITALS (8 sets, daily range): BP systolic 136–178; BP diastolic 65–84
[2021-05-29] MEDS: ATORVASTATIN 40 MG TAB PO SCH ×2 (04:17→21:08)
[2021-05-29] MEDS: METOPROLOL TARTRATE 25 MG TAB PO SCH ×4 (04:18→21:09)
[2021-05-29] MEDS: HEPARIN SOD (PORCINE) 5,000 UNIT/ML VIAL SC SCH ×3 (04:18→21:08)
[2021-05-29] MEDS: SODIUM BICARBONATE 650 MG TAB PO SCH ×4 (04:18→21:08)
[2021-05-29] MEDS: LISINOPRIL 20 MG TAB PO SCH ×3 (04:18→21:08)
[2021-05-29] MEDS: PIPERACILLIN/TAZOBACTAM 2.25 GM in SODIUM CHLORIDE 0.9% 50ML 50 ML IV SCH ×5 (04:19→12:15)
[2021-05-29] MEDS: LEVOTHYROXINE SODIUM 25 MCG TABLET PO SCH (05:39)
[2021-05-29] MEDS: BUMETANIDE 1 MG TAB PO SCH ×2 (09:00→17:00)
[2021-05-29] MEDS: SEVELAMER CARBONATE 800 MG TAB PO SCH ×3 (09:20→17:15)
[2021-05-29] MEDS: NIFEDIPINE CR 30 MG TAB PO SCH (09:20)
[2021-05-29] MEDS: ASPIRIN 81 MG CHEW TAB PO SCH (09:20)
[2021-05-29] MEDS: GABAPENTIN 300 MG CAP PO SCH ×2 (09:20→17:15)
[2021-05-29] MEDS: MUPIROCIN 2% OINT 22 GM TUBE TOP SCH (10:00)
[2021-05-30] VITALS (7 sets, daily range): BP systolic 121–186; BP diastolic 67–84
[2021-05-30] MEDS ORDERED: HYDRALAZINE HCL 20 MG/ML VIAL IV PRN (02:00)
[2021-05-30] MEDS: ACETAMINOPHEN 325 MG TAB PO PRN (02:12)
[2021-05-30] MEDS: METOPROLOL TARTRATE 25 MG TAB PO SCH ×3 (05:37→20:37)
[2021-05-30] MEDS: LEVOTHYROXINE SODIUM 25 MCG TABLET PO SCH (05:37)
[2021-05-30] MEDS: MUPIROCIN 2% OINT 22 GM TUBE TOP SCH (06:11)
[2021-05-30] MEDS: SEVELAMER CARBONATE 800 MG TAB PO SCH ×3 (08:00→17:00)
[2021-05-30] MEDS: BUMETANIDE 1 MG TAB PO SCH ×2 (09:00→17:00)
[2021-05-30] MEDS: NIFEDIPINE CR 30 MG TAB PO SCH (09:00)
[2021-05-30] MEDS: SODIUM BICARBONATE 650 MG TAB PO SCH ×3 (09:00→20:37)
[2021-05-30] MEDS: HEPARIN SOD (PORCINE) 5,000 UNIT/ML VIAL SC SCH ×2 (09:00→20:39)
[2021-05-30] MEDS: GABAPENTIN 300 MG CAP PO SCH ×2 (09:00→17:00)
[2021-05-30] MEDS: LISINOPRIL 20 MG TAB PO SCH ×2 (09:00→20:37)
[2021-05-30] MEDS: ASPIRIN 81 MG CHEW TAB PO SCH (09:00)
[2021-05-30] MEDS: CEFTRIAXONE 1 GM in SODIUM CHLORIDE 0.9% 50ML 50 ML IV SCH (09:00)
[2021-05-30] MEDS: METHYLPREDNISOLONE SOD SUCC 40 MG/ML VIAL 1ML IV SCH (20:36)
[2021-05-30] MEDS: ATORVASTATIN 40 MG TAB PO SCH (20:37)
[2021-05-31] VITALS (11 sets, daily range): BP systolic 121–214; BP diastolic 49–95
[2021-05-31] MEDS: LEVOTHYROXINE SODIUM 25 MCG TABLET PO SCH (06:02)
[2021-05-31] MEDS: METOPROLOL TARTRATE 25 MG TAB PO SCH ×3 (06:02→20:57)
[2021-05-31] MEDS: CEFTRIAXONE 1 GM in SODIUM CHLORIDE 0.9% 50ML 50 ML IV SCH (08:08)
[2021-05-31] MEDS: LISINOPRIL 20 MG TAB PO SCH ×2 (08:08→20:56)
[2021-05-31] MEDS: SODIUM BICARBONATE 650 MG TAB PO SCH ×3 (08:08→20:57)
[2021-05-31] MEDS: HEPARIN SOD (PORCINE) 5,000 UNIT/ML VIAL SC SCH ×2 (08:08→20:59)
[2021-05-31] MEDS: SEVELAMER CARBONATE 800 MG TAB PO SCH ×3 (08:08→16:44)
[2021-05-31] MEDS: BUMETANIDE 1 MG TAB PO SCH ×2 (08:08→16:43)
[2021-05-31] MEDS: GABAPENTIN 300 MG CAP PO SCH ×2 (08:08→16:43)
[2021-05-31] MEDS: METHYLPREDNISOLONE SOD SUCC 40 MG/ML VIAL 1ML IV SCH ×2 (08:08→20:56)
[2021-05-31] MEDS: ASPIRIN 81 MG CHEW TAB PO SCH (08:08)
[2021-05-31] MEDS: NIFEDIPINE CR 30 MG TAB PO SCH ×2 (08:14→16:44)
[2021-05-31] MEDS ORDERED: EPOETIN ALFA-EPBX 10,000 UNIT/ML VIAL SC SCH (08:45)
[2021-05-31] MEDS: MUPIROCIN 2% OINT 22 GM TUBE TOP SCH (10:20)
[2021-05-31] MEDS: HYDRALAZINE HCL 10 MG TAB PO SCH ×2 (14:00→20:57)
[2021-05-31] MEDS ORDERED: MUPIROCIN22 GM TOP (20:28)
[2021-05-31] MEDS ORDERED: LOPRESSOR25 MG PO (20:28)
[2021-05-31] MEDS ORDERED: PREDNISONE20 MG PO (20:28)
[2021-05-31] MEDS ORDERED: KEFLEX125 MG/5 M PO (20:28)
[2021-05-31] MEDS ORDERED: HYDRALAZINE HCL25 MG PO (20:28)
[2021-05-31] MEDS ORDERED: ACETAMINOPHEN325 M1 PO (20:28)
[2021-05-31] MEDS ORDERED: NIFEDIPINE ER30 M1 PO (20:28)
[2021-05-31] MEDS: ATORVASTATIN 40 MG TAB PO SCH (20:56)
== END 2021-05-31 21:39 | disposition home health service (06) | DRG 981 ==
LOC: ER 12:26 → ERHOLD 12:37 → MED/SURG2 14:23
PROVIDERS: ADMIT Internal Medicine; ATTEND Internal Medicine
PROC: 0KBV0ZZ Excision of Right Foot Muscle, Open Approach (ICD-10-PCS; principal; 2021-05-28)
PROC: 5A1D70Z Performance of Urinary Filtration, Intermittent, Less than 6 Hours Per Day (ICD-10-PCS; 2021-05-28)
DX: E11.52 Type 2 diabetes mellitus with diabetic peripheral angiopathy with gangrene (principal); N18.6 End stage renal disease; M86.8X7 Other osteomyelitis, ankle and foot; L97.415 Non-pressure chronic ulcer of right heel and midfoot with muscle involvement without evidence of necrosis; I13.11 Hypertensive heart and chronic kidney disease without heart failure, with stage 5 chronic kidney disease, or end stage renal disease; E11.621 Type 2 diabetes mellitus with foot ulcer; E11.69 Type 2 diabetes mellitus with other specified complication; E11.22 Type 2 diabetes mellitus with diabetic chronic kidney disease; Z99.2 Dependence on renal dialysis; E78.5 Hyperlipidemia, unspecified; M17.0 Bilateral primary osteoarthritis of knee; I25.10 Atherosclerotic heart disease of native coronary artery without angina pectoris; B96.89 Other specified bacterial agents as the cause of diseases classified elsewhere; E11.40 Type 2 diabetes mellitus with diabetic neuropathy, unspecified
CPT/HCPCS: 36415; 80053; 80061; 82550; 82553; 82948; 83036; 84484; 84550; 85025; 85651; 86039; 86140; 86200; 86431; 86705; 86706; 87040; 87071; 87075; 87102; 87116; 87186; 87205; 87206; 87340; 89051; 89060; 90962; 93925; 96367; 96372; 96376; 97139; 99251; 99284; J0360; J0610; J0696; J1644; J2270; J2543; J2920; J3370; J7030; J7050

== ENCOUNTER 2021-08-05 19:28 | Inpatient (IN) | payer MEDICARE ==
[~2021-08-05] VITALS: Ht 172.7 cm; Wt 84.8 kg
[~2021-08-05 19:28] MED LIST changes: +ACETAMINOPHEN325 M1 PO; +KEFLEX125 MG/5 M PO; +LOPRESSOR25 MG PO; +NIFEDIPINE ER30 M1 PO; +PREDNISONE20 MG PO
[2021-08-05 20:58] LABS: BASOPHILS % 0.3 % (0.0-1.0); EOSINOPHILS # (AUTO) 0.1 (0.0-0.4); EOSINOPHILS % 0.8 % (0.0-6.0); LYMPHOCYTES # (AUTO) 1.8 (1.0-3.2); LYMPHOCYTES % 19.5 % (18.0-39.1); MEAN CORPUSCULAR HEMOGLOBIN 27.4 pg (28-32); MEAN CORPUSCULAR HGB CONC 28.5 g/dL (31-35); MEAN CORPUSCULAR VOLUME 96.3 fL (81-99); MONOCYTES # (AUTO) 0.5 (0.2-0.8); MONOCYTES % 5.1 % (4.4-11.3); NEUTROPHILS # (AUTO) 6.8 (2.1-6.9); NEUTROPHILS % 73.3 % (38.7-80.0); PLATELET COUNT 282 x10e3/uL (140-360); RED BLOOD COUNT 2.15 x10e6/uL (4.3-5.7); RED CELL DISTRIBUTION WIDTH 19.7 % (11.7-14.4)
[2021-08-05 21:01] LABS: HEMATOCRIT 20.7 % (38.2-49.6); HEMOGLOBIN 5.9 g/dL (14.0-18.0)
[2021-08-05 21:20] LABS: ALBUMIN 1.6 g/dL (3.5-5.0); ALBUMIN/GLOBULIN RATIO 0.3 (0.8-2.0); ANION GAP 15.2 mmol/L (8-16); CALCIUM 7.7 mg/dL (8.4-10.2); CREATININE, SERUM 5.47 mg/dL (0.72-1.25)
[2021-08-05 21:26] LABS: POTASSIUM 6.2 mmol/L (3.5-5.1)
[2021-08-05] MEDS ORDERED: SODIUM BICARBONATE 8.4% INJ 50 ML SYR IV STA (21:28)
[2021-08-05] MEDS ORDERED: DEXTROSE 50% SYRINGE 50 ML IV STA (21:28)
[2021-08-05 21:29] LABS: AMYLASE 23 U/L (25-125); LIPASE 10 U/L (8-78)
[2021-08-05] MEDS ORDERED: CALCIUM GLUCONATE 10% INJ 13.95 MEQ in SODIUM CHLORIDE 0.9% 100 ML 100 ML IV ONE (21:30)
[2021-08-05] MEDS ORDERED: SOD POLYSTYRENE SULFONATE SUSP 15 GM/60 ML BTL PO ONE (21:30)
[2021-08-05] MEDS ORDERED: INSULIN REGULAR, HUMAN 100 UNIT/1 ML IV ONE (21:30)
[2021-08-05] MEDS ORDERED: SODIUM CHLORIDE 0.9% 250ML 250 ML IV ONE ×2 (21:45→22:00)
[2021-08-05] MEDS ORDERED: DEXTROSE 50% SYRINGE 50 ML IV PRN (22:45)
[2021-08-05] MEDS ORDERED: SODIUM CHLORIDE 0.9% 1000ML 1,000 ML IV ONE (22:45)
[2021-08-06] MEDS ORDERED: CALCIUM GLUCONATE 10% INJ 0.465 MEQ/ML VIAL ONE ×2 (00:22→00:29)
[2021-08-06] MEDS ORDERED: SODIUM CHLORIDE 0.9% 100 ML ONE (00:23)
[2021-08-06 01:36] LABS: HEMATOCRIT 17.3 % (38.2-49.6)
[2021-08-06] MEDS ORDERED: SODIUM CHLORIDE 0.9% 250ML 250 ML ONE ×2 (02:29→06:03)
[2021-08-06] MEDS ORDERED: DOCUSATE SODIUM 100 MG CAP PO PRN (05:45)
[2021-08-06] MEDS: LISINOPRIL 20 MG TAB PO SCH ×2 (06:38→17:04)
[2021-08-06] MEDS: HYDRALAZINE HCL 25 MG TAB PO SCH ×3 (06:39→21:11)
[2021-08-06 06:41] LABS: CHOL/HDL RATIO 3.1 (3.9-4.7)
[2021-08-06] MEDS: LEVOTHYROXINE SODIUM 25 MCG TABLET PO SCH (06:52)
[2021-08-06 07:23] LABS: BASOPHILS % 0.3 % (0.0-1.0); EOSINOPHILS # (AUTO) 0.2 (0.0-0.4); EOSINOPHILS % 1.8 % (0.0-6.0); HEMATOCRIT 18.9 % (38.2-49.6); HEMOGLOBIN 5.7 g/dL (14.0-18.0); LYMPHOCYTES # (AUTO) 2.3 (1.0-3.2); LYMPHOCYTES % 26.5 % (18.0-39.1); MEAN CORPUSCULAR HEMOGLOBIN 28.1 pg (28-32); MEAN CORPUSCULAR HGB CONC 30.5 g/dL (31-35); MEAN CORPUSCULAR VOLUME 92.1 fL (81-99); MONOCYTES # (AUTO) 0.5 (0.2-0.8); MONOCYTES % 5.9 % (4.4-11.3); NEUTROPHILS # (AUTO) 5.6 (2.1-6.9); NEUTROPHILS % 64.7 % (38.7-80.0); PLATELET COUNT 250 x10e3/uL (140-360); RED BLOOD COUNT 2.03 x10e6/uL (4.3-5.7); RED CELL DISTRIBUTION WIDTH 19.2 % (11.7-14.4)
[2021-08-06 07:26] LABS: ANION GAP 15.2 mmol/L (8-16); CREATININE, SERUM 5.78 mg/dL (0.72-1.25)
[2021-08-06 07:27] LABS: POTASSIUM 5.2 mmol/L (3.5-5.1)
[2021-08-06] MEDS: INSULIN REGULAR, HUMAN 100 UNIT/1 ML SQ SCH ×4 (07:30→20:20)
[2021-08-06] MEDS ORDERED: SODIUM CHLORIDE 0.9% 250ML 250 ML IV ONE ×2 (08:00→23:45)
[2021-08-06] MEDS ORDERED: SODIUM CHLORIDE 0.9% 1000ML 2,000 ML ONE (08:09)
[2021-08-06 08:18] LABS: ALBUMIN 1.5 g/dL (3.5-5.0); BILIRUBIN,DIRECT 0.2 mg/dL (0.0-0.5)
[2021-08-06] MEDS ORDERED: GABAPENTIN 300 MG CAP PO SCH (09:00)
[2021-08-06 13:00] VITALS: BP_SYST 154; BP_SYST 177; BP_DIAS 72; BP_DIAS 83
[2021-08-06 14:18] LABS: HEMATOCRIT 25.7 % (38.2-49.6); HEMOGLOBIN 7.9 g/dL (14.0-18.0)
[2021-08-06] MEDS: METOPROLOL TARTRATE 25 MG TAB PO SCH ×2 (14:41→21:00)
[2021-08-06] MEDS: GABAPENTIN 300 MG CAP PO SCH ×2 (14:42→17:04)
[2021-08-06] MEDS: SEVELAMER CARBONATE 800 MG TAB PO SCH ×3 (14:42→21:00)
[2021-08-06] MEDS: NIFEDIPINE CR 30 MG TAB PO SCH (14:42)
[2021-08-06] MEDS: SODIUM BICARBONATE 650 MG TAB PO SCH ×3 (14:42→21:00)
[2021-08-06 15:32] VITALS: BP 109/46
[2021-08-06 18:38] LABS: HEMATOCRIT 19.8 % (38.2-49.6); HEMOGLOBIN 6.2 g/dL (14.0-18.0)
[2021-08-06] MEDS ORDERED: ONDANSETRON HCL INJ 2MG/ML 2ML 2 MG/ML VIAL IV PRN (19:00)
[2021-08-06 19:36] LABS: INR 1.53; PROTHROMBIN TIME 18.7 seconds (11.9-14.5)
[2021-08-06 19:37] LABS: PARTIAL THROMBOPLASTIN TIME 39.8 seconds (23.8-35.5)
[2021-08-06 20:57] VITALS: BP 100/55
[2021-08-06] MEDS: Pantoprazole IV 40 MG in SODIUM CHLORIDE 0.9% 50ML 50 ML IV SCH (21:10)
[2021-08-06 21:48] VITALS: BP 100/55
[2021-08-07] VITALS (8 sets, daily range): BP systolic 116–147; BP diastolic 52–71
[2021-08-07] MEDS: Pantoprazole IV 40 MG in SODIUM CHLORIDE 0.9% 50ML 50 ML IV SCH ×5 (00:09→22:57)
[2021-08-07] MEDS: ACETAMINOPHEN 325 MG TAB PO PRN (00:09)
[2021-08-07] MEDS ORDERED: SODIUM CHLORIDE 0.9% 250ML 250 ML ONE ×2 (03:55→12:58)
[2021-08-07] MEDS: LISINOPRIL 20 MG TAB PO SCH ×2 (05:45→17:41)
[2021-08-07] MEDS: HYDRALAZINE HCL 25 MG TAB PO SCH ×3 (06:00→22:58)
[2021-08-07] MEDS: LEVOTHYROXINE SODIUM 25 MCG TABLET PO SCH (06:00)
[2021-08-07] MEDS: INSULIN REGULAR, HUMAN 100 UNIT/1 ML SQ SCH ×4 (07:30→20:18)
[2021-08-07] MEDS: METOPROLOL TARTRATE 25 MG TAB PO SCH (09:00)
[2021-08-07] MEDS: SEVELAMER CARBONATE 800 MG TAB PO SCH ×3 (09:00→22:57)
[2021-08-07] MEDS: GABAPENTIN 300 MG CAP PO SCH ×2 (09:00→17:00)
[2021-08-07] MEDS: SODIUM BICARBONATE 650 MG TAB PO SCH ×3 (09:00→22:57)
[2021-08-07] MEDS: NIFEDIPINE CR 30 MG TAB PO SCH (09:00)
[2021-08-07 10:58] LABS: BASOPHILS % 0.4 % (0.0-1.0); EOSINOPHILS # (AUTO) 0.2 (0.0-0.4); EOSINOPHILS % 1.8 % (0.0-6.0); LYMPHOCYTES # (AUTO) 2.2 (1.0-3.2); LYMPHOCYTES % 20.4 % (18.0-39.1); MEAN CORPUSCULAR HEMOGLOBIN 27.9 pg (28-32); MEAN CORPUSCULAR HGB CONC 30.9 g/dL (31-35); MEAN CORPUSCULAR VOLUME 90.3 fL (81-99); MONOCYTES # (AUTO) 0.6 (0.2-0.8); MONOCYTES % 5.9 % (4.4-11.3); NEUTROPHILS # (AUTO) 7.6 (2.1-6.9); NEUTROPHILS % 70.5 % (38.7-80.0); PLATELET COUNT 194 x10e3/uL (140-360); RED BLOOD COUNT 2.26 x10e6/uL (4.3-5.7); RED CELL DISTRIBUTION WIDTH 18.5 % (11.7-14.4)
[2021-08-07 11:06] LABS: HEMATOCRIT 20.4 % (38.2-49.6); HEMOGLOBIN 6.3 g/dL (14.0-18.0)
[2021-08-07 17:23] LABS: INR 1.34; PROTHROMBIN TIME 16.8 seconds (11.9-14.5)
[2021-08-07 20:08] LABS: HEMATOCRIT 23.1 % (38.2-49.6); HEMOGLOBIN 7.2 g/dL (14.0-18.0)
[2021-08-08] VITALS (7 sets, daily range): BP systolic 123–188; BP diastolic 44–79
[2021-08-08] MEDS: Pantoprazole IV 40 MG in SODIUM CHLORIDE 0.9% 50ML 50 ML IV SCH ×5 (03:52→21:18)
[2021-08-08 05:02] LABS: HEMATOCRIT 23.2 % (38.2-49.6); HEMOGLOBIN 7.4 g/dL (14.0-18.0)
[2021-08-08 05:24] LABS: ALBUMIN 1.8 g/dL (3.5-5.0); ALBUMIN/GLOBULIN RATIO 0.4 (0.8-2.0); ANION GAP 15.3 mmol/L (8-16); CALCIUM 7.7 mg/dL (8.4-10.2); CREATININE, SERUM 5.13 mg/dL (0.72-1.25); POTASSIUM 5.3 mmol/L (3.5-5.1)
[2021-08-08] MEDS: LISINOPRIL 20 MG TAB PO SCH ×2 (05:45→15:49)
[2021-08-08] MEDS: HYDRALAZINE HCL 25 MG TAB PO SCH ×3 (06:00→21:18)
[2021-08-08] MEDS: LEVOTHYROXINE SODIUM 25 MCG TABLET PO SCH (06:00)
[2021-08-08] MEDS: INSULIN REGULAR, HUMAN 100 UNIT/1 ML SQ SCH ×4 (07:30→21:18)
[2021-08-08] MEDS: PROPRANOLOL HCL 10 MG TAB PO SCH ×2 (11:59→15:49)
[2021-08-08] MEDS: GABAPENTIN 300 MG CAP PO SCH ×2 (11:59→16:55)
[2021-08-08] MEDS: SODIUM BICARBONATE 650 MG TAB PO SCH ×3 (12:00→21:18)
[2021-08-08] MEDS: SEVELAMER CARBONATE 800 MG TAB PO SCH ×3 (12:00→21:18)
[2021-08-08] MEDS: NIFEDIPINE CR 30 MG TAB PO SCH (12:00)
[2021-08-08 12:09] LABS: HEMATOCRIT 25.7 % (38.2-49.6)
[2021-08-08] MEDS: ACETAMINOPHEN 325 MG TAB PO PRN (15:15)
[2021-08-08 18:22] LABS: HEMATOCRIT 24.4 % (38.2-49.6); HEMOGLOBIN 7.5 g/dL (14.0-18.0)
[2021-08-08] MEDS ORDERED: PANTOPRAZOLE SO40 MG PO (18:53)
[2021-08-09] VITALS (8 sets, daily range): BP systolic 130–183; BP diastolic 59–74
[2021-08-09] MEDS ORDERED: SUCRALFATE 1 GM TAB PO SCH (01:45)
[2021-08-09] MEDS ORDERED: SODIUM CHLORIDE 0.9% 250ML 250 ML ONE (02:04)
[2021-08-09] MEDS: Pantoprazole IV 40 MG in SODIUM CHLORIDE 0.9% 50ML 50 ML IV SCH ×5 (03:04→22:30)
[2021-08-09] MEDS: LEVOTHYROXINE SODIUM 25 MCG TABLET PO SCH (06:15)
[2021-08-09] MEDS: HYDRALAZINE HCL 25 MG TAB PO SCH ×3 (06:15→22:00)
[2021-08-09] MEDS: LISINOPRIL 20 MG TAB PO SCH ×2 (06:15→17:43)
[2021-08-09] MEDS: INSULIN REGULAR, HUMAN 100 UNIT/1 ML SQ SCH ×4 (07:30→20:54)
[2021-08-09] MEDS: PROPRANOLOL HCL 10 MG TAB PO SCH ×2 (08:28→17:41)
[2021-08-09] MEDS: SUCRALFATE 1 GM TAB PO SCH ×4 (08:28→21:33)
[2021-08-09] MEDS: NIFEDIPINE CR 30 MG TAB PO SCH (08:29)
[2021-08-09] MEDS: SEVELAMER CARBONATE 800 MG TAB PO SCH ×3 (08:29→21:33)
[2021-08-09] MEDS: GABAPENTIN 300 MG CAP PO SCH ×2 (08:29→16:43)
[2021-08-09] MEDS: SODIUM BICARBONATE 650 MG TAB PO SCH ×3 (08:29→21:33)
[2021-08-09] MEDS ORDERED: PHYTONADIONE 10 MG/ML AMP IV ONE ×2 (09:00)
[2021-08-09] MEDS ORDERED: PHYTONADIONE 10MG/ML 20 MG in SODIUM CHLORIDE 0.9% 50ML 50 ML IV ONE (09:00)
[2021-08-09] MEDS: ACETAMINOPHEN 325 MG TAB PO PRN (09:07)
[2021-08-09 10:43] LABS: BASOPHILS % 0.3 % (0.0-1.0); EOSINOPHILS # (AUTO) 0.2 (0.0-0.4); EOSINOPHILS % 1.9 % (0.0-6.0); HEMOGLOBIN 8.1 g/dL (14.0-18.0); LYMPHOCYTES # (AUTO) 1.1 (1.0-3.2); MEAN CORPUSCULAR HEMOGLOBIN 28.9 pg (28-32); MEAN CORPUSCULAR HGB CONC 31.2 g/dL (31-35); MEAN CORPUSCULAR VOLUME 92.9 fL (81-99); MONOCYTES # (AUTO) 0.5 (0.2-0.8); MONOCYTES % 5.1 % (4.4-11.3); NEUTROPHILS # (AUTO) 8.2 (2.1-6.9); NEUTROPHILS % 81.1 % (38.7-80.0); PLATELET COUNT 189 x10e3/uL (140-360); RED CELL DISTRIBUTION WIDTH 20.7 % (11.7-14.4)
[2021-08-09] MEDS ORDERED: PHYTONADIONE IV ONE (11:15)
[2021-08-09] MEDS ORDERED: SODIUM CHLORIDE 0.9% IV ONE (11:15)
[2021-08-09 15:29] LABS: INR 1.1; PROTHROMBIN TIME 14.4 seconds (11.9-14.5)
[2021-08-10] VITALS (7 sets, daily range): BP systolic 121–190; BP diastolic 69–102
[2021-08-10] MEDS: Pantoprazole IV 40 MG in SODIUM CHLORIDE 0.9% 50ML 50 ML IV SCH ×3 (03:30→14:07)
[2021-08-10] MEDS: ACETAMINOPHEN 325 MG TAB PO PRN (04:00)
[2021-08-10] MEDS: LEVOTHYROXINE SODIUM 25 MCG TABLET PO SCH (06:20)
[2021-08-10] MEDS: LISINOPRIL 10 MG TAB PO SCH ×2 (06:21→17:23)
[2021-08-10] MEDS: HYDRALAZINE HCL 25 MG TAB PO SCH ×2 (06:21→14:08)
[2021-08-10] MEDS: INSULIN REGULAR, HUMAN 100 UNIT/1 ML SQ SCH ×3 (07:30→17:42)
[2021-08-10] MEDS: SUCRALFATE 1 GM TAB PO SCH ×3 (08:47→17:23)
[2021-08-10] MEDS: SODIUM BICARBONATE 650 MG TAB PO SCH ×2 (08:48→14:07)
[2021-08-10] MEDS: GABAPENTIN 300 MG CAP PO SCH ×2 (08:48→17:23)
[2021-08-10] MEDS: SEVELAMER CARBONATE 800 MG TAB PO SCH ×2 (08:48→14:07)
[2021-08-10] MEDS: PROPRANOLOL HCL 10 MG TAB PO SCH ×2 (08:49→17:26)
[2021-08-10] MEDS ORDERED: NIFEDIPINE CR 30 MG TAB PO SCH (09:00)
[2021-08-10 12:31] LABS: HEMATOCRIT 28.2 % (38.2-49.6); HEMOGLOBIN 8.7 g/dL (14.0-18.0); MEAN CORPUSCULAR HEMOGLOBIN 29.2 pg (28-32); MEAN CORPUSCULAR HGB CONC 30.9 g/dL (31-35); MEAN CORPUSCULAR VOLUME 94.6 fL (81-99); PLATELET COUNT 209 x10e3/uL (140-360); RED BLOOD COUNT 2.98 x10e6/uL (4.3-5.7); RED CELL DISTRIBUTION WIDTH 20.9 % (11.7-14.4)
[2021-08-10] MEDS ORDERED: LABETALOL HCL 5 MG/ML 20ML VIAL IV NR (16:20)
== END 2021-08-10 18:15 | disposition home or self-care (01) | DRG 368 ==
LOC: ER 19:33 → ERHOLD 22:40 → MED/SURG2 08-06 12:42
PROVIDERS: ADMIT Internal Medicine; ATTEND Internal Medicine
PROC: 5A1D70Z Performance of Urinary Filtration, Intermittent, Less than 6 Hours Per Day (ICD-10-PCS; 2021-08-06)
PROC: 30233N1 Transfusion of Nonautologous Red Blood Cells into Peripheral Vein, Percutaneous Approach (ICD-10-PCS; 2021-08-06)
PROC: 0DB68ZX Excision of Stomach, Via Natural or Artificial Opening Endoscopic, Diagnostic (ICD-10-PCS; 2021-08-07)
PROC: 30233L1 Transfusion of Nonautologous Fresh Plasma into Peripheral Vein, Percutaneous Approach (ICD-10-PCS; 2021-08-07)
PROC: 30233K1 Transfusion of Nonautologous Frozen Plasma into Peripheral Vein, Percutaneous Approach (ICD-10-PCS; 2021-08-07)
PROC: 0DB78ZX Excision of Stomach, Pylorus, Via Natural or Artificial Opening Endoscopic, Diagnostic (ICD-10-PCS; principal; 2021-08-07 16:00)
DX: I85.01 Esophageal varices with bleeding (principal); N18.6 End stage renal disease; I12.0 Hypertensive chronic kidney disease with stage 5 chronic kidney disease or end stage renal disease; L97.418 Non-pressure chronic ulcer of right heel and midfoot with other specified severity; K76.6 Portal hypertension; M86.671 Other chronic osteomyelitis, right ankle and foot; N25.81 Secondary hyperparathyroidism of renal origin; D62 Acute posthemorrhagic anemia; K25.4 Chronic or unspecified gastric ulcer with hemorrhage; M25.562 Pain in left knee; M25.561 Pain in right knee; E87.5 Hyperkalemia; E11.22 Type 2 diabetes mellitus with diabetic chronic kidney disease; Z99.2 Dependence on renal dialysis; E11.621 Type 2 diabetes mellitus with foot ulcer; K80.20 Calculus of gallbladder without cholecystitis without obstruction; R74.01 Elevation of levels of liver transaminase levels; K31.89 Other diseases of stomach and duodenum; Z20.822 Contact with and (suspected) exposure to COVID-19; E11.21 Type 2 diabetes mellitus with diabetic nephropathy; E03.9 Hypothyroidism, unspecified; E11.42 Type 2 diabetes mellitus with diabetic polyneuropathy; G89.4 Chronic pain syndrome; E11.69 Type 2 diabetes mellitus with other specified complication; I25.10 Atherosclerotic heart disease of native coronary artery without angina pectoris; M10.9 Gout, unspecified; Z89.412 Acquired absence of left great toe; E11.319 Type 2 diabetes mellitus with unspecified diabetic retinopathy without macular edema
CPT/HCPCS: 36415; 43239; 71045; 74176; 80048; 80053; 80061; 80076; 82150; 82550; 82553; 82947; 82948; 83036; 83690; 84132; 84484; 85007; 85014; 85018; 85025; 85027; 85610; 85730; 86705; 86706; 86850; 86900; 86920; 87340; 88305; 88312; 90962; 93005; 99284; J0610; J2405; J3430; J7030; J7050; J7799; P9016; P9017; U0002

== ENCOUNTER 2021-10-08 08:43 | Inpatient (IN) | payer MEDICARE ==
[~2021-10-08] VITALS: Ht 172.7 cm; Wt 78.0 kg
[~2021-10-08 08:43] MED LIST changes: +PANTOPRAZOLE SO40 MG PO
[2021-10-08 09:15] LABS: BASOPHILS % 0.2 % (0.0-1.0); EOSINOPHILS # (AUTO) 0.1 (0.0-0.4); EOSINOPHILS % 0.7 % (0.0-6.0); HEMATOCRIT 37.8 % (38.2-49.6); HEMOGLOBIN 11.9 g/dL (14.0-18.0); LYMPHOCYTES # (AUTO) 1.8 (1.0-3.2); LYMPHOCYTES % 19.4 % (18.0-39.1); MEAN CORPUSCULAR HEMOGLOBIN 28.1 pg (28-32); MEAN CORPUSCULAR HGB CONC 31.5 g/dL (31-35); MEAN CORPUSCULAR VOLUME 89.2 fL (81-99); MONOCYTES # (AUTO) 0.6 (0.2-0.8); MONOCYTES % 6.4 % (4.4-11.3); NEUTROPHILS # (AUTO) 6.7 (2.1-6.9); PLATELET COUNT 302 x10e3/uL (140-360); RED BLOOD COUNT 4.24 x10e6/uL (4.3-5.7); RED CELL DISTRIBUTION WIDTH 19.1 % (11.7-14.4)
[2021-10-08] MEDS ORDERED: Vancomycin IV 1 GM in SODIUM CHLORIDE 0.9% 250ML 250 ML IV ONE (09:15)
[2021-10-08] MEDS ORDERED: CEFEPIME 1 GM in SODIUM CHLORIDE 0.9% 50ML 50 ML IV ONE (09:15)
[2021-10-08 09:24] LABS: INR 1.31; PROTHROMBIN TIME 17.3 seconds (11.9-14.5)
[2021-10-08] MEDS ORDERED: ONDANSETRON HCL INJ 2MG/ML 2ML 2 MG/ML VIAL IV PRN (09:30)
[2021-10-08 09:45] LABS: ALBUMIN 2.3 g/dL (3.5-5.0); ALBUMIN/GLOBULIN RATIO 0.3 (0.8-2.0); ANION GAP 17.5 mmol/L (8-16); CALCIUM 8.5 mg/dL (8.4-10.2); CREATININE, SERUM 6.39 mg/dL (0.72-1.25); POTASSIUM 3.5 mmol/L (3.5-5.1)
[2021-10-08] MEDS ORDERED: DEXTROSE 50% SYRINGE 50 ML IV PRN (10:00)
[2021-10-08 10:08] LABS: CREATINE KINASE MB 1.3 ng/mL (0-5.0)
[2021-10-08 10:32] VITALS: BP_SYST 141; BP_SYST 160; BP_DIAS 61; BP_DIAS 70
[2021-10-08] MEDS: INSULIN LISPRO 100 UNIT/1 ML 3ML VIAL SQ SCH ×3 (12:00→21:00)
[2021-10-08 12:49] VITALS: BP 160/70
[2021-10-08] MEDS ORDERED: VANCOCIN HCL250 MG PO (13:19)
[2021-10-08] MEDS ORDERED: LANTUS 3ML100 UNITS/ SC (13:22)
[2021-10-08] MEDS ORDERED: Vitamin D PO (13:27)
[2021-10-08 16:00] VITALS: BP 158/78
[2021-10-08 20:00] VITALS: BP 144/45
[2021-10-09] VITALS (8 sets, daily range): BP systolic 147–180; BP diastolic 73–80
[2021-10-09] MEDS: ACETAMINOPHEN/CODEINE 300MG - 30MG TAB PO PRN ×2 (01:26→21:30)
[2021-10-09 05:41] LABS: BASOPHILS % 0.2 % (0.0-1.0); EOSINOPHILS # (AUTO) 0.1 (0.0-0.4); EOSINOPHILS % 0.8 % (0.0-6.0); HEMATOCRIT 30.4 % (38.2-49.6); HEMOGLOBIN 9.9 g/dL (14.0-18.0); LYMPHOCYTES # (AUTO) 1.7 (1.0-3.2); LYMPHOCYTES % 19.3 % (18.0-39.1); MEAN CORPUSCULAR HEMOGLOBIN 28.2 pg (28-32); MEAN CORPUSCULAR HGB CONC 32.6 g/dL (31-35); MEAN CORPUSCULAR VOLUME 86.6 fL (81-99); MONOCYTES # (AUTO) 0.7 (0.2-0.8); MONOCYTES % 7.7 % (4.4-11.3); NEUTROPHILS # (AUTO) 6.5 (2.1-6.9); NEUTROPHILS % 71.9 % (38.7-80.0); PLATELET COUNT 239 x10e3/uL (140-360); RED BLOOD COUNT 3.51 x10e6/uL (4.3-5.7); RED CELL DISTRIBUTION WIDTH 18.6 % (11.7-14.4)
[2021-10-09] MEDS ORDERED: METRONIDAZOLE 250MG/NS 50ML 50 ML IV SCH (06:00)
[2021-10-09 06:06] LABS: ALBUMIN 1.9 g/dL (3.5-5.0); ALBUMIN/GLOBULIN RATIO 0.3 (0.8-2.0); ANION GAP 16.9 mmol/L (8-16); CALCIUM 7.8 mg/dL (8.4-10.2); CREATININE, SERUM 7.15 mg/dL (0.72-1.25); POTASSIUM 3.9 mmol/L (3.5-5.1)
[2021-10-09 06:33] LABS: CREATINE KINASE MB 1.3 ng/mL (0-5.0)
[2021-10-09] MEDS: INSULIN LISPRO 100 UNIT/1 ML 3ML VIAL SQ SCH ×4 (07:30→21:00)
[2021-10-09 07:52] LABS: CHOL/HDL RATIO 3.7 (3.9-4.7)
[2021-10-09] MEDS: METRONIDAZOLE 500 MG TAB PO SCH ×2 (08:47→15:00)
[2021-10-09] MEDS: BUMETANIDE 1 MG TAB PO SCH ×3 (08:47→17:00)
[2021-10-09] MEDS: METOPROLOL TARTRATE 25 MG TAB PO SCH ×3 (08:50→21:00)
[2021-10-09] MEDS: NIFEDIPINE CR 30 MG TAB PO SCH ×2 (08:51→15:00)
[2021-10-09] MEDS: GABAPENTIN 300 MG CAP PO SCH (08:51)
[2021-10-09] MEDS: SEVELAMER CARBONATE 800 MG TAB PO SCH ×3 (09:00→21:17)
[2021-10-09] MEDS ORDERED: GABAPENTIN 300 MG CAP PO SCH (09:00)
[2021-10-09] MEDS: SODIUM BICARBONATE 650 MG TAB PO SCH ×3 (09:10→21:18)
[2021-10-09] MEDS: LEVOTHYROXINE SODIUM 25 MCG TABLET PO SCH (09:10)
[2021-10-09] MEDS ORDERED: SODIUM CHLORIDE 0.9% 1000ML 2,000 ML ONE (09:12)
[2021-10-09] MEDS: LISINOPRIL 20 MG TAB PO SCH (21:00)
[2021-10-09] MEDS ORDERED: METOPROLOL TARTRATE 25 MG TAB PO ONE (22:15)
[2021-10-10] VITALS (10 sets, daily range): BP systolic 123–146; BP diastolic 67–75
[2021-10-10] MEDS: METRONIDAZOLE 500 MG TAB PO SCH ×4 (01:57→23:00)
[2021-10-10] MEDS: LEVOTHYROXINE SODIUM 25 MCG TABLET PO SCH (06:00)
[2021-10-10] MEDS ORDERED: LIDOCAINE HCL 1% LOCAL INJ 20 ML VIAL ONE (06:32)
[2021-10-10] MEDS ORDERED: BETAMETHASONE DISODIUM PHOS 6 MG/ML VIAL ONE (06:32)
[2021-10-10] MEDS ORDERED: BUPIVACAINE HCL 0.5% INJ 30 ML VIAL INJ ONE (06:32)
[2021-10-10] MEDS ORDERED: MUPIROCIN 2% OINT 22 GM TUBE ONE (06:32)
[2021-10-10] MEDS ORDERED: BACITRACIN ZINC 15 GM OINT ONE (06:34)
[2021-10-10] MEDS: INSULIN LISPRO 100 UNIT/1 ML 3ML VIAL SQ SCH ×4 (07:30→20:29)
[2021-10-10] MEDS ORDERED: METOPROLOL TARTRATE 25 MG TAB PO SCH (09:00)
[2021-10-10] MEDS: ACETAMINOPHEN/CODEINE 300MG - 30MG TAB PO PRN ×2 (09:26→22:00)
[2021-10-10] MEDS: GABAPENTIN 300 MG CAP PO SCH (09:32)
[2021-10-10] MEDS: METOPROLOL TARTRATE 25 MG TAB PO SCH ×2 (09:32→21:55)
[2021-10-10] MEDS: BUMETANIDE 1 MG TAB PO SCH ×2 (09:32→16:18)
[2021-10-10] MEDS: SEVELAMER CARBONATE 800 MG TAB PO SCH ×3 (09:33→21:55)
[2021-10-10] MEDS: SODIUM BICARBONATE 650 MG TAB PO SCH ×3 (09:33→21:55)
[2021-10-10] MEDS: NIFEDIPINE CR 30 MG TAB PO SCH (09:33)
[2021-10-10] MEDS: CIPROFLOXACIN 500 MG TAB PO SCH (11:41)
[2021-10-10] MEDS ORDERED: MIDAZOLAM HCL 2 MG/2 ML VIAL ONE (12:39)
[2021-10-10] MEDS ORDERED: FENTANYL CITRATE/PF 100MCG/2 ML INJ ONE (12:39)
[2021-10-10] MEDS ORDERED: ONDANSETRON HCL INJ 2MG/ML 2ML 2 MG/ML VIAL ONE (15:29)
[2021-10-10] MEDS ORDERED: PROPOFOL IV EMULSION 10 MG/ML 20 ML VIAL ONE (15:29)
[2021-10-10] MEDS ORDERED: SEVOFLURANE INHAL SOLN 250 ML PEN BTL ONE (15:29)
[2021-10-10] MEDS ORDERED: LIDOCAINE HCL 2% LOCAL INJ 5 ML SDV VIAL INJ ONE (15:29)
[2021-10-10] MEDS ORDERED: POVIDONE IODINE 0.05% 0.05 % ML PO ONE (15:29)
[2021-10-10] MEDS: LISINOPRIL 20 MG TAB PO SCH (21:55)
[2021-10-11] VITALS (9 sets, daily range): BP systolic 86–162; BP diastolic 36–85
[2021-10-11] MEDS: Morphine 4mg Syringe 4 MG/ML INJ IV PRN ×5 (01:05→22:00)
[2021-10-11 05:21] LABS: BASOPHILS % 0.2 % (0.0-1.0); EOSINOPHILS # (AUTO) 0.1 (0.0-0.4); HEMATOCRIT 31.2 % (38.2-49.6); LYMPHOCYTES # (AUTO) 1.6 (1.0-3.2); LYMPHOCYTES % 18.5 % (18.0-39.1); MEAN CORPUSCULAR HEMOGLOBIN 28.3 pg (28-32); MEAN CORPUSCULAR HGB CONC 32.1 g/dL (31-35); MEAN CORPUSCULAR VOLUME 88.4 fL (81-99); MONOCYTES # (AUTO) 0.6 (0.2-0.8); NEUTROPHILS # (AUTO) 6.3 (2.1-6.9); PLATELET COUNT 208 x10e3/uL (140-360); RED BLOOD COUNT 3.53 x10e6/uL (4.3-5.7); RED CELL DISTRIBUTION WIDTH 18.4 % (11.7-14.4)
[2021-10-11] MEDS: LEVOTHYROXINE SODIUM 25 MCG TABLET PO SCH (06:00)
[2021-10-11] MEDS: INSULIN LISPRO 100 UNIT/1 ML 3ML VIAL SQ SCH ×4 (07:30→20:54)
[2021-10-11] MEDS: METRONIDAZOLE 500 MG TAB PO SCH ×3 (09:31→23:37)
[2021-10-11] MEDS: BUMETANIDE 1 MG TAB PO SCH ×2 (09:31→17:45)
[2021-10-11] MEDS: METOPROLOL TARTRATE 25 MG TAB PO SCH ×2 (09:32→20:53)
[2021-10-11] MEDS: CIPROFLOXACIN 500 MG TAB PO SCH (09:32)
[2021-10-11] MEDS: SEVELAMER CARBONATE 800 MG TAB PO SCH ×3 (09:33→20:54)
[2021-10-11] MEDS: GABAPENTIN 300 MG CAP PO SCH (09:33)
[2021-10-11] MEDS: NIFEDIPINE CR 30 MG TAB PO SCH (09:33)
[2021-10-11] MEDS: SODIUM BICARBONATE 650 MG TAB PO SCH ×3 (09:33→20:54)
[2021-10-11] MEDS ORDERED: SODIUM CHLORIDE 0.9% 1000ML 1,000 ML ONE (13:46)
[2021-10-11] MEDS: LISINOPRIL 20 MG TAB PO SCH (20:54)
[2021-10-12] MEDS: Morphine 4mg Syringe 4 MG/ML INJ IV PRN ×2 (04:46→09:46)
[2021-10-12 05:39] VITALS: BP 119/33
[2021-10-12] MEDS: LEVOTHYROXINE SODIUM 25 MCG TABLET PO SCH (05:41)
[2021-10-12] MEDS: INSULIN LISPRO 100 UNIT/1 ML 3ML VIAL SQ SCH ×4 (07:30→20:58)
[2021-10-12 07:58] VITALS: BP 124/71
[2021-10-12 08:37] VITALS: BP 158/74
[2021-10-12] MEDS: SEVELAMER CARBONATE 800 MG TAB PO SCH ×3 (09:00→20:57)
[2021-10-12 09:15] LABS: BASOPHILS # (AUTO) 0.1 (0.0-0.1); BASOPHILS % 0.6 % (0.0-1.0); EOSINOPHILS # (AUTO) 0.1 (0.0-0.4); EOSINOPHILS % 0.7 % (0.0-6.0); HEMATOCRIT 34.1 % (38.2-49.6); HEMOGLOBIN 10.8 g/dL (14.0-18.0); LYMPHOCYTES # (AUTO) 1.8 (1.0-3.2); LYMPHOCYTES % 21.6 % (18.0-39.1); MEAN CORPUSCULAR HEMOGLOBIN 28.5 pg (28-32); MEAN CORPUSCULAR HGB CONC 31.7 g/dL (31-35); MONOCYTES # (AUTO) 0.6 (0.2-0.8); MONOCYTES % 7.5 % (4.4-11.3); NEUTROPHILS # (AUTO) 5.7 (2.1-6.9); NEUTROPHILS % 69.2 % (38.7-80.0); PLATELET COUNT 203 x10e3/uL (140-360); RED BLOOD COUNT 3.79 x10e6/uL (4.3-5.7); RED CELL DISTRIBUTION WIDTH 18.6 % (11.7-14.4)
[2021-10-12] MEDS: METRONIDAZOLE 500 MG TAB PO SCH ×3 (09:20→23:39)
[2021-10-12] MEDS: GABAPENTIN 300 MG CAP PO SCH (09:21)
[2021-10-12] MEDS: BUMETANIDE 1 MG TAB PO SCH ×2 (09:21→16:00)
[2021-10-12] MEDS: METOPROLOL TARTRATE 25 MG TAB PO SCH ×2 (09:21→20:57)
[2021-10-12] MEDS: CIPROFLOXACIN 500 MG TAB PO SCH (09:21)
[2021-10-12] MEDS: NIFEDIPINE CR 30 MG TAB PO SCH (09:22)
[2021-10-12] MEDS: SODIUM BICARBONATE 650 MG TAB PO SCH ×3 (09:22→20:57)
[2021-10-12] MEDS: ACETAMINOPHEN/CODEINE 300MG - 30MG TAB PO PRN ×2 (09:23→20:55)
[2021-10-12 09:38] LABS: ANION GAP 15.5 mmol/L (8-16); CALCIUM 7.4 mg/dL (8.4-10.2); CREATININE, SERUM 5.55 mg/dL (0.72-1.25); POTASSIUM 4.5 mmol/L (3.5-5.1)
[2021-10-12] MEDS ORDERED: SODIUM CHLORIDE 0.9% 250ML 250 ML ONE (09:43)
[2021-10-12] MEDS: CEFTRIAXONE 1 GM in SODIUM CHLORIDE 0.9% 50ML 50 ML IV SCH (09:46)
[2021-10-12 11:42] VITALS: BP 150/77
[2021-10-12] MEDS ORDERED: ONDANSETRON HCL 4 MG ORAL DISINTEGRATING TAB PO PRN (16:30)
[2021-10-12 16:47] VITALS: BP 129/56
[2021-10-12 20:00] VITALS: BP 143/70
[2021-10-12] MEDS: LISINOPRIL 20 MG TAB PO SCH (20:57)
[2021-10-13] VITALS: BP 144/76
[2021-10-13 04:00] VITALS: BP 152/81
[2021-10-13] MEDS: LEVOTHYROXINE SODIUM 25 MCG TABLET PO SCH (05:33)
[2021-10-13] MEDS: ACETAMINOPHEN/CODEINE 300MG - 30MG TAB PO PRN (05:34)
[2021-10-13] MEDS: INSULIN LISPRO 100 UNIT/1 ML 3ML VIAL SQ SCH ×2 (07:30→11:30)
[2021-10-13 08:29] VITALS: BP 147/68
[2021-10-13] MEDS: BUMETANIDE 1 MG TAB PO SCH (09:46)
[2021-10-13] MEDS: METRONIDAZOLE 500 MG TAB PO SCH (09:46)
[2021-10-13] MEDS: METOPROLOL TARTRATE 25 MG TAB PO SCH (09:46)
[2021-10-13] MEDS: CEFTRIAXONE 1 GM in SODIUM CHLORIDE 0.9% 50ML 50 ML IV SCH (09:46)
[2021-10-13] MEDS: CIPROFLOXACIN 500 MG TAB PO SCH (09:46)
[2021-10-13] MEDS: GABAPENTIN 300 MG CAP PO SCH (09:46)
[2021-10-13] MEDS: NIFEDIPINE CR 30 MG TAB PO SCH (09:47)
[2021-10-13] MEDS: SEVELAMER CARBONATE 800 MG TAB PO SCH (09:47)
[2021-10-13] MEDS: SODIUM BICARBONATE 650 MG TAB PO SCH (09:47)
[2021-10-13 11:56] VITALS: BP 150/68
[2021-10-13 13:30] VITALS: BP 150/68
== END 2021-10-13 13:10 | disposition home health service (06) | DRG 255 ==
LOC: ER 09:18 → ERHOLD 09:35 → MED/SURG2 10:33
PROVIDERS: ADMIT Internal Medicine; ATTEND Internal Medicine
PROC: 5A1D70Z Performance of Urinary Filtration, Intermittent, Less than 6 Hours Per Day (ICD-10-PCS; principal; 2021-10-09)
PROC: 0Y6V0Z0 Detachment at Right 4th Toe, Complete, Open Approach (ICD-10-PCS; 2021-10-10)
DX: E11.52 Type 2 diabetes mellitus with diabetic peripheral angiopathy with gangrene (principal); N18.6 End stage renal disease; I96 Gangrene, not elsewhere classified; I12.0 Hypertensive chronic kidney disease with stage 5 chronic kidney disease or end stage renal disease; L03.115 Cellulitis of right lower limb; E87.2 Acidosis; E11.22 Type 2 diabetes mellitus with diabetic chronic kidney disease; Z99.2 Dependence on renal dialysis; F17.210 Nicotine dependence, cigarettes, uncomplicated; Z20.822 Contact with and (suspected) exposure to COVID-19; E11.51 Type 2 diabetes mellitus with diabetic peripheral angiopathy without gangrene; D64.9 Anemia, unspecified; E11.21 Type 2 diabetes mellitus with diabetic nephropathy; E11.42 Type 2 diabetes mellitus with diabetic polyneuropathy; D63.1 Anemia in chronic kidney disease; E11.319 Type 2 diabetes mellitus with unspecified diabetic retinopathy without macular edema; Z79.4 Long term (current) use of insulin
CPT/HCPCS: 36415; 71046; 80048; 80053; 80061; 82550; 82553; 82948; 83036; 84132; 84484; 85025; 85610; 85730; 86704; 86706; 87040; 87340; 88304; 88305; 88311; 93005; 94799; 96372; 99284; J0692; J0696; J0720; J2001; J2250; J2270; J2405; J3010; J3370; J7030; J7050; U0002

== ENCOUNTER 2021-11-20 09:26 | Emergency (ER) | payer MEDICARE ==
[~2021-11-20] VITALS: Ht 325.1 cm; Wt 78.0 kg
[~2021-11-20 09:26] MED LIST changes: +LANTUS 3ML100 UNITS/ SC; +VANCOCIN HCL250 MG PO; +Vitamin D PO
[2021-11-20 10:05] LABS: BASOPHILS # (AUTO) 0.1 (0.0-0.1); BASOPHILS % 0.7 % (0.0-1.0); EOSINOPHILS # (AUTO) 0.2 (0.0-0.4); EOSINOPHILS % 2.2 % (0.0-6.0); HEMATOCRIT 34.2 % (38.2-49.6); HEMOGLOBIN 11.2 g/dL (14.0-18.0); LYMPHOCYTES # (AUTO) 1.9 (1.0-3.2); LYMPHOCYTES % 21.9 % (18.0-39.1); MEAN CORPUSCULAR HEMOGLOBIN 29.2 pg (28-32); MEAN CORPUSCULAR HGB CONC 32.7 g/dL (31-35); MEAN CORPUSCULAR VOLUME 89.3 fL (81-99); MONOCYTES # (AUTO) 0.7 (0.2-0.8); MONOCYTES % 7.8 % (4.4-11.3); NEUTROPHILS # (AUTO) 5.7 (2.1-6.9); NEUTROPHILS % 66.1 % (38.7-80.0); PLATELET COUNT 277 x10e3/uL (140-360); RED BLOOD COUNT 3.83 x10e6/uL (4.3-5.7); RED CELL DISTRIBUTION WIDTH 16.3 % (11.7-14.4)
[2021-11-20 10:23] LABS: ALBUMIN 2.1 g/dL (3.5-5.0); ALBUMIN/GLOBULIN RATIO 0.3 (0.8-2.0); ANION GAP 11.8 mmol/L (8-16); CALCIUM 8.2 mg/dL (8.4-10.2); CREATININE, SERUM 10.71 mg/dL (0.72-1.25); POTASSIUM 4.8 mmol/L (3.5-5.1)
== END 2021-11-20 12:34 | disposition home or self-care (01) ==
LOC: ER 09:35
DX: I12.0 Hypertensive chronic kidney disease with stage 5 chronic kidney disease or end stage renal disease (principal); E11.22 Type 2 diabetes mellitus with diabetic chronic kidney disease; N18.6 End stage renal disease; Z99.2 Dependence on renal dialysis; K76.9 Liver disease, unspecified; Z20.822 Contact with and (suspected) exposure to COVID-19; R94.31 Abnormal electrocardiogram [ECG] [EKG]
CPT/HCPCS: 36415; 71045; 80053; 85025; 93005; 99284; U0002

== ENCOUNTER 2022-03-07 02:24 | Inpatient (IN) | payer MEDICARE ==
[2022-03-07] VITALS (8 sets, daily range): BP systolic 176–189; BP diastolic 66–89
[~2022-03-07] VITALS: Ht 172.7 cm; Wt 81.6 kg
[2022-03-07] MEDS ORDERED: IBUPROFEN 400 MG TAB PO ONE (02:45)
[2022-03-07 03:15] LABS: BASOPHILS % 0.2 % (0.0-1.0); EOSINOPHILS # (AUTO) 0.1 (0.0-0.4); EOSINOPHILS % 1.1 % (0.0-6.0); HEMATOCRIT 36.1 % (38.2-49.6); HEMOGLOBIN 11.9 g/dL (14.0-18.0); LYMPHOCYTES # (AUTO) 1.3 (1.0-3.2); LYMPHOCYTES % 9.6 % (18.0-39.1); MEAN CORPUSCULAR HEMOGLOBIN 31.2 pg (28-32); MEAN CORPUSCULAR VOLUME 94.5 fL (81-99); MONOCYTES # (AUTO) 0.4 (0.2-0.8); NEUTROPHILS # (AUTO) 11.3 (2.1-6.9); NEUTROPHILS % 85.7 % (38.7-80.0); PLATELET COUNT 236 x10e3/uL (140-360); RED BLOOD COUNT 3.82 x10e6/uL (4.3-5.7); RED CELL DISTRIBUTION WIDTH 17.2 % (11.7-14.4)
[2022-03-07 03:27] LABS: ALBUMIN 2.1 g/dL (3.5-5.0); ALBUMIN/GLOBULIN RATIO 0.3 (0.8-2.0); CALCIUM 7.9 mg/dL (8.4-10.2); CREATININE, SERUM 7.04 mg/dL (0.72-1.25)
[2022-03-07 03:36] LABS: CREATINE KINASE MB 1.4 ng/mL (0-5.0)
[2022-03-07] MEDS ORDERED: IBUPROFEN 200 MG TAB PO PRN (04:00)
[2022-03-07] MEDS ORDERED: ONDANSETRON HCL INJ 2MG/ML 2ML 2 MG/ML VIAL IV PRN (04:00)
[2022-03-07] MEDS ORDERED: SODIUM CHLORIDE FLUSH 10 ML SYR INJ PRN (04:00)
[2022-03-07] MEDS ORDERED: DEXTROSE 50% SYRINGE 50 ML IV PRN (04:00)
[2022-03-07] MEDS ORDERED: Vancomycin IV 1 GM in SODIUM CHLORIDE 0.9% 250ML 250 ML IV ONE (04:00)
[2022-03-07] MEDS: ALBUTEROL/IPRATROPIUM 3 ML NEB NEB SCH ×3 (07:20→20:25)
[2022-03-07] MEDS: INSULIN REGULAR, HUMAN 100 UNIT/1 ML SQ SCH ×4 (07:30→21:00)
[2022-03-07] MEDS: HYDRALAZINE HCL 20 MG/ML VIAL IV PRN ×2 (07:41→16:55)
[2022-03-07 11:12] LABS: CHOL/HDL RATIO 2.7 (3.9-4.7)
[2022-03-07] MEDS: SEVELAMER CARBONATE 800 MG TAB PO SCH ×2 (14:15→17:02)
[2022-03-07] MEDS ORDERED: SODIUM BICARBONATE 650 MG TAB PO SCH (15:00)
[2022-03-07] MEDS ORDERED: SEVELAMER CARBONATE 800 MG TAB PO SCH (17:00)
[2022-03-07] MEDS: BUMETANIDE 1 MG TAB PO SCH (17:01)
[2022-03-07] MEDS ORDERED: SODIUM CHLORIDE 0.9% 250ML 250 ML ONE (17:02)
[2022-03-07] MEDS: GABAPENTIN 300 MG CAP PO SCH (17:02)
[2022-03-07] MEDS ORDERED: HYDRALAZINE HCL25 MG PO (19:31)
[2022-03-07] MEDS ORDERED: VITAMIN D3125 MCG PO (19:31)
[2022-03-07] MEDS ORDERED: ATORVASTATIN 20 MG TAB PO SCH (21:00)
[2022-03-07] MEDS ORDERED: LISINOPRIL 20 MG TAB PO SCH (21:00)
[2022-03-07] MEDS: METOPROLOL TARTRATE 25 MG TAB PO SCH (21:02)
[2022-03-07] MEDS: SODIUM BICARBONATE 650 MG TAB PO SCH (21:03)
[2022-03-08 00:15] VITALS: BP 174/65
[2022-03-08] MEDS: ALBUTEROL/IPRATROPIUM 3 ML NEB NEB SCH ×3 (02:30→13:00)
[2022-03-08 04:58] VITALS: BP 177/65
[2022-03-08 05:27] LABS: BASOPHILS % 0.3 % (0.0-1.0); EOSINOPHILS # (AUTO) 0.1 (0.0-0.4); EOSINOPHILS % 0.9 % (0.0-6.0); HEMATOCRIT 29.3 % (38.2-49.6); HEMOGLOBIN 9.6 g/dL (14.0-18.0); LYMPHOCYTES # (AUTO) 0.9 (1.0-3.2); LYMPHOCYTES % 10.3 % (18.0-39.1); MEAN CORPUSCULAR HEMOGLOBIN 31.2 pg (28-32); MEAN CORPUSCULAR HGB CONC 32.8 g/dL (31-35); MEAN CORPUSCULAR VOLUME 95.1 fL (81-99); MONOCYTES # (AUTO) 0.6 (0.2-0.8); MONOCYTES % 6.9 % (4.4-11.3); NEUTROPHILS # (AUTO) 7.3 (2.1-6.9); NEUTROPHILS % 81.4 % (38.7-80.0); PLATELET COUNT 180 x10e3/uL (140-360); RED BLOOD COUNT 3.08 x10e6/uL (4.3-5.7); RED CELL DISTRIBUTION WIDTH 17.3 % (11.7-14.4)
[2022-03-08 05:52] LABS: ALBUMIN 1.6 g/dL (3.5-5.0); ALBUMIN/GLOBULIN RATIO 0.3 (0.8-2.0); CALCIUM 7.2 mg/dL (8.4-10.2); CREATININE, SERUM 5.76 mg/dL (0.72-1.25)
[2022-03-08] MEDS ORDERED: LEVOTHYROXINE SODIUM 25 MCG TABLET PO SCH (06:00)
[2022-03-08] MEDS: INSULIN REGULAR, HUMAN 100 UNIT/1 ML SQ SCH ×2 (07:30→11:30)
[2022-03-08 07:51] VITALS: BP 190/76
[2022-03-08 07:52] VITALS: BP 190/76
[2022-03-08] MEDS: SEVELAMER CARBONATE 800 MG TAB PO SCH ×2 (08:29→12:28)
[2022-03-08] MEDS: GABAPENTIN 300 MG CAP PO SCH (08:29)
[2022-03-08] MEDS: SODIUM BICARBONATE 650 MG TAB PO SCH ×2 (08:29→14:32)
[2022-03-08] MEDS: METOPROLOL TARTRATE 25 MG TAB PO SCH (08:29)
[2022-03-08] MEDS: BUMETANIDE 1 MG TAB PO SCH (08:29)
[2022-03-08] MEDS ORDERED: NIFEDIPINE CR 30 MG TAB PO SCH (09:00)
[2022-03-08 13:39] VITALS: BP 116/70
[2022-03-08] MEDS ORDERED: HYDRALAZINE HCL 25 MG TAB PO SCH (19:30)
== END 2022-03-08 18:15 | disposition home or self-care (01) | DRG 291 ==
LOC: ER 02:35 → ERHOLD 04:12 → MED/SURG 09:20
PROVIDERS: ADMIT Internal Medicine; ATTEND Internal Medicine
PROC: 5A1D70Z Performance of Urinary Filtration, Intermittent, Less than 6 Hours Per Day (ICD-10-PCS; principal; 2022-03-07)
DX: I13.2 Hypertensive heart and chronic kidney disease with heart failure and with stage 5 chronic kidney disease, or end stage renal disease (principal); I50.33 Acute on chronic diastolic (congestive) heart failure; N18.6 End stage renal disease; R18.8 Other ascites; E11.22 Type 2 diabetes mellitus with diabetic chronic kidney disease; Z99.2 Dependence on renal dialysis; Z79.899 Other long term (current) drug therapy; E11.621 Type 2 diabetes mellitus with foot ulcer; L97.519 Non-pressure chronic ulcer of other part of right foot with unspecified severity; E11.51 Type 2 diabetes mellitus with diabetic peripheral angiopathy without gangrene; M06.9 Rheumatoid arthritis, unspecified; K74.60 Unspecified cirrhosis of liver; Z79.4 Long term (current) use of insulin
CPT/HCPCS: 36415; 71045; 80053; 80061; 82550; 82553; 82948; 83036; 83605; 83880; 84484; 85025; 86705; 86706; 87040; 87071; 87186; 87205; 87340; 93005; 93306; 93925; 94799; 99284; J0360; J1817; J2543; J3370; J7050; U0002

== ENCOUNTER 2022-03-26 16:15 | Inpatient (IN) | payer MEDICARE ==
[~2022-03-26] VITALS: Ht 172.7 cm; Wt 84.4 kg
[~2022-03-26 16:15] MED LIST changes: +VITAMIN D3125 MCG PO
[2022-03-26] MEDS ORDERED: ACETAMINOPHEN 325 MG TAB PO ONE ×2 (17:30)
[2022-03-26 17:39] LABS: BASOPHILS % 0.2 % (0.0-1.0); EOSINOPHILS % 0.1 % (0.0-6.0); HEMATOCRIT 33.9 % (38.2-49.6); HEMOGLOBIN 10.8 g/dL (14.0-18.0); LYMPHOCYTES # (AUTO) 0.4 (1.0-3.2); LYMPHOCYTES % 3.8 % (18.0-39.1); MEAN CORPUSCULAR HEMOGLOBIN 30.4 pg (28-32); MEAN CORPUSCULAR HGB CONC 31.9 g/dL (31-35); MEAN CORPUSCULAR VOLUME 95.5 fL (81-99); MONOCYTES # (AUTO) 0.1 (0.2-0.8); MONOCYTES % 0.6 % (4.4-11.3); NEUTROPHILS % 94.4 % (38.7-80.0); PLATELET COUNT 315 x10e3/uL (140-360); RED BLOOD COUNT 3.55 x10e6/uL (4.3-5.7); RED CELL DISTRIBUTION WIDTH 15.7 % (11.7-14.4)
[2022-03-26 17:50] LABS: ALBUMIN 1.7 g/dL (3.5-5.0); ALBUMIN/GLOBULIN RATIO 0.2 (0.8-2.0); ANION GAP 19.2 mmol/L (8-16); CALCIUM 7.5 mg/dL (8.4-10.2); CREATININE, SERUM 6.03 mg/dL (0.72-1.25); POTASSIUM 4.2 mmol/L (3.5-5.1)
[2022-03-26 17:56] LABS: CREATINE KINASE MB 0.4 ng/mL (0-5.0)
[2022-03-26] MEDS ORDERED: IOPAMIDOL 370 MG/ML 100 ML INFUS..BTL INJ ONE (18:30)
[2022-03-26] MEDS ORDERED: Vancomycin IV 1 GM in SODIUM CHLORIDE 0.9% 250ML 250 ML IV ONE (18:30)
[2022-03-26] MEDS ORDERED: SODIUM CHLORIDE FLUSH 10 ML SYR INJ PRN (20:30)
[2022-03-26] MEDS ORDERED: Morphine 2mg Syringe 2 MG/ML SYR IV PRN (20:30)
[2022-03-26] MEDS ORDERED: DEXTROSE 50% SYRINGE 50 ML IV PRN (20:30)
[2022-03-26] MEDS ORDERED: ONDANSETRON HCL INJ 2MG/ML 2ML 2 MG/ML VIAL IV PRN (20:30)
[2022-03-26] MEDS ORDERED: ACETAMINOPHEN 325 MG TAB PO PRN (20:30)
[2022-03-26] MEDS: INSULIN REGULAR, HUMAN 100 UNIT/1 ML SQ SCH (21:00)
[2022-03-27 05:35] LABS: BASOPHILS # (AUTO) 0.1 (0.0-0.1); BASOPHILS % 0.2 % (0.0-1.0); EOSINOPHILS % 0.1 % (0.0-6.0); HEMATOCRIT 28.9 % (38.2-49.6); HEMOGLOBIN 9.4 g/dL (14.0-18.0); LYMPHOCYTES # (AUTO) 1.1 (1.0-3.2); LYMPHOCYTES % 4.2 % (18.0-39.1); MEAN CORPUSCULAR HEMOGLOBIN 30.8 pg (28-32); MEAN CORPUSCULAR HGB CONC 32.5 g/dL (31-35); MEAN CORPUSCULAR VOLUME 94.8 fL (81-99); MONOCYTES # (AUTO) 0.6 (0.2-0.8); MONOCYTES % 2.5 % (4.4-11.3); NEUTROPHILS # (AUTO) 23.8 (2.1-6.9); NEUTROPHILS % 92.1 % (38.7-80.0); PLATELET COUNT 254 x10e3/uL (140-360); RED BLOOD COUNT 3.05 x10e6/uL (4.3-5.7); RED CELL DISTRIBUTION WIDTH 15.9 % (11.7-14.4)
[2022-03-27 06:05] LABS: BASOPHILS # (AUTO) 0.1 (0.0-0.1); BASOPHILS % 0.2 % (0.0-1.0); EOSINOPHILS % 0.2 % (0.0-6.0); HEMATOCRIT 29.9 % (38.2-49.6); HEMOGLOBIN 9.6 g/dL (14.0-18.0); LYMPHOCYTES % 4.2 % (18.0-39.1); MEAN CORPUSCULAR HEMOGLOBIN 30.4 pg (28-32); MEAN CORPUSCULAR HGB CONC 32.1 g/dL (31-35); MEAN CORPUSCULAR VOLUME 94.6 fL (81-99); MONOCYTES # (AUTO) 0.7 (0.2-0.8); MONOCYTES % 2.7 % (4.4-11.3); NEUTROPHILS # (AUTO) 22.1 (2.1-6.9); NEUTROPHILS % 91.9 % (38.7-80.0); PLATELET COUNT 260 x10e3/uL (140-360); RED BLOOD COUNT 3.16 x10e6/uL (4.3-5.7); RED CELL DISTRIBUTION WIDTH 15.6 % (11.7-14.4)
[2022-03-27 06:30] LABS: ALBUMIN 1.4 g/dL (3.5-5.0); ALBUMIN/GLOBULIN RATIO 0.2 (0.8-2.0); ANION GAP 14.2 mmol/L (8-16); CALCIUM 7.1 mg/dL (8.4-10.2); CREATININE, SERUM 6.36 mg/dL (0.72-1.25); POTASSIUM 4.2 mmol/L (3.5-5.1)
[2022-03-27] MEDS: INSULIN REGULAR, HUMAN 100 UNIT/1 ML SQ SCH ×4 (07:30→20:27)
[2022-03-27 08:23] LABS: BAND NEUTROPHILS % (MANUAL) 3 %; LYMPHOCYTES % (MANUAL) 7 % (19-48); MONOCYTES % (MANUAL) 3 % (3.4-9.0); NEUTROPHILS % (MANUAL) 86 % (40-74); PLATELET ESTIMATE ADEQUATE; PLATELET MORPHOLOGY COMMENT NORMAL; RBC MORPHOLOGY COMMENT NORMAL
[2022-03-27] MEDS ORDERED: FENTANYL CITRATE/PF 100MCG/2 ML INJ ONE ×2 (10:15→12:57)
[2022-03-27] MEDS ORDERED: Morphine 2mg Syringe 2 MG/ML SYR ONE (10:56)
[2022-03-27 11:36] VITALS: BP 124/60
[2022-03-27] MEDS ORDERED: FLUMAZENIL 0.5MG/ 5ML VIAL ONE (12:10)
[2022-03-27] MEDS ORDERED: POVIDONE IODINE 0.05% 0.05 % ML PO ONE (12:10)
[2022-03-27] MEDS ORDERED: NALOXONE HCL INJ 0.4 MG/ML AMP ONE (12:10)
[2022-03-27] MEDS ORDERED: PROPOFOL IV EMULSION 10 MG/ML 20 ML VIAL ONE (12:10)
[2022-03-27] MEDS ORDERED: SEVOFLURANE INHAL SOLN 250 ML PEN BTL ONE (12:10)
[2022-03-27] MEDS ORDERED: LIDOCAINE HCL 2% LOCAL INJ 5 ML SDV VIAL INJ ONE (12:10)
[2022-03-27] MEDS ORDERED: ATROPINE SULFATE 1 MG/ML VIAL ONE (12:10)
[2022-03-27] MEDS ORDERED: GLYCOPYRROLATE INJ 0.2 MG/ML VIAL ONE (12:10)
[2022-03-27] MEDS: HYDRALAZINE HCL 25 MG TAB PO SCH ×2 (12:17→21:52)
[2022-03-27] MEDS: SEVELAMER CARBONATE 800 MG TAB PO SCH ×2 (12:39→17:00)
[2022-03-27] MEDS ORDERED: ASPIRIN81 MG PO (12:46)
[2022-03-27] MEDS ORDERED: MIDAZOLAM HCL 2 MG/2 ML VIAL ONE (12:57)
[2022-03-27 13:06] VITALS: BP 124/60
[2022-03-27] MEDS ORDERED: PNEUMOCOCCAL VACCINE POLYVALENT 23 MCG/0.5 ML VIAL IM ONE (14:00)
[2022-03-27] MEDS ORDERED: SODIUM CHLORIDE 0.9% 1000ML 1,000 ML ONE (14:25)
[2022-03-27] MEDS: SODIUM BICARBONATE 650 MG TAB PO SCH ×2 (15:00→20:37)
[2022-03-27] MEDS: GABAPENTIN 300 MG CAP PO SCH (17:00)
[2022-03-27] MEDS ORDERED: BUMETANIDE 1 MG TAB PO SCH (17:00)
[2022-03-27 17:30] VITALS: BP 133/90
[2022-03-27 20:00] VITALS: BP 160/83
[2022-03-27] MEDS: ATORVASTATIN 40 MG TAB PO SCH (20:36)
[2022-03-27] MEDS: METOPROLOL TARTRATE 25 MG TAB PO SCH (20:36)
[2022-03-27 20:43] VITALS: BP 166/84
[2022-03-28] VITALS (7 sets, daily range): BP systolic 146–165; BP diastolic 65–74
[2022-03-28] MEDS: HYDRALAZINE HCL 25 MG TAB PO SCH ×3 (05:56→22:37)
[2022-03-28] MEDS: LEVOTHYROXINE SODIUM 25 MCG TABLET PO SCH (05:56)
[2022-03-28 06:10] LABS: BASOPHILS % 0.3 % (0.0-1.0); EOSINOPHILS # (AUTO) 0.1 (0.0-0.4); EOSINOPHILS % 0.4 % (0.0-6.0); HEMATOCRIT 30.1 % (38.2-49.6); HEMOGLOBIN 9.6 g/dL (14.0-18.0); LYMPHOCYTES # (AUTO) 1.1 (1.0-3.2); LYMPHOCYTES % 6.8 % (18.0-39.1); MEAN CORPUSCULAR HEMOGLOBIN 30.3 pg (28-32); MEAN CORPUSCULAR HGB CONC 31.9 g/dL (31-35); MONOCYTES # (AUTO) 0.6 (0.2-0.8); NEUTROPHILS # (AUTO) 13.7 (2.1-6.9); NEUTROPHILS % 87.8 % (38.7-80.0); PLATELET COUNT 268 x10e3/uL (140-360); RED BLOOD COUNT 3.17 x10e6/uL (4.3-5.7); RED CELL DISTRIBUTION WIDTH 15.9 % (11.7-14.4)
[2022-03-28 06:38] LABS: CALCIUM 7.6 mg/dL (8.4-10.2); CREATININE, SERUM 4.62 mg/dL (0.72-1.25)
[2022-03-28] MEDS: INSULIN REGULAR, HUMAN 100 UNIT/1 ML SQ SCH ×4 (07:30→20:49)
[2022-03-28] MEDS: METOPROLOL TARTRATE 25 MG TAB PO SCH ×2 (08:36→21:00)
[2022-03-28] MEDS: NIFEDIPINE CR 30 MG TAB PO SCH (08:36)
[2022-03-28] MEDS: GABAPENTIN 300 MG CAP PO SCH ×2 (08:36→16:35)
[2022-03-28] MEDS: LISINOPRIL 20 MG TAB PO SCH (08:36)
[2022-03-28] MEDS: SEVELAMER CARBONATE 800 MG TAB PO SCH ×3 (08:36→16:35)
[2022-03-28] MEDS: SODIUM BICARBONATE 650 MG TAB PO SCH ×3 (08:37→21:00)
[2022-03-28] MEDS: HYDROCODONE/APAP 5MG-325MG TAB PO PRN ×2 (13:07→21:08)
[2022-03-28] MEDS: COLLAGENASE OINTMENT 30 GM TUBE TP SCH ×2 (13:42→21:48)
[2022-03-28] MEDS ORDERED: GENTAMICIN 120MG/NS 100ML 100 ML IV ONE (14:00)
[2022-03-28] MEDS ORDERED: SODIUM CHLORIDE 0.9% 250ML 250 ML ONE (14:18)
[2022-03-28] MEDS ORDERED: PNEUMOCOCCAL VACCINE POLYVALENT 23 MCG/0.5 ML VIAL IM ONE (17:00)
[2022-03-28] MEDS: ATORVASTATIN 40 MG TAB PO SCH (20:59)
[2022-03-29] VITALS (8 sets, daily range): BP systolic 109–142; BP diastolic 60–72
[2022-03-29] MEDS: HYDROCODONE/APAP 5MG-325MG TAB PO PRN ×2 (01:15→08:46)
[2022-03-29] MEDS: LEVOTHYROXINE SODIUM 25 MCG TABLET PO SCH (06:04)
[2022-03-29] MEDS: HYDRALAZINE HCL 25 MG TAB PO SCH ×3 (06:04→22:00)
[2022-03-29] MEDS: INSULIN REGULAR, HUMAN 100 UNIT/1 ML SQ SCH ×4 (07:30→20:59)
[2022-03-29] MEDS: LISINOPRIL 20 MG TAB PO SCH (08:45)
[2022-03-29] MEDS: METOPROLOL TARTRATE 25 MG TAB PO SCH ×2 (08:45→20:58)
[2022-03-29] MEDS: GABAPENTIN 300 MG CAP PO SCH ×2 (08:45→16:45)
[2022-03-29] MEDS: SEVELAMER CARBONATE 800 MG TAB PO SCH ×3 (08:45→16:45)
[2022-03-29] MEDS: SODIUM BICARBONATE 650 MG TAB PO SCH ×3 (08:46→20:59)
[2022-03-29] MEDS: NIFEDIPINE CR 30 MG TAB PO SCH (08:46)
[2022-03-29] MEDS: COLLAGENASE OINTMENT 30 GM TUBE TP SCH ×2 (13:49→21:00)
[2022-03-29] MEDS: Morphine 2mg Syringe 2 MG/ML SYR IV PRN ×3 (14:43→21:59)
[2022-03-29] MEDS: ATORVASTATIN 40 MG TAB PO SCH (20:58)
[2022-03-30] VITALS (7 sets, daily range): BP systolic 119–167; BP diastolic 69–87
[2022-03-30] MEDS: Morphine 2mg Syringe 2 MG/ML SYR IV PRN ×2 (04:10→07:13)
[2022-03-30] MEDS: LEVOTHYROXINE SODIUM 25 MCG TABLET PO SCH (05:56)
[2022-03-30] MEDS: HYDRALAZINE HCL 25 MG TAB PO SCH ×3 (05:56→22:00)
[2022-03-30] MEDS: INSULIN REGULAR, HUMAN 100 UNIT/1 ML SQ SCH ×4 (07:30→21:00)
[2022-03-30] MEDS: LISINOPRIL 20 MG TAB PO SCH (08:41)
[2022-03-30] MEDS: SEVELAMER CARBONATE 800 MG TAB PO SCH ×3 (08:41→17:39)
[2022-03-30] MEDS: METOPROLOL TARTRATE 25 MG TAB PO SCH ×2 (08:41→21:47)
[2022-03-30] MEDS: GABAPENTIN 300 MG CAP PO SCH ×2 (08:41→17:39)
[2022-03-30] MEDS: COLLAGENASE OINTMENT 30 GM TUBE TP SCH ×2 (08:42→21:47)
[2022-03-30] MEDS: NIFEDIPINE CR 30 MG TAB PO SCH (08:42)
[2022-03-30] MEDS: SODIUM BICARBONATE 650 MG TAB PO SCH ×3 (08:42→21:46)
[2022-03-30 09:42] LABS: BASOPHILS # (AUTO) 0.1 (0.0-0.1); BASOPHILS % 0.4 % (0.0-1.0); EOSINOPHILS # (AUTO) 0.1 (0.0-0.4); HEMATOCRIT 34.5 % (38.2-49.6); HEMOGLOBIN 11.2 g/dL (14.0-18.0); LYMPHOCYTES # (AUTO) 1.5 (1.0-3.2); LYMPHOCYTES % 12.2 % (18.0-39.1); MEAN CORPUSCULAR HEMOGLOBIN 30.4 pg (28-32); MEAN CORPUSCULAR HGB CONC 32.5 g/dL (31-35); MEAN CORPUSCULAR VOLUME 93.5 fL (81-99); MONOCYTES # (AUTO) 0.5 (0.2-0.8); MONOCYTES % 4.2 % (4.4-11.3); NEUTROPHILS # (AUTO) 9.8 (2.1-6.9); NEUTROPHILS % 81.3 % (38.7-80.0); PLATELET COUNT 270 x10e3/uL (140-360); RED BLOOD COUNT 3.69 x10e6/uL (4.3-5.7); RED CELL DISTRIBUTION WIDTH 15.9 % (11.7-14.4)
[2022-03-30 10:01] LABS: ALBUMIN 1.4 g/dL (3.5-5.0); ALBUMIN/GLOBULIN RATIO 0.2 (0.8-2.0); ANION GAP 16.4 mmol/L (8-16); CALCIUM 7.4 mg/dL (8.4-10.2); CREATININE, SERUM 6.6 mg/dL (0.72-1.25); POTASSIUM 4.4 mmol/L (3.5-5.1)
[2022-03-30] MEDS ORDERED: SODIUM CHLORIDE 0.9% 1000ML 2,000 ML IV PRN (12:30)
[2022-03-30] MEDS ORDERED: BISACODYL 10 MG SUPP PR PRN (12:45)
[2022-03-30] MEDS: DOCUSATE SODIUM 100 MG CAP PO SCH ×2 (15:56→21:46)
[2022-03-30] MEDS ORDERED: POLYETHYLENE GLYCOL 3350 17 GM PACK PO SCH (17:00)
[2022-03-30] MEDS: ATORVASTATIN 40 MG TAB PO SCH (21:46)
[2022-03-31] VITALS (8 sets, daily range): BP systolic 120–172; BP diastolic 67–76
[2022-03-31] MEDS: Morphine 2mg Syringe 2 MG/ML SYR IV PRN ×2 (03:30→06:52)
[2022-03-31] MEDS: HYDRALAZINE HCL 25 MG TAB PO SCH ×3 (05:36→22:00)
[2022-03-31] MEDS: LEVOTHYROXINE SODIUM 25 MCG TABLET PO SCH (06:51)
[2022-03-31] MEDS: INSULIN REGULAR, HUMAN 100 UNIT/1 ML SQ SCH ×4 (07:30→20:30)
[2022-03-31] MEDS: COLLAGENASE OINTMENT 30 GM TUBE TP SCH ×2 (10:13→20:51)
[2022-03-31] MEDS ORDERED: ONDANSETRON HCL 4 MG ORAL DISINTEGRATING TAB PO PRN (11:15)
[2022-03-31] MEDS: SEVELAMER CARBONATE 800 MG TAB PO SCH ×3 (12:00→18:34)
[2022-03-31] MEDS: GABAPENTIN 300 MG CAP PO SCH ×2 (12:54→18:33)
[2022-03-31] MEDS: METOPROLOL TARTRATE 25 MG TAB PO SCH ×2 (12:54→22:15)
[2022-03-31] MEDS: LISINOPRIL 20 MG TAB PO SCH (12:54)
[2022-03-31] MEDS: SODIUM BICARBONATE 650 MG TAB PO SCH ×3 (12:55→21:48)
[2022-03-31] MEDS: NIFEDIPINE CR 30 MG TAB PO SCH (12:55)
[2022-03-31] MEDS ORDERED: FLUCONAZOLE 200 MG/100 ML 100 ML IV SCH (13:00)
[2022-03-31] MEDS: DOCUSATE SODIUM 100 MG CAP PO SCH (18:33)
[2022-03-31] MEDS: ATORVASTATIN 40 MG TAB PO SCH (20:51)
[2022-04-01] VITALS (8 sets, daily range): BP systolic 117–197; BP diastolic 65–82
[2022-04-01] MEDS: HYDRALAZINE HCL 25 MG TAB PO SCH ×3 (05:23→21:55)
[2022-04-01] MEDS: LEVOTHYROXINE SODIUM 25 MCG TABLET PO SCH (05:23)
[2022-04-01 06:08] LABS: BASOPHILS % 0.5 % (0.0-1.0); EOSINOPHILS # (AUTO) 0.1 (0.0-0.4); EOSINOPHILS % 1.6 % (0.0-6.0); HEMATOCRIT 32.2 % (38.2-49.6); HEMOGLOBIN 10.3 g/dL (14.0-18.0); LYMPHOCYTES # (AUTO) 1.5 (1.0-3.2); LYMPHOCYTES % 17.7 % (18.0-39.1); MEAN CORPUSCULAR HEMOGLOBIN 29.8 pg (28-32); MEAN CORPUSCULAR VOLUME 93.1 fL (81-99); MONOCYTES # (AUTO) 0.6 (0.2-0.8); MONOCYTES % 6.8 % (4.4-11.3); NEUTROPHILS # (AUTO) 6.3 (2.1-6.9); NEUTROPHILS % 72.8 % (38.7-80.0); PLATELET COUNT 251 x10e3/uL (140-360); RED BLOOD COUNT 3.46 x10e6/uL (4.3-5.7); RED CELL DISTRIBUTION WIDTH 16.3 % (11.7-14.4)
[2022-04-01 06:35] LABS: ALBUMIN 1.5 g/dL (3.5-5.0); ALBUMIN/GLOBULIN RATIO 0.2 (0.8-2.0); CALCIUM 7.8 mg/dL (8.4-10.2); CREATININE, SERUM 5.59 mg/dL (0.72-1.25)
[2022-04-01] MEDS: INSULIN REGULAR, HUMAN 100 UNIT/1 ML SQ SCH ×4 (07:30→20:26)
[2022-04-01] MEDS: SEVELAMER CARBONATE 800 MG TAB PO SCH ×3 (08:00→16:16)
[2022-04-01] MEDS: SODIUM BICARBONATE 650 MG TAB PO SCH ×3 (09:00→21:26)
[2022-04-01] MEDS: NIFEDIPINE CR 30 MG TAB PO SCH ×2 (09:00→16:20)
[2022-04-01] MEDS: LISINOPRIL 20 MG TAB PO SCH ×2 (09:00→16:22)
[2022-04-01] MEDS: DOCUSATE SODIUM 100 MG CAP PO SCH ×2 (09:00→16:19)
[2022-04-01] MEDS: GABAPENTIN 300 MG CAP PO SCH ×2 (09:00→16:18)
[2022-04-01] MEDS: METOPROLOL TARTRATE 25 MG TAB PO SCH ×3 (09:00→21:00)
[2022-04-01] MEDS: COLLAGENASE OINTMENT 30 GM TUBE TP SCH ×2 (09:14→20:24)
[2022-04-01] MEDS ORDERED: CEPHALEXIN500 M1 PO (12:12)
[2022-04-01] MEDS ORDERED: Collagenase TP (12:12)
[2022-04-01] MEDS ORDERED: ACETAMINOPHEN325 M1 PO (12:12)
[2022-04-01] MEDS ORDERED: ONDANSETRON ODT4 MG PO (12:12)
[2022-04-01] MEDS ORDERED: Docusate Sodium PO (12:12)
[2022-04-01] MEDS: Morphine 2mg Syringe 2 MG/ML SYR IV PRN (14:43)
[2022-04-01] MEDS: ATORVASTATIN 40 MG TAB PO SCH (20:23)
[2022-04-02 00:09] VITALS: BP 109/65
[2022-04-02 02:28] VITALS: BP 119/70
[2022-04-02] MEDS: Morphine 2mg Syringe 2 MG/ML SYR IV PRN ×2 (02:35→12:40)
[2022-04-02] MEDS: LEVOTHYROXINE SODIUM 25 MCG TABLET PO SCH (05:04)
[2022-04-02] MEDS: HYDRALAZINE HCL 25 MG TAB PO SCH ×2 (05:04→13:40)
[2022-04-02 05:38] VITALS: BP 122/60
[2022-04-02] MEDS: INSULIN REGULAR, HUMAN 100 UNIT/1 ML SQ SCH ×2 (07:30→11:30)
[2022-04-02 08:44] VITALS: BP 143/76
[2022-04-02] MEDS: GABAPENTIN 300 MG CAP PO SCH (09:23)
[2022-04-02] MEDS: DOCUSATE SODIUM 100 MG CAP PO SCH (09:23)
[2022-04-02] MEDS: LISINOPRIL 20 MG TAB PO SCH (09:24)
[2022-04-02] MEDS: SODIUM BICARBONATE 650 MG TAB PO SCH (09:24)
[2022-04-02] MEDS: NIFEDIPINE CR 30 MG TAB PO SCH (09:24)
[2022-04-02] MEDS: COLLAGENASE OINTMENT 30 GM TUBE TP SCH (09:24)
[2022-04-02] MEDS: METOPROLOL TARTRATE 25 MG TAB PO SCH (09:24)
[2022-04-02] MEDS: SEVELAMER CARBONATE 800 MG TAB PO SCH ×2 (09:25→11:48)
[2022-04-02] MEDS: HYDROCODONE/APAP 5MG-325MG TAB PO PRN (09:33)
[2022-04-02] MEDS ORDERED: POLYETHYLENE GLYCOL 3350 17 GM PACK PO PRN (09:45)
[2022-04-02 11:55] VITALS: BP 122/71
[2022-04-02 16:19] VITALS: BP 127/67
== END 2022-04-02 18:38 | DRG 853 ==
LOC: ER 18:01 → ERHOLD 20:29 → PACU V 03-27 10:39 → MED/SURG2 03-27 11:23
PROVIDERS: ADMIT Internal Medicine; ATTEND Internal Medicine
PROC: 3E03329 Introduction of Other Anti-infective into Peripheral Vein, Percutaneous Approach (ICD-10-PCS; 2022-03-26)
PROC: 5A1D70Z Performance of Urinary Filtration, Intermittent, Less than 6 Hours Per Day (ICD-10-PCS; 2022-03-27)
PROC: 0D9P0ZZ Drainage of Rectum, Open Approach (ICD-10-PCS; principal; 2022-03-27 09:00)
DX: A41.50 Gram-negative sepsis, unspecified (principal); N18.6 End stage renal disease; I12.0 Hypertensive chronic kidney disease with stage 5 chronic kidney disease or end stage renal disease; K61.1 Rectal abscess; N25.81 Secondary hyperparathyroidism of renal origin; L03.115 Cellulitis of right lower limb; E11.52 Type 2 diabetes mellitus with diabetic peripheral angiopathy with gangrene; I96 Gangrene, not elsewhere classified; L97.418 Non-pressure chronic ulcer of right heel and midfoot with other specified severity; R65.20 Severe sepsis without septic shock; E11.22 Type 2 diabetes mellitus with diabetic chronic kidney disease; E11.319 Type 2 diabetes mellitus with unspecified diabetic retinopathy without macular edema; K74.60 Unspecified cirrhosis of liver; L89.610 Pressure ulcer of right heel, unstageable; E11.42 Type 2 diabetes mellitus with diabetic polyneuropathy; B96.20 Unspecified Escherichia coli [E. coli] as the cause of diseases classified elsewhere; F17.210 Nicotine dependence, cigarettes, uncomplicated; M06.9 Rheumatoid arthritis, unspecified; D64.9 Anemia, unspecified; I35.0 Nonrheumatic aortic (valve) stenosis; I70.234 Atherosclerosis of native arteries of right leg with ulceration of heel and midfoot; Z83.3 Family history of diabetes mellitus; Z82.49 Family history of ischemic heart disease and other diseases of the circulatory system; Z99.2 Dependence on renal dialysis; Z89.412 Acquired absence of left great toe; Z89.421 Acquired absence of other right toe(s); Z20.822 Contact with and (suspected) exposure to COVID-19; Z79.82 Long term (current) use of aspirin; Z79.4 Long term (current) use of insulin
CPT/HCPCS: 36415; 71045; 74177; 80048; 80053; 82550; 82553; 82948; 83605; 84484; 85025; 87040; 87071; 87075; 87186; 87205; 90732; 90962; 93005; 93925; 94799; 97139; 99284; J0461; J0696; J1580; J2001; J2250; J2270; J2310; J2543; J3010; J3370; J7030; J7050; Q0162; Q9967; U0002

== ENCOUNTER 2022-05-05 07:27 | Inpatient (IN) | payer MEDICARE ==
[~2022-05-05] VITALS: Ht 172.7 cm; Wt 68.5 kg
[~2022-05-05 07:27] MED LIST changes: +ASPIRIN81 MG PO; +CEPHALEXIN500 M1 PO; +Collagenase TP; +Docusate Sodium PO; +ONDANSETRON ODT4 MG PO
[2022-05-05 07:47] LABS: BASOPHILS % 0.2 % (0.0-1.0); EOSINOPHILS # (AUTO) 0.1 (0.0-0.4); EOSINOPHILS % 0.3 % (0.0-6.0); HEMATOCRIT 30.1 % (38.2-49.6); LYMPHOCYTES # (AUTO) 1.1 (1.0-3.2); LYMPHOCYTES % 6.3 % (18.0-39.1); MEAN CORPUSCULAR HEMOGLOBIN 28.5 pg (28-32); MEAN CORPUSCULAR HGB CONC 33.2 g/dL (31-35); MEAN CORPUSCULAR VOLUME 85.8 fL (81-99); MONOCYTES # (AUTO) 0.7 (0.2-0.8); MONOCYTES % 3.8 % (4.4-11.3); NEUTROPHILS # (AUTO) 15.6 (2.1-6.9); NEUTROPHILS % 88.9 % (38.7-80.0); PLATELET COUNT 214 x10e3/uL (140-360); RED BLOOD COUNT 3.51 x10e6/uL (4.3-5.7); RED CELL DISTRIBUTION WIDTH 16.6 % (11.7-14.4)
[2022-05-05 08:10] LABS: ALANINE AMINOTRANSFERASE 57 IU/L (0-55); ALBUMIN 1.7 g/dL (3.5-5.0); ALBUMIN/GLOBULIN RATIO 0.2 (0.8-2.0); ALKALINE PHOSPHATASE 577 IU/L (40-150); ANION GAP 19.9 mmol/L (8-16); BLOOD UREA NITROGEN 66 mg/dL (7-26); BUN/CREATININE RATIO 8 (6-25); CALCIUM 7.4 mg/dL (8.4-10.2); CARBON DIOXIDE 19 mmol/L (22-29); CHLORIDE 95 mmol/L (98-107); CREATINE KINASE 70 IU/L (30-200); CREATININE, SERUM 8.54 mg/dL (0.72-1.25); GLUCOSE 76 mg/dL (74-118); POTASSIUM 4.9 mmol/L (3.5-5.1); SODIUM 129 mmol/L (136-145)
[2022-05-05 08:26] LABS: INR 1.17; PROTHROMBIN TIME 15.9 seconds (11.9-14.5)
[2022-05-05 08:27] LABS: PARTIAL THROMBOPLASTIN TIME 40.2 seconds (23.8-35.5)
[2022-05-05 10:37] VITALS: BP 158/84
[2022-05-05 10:39] VITALS: BP 158/84
[2022-05-05] MEDS ORDERED: SODIUM CHLORIDE 0.9% 250ML 250 ML ONE (11:17)
[2022-05-05] MEDS ORDERED: LACTULOSE10 GM/151 PO (11:27)
[2022-05-05] MEDS ORDERED: LEVOTHYROXINE50 MCG PO (11:27)
[2022-05-05] MEDS ORDERED: PANTOPRAZOLE SO40 MG PO (11:27)
[2022-05-05] MEDS ORDERED: HYDROCODON-ACE1 EA12 (11:27)
[2022-05-05] MEDS ORDERED: XIFAXAN550 MG PO (11:27)
[2022-05-05] MEDS ORDERED: RISPERIDONE0.5 MG PO (11:30)
[2022-05-05] MEDS ORDERED: METOPROLOL TART25 MG PO (11:30)
[2022-05-05 11:46] VITALS: BP 158/84
[2022-05-05] MEDS: METRONIDAZOLE 500MG/NS 100ML 100 ML IV SCH ×2 (13:00→20:35)
[2022-05-05 16:27] VITALS: BP 162/76
[2022-05-05] MEDS ORDERED: ONDANSETRON HCL INJ 2MG/ML 2ML 2 MG/ML VIAL IV PRN (17:30)
[2022-05-05] MEDS ORDERED: HYDRALAZINE HCL 20 MG/ML VIAL IV PRN (17:30)
[2022-05-05] MEDS ORDERED: ACETAMINOPHEN 325 MG TAB PO PRN (17:30)
[2022-05-05] MEDS ORDERED: RISPERIDONE 0.5 MG TAB PO PRN (17:45)
[2022-05-05 20:00] VITALS: BP 139/73
[2022-05-05] MEDS: ATORVASTATIN 40 MG TAB PO SCH (20:35)
[2022-05-05] MEDS: SODIUM BICARBONATE 650 MG TAB PO SCH (20:36)
[2022-05-05] MEDS: RIFAXIMIN 550 MG TABLET PO SCH (20:39)
[2022-05-05 21:00] VITALS: BP 139/73
[2022-05-05] MEDS: HYDRALAZINE HCL 25 MG TAB PO SCH (22:27)
[2022-05-06] VITALS (10 sets, daily range): BP systolic 119–172; BP diastolic 61–93
[2022-05-06 02:25] LABS: % IRON SATURATION 71 % (15-50); IRON 85 ug/dL (65-175); TOTAL IRON BINDING CAPACITY 119 ug/dL (261-478); TRANSFERRIN 85 mg/dL (174-364)
[2022-05-06] MEDS: METRONIDAZOLE 500MG/NS 100ML 100 ML IV SCH ×3 (04:17→20:00)
[2022-05-06] MEDS: PANTOPRAZOLE SOD 40 MG TABEC PO SCH (06:01)
[2022-05-06] MEDS: LEVOTHYROXINE SODIUM 50 MCG TAB PO SCH (06:01)
[2022-05-06] MEDS: HYDRALAZINE HCL 25 MG TAB PO SCH ×3 (06:01→22:00)
[2022-05-06 06:16] LABS: BASOPHILS % 0.3 % (0.0-1.0); EOSINOPHILS # (AUTO) 0.1 (0.0-0.4); EOSINOPHILS % 0.4 % (0.0-6.0); HEMATOCRIT 28.4 % (38.2-49.6); HEMOGLOBIN 9.4 g/dL (14.0-18.0); LYMPHOCYTES # (AUTO) 1.6 (1.0-3.2); LYMPHOCYTES % 13.3 % (18.0-39.1); MEAN CORPUSCULAR HEMOGLOBIN 28.9 pg (28-32); MEAN CORPUSCULAR HGB CONC 33.1 g/dL (31-35); MEAN CORPUSCULAR VOLUME 87.4 fL (81-99); MONOCYTES # (AUTO) 0.4 (0.2-0.8); MONOCYTES % 3.6 % (4.4-11.3); NEUTROPHILS # (AUTO) 9.8 (2.1-6.9); NEUTROPHILS % 82.1 % (38.7-80.0); PLATELET COUNT 200 x10e3/uL (140-360); RED BLOOD COUNT 3.25 x10e6/uL (4.3-5.7)
[2022-05-06 06:41] LABS: ALBUMIN 1.5 g/dL (3.5-5.0); ALBUMIN/GLOBULIN RATIO 0.2 (0.8-2.0); ANION GAP 14.7 mmol/L (8-16); CALCIUM 7.7 mg/dL (8.4-10.2); CREATININE, SERUM 5.36 mg/dL (0.72-1.25); POTASSIUM 3.7 mmol/L (3.5-5.1)
[2022-05-06] MEDS: LACTULOSE SYRUP 20 GM/30 ML UDC PO SCH (09:00)
[2022-05-06] MEDS ORDERED: LACTULOSE PO SCH (09:00)
[2022-05-06] MEDS: DICYCLOMINE HCL 10 MG CAP PO SCH ×4 (09:38→21:54)
[2022-05-06] MEDS: METOPROLOL TARTRATE 25 MG TAB PO SCH ×2 (09:39→16:20)
[2022-05-06] MEDS: GABAPENTIN 100 MG CAP PO SCH ×2 (09:39→16:22)
[2022-05-06] MEDS: NIFEDIPINE CR 30 MG TAB PO SCH (09:40)
[2022-05-06] MEDS: LISINOPRIL 20 MG TAB PO SCH (09:40)
[2022-05-06] MEDS: RIFAXIMIN 550 MG TABLET PO SCH ×2 (09:41→22:04)
[2022-05-06] MEDS: SODIUM BICARBONATE 650 MG TAB PO SCH ×3 (09:41→21:54)
[2022-05-06] MEDS: SEVELAMER CARBONATE 800 MG TAB PO SCH ×3 (09:41→16:22)
[2022-05-06] MEDS: HYDROCODONE/APAP 7.5MG-325MG 1 EA TAB PO PRN ×2 (12:24→23:09)
[2022-05-06] MEDS: COLLAGENASE 5 GM TUBE TP SCH (13:24)
[2022-05-06 17:24] LABS: BODY FLUID APPEARANCE SL.CLOUDY; BODY FLUID COLOR STRAW; BODY FLUID TYPE PERITONEAL; RBC,BODY FLUID 1000 cells/uL; WBC,BODY FLUID 396 cells/uL
[2022-05-06 18:28] LABS: LYMPHOCYTES,BODY FLUID 7 %; MONO/MACROPHG,BODY FLUID 67 %; NEUTROPHILS,BODY FLUID 7 %; OTHER CELLS,BODY FLUID 19 %
[2022-05-06] MEDS: ATORVASTATIN 40 MG TAB PO SCH (21:54)
[2022-05-07] VITALS (8 sets, daily range): BP systolic 113–172; BP diastolic 62–74
[2022-05-07] MEDS: LEVOTHYROXINE SODIUM 50 MCG TAB PO SCH (04:38)
[2022-05-07] MEDS: METRONIDAZOLE 500MG/NS 100ML 100 ML IV SCH ×3 (04:39→20:43)
[2022-05-07] MEDS: HYDRALAZINE HCL 25 MG TAB PO SCH ×3 (06:00→22:50)
[2022-05-07] MEDS: PANTOPRAZOLE SOD 40 MG TABEC PO SCH (06:21)
[2022-05-07] MEDS ORDERED: SODIUM CHLORIDE 0.9% 1000ML 2,000 ML ONE (06:57)
[2022-05-07] MEDS: SEVELAMER CARBONATE 800 MG TAB PO SCH ×3 (08:03→17:57)
[2022-05-07] MEDS: LACTULOSE SYRUP 20 GM/30 ML UDC PO SCH (08:03)
[2022-05-07] MEDS: DICYCLOMINE HCL 10 MG CAP PO SCH ×4 (08:03→22:44)
[2022-05-07] MEDS: METOPROLOL TARTRATE 25 MG TAB PO SCH ×2 (08:03→17:58)
[2022-05-07] MEDS: SODIUM BICARBONATE 650 MG TAB PO SCH ×3 (08:04→22:45)
[2022-05-07] MEDS: RIFAXIMIN 550 MG TABLET PO SCH ×2 (08:04→22:45)
[2022-05-07] MEDS: GABAPENTIN 100 MG CAP PO SCH ×2 (08:04→17:57)
[2022-05-07 08:37] LABS: ALBUMIN 1.4 g/dL (3.5-5.0); ALBUMIN/GLOBULIN RATIO 0.2 (0.8-2.0); ANION GAP 16.3 mmol/L (8-16); CALCIUM 7.3 mg/dL (8.4-10.2); CREATININE, SERUM 6.12 mg/dL (0.72-1.25); POTASSIUM 4.3 mmol/L (3.5-5.1)
[2022-05-07] MEDS: NIFEDIPINE CR 30 MG TAB PO SCH (09:00)
[2022-05-07] MEDS: LISINOPRIL 20 MG TAB PO SCH (09:00)
[2022-05-07 12:27] LABS: BASOPHILS % 0.4 % (0.0-1.0); EOSINOPHILS # (AUTO) 0.1 (0.0-0.4); EOSINOPHILS % 1.3 % (0.0-6.0); HEMATOCRIT 29.3 % (38.2-49.6); HEMOGLOBIN 9.6 g/dL (14.0-18.0); LYMPHOCYTES # (AUTO) 1.6 (1.0-3.2); LYMPHOCYTES % 20.9 % (18.0-39.1); MEAN CORPUSCULAR HEMOGLOBIN 28.9 pg (28-32); MEAN CORPUSCULAR HGB CONC 32.8 g/dL (31-35); MEAN CORPUSCULAR VOLUME 88.3 fL (81-99); MONOCYTES # (AUTO) 0.5 (0.2-0.8); MONOCYTES % 5.9 % (4.4-11.3); NEUTROPHILS # (AUTO) 5.5 (2.1-6.9); NEUTROPHILS % 71.2 % (38.7-80.0); PLATELET COUNT 188 x10e3/uL (140-360); RED BLOOD COUNT 3.32 x10e6/uL (4.3-5.7); RED CELL DISTRIBUTION WIDTH 17.3 % (11.7-14.4)
[2022-05-07] MEDS: COLLAGENASE 5 GM TUBE TP SCH (13:26)
[2022-05-07] MEDS: VANCOMYCIN HCL 125 MG CAPSULE PO SCH ×3 (14:24→23:06)
[2022-05-07 16:56] LABS: ALPHA-1-ANTITRYPSIN 163 mg/dL (101-187)
[2022-05-07] MEDS: ATORVASTATIN 40 MG TAB PO SCH (22:45)
[2022-05-08 01:13] VITALS: BP 173/78
[2022-05-08 03:56] VITALS: BP 173/66
[2022-05-08] MEDS: METRONIDAZOLE 500MG/NS 100ML 100 ML IV SCH (05:07)
[2022-05-08] MEDS: LEVOTHYROXINE SODIUM 50 MCG TAB PO SCH (05:42)
[2022-05-08] MEDS: VANCOMYCIN HCL 125 MG CAPSULE PO SCH ×3 (06:00→16:02)
[2022-05-08] MEDS: PANTOPRAZOLE SOD 40 MG TABEC PO SCH (06:00)
[2022-05-08] MEDS: HYDRALAZINE HCL 25 MG TAB PO SCH ×2 (06:20→16:02)
[2022-05-08 06:41] LABS: BASOPHILS % 0.5 % (0.0-1.0); EOSINOPHILS # (AUTO) 0.1 (0.0-0.4); EOSINOPHILS % 0.9 % (0.0-6.0); HEMATOCRIT 29.8 % (38.2-49.6); HEMOGLOBIN 9.9 g/dL (14.0-18.0); LYMPHOCYTES # (AUTO) 1.7 (1.0-3.2); LYMPHOCYTES % 19.7 % (18.0-39.1); MEAN CORPUSCULAR HEMOGLOBIN 29.3 pg (28-32); MEAN CORPUSCULAR HGB CONC 33.2 g/dL (31-35); MEAN CORPUSCULAR VOLUME 88.2 fL (81-99); MONOCYTES # (AUTO) 0.5 (0.2-0.8); NEUTROPHILS # (AUTO) 6.3 (2.1-6.9); NEUTROPHILS % 72.4 % (38.7-80.0); PLATELET COUNT 191 x10e3/uL (140-360); RED BLOOD COUNT 3.38 x10e6/uL (4.3-5.7); RED CELL DISTRIBUTION WIDTH 17.7 % (11.7-14.4)
[2022-05-08 08:16] VITALS: BP 164/72
[2022-05-08 08:26] VITALS: BP 164/72
[2022-05-08] MEDS: LACTULOSE SYRUP 20 GM/30 ML UDC PO SCH (09:00)
[2022-05-08] MEDS: DICYCLOMINE HCL 10 MG CAP PO SCH ×2 (09:25→16:02)
[2022-05-08] MEDS: METOPROLOL TARTRATE 25 MG TAB PO SCH (09:26)
[2022-05-08] MEDS: GABAPENTIN 100 MG CAP PO SCH (09:27)
[2022-05-08] MEDS: NIFEDIPINE CR 30 MG TAB PO SCH (09:27)
[2022-05-08] MEDS: SODIUM BICARBONATE 650 MG TAB PO SCH ×2 (09:28→16:02)
[2022-05-08] MEDS: LISINOPRIL 20 MG TAB PO SCH (09:28)
[2022-05-08] MEDS: SEVELAMER CARBONATE 800 MG TAB PO SCH ×2 (09:29→16:02)
[2022-05-08] MEDS: RIFAXIMIN 550 MG TABLET PO SCH (09:37)
[2022-05-08] MEDS ORDERED: METRONIDAZOLE 500 MG TAB PO SCH ×2 (12:45→14:45)
[2022-05-08] MEDS ORDERED: VANCOMYCIN HCL125 MG PO (13:28)
[2022-05-08] MEDS ORDERED: DICYCLOMINE HCL10 MG PO (13:28)
== END 2022-05-08 17:56 | disposition home or self-care (01) | DRG 682 ==
LOC: ER 07:33 → ERHOLD 08:39 → MED/SURG3 10:15
PROVIDERS: ADMIT Internal Medicine; ATTEND Internal Medicine
PROC: 5A1D70Z Performance of Urinary Filtration, Intermittent, Less than 6 Hours Per Day (ICD-10-PCS; 2022-05-05)
PROC: 0W9G3ZZ Drainage of Peritoneal Cavity, Percutaneous Approach (ICD-10-PCS; principal; 2022-05-06)
DX: I13.11 Hypertensive heart and chronic kidney disease without heart failure, with stage 5 chronic kidney disease, or end stage renal disease (principal); N18.6 End stage renal disease; A04.72 Enterocolitis due to Clostridium difficile, not specified as recurrent; R18.8 Other ascites; E87.1 Hypo-osmolality and hyponatremia; E87.2 Acidosis; K74.60 Unspecified cirrhosis of liver; E11.22 Type 2 diabetes mellitus with diabetic chronic kidney disease; Z99.2 Dependence on renal dialysis; D63.1 Anemia in chronic kidney disease; K76.0 Fatty (change of) liver, not elsewhere classified; M06.9 Rheumatoid arthritis, unspecified; M19.90 Unspecified osteoarthritis, unspecified site; Z89.422 Acquired absence of other left toe(s); R94.5 Abnormal results of liver function studies; I25.10 Atherosclerotic heart disease of native coronary artery without angina pectoris; Z74.01 Bed confinement status; R15.2 Fecal urgency; Z20.822 Contact with and (suspected) exposure to COVID-19
CPT/HCPCS: 0223U; 36415; 49083; 71045; 74470; 76705; 80053; 81161; 81220; 82040; 82103; 82105; 82390; 82550; 82553; 82607; 82746; 82948; 83540; 83630; 83880; 83993; 84157; 84443; 84466; 84484; 85025; 85045; 85610; 85730; 86039; 86255; 86705; 86706; 87045; 87070; 87177; 87205; 87324; 87340; 87449; 87493; 88112; 88305; 88342; 89051; 93005; 94799; 97139; 99251; 99284; J0696; J2405; J7030; J7050

== ENCOUNTER 2022-05-14 09:06 | Emergency (ER) | payer MEDICARE ==
[~2022-05-14] VITALS: Ht 172.7 cm; Wt 68.5 kg
[~2022-05-14 09:06] MED LIST changes: +DICYCLOMINE HCL10 MG PO; +HYDROCODON-ACE1 EA12; +LACTULOSE10 GM/151 PO; +LEVOTHYROXINE50 MCG PO; +METOPROLOL TART25 MG PO; +RISPERIDONE0.5 MG PO; +VANCOMYCIN HCL125 MG PO; +XIFAXAN550 MG PO
[2022-05-14 09:27] LABS: BASOPHILS # (AUTO) 0.1 (0.0-0.1); BASOPHILS % 0.8 % (0.0-1.0); EOSINOPHILS # (AUTO) 0.2 (0.0-0.4); EOSINOPHILS % 2.7 % (0.0-6.0); HEMATOCRIT 27.7 % (38.2-49.6); HEMOGLOBIN 8.8 g/dL (14.0-18.0); LYMPHOCYTES % 28.2 % (18.0-39.1); MEAN CORPUSCULAR HEMOGLOBIN 29.1 pg (28-32); MEAN CORPUSCULAR HGB CONC 31.8 g/dL (31-35); MEAN CORPUSCULAR VOLUME 91.7 fL (81-99); MONOCYTES # (AUTO) 0.5 (0.2-0.8); MONOCYTES % 6.3 % (4.4-11.3); NEUTROPHILS # (AUTO) 4.4 (2.1-6.9); NEUTROPHILS % 61.9 % (38.7-80.0); PLATELET COUNT 161 x10e3/uL (140-360); RED BLOOD COUNT 3.02 x10e6/uL (4.3-5.7); RED CELL DISTRIBUTION WIDTH 17.6 % (11.7-14.4)
[2022-05-14 09:46] LABS: INR 1.26; PROTHROMBIN TIME 16.9 seconds (11.9-14.5)
[2022-05-14 09:52] LABS: ALBUMIN 1.5 g/dL (3.5-5.0); ALBUMIN/GLOBULIN RATIO 0.2 (0.8-2.0); CALCIUM 7.3 mg/dL (8.4-10.2); CREATININE, SERUM 4.8 mg/dL (0.72-1.25)
[2022-05-14 10:00] LABS: CREATINE KINASE MB 3.9 ng/mL (0-5.0)
[2022-05-14 10:19] LABS: PARTIAL THROMBOPLASTIN TIME 135.9 seconds (23.8-35.5)
== END 2022-05-14 12:45 | disposition home or self-care (01) ==
LOC: ER 09:15
DX: R25.2 Cramp and spasm (principal); M79.604 Pain in right leg; I12.0 Hypertensive chronic kidney disease with stage 5 chronic kidney disease or end stage renal disease; E11.22 Type 2 diabetes mellitus with diabetic chronic kidney disease; N18.6 End stage renal disease; Z99.2 Dependence on renal dialysis; I25.10 Atherosclerotic heart disease of native coronary artery without angina pectoris; K76.9 Liver disease, unspecified; D64.9 Anemia, unspecified; R94.31 Abnormal electrocardiogram [ECG] [EKG]; F17.210 Nicotine dependence, cigarettes, uncomplicated
CPT/HCPCS: 36415; 71045; 80053; 82550; 82553; 83880; 84484; 85025; 85610; 85730; 93005; 93971; 99284

== ENCOUNTER 2022-05-19 06:55 | Inpatient (IN) | payer MEDICARE ==
[~2022-05-19] VITALS: Ht 172.7 cm; Wt 72.6 kg
[2022-05-19 07:30] LABS: BASOPHILS % 0.3 % (0.0-1.0); EOSINOPHILS # (AUTO) 0.2 (0.0-0.4); EOSINOPHILS % 1.3 % (0.0-6.0); HEMOGLOBIN 8.9 g/dL (14.0-18.0); LYMPHOCYTES # (AUTO) 2.3 (1.0-3.2); LYMPHOCYTES % 17.8 % (18.0-39.1); MEAN CORPUSCULAR HEMOGLOBIN 28.8 pg (28-32); MEAN CORPUSCULAR HGB CONC 31.8 g/dL (31-35); MEAN CORPUSCULAR VOLUME 90.6 fL (81-99); MONOCYTES # (AUTO) 0.6 (0.2-0.8); NEUTROPHILS # (AUTO) 9.5 (2.1-6.9); NEUTROPHILS % 75.2 % (38.7-80.0); PLATELET COUNT 206 x10e3/uL (140-360); RED BLOOD COUNT 3.09 x10e6/uL (4.3-5.7); RED CELL DISTRIBUTION WIDTH 17.9 % (11.7-14.4)
[2022-05-19] MEDS ORDERED: Vancomycin IV 1 GM in SODIUM CHLORIDE 0.9% 250ML 250 ML IV SCH (07:30)
[2022-05-19 07:50] LABS: INR 1.17; PARTIAL THROMBOPLASTIN TIME 39.7 seconds (23.8-35.5); PROTHROMBIN TIME 15.9 seconds (11.9-14.5)
[2022-05-19 07:58] LABS: ALBUMIN 1.4 g/dL (3.5-5.0); ALBUMIN/GLOBULIN RATIO 0.2 (0.8-2.0); ANION GAP 20.3 mmol/L (8-16); CALCIUM 7.3 mg/dL (8.4-10.2); CREATININE, SERUM 8.99 mg/dL (0.72-1.25)
[2022-05-19 08:04] LABS: POTASSIUM 6.3 mmol/L (3.5-5.1)
[2022-05-19] MEDS ORDERED: SODIUM BICARBONATE 8.4% INJ 50 ML SYR IV STA (08:07)
[2022-05-19] MEDS ORDERED: CALCIUM CHLORIDE 10% 1.36 MEQ/ML 10ML SYR IV STA (08:07)
[2022-05-19] MEDS ORDERED: ALBUTEROL SULF 0.083% NEB SOLN 3 ML NEB NEB STA (08:07)
[2022-05-19] MEDS ORDERED: DEXTROSE 50% SYRINGE 50 ML IV STA (08:07)
[2022-05-19] MEDS ORDERED: SOD POLYSTYRENE SULFONATE SUSP 15 GM/60 ML BTL PO ONE (08:15)
[2022-05-19] MEDS ORDERED: SODIUM CHLORIDE 0.9% 100 ML ONE (08:37)
[2022-05-19] MEDS ORDERED: CALCIUM CHLORIDE 13.6 MEQ in SODIUM CHLORIDE 0.9% 100 ML IV ONE (08:45)
[2022-05-19] MEDS ORDERED: CALCIUM GLUC 1 G/50 ML NACL 50 ML IV ONE (08:53)
[2022-05-19] MEDS ORDERED: DEXTROSE 50% SYRINGE 50 ML IV PRN ×2 (09:15→13:30)
[2022-05-19] MEDS ORDERED: ONDANSETRON HCL INJ 2MG/ML 2ML 2 MG/ML VIAL IV PRN ×2 (09:15→13:30)
[2022-05-19] MEDS ORDERED: BENZONATATE 100 MG CAP PO PRN (13:30)
[2022-05-19] MEDS ORDERED: ALBUTEROL/IPRATROPIUM 3 ML NEB NEB PRN (13:30)
[2022-05-19] MEDS ORDERED: DOCUSATE SODIUM 100 MG CAP PO PRN (13:30)
[2022-05-19] MEDS ORDERED: MELATONIN 5 MG TABLET PO PRN (13:30)
[2022-05-19] MEDS ORDERED: SIMETHICONE 80 MG CHEW PO PRN (13:30)
[2022-05-19] MEDS ORDERED: DIPHENHYDRAMINE HCL 25 MG CAP PO PRN (13:30)
[2022-05-19] MEDS ORDERED: Vancomycin IV 1 GM in SODIUM CHLORIDE 0.9% 250ML 250 ML IV ONE (15:00)
[2022-05-19 18:00] LABS: ALBUMIN 1.4 g/dL (3.5-5.0); ALBUMIN/GLOBULIN RATIO 0.2 (0.8-2.0); ANION GAP 14.9 mmol/L (8-16); CALCIUM 7.4 mg/dL (8.4-10.2); CREATININE, SERUM 5.12 mg/dL (0.72-1.25)
[2022-05-19 18:03] LABS: POTASSIUM 3.9 mmol/L (3.5-5.1)
[2022-05-19 18:04] VITALS: BP 180/78
[2022-05-19] MEDS ORDERED: BUMETANIDE1 MG PO (18:11)
[2022-05-19 18:12] VITALS: BP 180/78
[2022-05-19 18:14] VITALS: BP 180/78
[2022-05-19] MEDS: DEXTROSE 5% 1,000 ML IV SCH (18:38)
[2022-05-19] MEDS: VANCOMYCIN HCL 125 MG CAPSULE PO SCH ×2 (18:38→23:25)
[2022-05-19] MEDS: ACETAMINOPHEN 325 MG TAB PO PRN (18:39)
[2022-05-19] MEDS: LIDOCAINE 4% PATCH TP PRN (18:39)
[2022-05-19 20:00] VITALS: BP 127/55
[2022-05-19 21:00] VITALS: BP 127/55
[2022-05-20] VITALS (10 sets, daily range): BP systolic 120–203; BP diastolic 44–83
[2022-05-20] MEDS: VANCOMYCIN HCL 125 MG CAPSULE PO SCH ×4 (06:19→23:54)
[2022-05-20 06:25] LABS: BASOPHILS % 0.4 % (0.0-1.0); EOSINOPHILS # (AUTO) 0.2 (0.0-0.4); EOSINOPHILS % 2.7 % (0.0-6.0); HEMATOCRIT 26.7 % (38.2-49.6); HEMOGLOBIN 8.5 g/dL (14.0-18.0); LYMPHOCYTES # (AUTO) 1.7 (1.0-3.2); LYMPHOCYTES % 22.7 % (18.0-39.1); MEAN CORPUSCULAR HEMOGLOBIN 28.7 pg (28-32); MEAN CORPUSCULAR HGB CONC 31.8 g/dL (31-35); MEAN CORPUSCULAR VOLUME 90.2 fL (81-99); MONOCYTES # (AUTO) 0.5 (0.2-0.8); NEUTROPHILS % 66.8 % (38.7-80.0); PLATELET COUNT 171 x10e3/uL (140-360); RED BLOOD COUNT 2.96 x10e6/uL (4.3-5.7); RED CELL DISTRIBUTION WIDTH 17.9 % (11.7-14.4)
[2022-05-20 06:48] LABS: ALBUMIN 1.3 g/dL (3.5-5.0); ALBUMIN/GLOBULIN RATIO 0.2 (0.8-2.0); CALCIUM 7.2 mg/dL (8.4-10.2); CREATININE, SERUM 5.82 mg/dL (0.72-1.25)
[2022-05-20 07:14] LABS: PHOSPHORUS 6.3 MG/DL (2.3-4.7)
[2022-05-20 07:32] LABS: THYROID STIMULATING HORMONE 7.564 uIU/mL (0.350-4.940)
[2022-05-20] MEDS: PANTOPRAZOLE SOD 40 MG TABEC PO SCH (08:29)
[2022-05-20] MEDS: HYDRALAZINE HCL 20 MG/ML VIAL IV PRN (08:33)
[2022-05-20] MEDS ORDERED: RISPERIDONE 0.5 MG TAB PO PRN (09:00)
[2022-05-20] MEDS ORDERED: METOPROLOL TARTRATE 25 MG TAB PO SCH (09:00)
[2022-05-20] MEDS ORDERED: SEVELAMER CARBONATE 800 MG TAB PO SCH (09:30)
[2022-05-20] MEDS ORDERED: SODIUM BICARBONATE 650 MG TAB PO SCH (09:30)
[2022-05-20] MEDS: RIFAXIMIN 550 MG TABLET PO SCH ×2 (09:36→21:14)
[2022-05-20] MEDS: LISINOPRIL 20 MG TAB PO SCH (09:36)
[2022-05-20] MEDS: NIFEDIPINE CR 30 MG TAB PO SCH (09:36)
[2022-05-20] MEDS: ACETAMINOPHEN 325 MG TAB PO PRN (10:51)
[2022-05-20] MEDS: SEVELAMER CARBONATE 800 MG TAB PO SCH ×2 (10:52→16:08)
[2022-05-20] MEDS: SODIUM BICARBONATE 650 MG TAB PO SCH ×2 (10:52→16:07)
[2022-05-20] MEDS: HYDRALAZINE HCL 25 MG TAB PO SCH ×2 (14:00→21:14)
[2022-05-20] MEDS ORDERED: ALBUMIN 25% 12.5GM 50ML 100 ML IV ONE (15:00)
[2022-05-20] MEDS: GABAPENTIN 100 MG CAP PO SCH ×2 (15:59→21:14)
[2022-05-20] MEDS: DEXTROSE 5% 1,000 ML IV SCH (16:12)
[2022-05-20] MEDS: HYDROCODONE/APAP 5MG-325MG TAB PO PRN ×2 (16:31→23:54)
[2022-05-20] MEDS: ATORVASTATIN 40 MG TAB PO SCH (21:14)
[2022-05-21] MEDS: DEXTROSE 5% 1,000 ML IV SCH ×2 (03:30→21:48)
[2022-05-21 04:20] VITALS: BP 154/87
[2022-05-21] MEDS: VANCOMYCIN HCL 125 MG CAPSULE PO SCH ×4 (06:36→23:49)
[2022-05-21] MEDS: HYDRALAZINE HCL 25 MG TAB PO SCH ×3 (06:37→22:00)
[2022-05-21] MEDS: LEVOTHYROXINE SODIUM 50 MCG TAB PO SCH (06:37)
[2022-05-21] MEDS: HYDROCODONE/APAP 5MG-325MG TAB PO PRN (06:41)
[2022-05-21 06:53] LABS: INR 1.21; PARTIAL THROMBOPLASTIN TIME 40.8 seconds (23.8-35.5); PROTHROMBIN TIME 16.4 seconds (11.9-14.5)
[2022-05-21] MEDS ORDERED: SODIUM CHLORIDE 0.9% 1000ML 2,000 ML ONE (08:07)
[2022-05-21 08:26] VITALS: BP 152/73
[2022-05-21] MEDS: BALSAM PERU/CASTOR OIL 60 GM OINT...G. TP SCH (09:00)
[2022-05-21] MEDS: NIFEDIPINE CR 30 MG TAB PO SCH (09:00)
[2022-05-21] MEDS: PANTOPRAZOLE SOD 40 MG TABEC PO SCH (09:01)
[2022-05-21] MEDS: SEVELAMER CARBONATE 800 MG TAB PO SCH ×3 (09:02→16:30)
[2022-05-21] MEDS: RIFAXIMIN 550 MG TABLET PO SCH ×2 (09:03→21:43)
[2022-05-21] MEDS: SODIUM BICARBONATE 650 MG TAB PO SCH ×3 (09:03→18:33)
[2022-05-21] MEDS: GABAPENTIN 100 MG CAP PO SCH ×3 (09:03→21:43)
[2022-05-21] MEDS: LISINOPRIL 20 MG TAB PO SCH (09:04)
[2022-05-21 09:09] LABS: ANION GAP 14.9 mmol/L (8-16); CREATININE, SERUM 5.95 mg/dL (0.72-1.25); POTASSIUM 3.9 mmol/L (3.5-5.1)
[2022-05-21] MEDS: CEFTRIAXONE 2 GM in SODIUM CHLORIDE 0.9% 100 ML IV SCH (09:13)
[2022-05-21 11:13] VITALS: BP 108/67
[2022-05-21] MEDS ORDERED: LIDOCAINE/PRILOCAINE 2.5-2.5% KIT TOP ONE (13:30)
[2022-05-21 15:37] VITALS: BP 96/56
[2022-05-21] MEDS: COLLAGENASE 5 GM TUBE TP SCH (18:36)
[2022-05-21 19:27] VITALS: BP 135/71
[2022-05-21] MEDS: ATORVASTATIN 40 MG TAB PO SCH (21:43)
[2022-05-22] VITALS (10 sets, daily range): BP systolic 146–179; BP diastolic 56–90
[2022-05-22] MEDS: HYDRALAZINE HCL 25 MG TAB PO SCH ×3 (05:07→22:10)
[2022-05-22] MEDS: LEVOTHYROXINE SODIUM 50 MCG TAB PO SCH (05:08)
[2022-05-22] MEDS: VANCOMYCIN HCL 125 MG CAPSULE PO SCH ×4 (05:08→23:49)
[2022-05-22] MEDS: HYDRALAZINE HCL 20 MG/ML VIAL IV PRN (05:09)
[2022-05-22] MEDS: SODIUM BICARBONATE 650 MG TAB PO SCH ×3 (07:30→17:15)
[2022-05-22] MEDS: SEVELAMER CARBONATE 800 MG TAB PO SCH ×3 (07:30→17:15)
[2022-05-22] MEDS: PANTOPRAZOLE SOD 40 MG TABEC PO SCH (07:30)
[2022-05-22] MEDS ORDERED: ALBUMIN 25% 25GM 100ML 0.25 GM/ML BTL IV ONE (08:00)
[2022-05-22] MEDS ORDERED: ALBUMIN 25% 12.5GM 50ML 100 ML IV ONE (08:00)
[2022-05-22] MEDS: NIFEDIPINE CR 30 MG TAB PO SCH (09:00)
[2022-05-22] MEDS: GABAPENTIN 100 MG CAP PO SCH ×3 (09:00→22:09)
[2022-05-22] MEDS: LISINOPRIL 20 MG TAB PO SCH (09:00)
[2022-05-22] MEDS: COLLAGENASE 5 GM TUBE TP SCH (09:10)
[2022-05-22] MEDS: BALSAM PERU/CASTOR OIL 60 GM OINT...G. TP SCH (09:10)
[2022-05-22] MEDS: RIFAXIMIN 550 MG TABLET PO SCH ×2 (09:30→22:09)
[2022-05-22] MEDS: CEFTRIAXONE 2 GM in SODIUM CHLORIDE 0.9% 100 ML IV SCH (09:42)
[2022-05-22] MEDS ORDERED: ONDANSETRON HCL 4 MG ORAL DISINTEGRATING TAB PO PRN (12:45)
[2022-05-22] MEDS ORDERED: ALBUMIN 25% 12.5GM 50ML 150 ML IV ONE (14:51)
[2022-05-22] MEDS ORDERED: Vancomycin IV 1 GM in SODIUM CHLORIDE 0.9% 250ML 250 ML IV ONE (21:45)
[2022-05-22] MEDS: ATORVASTATIN 40 MG TAB PO SCH (22:08)
[2022-05-23] VITALS (7 sets, daily range): BP systolic 112–150; BP diastolic 60–77
[2022-05-23] MEDS: VANCOMYCIN HCL 125 MG CAPSULE PO SCH ×3 (05:25→17:00)
[2022-05-23] MEDS: LEVOTHYROXINE SODIUM 50 MCG TAB PO SCH (05:30)
[2022-05-23] MEDS: HYDRALAZINE HCL 25 MG TAB PO SCH ×3 (05:31→22:35)
[2022-05-23] MEDS: PANTOPRAZOLE SOD 40 MG TABEC PO SCH (07:40)
[2022-05-23] MEDS: SODIUM BICARBONATE 650 MG TAB PO SCH ×3 (07:40→17:00)
[2022-05-23] MEDS: SEVELAMER CARBONATE 800 MG TAB PO SCH ×3 (07:40→17:00)
[2022-05-23] MEDS: COLLAGENASE 5 GM TUBE TP SCH (08:40)
[2022-05-23] MEDS: BALSAM PERU/CASTOR OIL 60 GM OINT...G. TP SCH (08:40)
[2022-05-23] MEDS: NIFEDIPINE CR 30 MG TAB PO SCH (09:11)
[2022-05-23] MEDS: CEFTRIAXONE 2 GM in SODIUM CHLORIDE 0.9% 100 ML IV SCH (09:12)
[2022-05-23] MEDS: RIFAXIMIN 550 MG TABLET PO SCH ×2 (09:12→22:26)
[2022-05-23] MEDS: LISINOPRIL 20 MG TAB PO SCH (09:12)
[2022-05-23] MEDS: GABAPENTIN 100 MG CAP PO SCH ×3 (09:12→22:26)
[2022-05-23] MEDS ORDERED: SODIUM CHLORIDE 0.9% 1000ML 2,000 ML ONE (16:51)
[2022-05-23] MEDS: ATORVASTATIN 40 MG TAB PO SCH (22:27)
[2022-05-23] MEDS: HYDROCODONE/APAP 5MG-325MG TAB PO PRN (22:35)
[2022-05-24] MEDS: VANCOMYCIN HCL 125 MG CAPSULE PO SCH ×3 (00:41→11:45)
[2022-05-24 02:10] VITALS: BP 150/77
[2022-05-24] MEDS: HYDRALAZINE HCL 25 MG TAB PO SCH ×2 (06:06→14:52)
[2022-05-24] MEDS: LEVOTHYROXINE SODIUM 50 MCG TAB PO SCH (06:06)
[2022-05-24 06:11] VITALS: BP 155/83
[2022-05-24 07:49] VITALS: BP 138/73
[2022-05-24 08:00] VITALS: BP 138/73
[2022-05-24] MEDS: SEVELAMER CARBONATE 800 MG TAB PO SCH ×2 (08:35→11:44)
[2022-05-24] MEDS: SODIUM BICARBONATE 650 MG TAB PO SCH ×2 (08:35→11:44)
[2022-05-24] MEDS: GABAPENTIN 100 MG CAP PO SCH ×2 (08:36→14:52)
[2022-05-24] MEDS: RIFAXIMIN 550 MG TABLET PO SCH (08:36)
[2022-05-24] MEDS: LISINOPRIL 20 MG TAB PO SCH (08:36)
[2022-05-24] MEDS: PANTOPRAZOLE SOD 40 MG TABEC PO SCH (08:36)
[2022-05-24] MEDS: NIFEDIPINE CR 30 MG TAB PO SCH (08:37)
[2022-05-24] MEDS: CEFTRIAXONE 2 GM in SODIUM CHLORIDE 0.9% 100 ML IV SCH (08:37)
[2022-05-24] MEDS: BALSAM PERU/CASTOR OIL 60 GM OINT...G. TP SCH (08:37)
[2022-05-24] MEDS: COLLAGENASE 5 GM TUBE TP SCH (08:37)
[2022-05-24 11:35] VITALS: BP 124/76
[2022-05-24] MEDS: LIDOCAINE 4% PATCH TP PRN (11:51)
[2022-05-24 15:58] VITALS: BP 120/70
== END 2022-05-24 17:22 | disposition home health service (06) | DRG 682 ==
LOC: ER 07:03 → ERHOLD 09:03 → MED/SURG3 17:24
PROVIDERS: ADMIT Internal Medicine; ATTEND Internal Medicine
PROC: 5A1D70Z Performance of Urinary Filtration, Intermittent, Less than 6 Hours Per Day (ICD-10-PCS; 2022-05-19)
PROC: 0W9G3ZZ Drainage of Peritoneal Cavity, Percutaneous Approach (ICD-10-PCS; principal; 2022-05-22)
DX: I12.0 Hypertensive chronic kidney disease with stage 5 chronic kidney disease or end stage renal disease (principal); G93.41 Metabolic encephalopathy; N18.6 End stage renal disease; E11.52 Type 2 diabetes mellitus with diabetic peripheral angiopathy with gangrene; I96 Gangrene, not elsewhere classified; L97.414 Non-pressure chronic ulcer of right heel and midfoot with necrosis of bone; N17.9 Acute kidney failure, unspecified; E11.649 Type 2 diabetes mellitus with hypoglycemia without coma; K70.31 Alcoholic cirrhosis of liver with ascites; E11.319 Type 2 diabetes mellitus with unspecified diabetic retinopathy without macular edema; E11.22 Type 2 diabetes mellitus with diabetic chronic kidney disease; E11.621 Type 2 diabetes mellitus with foot ulcer; E87.5 Hyperkalemia; R19.7 Diarrhea, unspecified; Z99.2 Dependence on renal dialysis; Z91.15 Patient's noncompliance with renal dialysis; Z82.49 Family history of ischemic heart disease and other diseases of the circulatory system; Z83.3 Family history of diabetes mellitus; E78.5 Hyperlipidemia, unspecified; Q78.9 Osteochondrodysplasia, unspecified; D63.8 Anemia in other chronic diseases classified elsewhere; E03.9 Hypothyroidism, unspecified; Z91.19 Patient's noncompliance with other medical treatment and regimen; Z20.822 Contact with and (suspected) exposure to COVID-19; I25.10 Atherosclerotic heart disease of native coronary artery without angina pectoris; Z87.891 Personal history of nicotine dependence; Z86.19 Personal history of other infectious and parasitic diseases
CPT/HCPCS: 36415; 49083; 70450; 71045; 76705; 80048; 80053; 82140; 82948; 83605; 83735; 84100; 84443; 85025; 85610; 85730; 86706; 86707; 87040; 87071; 87205; 87350; 93005; 94640; 94799; 97139; 99251; C1729; J0360; J0696; J2543; J3370; J7030; J7050; J7070; J7799

== ENCOUNTER → 2022-06-08 | Outpatient (CLI) | payer MEDICARE ==
[~2022-06-08] MED LIST changes: +ALBUMIN 25% 12.5GM 50ML 200 ML IV ONE
== END ==
LOC: US 08:34
PROVIDERS: ATTEND Internal Medicine Gastroenterology
DX: R18.8 Other ascites (principal); K74.60 Unspecified cirrhosis of liver
CPT/HCPCS: 49083

== ENCOUNTER → 2022-06-12 | Day surgery (SDC) | payer MEDICARE ==
[~2022-06-12] MED LIST changes: -ALBUMIN 25% 12.5GM 50ML 200 ML IV ONE; +DEXTROSE 5% 250ML 250 ML IV ONE; +DEXTROSE 50% SYRINGE 50 ML IV ONE; +GLUCAGON FOR INJ 1 MG VIAL IV ONE; +MIDAZOLAM HCL 2 MG/2 ML VIAL ONE; +PROPOFOL IV EMULSION 10 MG/ML 20 ML VIAL IV ONE; +SODIUM CHLORIDE 0.9% 500ML 500 ML ONE
[2022-06-12 08:48] LABS: BASOPHILS # (AUTO) 0.1 (0.0-0.1); BASOPHILS % 0.7 % (0.0-1.0); EOSINOPHILS # (AUTO) 0.2 (0.0-0.4); HEMATOCRIT 29.9 % (38.2-49.6); HEMOGLOBIN 9.6 g/dL (14.0-18.0); LYMPHOCYTES # (AUTO) 2.1 (1.0-3.2); LYMPHOCYTES % 23.3 % (18.0-39.1); MEAN CORPUSCULAR HEMOGLOBIN 28.9 pg (28-32); MEAN CORPUSCULAR HGB CONC 32.1 g/dL (31-35); MEAN CORPUSCULAR VOLUME 90.1 fL (81-99); MONOCYTES # (AUTO) 0.6 (0.2-0.8); MONOCYTES % 6.2 % (4.4-11.3); NEUTROPHILS # (AUTO) 6.2 (2.1-6.9); NEUTROPHILS % 67.5 % (38.7-80.0); PLATELET COUNT 216 x10e3/uL (140-360); RED BLOOD COUNT 3.32 x10e6/uL (4.3-5.7)
[2022-06-12 09:05] LABS: INR 1.21; PROTHROMBIN TIME 16.4 seconds (11.9-14.5)
[2022-06-12 09:12] LABS: ALBUMIN 1.8 g/dL (3.5-5.0); ALBUMIN/GLOBULIN RATIO 0.3 (0.8-2.0); ANION GAP 9.5 mmol/L (8-16); CALCIUM 7.6 mg/dL (8.4-10.2); CREATININE, SERUM 5.52 mg/dL (0.72-1.25); POTASSIUM 5.5 mmol/L (3.5-5.1)
[2022-06-12 12:40] VITALS: BP 130/85
== END | disposition home or self-care (01) ==
LOC: OR 08:18
PROVIDERS: ATTEND Internal Medicine Gastroenterology
DX: K74.69 Other cirrhosis of liver (principal); I85.10 Secondary esophageal varices without bleeding; K76.6 Portal hypertension; K31.89 Other diseases of stomach and duodenum; E03.9 Hypothyroidism, unspecified; G93.41 Metabolic encephalopathy; E11.22 Type 2 diabetes mellitus with diabetic chronic kidney disease; I12.0 Hypertensive chronic kidney disease with stage 5 chronic kidney disease or end stage renal disease; N18.6 End stage renal disease; I96 Gangrene, not elsewhere classified; M06.9 Rheumatoid arthritis, unspecified; E78.5 Hyperlipidemia, unspecified; I44.0 Atrioventricular block, first degree; F32.A Depression, unspecified; F17.210 Nicotine dependence, cigarettes, uncomplicated; Z20.822 Contact with and (suspected) exposure to COVID-19; Z99.2 Dependence on renal dialysis; Z79.899 Other long term (current) drug therapy
CPT/HCPCS: 0223U; 36415; 43244; 80053; 82948; 85025; 85610; 85730; J1610; J2250; J2704; J7040; J7070; J7799; 43239

== ENCOUNTER 2022-06-20 10:30 | Inpatient (IN) | payer MEDICARE ==
[~2022-06-20] VITALS: Ht 172.7 cm; Wt 72.6 kg
[~2022-06-20 10:30] MED LIST changes: -DEXTROSE 5% 250ML 250 ML IV ONE; -DEXTROSE 50% SYRINGE 50 ML IV ONE; -GLUCAGON FOR INJ 1 MG VIAL IV ONE; -MIDAZOLAM HCL 2 MG/2 ML VIAL ONE; -PROPOFOL IV EMULSION 10 MG/ML 20 ML VIAL IV ONE; -SODIUM CHLORIDE 0.9% 500ML 500 ML ONE
[2022-06-20] MEDS ORDERED: ONDANSETRON HCL INJ 2MG/ML 2ML 2 MG/ML VIAL IV STA (10:38)
[2022-06-20] MEDS ORDERED: Morphine 4mg INJECTION 4 MG/ML INJ IV STA (10:38)
[2022-06-20 11:01] LABS: BASOPHILS % 0.2 % (0.0-1.0); EOSINOPHILS # (AUTO) 0.2 (0.0-0.4); EOSINOPHILS % 1.4 % (0.0-6.0); HEMATOCRIT 25.6 % (38.2-49.6); HEMOGLOBIN 8.4 g/dL (14.0-18.0); LYMPHOCYTES # (AUTO) 1.6 (1.0-3.2); LYMPHOCYTES % 10.8 % (18.0-39.1); MEAN CORPUSCULAR HEMOGLOBIN 28.8 pg (28-32); MEAN CORPUSCULAR HGB CONC 32.8 g/dL (31-35); MEAN CORPUSCULAR VOLUME 87.7 fL (81-99); MONOCYTES # (AUTO) 0.5 (0.2-0.8); NEUTROPHILS # (AUTO) 12.8 (2.1-6.9); NEUTROPHILS % 84.1 % (38.7-80.0); PLATELET COUNT 197 x10e3/uL (140-360); RED BLOOD COUNT 2.92 x10e6/uL (4.3-5.7); RED CELL DISTRIBUTION WIDTH 16.6 % (11.7-14.4)
[2022-06-20 11:25] LABS: ALANINE AMINOTRANSFERASE 8 IU/L (0-55); ALBUMIN 1.4 g/dL (3.5-5.0); ALBUMIN/GLOBULIN RATIO 0.2 (0.8-2.0); ALKALINE PHOSPHATASE 262 IU/L (40-150); ANION GAP 14.8 mmol/L (8-16); BLOOD UREA NITROGEN 34 mg/dL (7-26); BUN/CREATININE RATIO 7 (6-25); CALCIUM 7.5 mg/dL (8.4-10.2); CARBON DIOXIDE 28 mmol/L (22-29); CHLORIDE 94 mmol/L (98-107); CREATINE KINASE 22 IU/L (30-200); CREATININE, SERUM 5.03 mg/dL (0.72-1.25); GLUCOSE 67 mg/dL (74-118); MAGNESIUM 1.9 MG/DL (1.3-2.1); POTASSIUM 3.8 mmol/L (3.5-5.1); SODIUM 133 mmol/L (136-145)
[2022-06-20 11:27] LABS: INR 1.5; PARTIAL THROMBOPLASTIN TIME 42.3 seconds (23.8-35.5); PROTHROMBIN TIME 19.4 seconds (11.9-14.5)
[2022-06-20 11:34] LABS: LIPASE < 4 U/L (8-78)
[2022-06-20] MEDS ORDERED: IOPAMIDOL 370 MG/ML 100 ML INFUS..BTL INJ ONE (12:09)
[2022-06-20] MEDS ORDERED: ALBUMIN 25% 12.5GM 50ML 200 ML IV ONE (13:39)
[2022-06-20] MEDS ORDERED: ONDANSETRON HCL INJ 2MG/ML 2ML 2 MG/ML VIAL IV PRN ×2 (14:15→14:45)
[2022-06-20] MEDS: METRONIDAZOLE 500MG/NS 100ML 100 ML IV SCH ×2 (15:01→22:27)
[2022-06-20] MEDS: RIFAXIMIN 550 MG TABLET PO SCH (15:57)
[2022-06-20] MEDS: SODIUM BICARBONATE 650 MG TAB PO SCH ×2 (15:57→22:27)
[2022-06-20 16:23] LABS: BODY FLUID APPEARANCE SL.CLOUDY; BODY FLUID COLOR YELLOW
[2022-06-20 16:24] LABS: RBC,BODY FLUID 0.001 cells/uL; WBC,BODY FLUID 0.277 cells/uL
[2022-06-20 16:48] VITALS: BP 148/75
[2022-06-20 17:00] LABS: LYMPHOCYTES,BODY FLUID 11 %; MONO/MACROPHG,BODY FLUID 47 %; NEUTROPHILS,BODY FLUID 40 %; OTHER CELLS,BODY FLUID 2 %
[2022-06-20] MEDS: METOPROLOL TARTRATE 25 MG TAB PO SCH (17:00)
[2022-06-20 20:00] VITALS: BP 146/82
[2022-06-20 21:00] VITALS: BP 146/82
[2022-06-20] MEDS: ATORVASTATIN 40 MG TAB PO SCH (22:26)
[2022-06-21] VITALS (7 sets, daily range): BP systolic 124–149; BP diastolic 65–81
[2022-06-21 03:50] LABS: CREATINE KINASE MB 1.1 ng/mL (0-5.0)
[2022-06-21] MEDS: RIFAXIMIN 550 MG TABLET PO SCH ×2 (03:55→16:06)
[2022-06-21] MEDS: METRONIDAZOLE 500MG/NS 100ML 100 ML IV SCH ×4 (03:55→21:32)
[2022-06-21 04:53] LABS: ALBUMIN 1.7 g/dL (3.5-5.0); ALBUMIN/GLOBULIN RATIO 0.3 (0.8-2.0); ANION GAP 14.5 mmol/L (8-16); CALCIUM 7.8 mg/dL (8.4-10.2); CREATININE, SERUM 3.6 mg/dL (0.72-1.25); POTASSIUM 3.5 mmol/L (3.5-5.1)
[2022-06-21] MEDS: LEVOTHYROXINE SODIUM 50 MCG TAB PO SCH ×2 (05:59→07:28)
[2022-06-21] MEDS: PANTOPRAZOLE SOD 40 MG TABEC PO SCH (05:59)
[2022-06-21] MEDS: SODIUM BICARBONATE 650 MG TAB PO SCH ×3 (09:03→21:32)
[2022-06-21] MEDS: METOPROLOL TARTRATE 25 MG TAB PO SCH ×2 (09:03→17:39)
[2022-06-21 09:12] LABS: BASOPHILS # (AUTO) 0.1 (0.0-0.1); BASOPHILS % 0.5 % (0.0-1.0); EOSINOPHILS # (AUTO) 0.2 (0.0-0.4); EOSINOPHILS % 1.4 % (0.0-6.0); HEMATOCRIT 28.4 % (38.2-49.6); HEMOGLOBIN 9.6 g/dL (14.0-18.0); LYMPHOCYTES # (AUTO) 1.1 (1.0-3.2); LYMPHOCYTES % 8.4 % (18.0-39.1); MEAN CORPUSCULAR HGB CONC 33.8 g/dL (31-35); MEAN CORPUSCULAR VOLUME 85.8 fL (81-99); MONOCYTES # (AUTO) 0.5 (0.2-0.8); MONOCYTES % 3.7 % (4.4-11.3); NEUTROPHILS % 85.5 % (38.7-80.0); PLATELET COUNT 176 x10e3/uL (140-360); RED BLOOD COUNT 3.31 x10e6/uL (4.3-5.7); RED CELL DISTRIBUTION WIDTH 16.6 % (11.7-14.4)
[2022-06-21] MEDS ORDERED: CEFTRIAXONE 1 GM VIAL ONE (09:23)
[2022-06-21 09:41] LABS: CREATINE KINASE MB 0.8 ng/mL (0-5.0)
[2022-06-21 19:32] LABS: CREATINE KINASE MB 0.9 ng/mL (0-5.0)
[2022-06-21] MEDS: ATORVASTATIN 40 MG TAB PO SCH (21:32)
[2022-06-22] VITALS (7 sets, daily range): BP systolic 108–142; BP diastolic 52–76
[2022-06-22] MEDS: METRONIDAZOLE 500MG/NS 100ML 100 ML IV SCH ×4 (02:33→22:06)
[2022-06-22] MEDS: RIFAXIMIN 550 MG TABLET PO SCH ×2 (02:33→14:28)
[2022-06-22] MEDS: PANTOPRAZOLE SOD 40 MG TABEC PO SCH (04:51)
[2022-06-22] MEDS: LEVOTHYROXINE SODIUM 50 MCG TAB PO SCH (04:52)
[2022-06-22 05:44] LABS: BASOPHILS % 0.4 % (0.0-1.0); EOSINOPHILS # (AUTO) 0.3 (0.0-0.4); HEMATOCRIT 29.8 % (38.2-49.6); HEMOGLOBIN 9.5 g/dL (14.0-18.0); LYMPHOCYTES # (AUTO) 1.5 (1.0-3.2); LYMPHOCYTES % 14.1 % (18.0-39.1); MEAN CORPUSCULAR HEMOGLOBIN 28.5 pg (28-32); MEAN CORPUSCULAR HGB CONC 31.9 g/dL (31-35); MEAN CORPUSCULAR VOLUME 89.5 fL (81-99); MONOCYTES # (AUTO) 0.3 (0.2-0.8); MONOCYTES % 3.1 % (4.4-11.3); NEUTROPHILS # (AUTO) 8.4 (2.1-6.9); NEUTROPHILS % 79.1 % (38.7-80.0); PLATELET COUNT 161 x10e3/uL (140-360); RED BLOOD COUNT 3.33 x10e6/uL (4.3-5.7); RED CELL DISTRIBUTION WIDTH 17.2 % (11.7-14.4)
[2022-06-22 06:04] LABS: ANION GAP 15.3 mmol/L (8-16); CALCIUM 7.6 mg/dL (8.4-10.2); CREATININE, SERUM 4.72 mg/dL (0.72-1.25); POTASSIUM 3.3 mmol/L (3.5-5.1)
[2022-06-22] MEDS ORDERED: SODIUM CHLORIDE 0.9% 1000ML 2,000 ML ONE (08:58)
[2022-06-22] MEDS: METOPROLOL TARTRATE 25 MG TAB PO SCH ×2 (09:00→16:36)
[2022-06-22] MEDS: SODIUM BICARBONATE 650 MG TAB PO SCH ×3 (09:00→22:06)
[2022-06-22] MEDS: VANCOMYCIN HCL 125 MG CAPSULE PO SCH ×2 (14:29→17:48)
[2022-06-22] MEDS ORDERED: SODIUM CHLORIDE 0.9% 100 ML ONE (14:51)
[2022-06-22] MEDS: ATORVASTATIN 40 MG TAB PO SCH (22:06)
[2022-06-23] VITALS (8 sets, daily range): BP systolic 97–172; BP diastolic 56–97
[2022-06-23] MEDS: VANCOMYCIN HCL 125 MG CAPSULE PO SCH ×5 (01:13→22:37)
[2022-06-23] MEDS: RIFAXIMIN 550 MG TABLET PO SCH ×2 (02:15→13:49)
[2022-06-23] MEDS: METRONIDAZOLE 500MG/NS 100ML 100 ML IV SCH ×3 (03:43→14:11)
[2022-06-23] MEDS: LEVOTHYROXINE SODIUM 50 MCG TAB PO SCH (06:27)
[2022-06-23] MEDS: PANTOPRAZOLE SOD 40 MG TABEC PO SCH (06:27)
[2022-06-23] MEDS ORDERED: LIDOCAINE HCL 1% LOCAL INJ 20 ML VIAL INJ ONE ×2 (08:00→18:15)
[2022-06-23] MEDS ORDERED: BETAMETHASONE DISODIUM PHOS 6 MG/ML VIAL IM ONE (08:00)
[2022-06-23] MEDS ORDERED: BUPIVACAINE 0.25% 30ML SDV INJ ONE (08:00)
[2022-06-23] MEDS: Morphine 2mg Syringe 2 MG/ML SYR IV PRN ×4 (08:54→22:38)
[2022-06-23] MEDS: SODIUM BICARBONATE 650 MG TAB PO SCH ×3 (09:49→22:37)
[2022-06-23] MEDS: BALSAM PERU/CASTOR OIL 60 GM OINT...G. TP SCH (09:49)
[2022-06-23] MEDS: METOPROLOL TARTRATE 25 MG TAB PO SCH ×2 (09:49→17:46)
[2022-06-23] MEDS: COLLAGENASE 5 GM TUBE TOP SCH ×2 (09:49→22:37)
[2022-06-23] MEDS: ATORVASTATIN 40 MG TAB PO SCH (22:37)
[2022-06-24] VITALS (10 sets, daily range): BP systolic 130–172; BP diastolic 72–95
[2022-06-24] MEDS: RIFAXIMIN 550 MG TABLET PO SCH ×3 (02:15→19:00)
[2022-06-24 05:36] LABS: BASOPHILS % 0.5 % (0.0-1.0); EOSINOPHILS # (AUTO) 0.5 (0.0-0.4); EOSINOPHILS % 6.8 % (0.0-6.0); HEMATOCRIT 29.5 % (38.2-49.6); HEMOGLOBIN 9.9 g/dL (14.0-18.0); LYMPHOCYTES # (AUTO) 1.6 (1.0-3.2); LYMPHOCYTES % 21.2 % (18.0-39.1); MEAN CORPUSCULAR HEMOGLOBIN 28.4 pg (28-32); MEAN CORPUSCULAR HGB CONC 33.6 g/dL (31-35); MEAN CORPUSCULAR VOLUME 84.8 fL (81-99); MONOCYTES # (AUTO) 0.4 (0.2-0.8); MONOCYTES % 4.7 % (4.4-11.3); NEUTROPHILS % 66.4 % (38.7-80.0); PLATELET COUNT 138 x10e3/uL (140-360); RED BLOOD COUNT 3.48 x10e6/uL (4.3-5.7); RED CELL DISTRIBUTION WIDTH 16.8 % (11.7-14.4)
[2022-06-24] MEDS: PANTOPRAZOLE SOD 40 MG TABEC PO SCH (05:50)
[2022-06-24] MEDS: VANCOMYCIN HCL 125 MG CAPSULE PO SCH ×3 (05:50→18:59)
[2022-06-24] MEDS: LEVOTHYROXINE SODIUM 50 MCG TAB PO SCH (05:50)
[2022-06-24 05:56] LABS: ANION GAP 13.9 mmol/L (8-16); CALCIUM 7.1 mg/dL (8.4-10.2); CREATININE, SERUM 4.13 mg/dL (0.72-1.25)
[2022-06-24 05:57] LABS: POTASSIUM 2.9 mmol/L (3.5-5.1)
[2022-06-24] MEDS: Morphine 2mg Syringe 2 MG/ML SYR IV PRN ×3 (05:58→18:59)
[2022-06-24] MEDS ORDERED: POTASSIUM CHLORIDE 20 MEQ TAB CR PO ONE (07:30)
[2022-06-24] MEDS ORDERED: LIDOCAINE HCL 1% LOCAL INJ 20 ML VIAL INJ ONE (08:00)
[2022-06-24] MEDS ORDERED: BETAMETHASONE DISODIUM PHOS 6 MG/ML VIAL IM ONE (08:00)
[2022-06-24] MEDS ORDERED: BUPIVACAINE 0.25% 30ML SDV INJ ONE (08:00)
[2022-06-24] MEDS: METOPROLOL TARTRATE 25 MG TAB PO SCH ×2 (09:00→17:00)
[2022-06-24] MEDS ORDERED: SODIUM CHLORIDE 0.9% 1000ML 2,000 ML ONE (09:00)
[2022-06-24] MEDS: SODIUM BICARBONATE 650 MG TAB PO SCH ×3 (10:51→21:00)
[2022-06-24] MEDS: COLLAGENASE 5 GM TUBE TOP SCH ×2 (10:51→21:00)
[2022-06-24] MEDS: ATORVASTATIN 40 MG TAB PO SCH (10:51)
[2022-06-24] MEDS: BALSAM PERU/CASTOR OIL 60 GM OINT...G. TP SCH (11:17)
[2022-06-24] MEDS ORDERED: SODIUM CHLORIDE 0.9% 1000ML 1,000 ML ONE (11:34)
[2022-06-25] MEDS: VANCOMYCIN HCL 125 MG CAPSULE PO SCH ×2 (00:25→05:58)
[2022-06-25] MEDS: RIFAXIMIN 550 MG TABLET PO SCH (02:15)
[2022-06-25 05:49] VITALS: BP 149/74
[2022-06-25 05:56] LABS: ANION GAP 12.6 mmol/L (8-16); CALCIUM 7.2 mg/dL (8.4-10.2); CREATININE, SERUM 3.09 mg/dL (0.72-1.25); POTASSIUM 3.6 mmol/L (3.5-5.1)
[2022-06-25] MEDS: LEVOTHYROXINE SODIUM 50 MCG TAB PO SCH (05:58)
[2022-06-25] MEDS: PANTOPRAZOLE SOD 40 MG TABEC PO SCH (05:58)
[2022-06-25 08:15] VITALS: BP 134/78
[2022-06-25] MEDS: METOPROLOL TARTRATE 25 MG TAB PO SCH (08:28)
[2022-06-25] MEDS: COLLAGENASE 5 GM TUBE TOP SCH (08:28)
[2022-06-25] MEDS: SODIUM BICARBONATE 650 MG TAB PO SCH (08:28)
[2022-06-25] MEDS: BALSAM PERU/CASTOR OIL 60 GM OINT...G. TP SCH (08:29)
[2022-06-25 08:51] VITALS: BP 134/68
[2022-06-25 11:53] VITALS: BP 161/86
[2022-06-25] MEDS ORDERED: VANCOMYCIN HCL125 MG PO (12:17)
== END 2022-06-25 13:42 | disposition home health service (06) | DRG 853 ==
LOC: ER 10:34 → ERHOLD 14:33 → MED/SURG3 16:16
PROVIDERS: ADMIT Internal Medicine; ATTEND Internal Medicine
PROC: 0W9G3ZZ Drainage of Peritoneal Cavity, Percutaneous Approach (ICD-10-PCS; principal; 2022-06-20)
PROC: 5A1D70Z Performance of Urinary Filtration, Intermittent, Less than 6 Hours Per Day (ICD-10-PCS; 2022-06-20)
PROC: 3E03329 Introduction of Other Anti-infective into Peripheral Vein, Percutaneous Approach (ICD-10-PCS; 2022-06-20)
PROC: 0JBR0ZZ Excision of Left Foot Subcutaneous Tissue and Fascia, Open Approach (ICD-10-PCS; 2022-06-23)
PROC: 0KBV0ZZ Excision of Right Foot Muscle, Open Approach (ICD-10-PCS; 2022-06-23)
PROC: 0KBV0ZZ Excision of Right Foot Muscle, Open Approach (ICD-10-PCS; 2022-06-23)
PROC: 0JBR0ZZ Excision of Left Foot Subcutaneous Tissue and Fascia, Open Approach (ICD-10-PCS; 2022-06-23)
DX: A41.9 Sepsis, unspecified organism (principal); K65.2 Spontaneous bacterial peritonitis; N18.6 End stage renal disease; R18.8 Other ascites; I12.0 Hypertensive chronic kidney disease with stage 5 chronic kidney disease or end stage renal disease; E87.2 Acidosis; K76.6 Portal hypertension; E87.1 Hypo-osmolality and hyponatremia; A04.71 Enterocolitis due to Clostridium difficile, recurrent; L97.415 Non-pressure chronic ulcer of right heel and midfoot with muscle involvement without evidence of necrosis; L97.425 Non-pressure chronic ulcer of left heel and midfoot with muscle involvement without evidence of necrosis; E11.52 Type 2 diabetes mellitus with diabetic peripheral angiopathy with gangrene; I96 Gangrene, not elsewhere classified; M86.171 Other acute osteomyelitis, right ankle and foot; D63.8 Anemia in other chronic diseases classified elsewhere; K74.60 Unspecified cirrhosis of liver; E11.621 Type 2 diabetes mellitus with foot ulcer; E11.69 Type 2 diabetes mellitus with other specified complication; E11.42 Type 2 diabetes mellitus with diabetic polyneuropathy; E11.22 Type 2 diabetes mellitus with diabetic chronic kidney disease; G89.4 Chronic pain syndrome; E03.9 Hypothyroidism, unspecified; I25.10 Atherosclerotic heart disease of native coronary artery without angina pectoris; M06.9 Rheumatoid arthritis, unspecified; D64.9 Anemia, unspecified; Z20.822 Contact with and (suspected) exposure to COVID-19; Z99.2 Dependence on renal dialysis; Z91.15 Patient's noncompliance with renal dialysis; Z83.3 Family history of diabetes mellitus; Z82.49 Family history of ischemic heart disease and other diseases of the circulatory system
CPT/HCPCS: 36415; 49083; 71045; 74177; 80048; 80053; 82040; 82140; 82550; 82553; 82948; 83615; 83630; 83690; 83735; 84157; 84484; 85025; 85610; 85730; 86704; 86706; 87040; 87045; 87070; 87177; 87205; 87324; 87340; 87449; 88112; 88300; 88305; 89051; 93005; 94799; 99251; 99284; C1729; J0696; J0720; J2001; J2270; J2405; J7030; J7050; Q9967

== ENCOUNTER 2022-07-09 08:50 | Emergency (ER) | payer MEDICARE ==
[~2022-07-09] VITALS: Ht 172.7 cm; Wt 72.6 kg
[2022-07-09] MEDS ORDERED: ALBUMIN 25% 25GM 100ML 0.25 GM/ML BTL IV ONE (09:00)
[2022-07-09 09:25] LABS: BASOPHILS # (AUTO) 0.1 (0.0-0.1); BASOPHILS % 0.9 % (0.0-1.0); EOSINOPHILS # (AUTO) 0.3 (0.0-0.4); EOSINOPHILS % 3.5 % (0.0-6.0); HEMATOCRIT 23.5 % (38.2-49.6); HEMOGLOBIN 7.6 g/dL (14.0-18.0); LYMPHOCYTES # (AUTO) 2.4 (1.0-3.2); LYMPHOCYTES % 31.4 % (18.0-39.1); MEAN CORPUSCULAR HEMOGLOBIN 28.1 pg (28-32); MEAN CORPUSCULAR HGB CONC 32.3 g/dL (31-35); MONOCYTES # (AUTO) 0.6 (0.2-0.8); MONOCYTES % 7.9 % (4.4-11.3); NEUTROPHILS # (AUTO) 4.3 (2.1-6.9); NEUTROPHILS % 55.9 % (38.7-80.0); PLATELET COUNT 206 x10e3/uL (140-360); RED CELL DISTRIBUTION WIDTH 18.2 % (11.7-14.4)
[2022-07-09 09:45] LABS: ALBUMIN 1.4 g/dL (3.5-5.0); ALBUMIN/GLOBULIN RATIO 0.2 (0.8-2.0); CALCIUM 7.4 mg/dL (8.4-10.2); CREATININE, SERUM 6.38 mg/dL (0.72-1.25)
[2022-07-09 13:16] VITALS: BP 154/86
[2022-07-10] MEDS ORDERED: VENLAFAXINE HCL75 M1 PO (15:57)
[2022-07-10] MEDS ORDERED: GABAPENTIN300 MG PO (15:57)
[2022-07-10] MEDS ORDERED: BUMETANIDE1 MG PO (15:57)
[2022-07-10] MEDS ORDERED: SANTYL TOP (17:38)
[2022-07-10] MEDS ORDERED: ATORVASTATIN CA20 MG PO (17:38)
[2022-07-10] MEDS ORDERED: DICYCLOMINE HCL10 MG PO (17:38)
== END 2022-07-09 13:20 | disposition home or self-care (01) ==
LOC: ER 08:59
DX: R53.1 Weakness (principal); I12.0 Hypertensive chronic kidney disease with stage 5 chronic kidney disease or end stage renal disease; E11.22 Type 2 diabetes mellitus with diabetic chronic kidney disease; N18.6 End stage renal disease; Z99.2 Dependence on renal dialysis; K76.9 Liver disease, unspecified; E03.9 Hypothyroidism, unspecified
CPT/HCPCS: 0223U; 36415; 71045; 73560; 80053; 82140; 84484; 85025; 93005; 99284

== ENCOUNTER → 2022-08-05 | Outpatient (CLI) | payer MEDICARE ==
[~2022-08-05] MED LIST changes: +ALBUMIN 25% 12.5GM 50ML 200 ML IV ONE; +SANTYL TOP; +VENLAFAXINE HCL75 M1 PO
== END ==
LOC: US 15:10
PROVIDERS: ATTEND Internal Medicine Gastroenterology
DX: R18.8 Other ascites (principal)
CPT/HCPCS: 49083; C1729

== ENCOUNTER → 2022-08-24 | Outpatient (CLI) | payer MEDICARE ==
[~2022-08-24] MED LIST changes: +ALBUMIN 25% 12.5GM 50ML 100 ML IV ONE; -ALBUMIN 25% 12.5GM 50ML 200 ML IV ONE
[2022-08-24 12:23] LABS: BASOPHILS # (AUTO) 0.1 (0.0-0.1); BASOPHILS % 0.5 % (0.0-1.0); EOSINOPHILS # (AUTO) 0.1 (0.0-0.4); EOSINOPHILS % 1.1 % (0.0-6.0); HEMATOCRIT 32.9 % (38.2-49.6); HEMOGLOBIN 10.1 g/dL (14.0-18.0); LYMPHOCYTES # (AUTO) 2.1 (1.0-3.2); MEAN CORPUSCULAR HEMOGLOBIN 27.7 pg (28-32); MEAN CORPUSCULAR HGB CONC 30.7 g/dL (31-35); MEAN CORPUSCULAR VOLUME 90.4 fL (81-99); MONOCYTES # (AUTO) 0.7 (0.2-0.8); MONOCYTES % 7.5 % (4.4-11.3); NEUTROPHILS # (AUTO) 6.3 (2.1-6.9); NEUTROPHILS % 67.7 % (38.7-80.0); PLATELET COUNT 129 x10e3/uL (140-360); RED BLOOD COUNT 3.64 x10e6/uL (4.3-5.7); RED CELL DISTRIBUTION WIDTH 16.4 % (11.7-14.4)
[2022-08-24 12:53] LABS: INR 1.38; PROTHROMBIN TIME 18.1 seconds (11.9-14.5)
[2022-08-24 12:54] LABS: PARTIAL THROMBOPLASTIN TIME 51.8 seconds (23.8-35.5)
== END ==
LOC: US 12:11
PROVIDERS: ATTEND Internal Medicine Gastroenterology
DX: R18.8 Other ascites (principal); K74.60 Unspecified cirrhosis of liver
CPT/HCPCS: 36415; 49083; 85025; 85610; 85730; C1729

== ENCOUNTER → 2022-09-09 | Outpatient (CLI) | payer MEDICARE ==
[~2022-09-09] MED LIST changes: -ALBUMIN 25% 12.5GM 50ML 100 ML IV ONE; +ALBUMIN 25% 12.5GM 50ML 200 ML IV ONE
[2022-09-09 12:44] LABS: BASOPHILS % 0.2 % (0.0-1.0); EOSINOPHILS # (AUTO) 0.1 (0.0-0.4); EOSINOPHILS % 0.8 % (0.0-6.0); HEMATOCRIT 32.8 % (38.2-49.6); HEMOGLOBIN 10.1 g/dL (14.0-18.0); LYMPHOCYTES # (AUTO) 1.6 (1.0-3.2); LYMPHOCYTES % 24.6 % (18.0-39.1); MEAN CORPUSCULAR HGB CONC 30.8 g/dL (31-35); MEAN CORPUSCULAR VOLUME 90.9 fL (81-99); MONOCYTES # (AUTO) 0.5 (0.2-0.8); MONOCYTES % 8.1 % (4.4-11.3); NEUTROPHILS # (AUTO) 4.3 (2.1-6.9); NEUTROPHILS % 66.1 % (38.7-80.0); PLATELET COUNT 174 x10e3/uL (140-360); RED BLOOD COUNT 3.61 x10e6/uL (4.3-5.7); RED CELL DISTRIBUTION WIDTH 18.9 % (11.7-14.4)
[2022-09-09 12:55] LABS: INR 1.3; PROTHROMBIN TIME 17.3 seconds (11.9-14.5)
[2022-09-09 12:56] LABS: PARTIAL THROMBOPLASTIN TIME 42.6 seconds (23.8-35.5)
[2022-09-09 13:04] LABS: ALBUMIN 1.3 g/dL (3.5-5.0); ALBUMIN/GLOBULIN RATIO 0.2 (0.8-2.0); ANION GAP 12.6 mmol/L (8-16); CALCIUM 7.3 mg/dL (8.4-10.2); CREATININE, SERUM 4.12 mg/dL (0.72-1.25); POTASSIUM 3.6 mmol/L (3.5-5.1)
== END ==
LOC: US 12:21
PROVIDERS: ATTEND Internal Medicine Gastroenterology
DX: R18.8 Other ascites (principal); K74.60 Unspecified cirrhosis of liver
CPT/HCPCS: 36415; 49083; 80053; 85025; 85610; 85730; C1729

== ENCOUNTER → 2022-09-28 | Outpatient (CLI) | payer MEDICARE | LOC: US 11:56 | PROVIDERS: ATTEND Internal Medicine Gastroenterology | DX: R18.8 Other ascites (principal); K74.60 Unspecified cirrhosis of liver | CPT/HCPCS: 49083 ==